=== PATIENT | male | born 1945 | race Caucasian/White ===

== ENCOUNTER 2016-05-10 08:15 | Outpatient (RCR) | payer MEDICARE ==
--- OUTSIDE RECORDS SUMMARY | 2016-03-01 08:59 | XMS REPORT | Continuity of Care Document ---
Author Author [facility] Organization [facility] Address Unknown Phone Unavailable Care Team Providers Care Account Executive Trainee Name Role Phone Felton Del Rio PCP [phone] Source Comments Some departments are not documenting in the electronic medical record. If you do not see the information that you expected, contact Release of Information in the Health Information Management department at [phone] for further assistance in locating additional records.[facility] Active Allergies and Adverse Reactions No Known Allergies Current Medications Prescription Sig. Disp. Refills Start End Date Status Date IBUPROFEN (MOTRIN PO) Take by mouth as Needed. Active amoxicillin (AMOXIL) 875 Take 875 mg by mouth Active mg tablet daily. NAPROXEN SODIUM (ALEVE Take by mouth as Needed. Active PO) Active Problems Problem Noted Date Tooth infection 07/07/2014 Social History Tobacco Use Types Packs/Day Years Used Date Never Smoker Smokeless Tobacco: Never Used Alcohol Use Drinks/Week oz/Week Comments Yes 2 Glasses of 1.2 wine Last Filed Vital Signs Vital Sign Reading Time Taken Blood Pressure 137/74 10/05/2015 10:17 AM CDT Pulse 58 10/05/2015 10:17 AM CDT Temperature 36.8 C (98.2 F) 10/05/2015 10:17 AM CDT Respiratory Rate 16 10/05/2015 10:17 AM CDT Height 1.854 m (6' 0.99") 10/05/2015 10:17 AM CDT Weight 99.338 kg (219 lb) 10/05/2015 10:17 AM CDT Body Mass Index 28.9 10/05/2015 10:17 AM CDT Oxygen Saturation 98% 10/05/2015 10:17 AM CDT Plan of Care Health Maintenance Due Date Last Done Comments Hepatitis C Screening 1945 Physical (Comprehensive) 01/29/1952 Exam Pertussis Vaccine 01/29/1956 Tetanus Vaccine 1962 Colorectal Cancer 1995 Screening Shingles Vaccine 2005 Prevnar/Pneumovax (#1) 2010 Influenza Vaccine 11/19/2015 Results from Last 3 Months Not on file
[2016-03-01 09:13] LABS: BASOPHILS # (AUTO) 0.1 10^3/uL (0.0-0.1); BASOPHILS % (AUTO) 0 % (0-10); EOSINOPHILS # (AUTO) 0.2 10^3/uL (0.0-0.3); EOSINOPHILS % (AUTO) 0 % (0-10); LYMPHOCYTES # (AUTO) 68.2 X 10^3 (1.0-4.0); LYMPHOCYTES % (AUTO) 91 % (12-44); MEAN CORPUSCULAR HEMOGLOBIN 31 PG (25-34); MEAN CORPUSCULAR HGB CONC 32 G/DL (32-36); MEAN CORPUSCULAR VOLUME 96 FL (80-99); MEAN PLATELET VOLUME 11.3 FL (7.4-10.4); MONOCYTES # (AUTO) 1.6 X 10^3 (0.0-1.0); MONOCYTES % (AUTO) 2 % (0-12); NEUTROPHILS # (AUTO) 4.7 X 10^3 (1.8-7.8); NEUTROPHILS % (AUTO) 6 % (42-75); PLATELET COUNT 170 10^3/uL (130-400); RED BLOOD COUNT 4.55 10^6/uL (4.35-5.85); RED CELL DISTRIBUTION WIDTH 15.1 % (10.0-14.5)
[2016-03-01 09:14] LABS: WHITE BLOOD COUNT 74.8 10^3/uL (4.3-11.0)
[2016-03-01 09:49] LABS: ALANINE AMINOTRANSFERASE 33 U/L (0-55); ALBUMIN 3.9 G/DL (3.2-4.5); ANION GAP 8 MMOL/L (5-14); ASPARTATE AMINO TRANSFERASE 38 U/L (5-34); BILIRUBIN,TOTAL 0.4 MG/DL (0.1-1.0); BLOOD UREA NITROGEN 15 MG/DL (7-18); BUN/CREATININE RATIO 16; CALCIUM 8.7 MG/DL (8.5-10.1); CARBON DIOXIDE 24 MMOL/L (21-32); CHLORIDE 108 MMOL/L (98-107); CREATININE SERUM 0.92 MG/DL (0.60-1.30); GFR ESTIMATED > 60; GLUCOSE 118 MG/DL (70-105); LACTATE DEHYDROGENASE 254 U/L (125-220); POTASSIUM 4.6 MMOL/L (3.6-5.0); SODIUM 140 MMOL/L (135-145); TOTAL PROTEIN 6.1 G/DL (6.4-8.2)
[2016-04-12 08:44] LABS: BASOPHILS # (AUTO) 0.2 10^3/uL (0.0-0.1); BASOPHILS % (AUTO) 0 % (0-10); EOSINOPHILS # (AUTO) 0.2 10^3/uL (0.0-0.3); EOSINOPHILS % (AUTO) 0 % (0-10); LYMPHOCYTES # (AUTO) 90.2 X 10^3 (1.0-4.0); LYMPHOCYTES % (AUTO) 89 % (12-44); MEAN CORPUSCULAR HEMOGLOBIN 32 PG (25-34); MEAN CORPUSCULAR HGB CONC 33 G/DL (32-36); MEAN CORPUSCULAR VOLUME 96 FL (80-99); MEAN PLATELET VOLUME 11.3 FL (7.4-10.4); MONOCYTES # (AUTO) 2.1 X 10^3 (0.0-1.0); MONOCYTES % (AUTO) 2 % (0-12); NEUTROPHILS # (AUTO) 8.4 X 10^3 (1.8-7.8); NEUTROPHILS % (AUTO) 8 % (42-75); PLATELET COUNT 236 10^3/uL (130-400); RED BLOOD COUNT 4.73 10^6/uL (4.35-5.85); RED CELL DISTRIBUTION WIDTH 14.8 % (10.0-14.5)
[2016-04-12 09:49] LABS: ALANINE AMINOTRANSFERASE 24 U/L (0-55); ALBUMIN 4.2 G/DL (3.2-4.5); ANION GAP 10 MMOL/L (5-14); ASPARTATE AMINO TRANSFERASE 28 U/L (5-34); BILIRUBIN,TOTAL 0.4 MG/DL (0.1-1.0); BLOOD UREA NITROGEN 22 MG/DL (7-18); BUN/CREATININE RATIO 23; CALCIUM 8.7 MG/DL (8.5-10.1); CARBON DIOXIDE 23 MMOL/L (21-32); CHLORIDE 106 MMOL/L (98-107); CREATININE SERUM 0.96 MG/DL (0.60-1.30); GFR ESTIMATED > 60; GLUCOSE 92 MG/DL (70-105); LACTATE DEHYDROGENASE 258 U/L (125-220); SODIUM 139 MMOL/L (135-145); TOTAL PROTEIN 6.2 G/DL (6.4-8.2)
[2016-04-12 12:50] LABS: WHITE BLOOD COUNT 101.1 10^3/uL (4.3-11.0)
[2016-05-10 08:52] LABS: BASOPHILS # (AUTO) 0.2 10^3/uL (0.0-0.1); BASOPHILS % (AUTO) 0 % (0-10); EOSINOPHILS # (AUTO) 0.2 10^3/uL (0.0-0.3); EOSINOPHILS % (AUTO) 0 % (0-10); LYMPHOCYTES # (AUTO) 82.9 X 10^3 (1.0-4.0); LYMPHOCYTES % (AUTO) 90 % (12-44); MEAN CORPUSCULAR HEMOGLOBIN 31 PG (25-34); MEAN CORPUSCULAR HGB CONC 33 G/DL (32-36); MEAN CORPUSCULAR VOLUME 95 FL (80-99); MEAN PLATELET VOLUME 11.2 FL (7.4-10.4); MONOCYTES # (AUTO) 2.6 X 10^3 (0.0-1.0); MONOCYTES % (AUTO) 3 % (0-12); NEUTROPHILS # (AUTO) 5.9 X 10^3 (1.8-7.8); NEUTROPHILS % (AUTO) 6 % (42-75); PLATELET COUNT 216 10^3/uL (130-400); RED BLOOD COUNT 4.79 10^6/uL (4.35-5.85); RED CELL DISTRIBUTION WIDTH 14.9 % (10.0-14.5)
[2016-05-10 09:46] LABS: WHITE BLOOD COUNT 91.7 10^3/uL (4.3-11.0)
== END 2016-05-30 | disposition home or self-care (01) ==
LOC: ONC 08:15
PROVIDERS: ATTEND Internal Medicine Hematology & Oncology
DX: C91.10 Chronic lymphocytic leukemia of B-cell type not having achieved remission (principal); Z79.899 Other long term (current) drug therapy
CPT/HCPCS: 36415; 80053; 83615; 85025; 99213

== ENCOUNTER 2016-06-28 09:37 | Outpatient (RCR) | payer MEDICARE ==
[2016-06-28 09:05] LABS: BASOPHILS # (AUTO) 0.2 10^3/uL (0.0-0.1); BASOPHILS % (AUTO) 0 % (0-10); EOSINOPHILS # (AUTO) 0.3 10^3/uL (0.0-0.3); EOSINOPHILS % (AUTO) 0 % (0-10); LYMPHOCYTES # (AUTO) 80.5 X 10^3 (1.0-4.0); LYMPHOCYTES % (AUTO) 89 % (12-44); MEAN CORPUSCULAR HEMOGLOBIN 31 PG (25-34); MEAN CORPUSCULAR HGB CONC 32 G/DL (32-36); MEAN CORPUSCULAR VOLUME 96 FL (80-99); MEAN PLATELET VOLUME 11.4 FL (7.4-10.4); MONOCYTES # (AUTO) 3.3 X 10^3 (0.0-1.0); MONOCYTES % (AUTO) 4 % (0-12); NEUTROPHILS # (AUTO) 6.5 X 10^3 (1.8-7.8); NEUTROPHILS % (AUTO) 7 % (42-75); PLATELET COUNT 200 10^3/uL (130-400); RED BLOOD COUNT 4.67 10^6/uL (4.35-5.85)
[2016-06-28 09:19] LABS: WHITE BLOOD COUNT 90.7 10^3/uL (4.3-11.0)
[2016-06-28 09:43] LABS: ALANINE AMINOTRANSFERASE 24 U/L (0-55); ANION GAP 9 MMOL/L (5-14); ASPARTATE AMINO TRANSFERASE 29 U/L (5-34); BILIRUBIN,TOTAL 0.4 MG/DL (0.1-1.0); BLOOD UREA NITROGEN 17 MG/DL (7-18); BUN/CREATININE RATIO 18; CALCIUM 8.8 MG/DL (8.5-10.1); CARBON DIOXIDE 26 MMOL/L (21-32); CHLORIDE 107 MMOL/L (98-107); CREATININE SERUM 0.93 MG/DL (0.60-1.30); GFR ESTIMATED > 60; GLUCOSE 90 MG/DL (70-105); LACTATE DEHYDROGENASE 208 U/L (125-220); POTASSIUM 5.4 MMOL/L (3.6-5.0); SODIUM 142 MMOL/L (135-145); TOTAL PROTEIN 6.2 G/DL (6.4-8.2)
== END 2016-09-26 | disposition home or self-care (01) ==
LOC: ONC 09:37
PROVIDERS: ATTEND Internal Medicine Hematology & Oncology
DX: C91.10 Chronic lymphocytic leukemia of B-cell type not having achieved remission; Z79.899 Other long term (current) drug therapy
CPT/HCPCS: 36415; 80053; 83615; 85025; 99213

== ENCOUNTER 2016-11-04 16:21 | Emergency (ER) | payer MEDICARE ==
[~2016-11-04] VITALS: Ht 182.9 cm; Wt 98.0 kg
[2016-11-04] MEDS ORDERED: PANT40TA3 (16:37)
[2016-11-04] MEDS ORDERED: SUCR1TAB (16:37)
--- NOTE | 2016-11-04 17:14 | ED Abdominal Pain ---
General Chief Complaint: Abdominal/GI Problems Stated Complaint: STOMACH PAIN Nursing Triage Note: ADM TO ROOM REPORTS ONSET OF LOW ABD PAIN NOTICED KNOT IN LOW ABD WENT TO DR IN [place] AND [facility] [employer] WAS GIVEN X2 RX,BUT DID NOT GET THEM FILLED. WAS TO HAVE CT,BUT DID NOT GET ORDERED. HAS PMH OF LUKEMIA DX 2 YEARS AGO. DID NOT DO ANY CHEMO. Sepsis Screen: No Definite Risk Source of Information: Patient, Family Exam Limitations: No Limitations History of Present Illness Time Seen By Provider: 17:14 Initial Comments 71-year-old male patient presents to the emergency department with complaints of lower abdominal pain this a.m. States he was seen by the nurse practitioner in [place] and Dr. STREETER's office and was given 2 prescriptions, but did not fill these. States he was supposed to be scheduled today for a CAT scan of the abdomen, but did not get the order from the doctor. States they were going to schedule the scan for next week, but he leaves for a business trip Monday. Does have a history of leukemia and did NOT take chemotherapy. Patient states he sees Dr. Austin and [facility] APRN every 3-4 months for blood work. WBC count normally ranges in the 70K-100K per patient. Patient states he noticed a "knot" next to the umbilicus this a.m. which was tender. I initially thought this was related to a lymph node. States he was fishing around on the area when it "instantly went away." Reports pain has improved; however, he still continues to have mild to moderate abdominal pain. Timing/Duration: Other (this a.m.) Severity/Quality: Sharp Location: Periumbilical Radiation: No Radiation Activities at Onset: None Modifying Factors: Worsens With Palpation Allergies and Home Medications Allergies Coded Allergies: No Allergy Information Available (Unverified , 01/01/15) Home Medications Pantoprazole Sodium 40 Mg Tablet., (Reported) Sucralfate 1 Gm Tablet, (Reported) Review of Systems Constitutional: No chills, No fever, No malaise Respiratory: Denies Cough, Denies Shortness of Air Cardiovascular: Denies Chest Pain, Denies Edema, Denies Lightheadedness, Denies Palpitations Gastrointestinal: See HPI, Denies Abdomen Distended, Abdominal Pain, Denies Constipated, Denies Diarrhea, Denies Nausea, Denies Poor Appetite, Denies Poor Fluid Intake, Denies Rectal Bleeding, Denies Vomiting Genitourinary: Denies Burning, Denies Frequency, Denies Hematuria, Denies Pain Musculoskeletal: no symptoms reported Skin: no symptoms reported Psychiatric/Neurological: No Symptoms Reported All Other Systems Reviewed Negative Unless Noted: Yes (Negative excepted noted.) Past Dhoslea-Rvpztm-Arwzug Hx Patient Social History Alcohol Use: Occasionally Uses Recreational Drug Use: No Smoking Status: Never a Smoker Recent Foreign Travel: No Contact w/Someone Who Travel: No Recent Infectious Disease Expo: No Surgeries HX Surgeries: Yes Surgeries: Gallbladder Respiratory Hx Respiratory Disorders: No Cardiovascular Hx Cardiac Disorders: Yes Cardiac Disorders: Heart Attack, High Cholesterol, Hypertension Neurological Hx Neurological Disorders: No Genitourinary Hx Genitourinary Disorders: No Gastrointestinal Hx Gastrointestinal Disorders: No Musculoskeletal Hx Musculoskeletal Disorders: No Cancer Hx Cancer: Yes Cancer: Leukemia Reviewed Nursing Assessment Reviewed/Agree w Nursing PMH: Yes Family Medical History Significant Family History: No Pertinent Family Hx Physical Exam Vital Signs VS - Last 72 Hours, by Label 11/04/16 11/04/16 16:27 20:15 Temp 97.8 97.8 Pulse 82 82 Resp 18 18 B/P (MAP) 119/79 Pulse Ox 96 96 O2 Delivery Room Air Capillary Refill : Less Than 3 Seconds General Appearance: WD/WN, no apparent distress, other (younger appearing than stated age.) HEENT: PERRL/EOMI, pharynx normal Neck: supple, normal inspection Respiratory: lungs clear, normal breath sounds, no respiratory distress, no accessory muscle use Cardiovascular: regular rate, rhythm, no murmur Gastrointestinal: normal bowel sounds, soft, no organomegaly, No distended, No guarding, No rebound, tenderness (periumbilical tenderness), hernia (reducible umbilical hernia with mild tenderness) Extremities: normal capillary refill Back: normal inspection Neurologic/Psychiatric: alert, normal mood/affect, oriented x 3 Skin: normal color, warm/dry Progress/Results/Core Measures Results/Orders Lab Results Laboratory Tests Test 11/04/16 17:37 11/04/16 17:40 Range/Units White Blood Count 137.2 *H 4.3-11.0 10^3/uL Red Blood Count 4.70 4.35-5.85 10^6/uL Hemoglobin 14.0 13.3-17.7 G/DL Hematocrit 45 40-54 % Mean Corpuscular Volume 95 80-99 FL Mean Corpuscular Hemoglobin 30 25-34 PG Mean Corpuscular Hemoglobin Concent 32 32-36 G/DL Red Cell Distribution Width 15.0 H 10.0-14.5 % Platelet Count 183 130-400 10^3/uL Mean Platelet Volume 11.5 H 7.4-10.4 FL Neutrophils (%) (Auto) 42-75 % Lymphocytes (%) (Auto) 12-44 % Monocytes (%) (Auto) 0-12 % Eosinophils (%) (Auto) 0-10 % Basophils (%) (Auto) 0-10 % Neutrophils # (Auto) 1.8-7.8 X 10^3 Lymphocytes # (Auto) 1.0-4.0 X 10^3 Monocytes # (Auto) 0.0-1.0 X 10^3 Eosinophils # (Auto) 0.0-0.3 10^3/uL Basophils # (Auto) 0.0-0.1 10^3/uL Sodium Level 139 135-145 MMOL/L Potassium Level 4.8 3.6-5.0 MMOL/L Chloride Level 107 98-107 MMOL/L Carbon Dioxide Level 23 21-32 MMOL/L Anion Gap 9 5-14 MMOL/L Blood Urea Nitrogen 21 H 7-18 MG/DL Creatinine 0.94 0.60-1.30 MG/DL Estimat Glomerular Filtration Rate > 60 BUN/Creatinine Ratio 22 Glucose Level 106 H 70-105 MG/DL Calcium Level 9.1 8.5-10.1 MG/DL Total Bilirubin 0.3 0.1-1.0 MG/DL Aspartate Amino Transf (AST/SGOT) 36 H 5-34 U/L Alanine Aminotransferase (ALT/SGPT) 29 0-55 U/L Alkaline Phosphatase 90 40-136 U/L Total Protein 6.7 6.4-8.2 GM/DL Albumin 4.1 3.2-4.5 GM/DL Lipase 17 8-78 U/L Urine Color YELLOW Urine Clarity CLEAR Urine pH 6 5-9 Urine Specific [place] 1.010 L 1.016-1.022 Urine Protein NEGATIVE NEGATIVE Urine Glucose (UA) NEGATIVE NEGATIVE Urine Ketones NEGATIVE NEGATIVE Urine Nitrite NEGATIVE NEGATIVE Urine Bilirubin NEGATIVE NEGATIVE Urine Urobilinogen NORMAL NORMAL MG/DL Urine Leukocyte Esterase NEGATIVE NEGATIVE Urine RBC (Auto) NEGATIVE NEGATIVE Urine RBC NONE /HPF Urine WBC NONE /HPF Urine Squamous Epithelial Cells RARE /HPF Urine Crystals NONE /LPF Urine Bacteria NONE /HPF Urine Casts NONE /LPF Urine Mucus NEGATIVE /LPF Urine Culture Indicated NO My Orders Orders - KERRY PAIZ Cbc With Automated Diff (11/04/16 17:30) Comprehensive Metabolic Panel (11/04/16 17:30) Lipase (11/04/16 17:30) Ua Culture If Indicated (11/04/16 17:30) Saline Lock/Iv-Start (11/04/16 17:30) Ct Abdomen/Pelvis W (11/04/16 17:30) Iohexol Injection (Omnipaque 350 Mg/Ml 1 (11/04/16 18:15) Ns (Ivpb) (Sodium Chloride 0.9% Ivpb Bag (11/04/16 18:15) Medications Given in ED Vital Signs/I&O Vital Sign - Last 12Hours 11/04/16 11/04/16 16:27 20:15 Temp 97.8 97.8 Pulse 82 82 Resp 18 18 B/P (MAP) 119/79 Pulse Ox 96 96 O2 Delivery Room Air Blood Pressure Mean: 92 Diagnostic Imaging Diagonstic Imaging: CT Plain Films/CT/US/NM/MRI: abdomen, pelvis Comments FINDINGS: There has been development of interstitial lung disease in the anterior left base which appears to involve the lower lobe. There is suggestion of adenopathy in the visualized portion of the mediastinum although this is incompletely evaluated. There is continued splenomegaly. No focal hepatic or splenic abnormality is identified. The gallbladder is surgically absent. No pancreatic or adrenal gland abnormality is identified. The kidneys are also stable and unremarkable. There has been an overall increase in central retroperitoneal and mesenteric adenopathy. The largest lymph nodes are present along the iliac chains with right external iliac lymph node measuring 6.5 x 3.2 cm. This previously measured 5.1 x 2.1 cm. Right common iliac lymph node measures 3.4 x 2.8 cm with previous measurement of 2.2 x 1.6 cm. No free fluid is identified. There is no evidence of bowel obstruction. At the level of the umbilicus there is a persistent nodule slightly right of midline which measures 1.5 cm in diameter. This could represent subcutaneous fluid collection or mass. Partially opacified urinary bladder is unremarkable. There are also enlarged inguinal lymph nodes, bilaterally. IMPRESSION: Overall worsening of splenomegaly and diffuse abdominal and pelvic adenopathy indicating progression of leukemia. The palpable abnormality in the anterior abdomen may represent subcutaneous fluid collection or enlarging lymph node. Clinical correlation would be useful. Aspiration could be attempted. Otherwise, there is no evidence of acute abnormality or other significant change. Dictated on workstation # [id number] Reviewed: Reviewed by Me (radiology report reviewed by me) Departure Communication Progress Notes Patient is noted to have a white count of 137K with a known h/o leukemia. I did discuss the patient's case with Dr. Christianson. Recommends discharge to home and follow-up as an outpatient with Dr. Raines this week. All laboratory findings, diagnostic study findings, and recommendations by Dr. Christianson for follow-up with Dr. Raines were discussed with the patient. Patient states he will return from his trip on Monday and will call Monday morning for appointment time with Dr. Austin. Patient also instructed to follow-up with Dr. Smith as an outpatient with a surgeon of his choice for discussion of possible need for hernia repair. Patient voices understanding and states he will contact Dr. Smith's office for appointment time. Impression Impression: Primary Impression: Abdominal pain Qualified Codes: R10.33 - Periumbilical pain Additional Impressions: Umbilical hernia without obstruction and without gangrene History of leukemia Disposition: 01 HOME, SELF-CARE Condition: Improved Departure-Patient Inst. Decision time for Depature: 19:40 Referrals: YONIS SMITH RICKY D DO (PCP/Family) Primary Care Physician Patient Instructions: Acute Abdomen (Belly Pain), Adult (DC), Umbilical Hernia , Adult Add. Discharge Instructions: All discharge instructions reviewed with patient and/or family. Voiced understanding. Continue usual home medications. Drink plenty of fluids. Avoid heavy lifting greater than 8-10 pounds. Abdominal binder as instructed. Follow-up with Dr. Smith as an outpatient for recheck and for possible need of umbilical hernia repair. Follow-up with your family practitioner and oncologist for recheck. Return to the emergency department immediately for worsened pain, abdominal swelling, fever, vomiting, or any other concerns. KERRY PAIZ Nov 04, 2016 17:14
[2016-11-04 17:49] LABS: MEAN CORPUSCULAR HEMOGLOBIN 30 PG (25-34); MEAN CORPUSCULAR HGB CONC 32 G/DL (32-36); MEAN CORPUSCULAR VOLUME 95 FL (80-99); MEAN PLATELET VOLUME 11.5 FL (7.4-10.4); PLATELET COUNT 183 10^3/uL (130-400)
[2016-11-04 17:52] LABS: BILIRUBIN,URINE NEGATIVE (NEGATIVE); KETONES,URINE NEGATIVE (NEGATIVE); LEUKOCYTE ESTERASE ,URINE NEGATIVE (NEGATIVE); NITRITE,URINE NEGATIVE (NEGATIVE); PH,URINE 6 (5-9); PROTEIN,URINE NEGATIVE (NEGATIVE); UROBILINOGEN,URINE NORMAL (NORMAL)
[2016-11-04 17:52] LABS: WHITE BLOOD COUNT 137.2 10^3/uL (4.3-11.0)
[2016-11-04 18:01] LABS: SQUAMOUS EPITHELIAL CELL,UR RARE /HPF
[2016-11-04 18:10] LABS: ALANINE AMINOTRANSFERASE 29 U/L (0-55); ALBUMIN 4.1 GM/DL (3.2-4.5); ANION GAP 9 MMOL/L (5-14); ASPARTATE AMINO TRANSFERASE 36 U/L (5-34); BILIRUBIN,TOTAL 0.3 MG/DL (0.1-1.0); BLOOD UREA NITROGEN 21 MG/DL (7-18); BUN/CREATININE RATIO 22; CALCIUM 9.1 MG/DL (8.5-10.1); CARBON DIOXIDE 23 MMOL/L (21-32); CHLORIDE 107 MMOL/L (98-107); CREATININE SERUM 0.94 MG/DL (0.60-1.30); GFR ESTIMATED > 60; GLUCOSE 106 MG/DL (70-105); LIPASE 17 U/L (8-78); POTASSIUM 4.8 MMOL/L (3.6-5.0); SODIUM 139 MMOL/L (135-145); TOTAL PROTEIN 6.7 GM/DL (6.4-8.2)
[2016-11-04] MEDS ORDERED: IOHEXOL 350 MG/ML 100 ML (OMNIPAQUE 350) VIAL IV ONE (18:15)
[2016-11-04] MEDS ORDERED: NS 100 ML (IVPB) BAG IV ONE (18:15)
--- NOTE | 2016-11-04 18:46 | Diagnostic Imaging Report ---
PROCEDURE: CT abdomen and pelvis with contrast. TECHNIQUE: Multiple contiguous axial images were obtained through the abdomen and pelvis after administration of intravenous contrast. INDICATION: Abdominal pain and palpable abnormality in the abdomen in patient with known lymphoma. COMPARISON: Study of 08/20/2015. FINDINGS: There has been development of interstitial lung disease in the anterior left base which appears to involve the lower lobe. There is suggestion of adenopathy in the visualized portion of the mediastinum although this is incompletely evaluated. There is continued splenomegaly. No focal hepatic or splenic abnormality is identified. The gallbladder is surgically absent. No pancreatic or adrenal gland abnormality is identified. The kidneys are also stable and unremarkable. There has been an overall increase in central retroperitoneal and mesenteric adenopathy. The largest lymph nodes are present along the iliac chains with right external iliac lymph node measuring 6.5 x 3.2 cm. This previously measured 5.1 x 2.1 cm. Right common iliac lymph node measures 3.4 x 2.8 cm with previous measurement of 2.2 x 1.6 cm. No free fluid is identified. There is no evidence of bowel obstruction. At the level of the umbilicus there is a persistent nodule slightly right of midline which measures 1.5 cm in diameter. This could represent subcutaneous fluid collection or mass. Partially opacified urinary bladder is unremarkable. There are also enlarged inguinal lymph nodes, bilaterally. IMPRESSION: Overall worsening of splenomegaly and diffuse abdominal and pelvic adenopathy indicating progression of leukemia. The palpable abnormality in the anterior abdomen may represent subcutaneous fluid collection or enlarging lymph node. Clinical correlation would be useful. Aspiration could be attempted. Otherwise, there is no evidence of acute abnormality or other significant change. Dictated by: Dictated on workstation # [id number]
[2016-11-04 20:15] VITALS: BP 119/79
== END 2016-11-04 20:15 | disposition home or self-care (01) ==
LOC: EDUNIT# 16:21 → ER 16:24
DX: K42.9 Umbilical hernia without obstruction or gangrene (principal); I25.2 Old myocardial infarction; E78.00 Pure hypercholesterolemia, unspecified; I10 Essential (primary) hypertension; Z85.6 Personal history of leukemia
CPT/HCPCS: 36415; 74177; 80053; 81000; 83690; 85025; 99282

== ENCOUNTER → 2016-11-15 | Outpatient (CLI) | payer MEDICARE ==
[~2016-11-15] MED LIST: PANT40TA3; SUCR1TAB
--- NOTE | 2016-11-16 13:48 | Diagnostic Imaging Report ---
PET/CT. INDICATION: Chronic lymphocytic leukemia. After intravenous administration of 12.84 mCi of F18-FDG, a series of overlapping emission and transmission PET images was obtained. In the coronal, transaxial and sagittal planes, the area imaged extended from the skull base through the upper thighs. There are no previous PET/CT examinations available for comparison. The recent CT abdomen/pelvis exam of 11/04/16 did note an increase in the size of the spleen as well as diffuse abdominal and pelvic adenopathy. FINDINGS: On this study, the spleen is enlarged but not hypermetabolic. The spleen has a maximum SUV of 2.5 which is similar to the maximum SUV of the liver. However, the extensive abdominal and pelvic adenopathy seen on the prior exam is again evident. The nodes are also only slightly hypermetabolic with maximum SUVs ranging from 2.0 to 3.5. The images through the thorax also show that there has been an increase in the adenopathy involving both axillae and both supraclavicular regions since the previous CT neck, chest, abdomen and pelvis exam of 08/20/15. These nodes show only slight hypermetabolic activity as well with a maximum SUV of approximately 3.3. There has also been a generalized increase in the adenopathy involving the neck since the prior exam. The maximum SUV of these nodes is 3.9. There is no other hypermetabolic activity identified to suggest the presence of malignancy. There is a small area of slightly increased hypermetabolic activity in the rectum. This has a maximum SUV of 3.4. I suspect that this is physiologic in nature but clinical followup is recommended. IMPRESSION: 1. The spleen is enlarged but not hypermetabolic. However, there is extensive adenopathy throughout the neck, chest, abdomen and pelvis. While these nodes are not intensely hypermetabolic, they should be considered secondary to neoplasm until proven otherwise. 2. The small focus of slightly increased hypermetabolic activity in the rectum may well be physiologic in nature. The possibility of an underlying malignancy in this area would be unlikely but should still be considered. 3. These results were discussed with NIGHAT Pinon. Dictated by: Dictated on workstation # [id number]
== END ==
LOC: RAD 11:07
PROVIDERS: ATTEND Nurse Practitioner Adult Health
DX: C83.00 Small cell B-cell lymphoma, unspecified site (principal); C91.10 Chronic lymphocytic leukemia of B-cell type not having achieved remission

== ENCOUNTER 2016-11-29 08:54 | Outpatient (RCR) | payer MEDICARE ==
[2016-11-14 09:33] LABS: BASOPHILS # (AUTO) 0.4 10^3/uL (0.0-0.1); BASOPHILS % (AUTO) 0 % (0-10); EOSINOPHILS # (AUTO) 0.3 10^3/uL (0.0-0.3); EOSINOPHILS % (AUTO) 0 % (0-10); LYMPHOCYTES # (AUTO) 114.1 X 10^3 (1.0-4.0); LYMPHOCYTES % (AUTO) 93 % (12-44); MEAN CORPUSCULAR HEMOGLOBIN 30 PG (25-34); MEAN CORPUSCULAR HGB CONC 31 G/DL (32-36); MEAN CORPUSCULAR VOLUME 95 FL (80-99); MEAN PLATELET VOLUME 11.3 FL (7.4-10.4); MONOCYTES % (AUTO) 2 % (0-12); NEUTROPHILS # (AUTO) 6.2 X 10^3 (1.8-7.8); NEUTROPHILS % (AUTO) 5 % (42-75); PLATELET COUNT 188 10^3/uL (130-400); RED BLOOD COUNT 4.63 10^6/uL (4.35-5.85); RED CELL DISTRIBUTION WIDTH 14.9 % (10.0-14.5)
[2016-11-14 09:34] LABS: WHITE BLOOD COUNT 122.9 10^3/uL (4.3-11.0)
[2016-11-14 09:56] LABS: ALANINE AMINOTRANSFERASE 44 U/L (0-55); ALBUMIN 3.8 GM/DL (3.2-4.5); ANION GAP 7 MMOL/L (5-14); ASPARTATE AMINO TRANSFERASE 46 U/L (5-34); BILIRUBIN,TOTAL 0.4 MG/DL (0.1-1.0); BLOOD UREA NITROGEN 21 MG/DL (7-18); BUN/CREATININE RATIO 20; CALCIUM 8.6 MG/DL (8.5-10.1); CARBON DIOXIDE 25 MMOL/L (21-32); CHLORIDE 108 MMOL/L (98-107); CREATININE SERUM 1.03 MG/DL (0.60-1.30); GFR ESTIMATED > 60; GLUCOSE 94 MG/DL (70-105); LACTATE DEHYDROGENASE 302 U/L (125-220); SODIUM 140 MMOL/L (135-145); TOTAL PROTEIN 6.5 GM/DL (6.4-8.2)
[2016-11-14 11:38] LABS: POTASSIUM 5.8 MMOL/L (3.6-5.0)
[2016-11-23 09:27] LABS: BASOPHILS # (AUTO) 0.4 10^3/uL (0.0-0.1); BASOPHILS % (AUTO) 0 % (0-10); EOSINOPHILS # (AUTO) 0.2 10^3/uL (0.0-0.3); EOSINOPHILS % (AUTO) 0 % (0-10); LYMPHOCYTES # (AUTO) 118.7 X 10^3 (1.0-4.0); LYMPHOCYTES % (AUTO) 90 % (12-44); MEAN CORPUSCULAR HEMOGLOBIN 30 PG (25-34); MEAN CORPUSCULAR HGB CONC 32 G/DL (32-36); MEAN CORPUSCULAR VOLUME 95 FL (80-99); MONOCYTES # (AUTO) 3.7 X 10^3 (0.0-1.0); MONOCYTES % (AUTO) 3 % (0-12); NEUTROPHILS # (AUTO) 8.5 X 10^3 (1.8-7.8); NEUTROPHILS % (AUTO) 7 % (42-75); PLATELET COUNT 190 10^3/uL (130-400); RED CELL DISTRIBUTION WIDTH 14.7 % (10.0-14.5)
[2016-11-23 09:30] LABS: WHITE BLOOD COUNT 131.6 10^3/uL (4.3-11.0)
[2016-11-23 09:52] LABS: ALANINE AMINOTRANSFERASE 25 U/L (0-55); ALBUMIN 3.7 GM/DL (3.2-4.5); ANION GAP 11 MMOL/L (5-14); ASPARTATE AMINO TRANSFERASE 30 U/L (5-34); BILIRUBIN,TOTAL 0.3 MG/DL (0.1-1.0); BLOOD UREA NITROGEN 20 MG/DL (7-18); BUN/CREATININE RATIO 23; CALCIUM 8.4 MG/DL (8.5-10.1); CARBON DIOXIDE 20 MMOL/L (21-32); CHLORIDE 111 MMOL/L (98-107); CREATININE SERUM 0.86 MG/DL (0.60-1.30); GFR ESTIMATED > 60; GLUCOSE 105 MG/DL (70-105); LACTATE DEHYDROGENASE 254 U/L (125-220); MAGNESIUM 2.1 MG/DL (1.8-2.4); POTASSIUM 5.3 MMOL/L (3.6-5.0); SODIUM 142 MMOL/L (135-145); TOTAL PROTEIN 6.1 GM/DL (6.4-8.2); URIC ACID 4.7 MG/DL (2.6-7.2)
[~2016-11-29] VITALS: Ht 182.9 cm; Wt 98.9 kg
[~2016-11-29 08:54] MED LIST changes: +ACETAMINOPHEN 325 MG TAB (TYLENOL) CANCER CTR PO PRN; +BENDAMUSTINE HCL 140 MG in NS (IVPB) CANCER CENTER 50 ML IV SCH; +IBUPROFEN TABLET 200 MG TAB PO ONE; +MEPERIDINE (DEMEROL) INJ 50 MG/ML CANCER CTR IV PRN; +MEPERIDINE (DEMEROL) INJ 50 MG/ML CANCER CTR ONE; +NS IV 1000 ML (CANCER CTR) IV SCH; +NS IV ONE; +ONDANSETRON 16 MG, DEXAMETHASONE 10 MG/NS 50 ML IVPB IV SCH; +RITUXIMAB FOR IV ONE; +RITUXIMAB IV ONE; +diphenhydrAMINE 50 MG/ML INJ (CANCER CENTER) IV PRN; +riTUXimab 1,000 MG in NS (IVPB) CANCER CENTER 233 ML IV SCH
[2016-11-29 09:23] LABS: BASOPHILS % (AUTO) 0 % (0-10); EOSINOPHILS # (AUTO) 0.2 10^3/uL (0.0-0.3); EOSINOPHILS % (AUTO) 1 % (0-10); LYMPHOCYTES # (AUTO) 8.2 X 10^3 (1.0-4.0); LYMPHOCYTES % (AUTO) 53 % (12-44); MEAN CORPUSCULAR HEMOGLOBIN 31 PG (25-34); MEAN CORPUSCULAR HGB CONC 34 G/DL (32-36); MEAN CORPUSCULAR VOLUME 92 FL (80-99); MEAN PLATELET VOLUME 11.1 FL (7.4-10.4); MONOCYTES # (AUTO) 0.7 X 10^3 (0.0-1.0); MONOCYTES % (AUTO) 5 % (0-12); NEUTROPHILS # (AUTO) 6.4 X 10^3 (1.8-7.8); NEUTROPHILS % (AUTO) 41 % (42-75); PLATELET COUNT 196 10^3/uL (130-400); RED BLOOD COUNT 4.77 10^6/uL (4.35-5.85); RED CELL DISTRIBUTION WIDTH 14.9 % (10.0-14.5); WHITE BLOOD COUNT 15.5 10^3/uL (4.3-11.0)
[2016-11-29 09:56] LABS: ALANINE AMINOTRANSFERASE 51 U/L (0-55); ANION GAP 9 MMOL/L (5-14); ASPARTATE AMINO TRANSFERASE 26 U/L (5-34); BILIRUBIN,TOTAL 0.4 MG/DL (0.1-1.0); BLOOD UREA NITROGEN 24 MG/DL (7-18); BUN/CREATININE RATIO 26; CALCIUM 9.2 MG/DL (8.5-10.1); CARBON DIOXIDE 26 MMOL/L (21-32); CHLORIDE 106 MMOL/L (98-107); CREATININE SERUM 0.94 MG/DL (0.60-1.30); GFR ESTIMATED > 60; GLUCOSE 103 MG/DL (70-105); MAGNESIUM 2.2 MG/DL (1.8-2.4); POTASSIUM 5.1 MMOL/L (3.6-5.0); SODIUM 141 MMOL/L (135-145); TOTAL PROTEIN 6.5 GM/DL (6.4-8.2); URIC ACID 5.6 MG/DL (2.6-7.2)
== END 2016-12-15 12:16 | disposition home or self-care (01) ==
LOC: ONC 08:54
PROVIDERS: ATTEND Internal Medicine Hematology & Oncology
DX: Z51.11 Encounter for antineoplastic chemotherapy (principal); C91.10 Chronic lymphocytic leukemia of B-cell type not having achieved remission; Z79.899 Other long term (current) drug therapy
CPT/HCPCS: 36415; 80053; 83615; 83735; 84550; 85025; 96375; 96409; 96411; 96413; 96415; 99213

== ENCOUNTER 2016-12-21 14:53 | Outpatient (RCR) | payer MEDICARE ==
[2016-12-20 11:00] LABS: BASOPHILS % (AUTO) 0 % (0-10); EOSINOPHILS # (AUTO) 0.2 10^3/uL (0.0-0.3); EOSINOPHILS % (AUTO) 2 % (0-10); LYMPHOCYTES # (AUTO) 0.8 X 10^3 (1.0-4.0); LYMPHOCYTES % (AUTO) 13 % (12-44); MEAN CORPUSCULAR HEMOGLOBIN 31 PG (25-34); MEAN CORPUSCULAR HGB CONC 33 G/DL (32-36); MEAN CORPUSCULAR VOLUME 92 FL (80-99); MEAN PLATELET VOLUME 11.1 FL (7.4-10.4); MONOCYTES # (AUTO) 0.7 X 10^3 (0.0-1.0); MONOCYTES % (AUTO) 11 % (0-12); NEUTROPHILS # (AUTO) 4.6 X 10^3 (1.8-7.8); NEUTROPHILS % (AUTO) 73 % (42-75); PLATELET COUNT 194 10^3/uL (130-400); RED BLOOD COUNT 4.74 10^6/uL (4.35-5.85); RED CELL DISTRIBUTION WIDTH 14.4 % (10.0-14.5); WHITE BLOOD COUNT 6.2 10^3/uL (4.3-11.0)
[2016-12-20 11:21] LABS: ALANINE AMINOTRANSFERASE 26 U/L (0-55); ALBUMIN 3.9 GM/DL (3.2-4.5); ANION GAP 7 MMOL/L (5-14); ASPARTATE AMINO TRANSFERASE 28 U/L (5-34); BILIRUBIN,TOTAL 0.4 MG/DL (0.1-1.0); BLOOD UREA NITROGEN 23 MG/DL (7-18); BUN/CREATININE RATIO 26; CARBON DIOXIDE 25 MMOL/L (21-32); CHLORIDE 108 MMOL/L (98-107); CREATININE SERUM 0.87 MG/DL (0.60-1.30); GFR ESTIMATED > 60; GLUCOSE 104 MG/DL (70-105); LACTATE DEHYDROGENASE 191 U/L (125-220); MAGNESIUM 1.9 MG/DL (1.8-2.4); POTASSIUM 4.4 MMOL/L (3.6-5.0); SODIUM 140 MMOL/L (135-145); TOTAL PROTEIN 6.7 GM/DL (6.4-8.2); URIC ACID 4.1 MG/DL (2.6-7.2)
[~2016-12-21] VITALS: Ht 182.9 cm; Wt 100.2 kg
[~2016-12-21 14:53] MED LIST changes: +ACETAMINOPHEN 325 MG TAB (TYLENOL) CANCER CTR ONE; -ACETAMINOPHEN 325 MG TAB (TYLENOL) CANCER CTR PO PRN; -IBUPROFEN TABLET 200 MG TAB PO ONE; -MEPERIDINE (DEMEROL) INJ 50 MG/ML CANCER CTR IV PRN; -MEPERIDINE (DEMEROL) INJ 50 MG/ML CANCER CTR ONE; -NS IV ONE; -RITUXIMAB FOR IV ONE; -RITUXIMAB IV ONE; +diphenhydrAMINE 25 MG TAB (BENADRYL) CANCER CENTER PO ONE; +diphenhydrAMINE 25 MG TAB (BENADRYL) CANCER CENTER PO SCH
[2017-01-16 10:00] LABS: BASOPHILS % (AUTO) 0 % (0-10); EOSINOPHILS # (AUTO) 0.1 10^3/uL (0.0-0.3); EOSINOPHILS % (AUTO) 2 % (0-10); LYMPHOCYTES # (AUTO) 0.5 X 10^3 (1.0-4.0); LYMPHOCYTES % (AUTO) 10 % (12-44); MEAN CORPUSCULAR HEMOGLOBIN 32 PG (25-34); MEAN CORPUSCULAR HGB CONC 35 G/DL (32-36); MEAN CORPUSCULAR VOLUME 92 FL (80-99); MEAN PLATELET VOLUME 11.2 FL (7.4-10.4); MONOCYTES # (AUTO) 0.6 X 10^3 (0.0-1.0); MONOCYTES % (AUTO) 11 % (0-12); NEUTROPHILS % (AUTO) 77 % (42-75); PLATELET COUNT 199 10^3/uL (130-400); RED BLOOD COUNT 4.56 10^6/uL (4.35-5.85); WHITE BLOOD COUNT 5.2 10^3/uL (4.3-11.0)
[2017-01-16] MEDS ORDERED: ACETAMINOPHEN 325 MG TAB (TYLENOL) CANCER CTR ONE (10:08)
[2017-01-16 10:23] LABS: ALANINE AMINOTRANSFERASE 28 U/L (0-55); ALBUMIN 3.8 GM/DL (3.2-4.5); ANION GAP 9 MMOL/L (5-14); ASPARTATE AMINO TRANSFERASE 25 U/L (5-34); BILIRUBIN,TOTAL 0.3 MG/DL (0.1-1.0); BLOOD UREA NITROGEN 21 MG/DL (7-18); BUN/CREATININE RATIO 25; CALCIUM 8.7 MG/DL (8.5-10.1); CARBON DIOXIDE 22 MMOL/L (21-32); CHLORIDE 110 MMOL/L (98-107); CREATININE SERUM 0.85 MG/DL (0.60-1.30); GFR ESTIMATED > 60; GLUCOSE 120 MG/DL (70-105); LACTATE DEHYDROGENASE 269 U/L (125-220); POTASSIUM 4.2 MMOL/L (3.6-5.0); SODIUM 141 MMOL/L (135-145); TOTAL PROTEIN 6.3 GM/DL (6.4-8.2); URIC ACID 5.6 MG/DL (2.6-7.2)
== END 2017-01-16 15:53 | disposition home or self-care (01) ==
LOC: ONC 14:53
PROVIDERS: ATTEND Internal Medicine Hematology & Oncology
DX: Z51.11 Encounter for antineoplastic chemotherapy (principal); C91.10 Chronic lymphocytic leukemia of B-cell type not having achieved remission; K21.9 Gastro-esophageal reflux disease without esophagitis; R10.33 Periumbilical pain; Z79.899 Other long term (current) drug therapy
CPT/HCPCS: 36415; 80053; 83615; 83735; 84550; 85025; 96375; 96409; 96411; 96413; 96415

== ENCOUNTER 2017-01-17 13:57 | Outpatient (RCR) | payer MEDICARE ==
[~2017-01-17 13:57] MED LIST changes: -ACETAMINOPHEN 325 MG TAB (TYLENOL) CANCER CTR ONE; +ACETAMINOPHEN 325 MG TAB (TYLENOL) CANCER CTR PO SCH; -diphenhydrAMINE 25 MG TAB (BENADRYL) CANCER CENTER PO ONE; -diphenhydrAMINE 50 MG/ML INJ (CANCER CENTER) IV PRN
== END 2017-02-08 14:42 | disposition home or self-care (01) ==
LOC: ONC 13:57
PROVIDERS: ATTEND Internal Medicine Hematology & Oncology
DX: Z51.11 Encounter for antineoplastic chemotherapy (principal); C91.10 Chronic lymphocytic leukemia of B-cell type not having achieved remission; K21.9 Gastro-esophageal reflux disease without esophagitis; Z79.899 Other long term (current) drug therapy
CPT/HCPCS: 36415; 96375; 96409; 96413

== ENCOUNTER → 2017-02-14 | Outpatient (CLI) | payer MEDICARE ==
[~2017-02-14] MED LIST changes: -ACETAMINOPHEN 325 MG TAB (TYLENOL) CANCER CTR PO SCH; +BARIUM SUSPENSION 2.1% (VANILLA SILQ) 450 ML PO ONE; -BENDAMUSTINE HCL 140 MG in NS (IVPB) CANCER CENTER 50 ML IV SCH; +CATHETER FLUSH 10 ML SYR IV PRN; +IOHEXOL 350 MG/ML 100 ML (OMNIPAQUE 350) VIAL IV ONE; +NS 100 ML (IVPB) BAG IV ONE; -NS IV 1000 ML (CANCER CTR) IV SCH; -ONDANSETRON 16 MG, DEXAMETHASONE 10 MG/NS 50 ML IVPB IV SCH; -diphenhydrAMINE 25 MG TAB (BENADRYL) CANCER CENTER PO SCH; -riTUXimab 1,000 MG in NS (IVPB) CANCER CENTER 233 ML IV SCH
--- NOTE | 2017-02-14 20:29 | Diagnostic Imaging Report ---
CT neck, chest, abdomen, and pelvis performed with intravenous contrast. INDICATION: Leukemia. 100 mL of Omnipaque-350 is administered intravenously. COMPARISON: 11/15/2016. FINDINGS: CT neck: There are multiple minimally enlarged lymph nodes seen in the cervical chain bilaterally up to 9 mm in short axis within the level IV station on the left side and similarly up to 9 mm in level IV on the right as well. When compared to PET/CT of 11/15/2016, there is significant improvement with numerous previously seen significant alexa enlargement demonstrating resolution at this time. Most of the remaining lymph nodes are not enlarged at this point. Vascular enhancement in the jugular veins and carotid arteries appears unremarkable. There is opacification in the anterior and mid right ethmoidal air cells which is unchanged from the previous exam. The mucosal pharyngeal space appears symmetric. The osseous structures demonstrate degenerative changes in the cervical spine. CT chest: The previously enlarged lymph nodes in the axilla on both sides demonstrate significant improvement with normal-sized axillary nodes seen at this time. There is no significantly enlarged mediastinal or hilar lymph node. The heart is normal. No pericardial or pleural effusion. The thoracic aorta is normal in caliber. The heart size is normal. The lungs demonstrate no significant consolidation or mass. Minimal dependent atelectasis in the lower lobes is noted. The osseous structures appear grossly unremarkable with healed sternotomy seen. CT abdomen and pelvis: The liver, the pancreas, and the adrenal glands appear unremarkable. Cholecystectomy clips are seen. The spleen measures 14.1 x 4.7 cm in maximum axial dimensions, decreased in size when compared to prior measurements of 18 x 6.8 cm. The kidneys have symmetric enhancement and contrast excretion. There is a minimally enlarged lower abdominal left paratracheal lymph node. This is significant improvement from previous study which demonstrated multiple significantly enlarged lymph nodes in the para-aortic stations. There are mildly enlarged nodes also in the pelvis including a 9 mm right common iliac node and a 1.1 cm right external iliac node. The left external iliac station demonstrates a 1.2 cm lymph node near the level of the inguinal ligament. No inguinal lymphadenopathy of significance is seen. This is significant improvement compared to previous large pelvic lymphadenopathy. The prostate is mildly enlarged measuring 5.5 cm in transverse dimension. There is a small fat-containing periumbilical hernia. The osseous structures demonstrate mild degenerative changes and scoliotic curvature convex to the left in the lumbar spine. Degenerative changes in the SI joints are seen. IMPRESSION: CT neck: There is significant improvement with remaining minimally enlarged lower cervical chain lymph nodes bilaterally. CT chest: Significant improvement with resolution of previously seen bilateral axillary lymphadenopathy. No significantly enlarged lymph node is seen at this time. CT abdomen and pelvis: 1. Mild splenomegaly, decreased in size compared to the previous exam. 2. Minimally enlarged lower left para-aortic lymph node and minimally enlarged right common iliac and bilateral external iliac lymph nodes, significantly improved compared to the previous exam. Dictated by: Dictated on workstation # [id number]
== END ==
LOC: RAD 12:47
PROVIDERS: ATTEND Internal Medicine Hematology & Oncology
DX: Z51.11 Encounter for antineoplastic chemotherapy (principal); C91.10 Chronic lymphocytic leukemia of B-cell type not having achieved remission; R16.1 Splenomegaly, not elsewhere classified
CPT/HCPCS: 70491; 71260; 74176

== ENCOUNTER → 2017-05-03 | Outpatient (CLI) | payer MEDICARE ==
[~2017-05-03] MED LIST changes: -CATHETER FLUSH 10 ML SYR IV PRN; -NS 100 ML (IVPB) BAG IV ONE; +NS 250 ML (IVPB) BAG IV ONE
--- NOTE | 2017-05-03 10:10 | Diagnostic Imaging Report ---
INDICATION: Chronic lymphocytic leukemia. TECHNIQUE: Axial imaging through the neck, chest, abdomen and pelvis was performed after the administration of intravenous contrast. COMPARISON: Comparison is made with prior CT from 02/14/2017. FINDINGS: CT NECK: The visualized intracranial structures are unremarkable. Opacification of right ethmoid air cells is again seen. Bilateral globes and orbits are unremarkable. Posterior nasopharynx, oropharynx and larynx are unremarkable. No definite thyroid mass is detected. Bilateral submandibular glands and bilateral parotid glands appear to be symmetric. There continues to be reduction in size of multiple lymph nodes. Tiny submandibular nodes have decreased in size. A left jugulodigastric node now measures 5 mm short axis compared with 8 mm. A lower posterior cervical node has significantly reduced in size measuring 6 mm short axis compared with 9 mm on prior. No new cervical lymphadenopathy is seen. IMPRESSION: Improved appearance to the neck with reduction in size of multiple cervical lymph nodes when compared with prior exam from 02/14/2017. CT CHEST: No axillary lymphadenopathy is seen. Small axillary lymph nodes on the left on previous study continue to decrease in size. There are changes of median sternotomy. No hilar or mediastinal lymphadenopathy is detected. The heart is enlarged. There is no pericardial or pleural fluid identified. Lungs appear clear apart from minimal linear scarring or atelectasis in the right lower lobe. No parenchymal nodules or masses are seen. CT ABDOMEN AND PELVIS: No discrete liver mass is identified. The gallbladder is surgically absent. The pancreas is unremarkable. Spleen measurement is slightly increased when compared with prior at 15.2 cm compared with 14.1 cm. No adrenal mass is identified. The kidneys are unremarkable. The aorta is non-aneurysmal. A left para-aortic lymph node previously measures 10 mm short axis compared to 11 mm. There are several other tiny left para-aortic nodes present. A right common iliac chain node measures 9 mm compared with 9 mm on prior. Right external iliac node is decreased in size at 10 mm compared with 12 mm. The left external iliac node is 10 mm compared with 12 mm. No inguinal lymphadenopathy is seen. Prostate gland appears stable. The bladder is decompressed and appears to be diffusely thickwalled which may be owing to incomplete distention. The bowel loops are normal caliber. There is no ascites. IMPRESSION: Overall decrease in size of multiple marker lymph nodes within the chest, abdomen and pelvis when compared with prior CT from 02/14/2017. The spleen is measuring slightly larger in the AP plane but is similar in size, cephalocaudal plane. No other significant abnormality is detected. Dictated by: Dictated on workstation # [id number]
== END ==
LOC: RAD 07:49
PROVIDERS: ATTEND Internal Medicine Hematology & Oncology
DX: C91.10 Chronic lymphocytic leukemia of B-cell type not having achieved remission (principal)
CPT/HCPCS: 70491; 71260; 74176

== ENCOUNTER 2017-05-09 14:29 | Outpatient (RCR) | payer MEDICARE ==
[2017-02-13 13:35] LABS: BASOPHILS % (AUTO) 0 % (0-10); EOSINOPHILS # (AUTO) 0.1 10^3/uL (0.0-0.3); EOSINOPHILS % (AUTO) 3 % (0-10); HEMATOCRIT 43 % (40-54); HEMOGLOBIN 14.9 G/DL (13.3-17.7); LYMPHOCYTES # (AUTO) 0.4 X 10^3 (1.0-4.0); LYMPHOCYTES % (AUTO) 10 % (12-44); MEAN CORPUSCULAR HEMOGLOBIN 32 PG (25-34); MEAN CORPUSCULAR HGB CONC 35 G/DL (32-36); MEAN CORPUSCULAR VOLUME 92 FL (80-99); MEAN PLATELET VOLUME 11.8 FL (7.4-10.4); MONOCYTES # (AUTO) 0.5 X 10^3 (0.0-1.0); MONOCYTES % (AUTO) 10 % (0-12); NEUTROPHILS # (AUTO) 3.5 X 10^3 (1.8-7.8); NEUTROPHILS % (AUTO) 77 % (42-75); PLATELET COUNT 199 10^3/uL (130-400); RED BLOOD COUNT 4.69 10^6/uL (4.35-5.85); RED CELL DISTRIBUTION WIDTH 13.6 % (10.0-14.5); WHITE BLOOD COUNT 4.5 10^3/uL (4.3-11.0)
[2017-02-13 13:51] LABS: ALANINE AMINOTRANSFERASE 73 U/L (0-55); ALBUMIN 3.9 GM/DL (3.2-4.5); ALKALINE PHOSPHATASE 111 U/L (40-136); BILIRUBIN,TOTAL 0.3 MG/DL (0.1-1.0); BUN/CREATININE RATIO 17; CALCIUM 9.2 MG/DL (8.5-10.1); CARBON DIOXIDE 25 MMOL/L (21-32); CHLORIDE 107 MMOL/L (98-107); CREATININE SERUM 0.84 MG/DL (0.60-1.30); GFR ESTIMATED > 60; GLUCOSE 126 MG/DL (70-105); MAGNESIUM 2.5 MG/DL (1.8-2.4); SODIUM 141 MMOL/L (135-145); TOTAL PROTEIN 7.6 GM/DL (6.4-8.2)
[2017-02-13 13:56] LABS: POTASSIUM 4.8 MMOL/L (3.6-5.0)
[2017-03-15 13:51] LABS: BASOPHILS % (AUTO) 0 % (0-10); EOSINOPHILS # (AUTO) 0.1 10^3/uL (0.0-0.3); EOSINOPHILS % (AUTO) 2 % (0-10); HEMATOCRIT 42 % (40-54); HEMOGLOBIN 14.8 G/DL (13.3-17.7); LYMPHOCYTES # (AUTO) 0.5 X 10^3 (1.0-4.0); LYMPHOCYTES % (AUTO) 10 % (12-44); MEAN CORPUSCULAR HEMOGLOBIN 32 PG (25-34); MEAN CORPUSCULAR HGB CONC 35 G/DL (32-36); MEAN CORPUSCULAR VOLUME 91 FL (80-99); MONOCYTES # (AUTO) 0.4 X 10^3 (0.0-1.0); MONOCYTES % (AUTO) 9 % (0-12); NEUTROPHILS # (AUTO) 3.6 X 10^3 (1.8-7.8); NEUTROPHILS % (AUTO) 79 % (42-75); PLATELET COUNT 197 10^3/uL (130-400); RED BLOOD COUNT 4.65 10^6/uL (4.35-5.85); WHITE BLOOD COUNT 4.6 10^3/uL (4.3-11.0)
[2017-03-15 14:09] LABS: ALANINE AMINOTRANSFERASE 35 U/L (0-55); ALBUMIN 3.8 GM/DL (3.2-4.5); ALKALINE PHOSPHATASE 96 U/L (40-136); BILIRUBIN,TOTAL 0.3 MG/DL (0.1-1.0); BUN/CREATININE RATIO 17; CALCIUM 8.9 MG/DL (8.5-10.1); CARBON DIOXIDE 25 MMOL/L (21-32); CHLORIDE 106 MMOL/L (98-107); CREATININE SERUM 0.88 MG/DL (0.60-1.30); GFR ESTIMATED > 60; GLUCOSE 139 MG/DL (70-105); MAGNESIUM 1.9 MG/DL (1.8-2.4); POTASSIUM 4.1 MMOL/L (3.6-5.0); SODIUM 141 MMOL/L (135-145); TOTAL PROTEIN 6.5 GM/DL (6.4-8.2)
[2017-04-11 14:05] LABS: BASOPHILS % (AUTO) 0 % (0-10); EOSINOPHILS # (AUTO) 0.1 10^3/uL (0.0-0.3); EOSINOPHILS % (AUTO) 2 % (0-10); HEMATOCRIT 42 % (40-54); HEMOGLOBIN 14.9 G/DL (13.3-17.7); LYMPHOCYTES # (AUTO) 0.4 X 10^3 (1.0-4.0); LYMPHOCYTES % (AUTO) 11 % (12-44); MEAN CORPUSCULAR HEMOGLOBIN 32 PG (25-34); MEAN CORPUSCULAR HGB CONC 35 G/DL (32-36); MEAN CORPUSCULAR VOLUME 91 FL (80-99); MEAN PLATELET VOLUME 10.9 FL (7.4-10.4); MONOCYTES # (AUTO) 0.3 X 10^3 (0.0-1.0); MONOCYTES % (AUTO) 10 % (0-12); NEUTROPHILS # (AUTO) 2.7 X 10^3 (1.8-7.8); NEUTROPHILS % (AUTO) 77 % (42-75); PLATELET COUNT 198 10^3/uL (130-400); RED BLOOD COUNT 4.63 10^6/uL (4.35-5.85); WHITE BLOOD COUNT 3.5 10^3/uL (4.3-11.0)
[2017-04-11 14:22] LABS: ALANINE AMINOTRANSFERASE 37 U/L (0-55); ALBUMIN 3.9 GM/DL (3.2-4.5); ALKALINE PHOSPHATASE 95 U/L (40-136); BILIRUBIN,TOTAL 0.4 MG/DL (0.1-1.0); BUN/CREATININE RATIO 15; CARBON DIOXIDE 24 MMOL/L (21-32); CHLORIDE 108 MMOL/L (98-107); CREATININE SERUM 0.89 MG/DL (0.60-1.30); GFR ESTIMATED > 60; GLUCOSE 119 MG/DL (70-105); POTASSIUM 3.8 MMOL/L (3.6-5.0); SODIUM 143 MMOL/L (135-145); TOTAL PROTEIN 6.5 GM/DL (6.4-8.2)
[~2017-05-09] VITALS: Ht 182.9 cm; Wt 102.1 kg
[~2017-05-09 14:29] MED LIST changes: +ACETAMINOPHEN 325 MG TAB (TYLENOL) CANCER CTR PO SCH; -BARIUM SUSPENSION 2.1% (VANILLA SILQ) 450 ML PO ONE; +BENDAMUSTINE HCL 140 MG in NS (IVPB) CANCER CENTER 50 ML IV SCH; -IOHEXOL 350 MG/ML 100 ML (OMNIPAQUE 350) VIAL IV ONE; -NS 250 ML (IVPB) BAG IV ONE; +NS IV 1000 ML (CANCER CTR) IV SCH; +ONDANSETRON 16 MG, DEXAMETHASONE 10 MG/NS 50 ML IVPB IV SCH; +ONDANSETRON MDV (CANCER CENTER 16 MG, DEXAMETHASONE PF INJ (CANCER C 10 MG in D5W 50 ML... IV SCH; +diphenhydrAMINE 25 MG TAB (BENADRYL) CANCER CENTER PO SCH; +riTUXimab 1,000 MG in NS (IVPB) CANCER CENTER 233 ML IV SCH
[2017-05-09 15:36] LABS: BASOPHILS % (AUTO) 0 % (0-10); EOSINOPHILS # (AUTO) 0.1 10^3/uL (0.0-0.3); EOSINOPHILS % (AUTO) 3 % (0-10); HEMATOCRIT 41 % (40-54); HEMOGLOBIN 14.8 G/DL (13.3-17.7); LYMPHOCYTES # (AUTO) 0.4 X 10^3 (1.0-4.0); LYMPHOCYTES % (AUTO) 9 % (12-44); MEAN CORPUSCULAR HEMOGLOBIN 33 PG (25-34); MEAN CORPUSCULAR HGB CONC 36 G/DL (32-36); MEAN CORPUSCULAR VOLUME 90 FL (80-99); MEAN PLATELET VOLUME 11.2 FL (7.4-10.4); MONOCYTES # (AUTO) 0.4 X 10^3 (0.0-1.0); MONOCYTES % (AUTO) 8 % (0-12); NEUTROPHILS # (AUTO) 3.6 X 10^3 (1.8-7.8); NEUTROPHILS % (AUTO) 79 % (42-75); PLATELET COUNT 194 10^3/uL (130-400); RED BLOOD COUNT 4.56 10^6/uL (4.35-5.85); RED CELL DISTRIBUTION WIDTH 13.1 % (10.0-14.5); WHITE BLOOD COUNT 4.5 10^3/uL (4.3-11.0)
== END 2017-05-14 | disposition home or self-care (01) ==
LOC: ONC 14:29
PROVIDERS: ATTEND Internal Medicine Hematology & Oncology
DX: Z51.11 Encounter for antineoplastic chemotherapy (principal); C91.10 Chronic lymphocytic leukemia of B-cell type not having achieved remission; K21.9 Gastro-esophageal reflux disease without esophagitis; R16.1 Splenomegaly, not elsewhere classified; Z79.899 Other long term (current) drug therapy
CPT/HCPCS: 36415; 70491; 71260; 74176; 80053; 83615; 83735; 84550; 85025; 96375; 96409; 96411; 96413; 99213

== ENCOUNTER → 2017-06-15 | Outpatient (CLI) | payer MEDICARE ==
[~2017-06-15] MED LIST changes: -ACETAMINOPHEN 325 MG TAB (TYLENOL) CANCER CTR PO SCH; -BENDAMUSTINE HCL 140 MG in NS (IVPB) CANCER CENTER 50 ML IV SCH; -NS IV 1000 ML (CANCER CTR) IV SCH; -ONDANSETRON 16 MG, DEXAMETHASONE 10 MG/NS 50 ML IVPB IV SCH; -ONDANSETRON MDV (CANCER CENTER 16 MG, DEXAMETHASONE PF INJ (CANCER C 10 MG in D5W 50 ML... IV SCH; -diphenhydrAMINE 25 MG TAB (BENADRYL) CANCER CENTER PO SCH; -riTUXimab 1,000 MG in NS (IVPB) CANCER CENTER 233 ML IV SCH
--- NOTE | 2017-06-15 09:04 | Diagnostic Imaging Report ---
PROCEDURE: US abdomen complete. TECHNIQUE: Multiple real-time grayscale images were obtained over the abdomen in various projections. INDICATION: Ongoing abdominal pain. FINDINGS: The liver is normal in size at 17.6 cm. No discrete liver mass is identified. The gallbladder is surgically absent. The extra hepatic bile duct is not well visualized. No definite biliary ductal dilatation is seen. Pancreas was poorly visualized. Visualized mid and distal aorta are nonaneurysmal. The proximal aorta is nonvisualized. Spleen is normal in size. The right and left kidneys are unremarkable. There is no ascites. IMPRESSION: Status post cholecystectomy. No significant abnormality is detected. Dictated by: Dictated on workstation # [id number]
== END ==
LOC: RAD 07:43
PROVIDERS: ATTEND Family Medicine
DX: R10.9 Unspecified abdominal pain (principal); Z90.49 Acquired absence of other specified parts of digestive tract
CPT/HCPCS: 76700

== ENCOUNTER 2017-07-05 15:17 | Outpatient (RCR) | payer MEDICARE | END 2017-09-27 14:38 | disposition home or self-care (01) | LOC: ONC 15:17 | PROVIDERS: ATTEND Internal Medicine Hematology & Oncology | DX: C91.10 Chronic lymphocytic leukemia of B-cell type not having achieved remission (principal) | CPT/HCPCS: 99213 ==

== ENCOUNTER 2017-09-27 14:40 | Outpatient (RCR) | payer MEDICARE | END 2017-10-17 | disposition home or self-care (01) | LOC: ONC 14:40 | PROVIDERS: ATTEND Internal Medicine Hematology & Oncology | DX: C91.10 Chronic lymphocytic leukemia of B-cell type not having achieved remission (principal) | CPT/HCPCS: 99213 ==

== ENCOUNTER 2017-12-27 15:02 | Outpatient (RCR) | payer MEDICARE | END 2018-03-27 | disposition home or self-care (01) | LOC: ONC 15:02 | PROVIDERS: ATTEND Internal Medicine Hematology & Oncology | DX: C91.10 Chronic lymphocytic leukemia of B-cell type not having achieved remission (principal); Z79.899 Other long term (current) drug therapy | CPT/HCPCS: 99213 ==

== ENCOUNTER → 2018-02-22 | Outpatient (CLI) | payer MEDICARE ==
--- NOTE | 2018-02-22 15:45 | Diagnostic Imaging Report ---
INDICATION: Foot pain. Plantar fasciitis. COMPARISON: None. FINDINGS: Three views of the left foot demonstrate no acute fracture or dislocation. There are no focal osseous lesions. There is no soft tissue swelling. Joint spaces are well maintained. No radiopaque foreign bodies are seen. IMPRESSION: No acute fractures or dislocations of the left foot. Dictated by: Dictated on workstation # [id number]
== END ==
LOC: RAD 14:49
PROVIDERS: ATTEND Family Medicine
DX: M72.2 Plantar fascial fibromatosis (principal)
CPT/HCPCS: 73630

== ENCOUNTER 2018-04-05 14:40 | Outpatient (RCR) | payer MEDICARE ==
[2018-05-08] MEDS ORDERED: ALPR1TAB2 PO (09:36)
[2018-05-08] MEDS ORDERED: ACHD5005 PO (11:37)
== END 2018-07-04 | disposition home or self-care (01) ==
LOC: ONC 14:40
PROVIDERS: ATTEND Internal Medicine Hematology & Oncology
DX: C91.10 Chronic lymphocytic leukemia of B-cell type not having achieved remission (principal); Z79.899 Other long term (current) drug therapy
CPT/HCPCS: 99213

== ENCOUNTER → 2018-05-07 | Outpatient (CLI) | payer MEDICARE | END | disposition home or self-care (01) | LOC: PREOP 15:05 | PROVIDERS: ATTEND Surgery | DX: Z01.818 Encounter for other preprocedural examination (principal) ==

== ENCOUNTER → 2018-05-07 | Outpatient (CLI) | payer MEDICARE ==
[~2018-05-07] MED LIST changes: +ACHD5005 PO; +ALPR1TAB2 PO; +IOHEXOL 350 MG/ML 100 ML (OMNIPAQUE 350) VIAL IV ONE; +NS 100 ML (IVPB) BAG IV ONE; +RECEIVED CONTRAST (Hold Metformin) IV SCH
[2018-05-07 12:57] LABS: BUN/CREATININE RATIO 20; CREATININE SERUM 0.93 MG/DL (0.60-1.30); GFR ESTIMATED > 60
--- NOTE | 2018-05-07 13:56 | Diagnostic Imaging Report ---
PROCEDURE: CT abdomen with contrast only. TECHNIQUE: Multiple contiguous axial images were obtained through the abdomen after the administration of intravenous contrast. INDICATION: Umbilical hernia and pain. COMPARISON: Correlation is made with prior CT from 05/03/2017. FINDINGS: There is some linear scarring or atelectasis in the right lower lobe. Otherwise the lung bases are clear. No discrete liver mass is identified. The gallbladder is surgically absent. No biliary duct dilatation is seen. The pancreas and spleen are unremarkable. No adrenal mass is identified. Kidneys are unremarkable. The aorta is non-aneurysmal. There is a fat-containing umbilical hernia. Abdominal wall defect is approximately 2.5 cm. There is some mild stranding within the herniated fat. Small amount of fluid is identified within the hernia sac. No small or large bowel loops are seen extending through the abdominal wall defect. No abdominal obstruction is seen. IMPRESSION: Fat-containing umbilical hernia. There is some mild inflammatory stranding within the herniated omental fat. No bowel loop herniation or evidence of intestinal obstruction is identified. Dictated by: Dictated on workstation # [id number]
[2018-05-07 14:13] LABS: HEMOGLOBIN 14.9 G/DL (13.3-17.7); WHITE BLOOD COUNT 5.6 10^3/uL (4.3-11.0)
[2018-05-07 14:30] LABS: BUN/CREATININE RATIO 19; CALCIUM 8.8 MG/DL (8.5-10.1); CARBON DIOXIDE 25 MMOL/L (21-32); CHLORIDE 106 MMOL/L (98-107); CREATININE SERUM 0.94 MG/DL (0.60-1.30); GFR ESTIMATED > 60; GLUCOSE 83 MG/DL (70-105); POTASSIUM 4.6 MMOL/L (3.6-5.0); SODIUM 138 MMOL/L (135-145)
== END ==
LOC: RAD 12:29
PROVIDERS: ATTEND Surgery
DX: K42.9 Umbilical hernia without obstruction or gangrene (principal); Z90.49 Acquired absence of other specified parts of digestive tract
CPT/HCPCS: 36415; 74160; 80048; 82565; 84520; 85027

== ENCOUNTER 2018-05-08 08:20 | Day surgery (SDC) | payer MEDICARE ==
[~2018-05-08] VITALS: Ht 182.9 cm; Wt 100.8 kg
[~2018-05-08 08:20] MED LIST changes: -ACHD5005 PO; -ALPR1TAB2 PO; -IOHEXOL 350 MG/ML 100 ML (OMNIPAQUE 350) VIAL IV ONE; -NS 100 ML (IVPB) BAG IV ONE; -RECEIVED CONTRAST (Hold Metformin) IV SCH
[2018-05-08] MEDS ORDERED: CATHETER FLUSH 10 ML SYR IV PRN (08:45)
[2018-05-08] MEDS ORDERED: ceFAZolin 2 GM IV Premixed 50 ML IV ONE (08:45)
--- NOTE | 2018-05-08 08:45 | Progress Note-Pre Operative ---
Pre-Operative Progress Note H&P Reviewed The H&P was reviewed, patient examined and no changes noted. Date Seen by Provider: May 07, 2018 Time Seen by Provider: 12:50 Date H&P Reviewed: May 08, 2018 Time H&P Reviewed: 08:42 Pre-Operative Diagnosis: Incarcerated ventral hernia ROBERT DAWSON MD May 08, 2018 08:44
[2018-05-08] MEDS: LACTATED RINGERS 1,000 ML IV PRN ×3 (08:55→11:50)
[2018-05-08] MEDS ORDERED: ONDANSETRON 4 MG/2 ML (SDV) Z0FRAN ONE (09:01)
[2018-05-08] MEDS ORDERED: proPOfol 200 MG/20 ML (DIPRIVAN) VIAL IV ONE (09:01)
[2018-05-08] MEDS ORDERED: LIDOCAINE PF 2% 5 ML (XYLOCAINE) VIAL ONE (09:01)
[2018-05-08] MEDS ORDERED: MIDAZOLAM 2 MG/2 ML (VERSED) VIAL ONE (09:01)
[2018-05-08] MEDS ORDERED: ROCURONIUM 10 MG/ML 5 ML SYRINGE IV ONE ×2 (09:01→10:21)
[2018-05-08] MEDS ORDERED: fentaNYL INJECTION 100 MCG/2 ML AMP ONE ×3 (09:01→13:35)
[2018-05-08] MEDS ORDERED: DEXAMETHASONE 10 MG/ML (DECADRON) 1 ML VIAL ONE (09:02)
[2018-05-08] MEDS ORDERED: SEVOFLURANE (ULTANE) 15 ML INHAL SOLN ONE ×10 (09:02→11:54)
[2018-05-08] MEDS ORDERED: LACTATED RINGERS 1,000 ML IV PRN (09:04)
[2018-05-08] MEDS ORDERED: BUP/EPI 0.5% 1:200,000 (SENSORCAINE) 30 ML VIAL ONE (09:07)
[2018-05-08 09:12] VITALS: BP 154/72
[2018-05-08] MEDS ORDERED: ALPR1TAB2 PO (09:36)
--- NOTE | 2018-05-08 09:36 | NUR ---
PATIENT STATES TAKES XANAX PRN FOR SLEEPING ONCE IN A WHILE AND NO OTHER MEDICATIONS.
[2018-05-08] MEDS ORDERED: GLYCOPYRROLATE 0.2 MG/ML (ROBINUL) 2 ML VIAL ONE ×2 (10:06→11:11)
[2018-05-08] MEDS ORDERED: ROPIVACAINE 5MG/ML 30ML VIAL ONE (11:02)
[2018-05-08] MEDS ORDERED: NEOSTIGMINE 1 MG/ML 5 ML SYRINGE ONE (11:11)
--- NOTE | 2018-05-08 11:36 | Operative Report ---
Operative Report Date of Procedure/Surgery May 08, 2018 Surgeon (s) ROBERT DAWSON MD Metal Model Builder (s): N/A Post-Operative Diagnosis Incarcerated ventral hernia containing epiploic fat Procedure Performed Robotic assisted repair with biologic mesh Description of Procedure Anesthesia Type: General Estimated blood loss (mL): Minimal Specimen(s) collected/removed Hernia contents Description of the Procedure Indication for the procedure: This gentleman presented with an incarcerated ventral hernia, in relation to his umbilicus. He was offered repair using minimally invasive technique with robotic assistance and reinforcement with a biologic mesh. This was relevant due to the inflamed nature of the overlying skin due to incarceration. CT scan ruled out granulated bowel contained within the hernia. Informed consent was obtained after reviewing the operative details and complications of hematoma, infection of the mesh and recurrence of the hernia. Description of the procedure: He was placed supine on the operating table and general anesthesia induced. 2 g of Ancef were administered intravenously as prophylaxis against wound infection. Sequential compression devices were placed around his legs, to minimize the risk of venous thrombosis. The right side of his body was lifted up on a roll and his pressure areas were padded and protected; abdomen was prepared and draped in the usual sterile manner. Pneumoperitoneum was established using a Veress needle introduced over the right subcostal margin, along the mid clavicular line. Intra-abdominal pressure was initially maintained at 17 mmHg, using carbon dioxide insufflation. A 12 mm trocar was placed and anatomy visualized using the high definition, 3-dimensional laparoscope, associated with da Benedicto system. Epiploic fat connected to the transverse colon was entrapped within the hernia. Under direct view, I placed another 12 mm trocar over the right side of the abdomen, along the mid axillary line, followed by an 8 mm trocar over the right lower quadrant. The robotic system was then docked in place. The entrapped epiploic fat was retrieved and the most distal portion was found to be necrotic. The associated transverse colon was examined clearly and found to be intact without any injury or disruption of the bowel wall. Hernia contents including the necrotic epiploic fat were placed in an Endo Catch bag and removed at the end of the operation The fascial defect measured 2 cm in diameter. It was then approximated using a 0, absorbable V- LOC suture with robotic assistance. During this maneuver, pneumoperitoneum was decreased to 11 mm to minimize tension on the suture line. An absorbable mesh (PHASIX), measuring 15 cm in diameter was chosen for reinforcement. A Vicryl suture was placed at the center and brought out of the abdominal wall under direct laparoscopic view using a Ori Blancas device. Once it was held up against the abdominal wall, the edges were secured using 20 , absorbable V LOC sutures with the robotic assistance. Hemostasis was satisfactory and the mesh appeared to lie without any laxity or tension. The hernia contents contained within the Endo Catch bag were removed via the right subcostal scar. The fascia over the 12 mm incisions was closed using #1 Vicryl and skin incisions were closed using 4-0 Vicryl, in a subcuticular fashion. 0.5 percent Marcaine with epinephrine was infiltrated along the incisions, both preemptively and at the conclusion of the operation. Our LYE BATH OPERATOR was planning to administer a TAP block to achieve postoperative analgesia. He tolerated the procedure well, was extubated in the operating room and taken to the recovery room in a stable condition. Findings of the Procedure See op report Allergies and Home Medications Allergies Coded Allergies: No Allergy Information Available (Unverified , 05/08/18) Home Medications Alprazolam 1 Mg Tablet, 1 MG PO TID, (Reported) Patient Home Medication List Home Medication List Reviewed: Yes ROBERT DAWSON MD May 08, 2018 11:36
[2018-05-08] MEDS ORDERED: ACHD5005 PO (11:37)
--- NOTE | 2018-05-08 11:38 | Discharge Inst-Simple/Standard ---
Discharge Inst-Standard Discharge Medications New, Converted or Re-Newed RX: RX on Chart Patient Instructions/Follow Up Plan of Care/Instructions/FU: Band-Aids off in 48 hours. Binder to stay on during the daytime for 2 weeks. Incentive spirometry. Follow-up in 3 weeks Activity as Tolerated: No Goal: No lifting over 20 pounds Discharge Diet: No Restrictions ROBERT DAWSON MD May 08, 2018 11:38
[2018-05-08] MEDS ORDERED: MEPERIDINE (DEMEROL) INJ 50 MG/ML ONE (12:09)
[2018-05-08] MEDS ORDERED: morphine INJ 10 MG/ML 1ML (SYR OR VIAL) ONE (12:11)
[2018-05-08] MEDS ORDERED: PROMETHAZINE INJ 25 MG/ML (PHENERGAN) AMP IVP ONE (12:15)
[2018-05-08] MEDS ORDERED: HYDROmorphone 2 MG/ML VIAL (DILAUDID) IV ONE (12:15)
[2018-05-08] MEDS ORDERED: morphine INJ 10 MG/ML 1ML (SYR OR VIAL) IVP ONE (12:15)
[2018-05-08] MEDS ORDERED: ONDANSETRON 4 MG/2 ML (SDV) Z0FRAN IVP PRN ×2 (12:15→14:30)
[2018-05-08] MEDS ORDERED: MEPERIDINE (DEMEROL) INJ 50 MG/ML IVP ONE (12:45)
[2018-05-08 13:00] VITALS: BP 151/79
[2018-05-08] MEDS ORDERED: HYDROcodone/APAP 5 MG/325 MG (LORTAB) TAB ONE (13:04)
[2018-05-08] MEDS ORDERED: HYDROcodone/APAP 5 MG/325 MG (LORTAB) TAB PO ONE (13:15)
[2018-05-08 13:30] VITALS: BP 154/94
--- NOTE | 2018-05-08 13:36 | NUR ---
THIS RN PHONED DR. DAWSON AND INFORMED HAVE GIVEN 2 HYDRO TABLETS AND PATIENT REPOSITIONED AND PAIN IS 10/10. GAVE ORDER TO GIVE FENTANYL 50MCG ONCE.
[2018-05-08] MEDS ORDERED: fentaNYL INJECTION 100 MCG/2 ML AMP IVP ONE (13:45)
[2018-05-08 14:00] VITALS: BP 150/84
--- NOTE | 2018-05-08 14:25 | NUR ---
PATIENT STILL HAVING PAIN OF 8/10 WHEN LAYING STILL AND WITH SLIGHT BENDING OF RIGHT LEG STATES PAIN OF 16. THIS RN PHONED DR. DAWSON AND INFORMED HYDROCODONE ON BOARD AND FENTANYL 50MCG GIVEN WITH NO PAIN RELIEF. DR. DAWSON GAVE TELEPHONE ORDER TO ADMIT TO 4TH FLOOR OBSERVATION WITH FULL LIQUID DIET, FENTANYL 50-100 MCG Q2H PRN, ZOFRAN 4MG Q6H PRN, PERCOCET 5/325 Q4H PRN, IS, STRAIGHT CATH IF NEEDED FOR DISCOMFORT AND CONTINUE HOME XANAX MEDICATION.
[2018-05-08] MEDS ORDERED: fentaNYL INJECTION 100 MCG/2 ML AMP IVP PRN (14:30)
--- NOTE | 2018-05-08 14:55 | NUR ---
PATIENT TO ROOM VIA CART. REPORT RECEIVED FROM ALEKSANDER STEPHEN.
--- NOTE | 2018-05-08 14:55 | NUR ---
PATIENT TO ROOM AND TRANSFERRED TO BED AT THIS TIME AND BEDSIDE REPORT GIVEN TO ALEKSANDER ALMARAZ.
[2018-05-08] MEDS ORDERED: ALPRAZolam 1 MG (XANAX) TAB ONE (15:58)
[2018-05-08] MEDS ORDERED: FLU QUADRIvalent (5+ YOA) 2018-2019 (AFLURIA) 0.5 ML IM ONE (16:30)
[2018-05-08] MEDS: oxyCODONE/APAP 5/325MG (PERCOCET 5) TABLET PO PRN ×2 (17:36→21:42)
[2018-05-08 19:39] VITALS: BP 152/69
[2018-05-08] MEDS ORDERED: ALPRAZolam 1 MG (XANAX) TAB PO PRN (21:00)
[2018-05-09 00:15] VITALS: BP 120/56
[2018-05-09] MEDS: oxyCODONE/APAP 5/325MG (PERCOCET 5) TABLET PO PRN ×3 (01:56→13:32)
[2018-05-09 04:00] VITALS: BP 116/63
[2018-05-09 08:00] VITALS: BP 136/61
[2018-05-09] MEDS ORDERED: KETOROLAC 15 MG/ML VIAL IVP NR (08:15)
[2018-05-09 12:00] VITALS: BP 131/60
[2018-05-09 14:05] VITALS: BP 131/60
== END 2018-05-09 14:05 | disposition home or self-care (01) ==
LOC: SDC 08:20 → 4TH 15:08 → SDC 05-09 14:05
PROVIDERS: ATTEND Surgery
DX: K43.6 Other and unspecified ventral hernia with obstruction, without gangrene (principal); C91.10 Chronic lymphocytic leukemia of B-cell type not having achieved remission; Z92.21 Personal history of antineoplastic chemotherapy; Z95.1 Presence of aortocoronary bypass graft
CPT/HCPCS: 87081; 94664

== ENCOUNTER 2018-05-10 18:18 | Emergency (ER) | payer MEDICARE ==
[~2018-05-10] VITALS: Ht 188 cm; Wt 99.8 kg
[~2018-05-10 18:18] MED LIST changes: +ACHD5005 PO; +ALPR1TAB2 PO
--- OUTSIDE RECORDS SUMMARY | 2018-05-10 18:27 | XMS REPORT | Clinical Summary ---
Author Author [facility] Organization [facility] Address Unknown Phone Unavailable Care Team Providers Care Safe And Vault Mechanic Name Role Phone Rei Ceron PA-C Unavailable Emerita Kellogg RN 2 Unavailable Felton Del Rio DO PCP Source Comments Some departments are not documenting in the electronic medical record. If you do not see the information that you expected, contact Release of Information in the Health Information Management department at [phone] for further assistance in locating additional records.[facility] Allergies No Known Allergies Medications End Date Status Medication Sig Dispensed Refills Start Date Active IBUPROFEN (MOTRIN PO) Take by 0 mouth as Needed. Active amoxicillin (AMOXIL) 875 Take 875 mg 0 mg tablet by mouth daily. Active NAPROXEN SODIUM (ALEVE Take by 0 PO) mouth as Needed. Active Problems Problem Noted Date Tooth infection 07/07/2014 Family History Medical History Relation Name Comments Cancer Father brain Cancer Maternal Grandfather Cancer Maternal Grandmother Cancer Mother stomach Cancer Paternal Grandfather Relation Name Status Comments Father Maternal Grandfather Maternal Grandmother Mother Paternal Grandfather Social History Date Tobacco Use Types Packs/Day Years Used Never Smoker Smokeless Tobacco: Never Used Alcohol Use Drinks/Week oz/Week Comments Yes 2 Glasses of 1.2 wine Sex Assigned at Date Recorded Not on file Industry Job Start Date Occupation Not on file Not on file Not on file Travel End Travel History Travel Start No recent travel history available. Last Filed Vital Signs Time Taken Vital Sign Reading 05/11/2016 3:13 PM CARE COORDINATOR Blood Pressure 151/69 05/11/2016 3:13 PM CARE COORDINATOR Pulse 86 05/11/2016 3:13 PM CARE COORDINATOR Temperature 36.7 C (98.1 F) 05/11/2016 3:13 PM CARE COORDINATOR Respiratory Rate 18 05/11/2016 3:13 PM CARE COORDINATOR Oxygen Saturation 97% - Inhaled Oxygen - Concentration 05/11/2016 3:13 PM CARE COORDINATOR Weight 101.2 kg (223 lb) 05/11/2016 3:13 PM CARE COORDINATOR Height 185.4 cm (6' 0.99") 05/11/2016 3:13 PM CARE COORDINATOR Body Mass Index 29.43 Plan of Treatment Health Maintenance Due Date Last Done Comments HEPATITIS C SCREENING 1945 PHYSICAL (COMPREHENSIVE) 01/29/1952 EXAM DTAP/TDAP VACCINES (1 - 1963 Tdap) COLORECTAL CANCER 1995 SCREENING SHINGLES RECOMBINANT 1995 VACCINE (1 of 2) PNEUMONIA (PCV13/PPSV23) 2010 VACCINES (1 of 2 - PCV13) INFLUENZA VACCINE 10/18/2017 Results Not on filefrom Last 3 Months Insurance Payer Benefit Subscriber ID Type Phone Address Plan / Group MEDICARE MEDICARE xxxxxxxxxx Medicare PART A AND B [facility] AAR xxxxxxxxxxx PPO Advance Directives Patient has advance care planning documents on file. For more information, please contact: [facility] [address] [place] [address]
--- OUTSIDE RECORDS SUMMARY | 2018-05-10 18:30 | XMS REPORT | CCD ---
Author Author Harriet Salomon Organization Harriet Salomon MD, [facility] Address [address] [place] [address] Phone Care Team Providers Care Social Group Worker Name Role Phone PP Unavailable CCM Unavailable Summary Purpose Interface Exchange Insurance Providers Payer name Policy type / Coverage type Covered democrat ID Effective Begin Date Effective End Date WPS Medicare Part B Medicare Part B [id number] Unknown AARP Medicare Part B [id number] Unknown Family history Father Diagnosis Age At Onset brain cancer Unknown Skin cancer Unknown Mother Diagnosis Age At Onset Cancer Unknown Daughter Diagnosis Age At Onset Celiac disease Unknown Social History Social History Element Codes Description Effective Dates Marital status Unknown Single 12/05/2016 Number of children Unknown 2 12/05/2016 Employment Unknown 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 Unknown Has never used illegal drugs 12/05/2016 Allergies, Adverse Reactions, Alerts Substance Reaction Codes Entered Date Inactivated Date Status * NO KNOWN DRUG ALLERGIES Unknown 12/05/2016 No Inactive Date Active Past Medical History Illness Codes Condition Status Onset Date Resolved Date Umbilical hernia with obstruction, without gangrene ICD-9: 552.1 ICD-10: K42.0 Active 05/07/2018 Unknown Umbilical hernia without obstruction or gangrene ICD-9: 553.1 ICD-10: K42.9 Active 12/05/2016 Unknown 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 Active 04/02/2018 Unknown Pain in left foot ICD- 9: 729.5 ICD-10: M79.672 Active 02/22/2018 Unknown Generalized anxiety disorder ICD-9: 300.00 ICD-10: F41.1 Active 01/02/2018 Unknown Adjustment insomnia ICD-9: 307.41 ICD-10: F51.02 Active 02/01/2018 Unknown Major depressive disorder, single episode, moderate ICD-9: 296.22 ICD-10: F32.1 Active 01/02/2018 Unknown Concussion without loss of consciousness, initial encounter ICD-9: 850.0 ICD-10: S06.0X0A Active 12/21/2017 Unknown Laceration without foreign body of other part of head, initial encounter ICD-9: 873.44 ICD-10: S01.81XA Active 12/21/2017 Unknown Chronic lymphocytic leukemia of B-cell type not having achieved remission ICD-9: 204.10 ICD-10: C91.10 Active 12/05/2016 Unknown Cramp and spasm ICD-9 : 729.82 ICD-10: R25.2 Active 11/22/2017 Unknown Pain in left knee ICD- 9: 719.46 ICD-10: M25.562 Active 05/03/2017 Unknown Pain in right knee ICD -9: 719.46 ICD-10: M25.561 Active 05/03/2017 Unknown Rash and other nonspecific skin eruption ICD-9: 782.1 ICD-10: R21 Active 07/19/2017 Unknown Slow transit constipation ICD-9: 564.01 ICD-10: K59.01 Active 12/05/2016 Unknown Epigastric pain ICD-9 : 789.06 ICD-10: R10.13 Active 06/05/2017 Unknown Decreased libido ICD-9 : 799.81 ICD-10: R68.82 Active 01/10/2017 Unknown Pain in left hip ICD-9 : 719.45 ICD-10: M25.552 Active 05/03/2017 Unknown Pain in right hip ICD- 9: 719.45 ICD-10: M25.551 Active 05/03/2017 Unknown Periumbilical pain ICD -9: 789.05 ICD-10: R10.33 Active 12/05/2016 Unknown Problems Condition Codes Effective Dates Condition Status Umbilical hernia with obstruction, without gangrene ICD-9: 552.1 ICD-10: K42.0 05/07/2018 Active Umbilical hernia without obstruction or gangrene ICD-9: 553.1 ICD-10: K42.9 12/05/2016 Active 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 04/02/2018 Active Pain in left foot ICD- 9: 729.5 ICD-10: M79.672 02/22/2018 Active Generalized anxiety disorder ICD-9: 300.00 ICD-10: F41.1 01/02/2018 Active Adjustment insomnia ICD-9: 307.41 ICD-10: F51.02 02/01/2018 Active Major depressive disorder, single episode, moderate ICD-9: 296.22 ICD-10: F32.1 01/02/2018 Active Concussion without loss of consciousness, initial encounter ICD-9: 850.0 ICD-10: S06.0X0A 12/21/2017 Active Laceration without foreign body of other part of head, initial encounter ICD-9: 873.44 ICD-10: S01.81XA 12/21/2017 Active Chronic lymphocytic leukemia of B-cell type not having achieved remission ICD-9: 204.10 ICD-10: C91.10 12/05/2016 Active Cramp and spasm ICD-9 : 729.82 ICD-10: R25.2 11/22/2017 Active Pain in left knee ICD- 9: 719.46 ICD-10: M25.562 05/03/2017 Active Pain in right knee ICD -9: 719.46 ICD-10: M25.561 05/03/2017 Active Rash and other nonspecific skin eruption ICD-9: 782.1 ICD-10: R21 07/19/2017 Active Slow transit constipation ICD-9: 564.01 ICD-10: K59.01 12/05/2016 Active Epigastric pain ICD-9 : 789.06 ICD-10: R10.13 06/05/2017 Active Decreased libido ICD-9 : 799.81 ICD-10: R68.82 01/10/2017 Active Pain in left hip ICD-9 : 719.45 ICD-10: M25.552 05/03/2017 Active Pain in right hip ICD- 9: 719.45 ICD-10: M25.551 05/03/2017 Active Periumbilical pain ICD -9: 789.05 ICD-10: R10.33 12/05/2016 Active Medications Medication Codes Instructions Start Date Stop Date Status Fill Instructions temazepam 7.5 mg capsule RxNorm: 080649 1 Capsule(s) PO QHS 02/15/2018 Inactive temazepam 7.5 mg capsule RxNorm: 809113 1 Capsule(s) PO QHS 01/16/2018 Inactive Restoril 15 mg capsule RxNorm: 124509 1 Capsule(s) PO daily 01/31/2018 Inactive Restoril 7.5 mg capsule RxNorm: 794949 1 Capsule(s) PO daily 01/07/2018 Inactive Restoril 7.5 mg capsule RxNorm: 466608 1 Capsule(s) PO daily 01/09/2018 Inactive Lexapro 10 mg tablet RxNorm: 603554 1 Tablet(s) PO QHS 201701/31/2018 Inactive Voltaren 1 % topical gel RxNorm: 835130 4 Gram(s) TOP QID as needed 11/22/2017 No Stop Date Active Viagra 100 mg tablet RxNorm: 409837 1 Tablet(s) PO PRN sexual encounter 10/02/2017 No Stop Date Active promethazine 6.25 mg-codeine 10 mg/5 mL syrup RxNorm: 073111 5-10 Milliliter(s) PO Q6 as needed 10/02/2017 12/20/2017 Inactive Keflex 500 mg capsule RxNorm: 606509 1 Capsule(s) PO TID 201707/25/2017 Inactive Pepcid 20 mg tablet RxNorm: 134503 1 Tablet(s) PO BID 201707/18/2017 Inactive Carafate 1 gram tablet RxNorm: 798667 1 Tablet(s) PO QID 201707/04/2017 Inactive Pepcid 20 mg tablet RxNorm: 753327 1 Tablet(s) PO BID 201706/04/2017 Inactive mupirocin 2 % topical cream RxNorm: 455219 1 Application TOP BID 02/27/2017 03/08/2017 Inactive meclizine 25 mg tablet RxNorm: 688800 1 Tablet(s) PO TID as needed nausea 01/27/2017 03/27/2017 Inactive meclizine 25 mg tablet RxNorm: 283416 1 Tablet(s) PO TID as needed nausea 01/27/2017 01/26/2017 Inactive scopolamine 1 mg over 3 days transdermal patch RxNorm: 519851 1 TD Q72H 01/10/2017 02/26/2017 Inactive ibuprofen 200 mg tablet RxNorm: 232429 1 Tablet(s) PO No Start Date Active vitamin E (dl, acetate) oral RxNorm: oral No Start Date Active Viagra 100 mg tablet RxNorm: 921960 1 Tablet(s) PO PRN sexual encounter No Start Date 10/01/2017 Inactive promethazine 6.25 mg-codeine 10 mg/5 mL syrup RxNorm: 489659 5-10 Milliliter(s) PO Q6 as needed No Start Date 10/01/2017 Inactive Medication Administered No Medication Administered data Immunizations No Immunization data Assessments Condition Codes Effective Dates Umbilical hernia with obstruction, without gangrene ICD-10: K42.0 ICD-9: 552.1 05/07/2018 Pain in left foot ICD-10: M79.672 ICD-9: 729.5 04/02/2018 Other specified polyneuropathies ICD-10: G62.89 ICD-9: 356.8 04/02/2018 Generalized anxiety disorder ICD-10: F41.1 ICD-9: 300.00 02/22/2018 Adjustment insomnia ICD-10: F51.02 ICD-9: 307.41 02/01/2018 Major depressive disorder, single episode, moderate ICD-10: F32.1 ICD-9: 296.22 02/01/2018 Laceration without foreign body of other part of head, initial encounter ICD-10: S01.81XA ICD-9: 873.44 12/21/2017 Concussion without loss of consciousness, initial encounter ICD-10: S06.0X0A ICD-9: 850.0 12/21/2017 Umbilical hernia without obstruction or gangrene ICD-10: K42.9 ICD-9: 553.1 11/22/2017 Chronic lymphocytic leukemia of B-cell type not having achieved remission ICD-10: C91.10 ICD-9: 204.10 11/22/2017 Cramp and spasm ICD-10: R25.2 ICD-9: 729.82 11/22/2017 Pain in left knee ICD-10: M25.562 ICD-9: 719.46 11/22/2017 Pain in right knee ICD-10: M25.561 ICD-9: 719.46 11/22/2017 Slow transit constipation ICD-10: K59.01 ICD-9: 564.01 07/19/2017 Rash and other nonspecific skin eruption ICD-10: R21 ICD-9: 782.1 07/19/2017 Epigastric pain ICD-10: R10.13 ICD-9: 789.06 06/05/2017 Decreased libido ICD-10: R68.82 ICD-9: 799.81 05/11/2017 Pain in right hip ICD-10: M25.551 ICD-9: 719.45 05/03/2017 Pain in left hip ICD-10: M25.552 ICD-9: 719.45 05/03/2017 Periumbilical pain ICD-10: R10.33 ICD-9: 789.05 02/27/2017 Reason For Visit Reason For Visit Effective Dates Notes hernia 05/07/2018 foot pain 04/02/2018 foot pain 02/22/2018 memory loss 02/01/2018 wound follow up 01/02/2018 office procedure 12/21/2017 abdominal pain 11/22/2017 abdominal pain 07/19/2017 abdominal pain 06/05/2017 arthralgia(s) 05/03/2017 nausea 02/27/2017 nausea 01/10/2017 nausea 12/05/2016 Results Observation Observation Code Item Item Code Result Date Glucose Ord14 GLUCOSE 102 mg/dL 04/06/2018 Folate Ord36 Folate 21.66 ng/mL 04/06/2018 Lipid Ord30 CHOL 238 mg/dL 04/06/2018 Lipid Ord30 HDL 59.0 mg/dl 04/06/2018 Lipid Ord30 TRIG 171 mg/dL 04/06/2018 Lipid Ord30 LDL 145 mg/dL 04/06/2018 Lipid Ord30 C/HDL 4.0 Ratio 04/06/2018 B12 Uss546 B12 1119.00 pg/ml 04/06/2018 Comp Metabolic Wby569 NA 142 mEq/L 03/26/2018 Comp Metabolic Ven868 K 4.5 mEq/L 03/26/2018 Comp Metabolic Vqh854 CL 107 mEq/L 03/26/2018 Comp Metabolic Drp841 CO2 26.0 mEq/L 03/26/2018 Comp Metabolic Jzz430 ANION GAP 14 03/26/2018 Comp Metabolic Ncj659 GLUCOSE 141 mg/dL 03/26/2018 Comp Metabolic Ewz090 Creat 0.9 mg/dL 03/26/2018 Comp Metabolic Gfz570 eGFR 86 ml/min/1.73m2 03/26/2018 Comp Metabolic Wzn118 BUN 17 mg/dL 03/26/2018 Comp Metabolic Tfx704 B/C Ratio 18.5 Ratio 03/26/2018 Comp Metabolic Upt207 CALCIUM 8.7 mg/dL 03/26/2018 Comp Metabolic Ato169 ALK PHOS 90 U/L 03/26/2018 Comp Metabolic Egu224 AST(SGOT) 35 U/L 03/26/2018 Comp Metabolic Dih957 ALT(SGPT) 48 U/L 03/26/2018 Comp Metabolic Kmo671 BILI T 0.4 mg/dL 03/26/2018 Comp Metabolic Wys089 ALBUMIN 4.0 g/dL 03/26/2018 Comp Metabolic Hby626 TPRO 5.9 g/dL 03/26/2018 Comp Metabolic Fue526 GLOB 1.9 g/dL 03/26/2018 Comp Metabolic Ahn147 A/G Ratio 2.1 Ratio 03/26/2018 Comp Metabolic Yhr477 Osmo 287 mOsmo 03/26/2018 Cbc With Differential Ord2 WBC 3.53 K/ul 03/26/2018 Cbc With Differential Ord2 RBC 4.68 M/ul 03/26/2018 Cbc With Differential Ord2 HGB 15.2 g/dl 03/26/2018 Cbc With Differential Ord2 HCT 45.3 % 03/26/2018 Cbc With Differential Ord2 Neut% 73.7 % 03/26/2018 Cbc With Differential Ord2 Lymph% 14.7 % 03/26/2018 Cbc With Differential Ord2 MCV 96.8 fl 03/26/2018 Cbc With Differential Ord2 MCH 32.5 pg 03/26/2018 Cbc With Differential Ord2 Clarion% 9.3 % 03/26/2018 Cbc With Differential Ord2 Eos% 2.0 % 03/26/2018 Cbc With Differential Ord2 MCHC 33.6 pg 03/26/2018 Cbc With Differential Ord2 PLT 161 K/ul 03/26/2018 Cbc With Differential Ord2 Baso% 0.3 % 03/26/2018 Cbc With Differential Ord2 RDW 13.6 % 03/26/2018 Cbc With Differential Ord2 Neut ABS# 2.60 K/ul 03/26/2018 Cbc With Differential Ord2 Lymph ABS# 0.52 K/ul 03/26/2018 Cbc With Differential Ord2 Clarion ABS# 0.3 K/ul 03/26/2018 Cbc With Differential Ord2 Eos ABS# 0.1 K/ul 03/26/2018 Cbc With Differential Ord2 Baso ABS# 0.0 K/ul 03/26/2018 Ldh Ord92 LDH 151 U/L 03/26/2018 Comp Metabolic Swm765 NA 139 mEq/L 12/18/2017 Comp Metabolic Qjx930 K 4.6 mEq/L 12/18/2017 Comp Metabolic Rdj990 CL 105 mEq/L 12/18/2017 Comp Metabolic Piy140 CO2 27.0 mEq/L 12/18/2017 Comp Metabolic Bhu254 ANION GAP 12 12/18/2017 Comp Metabolic Xvv564 GLUCOSE 126 mg/dL 12/18/2017 Comp Metabolic Fii657 Creat 0.9 mg/dL 12/18/2017 Comp Metabolic Zax784 eGFR 89 ml/min/1.73m2 12/18/2017 Comp Metabolic Crp303 BUN 19 mg/dL 12/18/2017 Comp Metabolic Agl110 B/C Ratio 21.3 Ratio 12/18/2017 Comp Metabolic Kgl769 CALCIUM 8.8 mg/dL 12/18/2017 Comp Metabolic Zeu714 ALK PHOS 99 U/L 12/18/2017 Comp Metabolic Bpq077 AST(SGOT) 31 U/L 12/18/2017 Comp Metabolic Sfu321 ALT(SGPT) 46 U/L 12/18/2017 Comp Metabolic Xnh871 BILI T 0.5 mg/dL 12/18/2017 Comp Metabolic Vfj211 ALBUMIN 3.9 g/dL 12/18/2017 Comp Metabolic Yzg212 TPRO 5.8 g/dL 12/18/2017 Comp Metabolic Uhh236 GLOB 2.0 g/dL 12/18/2017 Comp Metabolic Eir732 A/G Ratio 2.0 Ratio 12/18/2017 Comp Metabolic Cbu674 Osmo 281 mOsmo 12/18/2017 Magnesium Ord90 Mag 2.1 mg/dL 12/18/2017 Ldh Ord92 LDH 163 U/L 12/18/2017 Cbc With Differential Ord2 WBC 3.65 K/ul 12/18/2017 Cbc With Differential Ord2 RBC 4.64 M/ul 12/18/2017 Cbc With Differential Ord2 HGB 15.0 g/dl 12/18/2017 Cbc With Differential Ord2 HCT 44.2 % 12/18/2017 Cbc With Differential Ord2 Neut% 76.3 % 12/18/2017 Cbc With Differential Ord2 Lymph% 14.5 % 12/18/2017 Cbc With Differential Ord2 MCV 95.3 fl 12/18/2017 Cbc With Differential Ord2 MCH 32.3 pg 12/18/2017 Cbc With Differential Ord2 Clarion% 6.8 % 12/18/2017 Cbc With Differential Ord2 MCHC 33.9 pg 12/18/2017 Cbc With Differential Ord2 Eos% 1.9 % 12/18/2017 Cbc With Differential Ord2 Baso% 0.5 % 12/18/2017 Cbc With Differential Ord2 PLT 170 K/ul 12/18/2017 Cbc With Differential Ord2 Neut ABS# 2.78 K/ul 12/18/2017 Cbc With Differential Ord2 RDW 13.2 % 12/18/2017 Cbc With Differential Ord2 Lymph ABS# 0.53 K/ul 12/18/2017 Cbc With Differential Ord2 Clar[place] ABS# 0.3 K/ul 12/18/2017 Cbc With Differential Ord2 Eos ABS# 0.1 K/ul 12/18/2017 Cbc With Differential Ord2 Baso ABS# 0.0 K/ul 12/18/2017 Cbc With Differential Ord2 WBC 3.58 K/ul 09/22/2017 Cbc With Differential Ord2 RBC 4.70 M/ul 09/22/2017 Cbc With Differential Ord2 HGB 15.1 g/dl 09/22/2017 Cbc With Differential Ord2 Neut% 74.0 % 09/22/2017 Cbc With Differential Ord2 HCT 44.5 % 09/22/2017 Cbc With Differential Ord2 MCV 94.7 fl 09/22/2017 Cbc With Differential Ord2 Lymph% 12.8 % 09/22/2017 Cbc With Differential Ord2 MCH 32.1 pg 09/22/2017 Cbc With Differential Ord2 Clarion% 11.2 % 09/22/2017 Cbc With Differential Ord2 MCHC 33.9 pg 09/22/2017 Cbc With Differential Ord2 Eos% 1.4 % 09/22/2017 Cbc With Differential Ord2 Baso% 0.6 % 09/22/2017 Cbc With Differential Ord2 PLT 162 K/ul 09/22/2017 Cbc With Differential Ord2 RDW 13.8 % 09/22/2017 Cbc With Differential Ord2 Neut ABS# 2.65 K/ul 09/22/2017 Cbc With Differential Ord2 Lymph ABS# 0.46 K/ul 09/22/2017 Cbc With Differential Ord2 Clar[place] ABS# 0.4 K/ul 09/22/2017 Cbc With Differential Ord2 Eos ABS# 0.1 K/ul 09/22/2017 Cbc With Differential Ord2 Baso ABS# 0.0 K/ul 09/22/2017 Uric Acid Ord77 Uric A 5.5 mg/dL 09/22/2017 Ldh Ord92 LDH 130 U/L 09/22/2017 Comp Metabolic Tbb998 NA 141 mEq/L 09/22/2017 Comp Metabolic Vsw063 K 5.2 mEq/L 09/22/2017 Comp Metabolic Wta156 CL 106 mEq/L 09/22/2017 Comp Metabolic Xnu779 CO2 29.0 mEq/L 09/22/2017 Comp Metabolic Tun267 ANION GAP 11 09/22/2017 Comp Metabolic Mpk589 GLUCOSE 115 mg/dL 09/22/2017 Comp Metabolic Ydk259 Creat 0.9 mg/dL 09/22/2017 Comp Metabolic Pgp434 eGFR 88 ml/min/1.73m2 09/22/2017 Comp Metabolic Jsz109 BUN 18 mg/dL 09/22/2017 Comp Metabolic Kqh933 B/C Ratio 20.0 Ratio 09/22/2017 Comp Metabolic Oug008 CALCIUM 8.7 mg/dL 09/22/2017 Comp Metabolic Hyp471 ALK PHOS 103 U/L 09/22/2017 Comp Metabolic Wkh866 AST(SGOT) 32 U/L 09/22/2017 Comp Metabolic Rno554 ALT(SGPT) 51 U/L 09/22/2017 Comp Metabolic Fap831 BILI T 0.4 mg/dL 09/22/2017 Comp Metabolic Ztr938 ALBUMIN 3.8 g/dL 09/22/2017 Comp Metabolic Gve561 TPRO 5.8 g/dL 09/22/2017 Comp Metabolic Ncw539 GLOB 2.0 g/dL 09/22/2017 Comp Metabolic Bni136 A/G Ratio 1.8 Ratio 09/22/2017 Comp Metabolic Tvy277 Osmo 284 mOsmo 09/22/2017 Comp Metabolic Rgl943 NA 140 mEq/L 06/27/2017 Comp Metabolic Bnw458 K 4.6 mEq/L 06/27/2017 Comp Metabolic Zmj845 CL 105 mEq/L 06/27/2017 Comp Metabolic Peq539 CO2 30.0 mEq/L 06/27/2017 Comp Metabolic Ojx645 ANION GAP 10 06/27/2017 Comp Metabolic Bro265 GLUCOSE 95 mg/dL 06/27/2017 Comp Metabolic Hun139 Creat 0.8 mg/dL 06/27/2017 Comp Metabolic Bny483 eGFR 95 ml/min/1.73m2 06/27/2017 Comp Metabolic Lmc352 BUN 14 mg/dL 06/27/2017 Comp Metabolic Pby783 B/C Ratio 16.7 Ratio 06/27/2017 Comp Metabolic Epe570 CALCIUM 9.1 mg/dL 06/27/2017 Comp Metabolic Xwx023 ALK PHOS 129 U/L 06/27/2017 Comp Metabolic Ovo955 AST(SGOT) 29 U/L 06/27/2017 Comp Metabolic Raj958 ALT(SGPT) 33 U/L 06/27/2017 Comp Metabolic Wvi382 BILI T 0.5 mg/dL 06/27/2017 Comp Metabolic Cfo566 ALBUMIN 3.9 g/dL 06/27/2017 Comp Metabolic Tam330 TPRO 6.0 g/dL 06/27/2017 Comp Metabolic Eap610 GLOB 2.1 g/dL 06/27/2017 Comp Metabolic Lys253 A/G Ratio 1.9 Ratio 06/27/2017 Comp Metabolic Jzr651 Osmo 280 mOsmo 06/27/2017 Cbc With Differential Ord2 WBC 3.66 K/ul 06/27/2017 Cbc With Differential Ord2 RBC 4.64 M/ul 06/27/2017 Cbc With Differential Ord2 HGB 14.8 g/dl 06/27/2017 Cbc With Differential Ord2 Neut% 74.4 % 06/27/2017 Cbc With Differential Ord2 HCT 43.4 % 06/27/2017 Cbc With Differential Ord2 MCV 93.5 fl 06/27/2017 Cbc With Differential Ord2 Lymph% 13.7 % 06/27/2017 Cbc With Differential Ord2 Clarion% 9.8 % 06/27/2017 Cbc With Differential Ord2 MCH 31.9 pg 06/27/2017 Cbc With Differential Ord2 MCHC 34.1 pg 06/27/2017 Cbc With Differential Ord2 Eos% 1.6 % 06/27/2017 Cbc With Differential Ord2 Baso% 0.5 % 06/27/2017 Cbc With Differential Ord2 PLT 191 K/ul 06/27/2017 Cbc With Differential Ord2 Neut ABS# 2.72 K/ul 06/27/2017 Cbc With Differential Ord2 RDW 13.8 % 06/27/2017 Cbc With Differential Ord2 Lymph ABS# 0.50 K/ul 06/27/2017 Cbc With Differential Ord2 Clarion ABS# 0.4 K/ul 06/27/2017 Cbc With Differential Ord2 Eos ABS# 0.1 K/ul 06/27/2017 Cbc With Differential Ord2 Baso ABS# 0.0 K/ul 06/27/2017 Ldh Ord92 LDH 173 U/L 06/27/2017 Uric Acid Ord77 Uric A 5.1 mg/dL 06/27/2017 Celi[facility] Disease [facility] 03130 IMMUNOGLOBULIN A-SERUM . 06/20/2017 [facility] 47288 IMMUNOGLOBULIN A-SERUM 89 mg/dL 06/20/2017 [facility] 83948 GLIADIN ANTIBODY, IGG . 06/20/2017 [facility] 90164 GLIADIN ANTIBODY, IGG 3 EU/mL 06/20/2017 [facility] 22947 GLIADIN ANTIBODY, IGA . 06/20/2017 [facility] 91366 GLIADIN ANTIBODY, IGA <9 EU/mL 06/20/2017 [facility] 99410 TISSUE TRANSGLUTAMINASE AB, IGG . 06/20/2017 [facility] 05106 TISSUE TRANSGLUTAMINASE-G 5 EU/mL 06/20/2017 [facility] 04484 TISSUE TRANS. AB IGA W/REFLEX . 06/20/2017 [facility] 00573 TISSUE TRANSGLUTAMINASE-A 6 EU/mL 06/20/2017 Allergen Profile, Comprehensive Food 42066 IMMUNOGLOBULIN E 3 IU/mL 06/19/2017 Allergen Profile, Comprehensive Food 72973 BACON'S YEAST <0.10 kU/L 06/19/2017 Allergen Profile, Comprehensive Food 74333 BARLEY <0.10 kU/L 06/19/2017 Allergen Profile, Comprehensive Food 68165 BEEF <0.10 kU/L 04/2017 Allergen Profile, Comprehensive Food 63133 CHICKEN MEAT <0.10 kU/L 06/19/2017 Allergen Profile, Comprehensive Food 61683 CHOCOLATE <0.10 kU/L 06/19/2017 Allergen Profile, Comprehensive Food 10159 COD <0.10 kU/L 04/2017 Allergen Profile, Comprehensive Food 63175 CORN <0.10 kU/L 04/2017 Allergen Profile, Comprehensive Food 33626 EGG WHITE <0.10 kU/L 06/19/2017 Allergen Profile, Comprehensive Food 08366 LETTUCE <0.10 kU/L 06/19/2017 Allergen Profile, Comprehensive Food 08145 MALT <0.10 kU/L 04/2017 Allergen Profile, Comprehensive Food 58612 MILK <0.10 kU/L 04/2017 Allergen Profile, Comprehensive Food 74108 OAT <0.10 kU/L 04/2017 Allergen Profile, Comprehensive Food 50278 ORANGE <0.10 kU/L 06/19/2017 Allergen Profile, Comprehensive Food 55830 PEANUT <0.10 kU/L 06/19/2017 Allergen Profile, Comprehensive Food 34354 PORK <0.10 kU/L 04/2017 Allergen Profile, Comprehensive Food 07843 POTATO <0.10 kU/L 06/19/2017 Allergen Profile, Comprehensive Food 36031 RYE <0.10 kU/L 04/2017 Allergen Profile, Comprehensive Food 79897 SHRIMP <0.10 kU/L 06/19/2017 Allergen Profile, Comprehensive Food 35611 SOYBEAN <0.10 kU/L 06/19/2017 Allergen Profile, Comprehensive Food 02547 TOMATO <0.10 kU/L 06/19/2017 Allergen Profile, Comprehensive Food 06861 WALNUT <0.10 kU/L 06/19/2017 Allergen Profile, Comprehensive Food 89079 WHEAT <0.10 kU/L Allergen Profile, Comprehensive Food 90511 STRAWBERRY <0.10 kU/L 06/19/2017 Allergen Profile, Comprehensive Food 34152 ALLERGEN INTERPRETATION 06/19/2017 Testosterone Jbh241 Testo 288.8 ng/dL 05/11/2017 Uric Acid Ord77 Uric A 6.0 mg/dL 05/05/2017 C-Reactive Protein Qnt Crqnt CRP 0.3 mg/dl 05/05/2017 Comp Metabolic Dxm338 NA 140 mEq/L 05/05/2017 Comp Metabolic Ijx944 K 4.1 mEq/L 05/05/2017 Comp Metabolic Lgk197 CL 106 mEq/L 05/05/2017 Comp Metabolic Fxy250 CO2 27.0 mEq/L 05/05/2017 Comp Metabolic Shw981 ANION GAP 11 05/05/2017 Comp Metabolic Wnq884 GLUCOSE 107 mg/dL 05/05/2017 Comp Metabolic Gjg926 Creat 0.9 mg/dL 05/05/2017 Comp Metabolic Bpm868 eGFR 89 ml/min/1.73m2 05/05/2017 Comp Metabolic Tim753 BUN 10 mg/dL 05/05/2017 Comp Metabolic Bmt789 B/C Ratio 11.2 Ratio 05/05/2017 Comp Metabolic Dll609 CALCIUM 8.6 mg/dL 05/05/2017 Comp Metabolic Rgy808 ALK PHOS 96 U/L 05/05/2017 Comp Metabolic Wfx760 AST(SGOT) 36 U/L 05/05/2017 Comp Metabolic Oqo780 ALT(SGPT) 40 U/L 05/05/2017 Comp Metabolic Eku122 BILI T 0.3 mg/dL 05/05/2017 Comp Metabolic Jsr397 ALBUMIN 3.8 g/dL 05/05/2017 Comp Metabolic Xim637 TPRO 5.8 g/dL 05/05/2017 Comp Metabolic Txy423 GLOB 2.0 g/dL 05/05/2017 Comp Metabolic Dld547 A/G Ratio 1.9 Ratio 05/05/2017 Comp Metabolic Qyw948 Osmo 279 mOsmo 05/05/2017 Sed Rate Ord21 ESR 22 mm/hr 05/05/2017 Magnesium Ord90 Mag 1.9 mg/dL 05/05/2017 Cbc With Differential Ord2 WBC 2.43 K/ul 05/05/2017 Cbc With Differential Ord2 RBC 4.66 M/ul 05/05/2017 Cbc With Differential Ord2 HGB 14.7 g/dl 05/05/2017 Cbc With Differential Ord2 HCT 43.1 % 05/05/2017 Cbc With Differential Ord2 Neut% 65.4 % 05/05/2017 Cbc With Differential Ord2 MCV 92.5 fl 05/05/2017 Cbc With Differential Ord2 Lymph% 11.1 % 05/05/2017 Cbc With Differential Ord2 MCH 31.5 pg 05/05/2017 Cbc With Differential Ord2 Clarion% 20.6 % 05/05/2017 Cbc With Differential Ord2 MCHC 34.1 pg 05/05/2017 Cbc With Differential Ord2 Eos% 2.5 % 05/05/2017 Cbc With Differential Ord2 PLT 154 K/ul 05/05/2017 Cbc With Differential Ord2 Baso% 0.4 % 05/05/2017 Cbc With Differential Ord2 RDW 13.7 % 05/05/2017 Cbc With Differential Ord2 Neut ABS# 1.59 K/ul 05/05/2017 Cbc With Differential Ord2 Lymph ABS# 0.27 K/ul 05/05/2017 Cbc With Differential Ord2 Clarion ABS# 0.5 K/ul 05/05/2017 Cbc With Differential Ord2 Eos ABS# 0.1 K/ul 05/05/2017 Cbc With Differential Ord2 Baso ABS# 0.0 K/ul 05/05/2017 Magnesium Ord90 Mag 2.2 mg/dL 04/25/2017 Comp Metabolic Xec556 NA 143 mEq/L 04/25/2017 Comp Metabolic Jab491 K 4.2 mEq/L 04/25/2017 Comp Metabolic Fgr847 CL 108 mEq/L 04/25/2017 Comp Metabolic Hly328 CO2 30.0 mEq/L 04/25/2017 Comp Metabolic Mnn794 ANION GAP 9 04/25/2017 Comp Metabolic Vtj680 GLUCOSE 80 mg/dL 04/25/2017 Comp Metabolic Ter750 Creat 0.9 mg/dL 04/25/2017 Comp Metabolic Svw148 eGFR 84 ml/min/1.73m2 04/25/2017 Comp Metabolic Ulk479 BUN 16 mg/dL 04/25/2017 Comp Metabolic Irq019 B/C Ratio 17.0 Ratio 04/25/2017 Comp Metabolic Lpn792 CALCIUM 9.0 mg/dL 04/25/2017 Comp Metabolic Aue786 ALK PHOS 93 U/L 04/25/2017 Comp Metabolic Jme601 AST(SGOT) 32 U/L 04/25/2017 Comp Metabolic Jkc190 ALT(SGPT) 36 U/L 04/25/2017 Comp Metabolic Fqa543 BILI T 0.5 mg/dL 04/25/2017 Comp Metabolic Bgl901 ALBUMIN 3.9 g/dL 04/25/2017 Comp Metabolic Ssi603 TPRO 6.0 g/dL 04/25/2017 Comp Metabolic Lkz979 GLOB 2.1 g/dL 04/25/2017 Comp Metabolic Wvs955 A/G Ratio 1.8 Ratio 04/25/2017 Comp Metabolic Ukb616 Osmo 285 mOsmo 04/25/2017 Cbc With Differential Ord2 WBC 4.98 K/ul 04/25/2017 Cbc With Differential Ord2 RBC 4.62 M/ul 04/25/2017 Cbc With Differential Ord2 HGB 14.7 g/dl 04/25/2017 Cbc With Differential Ord2 HCT 43.2 % 04/25/2017 Cbc With Differential Ord2 Neut% 80.8 % 04/25/2017 Cbc With Differential Ord2 Lymph% 6.4 % 04/25/2017 Cbc With Differential Ord2 MCV 93.5 fl 04/25/2017 Cbc With Differential Ord2 MCH 31.8 pg 04/25/2017 Cbc With Differential Ord2 [place]% 10.2 % 04/25/2017 Cbc With Differential Ord2 Eos% 2.0 % 04/25/2017 Cbc With Differential Ord2 MCHC 34.0 pg 04/25/2017 Cbc With Differential Ord2 PLT 156 K/ul 04/25/2017 Cbc With Differential Ord2 Baso% 0.6 % 04/25/2017 Cbc With Differential Ord2 Neut ABS# 4.02 K/ul 04/25/2017 Cbc With Differential Ord2 RDW 13.6 % 04/25/2017 Cbc With Differential Ord2 Lymph ABS# 0.32 K/ul 04/25/2017 Cbc With Differential Ord2 [place] ABS# 0.5 K/ul 04/25/2017 Cbc With Differential Ord2 Eos ABS# 0.1 K/ul 04/25/2017 Cbc With Differential Ord2 Baso ABS# 0.0 K/ul 04/25/2017 Uric Acid Ord77 Uric A 6.0 mg/dL 04/25/2017 Comp Metabolic Hsw627 NA 142 mEq/L 04/18/2017 Comp Metabolic Reb148 K 4.3 mEq/L 04/18/2017 Comp Metabolic Sjn423 CL 105 mEq/L 04/18/2017 Comp Metabolic Wnq793 CO2 30.0 mEq/L 04/18/2017 Comp Metabolic Smv263 ANION GAP 11 04/18/2017 Comp Metabolic Ftd226 GLUCOSE 126 mg/dL 04/18/2017 Comp Metabolic Rap992 Creat 1.0 mg/dL 04/18/2017 Comp Metabolic Ayn929 eGFR 83 ml/min/1.73m2 04/18/2017 Comp Metabolic Myc315 BUN 17 mg/dL 04/18/2017 Comp Metabolic Zko252 B/C Ratio 17.9 Ratio 04/18/2017 Comp Metabolic Acg789 CALCIUM 9.0 mg/dL 04/18/2017 Comp Metabolic Izt686 ALK PHOS 100 U/L 04/18/2017 Comp Metabolic Zdp307 AST(SGOT) 27 U/L 04/18/2017 Comp Metabolic Sqw352 ALT(SGPT) 36 U/L 04/18/2017 Comp Metabolic Aaw374 BILI T 0.5 mg/dL 04/18/2017 Comp Metabolic Rpz781 ALBUMIN 3.8 g/dL 04/18/2017 Comp Metabolic Dfq261 TPRO 6.0 g/dL 04/18/2017 Comp Metabolic Yvz582 GLOB 2.2 g/dL 04/18/2017 Comp Metabolic Pzw097 A/G Ratio 1.8 Ratio 04/18/2017 Comp Metabolic Avm029 Osmo 286 mOsmo 04/18/2017 Uric Acid Ord77 Uric A 5.9 mg/dL 04/18/2017 Cbc With Differential Ord2 WBC 3.86 K/ul 04/18/2017 Cbc With Differential Ord2 RBC 4.86 M/ul 04/18/2017 Cbc With Differential Ord2 HGB 15.7 g/dl 04/18/2017 Cbc With Differential Ord2 Neut% 81.3 % 04/18/2017 Cbc With Differential Ord2 HCT 45.7 % 04/18/2017 Cbc With Differential Ord2 MCV 94.0 fl 04/18/2017 Cbc With Differential Ord2 Lymph% 6.0 % 04/18/2017 Cbc With Differential Ord2 [place]% 9.6 % 04/18/2017 Cbc With Differential Ord2 MCH 32.3 pg 04/18/2017 Cbc With Differential Ord2 MCHC 34.4 pg 04/18/2017 Cbc With Differential Ord2 Eos% 2.6 % 04/18/2017 Cbc With Differential Ord2 PLT 163 K/ul 04/18/2017 Cbc With Differential Ord2 Baso% 0.5 % 04/18/2017 Cbc With Differential Ord2 RDW 13.7 % 04/18/2017 Cbc With Differential Ord2 Neut ABS# 3.14 K/ul 04/18/2017 Cbc With Differential Ord2 Lymph ABS# 0.23 K/ul 04/18/2017 Cbc With Differential Ord2 [place] ABS# 0.4 K/ul 04/18/2017 Cbc With Differential Ord2 Eos ABS# 0.1 K/ul 04/18/2017 Cbc With Differential Ord2 Baso ABS# 0.0 K/ul 04/18/2017 Magnesium Ord90 Mag 2.1 mg/dL 04/18/2017 Magnesium Ord90 Mag 2.2 mg/dL 03/30/2017 Cbc With Differential Ord2 WBC 6.69 K/ul 03/30/2017 Cbc With Differential Ord2 RBC 4.65 M/ul 03/30/2017 Cbc With Differential Ord2 HGB 14.9 g/dl 03/30/2017 Cbc With Differential Ord2 Neut% 79.4 % 03/30/2017 Cbc With Differential Ord2 HCT 43.4 % 03/30/2017 Cbc With Differential Ord2 MCV 93.3 fl 03/30/2017 Cbc With Differential Ord2 Lymph% 6.3 % 03/30/2017 Cbc With Differential Ord2 MCH 32.0 pg 03/30/2017 Cbc With Differential Ord2 [place]% 12.1 % 03/30/2017 Cbc With Differential Ord2 Eos% 1.8 % 03/30/2017 Cbc With Differential Ord2 MCHC 34.3 pg 03/30/2017 Cbc With Differential Ord2 Baso% 0.4 % 03/30/2017 Cbc With Differential Ord2 PLT 175 K/ul 03/30/2017 Cbc With Differential Ord2 RDW 13.6 % 03/30/2017 Cbc With Differential Ord2 Neut ABS# 5.31 K/ul 03/30/2017 Cbc With Differential Ord2 Lymph ABS# 0.42 K/ul 03/30/2017 Cbc With Differential Ord2 [place] ABS# 0.8 K/ul 03/30/2017 Cbc With Differential Ord2 Eos ABS# 0.1 K/ul 03/30/2017 Cbc With Differential Ord2 Baso ABS# 0.0 K/ul 03/30/2017 Comp Metabolic Aon548 NA 141 mEq/L 03/30/2017 Comp Metabolic Htj778 K 4.7 mEq/L 03/30/2017 Comp Metabolic Zqo961 CL 106 mEq/L 03/30/2017 Comp Metabolic Amc848 CO2 28.0 mEq/L 03/30/2017 Comp Metabolic Sbg191 ANION GAP 12 03/30/2017 Comp Metabolic Llg176 GLUCOSE 81 mg/dL 03/30/2017 Comp Metabolic Xqi571 Creat 1.0 mg/dL 03/30/2017 Comp Metabolic Zxa120 eGFR 80 ml/min/1.73m2 03/30/2017 Comp Metabolic Cwe918 BUN 17 mg/dL 03/30/2017 Comp Metabolic Rvt237 B/C Ratio 17.3 Ratio 03/30/2017 Comp Metabolic Prq979 CALCIUM 8.9 mg/dL 03/30/2017 Comp Metabolic Osf400 ALK PHOS 106 U/L 03/30/2017 Comp Metabolic Hml762 AST(SGOT) 52 U/L 03/30/2017 Comp Metabolic Hgg247 ALT(SGPT) 54 U/L 03/30/2017 Comp Metabolic Nfl127 BILI T 0.4 mg/dL 03/30/2017 Comp Metabolic Ktr922 ALBUMIN 3.8 g/dL 03/30/2017 Comp Metabolic Cey242 TPRO 6.2 g/dL 03/30/2017 Comp Metabolic Qpw495 GLOB 2.4 g/dL 03/30/2017 Comp Metabolic Kjs807 A/G Ratio 1.6 Ratio 03/30/2017 Comp Metabolic Mrl941 Osmo 282 mOsmo 03/30/2017 Uric Acid Ord77 Uric A 5.0 mg/dL 03/30/2017 Cbc With Differential Ord2 WBC 5.12 K/ul 03/23/2017 Cbc With Differential Ord2 RBC 4.88 M/ul 03/23/2017 Cbc With Differential Ord2 HGB 15.6 g/dl 03/23/2017 Cbc With Differential Ord2 HCT 45.9 % 03/23/2017 Cbc With Differential Ord2 Neut% 81.0 % 03/23/2017 Cbc With Differential Ord2 MCV 94.1 fl 03/23/2017 Cbc With Differential Ord2 Lymph% 6.1 % 03/23/2017 Cbc With Differential Ord2 MCH 32.0 pg 03/23/2017 Cbc With Differential Ord2 [place]% 10.7 % 03/23/2017 Cbc With Differential Ord2 MCHC 34.0 pg 03/23/2017 Cbc With Differential Ord2 Eos% 2.0 % 03/23/2017 Cbc With Differential Ord2 PLT 177 K/ul 03/23/2017 Cbc With Differential Ord2 Baso% 0.2 % 03/23/2017 Cbc With Differential Ord2 Neut ABS# 4.15 K/ul 03/23/2017 Cbc With Differential Ord2 RDW 13.8 % 03/23/2017 Cbc With Differential Ord2 Lymph ABS# 0.31 K/ul 03/23/2017 Cbc With Differential Ord2 [place] ABS# 0.6 K/ul 03/23/2017 Cbc With Differential Ord2 Eos ABS# 0.1 K/ul 03/23/2017 Cbc With Differential Ord2 Baso ABS# 0.0 K/ul 03/23/2017 Magnesium Ord90 Mag 2.0 mg/dL 03/23/2017 Comp Metabolic Mps768 NA 140 mEq/L 03/23/2017 Comp Metabolic Ygm857 K 4.4 mEq/L 03/23/2017 Comp Metabolic Tcb971 CL 105 mEq/L 03/23/2017 Comp Metabolic Izs082 CO2 30.0 mEq/L 03/23/2017 Comp Metabolic Voi386 ANION GAP 9 03/23/2017 Comp Metabolic Jea501 GLUCOSE 75 mg/dL 03/23/2017 Comp Metabolic Mat041 Creat 0.9 mg/dL 03/23/2017 Comp Metabolic Nlv516 eGFR 87 ml/min/1.73m2 03/23/2017 Comp Metabolic Sqq852 BUN 17 mg/dL 03/23/2017 Comp Metabolic Ihy911 B/C Ratio 18.7 Ratio 03/23/2017 Comp Metabolic Wvw116 CALCIUM 9.0 mg/dL 03/23/2017 Comp Metabolic Dmu707 ALK PHOS 91 U/L 03/23/2017 Comp Metabolic Jjm995 AST(SGOT) 27 U/L 03/23/2017 Comp Metabolic Ofq089 ALT(SGPT) 30 U/L 03/23/2017 Comp Metabolic Dwz252 BILI T 0.4 mg/dL 03/23/2017 Comp Metabolic Ebp509 ALBUMIN 3.8 g/dL 03/23/2017 Comp Metabolic Ewm976 TPRO 6.1 g/dL 03/23/2017 Comp Metabolic Zmn262 GLOB 2.3 g/dL 03/23/2017 Comp Metabolic Vuy617 A/G Ratio 1.7 Ratio 03/23/2017 Comp Metabolic Mlg281 Osmo 280 mOsmo 03/23/2017 Uric Acid Ord77 Uric A 5.0 mg/dL 03/23/2017 Magnesium Ord90 Mag 2.1 mg/dL 03/06/2017 Uric Acid Ord77 Uric A 4.4 mg/dL 03/06/2017 Cbc With Differential Ord2 WBC 4.28 K/ul 03/06/2017 Cbc With Differential Ord2 RBC 4.63 M/ul 03/06/2017 Cbc With Differential Ord2 HGB 14.7 g/dl 03/06/2017 Cbc With Differential Ord2 HCT 43.5 % 03/06/2017 Cbc With Differential Ord2 Neut% 77.7 % 03/06/2017 Cbc With Differential Ord2 Lymph% 7.7 % 03/06/2017 Cbc With Differential Ord2 MCV 94.0 fl 03/06/2017 Cbc With Differential Ord2 [place]% 11.4 % 03/06/2017 Cbc With Differential Ord2 MCH 31.7 pg 03/06/2017 Cbc With Differential Ord2 Eos% 3.0 % 03/06/2017 Cbc With Differential Ord2 MCHC 33.8 pg 03/06/2017 Cbc With Differential Ord2 PLT 164 K/ul 03/06/2017 Cbc With Differential Ord2 Baso% 0.2 % 03/06/2017 Cbc With Differential Ord2 Neut ABS# 3.32 K/ul 03/06/2017 Cbc With Differential Ord2 RDW 14.0 % 03/06/2017 Cbc With Differential Ord2 Lymph ABS# 0.33 K/ul 03/06/2017 Cbc With Differential Ord2 [place] ABS# 0.5 K/ul 03/06/2017 Cbc With Differential Ord2 Eos ABS# 0.1 K/ul 03/06/2017 Cbc With Differential Ord2 Baso ABS# 0.0 K/ul 03/06/2017 Comp Metabolic Wua007 NA 143 mEq/L 03/06/2017 Comp Metabolic Ona376 K 4.1 mEq/L 03/06/2017 Comp Metabolic Sht599 CL 107 mEq/L 03/06/2017 Comp Metabolic Nhz265 CO2 29.0 mEq/L 03/06/2017 Comp Metabolic Pvm061 ANION GAP 11 03/06/2017 Comp Metabolic Qsa195 GLUCOSE 129 mg/dL 03/06/2017 Comp Metabolic Gyl846 Creat 0.9 mg/dL 03/06/2017 Comp Metabolic Pdd279 eGFR 88 ml/min/1.73m2 03/06/2017 Comp Metabolic Ybl961 BUN 15 mg/dL 03/06/2017 Comp Metabolic Fhu542 B/C Ratio 16.7 Ratio 03/06/2017 Comp Metabolic Jqg945 CALCIUM 8.7 mg/dL 03/06/2017 Comp Metabolic Fuw854 ALK PHOS 99 U/L 03/06/2017 Comp Metabolic Mmv098 AST(SGOT) 29 U/L 03/06/2017 Comp Metabolic Kyt504 ALT(SGPT) 30 U/L 03/06/2017 Comp Metabolic Yel752 BILI T 0.4 mg/dL 03/06/2017 Comp Metabolic Kjg208 ALBUMIN 3.8 g/dL 03/06/2017 Comp Metabolic Ria049 TPRO 5.9 g/dL 03/06/2017 Comp Metabolic Jtg399 GLOB 2.1 g/dL 03/06/2017 Comp Metabolic Ilh134 A/G Ratio 1.9 Ratio 03/06/2017 Comp Metabolic Jpg396 Osmo 288 mOsmo 03/06/2017 Cbc With Differential Ord2 WBC 6.05 K/ul 02/27/2017 Cbc With Differential Ord2 RBC 4.58 M/ul 02/27/2017 Cbc With Differential Ord2 HGB 14.7 g/dl 02/27/2017 Cbc With Differential Ord2 Neut% 81.9 % 02/27/2017 Cbc With Differential Ord2 HCT 43.1 % 02/27/2017 Cbc With Differential Ord2 Lymph% 5.3 % 02/27/2017 Cbc With Differential Ord2 MCV 94.1 fl 02/27/2017 Cbc With Differential Ord2 [place]% 10.1 % 02/27/2017 Cbc With Differential Ord2 MCH 32.1 pg 02/27/2017 Cbc With Differential Ord2 MCHC 34.1 pg 02/27/2017 Cbc With Differential Ord2 Eos% 2.0 % 02/27/2017 Cbc With Differential Ord2 PLT 190 K/ul 02/27/2017 Cbc With Differential Ord2 Baso% 0.7 % 02/27/2017 Cbc With Differential Ord2 Neut ABS# 4.96 K/ul 02/27/2017 Cbc With Differential Ord2 RDW 13.9 % 02/27/2017 Cbc With Differential Ord2 Lymph ABS# 0.32 K/ul 02/27/2017 Cbc With Differential Ord2 [place] ABS# 0.6 K/ul 02/27/2017 Cbc With Differential Ord2 Eos ABS# 0.1 K/ul 02/27/2017 Cbc With Differential Ord2 Baso ABS# 0.0 K/ul 02/27/2017 Uric Acid Ord77 Uric A 5.5 mg/dL 02/27/2017 Magnesium Ord90 Mag 2.2 mg/dL 02/27/2017 Comp Metabolic Bbf321 NA 141 mEq/L 02/27/2017 Comp Metabolic Oii118 K 4.5 mEq/L 02/27/2017 Comp Metabolic Pga338 CL 105 mEq/L 02/27/2017 Comp Metabolic Vap267 CO2 30.0 mEq/L 02/27/2017 Comp Metabolic Pdv723 ANION GAP 11 02/27/2017 Comp Metabolic Aqz734 GLUCOSE 73 mg/dL 02/27/2017 Comp Metabolic Lon165 Creat 0.9 mg/dL 02/27/2017 Comp Metabolic Mvj770 eGFR 87 ml/min/1.73m2 02/27/2017 Comp Metabolic Ouq177 BUN 17 mg/dL 02/27/2017 Comp Metabolic Lhs145 B/C Ratio 18.7 Ratio 02/27/2017 Comp Metabolic Bhq074 CALCIUM 8.8 mg/dL 02/27/2017 Comp Metabolic Mhw728 ALK PHOS 93 U/L 02/27/2017 Comp Metabolic Sgd773 AST(SGOT) 31 U/L 02/27/2017 Comp Metabolic Afj585 ALT(SGPT) 35 U/L 02/27/2017 Comp Metabolic Okn127 BILI T 0.4 mg/dL 02/27/2017 Comp Metabolic Ufw745 ALBUMIN 3.9 g/dL 02/27/2017 Comp Metabolic Vyo358 TPRO 5.9 g/dL 02/27/2017 Comp Metabolic Ltz183 GLOB 2.0 g/dL 02/27/2017 Comp Metabolic Duz425 A/G Ratio 2.0 Ratio 02/27/2017 Comp Metabolic Qar115 Osmo 281 mOsmo 02/27/2017 Magnesium Ord90 Mag 2.2 mg/dL 02/21/2017 Cbc With Differential Ord2 WBC 5.58 K/ul 02/21/2017 Cbc With Differential Ord2 RBC 4.78 M/ul 02/21/2017 Cbc With Differential Ord2 HGB 15.3 g/dl 02/21/2017 Cbc With Differential Ord2 Neut% 82.7 % 02/21/2017 Cbc With Differential Ord2 HCT 44.6 % 02/21/2017 Cbc With Differential Ord2 Lymph% 5.6 % 02/21/2017 Cbc With Differential Ord2 MCV 93.3 fl 02/21/2017 Cbc With Differential Ord2 MCH 32.0 pg 02/21/2017 Cbc With Differential Ord2 [place]% 9.0 % 02/21/2017 Cbc With Differential Ord2 Eos% 2.5 % 02/21/2017 Cbc With Differential Ord2 MCHC 34.3 pg 02/21/2017 Cbc With Differential Ord2 PLT 191 K/ul 02/21/2017 Cbc With Differential Ord2 Baso% 0.2 % 02/21/2017 Cbc With Differential Ord2 Neut ABS# 4.62 K/ul 02/21/2017 Cbc With Differential Ord2 RDW 14.1 % 02/21/2017 Cbc With Differential Ord2 Lymph ABS# 0.31 K/ul 02/21/2017 Cbc With Differential Ord2 [place] ABS# 0.5 K/ul 02/21/2017 Cbc With Differential Ord2 Eos ABS# 0.1 K/ul 02/21/2017 Cbc With Differential Ord2 Baso ABS# 0.0 K/ul 02/21/2017 Uric Acid Ord77 Uric A 5.0 mg/dL 02/21/2017 Comp Metabolic Iol060 NA 134 mEq/L 02/21/2017 Comp Metabolic Dcs432 K 4.3 mEq/L 02/21/2017 Comp Metabolic Tsa930 CL 100 mEq/L 02/21/2017 Comp Metabolic Ckb643 CO2 28.0 mEq/L 02/21/2017 Comp Metabolic Rey799 ANION GAP 10 02/21/2017 Comp Metabolic Sgo520 GLUCOSE 130 mg/dL 02/21/2017 Comp Metabolic Lef485 Creat 1.0 mg/dL 02/21/2017 Comp Metabolic Exs632 eGFR 77 ml/min/1.73m2 02/21/2017 Comp Metabolic Scf332 BUN 17 mg/dL 02/21/2017 Comp Metabolic Gty822 B/C Ratio 16.8 Ratio 02/21/2017 Comp Metabolic Jxi209 CALCIUM 9.1 mg/dL 02/21/2017 Comp Metabolic Dmm537 ALK PHOS 92 U/L 02/21/2017 Comp Metabolic Tng914 AST(SGOT) 23 U/L 02/21/2017 Comp Metabolic Chq887 ALT(SGPT) 29 U/L 02/21/2017 Comp Metabolic Zaa470 BILI T 0.3 mg/dL 02/21/2017 Comp Metabolic Cva657 ALBUMIN 3.9 g/dL 02/21/2017 Comp Metabolic Gnx069 TPRO 6.1 g/dL 02/21/2017 Comp Metabolic Mqz252 GLOB 2.2 g/dL 02/21/2017 Comp Metabolic Hkx879 A/G Ratio 1.8 Ratio 02/21/2017 Comp Metabolic Wiu200 Osmo 272 mOsmo 02/21/2017 Uric Acid Ord77 Uric A 4.2 mg/dL 02/07/2017 Comp Metabolic Trq033 NA 139 mEq/L 02/07/2017 Comp Metabolic Avm044 K 4.6 mEq/L 02/07/2017 Comp Metabolic Rnj100 CL 106 mEq/L 02/07/2017 Comp Metabolic Xgh492 CO2 29.0 mEq/L 02/07/2017 Comp Metabolic Hcq083 ANION GAP 9 02/07/2017 Comp Metabolic Ujq211 GLUCOSE 99 mg/dL 02/07/2017 Comp Metabolic Yah183 Creat 0.9 mg/dL 02/07/2017 Comp Metabolic Wit122 eGFR 92 ml/min/1.73m2 02/07/2017 Comp Metabolic Acf552 BUN 19 mg/dL 02/07/2017 Comp Metabolic Ovb416 B/C Ratio 21.8 Ratio 02/07/2017 Comp Metabolic Ckn640 CALCIUM 8.8 mg/dL 02/07/2017 Comp Metabolic Tjr550 ALK PHOS 81 U/L 02/07/2017 Comp Metabolic Gcl936 AST(SGOT) 22 U/L 02/07/2017 Comp Metabolic Dug949 ALT(SGPT) 24 U/L 02/07/2017 Comp Metabolic Ssk955 BILI T 0.3 mg/dL 02/07/2017 Comp Metabolic Zsb065 ALBUMIN 3.9 g/dL 02/07/2017 Comp Metabolic Jsz701 TPRO 5.8 g/dL 02/07/2017 Comp Metabolic Cpc100 GLOB 1.9 g/dL 02/07/2017 Comp Metabolic Myx942 A/G Ratio 2.0 Ratio 02/07/2017 Comp Metabolic Kts843 Osmo 280 mOsmo 02/07/2017 Cbc With Differential Ord2 WBC 4.24 K/ul 02/07/2017 Cbc With Differential Ord2 RBC 4.67 M/ul 02/07/2017 Cbc With Differential Ord2 HGB 14.9 g/dl 02/07/2017 Cbc With Differential Ord2 HCT 43.6 % 02/07/2017 Cbc With Differential Ord2 Neut% 73.8 % 02/07/2017 Cbc With Differential Ord2 MCV 93.4 fl 02/07/2017 Cbc With Differential Ord2 Lymph% 10.4 % 02/07/2017 Cbc With Differential Ord2 MCH 31.9 pg 02/07/2017 Cbc With Differential Ord2 [place]% 12.0 % 02/07/2017 Cbc With Differential Ord2 MCHC 34.2 pg 02/07/2017 Cbc With Differential Ord2 Eos% 3.1 % 02/07/2017 Cbc With Differential Ord2 Baso% 0.7 % 02/07/2017 Cbc With Differential Ord2 PLT 184 K/ul 02/07/2017 Cbc With Differential Ord2 Neut ABS# 3.13 K/ul 02/07/2017 Cbc With Differential Ord2 RDW 14.2 % 02/07/2017 Cbc With Differential Ord2 Lymph ABS# 0.44 K/ul 02/07/2017 Cbc With Differential Ord2 [place] ABS# 0.5 K/ul 02/07/2017 Cbc With Differential Ord2 Eos ABS# 0.1 K/ul 02/07/2017 Cbc With Differential Ord2 Baso ABS# 0.0 K/ul 02/07/2017 Magnesium Ord90 Mag 2.1 mg/dL 02/07/2017 Comp Metabolic Mec106 NA 142 mEq/L 01/31/2017 Comp Metabolic Cbr262 K 4.7 mEq/L 01/31/2017 Comp Metabolic Jpx017 CL 106 mEq/L 01/31/2017 Comp Metabolic Bzh694 CO2 32.0 mEq/L 01/31/2017 Comp Metabolic Bjf390 ANION GAP 9 01/31/2017 Comp Metabolic Xyo662 GLUCOSE 93 mg/dL 01/31/2017 Comp Metabolic Thf669 Creat 1.0 mg/dL 01/31/2017 Comp Metabolic Fdf489 eGFR 83 ml/min/1.73m2 01/31/2017 Comp Metabolic Fdo487 BUN 20 mg/dL 01/31/2017 Comp Metabolic Egw482 B/C Ratio 21.1 Ratio 01/31/2017 Comp Metabolic Cvy545 CALCIUM 9.1 mg/dL 01/31/2017 Comp Metabolic Tkv941 ALK PHOS 80 U/L 01/31/2017 Comp Metabolic Avv040 AST(SGOT) 22 U/L 01/31/2017 Comp Metabolic Krb258 ALT(SGPT) 24 U/L 01/31/2017 Comp Metabolic Sjm545 BILI T 0.4 mg/dL 01/31/2017 Comp Metabolic Srm477 ALBUMIN 4.0 g/dL 01/31/2017 Comp Metabolic Uce046 TPRO 6.0 g/dL 01/31/2017 Comp Metabolic Pzk885 GLOB 2.1 g/dL 01/31/2017 Comp Metabolic Aww235 A/G Ratio 1.9 Ratio 01/31/2017 Comp Metabolic Cmt462 Osmo 285 mOsmo 01/31/2017 Cbc With Differential Ord2 WBC 7.12 K/ul 01/31/2017 Cbc With Differential Ord2 RBC 4.64 M/ul 01/31/2017 Cbc With Differential Ord2 HGB 14.8 g/dl 01/31/2017 Cbc With Differential Ord2 HCT 43.8 % 01/31/2017 Cbc With Differential Ord2 Neut% 85.0 % 01/31/2017 Cbc With Differential Ord2 Lymph% 5.3 % 01/31/2017 Cbc With Differential Ord2 MCV 94.4 fl 01/31/2017 Cbc With Differential Ord2 [place]% 7.9 % 01/31/2017 Cbc With Differential Ord2 MCH 31.9 pg 01/31/2017 Cbc With Differential Ord2 Eos% 1.7 % 01/31/2017 Cbc With Differential Ord2 MCHC 33.8 pg 01/31/2017 Cbc With Differential Ord2 PLT 173 K/ul 01/31/2017 Cbc With Differential Ord2 Baso% 0.1 % 01/31/2017 Cbc With Differential Ord2 Neut ABS# 6.05 K/ul 01/31/2017 Cbc With Differential Ord2 RDW 14.5 % 01/31/2017 Cbc With Differential Ord2 Lymph ABS# 0.38 K/ul 01/31/2017 Cbc With Differential Ord2 [place] ABS# 0.6 K/ul 01/31/2017 Cbc With Differential Ord2 Eos ABS# 0.1 K/ul 01/31/2017 Cbc With Differential Ord2 Baso ABS# 0.0 K/ul 01/31/2017 Uric Acid Ord77 Uric A 4.9 mg/dL 01/31/2017 Magnesium Ord90 Mag 2.1 mg/dL 01/31/2017 Magnesium Ord90 Mag 2.0 mg/dL 01/23/2017 Cbc With Differential Ord2 WBC 5.85 K/ul 01/23/2017 Cbc With Differential Ord2 RBC 4.39 M/ul 01/23/2017 Cbc With Differential Ord2 HGB 14.1 g/dl 01/23/2017 Cbc With Differential Ord2 HCT 41.5 % 01/23/2017 Cbc With Differential Ord2 Neut% 82.2 % 01/23/2017 Cbc With Differential Ord2 MCV 94.5 fl 01/23/2017 Cbc With Differential Ord2 Lymph% 7.2 % 01/23/2017 Cbc With Differential Ord2 MCH 32.1 pg 01/23/2017 Cbc With Differential Ord2 [place]% 8.9 % 01/23/2017 Cbc With Differential Ord2 MCHC 34.0 pg 01/23/2017 Cbc With Differential Ord2 Eos% 1.5 % 01/23/2017 Cbc With Differential Ord2 Baso% 0.2 % 01/23/2017 Cbc With Differential Ord2 PLT 177 K/ul 01/23/2017 Cbc With Differential Ord2 RDW 14.5 % 01/23/2017 Cbc With Differential Ord2 Neut ABS# 4.81 K/ul 01/23/2017 Cbc With Differential Ord2 Lymph ABS# 0.42 K/ul 01/23/2017 Cbc With Differential Ord2 [place] ABS# 0.5 K/ul 01/23/2017 Cbc With Differential Ord2 Eos ABS# 0.1 K/ul 01/23/2017 Cbc With Differential Ord2 Baso ABS# 0.0 K/ul 01/23/2017 Uric Acid Ord77 Uric A 5.4 mg/dL 01/23/2017 Comp Metabolic Yng731 NA 141 mEq/L 01/23/2017 Comp Metabolic Lsv955 K 4.4 mEq/L 01/23/2017 Comp Metabolic Oxy835 CL 104 mEq/L 01/23/2017 Comp Metabolic Zip832 CO2 31.0 mEq/L 01/23/2017 Comp Metabolic Sad523 ANION GAP 10 01/23/2017 Comp Metabolic Dos405 GLUCOSE 109 mg/dL 01/23/2017 Comp Metabolic Jbu052 Creat 1.1 mg/dL 01/23/2017 Comp Metabolic Osc899 eGFR 71 ml/min/1.73m2 01/23/2017 Comp Metabolic Iab221 BUN 22 mg/dL 01/23/2017 Comp Metabolic Yuy929 B/C Ratio 20.4 Ratio 01/23/2017 Comp Metabolic Guq600 CALCIUM 9.1 mg/dL 01/23/2017 Comp Metabolic Qgu566 ALK PHOS 76 U/L 01/23/2017 Comp Metabolic Cux118 AST(SGOT) 22 U/L 01/23/2017 Comp Metabolic Ily285 ALT(SGPT) 22 U/L 01/23/2017 Comp Metabolic Oiu594 BILI T 0.4 mg/dL 01/23/2017 Comp Metabolic Qjs523 ALBUMIN 3.8 g/dL 01/23/2017 Comp Metabolic Dya952 TPRO 5.9 g/dL 01/23/2017 Comp Metabolic Yjs211 GLOB 2.1 g/dL 01/23/2017 Comp Metabolic Jqw996 A/G Ratio 1.8 Ratio 01/23/2017 Comp Metabolic Ivi494 Osmo 285 mOsmo 01/23/2017 Testosterone Nfc678 Testo 321.3 ng/dL 01/10/2017 Comp Metabolic Eeq845 NA 141 mEq/L 01/10/2017 Comp Metabolic Jby136 K 4.8 mEq/L 01/10/2017 Comp Metabolic Tvi910 CL 106 mEq/L 01/10/2017 Comp Metabolic Dpt420 CO2 29.0 mEq/L 01/10/2017 Comp Metabolic Ule529 ANION GAP 11 01/10/2017 Comp Metabolic Lbr424 GLUCOSE 73 mg/dL 01/10/2017 Comp Metabolic Izq591 Creat 0.9 mg/dL 01/10/2017 Comp Metabolic Cfm223 eGFR 93 ml/min/1.73m2 01/10/2017 Comp Metabolic Jyj939 BUN 19 mg/dL 01/10/2017 Comp Metabolic Trs392 B/C Ratio 22.1 Ratio 01/10/2017 Comp Metabolic Gih294 CALCIUM 9.0 mg/dL 01/10/2017 Comp Metabolic Rmu005 ALK PHOS 80 U/L 01/10/2017 Comp Metabolic Wzs575 AST(SGOT) 24 U/L 01/10/2017 Comp Metabolic Sct936 ALT(SGPT) 28 U/L 01/10/2017 Comp Metabolic Dji223 BILI T 0.4 mg/dL 01/10/2017 Comp Metabolic Orq192 ALBUMIN 3.8 g/dL 01/10/2017 Comp Metabolic Ckg678 TPRO 5.9 g/dL 01/10/2017 Comp Metabolic Oop300 GLOB 2.1 g/dL 01/10/2017 Comp Metabolic Ptg875 A/G Ratio 1.9 Ratio 01/10/2017 Comp Metabolic Eox043 Osmo 282 mOsmo 01/10/2017 Cbc With Differential Ord2 WBC 6.43 K/ul 01/10/2017 Cbc With Differential Ord2 RBC 4.61 M/ul 01/10/2017 Cbc With Differential Ord2 HGB 14.7 g/dl 01/10/2017 Cbc With Differential Ord2 HCT 43.6 % 01/10/2017 Cbc With Differential Ord2 Neut% 78.6 % 01/10/2017 Cbc With Differential Ord2 Lymph% 9.6 % 01/10/2017 Cbc With Differential Ord2 MCV 94.6 fl 01/10/2017 Cbc With Differential Ord2 MCH 31.9 pg 01/10/2017 Cbc With Differential Ord2 [place]% 9.6 % 01/10/2017 Cbc With Differential Ord2 Eos% 1.9 % 01/10/2017 Cbc With Differential Ord2 MCHC 33.7 pg 01/10/2017 Cbc With Differential Ord2 Baso% 0.3 % 01/10/2017 Cbc With Differential Ord2 PLT 201 K/ul 01/10/2017 Cbc With Differential Ord2 RDW 14.6 % 01/10/2017 Cbc With Differential Ord2 Neut ABS# 5.05 K/ul 01/10/2017 Cbc With Differential Ord2 Lymph ABS# 0.62 K/ul 01/10/2017 Cbc With Differential Ord2 [place] ABS# 0.6 K/ul 01/10/2017 Cbc With Differential Ord2 Eos ABS# 0.1 K/ul 01/10/2017 Cbc With Differential Ord2 Baso ABS# 0.0 K/ul 01/10/2017 Cbc With Differential Ord2 WBC 6.19 K/ul 01/03/2017 Cbc With Differential Ord2 RBC 4.47 M/ul 01/03/2017 Cbc With Differential Ord2 HGB 14.2 g/dl 01/03/2017 Cbc With Differential Ord2 HCT 41.9 % 01/03/2017 Cbc With Differential Ord2 Neut% 82.2 % 01/03/2017 Cbc With Differential Ord2 Lymph% 6.8 % 01/03/2017 Cbc With Differential Ord2 MCV 93.7 fl 01/03/2017 Cbc With Differential Ord2 MCH 31.8 pg 01/03/2017 Cbc With Differential Ord2 [place]% 8.6 % 01/03/2017 Cbc With Differential Ord2 MCHC 33.9 pg 01/03/2017 Cbc With Differential Ord2 Eos% 1.9 % 01/03/2017 Cbc With Differential Ord2 PLT 172 K/ul 01/03/2017 Cbc With Differential Ord2 Baso% 0.5 % 01/03/2017 Cbc With Differential Ord2 RDW 14.3 % 01/03/2017 Cbc With Differential Ord2 Neut ABS# 5.09 K/ul 01/03/2017 Cbc With Differential Ord2 Lymph ABS# 0.42 K/ul 01/03/2017 Cbc With Differential Ord2 [place] ABS# 0.5 K/ul 01/03/2017 Cbc With Differential Ord2 Eos ABS# 0.1 K/ul 01/03/2017 Cbc With Differential Ord2 Baso ABS# 0.0 K/ul 01/03/2017 Comp Metabolic Qet702 NA 140 mEq/L 01/03/2017 Comp Metabolic Buc957 K 4.7 mEq/L 01/03/2017 Comp Metabolic Fry823 CL 106 mEq/L 01/03/2017 Comp Metabolic Hqh575 CO2 28.0 mEq/L 01/03/2017 Comp Metabolic Hhl781 ANION GAP 11 01/03/2017 Comp Metabolic Agx190 GLUCOSE 126 mg/dL 01/03/2017 Comp Metabolic Kdr582 Creat 0.9 mg/dL 01/03/2017 Comp Metabolic Khb554 eGFR 88 ml/min/1.73m2 01/03/2017 Comp Metabolic Rzs655 BUN 23 mg/dL 01/03/2017 Comp Metabolic Qbf539 B/C Ratio 25.6 Ratio 01/03/2017 Comp Metabolic Wub796 CALCIUM 8.8 mg/dL 01/03/2017 Comp Metabolic Zuy144 ALK PHOS 73 U/L 01/03/2017 Comp Metabolic Wbx507 AST(SGOT) 25 U/L 01/03/2017 Comp Metabolic Ldg918 ALT(SGPT) 30 U/L 01/03/2017 Comp Metabolic Cnc098 BILI T 0.4 mg/dL 01/03/2017 Comp Metabolic Bux158 ALBUMIN 3.9 g/dL 01/03/2017 Comp Metabolic Ssb832 TPRO 5.9 g/dL 01/03/2017 Comp Metabolic Zdl965 GLOB 2.1 g/dL 01/03/2017 Comp Metabolic Sji364 A/G Ratio 1.9 Ratio 01/03/2017 Comp Metabolic Zxd464 Osmo 285 mOsmo 01/03/2017 Cbc With Differential Ord2 WBC 5.98 K/ul 12/12/2016 Cbc With Differential Ord2 RBC 4.48 M/ul 12/12/2016 Cbc With Differential Ord2 HGB 14.2 g/dl 12/12/2016 Cbc With Differential Ord2 HCT 42.3 % 12/12/2016 Cbc With Differential Ord2 Neut% 75.2 % 12/12/2016 Cbc With Differential Ord2 MCV 94.4 fl 12/12/2016 Cbc With Differential Ord2 Lymph% 13.4 % 12/12/2016 Cbc With Differential Ord2 MCH 31.7 pg 12/12/2016 Cbc With Differential Ord2 [place]% 8.9 % 12/12/2016 Cbc With Differential Ord2 MCHC 33.6 pg 12/12/2016 Cbc With Differential Ord2 Eos% 1.7 % 12/12/2016 Cbc With Differential Ord2 PLT 186 K/ul 12/12/2016 Cbc With Differential Ord2 Baso% 0.8 % 12/12/2016 Cbc With Differential Ord2 RDW 14.6 % 12/12/2016 Cbc With Differential Ord2 Neut ABS# 4.50 K/ul 12/12/2016 Cbc With Differential Ord2 Lymph ABS# 0.80 K/ul 12/12/2016 Cbc With Differential Ord2 [place] ABS# 0.5 K/ul 12/12/2016 Cbc With Differential Ord2 Eos ABS# 0.1 K/ul 12/12/2016 Cbc With Differential Ord2 Baso ABS# 0.1 K/ul 12/12/2016 Comp Metabolic Oog542 NA 140 mEq/L 12/12/2016 Comp Metabolic Vmf666 K 3.8 mEq/L 12/12/2016 Comp Metabolic Yez745 CL 105 mEq/L 12/12/2016 Comp Metabolic Tre250 CO2 26.0 mEq/L 12/12/2016 Comp Metabolic Lir372 ANION GAP 13 12/12/2016 Comp Metabolic Rkl818 GLUCOSE 112 mg/dL 12/12/2016 Comp Metabolic Bxw480 Creat 0.9 mg/dL 12/12/2016 Comp Metabolic Pbg127 eGFR 89 ml/min/1.73m2 12/12/2016 Comp Metabolic Ckr775 BUN 16 mg/dL 12/12/2016 Comp Metabolic Jhv804 B/C Ratio 18.0 Ratio 12/12/2016 Comp Metabolic Lvz624 CALCIUM 8.6 mg/dL 12/12/2016 Comp Metabolic Rov126 ALK PHOS 80 U/L 12/12/2016 Comp Metabolic Ifk421 AST(SGOT) 21 U/L 12/12/2016 Comp Metabolic Jab562 ALT(SGPT) 23 U/L 12/12/2016 Comp Metabolic Lyr202 BILI T 0.4 mg/dL 12/12/2016 Comp Metabolic Pzc023 ALBUMIN 3.7 g/dL 12/12/2016 Comp Metabolic Jmg532 TPRO 5.6 g/dL 12/12/2016 Comp Metabolic Eix156 GLOB 1.9 g/dL 12/12/2016 Comp Metabolic Jzj177 A/G Ratio 2.0 Ratio 12/12/2016 Comp Metabolic Ohg805 Osmo 281 mOsmo 12/12/2016 Comp Metabolic Tno684 NA 140 mEq/L 12/05/2016 Comp Metabolic Bwg446 K 4.6 mEq/L 12/05/2016 Comp Metabolic Znz001 CL 104 mEq/L 12/05/2016 Comp Metabolic Kca650 CO2 29.0 mEq/L 12/05/2016 Comp Metabolic Ret781 ANION GAP 12 12/05/2016 Comp Metabolic Ovu495 GLUCOSE 93 mg/dL 12/05/2016 Comp Metabolic Dzd701 Creat 0.8 mg/dL 12/05/2016 Comp Metabolic Fsx916 eGFR 98 ml/min/1.73m2 12/05/2016 Comp Metabolic Hts596 BUN 20 mg/dL 12/05/2016 Comp Metabolic Rpy241 B/C Ratio 24.4 Ratio 12/05/2016 Comp Metabolic Bzn874 CALCIUM 8.8 mg/dL 12/05/2016 Comp Metabolic Scy493 ALK PHOS 82 U/L 12/05/2016 Comp Metabolic Fpo260 AST(SGOT) 24 U/L 12/05/2016 Comp Metabolic Fqf808 ALT(SGPT) 28 U/L 12/05/2016 Comp Metabolic Thc203 BILI T 0.4 mg/dL 12/05/2016 Comp Metabolic Oqi993 ALBUMIN 3.9 g/dL 12/05/2016 Comp Metabolic Dxm608 TPRO 5.9 g/dL 12/05/2016 Comp Metabolic Fln856 GLOB 2.0 g/dL 12/05/2016 Comp Metabolic Ifg223 A/G Ratio 2.0 Ratio 12/05/2016 Comp Metabolic Luv641 Osmo 282 mOsmo 12/05/2016 Cbc With Differential Ord2 WBC 7.85 K/ul 12/05/2016 Cbc With Differential Ord2 RBC 4.66 M/ul 12/05/2016 Cbc With Differential Ord2 HGB 14.6 g/dl 12/05/2016 Cbc With Differential Ord2 Neut% 73.6 % 12/05/2016 Cbc With Differential Ord2 HCT 44.0 % 12/05/2016 Cbc With Differential Ord2 MCV 94.4 fl 12/05/2016 Cbc With Differential Ord2 Lymph% 14.8 % 12/05/2016 Cbc With Differential Ord2 MCH 31.3 pg 12/05/2016 Cbc With Differential Ord2 Clarion% 8.8 % 12/05/2016 Cbc With Differential Ord2 Eos% 2.3 % 12/05/2016 Cbc With Differential Ord2 MCHC 33.2 pg 12/05/2016 Cbc With Differential Ord2 Baso% 0.5 % 12/05/2016 Cbc With Differential Ord2 PLT 196 K/ul 12/05/2016 Cbc With Differential Ord2 Neut ABS# 5.78 K/ul 12/05/2016 Cbc With Differential Ord2 RDW 15.2 % 12/05/2016 Cbc With Differential Ord2 Lymph ABS# 1.16 K/ul 12/05/2016 Cbc With Differential Ord2 Clarion ABS# 0.7 K/ul 12/05/2016 Cbc With Differential Ord2 Eos ABS# 0.2 K/ul 12/05/2016 Cbc With Differential Ord2 Baso ABS# 0.0 K/ul 12/05/2016 Review of Systems System Result Effective Dates Constitutional No recent illness 2018 Constitutional No chills 05/07/2018 Constitutional No diaphoresis 05/07/2018 Constitutional No fever 05/07/2018 Eyes No eye erythema 05/07/2018 Ears/Nose/Throat/Neck No nasal discharge 05/07/2018 Cardiovascular No chest pain/pressure Cardiovascular No dyspnea 05/07/2018 Respiratory No cough 05/07/2018 Respiratory No chest congestion 2018 Gastrointestinal No constipation 2018 Gastrointestinal No diarrhea 05/07/2018 Gastrointestinal No melena 05/07/2018 Gastrointestinal No hematochezia 2018 Gastrointestinal No nausea 05/07/2018 Gastrointestinal No vomiting 05/07/2018 Genitourinary/Nephrology hernia 2018 Neurologic No alteration of consciousness 05/07/2018 Neurologic No mental status change 2018 Dermatologic erythema 05/07/2018 Constitutional No recent illness 2018 Constitutional No chills 04/02/2018 Constitutional No diaphoresis 04/02/2018 Constitutional No fever 04/02/2018 Eyes No blindness 04/02/2018 Ears/Nose/Throat/Neck headache 2018 Ears/Nose/Throat/Neck No nasal discharge 04/02/2018 Cardiovascular No chest pain/pressure Cardiovascular No dyspnea 04/02/2018 Respiratory No cough 04/02/2018 Gastrointestinal No abdominal pain 2018 Neurologic No alteration of consciousness 04/02/2018 Neurologic No mental status change 2018 Psychiatric anxiety 04/02/2018 Psychiatric depression 04/02/2018 Psychiatric No suicidality 04/02/2018 Musculoskeletal bone pain 04/02/2018 Ears/Nose/Throat/Neck headache 2017 Constitutional No recent illness 2017 Constitutional No chills 02/22/2018 Constitutional No diaphoresis 02/22/2018 Constitutional No fever 02/22/2018 Eyes No blindness 02/22/2018 Ears/Nose/Throat/Neck No nasal discharge 02/22/2018 Cardiovascular No chest pain/pressure 08/2017 Cardiovascular No dyspnea 02/22/2018 Respiratory No cough 02/22/2018 Gastrointestinal No abdominal pain 2017 Dermatologic scar 02/22/2018 Neurologic No alteration of consciousness 02/22/2018 Neurologic No mental status change 2017 Psychiatric anxiety 02/22/2018 Psychiatric depression 02/22/2018 Psychiatric No suicidality 02/22/2018 Musculoskeletal bone pain 02/22/2018 Eyes No eye pain 02/01/2018 Eyes No vision change 02/01/2018 Ears/Nose/Throat/Neck No facial pain Ears/Nose/Throat/Neck No dizziness 2017 Ears/Nose/Throat/Neck headache 2017 Ears/Nose/Throat/Neck nasal allergies Ears/Nose/Throat/Neck postnasal drip Ears/Nose/Throat/Neck sinus congestion Cardiovascular No palpitations 2017 Cardiovascular No dyspnea 02/01/2018 Cardiovascular No chest pain/pressure Respiratory chest congestion 02/01/2018 Respiratory cough 02/01/2018 Gastrointestinal No abdominal pain 2017 Genitourinary/Nephrology No dysuria 02/01 Neurologic memory loss 02/01/2018 Neurologic headache 02/01/2018 Constitutional No recent illness 2017 Constitutional No chills 01/02/2018 Constitutional No diaphoresis 01/02/2018 Constitutional No fever 01/02/2018 Eyes No eye erythema 01/02/2018 Ears/Nose/Throat/Neck No nasal discharge 01/02/2018 Cardiovascular No chest pain/pressure Cardiovascular No dyspnea 01/02/2018 Respiratory No cough 01/02/2018 Gastrointestinal No abdominal pain 2017 Dermatologic scar 01/02/2018 Neurologic No alteration of consciousness 01/02/2018 Neurologic No mental status change 2017 Psychiatric anxiety 01/02/2018 Psychiatric depression 01/02/2018 Psychiatric No suicidality 01/02/2018 Constitutional No recent illness 2017 Constitutional fatigue 12/21/2017 Neurologic headache 12/21/2017 Neurologic dizziness 12/21/2017 Dermatologic sores 12/21/2017 Cardiovascular No chest pain/pressure 06/2017 Cardiovascular fatigue 12/21/2017 Respiratory No cough 12/21/2017 Respiratory No chest tightness 2017 Gastrointestinal No abdominal pain 2017 Constitutional No recent illness 2017 Constitutional No chills 11/22/2017 Constitutional fatigue 11/22/2017 Constitutional No fever 11/22/2017 Constitutional No insomnia 11/22/2017 Constitutional No malaise 11/22/2017 Eyes No vision change 11/22/2017 Ears/Nose/Throat/Neck No dental pain 07/2017 Ears/Nose/Throat/Neck No dizziness 2017 Ears/Nose/Throat/Neck No dysphagia 2017 Ears/Nose/Throat/Neck No headache 2017 Ears/Nose/Throat/Neck No hearing loss 07/2017 Ears/Nose/Throat/Neck No nasal allergies 11/22/2017 Ears/Nose/Throat/Neck No sore throat 07/2017 Ears/Nose/Throat/Neck No postnasal drip 11/22/2017 Ears/Nose/Throat/Neck No sinus congestion 11/22/2017 Cardiovascular No chest pain/pressure 07/2017 Cardiovascular No dyspnea 11/22/2017 Cardiovascular No edema 11/22/2017 Cardiovascular No exercise intolerance Cardiovascular No fatigue 11/22/2017 Cardiovascular No near-syncope/dizziness 11/22/2017 Respiratory No chest tightness 2017 Respiratory No cough 11/22/2017 Respiratory No dyspnea 11/22/2017 Respiratory No pedal edema 11/22/2017 Gastrointestinal abdominal pain 2017 Gastrointestinal No constipation 2017 Gastrointestinal No diarrhea 11/22/2017 Gastrointestinal No gastroesophageal reflux 11/22/2017 Gastrointestinal nausea 11/22/2017 Gastrointestinal No vomiting 11/22/2017 Genitourinary/Nephrology No dysuria 11/22 Genitourinary/Nephrology No nocturia 07/2017 Genitourinary/Nephrology No urinary incontinence 11/22/2017 Musculoskeletal No stiffness 11/22/2017 Musculoskeletal No swelling 11/22/2017 Musculoskeletal No muscle weakness 2017 Musculoskeletal No myalgias 11/22/2017 Dermatologic No rash 11/22/2017 Dermatologic No sores 11/22/2017 Neurologic No dizziness 11/22/2017 Neurologic No headache 11/22/2017 Neurologic No neck pain 11/22/2017 Neurologic No syncope 11/22/2017 Psychiatric No anxiety 11/22/2017 Psychiatric No depression 11/22/2017 Musculoskeletal arthralgia(s) 11/22/2017 Constitutional recent illness 07/19/2017 Constitutional No chills 07/19/2017 Constitutional No fatigue 07/19/2017 Constitutional No fever 07/19/2017 Constitutional No insomnia 07/19/2017 Constitutional No malaise 07/19/2017 Ears/Nose/Throat/Neck No dizziness 2017 Ears/Nose/Throat/Neck No dysphagia 2017 Ears/Nose/Throat/Neck No headache 2017 Ears/Nose/Throat/Neck No hearing loss 04/2017 Ears/Nose/Throat/Neck No sore throat 04/2017 Cardiovascular No chest pain/pressure 04/2017 Cardiovascular No dyspnea 07/19/2017 Cardiovascular No edema 07/19/2017 Cardiovascular No exercise intolerance Cardiovascular No fatigue 07/19/2017 Cardiovascular No near-syncope/dizziness 07/19/2017 Respiratory No chest tightness 2017 Respiratory No cough 07/19/2017 Respiratory No dyspnea 07/19/2017 Respiratory No pedal edema 07/19/2017 Gastrointestinal abdominal pain 2017 Gastrointestinal No constipation 2017 Gastrointestinal No diarrhea 07/19/2017 Gastrointestinal No gastroesophageal reflux 07/19/2017 Gastrointestinal No vomiting 07/19/2017 Genitourinary/Nephrology No dysuria 07/19 Genitourinary/Nephrology No nocturia 04/2017 Genitourinary/Nephrology No urinary incontinence 07/19/2017 Musculoskeletal No stiffness 07/19/2017 Musculoskeletal No swelling 07/19/2017 Musculoskeletal No muscle weakness 2017 Musculoskeletal No myalgias 07/19/2017 Dermatologic No rash 07/19/2017 Dermatologic No sores 07/19/2017 Neurologic No dizziness 07/19/2017 Neurologic No headache 07/19/2017 Neurologic No neck pain 07/19/2017 Neurologic No syncope 07/19/2017 Psychiatric No anxiety 07/19/2017 Psychiatric No depression 07/19/2017 Constitutional recent illness 06/05/2017 Constitutional No chills 06/05/2017 Constitutional No fatigue 06/05/2017 Constitutional No fever 06/05/2017 Constitutional No insomnia 06/05/2017 Constitutional No malaise 06/05/2017 Ears/Nose/Throat/Neck No dental pain Ears/Nose/Throat/Neck No dizziness 2017 Ears/Nose/Throat/Neck No dysphagia 2017 Ears/Nose/Throat/Neck No headache 2017 Ears/Nose/Throat/Neck No hearing loss Ears/Nose/Throat/Neck No nasal allergies 06/05/2017 Ears/Nose/Throat/Neck No sore throat Ears/Nose/Throat/Neck No postnasal drip 06/05/2017 Ears/Nose/Throat/Neck No sinus congestion 06/05/2017 Cardiovascular No chest pain/pressure Cardiovascular No dyspnea 06/05/2017 Cardiovascular No edema 06/05/2017 Cardiovascular No exercise intolerance Cardiovascular No fatigue 06/05/2017 Cardiovascular No near-syncope/dizziness 06/05/2017 Respiratory No chest tightness 2017 Respiratory No cough 06/05/2017 Respiratory No dyspnea 06/05/2017 Respiratory No pedal edema 06/05/2017 Gastrointestinal abdominal pain 2017 Gastrointestinal No constipation 2017 Gastrointestinal No diarrhea 06/05/2017 Gastrointestinal No gastroesophageal reflux 06/05/2017 Gastrointestinal nausea 06/05/2017 Gastrointestinal No vomiting 06/05/2017 Genitourinary/Nephrology No nocturia Genitourinary/Nephrology No urinary incontinence 06/05/2017 Musculoskeletal No stiffness 06/05/2017 Musculoskeletal No swelling 06/05/2017 Musculoskeletal No muscle weakness 2017 Musculoskeletal No myalgias 06/05/2017 Dermatologic No sores 06/05/2017 Psychiatric No anxiety 06/05/2017 Psychiatric No depression 06/05/2017 Constitutional recent illness 05/03/2017 Constitutional No chills 05/03/2017 Constitutional No fatigue 05/03/2017 Constitutional No fever 05/03/2017 Constitutional No insomnia 05/03/2017 Constitutional No malaise 05/03/2017 Eyes No vision change 05/03/2017 Ears/Nose/Throat/Neck No dental pain Ears/Nose/Throat/Neck No dizziness 2017 Ears/Nose/Throat/Neck No dysphagia 2017 Ears/Nose/Throat/Neck No headache 2017 Ears/Nose/Throat/Neck No hearing loss Ears/Nose/Throat/Neck No nasal allergies 05/03/2017 Ears/Nose/Throat/Neck No sore throat Ears/Nose/Throat/Neck No postnasal drip 05/03/2017 Ears/Nose/Throat/Neck No sinus congestion 05/03/2017 Cardiovascular No chest pain/pressure Cardiovascular No dyspnea 05/03/2017 Cardiovascular No edema 05/03/2017 Cardiovascular No exercise intolerance Cardiovascular No fatigue 05/03/2017 Cardiovascular No near-syncope/dizziness 05/03/2017 Respiratory No chest tightness 2017 Respiratory No cough 05/03/2017 Respiratory No dyspnea 05/03/2017 Respiratory No pedal edema 05/03/2017 Gastrointestinal abdominal pain 2017 Gastrointestinal No constipation 2017 Gastrointestinal No diarrhea 05/03/2017 Gastrointestinal No gastroesophageal reflux 05/03/2017 Gastrointestinal nausea 05/03/2017 Gastrointestinal No vomiting 05/03/2017 Genitourinary/Nephrology No dysuria 05/03 Genitourinary/Nephrology No nocturia Genitourinary/Nephrology No urinary incontinence 05/03/2017 Musculoskeletal No stiffness 05/03/2017 Musculoskeletal No swelling 05/03/2017 Musculoskeletal No muscle weakness 2017 Musculoskeletal No myalgias 05/03/2017 Dermatologic No rash 05/03/2017 Dermatologic No sores 05/03/2017 Neurologic No dizziness 05/03/2017 Neurologic No headache 05/03/2017 Neurologic No neck pain 05/03/2017 Neurologic No syncope 05/03/2017 Psychiatric No anxiety 05/03/2017 Psychiatric No depression 05/03/2017 Constitutional recent illness 02/27/2017 Constitutional No chills 02/27/2017 Constitutional No fatigue 02/27/2017 Constitutional No fever 02/27/2017 Constitutional No insomnia 02/27/2017 Constitutional No malaise 02/27/2017 Eyes No vision change 02/27/2017 Ears/Nose/Throat/Neck No dental pain 01/2017 Ears/Nose/Throat/Neck No dizziness 2016 Ears/Nose/Throat/Neck No dysphagia 2016 Ears/Nose/Throat/Neck No headache 2016 Ears/Nose/Throat/Neck No hearing loss 01/2017 Ears/Nose/Throat/Neck No nasal allergies 02/27/2017 Ears/Nose/Throat/Neck No sore throat 01/2017 Ears/Nose/Throat/Neck No postnasal drip 02/27/2017 Ears/Nose/Throat/Neck No sinus congestion 02/27/2017 Cardiovascular No chest pain/pressure 01/2017 Cardiovascular No dyspnea 02/27/2017 Cardiovascular No edema 02/27/2017 Cardiovascular No exercise intolerance Cardiovascular No fatigue 02/27/2017 Cardiovascular No near-syncope/dizziness 02/27/2017 Respiratory No chest tightness 2016 Respiratory No cough 02/27/2017 Respiratory No dyspnea 02/27/2017 Respiratory No pedal edema 02/27/2017 Gastrointestinal abdominal pain 2016 Gastrointestinal No constipation 2016 Gastrointestinal No diarrhea 02/27/2017 Gastrointestinal No gastroesophageal reflux 02/27/2017 Gastrointestinal nausea 02/27/2017 Gastrointestinal No vomiting 02/27/2017 Genitourinary/Nephrology No dysuria 02/27 Genitourinary/Nephrology No nocturia 01/2017 Genitourinary/Nephrology No urinary incontinence 02/27/2017 Musculoskeletal No stiffness 02/27/2017 Musculoskeletal No swelling 02/27/2017 Musculoskeletal No muscle weakness 2016 Musculoskeletal No myalgias 02/27/2017 Dermatologic No rash 02/27/2017 Dermatologic No sores 02/27/2017 Neurologic No dizziness 02/27/2017 Neurologic No headache 02/27/2017 Neurologic No neck pain 02/27/2017 Neurologic No syncope 02/27/2017 Psychiatric No anxiety 02/27/2017 Psychiatric No depression 02/27/2017 Constitutional recent illness 01/10/2017 Constitutional No chills 01/10/2017 Constitutional No fatigue 01/10/2017 Constitutional No fever 01/10/2017 Constitutional No insomnia 01/10/2017 Constitutional No malaise 01/10/2017 Eyes No vision change 01/10/2017 Ears/Nose/Throat/Neck No dental pain Ears/Nose/Throat/Neck No dizziness 2016 Ears/Nose/Throat/Neck No dysphagia 2016 Ears/Nose/Throat/Neck No headache 2016 Ears/Nose/Throat/Neck No hearing loss Ears/Nose/Throat/Neck No nasal allergies 01/10/2017 Ears/Nose/Throat/Neck No sore throat Ears/Nose/Throat/Neck No postnasal drip 01/10/2017 Ears/Nose/Throat/Neck No sinus congestion 01/10/2017 Cardiovascular No chest pain/pressure Cardiovascular No dyspnea 01/10/2017 Cardiovascular No edema 01/10/2017 Cardiovascular No exercise intolerance Cardiovascular No fatigue 01/10/2017 Cardiovascular No near-syncope/dizziness 01/10/2017 Respiratory No chest tightness 2016 Respiratory No cough 01/10/2017 Respiratory No dyspnea 01/10/2017 Respiratory No pedal edema 01/10/2017 Gastrointestinal abdominal pain 2016 Gastrointestinal No constipation 2016 Gastrointestinal No diarrhea 01/10/2017 Gastrointestinal No gastroesophageal reflux 01/10/2017 Gastrointestinal nausea 01/10/2017 Gastrointestinal No vomiting 01/10/2017 Genitourinary/Nephrology No dysuria 01/10 Genitourinary/Nephrology No nocturia Genitourinary/Nephrology No urinary incontinence 01/10/2017 Musculoskeletal No stiffness 01/10/2017 Musculoskeletal No swelling 01/10/2017 Musculoskeletal No muscle weakness 2016 Musculoskeletal No myalgias 01/10/2017 Dermatologic No rash 01/10/2017 Dermatologic No sores 01/10/2017 Neurologic No dizziness 01/10/2017 Neurologic No headache 01/10/2017 Neurologic No neck pain 01/10/2017 Neurologic No syncope 01/10/2017 Psychiatric No anxiety 01/10/2017 Psychiatric No depression 01/10/2017 Constitutional recent illness 12/05/2016 Constitutional No chills 12/05/2016 Constitutional No fatigue 12/05/2016 Constitutional No fever 12/05/2016 Constitutional No insomnia 12/05/2016 Constitutional No malaise 12/05/2016 Eyes No vision change 12/05/2016 Ears/Nose/Throat/Neck No dental pain Ears/Nose/Throat/Neck No dizziness 2016 Ears/Nose/Throat/Neck No dysphagia 2016 Ears/Nose/Throat/Neck No headache 2016 Ears/Nose/Throat/Neck No hearing loss Ears/Nose/Throat/Neck No nasal allergies 12/05/2016 Ears/Nose/Throat/Neck No sore throat Ears/Nose/Throat/Neck No postnasal drip 12/05/2016 Ears/Nose/Throat/Neck No sinus congestion 12/05/2016 Cardiovascular No chest pain/pressure Cardiovascular No dyspnea 12/05/2016 Cardiovascular No edema 12/05/2016 Cardiovascular No exercise intolerance Cardiovascular No fatigue 12/05/2016 Cardiovascular No near-syncope/dizziness 12/05/2016 Respiratory No chest tightness 2016 Respiratory No cough 12/05/2016 Respiratory No dyspnea 12/05/2016 Respiratory No pedal edema 12/05/2016 Gastrointestinal abdominal pain 2016 Gastrointestinal No constipation 2016 Gastrointestinal No diarrhea 12/05/2016 Gastrointestinal No gastroesophageal reflux 12/05/2016 Gastrointestinal nausea 12/05/2016 Gastrointestinal No vomiting 12/05/2016 Genitourinary/Nephrology No dysuria 12/05 Genitourinary/Nephrology No nocturia Genitourinary/Nephrology No urinary incontinence 12/05/2016 Musculoskeletal No stiffness 12/05/2016 Musculoskeletal No swelling 12/05/2016 Musculoskeletal No muscle weakness 2016 Musculoskeletal No myalgias 12/05/2016 Dermatologic No rash 12/05/2016 Dermatologic No sores 12/05/2016 Neurologic No dizziness 12/05/2016 Neurologic No headache 12/05/2016 Neurologic No neck pain 12/05/2016 Neurologic No syncope 12/05/2016 Psychiatric No anxiety 12/05/2016 Psychiatric No depression 12/05/2016 Physical Exam Exam Name System Name Item Name Status Result Effective Dates Notes Full Exam - General 1994 Constitutional general appearance Overall: well developed 05/07/2018 None Full Exam - General 1994 Constitutional general appearance Overall: in no acute distress 05/07/2018 None Full Exam - General 1994 Constitutional general appearance Overall: well nourished 05/07/2018 None Full Exam - General 1994 Eyes conjunctiva /eyelids Overall: eyelids normal 05/07/2018 None Full Exam - General 1994 Eyes conjunctiva /eyelids Overall: cornea clear 05/07/2018 None Full Exam - General 1994 Eyes conjunctiva /eyelids Overall: conjunctiva clear 05/07/2018 None Full Exam - General 1994 Ears/Nose/Throat lips/teeth/gingiva Overall: benign lips 05/07/2018 None Full Exam - General 1994 Respiratory auscultation Overall: breath sounds clear bilaterally 05/07/2018 None Full Exam - General 1994 Respiratory respiratory effort/rhythm Overall: normal rate 05/07/2018 None Full Exam - General 1994 Respiratory respiratory effort/rhythm Overall: no retractions 05/07/2018 None Full Exam - General 1994 Cardiovascular auscultation of heart Overall: regular rate 05/07/2018 None Full Exam - General 1994 Cardiovascular auscultation of heart Overall: normal heart sounds 05/07/2018 None Full Exam - General 1994 Abdomen hernia exam Abdominal hernia present: non- reducible 05/07/2018 None Full Exam - General 1994 Abdomen hernia exam Abdominal hernia present: tender 05/07/2018 None Full Exam - General 1994 Musculoskeletal head and neck Overall: head atraumatic 05/07/2018 None Full Exam - General 1994 Neurologic cranial nerves Overall: crainial nerves 2 - 12 grossly intact 05/07/2018 None Full Exam - General 1994 Psychiatric orientation/consciousness Overall: oriented to person, place and time 05/07/2018 None Full Exam - General 1994 Psychiatric mood and affect Overall: normal mood and affect 05/07/2018 None Full Exam - General 1994 Integument inspection of skin Location: abdomen 05/07/2018 periumbilical Full Exam - General 1994 Integument inspection of skin Pigmentation: erythematous 05/07/2018 None Full Exam - General 1994 Integument inspection of skin Consistency: indurated 05/07/2018 None Full Exam - General 1994 Constitutional general appearance Overall: well developed 04/02/2018 None Full Exam - General 1995 Constitutional general appearance Overall: in no acute distress 04/02/2018 None Full Exam - General 1995 Constitutional general appearance Overall: well nourished 04/02/2018 None Full Exam - General 1994 Eyes conjunctiva /eyelids Overall: conjunctiva clear 04/02/2018 None Full Exam - General 1994 Eyes conjunctiva /eyelids Overall: cornea clear 04/02/2018 None Full Exam - General 1994 Eyes conjunctiva /eyelids Overall: eyelids normal 04/02/2018 None Full Exam - General 1994 Ears/Nose/Throat lips/teeth/gingiva Overall: benign lips 04/02/2018 None Full Exam - General 1994 Ears/Nose/Throat oral cavity/pharynx/larynx Overall: oral mucosa clear 04/02/2018 None Full Exam - General 1994 Respiratory respiratory effort/rhythm Overall: no retractions 04/02/2018 None Full Exam - General 1994 Respiratory respiratory effort/rhythm Overall: normal rate 04/02/2018 None Full Exam - General 1994 Cardiovascular auscultation of heart Overall: regular rate 04/02/2018 None Full Exam - General 1994 Cardiovascular auscultation of heart Overall: normal heart sounds 04/02/2018 None Full Exam - General 1994 Cardiovascular auscultation of heart Overall: no murmurs 04/02/2018 None Full Exam - General 1994 Musculoskeletal lower extremity Palpation - foot: tender 04/02/2018 at base of left lateral foot 5th metatarsal Full Exam - General 1994 Musculoskeletal head and neck Overall: head atraumatic 04/02/2018 None Full Exam - General 1994 Neurologic cranial nerves Overall: crainial nerves 2 - 12 grossly intact 04/02/2018 None Full Exam - General 1994 Psychiatric orientation/consciousness Overall: oriented to person, place and time 04/02/2018 None Full Exam - General 1994 Psychiatric mood and affect Mood: flat 04/02/2018 None Full Exam - General 1994 Psychiatric mood and affect Mood: depressed 04/02/2018 None Full Exam - General 1994 Psychiatric mood and affect Mood: anxious 04/02/2018 None Full Exam - General 1994 Psychiatric appearance Overall: well-groomed, good eye contact 04/02/2018 None Full Exam - General 1994 Constitutional general appearance Overall: well developed 02/22/2018 None Full Exam - General 1994 Constitutional general appearance Overall: in no acute distress 02/22/2018 None Full Exam - General 1994 Constitutional general appearance Overall: well nourished 02/22/2018 None Full Exam - General 1994 Eyes conjunctiva /eyelids Overall: conjunctiva clear 02/22/2018 None Full Exam - General 1994 Eyes conjunctiva /eyelids Overall: cornea clear 02/22/2018 None Full Exam - General 1994 Eyes conjunctiva /eyelids Overall: eyelids normal 02/22/2018 None Full Exam - General 1994 Ears/Nose/Throat lips/teeth/gingiva Overall: benign lips 02/22/2018 None Full Exam - General 1994 Ears/Nose/Throat oral cavity/pharynx/larynx Overall: oral mucosa clear 02/22/2018 None Full Exam - General 1994 Respiratory respiratory effort/rhythm Overall: no retractions 02/22/2018 None Full Exam - General 1994 Respiratory respiratory effort/rhythm Overall: normal rate 02/22/2018 None Full Exam - General 1994 Musculoskeletal head and neck Overall: head atraumatic 02/22/2018 None Full Exam - General 1994 Integument inspection of skin Location: face 02/22/2018 healed scar to left chin Full Exam - General 1994 Neurologic cranial nerves Overall: crainial nerves 2 - 12 grossly intact 02/22/2018 None Full Exam - General 1994 Psychiatric orientation/consciousness Overall: oriented to person, place and time 02/22/2018 None Full Exam - General 1994 Psychiatric mood and affect Mood: flat 02/22/2018 None Full Exam - General 1994 Psychiatric mood and affect Mood: depressed 02/22/2018 None Full Exam - General 1994 Psychiatric mood and affect Mood: anxious 02/22/2018 None Full Exam - General 1994 Psychiatric appearance Overall: well-groomed, good eye contact 02/22/2018 None Full Exam - General 1994 Cardiovascular auscultation of heart Overall: regular rate 02/22/2018 None Full Exam - General 1994 Cardiovascular auscultation of heart Overall: normal heart sounds 02/22/2018 None Full Exam - General 1994 Cardiovascular auscultation of heart Overall: no murmurs 02/22/2018 None Full Exam - General 1994 Musculoskeletal lower extremity Palpation - foot: tender 02/22/2018 at base of left lateral foot 5th metatarsal Full Exam - General 1994 Constitutional general appearance Overall: well developed 02/01/2018 None Full Exam - General 1994 Constitutional general appearance Overall: in no acute distress 02/01/2018 None Full Exam - General 1994 Constitutional general appearance Overall: well nourished 02/01/2018 None Full Exam - General 1994 Eyes conjunctiva /eyelids Overall: conjunctiva clear 02/01/2018 None Full Exam - General 1994 Eyes conjunctiva /eyelids Overall: cornea clear 02/01/2018 None Full Exam - General 1994 Eyes conjunctiva /eyelids Overall: eyelids normal 02/01/2018 None Full Exam - General 1994 Ears/Nose/Throat lips/teeth/gingiva Overall: benign lips 02/01/2018 None Full Exam - General 1994 Ears/Nose/Throat oral cavity/pharynx/larynx Overall: oral mucosa clear 02/01/2018 None Full Exam - General 1994 Respiratory respiratory effort/rhythm Overall: no retractions 02/01/2018 None Full Exam - General 1994 Respiratory respiratory effort/rhythm Overall: normal rate 02/01/2018 None Full Exam - General 1994 Musculoskeletal head and neck Overall: head atraumatic 02/01/2018 None Full Exam - General 1994 Neurologic cranial nerves Overall: crainial nerves 2 - 12 grossly intact 02/01/2018 None Full Exam - General 1994 Psychiatric orientation/consciousness Overall: oriented to person, place and time 02/01/2018 None Full Exam - General 1994 Psychiatric mood and affect Mood: depressed 02/01/2018 None Full Exam - General 1994 Psychiatric mood and affect Mood: anxious 02/01/2018 None Full Exam - General 1994 Psychiatric appearance Overall: well-groomed, good eye contact 02/01/2018 None Full Exam - General 1994 Constitutional general appearance Overall: well developed 01/02/2018 None Full Exam - General 1994 Constitutional general appearance Overall: in no acute distress 01/02/2018 None Full Exam - General 1994 Constitutional general appearance Overall: well nourished 01/02/2018 None Full Exam - General 1994 Eyes conjunctiva /eyelids Overall: conjunctiva clear 01/02/2018 None Full Exam - General 1994 Eyes conjunctiva /eyelids Overall: cornea clear 01/02/2018 None Full Exam - General 1994 Eyes conjunctiva /eyelids Overall: eyelids normal 01/02/2018 None Full Exam - General 1994 Ears/Nose/Throat lips/teeth/gingiva Overall: benign lips 01/02/2018 None Full Exam - General 1994 Ears/Nose/Throat oral cavity/pharynx/larynx Overall: oral mucosa clear 01/02/2018 None Full Exam - General 1994 Respiratory respiratory effort/rhythm Overall: normal rate 01/02/2018 None Full Exam - General 1994 Respiratory respiratory effort/rhythm Overall: no retractions 01/02/2018 None Full Exam - General 1994 Musculoskeletal head and neck Overall: head atraumatic 01/02/2018 None Full Exam - General 1994 Integument inspection of skin Location: face 01/02/2018 healing scar to left chin Full Exam - General 1994 Neurologic cranial nerves Overall: crainial nerves 2 - 12 grossly intact 01/02/2018 None Full Exam - General 1994 Psychiatric orientation/consciousness Overall: oriented to person, place and time 01/02/2018 None Full Exam - General 1994 Psychiatric mood and affect Mood: flat 01/02/2018 None Full Exam - General 1994 Psychiatric mood and affect Mood: depressed 01/02/2018 None Full Exam - General 1994 Psychiatric mood and affect Mood: anxious 01/02/2018 None Full Exam - General 1994 Psychiatric appearance Overall: well-groomed, good eye contact 01/02/2018 None Full Exam - General 1994 Constitutional general appearance Overall: well nourished 12/21/2017 None Full Exam - General 1994 Constitutional general appearance Overall: well developed 12/21/2017 None Full Exam - General 1994 Constitutional general appearance Overall: in no acute distress 12/21/2017 bruising of face Full Exam - General 1994 Psychiatric orientation/consciousness Overall: oriented to person, place and time 12/21/2017 None Full Exam - General 1994 Psychiatric mood and affect Mood: happy 12/21/2017 None Full Exam - General 1994 Psychiatric mood and affect Overall: normal mood and affect 12/21/2017 None Full Exam - General 1994 Integument inspection of skin Location: face 12/21/2017 laceration left chin - [address] - star-shaped laceration Full Exam - General 1994 Cardiovascular auscultation of heart Overall: regular rate 12/21/2017 None Full Exam - General 1994 Cardiovascular auscultation of heart Overall: normal heart sounds 12/21/2017 None Full Exam - General 1994 Cardiovascular auscultation of heart Overall: no murmurs 12/21/2017 None Full Exam - General 1994 Respiratory respiratory effort/rhythm Overall: normal rate 12/21/2017 None Full Exam - General 1994 Respiratory respiratory effort/rhythm Overall: no retractions 12/21/2017 None Full Exam - General 1994 Respiratory auscultation Overall: breath sounds clear bilaterally 12/21/2017 None Full Exam - General 1994 Constitutional general appearance Development: well developed 11/22/2017 None Full Exam - General 1994 Constitutional general appearance Development: appears stated age 0911/22/2017 None Full Exam - General 1994 Constitutional general appearance Hygiene/Attention to Grooming: good hygiene 11/22/2017 None Full Exam - General 1994 Eyes conjunctiva /eyelids Overall: conjunctiva clear 11/22/2017 None Full Exam - General 1994 Eyes conjunctiva /eyelids Overall: cornea clear 11/22/2017 None Full Exam - General 1994 Eyes conjunctiva /eyelids Overall: eyelids normal 11/22/2017 None Full Exam - General 1994 Eyes pupils and irises Overall: pupils equal, round, reactive to light and accomodation 11/22/2017 None Full Exam - General 1994 Ears/Nose/Throat otoscopic exam Overall: external auditory canals clear 11/22/2017 None Full Exam - General 1994 Ears/Nose/Throat otoscopic exam Overall: tympanic membranes clear 11/22/2017 None Full Exam - General 1994 Ears/Nose/Throat lips/teeth/gingiva Overall: benign lips 11/22/2017 None Full Exam - General 1994 Ears/Nose/Throat lips/teeth/gingiva Overall: normal dentition 11/22/2017 None Full Exam - General 1994 Ears/Nose/Throat oral cavity/pharynx/larynx Overall: oral mucosa clear 11/22/2017 None Full Exam - General 1994 Ears/Nose/Throat oral cavity/pharynx/larynx Overall: oropharyngeal mucosa clear 11/22/2017 None Full Exam - General 1994 Ears/Nose/Throat oral cavity/pharynx/larynx Overall: hypopharynx benign 11/22/2017 None Full Exam - General 1994 Ears/Nose/Throat oral cavity/pharynx/larynx Overall: no masses 11/22/2017 None Full Exam - General 1994 Respiratory auscultation Overall: breath sounds clear bilaterally 11/22/2017 None Full Exam - General 1994 Respiratory respiratory effort/rhythm Overall: no retractions 11/22/2017 None Full Exam - General 1994 Respiratory respiratory effort/rhythm Overall: normal rate 11/22/2017 None Full Exam - General 1994 Cardiovascular extremities Overall: no clubbing 11/22/2017 None Full Exam - General 1994 Cardiovascular auscultation of heart Overall: regular rate 11/22/2017 None Full Exam - General 1994 Cardiovascular auscultation of heart Overall: normal heart sounds 11/22/2017 None Full Exam - General 1994 Abdomen abdominal exam Overall: normal bowel sounds 11/22/2017 None Full Exam - General 1994 Abdomen abdominal exam Periumbilical: non-tender to palpation 11/22/2017 reducible Full Exam - General 1994 Lymphatic neck nodes Overall: anterior cervical chain benign 11/22/2017 None Full Exam - General 1994 Lymphatic neck nodes Overall: posterior cervical chain benign 11/22/2017 None Full Exam - General 1994 Musculoskeletal spine, ribs and pelvis Overall: spine benign 11/22/2017 None Full Exam - General 1994 Musculoskeletal spine, ribs and pelvis Overall: sacroiliac joint benign 11/22/2017 None Full Exam - General 1994 Musculoskeletal spine, ribs and pelvis Overall: good posture 11/22/2017 None Full Exam - General 1994 Musculoskeletal head and neck Overall: head atraumatic 11/22/2017 None Full Exam - General 1994 Musculoskeletal head and neck Overall: cervical spine benign 11/22/2017 None Full Exam - General 1994 Psychiatric orientation/consciousness Overall: oriented to person, place and time 11/22/2017 None Full Exam - General 1994 Psychiatric mood and affect Overall: normal mood and affect 11/22/2017 None Full Exam - General 1994 Constitutional general appearance Development: well developed 07/19/2017 None Full Exam - General 1994 Constitutional general appearance Development: appears stated age 0507/19/2017 None Full Exam - General 1994 Constitutional general appearance Hygiene/Attention to Grooming: good hygiene 07/19/2017 None Full Exam - General 1994 Eyes conjunctiva /eyelids Overall: conjunctiva clear 07/19/2017 None Full Exam - General 1994 Eyes conjunctiva /eyelids Overall: cornea clear 07/19/2017 None Full Exam - General 1994 Eyes conjunctiva /eyelids Overall: eyelids normal 07/19/2017 None Full Exam - General 1994 Eyes pupils and irises Overall: pupils equal, round, reactive to light and accomodation 07/19/2017 None Full Exam - General 1994 Ears/Nose/Throat otoscopic exam Overall: external auditory canals clear 07/19/2017 None Full Exam - General 1994 Ears/Nose/Throat otoscopic exam Overall: tympanic membranes clear 07/19/2017 None Full Exam - General 1994 Ears/Nose/Throat lips/teeth/gingiva Overall: benign lips 07/19/2017 None Full Exam - General 1994 Ears/Nose/Throat lips/teeth/gingiva Overall: normal dentition 07/19/2017 None Full Exam - General 1994 Ears/Nose/Throat oral cavity/pharynx/larynx Overall: oral mucosa clear 07/19/2017 None Full Exam - General 1994 Ears/Nose/Throat oral cavity/pharynx/larynx Overall: oropharyngeal mucosa clear 07/19/2017 None Full Exam - General 1994 Ears/Nose/Throat oral cavity/pharynx/larynx Overall: hypopharynx benign 07/19/2017 None Full Exam - General 1994 Ears/Nose/Throat oral cavity/pharynx/larynx Overall: no masses 07/19/2017 None Full Exam - General 1994 Respiratory auscultation Overall: breath sounds clear bilaterally 07/19/2017 None Full Exam - General 1994 Respiratory respiratory effort/rhythm Overall: no retractions 07/19/2017 None Full Exam - General 1994 Respiratory respiratory effort/rhythm Overall: normal rate 07/19/2017 None Full Exam - General 1994 Cardiovascular extremities Overall: no clubbing 07/19/2017 None Full Exam - General 1994 Cardiovascular auscultation of heart Overall: regular rate 07/19/2017 None Full Exam - General 1994 Cardiovascular auscultation of heart Overall: normal heart sounds 07/19/2017 None Full Exam - General 1994 Abdomen abdominal exam Overall: normal bowel sounds 07/19/2017 None Full Exam - General 1994 Abdomen abdominal exam Periumbilical: non-tender to palpation 07/19/2017 reducible Full Exam - General 1994 Lymphatic neck nodes Overall: anterior cervical chain benign 07/19/2017 None Full Exam - General 1994 Lymphatic neck nodes Overall: posterior cervical chain benign 07/19/2017 None Full Exam - General 1994 Musculoskeletal spine, ribs and pelvis Overall: spine benign 07/19/2017 None Full Exam - General 1994 Musculoskeletal spine, ribs and pelvis Overall: sacroiliac joint benign 07/19/2017 None Full Exam - General 1994 Musculoskeletal spine, ribs and pelvis Overall: good posture 07/19/2017 None Full Exam - General 1994 Musculoskeletal head and neck Overall: head atraumatic 07/19/2017 None Full Exam - General 1994 Musculoskeletal head and neck Overall: cervical spine benign 07/19/2017 None Full Exam - General 1994 Integument inspection of skin Overall: no rash, lesions 07/19/2017 None Full Exam - General 1994 Psychiatric orientation/consciousness Overall: oriented to person, place and time 07/19/2017 None Full Exam - General 1994 Psychiatric mood and affect Overall: normal mood and affect 07/19/2017 None Full Exam - General 1994 Constitutional general appearance Development: well developed 06/05/2017 None Full Exam - General 1994 Constitutional general appearance Development: appears stated age 0306/05/2017 None Full Exam - General 1994 Constitutional general appearance Hygiene/Attention to Grooming: good hygiene 06/05/2017 None Full Exam - General 1994 Eyes pupils and irises Overall: pupils equal, round, reactive to light and accomodation 06/05/2017 None Full Exam - General 1994 Ears/Nose/Throat oral cavity/pharynx/larynx Overall: oral mucosa clear 06/05/2017 None Full Exam - General 1994 Ears/Nose/Throat oral cavity/pharynx/larynx Overall: oropharyngeal mucosa clear 06/05/2017 None Full Exam - General 1994 Ears/Nose/Throat oral cavity/pharynx/larynx Overall: hypopharynx benign 06/05/2017 None Full Exam - General 1994 Ears/Nose/Throat oral cavity/pharynx/larynx Overall: no masses 06/05/2017 None Full Exam - General 1994 Respiratory auscultation Overall: breath sounds clear bilaterally 06/05/2017 None Full Exam - General 1994 Respiratory respiratory effort/rhythm Overall: no retractions 06/05/2017 None Full Exam - General 1994 Respiratory respiratory effort/rhythm Overall: normal rate 06/05/2017 None Full Exam - General 1994 Cardiovascular extremities Overall: no clubbing 06/05/2017 None Full Exam - General 1994 Cardiovascular auscultation of heart Overall: regular rate 06/05/2017 None Full Exam - General 1994 Cardiovascular auscultation of heart Overall: normal heart sounds 06/05/2017 None Full Exam - General 1994 Abdomen abdominal exam Overall: normal bowel sounds 06/05/2017 None Full Exam - General 1994 Abdomen abdominal exam Periumbilical: non-tender to palpation 06/05/2017 reducible Full Exam - General 1994 Musculoskeletal spine, ribs and pelvis Overall: spine benign 06/05/2017 None Full Exam - General 1994 Musculoskeletal spine, ribs and pelvis Overall: sacroiliac joint benign 06/05/2017 None Full Exam - General 1994 Musculoskeletal spine, ribs and pelvis Overall: good posture 06/05/2017 None Full Exam - General 1994 Musculoskeletal head and neck Overall: head atraumatic 06/05/2017 None Full Exam - General 1994 Musculoskeletal head and neck Overall: cervical spine benign 06/05/2017 None Full Exam - General 1994 Psychiatric orientation/consciousness Overall: oriented to person, place and time 06/05/2017 None Full Exam - General 1994 Psychiatric mood and affect Overall: normal mood and affect 06/05/2017 None Full Exam - General 1994 Constitutional general appearance Development: well developed 05/03/2017 None Full Exam - General 1994 Constitutional general appearance Development: appears stated age 0205/03/2017 None Full Exam - General 1994 Constitutional general appearance Hygiene/Attention to Grooming: good hygiene 05/03/2017 None Full Exam - General 1994 Eyes conjunctiva /eyelids Overall: conjunctiva clear 05/03/2017 None Full Exam - General 1994 Eyes conjunctiva /eyelids Overall: cornea clear 05/03/2017 None Full Exam - General 1994 Eyes conjunctiva /eyelids Overall: eyelids normal 05/03/2017 None Full Exam - General 1994 Eyes pupils and irises Overall: pupils equal, round, reactive to light and accomodation 05/03/2017 None Full Exam - General 1994 Ears/Nose/Throat otoscopic exam Overall: external auditory canals clear 05/03/2017 None Full Exam - General 1994 Ears/Nose/Throat otoscopic exam Overall: tympanic membranes clear 05/03/2017 None Full Exam - General 1994 Ears/Nose/Throat lips/teeth/gingiva Overall: benign lips 05/03/2017 None Full Exam - General 1994 Ears/Nose/Throat lips/teeth/gingiva Overall: normal dentition 05/03/2017 None Full Exam - General 1994 Ears/Nose/Throat oral cavity/pharynx/larynx Overall: oral mucosa clear 05/03/2017 None Full Exam - General 1994 Ears/Nose/Throat oral cavity/pharynx/larynx Overall: oropharyngeal mucosa clear 05/03/2017 None Full Exam - General 1994 Ears/Nose/Throat oral cavity/pharynx/larynx Overall: hypopharynx benign 05/03/2017 None Full Exam - General 1994 Ears/Nose/Throat oral cavity/pharynx/larynx Overall: no masses 05/03/2017 None Full Exam - General 1994 Respiratory auscultation Overall: breath sounds clear bilaterally 05/03/2017 None Full Exam - General 1994 Respiratory respiratory effort/rhythm Overall: no retractions 05/03/2017 None Full Exam - General 1994 Respiratory respiratory effort/rhythm Overall: normal rate 05/03/2017 None Full Exam - General 1994 Cardiovascular extremities Overall: no clubbing 05/03/2017 None Full Exam - General 1994 Cardiovascular auscultation of heart Overall: regular rate 05/03/2017 None Full Exam - General 1994 Cardiovascular auscultation of heart Overall: normal heart sounds 05/03/2017 None Full Exam - General 1994 Abdomen abdominal exam Overall: normal bowel sounds 05/03/2017 None Full Exam - General 1994 Abdomen abdominal exam Periumbilical: non-tender to palpation 05/03/2017 reducible Full Exam - General 1994 Lymphatic neck nodes Overall: anterior cervical chain benign 05/03/2017 None Full Exam - General 1994 Lymphatic neck nodes Overall: posterior cervical chain benign 05/03/2017 None Full Exam - General 1994 Musculoskeletal spine, ribs and pelvis Overall: spine benign 05/03/2017 None Full Exam - General 1994 Musculoskeletal spine, ribs and pelvis Overall: sacroiliac joint benign 05/03/2017 None Full Exam - General 1994 Musculoskeletal spine, ribs and pelvis Overall: good posture 05/03/2017 None Full Exam - General 1994 Musculoskeletal head and neck Overall: head atraumatic 05/03/2017 None Full Exam - General 1994 Musculoskeletal head and neck Overall: cervical spine benign 05/03/2017 None Full Exam - General 1994 Integument inspection of skin Overall: no rash, lesions 05/03/2017 None Full Exam - General 1994 Psychiatric orientation/consciousness Overall: oriented to person, place and time 05/03/2017 None Full Exam - General 1994 Psychiatric mood and affect Overall: normal mood and affect 05/03/2017 None Full Exam - General 1994 Constitutional general appearance Development: well developed 02/27/2017 None Full Exam - General 1994 Constitutional general appearance Development: appears stated age 1202/27/2017 None Full Exam - General 1994 Constitutional general appearance Hygiene/Attention to Grooming: good hygiene 02/27/2017 None Full Exam - General 1994 Eyes conjunctiva /eyelids Overall: conjunctiva clear 02/27/2017 None Full Exam - General 1994 Eyes conjunctiva /eyelids Overall: cornea clear 02/27/2017 None Full Exam - General 1994 Eyes conjunctiva /eyelids Overall: eyelids normal 02/27/2017 None Full Exam - General 1994 Eyes pupils and irises Overall: pupils equal, round, reactive to light and accomodation 02/27/2017 None Full Exam - General 1994 Ears/Nose/Throat otoscopic exam Overall: external auditory canals clear 02/27/2017 None Full Exam - General 1994 Ears/Nose/Throat otoscopic exam Overall: tympanic membranes clear 02/27/2017 None Full Exam - General 1994 Ears/Nose/Throat lips/teeth/gingiva Overall: benign lips 02/27/2017 None Full Exam - General 1994 Ears/Nose/Throat lips/teeth/gingiva Overall: normal dentition 02/27/2017 None Full Exam - General 1994 Ears/Nose/Throat oral cavity/pharynx/larynx Overall: oral mucosa clear 02/27/2017 None Full Exam - General 1994 Ears/Nose/Throat oral cavity/pharynx/larynx Overall: oropharyngeal mucosa clear 02/27/2017 None Full Exam - General 1994 Ears/Nose/Throat oral cavity/pharynx/larynx Overall: hypopharynx benign 02/27/2017 None Full Exam - General 1994 Ears/Nose/Throat oral cavity/pharynx/larynx Overall: no masses 02/27/2017 None Full Exam - General 1994 Respiratory auscultation Overall: breath sounds clear bilaterally 02/27/2017 None Full Exam - General 1994 Respiratory respiratory effort/rhythm Overall: no retractions 02/27/2017 None Full Exam - General 1994 Respiratory respiratory effort/rhythm Overall: normal rate 02/27/2017 None Full Exam - General 1994 Cardiovascular extremities Overall: no clubbing 02/27/2017 None Full Exam - General 1994 Cardiovascular auscultation of heart Overall: regular rate 02/27/2017 None Full Exam - General 1994 Cardiovascular auscultation of heart Overall: normal heart sounds 02/27/2017 None Full Exam - General 1994 Abdomen abdominal exam Overall: normal bowel sounds 02/27/2017 None Full Exam - General 1994 Abdomen abdominal exam Periumbilical: non-tender to palpation 02/27/2017 reducible Full Exam - General 1994 Musculoskeletal spine, ribs and pelvis Overall: spine benign 02/27/2017 None Full Exam - General 1994 Musculoskeletal spine, ribs and pelvis Overall: sacroiliac joint benign 02/27/2017 None Full Exam - General 1994 Musculoskeletal spine, ribs and pelvis Overall: good posture 02/27/2017 None Full Exam - General 1994 Musculoskeletal head and neck Overall: head atraumatic 02/27/2017 None Full Exam - General 1994 Musculoskeletal head and neck Overall: cervical spine benign 02/27/2017 None Full Exam - General 1994 Psychiatric orientation/consciousness Overall: oriented to person, place and time 02/27/2017 None Full Exam - General 1994 Psychiatric mood and affect Overall: normal mood and affect 02/27/2017 None Full Exam - General 1994 Lymphatic neck nodes Overall: anterior cervical chain benign 02/27/2017 None Full Exam - General 1994 Lymphatic neck nodes Overall: posterior cervical chain benign 02/27/2017 None Full Exam - General 1994 Integument inspection of skin Overall: no rash, lesions 02/27/2017 None Full Exam - General 1994 Constitutional general appearance Development: well developed 01/10/2017 None Full Exam - General 1994 Constitutional general appearance Development: appears stated age 1001/10/2017 None Full Exam - General 1994 Constitutional general appearance Hygiene/Attention to Grooming: good hygiene 01/10/2017 None Full Exam - General 1994 Eyes conjunctiva /eyelids Overall: conjunctiva clear 01/10/2017 None Full Exam - General 1994 Eyes conjunctiva /eyelids Overall: cornea clear 01/10/2017 None Full Exam - General 1994 Eyes conjunctiva /eyelids Overall: eyelids normal 01/10/2017 None Full Exam - General 1994 Eyes pupils and irises Overall: pupils equal, round, reactive to light and accomodation 01/10/2017 None Full Exam - General 1994 Ears/Nose/Throat otoscopic exam Overall: external auditory canals clear 01/10/2017 None Full Exam - General 1994 Ears/Nose/Throat otoscopic exam Overall: tympanic membranes clear 01/10/2017 None Full Exam - General 1994 Ears/Nose/Throat lips/teeth/gingiva Overall: benign lips 01/10/2017 None Full Exam - General 1994 Ears/Nose/Throat lips/teeth/gingiva Overall: normal dentition 01/10/2017 None Full Exam - General 1994 Ears/Nose/Throat oral cavity/pharynx/larynx Overall: oral mucosa clear 01/10/2017 None Full Exam - General 1994 Ears/Nose/Throat oral cavity/pharynx/larynx Overall: oropharyngeal mucosa clear 01/10/2017 None Full Exam - General 1994 Ears/Nose/Throat oral cavity/pharynx/larynx Overall: hypopharynx benign 01/10/2017 None Full Exam - General 1994 Ears/Nose/Throat oral cavity/pharynx/larynx Overall: no masses 01/10/2017 None Full Exam - General 1994 Respiratory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
--- OUTSIDE RECORDS SUMMARY | 2018-05-10 18:32 | XMS REPORT | CCD ---
Author Author [facility] Organization [facility] Address [address] [place] [address] Phone Care Team Providers Care Insole Filler Name Role Phone PP Unavailable CCM Unavailable Summary Purpose Interface Exchange Insurance Providers Payer name Policy type / Coverage type Covered democrat ID Effective Begin Date Effective End Date WPS Medicare Part B Medicare Part B [id number] Unknown AARP Medicare Part B [id number] Unknown Family history Father Diagnosis Age At Onset brain cancer Unknown Skin cancer Unknown Mother Diagnosis Age At Onset Cancer Unknown Daughter Diagnosis Age At Onset Celiac disease Unknown Social History Social History Element Codes Description Effective Dates Marital status Unknown Single 12/05/2016 Number of children Unknown 2 12/05/2016 Employment Unknown 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 [...] -9: 719.46 ICD-10: M25.561 Active 05/03/2017 Unknown Umbilical hernia without obstruction or gangrene ICD-9: 553.1 ICD-10: K42.9 Active 12/05/2016 Unknown Rash and other nonspecific skin eruption [...] Problems Condition Codes Effective Dates Condition Status 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 [...] ICD -9: 719.46 ICD-10: M25.561 05/03/2017 Active Umbilical hernia without obstruction or gangrene ICD-9: 553.1 ICD-10: K42.9 12/05/2016 Active Rash and other nonspecific skin eruption [...] Fill Instructions temazepam 7.5 mg capsule RxNorm: 731669 1 Capsule(s) PO QHS 02/15/2018 Inactive temazepam 7.5 mg capsule RxNorm: 536253 1 Capsule(s) PO QHS 01/16/2018 Inactive Restoril 15 mg capsule RxNorm: 981623 1 Capsule(s) PO daily 01/31/2018 Inactive Restoril 7.5 mg capsule RxNorm: 069725 1 Capsule(s) PO daily 01/07/2018 Inactive Restoril 7.5 mg capsule RxNorm: 371062 1 Capsule(s) PO daily 01/09/2018 Inactive Lexapro 10 mg tablet RxNorm: 974654 1 Tablet(s) PO QHS 201701/31/2018 Inactive Voltaren 1 % topical gel RxNorm: 748139 4 Gram(s) TOP QID as needed 11/22/2017 No Stop Date Active Viagra 100 mg tablet RxNorm: 647703 1 Tablet(s) PO PRN sexual encounter 10/02/2017 No Stop Date Active promethazine 6.25 mg-codeine 10 mg/5 mL syrup RxNorm: 914279 5-10 Milliliter(s) PO Q6 as needed 10/02/2017 12/20/2017 Inactive Keflex 500 mg capsule RxNorm: 356605 1 Capsule(s) PO TID 201707/25/2017 Inactive Pepcid 20 mg tablet RxNorm: 280376 1 Tablet(s) PO BID 201707/18/2017 Inactive Carafate 1 gram tablet RxNorm: 724371 1 Tablet(s) PO QID 201707/04/2017 Inactive Pepcid 20 mg tablet RxNorm: 997070 1 Tablet(s) PO BID 201706/04/2017 Inactive mupirocin 2 % topical cream RxNorm: 348047 1 Application TOP BID 02/27/2017 03/08/2017 Inactive meclizine 25 mg tablet RxNorm: 754902 1 Tablet(s) PO TID as needed nausea 01/27/2017 03/27/2017 Inactive meclizine 25 mg tablet RxNorm: 346339 1 Tablet(s) PO TID as needed nausea 01/27/2017 01/26/2017 Inactive scopolamine 1 mg over 3 days transdermal patch RxNorm: 330343 1 TD Q72H 01/10/2017 02/26/2017 Inactive ibuprofen 200 mg tablet RxNorm: 606706 1 Tablet(s) PO No Start Date Active vitamin E (dl, acetate) oral RxNorm: oral No Start Date Active Viagra 100 mg tablet RxNorm: 044223 1 Tablet(s) PO PRN sexual encounter No Start Date 10/01/2017 Inactive promethazine 6.25 mg-codeine 10 mg/5 mL syrup RxNorm: 367099 5-10 Milliliter(s) PO Q6 as needed No Start Date 10/01/2017 Inactive Medication Administered No Medication Administered data Immunizations No Immunization data Assessments Condition Codes Effective Dates Pain in left foot ICD-10: M79.672 ICD-9: [...] Visit Reason For Visit Effective Dates Notes foot pain 04/02/2018 foot pain 02/22/2018 memory loss 02/01/2018 wound follow up 01/02/2018 office procedure 12/21/2017 abdominal pain 11/22/2017 abdominal pain 07/19/2017 abdominal pain 06/05/2017 arthralgia(s) 05/03/2017 nausea 02/27/2017 nausea 01/10/2017 nausea 12/05/2016 Results Observation Observation Code Item Item Code Result Date Glucose Ord14 GLUCOSE 102 mg/dL 04/06/2018 Lipid Ord30 CHOL 238 mg/dL 04/06/2018 Lipid Ord30 HDL 59.0 mg/dl 04/06/2018 Lipid Ord30 TRIG 171 mg/dL 04/06/2018 Lipid Ord30 LDL 145 mg/dL 04/06/2018 Lipid Ord30 C/HDL 4.0 Ratio 04/06/2018 Comp Metabolic Rae734 NA 142 mEq/L 03/26/2018 Comp Metabolic Rgg010 K 4.5 mEq/L 03/26/2018 Comp Metabolic Gem019 CL 107 mEq/L 03/26/2018 Comp Metabolic Njs792 CO2 26.0 mEq/L 03/26/2018 Comp Metabolic Wvu071 ANION GAP 14 03/26/2018 Comp Metabolic Wtm817 GLUCOSE 141 mg/dL 03/26/2018 Comp Metabolic Bgj026 Creat 0.9 mg/dL 03/26/2018 Comp Metabolic Ult885 eGFR 86 ml/min/1.73m2 03/26/2018 Comp Metabolic Fof090 BUN 17 mg/dL 03/26/2018 Comp Metabolic Etj725 B/C Ratio 18.5 Ratio 03/26/2018 Comp Metabolic Gsh385 CALCIUM 8.7 mg/dL 03/26/2018 Comp Metabolic Kuy509 ALK PHOS 90 U/L 03/26/2018 Comp Metabolic Jzn727 AST(SGOT) 35 U/L 03/26/2018 Comp Metabolic Xme466 ALT(SGPT) 48 U/L 03/26/2018 Comp Metabolic Gtb091 BILI T 0.4 mg/dL 03/26/2018 Comp Metabolic Wie388 ALBUMIN 4.0 g/dL 03/26/2018 Comp Metabolic Owd350 TPRO 5.9 g/dL 03/26/2018 Comp Metabolic Iru030 GLOB 1.9 g/dL 03/26/2018 Comp Metabolic Bvc097 A/G Ratio 2.1 Ratio 03/26/2018 Comp Metabolic Hjz665 Osmo 287 mOsmo 03/26/2018 Cbc With Differential [...] 32.5 pg 03/26/2018 Cbc With Differential Ord2 [place]% 9.3 % 03/26/2018 Cbc With Differential Ord2 [...] 0.52 K/ul 03/26/2018 Cbc With Differential Ord2 [place] ABS# 0.3 K/ul 03/26/2018 Cbc With Differential Ord2 Eos ABS# 0.1 K/ul 03/26/2018 Cbc With Differential Ord2 Baso ABS# 0.0 K/ul 03/26/2018 Ldh Ord92 LDH 151 U/L 03/26/2018 Comp Metabolic Qrd648 NA 139 mEq/L 12/18/2017 Comp Metabolic Feo524 K 4.6 mEq/L 12/18/2017 Comp Metabolic Wpy092 CL 105 mEq/L 12/18/2017 Comp Metabolic Kgg467 CO2 27.0 mEq/L 12/18/2017 Comp Metabolic Owq185 ANION GAP 12 12/18/2017 Comp Metabolic Cpq902 GLUCOSE 126 mg/dL 12/18/2017 Comp Metabolic Rfz503 Creat 0.9 mg/dL 12/18/2017 Comp Metabolic Psh761 eGFR 89 ml/min/1.73m2 12/18/2017 Comp Metabolic Pty202 BUN 19 mg/dL 12/18/2017 Comp Metabolic Hxg028 B/C Ratio 21.3 Ratio 12/18/2017 Comp Metabolic Bws518 CALCIUM 8.8 mg/dL 12/18/2017 Comp Metabolic Bnt686 ALK PHOS 99 U/L 12/18/2017 Comp Metabolic Oeq200 AST(SGOT) 31 U/L 12/18/2017 Comp Metabolic Wnj382 ALT(SGPT) 46 U/L 12/18/2017 Comp Metabolic Nty437 BILI T 0.5 mg/dL 12/18/2017 Comp Metabolic Trz041 ALBUMIN 3.9 g/dL 12/18/2017 Comp Metabolic Oup133 TPRO 5.8 g/dL 12/18/2017 Comp Metabolic Kwv654 GLOB 2.0 g/dL 12/18/2017 Comp Metabolic Ale699 A/G Ratio 2.0 Ratio 12/18/2017 Comp Metabolic Scd274 Osmo 281 mOsmo 12/18/2017 Magnesium Ord90 Mag [...] 32.3 pg 12/18/2017 Cbc With Differential Ord2 [place]% 6.8 % 12/18/2017 Cbc With Differential Ord2 [...] 0.53 K/ul 12/18/2017 Cbc With Differential Ord2 [place] ABS# 0.3 K/ul 12/18/2017 Cbc With Differential [...] 32.1 pg 09/22/2017 Cbc With Differential Ord2 [place]% 11.2 % 09/22/2017 Cbc With Differential Ord2 [...] 0.46 K/ul 09/22/2017 Cbc With Differential Ord2 [place] ABS# 0.4 K/ul 09/22/2017 Cbc With Differential Ord2 Eos ABS# 0.1 K/ul 09/22/2017 Cbc With Differential Ord2 Baso ABS# 0.0 K/ul 09/22/2017 Uric Acid Ord77 Uric A 5.5 mg/dL 09/22/2017 Ldh Ord92 LDH 130 U/L 09/22/2017 Comp Metabolic Kum419 NA 141 mEq/L 09/22/2017 Comp Metabolic Bbh898 K 5.2 mEq/L 09/22/2017 Comp Metabolic Wjb776 CL 106 mEq/L 09/22/2017 Comp Metabolic Auu992 CO2 29.0 mEq/L 09/22/2017 Comp Metabolic Aid775 ANION GAP 11 09/22/2017 Comp Metabolic Imh251 GLUCOSE 115 mg/dL 09/22/2017 Comp Metabolic Yut474 Creat 0.9 mg/dL 09/22/2017 Comp Metabolic Yrh011 eGFR 88 ml/min/1.73m2 09/22/2017 Comp Metabolic Qgd890 BUN 18 mg/dL 09/22/2017 Comp Metabolic Qbb575 B/C Ratio 20.0 Ratio 09/22/2017 Comp Metabolic Jcd950 CALCIUM 8.7 mg/dL 09/22/2017 Comp Metabolic Hny516 ALK PHOS 103 U/L 09/22/2017 Comp Metabolic Pqo250 AST(SGOT) 32 U/L 09/22/2017 Comp Metabolic Nfj803 ALT(SGPT) 51 U/L 09/22/2017 Comp Metabolic Ebu097 BILI T 0.4 mg/dL 09/22/2017 Comp Metabolic Cmi659 ALBUMIN 3.8 g/dL 09/22/2017 Comp Metabolic Lvs347 TPRO 5.8 g/dL 09/22/2017 Comp Metabolic Wuy203 GLOB 2.0 g/dL 09/22/2017 Comp Metabolic Heu872 A/G Ratio 1.8 Ratio 09/22/2017 Comp Metabolic Tuy623 Osmo 284 mOsmo 09/22/2017 Comp Metabolic Huq228 NA 140 mEq/L 06/27/2017 Comp Metabolic Dpd909 K 4.6 mEq/L 06/27/2017 Comp Metabolic Szb587 CL 105 mEq/L 06/27/2017 Comp Metabolic Owh647 CO2 30.0 mEq/L 06/27/2017 Comp Metabolic Kgr354 ANION GAP 10 06/27/2017 Comp Metabolic Koi774 GLUCOSE 95 mg/dL 06/27/2017 Comp Metabolic Elr535 Creat 0.8 mg/dL 06/27/2017 Comp Metabolic Emn373 eGFR 95 ml/min/1.73m2 06/27/2017 Comp Metabolic Bae189 BUN 14 mg/dL 06/27/2017 Comp Metabolic Poo819 B/C Ratio 16.7 Ratio 06/27/2017 Comp Metabolic Brt885 CALCIUM 9.1 mg/dL 06/27/2017 Comp Metabolic Vix654 ALK PHOS 129 U/L 06/27/2017 Comp Metabolic Rci602 AST(SGOT) 29 U/L 06/27/2017 Comp Metabolic Ukj872 ALT(SGPT) 33 U/L 06/27/2017 Comp Metabolic Pwy876 BILI T 0.5 mg/dL 06/27/2017 Comp Metabolic Lau482 ALBUMIN 3.9 g/dL 06/27/2017 Comp Metabolic Ofi909 TPRO 6.0 g/dL 06/27/2017 Comp Metabolic Rqw310 GLOB 2.1 g/dL 06/27/2017 Comp Metabolic Ikg730 A/G Ratio 1.9 Ratio 06/27/2017 Comp Metabolic Pcb403 Osmo 280 mOsmo 06/27/2017 Cbc With Differential Ord2 WBC 3.66 K/ul 06/27/2017 Cbc With Differential Ord2 RBC 4.64 M/ul 06/27/2017 Cbc With Differential Ord2 HGB 14.8 g/dl 06/27/2017 Cbc With Differential Ord2 HCT 43.4 % 06/27/2017 Cbc With Differential Ord2 Neut% 74.4 % 06/27/2017 Cbc With Differential Ord2 MCV 93.5 fl 06/27/2017 Cbc With Differential Ord2 Lymph% 13.7 % 06/27/2017 Cbc With Differential Ord2 [place]% 9.8 % 06/27/2017 Cbc With Differential Ord2 MCH 31.9 pg 06/27/2017 Cbc With Differential Ord2 MCHC 34.1 pg 06/27/2017 Cbc With Differential Ord2 Eos% 1.6 % 06/27/2017 Cbc With Differential Ord2 Baso% 0.5 % 06/27/2017 Cbc With Differential Ord2 PLT 191 K/ul 06/27/2017 Cbc With Differential Ord2 RDW 13.8 % 06/27/2017 Cbc With Differential Ord2 Neut ABS# 2.72 K/ul 06/27/2017 Cbc With Differential Ord2 Lymph ABS# 0.50 K/ul 06/27/2017 Cbc With Differential Ord2 [place] ABS# 0.4 K/ul 06/27/2017 Cbc With Differential Ord2 Eos ABS# 0.1 K/ul 06/27/2017 Cbc With Differential Ord2 Baso ABS# 0.0 K/ul 06/27/2017 Ldh Ord92 LDH 173 U/L 06/27/2017 Uric Acid Ord77 Uric A 5.1 mg/dL 06/27/2017 [facility] 40542 IMMUNOGLOBULIN A-SERUM . 06/20/2017 [facility] 72704 IMMUNOGLOBULIN A-SERUM 89 mg/dL 06/20/2017 [facility] 95018 GLIADIN ANTIBODY, IGG . 06/20/2017 [facility] 18502 GLIADIN ANTIBODY, IGG 3 EU/mL 06/20/2017 [facility] 52816 GLIADIN ANTIBODY, IGA . 06/20/2017 [facility] 04203 GLIADIN ANTIBODY, IGA <9 EU/mL 06/20/2017 [facility] 72040 TISSUE TRANSGLUTAMINASE AB, IGG . 06/20/2017 [facility] 70088 TISSUE TRANSGLUTAMINASE-G 5 EU/mL 06/20/2017 [facility] 56131 TISSUE TRANS. AB IGA W/REFLEX . 06/20/2017 [facility] 14267 TISSUE TRANSGLUTAMINASE-A 6 EU/mL 06/20/2017 Allergen Profile, Comprehensive Food 52700 IMMUNOGLOBULIN E 3 IU/mL 06/19/2017 Allergen Profile, Comprehensive Food 36932 BACON'S YEAST <0.10 kU/L 06/19/2017 Allergen Profile, Comprehensive Food 63267 BARLEY <0.10 kU/L 06/19/2017 Allergen Profile, Comprehensive Food 05563 BEEF <0.10 kU/L 04/2017 Allergen Profile, Comprehensive Food 82546 CHICKEN MEAT <0.10 kU/L 06/19/2017 Allergen Profile, Comprehensive Food 45149 CHOCOLATE <0.10 kU/L 06/19/2017 Allergen Profile, Comprehensive Food 06167 COD <0.10 kU/L 04/2017 Allergen Profile, Comprehensive Food 13831 CORN <0.10 kU/L 04/2017 Allergen Profile, Comprehensive Food 28229 EGG WHITE <0.10 kU/L 06/19/2017 Allergen Profile, Comprehensive Food 10099 LETTUCE <0.10 kU/L 06/19/2017 Allergen Profile, Comprehensive Food 75468 MALT <0.10 kU/L 04/2017 Allergen Profile, Comprehensive Food 57025 MILK <0.10 kU/L 04/2017 Allergen Profile, Comprehensive Food 67374 OAT <0.10 kU/L 04/2017 Allergen Profile, Comprehensive Food 22365 ORANGE <0.10 kU/L 06/19/2017 Allergen Profile, Comprehensive Food 51813 PEANUT <0.10 kU/L 06/19/2017 Allergen Profile, Comprehensive Food 08497 PORK <0.10 kU/L 04/2017 Allergen Profile, Comprehensive Food 13491 POTATO <0.10 kU/L 06/19/2017 Allergen Profile, Comprehensive Food 88924 RYE <0.10 kU/L 04/2017 Allergen Profile, Comprehensive Food 04545 SHRIMP <0.10 kU/L 06/19/2017 Allergen Profile, Comprehensive Food 12329 SOYBEAN <0.10 kU/L 06/19/2017 Allergen Profile, Comprehensive Food 04663 TOMATO <0.10 kU/L 06/19/2017 Allergen Profile, Comprehensive Food 36010 WALNUT <0.10 kU/L 06/19/2017 Allergen Profile, Comprehensive Food 03346 WHEAT <0.10 kU/L Allergen Profile, Comprehensive Food 91309 STRAWBERRY <0.10 kU/L 06/19/2017 Allergen Profile, Comprehensive Food 73744 ALLERGEN INTERPRETATION 06/19/2017 Testosterone Vtd644 Testo 288.8 ng/dL 05/11/2017 Uric Acid Ord77 Uric A 6.0 mg/dL 05/05/2017 C-Reactive Protein Qnt Crqnt CRP 0.3 mg/dl 05/05/2017 Comp Metabolic Wai578 NA 140 mEq/L 05/05/2017 Comp Metabolic Fmj546 K 4.1 mEq/L 05/05/2017 Comp Metabolic Fam568 CL 106 mEq/L 05/05/2017 Comp Metabolic Urd552 CO2 27.0 mEq/L 05/05/2017 Comp Metabolic Loh201 ANION GAP 11 05/05/2017 Comp Metabolic Raq973 GLUCOSE 107 mg/dL 05/05/2017 Comp Metabolic Iqi251 Creat 0.9 mg/dL 05/05/2017 Comp Metabolic Rdx050 eGFR 89 ml/min/1.73m2 05/05/2017 Comp Metabolic Sjs924 BUN 10 mg/dL 05/05/2017 Comp Metabolic Wpz461 B/C Ratio 11.2 Ratio 05/05/2017 Comp Metabolic Jgi239 CALCIUM 8.6 mg/dL 05/05/2017 Comp Metabolic Qdj033 ALK PHOS 96 U/L 05/05/2017 Comp Metabolic Eak494 AST(SGOT) 36 U/L 05/05/2017 Comp Metabolic Snw279 ALT(SGPT) 40 U/L 05/05/2017 Comp Metabolic Bhv083 BILI T 0.3 mg/dL 05/05/2017 Comp Metabolic Vub353 ALBUMIN 3.8 g/dL 05/05/2017 Comp Metabolic Wgj858 TPRO 5.8 g/dL 05/05/2017 Comp Metabolic Qhb356 GLOB 2.0 g/dL 05/05/2017 Comp Metabolic Rcc760 A/G Ratio 1.9 Ratio 05/05/2017 Comp Metabolic Cah367 Osmo 279 mOsmo 05/05/2017 Sed Rate Ord21 [...] 31.5 pg 05/05/2017 Cbc With Differential Ord2 [place]% 20.6 % 05/05/2017 Cbc With Differential Ord2 [...] 0.27 K/ul 05/05/2017 Cbc With Differential Ord2 [place] ABS# 0.5 K/ul 05/05/2017 Cbc With Differential Ord2 Eos ABS# 0.1 K/ul 05/05/2017 Cbc With Differential Ord2 Baso ABS# 0.0 K/ul 05/05/2017 Magnesium Ord90 Mag 2.2 mg/dL 04/25/2017 Comp Metabolic Mzu520 NA 143 mEq/L 04/25/2017 Comp Metabolic Hhy631 K 4.2 mEq/L 04/25/2017 Comp Metabolic Lha391 CL 108 mEq/L 04/25/2017 Comp Metabolic Zur367 CO2 30.0 mEq/L 04/25/2017 Comp Metabolic Xnw705 ANION GAP 9 04/25/2017 Comp Metabolic Pqy756 GLUCOSE 80 mg/dL 04/25/2017 Comp Metabolic Vbu693 Creat 0.9 mg/dL 04/25/2017 Comp Metabolic Ybr482 eGFR 84 ml/min/1.73m2 04/25/2017 Comp Metabolic Dmx669 BUN 16 mg/dL 04/25/2017 Comp Metabolic Ybf139 B/C Ratio 17.0 Ratio 04/25/2017 Comp Metabolic Pvc811 CALCIUM 9.0 mg/dL 04/25/2017 Comp Metabolic Nks890 ALK PHOS 93 U/L 04/25/2017 Comp Metabolic Osv670 AST(SGOT) 32 U/L 04/25/2017 Comp Metabolic Gms891 ALT(SGPT) 36 U/L 04/25/2017 Comp Metabolic Brl397 BILI T 0.5 mg/dL 04/25/2017 Comp Metabolic Kbv506 ALBUMIN 3.9 g/dL 04/25/2017 Comp Metabolic Aba264 TPRO 6.0 g/dL 04/25/2017 Comp Metabolic Cui642 GLOB 2.1 g/dL 04/25/2017 Comp Metabolic Kdv971 A/G Ratio 1.8 Ratio 04/25/2017 Comp Metabolic Uiu504 Osmo 285 mOsmo 04/25/2017 Cbc With Differential Ord2 WBC 4.98 K/ul 04/25/2017 Cbc With Differential Ord2 RBC 4.62 M/ul 04/25/2017 Cbc With Differential Ord2 HGB 14.7 g/dl 04/25/2017 Cbc With Differential Ord2 Neut% 80.8 % 04/25/2017 Cbc With Differential Ord2 HCT 43.2 % 04/25/2017 Cbc With Differential Ord2 MCV 93.5 fl 04/25/2017 Cbc With Differential Ord2 Lymph% 6.4 % 04/25/2017 Cbc With Differential Ord2 MCH 31.8 pg 04/25/2017 Cbc With Differential Ord2 [place]% 10.2 % 04/25/2017 Cbc With Differential Ord2 MCHC 34.0 pg 04/25/2017 Cbc With Differential Ord2 Eos% 2.0 % 04/25/2017 Cbc With Differential Ord2 Baso% 0.6 % 04/25/2017 Cbc With Differential Ord2 PLT 156 K/ul 04/25/2017 Cbc With Differential Ord2 RDW 13.6 % 04/25/2017 Cbc With Differential Ord2 Neut ABS# 4.02 K/ul 04/25/2017 Cbc With Differential Ord2 Lymph ABS# 0.32 K/ul 04/25/2017 Cbc With Differential Ord2 [place] ABS# 0.5 K/ul 04/25/2017 Cbc With Differential Ord2 Eos ABS# 0.1 K/ul 04/25/2017 Cbc With Differential Ord2 Baso ABS# 0.0 K/ul 04/25/2017 Uric Acid Ord77 Uric A 6.0 mg/dL 04/25/2017 Comp Metabolic Flw488 NA 142 mEq/L 04/18/2017 Comp Metabolic Yva653 K 4.3 mEq/L 04/18/2017 Comp Metabolic Nxq415 CL 105 mEq/L 04/18/2017 Comp Metabolic Pds990 CO2 30.0 mEq/L 04/18/2017 Comp Metabolic Bpo987 ANION GAP 11 04/18/2017 Comp Metabolic Fbk803 GLUCOSE 126 mg/dL 04/18/2017 Comp Metabolic Yau890 Creat 1.0 mg/dL 04/18/2017 Comp Metabolic Zde465 eGFR 83 ml/min/1.73m2 04/18/2017 Comp Metabolic Yte193 BUN 17 mg/dL 04/18/2017 Comp Metabolic Ktp289 B/C Ratio 17.9 Ratio 04/18/2017 Comp Metabolic Jlr352 CALCIUM 9.0 mg/dL 04/18/2017 Comp Metabolic Cdb048 ALK PHOS 100 U/L 04/18/2017 Comp Metabolic Khs207 AST(SGOT) 27 U/L 04/18/2017 Comp Metabolic Tbj333 ALT(SGPT) 36 U/L 04/18/2017 Comp Metabolic Num956 BILI T 0.5 mg/dL 04/18/2017 Comp Metabolic Ocz013 ALBUMIN 3.8 g/dL 04/18/2017 Comp Metabolic Xwu073 TPRO 6.0 g/dL 04/18/2017 Comp Metabolic Wdn035 GLOB 2.2 g/dL 04/18/2017 Comp Metabolic Mmv087 A/G Ratio 1.8 Ratio 04/18/2017 Comp Metabolic Pwd513 Osmo 286 mOsmo 04/18/2017 Uric Acid Ord77 Uric A 5.9 mg/dL 04/18/2017 Cbc With Differential Ord2 WBC 3.86 K/ul 04/18/2017 Cbc With Differential Ord2 RBC 4.86 M/ul 04/18/2017 Cbc With Differential Ord2 HGB 15.7 g/dl 04/18/2017 Cbc With Differential Ord2 Neut% 81.3 % 04/18/2017 Cbc With Differential Ord2 HCT 45.7 % 04/18/2017 Cbc With Differential Ord2 Lymph% 6.0 % 04/18/2017 Cbc With Differential Ord2 MCV 94.0 fl 04/18/2017 Cbc With Differential Ord2 [place]% 9.6 % 04/18/2017 Cbc With Differential Ord2 [...] 0.23 K/ul 04/18/2017 Cbc With Differential Ord2 [place] ABS# 0.4 K/ul 04/18/2017 Cbc With Differential [...] 32.0 pg 03/30/2017 Cbc With Differential Ord2 [place]% 12.1 % 03/30/2017 Cbc With Differential Ord2 [...] 0.42 K/ul 03/30/2017 Cbc With Differential Ord2 [place] ABS# 0.8 K/ul 03/30/2017 Cbc With Differential Ord2 Eos ABS# 0.1 K/ul 03/30/2017 Cbc With Differential Ord2 Baso ABS# 0.0 K/ul 03/30/2017 Comp Metabolic Vkd681 NA 141 mEq/L 03/30/2017 Comp Metabolic Wek631 K 4.7 mEq/L 03/30/2017 Comp Metabolic Jxv018 CL 106 mEq/L 03/30/2017 Comp Metabolic Gxh544 CO2 28.0 mEq/L 03/30/2017 Comp Metabolic Spw897 ANION GAP 12 03/30/2017 Comp Metabolic Gmk315 GLUCOSE 81 mg/dL 03/30/2017 Comp Metabolic Muq633 Creat 1.0 mg/dL 03/30/2017 Comp Metabolic Spx562 eGFR 80 ml/min/1.73m2 03/30/2017 Comp Metabolic Ify275 BUN 17 mg/dL 03/30/2017 Comp Metabolic Str328 B/C Ratio 17.3 Ratio 03/30/2017 Comp Metabolic Ydh114 CALCIUM 8.9 mg/dL 03/30/2017 Comp Metabolic Nxl764 ALK PHOS 106 U/L 03/30/2017 Comp Metabolic Vmb036 AST(SGOT) 52 U/L 03/30/2017 Comp Metabolic Sxu602 ALT(SGPT) 54 U/L 03/30/2017 Comp Metabolic Vtm861 BILI T 0.4 mg/dL 03/30/2017 Comp Metabolic Uji941 ALBUMIN 3.8 g/dL 03/30/2017 Comp Metabolic Lua978 TPRO 6.2 g/dL 03/30/2017 Comp Metabolic Owo013 GLOB 2.4 g/dL 03/30/2017 Comp Metabolic Pir943 A/G Ratio 1.6 Ratio 03/30/2017 Comp Metabolic Rbs820 Osmo 282 mOsmo 03/30/2017 Uric Acid Ord77 [...] 6.1 % 03/23/2017 Cbc With Differential Ord2 [place]% 10.7 % 03/23/2017 Cbc With Differential Ord2 MCH 32.0 pg 03/23/2017 Cbc With Differential Ord2 Eos% 2.0 % 03/23/2017 Cbc With Differential Ord2 MCHC 34.0 pg 03/23/2017 Cbc With Differential Ord2 PLT 177 K/ul 03/23/2017 Cbc With Differential Ord2 Baso% 0.2 % 03/23/2017 Cbc With Differential Ord2 Neut ABS# 4.15 K/ul 03/23/2017 Cbc With Differential Ord2 RDW 13.8 % 03/23/2017 Cbc With Differential Ord2 Lymph ABS# 0.31 K/ul 03/23/2017 Cbc With Differential Ord2 [place] ABS# 0.6 K/ul 03/23/2017 Cbc With Differential Ord2 Eos ABS# 0.1 K/ul 03/23/2017 Cbc With Differential Ord2 Baso ABS# 0.0 K/ul 03/23/2017 Magnesium Ord90 Mag 2.0 mg/dL 03/23/2017 Comp Metabolic Loc957 NA 140 mEq/L 03/23/2017 Comp Metabolic Yms702 K 4.4 mEq/L 03/23/2017 Comp Metabolic Hus844 CL 105 mEq/L 03/23/2017 Comp Metabolic Ulc498 CO2 30.0 mEq/L 03/23/2017 Comp Metabolic Rkc271 ANION GAP 9 03/23/2017 Comp Metabolic Ahx864 GLUCOSE 75 mg/dL 03/23/2017 Comp Metabolic Mfv664 Creat 0.9 mg/dL 03/23/2017 Comp Metabolic Hhv850 eGFR 87 ml/min/1.73m2 03/23/2017 Comp Metabolic Dfr457 BUN 17 mg/dL 03/23/2017 Comp Metabolic Wtb901 B/C Ratio 18.7 Ratio 03/23/2017 Comp Metabolic Nug361 CALCIUM 9.0 mg/dL 03/23/2017 Comp Metabolic Fzx206 ALK PHOS 91 U/L 03/23/2017 Comp Metabolic Mgc955 AST(SGOT) 27 U/L 03/23/2017 Comp Metabolic Jma549 ALT(SGPT) 30 U/L 03/23/2017 Comp Metabolic Rfk274 BILI T 0.4 mg/dL 03/23/2017 Comp Metabolic Wdi753 ALBUMIN 3.8 g/dL 03/23/2017 Comp Metabolic Tzt110 TPRO 6.1 g/dL 03/23/2017 Comp Metabolic Oqs886 GLOB 2.3 g/dL 03/23/2017 Comp Metabolic Chj374 A/G Ratio 1.7 Ratio 03/23/2017 Comp Metabolic Idt181 Osmo 280 mOsmo 03/23/2017 Uric Acid Ord77 [...] 94.0 fl 03/06/2017 Cbc With Differential Ord2 [place]% 11.4 % 03/06/2017 Cbc With Differential Ord2 [...] 0.33 K/ul 03/06/2017 Cbc With Differential Ord2 [place] ABS# 0.5 K/ul 03/06/2017 Cbc With Differential Ord2 Eos ABS# 0.1 K/ul 03/06/2017 Cbc With Differential Ord2 Baso ABS# 0.0 K/ul 03/06/2017 Comp Metabolic Hsp909 NA 143 mEq/L 03/06/2017 Comp Metabolic Ayt998 K 4.1 mEq/L 03/06/2017 Comp Metabolic Cxg653 CL 107 mEq/L 03/06/2017 Comp Metabolic Zup398 CO2 29.0 mEq/L 03/06/2017 Comp Metabolic Jqf769 ANION GAP 11 03/06/2017 Comp Metabolic Syo706 GLUCOSE 129 mg/dL 03/06/2017 Comp Metabolic Pbc771 Creat 0.9 mg/dL 03/06/2017 Comp Metabolic Rhr306 eGFR 88 ml/min/1.73m2 03/06/2017 Comp Metabolic Sxy292 BUN 15 mg/dL 03/06/2017 Comp Metabolic Vci446 B/C Ratio 16.7 Ratio 03/06/2017 Comp Metabolic Zbw303 CALCIUM 8.7 mg/dL 03/06/2017 Comp Metabolic Utx921 ALK PHOS 99 U/L 03/06/2017 Comp Metabolic Ljs077 AST(SGOT) 29 U/L 03/06/2017 Comp Metabolic Kun121 ALT(SGPT) 30 U/L 03/06/2017 Comp Metabolic Deb264 BILI T 0.4 mg/dL 03/06/2017 Comp Metabolic Gtk229 ALBUMIN 3.8 g/dL 03/06/2017 Comp Metabolic Lba014 TPRO 5.9 g/dL 03/06/2017 Comp Metabolic Pxb026 GLOB 2.1 g/dL 03/06/2017 Comp Metabolic Pzj388 A/G Ratio 1.9 Ratio 03/06/2017 Comp Metabolic Rft819 Osmo 288 mOsmo 03/06/2017 Cbc With Differential [...] 94.1 fl 02/27/2017 Cbc With Differential Ord2 [place]% 10.1 % 02/27/2017 Cbc With Differential Ord2 [...] 0.32 K/ul 02/27/2017 Cbc With Differential Ord2 [place] ABS# 0.6 K/ul 02/27/2017 Cbc With Differential Ord2 Eos ABS# 0.1 K/ul 02/27/2017 Cbc With Differential Ord2 Baso ABS# 0.0 K/ul 02/27/2017 Uric Acid Ord77 Uric A 5.5 mg/dL 02/27/2017 Magnesium Ord90 Mag 2.2 mg/dL 02/27/2017 Comp Metabolic Xhx351 NA 141 mEq/L 02/27/2017 Comp Metabolic Ydq894 K 4.5 mEq/L 02/27/2017 Comp Metabolic Drg833 CL 105 mEq/L 02/27/2017 Comp Metabolic Ntn980 CO2 30.0 mEq/L 02/27/2017 Comp Metabolic Jsv514 ANION GAP 11 02/27/2017 Comp Metabolic Efj172 GLUCOSE 73 mg/dL 02/27/2017 Comp Metabolic Bxb475 Creat 0.9 mg/dL 02/27/2017 Comp Metabolic Dpj978 eGFR 87 ml/min/1.73m2 02/27/2017 Comp Metabolic Rgj472 BUN 17 mg/dL 02/27/2017 Comp Metabolic Gxw649 B/C Ratio 18.7 Ratio 02/27/2017 Comp Metabolic Qpz905 CALCIUM 8.8 mg/dL 02/27/2017 Comp Metabolic Bco857 ALK PHOS 93 U/L 02/27/2017 Comp Metabolic Pvq804 AST(SGOT) 31 U/L 02/27/2017 Comp Metabolic Qzr607 ALT(SGPT) 35 U/L 02/27/2017 Comp Metabolic Bht470 BILI T 0.4 mg/dL 02/27/2017 Comp Metabolic Jdu416 ALBUMIN 3.9 g/dL 02/27/2017 Comp Metabolic Pze335 TPRO 5.9 g/dL 02/27/2017 Comp Metabolic Gta376 GLOB 2.0 g/dL 02/27/2017 Comp Metabolic Xix716 A/G Ratio 2.0 Ratio 02/27/2017 Comp Metabolic Olz822 Osmo 281 mOsmo 02/27/2017 Magnesium Ord90 Mag [...] 32.0 pg 02/21/2017 Cbc With Differential Ord2 [place]% 9.0 % 02/21/2017 Cbc With Differential Ord2 [...] 0.31 K/ul 02/21/2017 Cbc With Differential Ord2 [place] ABS# 0.5 K/ul 02/21/2017 Cbc With Differential Ord2 Eos ABS# 0.1 K/ul 02/21/2017 Cbc With Differential Ord2 Baso ABS# 0.0 K/ul 02/21/2017 Uric Acid Ord77 Uric A 5.0 mg/dL 02/21/2017 Comp Metabolic Nfa586 NA 134 mEq/L 02/21/2017 Comp Metabolic Dti625 K 4.3 mEq/L 02/21/2017 Comp Metabolic Zli572 CL 100 mEq/L 02/21/2017 Comp Metabolic Mzg881 CO2 28.0 mEq/L 02/21/2017 Comp Metabolic Upd336 ANION GAP 10 02/21/2017 Comp Metabolic Ywq926 GLUCOSE 130 mg/dL 02/21/2017 Comp Metabolic Ipt968 Creat 1.0 mg/dL 02/21/2017 Comp Metabolic Cdd414 eGFR 77 ml/min/1.73m2 02/21/2017 Comp Metabolic Bpo738 BUN 17 mg/dL 02/21/2017 Comp Metabolic Yll214 B/C Ratio 16.8 Ratio 02/21/2017 Comp Metabolic Stq256 CALCIUM 9.1 mg/dL 02/21/2017 Comp Metabolic Oud010 ALK PHOS 92 U/L 02/21/2017 Comp Metabolic Tha381 AST(SGOT) 23 U/L 02/21/2017 Comp Metabolic Wep728 ALT(SGPT) 29 U/L 02/21/2017 Comp Metabolic Hiv970 BILI T 0.3 mg/dL 02/21/2017 Comp Metabolic Sgj372 ALBUMIN 3.9 g/dL 02/21/2017 Comp Metabolic Tog653 TPRO 6.1 g/dL 02/21/2017 Comp Metabolic Wsc774 GLOB 2.2 g/dL 02/21/2017 Comp Metabolic Gsj457 A/G Ratio 1.8 Ratio 02/21/2017 Comp Metabolic Kqr596 Osmo 272 mOsmo 02/21/2017 Uric Acid Ord77 Uric A 4.2 mg/dL 02/07/2017 Comp Metabolic Itq735 NA 139 mEq/L 02/07/2017 Comp Metabolic Vhw900 K 4.6 mEq/L 02/07/2017 Comp Metabolic Fdq537 CL 106 mEq/L 02/07/2017 Comp Metabolic Hxh611 CO2 29.0 mEq/L 02/07/2017 Comp Metabolic Bpg481 ANION GAP 9 02/07/2017 Comp Metabolic Wnb747 GLUCOSE 99 mg/dL 02/07/2017 Comp Metabolic Yon691 Creat 0.9 mg/dL 02/07/2017 Comp Metabolic Ljd216 eGFR 92 ml/min/1.73m2 02/07/2017 Comp Metabolic Dez747 BUN 19 mg/dL 02/07/2017 Comp Metabolic Zix198 B/C Ratio 21.8 Ratio 02/07/2017 Comp Metabolic Zsl564 CALCIUM 8.8 mg/dL 02/07/2017 Comp Metabolic Rev506 ALK PHOS 81 U/L 02/07/2017 Comp Metabolic Wlb712 AST(SGOT) 22 U/L 02/07/2017 Comp Metabolic Oly490 ALT(SGPT) 24 U/L 02/07/2017 Comp Metabolic Nrt651 BILI T 0.3 mg/dL 02/07/2017 Comp Metabolic Vmx155 ALBUMIN 3.9 g/dL 02/07/2017 Comp Metabolic Uup161 TPRO 5.8 g/dL 02/07/2017 Comp Metabolic Sow200 GLOB 1.9 g/dL 02/07/2017 Comp Metabolic Xkx151 A/G Ratio 2.0 Ratio 02/07/2017 Comp Metabolic Rtx265 Osmo 280 mOsmo 02/07/2017 Cbc With Differential [...] 10.4 % 02/07/2017 Cbc With Differential Ord2 [place]% 12.0 % 02/07/2017 Cbc With Differential Ord2 MCH 31.9 pg 02/07/2017 Cbc With Differential Ord2 MCHC 34.2 pg 02/07/2017 Cbc With Differential Ord2 Eos% 3.1 % 02/07/2017 Cbc With Differential Ord2 Baso% 0.7 % 02/07/2017 Cbc With Differential Ord2 PLT 184 K/ul 02/07/2017 Cbc With Differential Ord2 Neut ABS# 3.13 K/ul 02/07/2017 Cbc With Differential Ord2 RDW 14.2 % 02/07/2017 Cbc With Differential Ord2 Lymph ABS# 0.44 K/ul 02/07/2017 Cbc With Differential Ord2 [place] ABS# 0.5 K/ul 02/07/2017 Cbc With Differential Ord2 Eos ABS# 0.1 K/ul 02/07/2017 Cbc With Differential Ord2 Baso ABS# 0.0 K/ul 02/07/2017 Magnesium Ord90 Mag 2.1 mg/dL 02/07/2017 Comp Metabolic Hwi339 NA 142 mEq/L 01/31/2017 Comp Metabolic Beh372 K 4.7 mEq/L 01/31/2017 Comp Metabolic Ayv745 CL 106 mEq/L 01/31/2017 Comp Metabolic Yst527 CO2 32.0 mEq/L 01/31/2017 Comp Metabolic Kdx546 ANION GAP 9 01/31/2017 Comp Metabolic Wih480 GLUCOSE 93 mg/dL 01/31/2017 Comp Metabolic Pab692 Creat 1.0 mg/dL 01/31/2017 Comp Metabolic Zdd348 eGFR 83 ml/min/1.73m2 01/31/2017 Comp Metabolic Xph625 BUN 20 mg/dL 01/31/2017 Comp Metabolic Nkq646 B/C Ratio 21.1 Ratio 01/31/2017 Comp Metabolic Nni172 CALCIUM 9.1 mg/dL 01/31/2017 Comp Metabolic Hlb859 ALK PHOS 80 U/L 01/31/2017 Comp Metabolic Ipc536 AST(SGOT) 22 U/L 01/31/2017 Comp Metabolic Eiq334 ALT(SGPT) 24 U/L 01/31/2017 Comp Metabolic Ole584 BILI T 0.4 mg/dL 01/31/2017 Comp Metabolic Ihl990 ALBUMIN 4.0 g/dL 01/31/2017 Comp Metabolic But898 TPRO 6.0 g/dL 01/31/2017 Comp Metabolic Lnh508 GLOB 2.1 g/dL 01/31/2017 Comp Metabolic Lnv920 A/G Ratio 1.9 Ratio 01/31/2017 Comp Metabolic Ttg435 Osmo 285 mOsmo 01/31/2017 Cbc With Differential [...] 94.4 fl 01/31/2017 Cbc With Differential Ord2 [place]% 7.9 % 01/31/2017 Cbc With Differential Ord2 [...] 0.38 K/ul 01/31/2017 Cbc With Differential Ord2 [place] ABS# 0.6 K/ul 01/31/2017 Cbc With Differential [...] 82.2 % 01/23/2017 Cbc With Differential Ord2 Lymph% 7.2 % 01/23/2017 Cbc With Differential Ord2 MCV 94.5 fl 01/23/2017 Cbc With Differential Ord2 MCH 32.1 pg 01/23/2017 Cbc With Differential Ord2 [place]% 8.9 % 01/23/2017 Cbc With Differential Ord2 Eos% 1.5 % 01/23/2017 Cbc With Differential Ord2 MCHC 34.0 pg 01/23/2017 Cbc With Differential Ord2 PLT 177 K/ul 01/23/2017 Cbc With Differential Ord2 Baso% 0.2 % 01/23/2017 Cbc With Differential Ord2 RDW 14.5 % 01/23/2017 Cbc With Differential Ord2 Neut ABS# 4.81 K/ul 01/23/2017 Cbc With Differential Ord2 Lymph ABS# 0.42 K/ul 01/23/2017 Cbc With Differential Ord2 [place] ABS# 0.5 K/ul 01/23/2017 Cbc With Differential Ord2 Eos ABS# 0.1 K/ul 01/23/2017 Cbc With Differential Ord2 Baso ABS# 0.0 K/ul 01/23/2017 Uric Acid Ord77 Uric A 5.4 mg/dL 01/23/2017 Comp Metabolic Dom712 NA 141 mEq/L 01/23/2017 Comp Metabolic Bio067 K 4.4 mEq/L 01/23/2017 Comp Metabolic Cri500 CL 104 mEq/L 01/23/2017 Comp Metabolic Lec919 CO2 31.0 mEq/L 01/23/2017 Comp Metabolic Tkr736 ANION GAP 10 01/23/2017 Comp Metabolic Zne839 GLUCOSE 109 mg/dL 01/23/2017 Comp Metabolic Eki628 Creat 1.1 mg/dL 01/23/2017 Comp Metabolic Bid153 eGFR 71 ml/min/1.73m2 01/23/2017 Comp Metabolic Rtg581 BUN 22 mg/dL 01/23/2017 Comp Metabolic Fls395 B/C Ratio 20.4 Ratio 01/23/2017 Comp Metabolic Vqv141 CALCIUM 9.1 mg/dL 01/23/2017 Comp Metabolic Ulq695 ALK PHOS 76 U/L 01/23/2017 Comp Metabolic Crm017 AST(SGOT) 22 U/L 01/23/2017 Comp Metabolic Yiv562 ALT(SGPT) 22 U/L 01/23/2017 Comp Metabolic Sij744 BILI T 0.4 mg/dL 01/23/2017 Comp Metabolic Ion164 ALBUMIN 3.8 g/dL 01/23/2017 Comp Metabolic Dto598 TPRO 5.9 g/dL 01/23/2017 Comp Metabolic Scp661 GLOB 2.1 g/dL 01/23/2017 Comp Metabolic Nys920 A/G Ratio 1.8 Ratio 01/23/2017 Comp Metabolic Jvy478 Osmo 285 mOsmo 01/23/2017 Testosterone Qdo249 Testo 321.3 ng/dL 01/10/2017 Comp Metabolic Dpy662 NA 141 mEq/L 01/10/2017 Comp Metabolic Lwj229 K 4.8 mEq/L 01/10/2017 Comp Metabolic Sdx681 CL 106 mEq/L 01/10/2017 Comp Metabolic Qbh004 CO2 29.0 mEq/L 01/10/2017 Comp Metabolic Uoq078 ANION GAP 11 01/10/2017 Comp Metabolic Qmm875 GLUCOSE 73 mg/dL 01/10/2017 Comp Metabolic Zec617 Creat 0.9 mg/dL 01/10/2017 Comp Metabolic Ims888 eGFR 93 ml/min/1.73m2 01/10/2017 Comp Metabolic Jjo203 BUN 19 mg/dL 01/10/2017 Comp Metabolic Dcs933 B/C Ratio 22.1 Ratio 01/10/2017 Comp Metabolic Dse335 CALCIUM 9.0 mg/dL 01/10/2017 Comp Metabolic Wmw284 ALK PHOS 80 U/L 01/10/2017 Comp Metabolic Cis326 AST(SGOT) 24 U/L 01/10/2017 Comp Metabolic Byx923 ALT(SGPT) 28 U/L 01/10/2017 Comp Metabolic Gpf558 BILI T 0.4 mg/dL 01/10/2017 Comp Metabolic Fjp914 ALBUMIN 3.8 g/dL 01/10/2017 Comp Metabolic Sfn788 TPRO 5.9 g/dL 01/10/2017 Comp Metabolic Ime358 GLOB 2.1 g/dL 01/10/2017 Comp Metabolic Uqv332 A/G Ratio 1.9 Ratio 01/10/2017 Comp Metabolic Kmx934 Osmo 282 mOsmo 01/10/2017 Cbc With Differential [...] 31.9 pg 01/10/2017 Cbc With Differential Ord2 [place]% 9.6 % 01/10/2017 Cbc With Differential Ord2 [...] 0.62 K/ul 01/10/2017 Cbc With Differential Ord2 [place] ABS# 0.6 K/ul 01/10/2017 Cbc With Differential [...] 31.8 pg 01/03/2017 Cbc With Differential Ord2 [place]% 8.6 % 01/03/2017 Cbc With Differential Ord2 MCHC 33.9 pg 01/03/2017 Cbc With Differential Ord2 Eos% 1.9 % 01/03/2017 Cbc With Differential Ord2 PLT 172 K/ul 01/03/2017 Cbc With Differential Ord2 Baso% 0.5 % 01/03/2017 Cbc With Differential Ord2 Neut ABS# 5.09 K/ul 01/03/2017 Cbc With Differential Ord2 RDW 14.3 % 01/03/2017 Cbc With Differential Ord2 Lymph ABS# 0.42 K/ul 01/03/2017 Cbc With Differential Ord2 [place] ABS# 0.5 K/ul 01/03/2017 Cbc With Differential Ord2 Eos ABS# 0.1 K/ul 01/03/2017 Cbc With Differential Ord2 Baso ABS# 0.0 K/ul 01/03/2017 Comp Metabolic Nhz904 NA 140 mEq/L 01/03/2017 Comp Metabolic Nwm618 K 4.7 mEq/L 01/03/2017 Comp Metabolic Qpa359 CL 106 mEq/L 01/03/2017 Comp Metabolic Fqw840 CO2 28.0 mEq/L 01/03/2017 Comp Metabolic Niv753 ANION GAP 11 01/03/2017 Comp Metabolic Sgh660 GLUCOSE 126 mg/dL 01/03/2017 Comp Metabolic Kil918 Creat 0.9 mg/dL 01/03/2017 Comp Metabolic Zio626 eGFR 88 ml/min/1.73m2 01/03/2017 Comp Metabolic Vkj488 BUN 23 mg/dL 01/03/2017 Comp Metabolic Jlj863 B/C Ratio 25.6 Ratio 01/03/2017 Comp Metabolic Ntr080 CALCIUM 8.8 mg/dL 01/03/2017 Comp Metabolic Ldu045 ALK PHOS 73 U/L 01/03/2017 Comp Metabolic Znv774 AST(SGOT) 25 U/L 01/03/2017 Comp Metabolic Wac855 ALT(SGPT) 30 U/L 01/03/2017 Comp Metabolic Pvr362 BILI T 0.4 mg/dL 01/03/2017 Comp Metabolic Cyc372 ALBUMIN 3.9 g/dL 01/03/2017 Comp Metabolic Sxw869 TPRO 5.9 g/dL 01/03/2017 Comp Metabolic Tow716 GLOB 2.1 g/dL 01/03/2017 Comp Metabolic Wjb032 A/G Ratio 1.9 Ratio 01/03/2017 Comp Metabolic Cla224 Osmo 285 mOsmo 01/03/2017 Cbc With Differential Ord2 WBC 5.98 K/ul 12/12/2016 Cbc With Differential Ord2 RBC 4.48 M/ul 12/12/2016 Cbc With Differential Ord2 HGB 14.2 g/dl 12/12/2016 Cbc With Differential Ord2 Neut% 75.2 % 12/12/2016 Cbc With Differential Ord2 HCT 42.3 % 12/12/2016 Cbc With Differential Ord2 Lymph% 13.4 % 12/12/2016 Cbc With Differential Ord2 MCV 94.4 fl 12/12/2016 Cbc With Differential Ord2 [place]% 8.9 % 12/12/2016 Cbc With Differential Ord2 MCH 31.7 pg 12/12/2016 Cbc With Differential Ord2 Eos% 1.7 % 12/12/2016 Cbc With Differential Ord2 MCHC 33.6 pg 12/12/2016 Cbc With Differential Ord2 PLT 186 K/ul 12/12/2016 Cbc With Differential Ord2 Baso% 0.8 % 12/12/2016 Cbc With Differential Ord2 Neut ABS# 4.50 K/ul 12/12/2016 Cbc With Differential Ord2 RDW 14.6 % 12/12/2016 Cbc With Differential Ord2 Lymph ABS# 0.80 K/ul 12/12/2016 Cbc With Differential Ord2 [place] ABS# 0.5 K/ul 12/12/2016 Cbc With Differential Ord2 Eos ABS# 0.1 K/ul 12/12/2016 Cbc With Differential Ord2 Baso ABS# 0.1 K/ul 12/12/2016 Comp Metabolic Zee624 NA 140 mEq/L 12/12/2016 Comp Metabolic Bue742 K 3.8 mEq/L 12/12/2016 Comp Metabolic Nof472 CL 105 mEq/L 12/12/2016 Comp Metabolic Yck392 CO2 26.0 mEq/L 12/12/2016 Comp Metabolic Wls245 ANION GAP 13 12/12/2016 Comp Metabolic Aef291 GLUCOSE 112 mg/dL 12/12/2016 Comp Metabolic Vxc568 Creat 0.9 mg/dL 12/12/2016 Comp Metabolic Pig631 eGFR 89 ml/min/1.73m2 12/12/2016 Comp Metabolic Hgh072 BUN 16 mg/dL 12/12/2016 Comp Metabolic Pin486 B/C Ratio 18.0 Ratio 12/12/2016 Comp Metabolic Ypk696 CALCIUM 8.6 mg/dL 12/12/2016 Comp Metabolic Osr277 ALK PHOS 80 U/L 12/12/2016 Comp Metabolic Zlw098 AST(SGOT) 21 U/L 12/12/2016 Comp Metabolic Aun965 ALT(SGPT) 23 U/L 12/12/2016 Comp Metabolic Jes410 BILI T 0.4 mg/dL 12/12/2016 Comp Metabolic Gvj166 ALBUMIN 3.7 g/dL 12/12/2016 Comp Metabolic Btj768 TPRO 5.6 g/dL 12/12/2016 Comp Metabolic Xsr036 GLOB 1.9 g/dL 12/12/2016 Comp Metabolic Ncg907 A/G Ratio 2.0 Ratio 12/12/2016 Comp Metabolic Ujc228 Osmo 281 mOsmo 12/12/2016 Comp Metabolic Src699 NA 140 mEq/L 12/05/2016 Comp Metabolic Cro977 K 4.6 mEq/L 12/05/2016 Comp Metabolic Hfc801 CL 104 mEq/L 12/05/2016 Comp Metabolic Kxb675 CO2 29.0 mEq/L 12/05/2016 Comp Metabolic Mwd570 ANION GAP 12 12/05/2016 Comp Metabolic Zyn589 GLUCOSE 93 mg/dL 12/05/2016 Comp Metabolic Ezg110 Creat 0.8 mg/dL 12/05/2016 Comp Metabolic Amt542 eGFR 98 ml/min/1.73m2 12/05/2016 Comp Metabolic Qox864 BUN 20 mg/dL 12/05/2016 Comp Metabolic Myu694 B/C Ratio 24.4 Ratio 12/05/2016 Comp Metabolic Sjc890 CALCIUM 8.8 mg/dL 12/05/2016 Comp Metabolic Rbq766 ALK PHOS 82 U/L 12/05/2016 Comp Metabolic Wqy920 AST(SGOT) 24 U/L 12/05/2016 Comp Metabolic Icp627 ALT(SGPT) 28 U/L 12/05/2016 Comp Metabolic Coj550 BILI T 0.4 mg/dL 12/05/2016 Comp Metabolic Hrr065 ALBUMIN 3.9 g/dL 12/05/2016 Comp Metabolic Xpq258 TPRO 5.9 g/dL 12/05/2016 Comp Metabolic Omw854 GLOB 2.0 g/dL 12/05/2016 Comp Metabolic Xiz825 A/G Ratio 2.0 Ratio 12/05/2016 Comp Metabolic Hhd606 Osmo 282 mOsmo 12/05/2016 Cbc With Differential [...] 31.3 pg 12/05/2016 Cbc With Differential Ord2 [place]% 8.8 % 12/05/2016 Cbc With Differential Ord2 [...] 1.16 K/ul 12/05/2016 Cbc With Differential Ord2 [place] ABS# 0.7 K/ul 12/05/2016 Cbc With Differential [...] developed 04/02/2018 None Full Exam - General 1994 Constitutional general appearance Overall: in no acute distress 04/02/2018 None Full Exam - General 1994 Constitutional general appearance Overall: well nourished 04/02/2018 [...] No Procedures data Vital Signs Date Vital 04/02/2018 Blood Pressure 1: 132/70 Code : 8480-6 BMI: 30.7 Code : 56609-9 Heart Rate 1 : 59 bpm Height: 6' SpO2: 99% Weight: 226 lbs 02/22/2018 Blood Pressure 1: 140/70 Code : 8480-6 BMI: 30.0 Code : 71957-8 Heart Rate 1 : 70 bpm Height: 6' SpO2: 98% Weight: 221 lbs 02/01/2018 Blood Pressure 1: 144/76 Code : 8480-6 BMI: 30.0 Code : 87673-8 Heart Rate 1 : 66 bpm Height: 6' SpO2: 99% Weight: 221 lbs 01/02/2018 Blood Pressure 1: 130/76 Code : 8480-6 BMI: 29.4 Code : 00738-5 Heart Rate 1 : 90 bpm Height: 6' SpO2: 99% Weight: 217 lbs 12/21/2017 Blood Pressure 1: 142/80 Code : 8480-6 BMI: 29.7 Code : 90190-0 Heart Rate 1 : 74 bpm Height: 6' SpO2: 96% Weight: 219 lbs 11/22/2017 Blood Pressure 1: 130/72 Code : 8480-6 BMI: 29.8 Code : 21277-3 Heart Rate 1 : 53 bpm Height: 6' SpO2: 97% Weight: 220 lbs 07/19/2017 Blood Pressure 1: 142/80 Code : 8480-6 BMI: 30.1 Code : 25625-1 Heart Rate 1 : 60 bpm Height: 6' SpO2: 99% Weight: 222 lbs 06/05/2017 Blood Pressure 1: 136/74 Code : 8480-6 BMI: 30.2 Code : 27224-6 Heart Rate 1 : 59 bpm Height: 6' SpO2: 98% Weight: 223 lbs 05/03/2017 Blood Pressure 1: 128/80 Code : 8480-6 BMI: 30.2 Code : 86834-5 Heart Rate 1 : 79 bpm Height: 6' SpO2: 98% Weight: 223 lbs 02/27/2017 Blood Pressure 1: 126/66 Code : 8480-6 BMI: 30.2 Code : 62942-1 Heart Rate 1 : 61 bpm Height: 6' SpO2: 99% Weight: 223 lbs 01/10/2017 Blood Pressure 1: 136/70 Code : 8480-6 BMI: 30.0 Code : 60407-4 Heart Rate 1 : 62 bpm Height: 6' SpO2: 98% Weight: 221 lbs 8 oz 12/05/2016 Blood Pressure 1: 138/74 Code : 8480-6 BMI: 29.3 Code : 56315-0 Heart Rate 1 : 62 bpm Height: 6' SpO2: 98% Weight: 216 lbs Functional Status No Functional Status data History of Present Illness Symptom Name Status Result Effective Date Notes Location on the left 04/02/2018 None Pertinent [...] data Encounters Encounter Performer Location Codes Date ([id number]) [id number] EST. PATIENT, LEVEL III Diagnosis: Other specified polyneuropathies[ICD10: G62.89] Diagnosis: Pain in left foot[ICD10: M79.672] Harriet Salomon MD, [facility] CPT-4: 46733 04/02/2018 ([id number]) [id number] EST. PATIENT, LEVEL IV Diagnosis: Generalized anxiety disorder[ICD10: F41.1] Diagnosis: Pain in left foot[ICD10: M79.672] Harriet Salomon MD, [facility] CPT-4: 93614 02/22/2018 ([id number]) 93893 EST. PATIENT, LEVEL IV Diagnosis: Generalized anxiety disorder[ICD10: F41.1] Diagnosis: Major depressive disorder, single episode, moderate[ICD10: F32.1] Diagnosis: Adjustment insomnia[ICD10: F51.02] [facility] CPT-4: 58266 02/01/2018 [id number] EST. PATIENT, LEVEL III Diagnosis: Generalized anxiety disorder[ICD10: F41.1] Diagnosis: Major depressive disorder, single episode, moderate[ICD10: F32.1] Leonor Salomon MD, [facility] CPT-4: 10634 01/02/2018 ([id number] EST. PATIENT, LEVEL III Diagnosis: Concussion without loss of consciousness, initial encounter[ICD10: S06.0X0A] Diagnosis: Laceration without foreign body of other part of head, initial encounter[ICD10: S01.81XA] Harriet Salomon MD, [facility] CPT-4: 82309 12/21/2017 [id number]) [id number] EST. 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 PATIENT, LEVEL III Diagnosis: Rash and other nonspecific skin eruption[ICD10: R21] Diagnosis: Slow transit constipation[ICD10: K59.01] [facility] CPT-4: 78514 07/19/2017 [id number]) 11334 EST. PATIENT, LEVEL III Diagnosis: Epigastric pain[ICD10: R10.13] Harriet Salomon MD, [facility] CPT- 4: 69174 06/05/2017 [id number]) 93801 EST. PATIENT, LEVEL IV Diagnosis: Umbilical hernia without obstruction or gangrene[ICD10: K42.9] Diagnosis: Chronic lymphocytic leukemia of B-cell type not having achieved remission[ICD10: C91.10] Diagnosis: Pain in left hip[ICD10: M25.552] Diagnosis: Pain in right hip[ICD10: M25.551] Diagnosis: Pain in left knee[ICD10: M25.562] Diagnosis: Pain in right knee[ICD10: M25.561] [facility] CPT-4: 31091 05/03/2017 [id number]) 72856 EST. PATIENT, LEVEL IV Diagnosis: Chronic lymphocytic leukemia of B-cell type not having achieved remission[ICD10: C91.10] Diagnosis: Periumbilical pain[ICD10: R10.33] [facility] CPT-4: 15518 02/27/2017 ([id number]) 53633 EST. 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] Diagnosis: Umbilical hernia without obstruction or gangrene[ICD10: K42.9] [facility] CPT-4: 42319 01/10/2017 ([id number]) OFFICE VISIT, NEW - LEVEL 4 Diagnosis: Umbilical hernia without obstruction or gangrene[ICD10: K42.9] Diagnosis: Periumbilical pain[ICD10: R10.33] Diagnosis: Chronic lymphocytic leukemia of B-cell type not having achieved remission[ICD10: C91.10] Diagnosis: Slow transit constipation[ICD10: K59.01] Harriet Salomon MD, [facility] CPT-4: 13233 12/05/2016 Plan of Care Planned Activity Notes Codes Status Date Visit Plan: Neuropathy - left foot pain - discussed with pt - we could consider starting him on gabapentin if his pain worsens - he is not interested in starting on medications at this time - however if the pain worsens or neuropathy worsens - he is to call the office. 04/02/2018 Appointment: Harriet Salomon WPtel: [facility] [place] (15 min) Moderate 04/02/2018 Patient Education: Patient [...] the attack. 02/22/2018 Appointment: Harriet Salomon WPtel: [facility] [place] (15 min) Moderate 02/22/2018 Patient Education: Patient Medication Summary Completed 02/22/2018 Appointment: Harriet Salomon WPtel: [phone] [facility] (15 min) Moderate 02/21/2018 Visit Plan: Depression [...] insomnia. 02/01/2018 Appointment: Nalini Lucas WPtel: [phone] [phone] (15 min) Moderate 02/01/2018 Patient Education: Patient [...] patient. 01/02/2018 Appointment: Leonor Niño WPtel: [phone] [facility] (15 min) Moderate 01/02/2018 Patient Education: Patient [...] at times. 12/21/2017 Appointment: Harriet Salomon WPtel: [address] [place], [place] [address] (15 min) Moderate 12/21/2017 Patient Education: Patient [...] this time. 11/22/2017 Appointment: Harriet Salomon WPtel: [facility] (15 min) Moderate 11/22/2017 Patient Education: Patient Medication Summary Completed 11/22/2017 Visit Plan: CLL - pt has finished chemotherapy - continue with follow up with Dr. Austin. Umbilical hernia -pt is not interested in surgery right now. Constipation - continue with current regimen - add prune juice - keep appt for colonoscopy and EGD. 07/19/2017 Appointment: Harriet Salomon WPtel: [facility] [facility] [place] (15 min) Moderate 07/19/2017 Patient Education: Patient Medication Summary Completed 07/19/2017 Visit Plan: Epigastric abdominal pain - pt advised to avoid dairy products - pt to start on start on the carafate and restart pepcid 06/05/2017 Appointment: Harriet Salomon WPtel: [facility] [facility] [place] (15 min) Moderate 06/05/2017 Patient Education: [...] to surgery. 05/03/2017 Appointment: Harriet Salomon WPtel: [facility] [place] [address] [place] (15 min) Moderate 05/03/2017 Patient Education: Patient Medication Summary Completed 05/03/2017 Visit Plan: CLL - continue with chemotherapy. Umbilical hernia - agree with plans for pt to have re-evaluation with surgeon after his chemotherapy is complete. 02/27/2017 Appointment: Harriet Salomon WPtel: [facility] (15 min) Moderate 02/27/2017 Patient Education: Patient [...] is completed. 01/10/2017 Appointment: Harriet Salomon WPtel: [facility] [facility] (15 min) Moderate 01/10/2017 Patient Education: Patient Medication Summary Completed 01/10/2017 Patient Education: Obesity Completed 01/10/2017 Care Plan: ASSAY OF TOTAL TESTOSTERONE LOINC : 73500-1 Pending 01/10/2017 Appointment: Harriet Salomon WPtel: [facility] [facility] (15 min) Moderate 01/02/2017 Visit Plan: Umbilical [...] this regimen. 12/05/2016 Appointment: Harriet Salomon WPtel: [phone] [facility] New Patient 12/05/2016 Patient Education: Patient Medication Summary Completed 12/05/2016 Instructions Comment . Decreased Libido - check testosterone level. [...] - keep appt for colonoscopy and EGD. start on the carafate and restart pepcid . Epigastric abdominal pain - pt advised to avoid dairy products - pt to start on start on the carafate and restart pepcid extended release melatonin . Esa had a [...] which could be quite painful at times. tonic water 4 ounces at bedtime - [...] not interested in surgery at this time. START LEXAPRO 1/2 PILL DAILY TO SEE [...] Daytime napping worsens night time insomnia. . Neuropathy - left foot pain - discussed with pt - we could consider starting him on gabapentin if his pain worsens - he is not interested in starting on medications at this time - however if the pain worsens or neuropathy worsens - he is to call the office. . CLL - continue with chemotherapy. Umbilical hernia - agree with plans for pt to have re-evaluation with surgeon after his chemotherapy is complete. aleve twice daily - 220mg each can also take up to 6 500mg tylenol in one day. CLL - pt has finished chemotherapy - continue with follow up with Dr. Austin. Umbilical hernia -pt cannot get his surgery until another month from this date as he has to wait for the chemotherapy to be out of his system prior to surgery. please have the director life insurance look at the rough area below your [...] if symptoms not improved on this regimen. . Anxiety - the patient has uncontrolled [...] has been appropriately prescribed for this patient. . Pain in left foot - Rx for xray given to patient today. Anxiety - and Insomnia - continue with temazepam. Hx of Concussion and Attack by individual at work - he is feeling better, but still has some intermittent dizziness and still has some mood swings that he did not have prior to the attack.
--- OUTSIDE RECORDS SUMMARY | 2018-05-10 18:34 | XMS REPORT | CCD ---
Author Author [facility] Organization [facility] Address [address] [place] [address] Phone Care Team Providers Care Cable Tower Operator Name Role Phone PP Unavailable CCM Unavailable Summary Purpose Interface Exchange Insurance Providers Payer name Policy type / Coverage type Covered alliance party ID Effective Begin Date Effective End Date WPS Medicare Part B Medicare Part B [id number] Unknown AARP Medicare Part B [id number] Unknown Family history Father Diagnosis Age At Onset brain cancer Unknown Skin cancer Unknown Mother Diagnosis Age At Onset Cancer Unknown Daughter Diagnosis Age At Onset Celiac disease Unknown Social History Social History Element Codes Description Effective Dates Marital status Unknown Single 12/05/2016 Number of children Unknown 2 12/05/2016 Employment Unknown 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 Unknown Has never used illegal drugs 12/05/2016 Allergies, Adverse Reactions, Alerts Substance Reaction Codes Entered Date Inactivated Date Status * NO KNOWN DRUG ALLERGIES Unknown 12/05/2016 No Inactive Date Active Past Medical History Illness Codes Condition Status Onset Date Resolved Date Generalized anxiety disorder ICD-9: 300.00 ICD-10: F41.1 Active 01/02/2018 Unknown Pain in left foot ICD- 9: 729.5 ICD-10: M79.672 Active 02/22/2018 Unknown Adjustment insomnia ICD-9: 307.41 ICD-10: F51.02 [...] Problems Condition Codes Effective Dates Condition Status Generalized anxiety disorder ICD-9: 300.00 ICD-10: F41.1 01/02/2018 Active Pain in left foot ICD- 9: 729.5 ICD-10: M79.672 02/22/2018 Active Adjustment insomnia ICD-9: 307.41 ICD-10: F51.02 [...] Fill Instructions temazepam 7.5 mg capsule RxNorm: 095722 1 Capsule(s) PO QHS 02/15/2018 Inactive temazepam 7.5 mg capsule RxNorm: 545416 1 Capsule(s) PO QHS 01/16/2018 Inactive Restoril 15 mg capsule RxNorm: 339249 1 Capsule(s) PO daily 01/31/2018 Inactive Restoril 7.5 mg capsule RxNorm: 377689 1 Capsule(s) PO daily 01/07/2018 Inactive Restoril 7.5 mg capsule RxNorm: 503065 1 Capsule(s) PO daily 01/09/2018 Inactive Lexapro 10 mg tablet RxNorm: 412607 1 Tablet(s) PO QHS 201701/31/2018 Inactive Voltaren 1 % topical gel RxNorm: 307723 4 Gram(s) TOP QID as needed 11/22/2017 No Stop Date Active Viagra 100 mg tablet RxNorm: 938414 1 Tablet(s) PO PRN sexual encounter 10/02/2017 No Stop Date Active promethazine 6.25 mg-codeine 10 mg/5 mL syrup RxNorm: 330300 5-10 Milliliter(s) PO Q6 as needed 10/02/2017 12/20/2017 Inactive Keflex 500 mg capsule RxNorm: 023071 1 Capsule(s) PO TID 201707/25/2017 Inactive Pepcid 20 mg tablet RxNorm: 003923 1 Tablet(s) PO BID 201707/18/2017 Inactive Carafate 1 gram tablet RxNorm: 921222 1 Tablet(s) PO QID 201707/04/2017 Inactive Pepcid 20 mg tablet RxNorm: 803842 1 Tablet(s) PO BID 201706/04/2017 Inactive mupirocin 2 % topical cream RxNorm: 057629 1 Application TOP BID 02/27/2017 03/08/2017 Inactive meclizine 25 mg tablet RxNorm: 425719 1 Tablet(s) PO TID as needed nausea 01/27/2017 03/27/2017 Inactive meclizine 25 mg tablet RxNorm: 394967 1 Tablet(s) PO TID as needed nausea 01/27/2017 01/26/2017 Inactive scopolamine 1 mg over 3 days transdermal patch RxNorm: 134145 1 TD Q72H 01/10/2017 02/26/2017 Inactive ibuprofen 200 mg tablet RxNorm: 637997 1 Tablet(s) PO No Start Date Active vitamin E (dl, acetate) oral RxNorm: oral No Start Date Active Viagra 100 mg tablet RxNorm: 535375 1 Tablet(s) PO PRN sexual encounter No Start Date 10/01/2017 Inactive promethazine 6.25 mg-codeine 10 mg/5 mL syrup RxNorm: 211636 5-10 Milliliter(s) PO Q6 as needed No Start Date 10/01/2017 Inactive Medication Administered No Medication Administered data Immunizations No Immunization data Assessments Condition Codes Effective Dates Pain in left foot ICD-10: M79.672 ICD-9: 729.5 02/22/2018 Generalized anxiety disorder ICD-10: F41.1 ICD-9: 300.00 [...] For Visit Effective Dates Notes foot pain 02/22/2018 memory loss 02/01/2018 wound follow up 01/02/2018 office procedure 12/21/2017 abdominal pain 11/22/2017 abdominal pain 07/19/2017 abdominal pain 06/05/2017 arthralgia(s) 05/03/2017 nausea 02/27/2017 nausea 01/10/2017 nausea 12/05/2016 Results Observation Observation Code Item Item Code Result Date Cbc With Differential Ord2 WBC 3.53 K/ul [...] 32.5 pg 03/26/2018 Cbc With Differential Ord2 Mckenzie% 9.3 % 03/26/2018 Cbc With Differential Ord2 [...] 0.52 K/ul 03/26/2018 Cbc With Differential Ord2 Mckenzie ABS# 0.3 K/ul 03/26/2018 Cbc With Differential Ord2 Eos ABS# 0.1 K/ul 03/26/2018 Cbc With Differential Ord2 Baso ABS# 0.0 K/ul 03/26/2018 Comp Metabolic Yqy139 NA 139 mEq/L 12/18/2017 Comp Metabolic Kcr508 K 4.6 mEq/L 12/18/2017 Comp Metabolic Ojs891 CL 105 mEq/L 12/18/2017 Comp Metabolic Ooi223 CO2 27.0 mEq/L 12/18/2017 Comp Metabolic Thc468 ANION GAP 12 12/18/2017 Comp Metabolic Bxt273 GLUCOSE 126 mg/dL 12/18/2017 Comp Metabolic Qip802 Creat 0.9 mg/dL 12/18/2017 Comp Metabolic Ykx146 eGFR 89 ml/min/1.73m2 12/18/2017 Comp Metabolic Tbk427 BUN 19 mg/dL 12/18/2017 Comp Metabolic Rxx212 B/C Ratio 21.3 Ratio 12/18/2017 Comp Metabolic Gaz086 CALCIUM 8.8 mg/dL 12/18/2017 Comp Metabolic Ncv598 ALK PHOS 99 U/L 12/18/2017 Comp Metabolic Tkr922 AST(SGOT) 31 U/L 12/18/2017 Comp Metabolic Bkf779 ALT(SGPT) 46 U/L 12/18/2017 Comp Metabolic Pky434 BILI T 0.5 mg/dL 12/18/2017 Comp Metabolic Fms795 ALBUMIN 3.9 g/dL 12/18/2017 Comp Metabolic Oue543 TPRO 5.8 g/dL 12/18/2017 Comp Metabolic Aao406 GLOB 2.0 g/dL 12/18/2017 Comp Metabolic Hjm580 A/G Ratio 2.0 Ratio 12/18/2017 Comp Metabolic Qeg116 Osmo 281 mOsmo 12/18/2017 Magnesium Ord90 Mag [...] 32.3 pg 12/18/2017 Cbc With Differential Ord2 Mckenzie% 6.8 % 12/18/2017 Cbc With Differential Ord2 [...] 0.53 K/ul 12/18/2017 Cbc With Differential Ord2 Mckenzie ABS# 0.3 K/ul 12/18/2017 Cbc With Differential [...] 32.1 pg 09/22/2017 Cbc With Differential Ord2 Mckenzie% 11.2 % 09/22/2017 Cbc With Differential Ord2 [...] 0.46 K/ul 09/22/2017 Cbc With Differential Ord2 Mckenzie ABS# 0.4 K/ul 09/22/2017 Cbc With Differential Ord2 Eos ABS# 0.1 K/ul 09/22/2017 Cbc With Differential Ord2 Baso ABS# 0.0 K/ul 09/22/2017 Uric Acid Ord77 Uric A 5.5 mg/dL 09/22/2017 Ldh Ord92 LDH 130 U/L 09/22/2017 Comp Metabolic Kky388 NA 141 mEq/L 09/22/2017 Comp Metabolic Rwm004 K 5.2 mEq/L 09/22/2017 Comp Metabolic Xle156 CL 106 mEq/L 09/22/2017 Comp Metabolic Veo719 CO2 29.0 mEq/L 09/22/2017 Comp Metabolic Lxc360 ANION GAP 11 09/22/2017 Comp Metabolic Sfk171 GLUCOSE 115 mg/dL 09/22/2017 Comp Metabolic Qtw170 Creat 0.9 mg/dL 09/22/2017 Comp Metabolic Gqz706 eGFR 88 ml/min/1.73m2 09/22/2017 Comp Metabolic Zmz350 BUN 18 mg/dL 09/22/2017 Comp Metabolic Mic448 B/C Ratio 20.0 Ratio 09/22/2017 Comp Metabolic Vpq429 CALCIUM 8.7 mg/dL 09/22/2017 Comp Metabolic Jme631 ALK PHOS 103 U/L 09/22/2017 Comp Metabolic Qxi745 AST(SGOT) 32 U/L 09/22/2017 Comp Metabolic Qbm459 ALT(SGPT) 51 U/L 09/22/2017 Comp Metabolic Sky694 BILI T 0.4 mg/dL 09/22/2017 Comp Metabolic Hzd867 ALBUMIN 3.8 g/dL 09/22/2017 Comp Metabolic Gkc188 TPRO 5.8 g/dL 09/22/2017 Comp Metabolic Zgx699 GLOB 2.0 g/dL 09/22/2017 Comp Metabolic Eft763 A/G Ratio 1.8 Ratio 09/22/2017 Comp Metabolic Qfy972 Osmo 284 mOsmo 09/22/2017 Comp Metabolic Gys343 NA 140 mEq/L 06/27/2017 Comp Metabolic Smm352 K 4.6 mEq/L 06/27/2017 Comp Metabolic Ugj319 CL 105 mEq/L 06/27/2017 Comp Metabolic Qoj071 CO2 30.0 mEq/L 06/27/2017 Comp Metabolic Lav578 ANION GAP 10 06/27/2017 Comp Metabolic Eya068 GLUCOSE 95 mg/dL 06/27/2017 Comp Metabolic Tui626 Creat 0.8 mg/dL 06/27/2017 Comp Metabolic Mwv165 eGFR 95 ml/min/1.73m2 06/27/2017 Comp Metabolic Qrz694 BUN 14 mg/dL 06/27/2017 Comp Metabolic Xcz077 B/C Ratio 16.7 Ratio 06/27/2017 Comp Metabolic Gtp519 CALCIUM 9.1 mg/dL 06/27/2017 Comp Metabolic Fer449 ALK PHOS 129 U/L 06/27/2017 Comp Metabolic Jgb238 AST(SGOT) 29 U/L 06/27/2017 Comp Metabolic Ndc610 ALT(SGPT) 33 U/L 06/27/2017 Comp Metabolic Axw472 BILI T 0.5 mg/dL 06/27/2017 Comp Metabolic Jyg145 ALBUMIN 3.9 g/dL 06/27/2017 Comp Metabolic Ffa005 TPRO 6.0 g/dL 06/27/2017 Comp Metabolic Yzv683 GLOB 2.1 g/dL 06/27/2017 Comp Metabolic Bak354 A/G Ratio 1.9 Ratio 06/27/2017 Comp Metabolic Khd801 Osmo 280 mOsmo 06/27/2017 Cbc With Differential [...] 13.7 % 06/27/2017 Cbc With Differential Ord2 Mckenzie% 9.8 % 06/27/2017 Cbc With Differential Ord2 [...] 0.50 K/ul 06/27/2017 Cbc With Differential Ord2 Mckenzie ABS# 0.4 K/ul 06/27/2017 Cbc With Differential Ord2 Eos ABS# 0.1 K/ul 06/27/2017 Cbc With Differential Ord2 Baso ABS# 0.0 K/ul 06/27/2017 Ldh Ord92 LDH 173 U/L 06/27/2017 Uric Acid Ord77 Uric A 5.1 mg/dL 06/27/2017 Celiac Disease Comprehensive 02703 IMMUNOGLOBULIN A-SERUM . 06/20/2017 Celi[facility] Disease [facility] 84646 IMMUNOGLOBULIN A-SERUM 89 mg/dL 06/20/2017 Celi[facility] 00840 GLIADIN ANTIBODY, IGG . 06/20/2017 Celi[facility] Disease [facility] 64246 GLIADIN ANTIBODY, IGG 3 EU/mL 06/20/2017 Celi[facility] Disease [facility] 53359 GLIADIN ANTIBODY, IGA . 06/20/2017 Celiac Disease Comprehensive 60435 GLIADIN ANTIBODY, IGA <9 EU/mL 06/20/2017 Celi[facility] Disease [facility] 83862 TISSUE TRANSGLUTAMINASE AB, IGG . 06/20/2017 Celi[facility] Disease Comprehensive 88358 TISSUE TRANSGLUTAMINASE-G 5 EU/mL 06/20/2017 Celiac Disease Comprehensive 82746 TISSUE TRANS. AB IGA W/REFLEX . 06/20/2017 Celiac Disease Comprehensive 31142 TISSUE TRANSGLUTAMINASE-A 6 EU/mL 06/20/2017 Allergen Profile, Comprehensive Food 21462 IMMUNOGLOBULIN E 3 IU/mL 06/19/2017 Allergen Profile, Comprehensive Food 18682 BACON'S YEAST <0.10 kU/L 06/19/2017 Allergen Profile, Comprehensive Food 58384 BARLEY <0.10 kU/L 06/19/2017 Allergen Profile, Comprehensive Food 78376 BEEF <0.10 kU/L 04/2017 Allergen Profile, Comprehensive Food 80323 CHICKEN MEAT <0.10 kU/L 06/19/2017 Allergen Profile, Comprehensive Food 76891 CHOCOLATE <0.10 kU/L 06/19/2017 Allergen Profile, Comprehensive Food 18413 COD <0.10 kU/L 04/2017 Allergen Profile, Comprehensive Food 63012 CORN <0.10 kU/L 04/2017 Allergen Profile, Comprehensive Food 08355 EGG WHITE <0.10 kU/L 06/19/2017 Allergen Profile, Comprehensive Food 65426 LETTUCE <0.10 kU/L 06/19/2017 Allergen Profile, Comprehensive Food 70620 MALT <0.10 kU/L 04/2017 Allergen Profile, Comprehensive Food 85982 MILK <0.10 kU/L 04/2017 Allergen Profile, Comprehensive Food 80705 OAT <0.10 kU/L 04/2017 Allergen Profile, Comprehensive Food 41837 ORANGE <0.10 kU/L 06/19/2017 Allergen Profile, Comprehensive Food 18187 PEANUT <0.10 kU/L 06/19/2017 Allergen Profile, Comprehensive Food 65202 PORK <0.10 kU/L 04/2017 Allergen Profile, Comprehensive Food 27374 POTATO <0.10 kU/L 06/19/2017 Allergen Profile, Comprehensive Food 75206 RYE <0.10 kU/L 04/2017 Allergen Profile, Comprehensive Food 41092 SHRIMP <0.10 kU/L 06/19/2017 Allergen Profile, Comprehensive Food 91810 SOYBEAN <0.10 kU/L 06/19/2017 Allergen Profile, Comprehensive Food 85862 TOMATO <0.10 kU/L 06/19/2017 Allergen Profile, Comprehensive Food 65969 WALNUT <0.10 kU/L 06/19/2017 Allergen Profile, Comprehensive Food 24445 WHEAT <0.10 kU/L Allergen Profile, Comprehensive Food 31238 STRAWBERRY <0.10 kU/L 06/19/2017 Allergen Profile, Comprehensive Food 35379 ALLERGEN INTERPRETATION 06/19/2017 Testosterone Pkv299 Testo 288.8 ng/dL 05/11/2017 Uric Acid Ord77 Uric A 6.0 mg/dL 05/05/2017 C-Reactive Protein Qnt Crqnt CRP 0.3 mg/dl 05/05/2017 Comp Metabolic Vdv019 NA 140 mEq/L 05/05/2017 Comp Metabolic Vcj695 K 4.1 mEq/L 05/05/2017 Comp Metabolic Oxl146 CL 106 mEq/L 05/05/2017 Comp Metabolic Fmw765 CO2 27.0 mEq/L 05/05/2017 Comp Metabolic Neq072 ANION GAP 11 05/05/2017 Comp Metabolic Vqu448 GLUCOSE 107 mg/dL 05/05/2017 Comp Metabolic Rfd441 Creat 0.9 mg/dL 05/05/2017 Comp Metabolic Kyo263 eGFR 89 ml/min/1.73m2 05/05/2017 Comp Metabolic Yvx892 BUN 10 mg/dL 05/05/2017 Comp Metabolic Nph223 B/C Ratio 11.2 Ratio 05/05/2017 Comp Metabolic Dyk437 CALCIUM 8.6 mg/dL 05/05/2017 Comp Metabolic Yvj634 ALK PHOS 96 U/L 05/05/2017 Comp Metabolic Zle615 AST(SGOT) 36 U/L 05/05/2017 Comp Metabolic Qwl205 ALT(SGPT) 40 U/L 05/05/2017 Comp Metabolic Rjx904 BILI T 0.3 mg/dL 05/05/2017 Comp Metabolic Hwd932 ALBUMIN 3.8 g/dL 05/05/2017 Comp Metabolic Rye665 TPRO 5.8 g/dL 05/05/2017 Comp Metabolic Xmo716 GLOB 2.0 g/dL 05/05/2017 Comp Metabolic Cij250 A/G Ratio 1.9 Ratio 05/05/2017 Comp Metabolic Oel102 Osmo 279 mOsmo 05/05/2017 Sed Rate Ord21 [...] 31.5 pg 05/05/2017 Cbc With Differential Ord2 Mckenzie% 20.6 % 05/05/2017 Cbc With Differential Ord2 [...] 0.27 K/ul 05/05/2017 Cbc With Differential Ord2 Mckenzie ABS# 0.5 K/ul 05/05/2017 Cbc With Differential Ord2 Eos ABS# 0.1 K/ul 05/05/2017 Cbc With Differential Ord2 Baso ABS# 0.0 K/ul 05/05/2017 Magnesium Ord90 Mag 2.2 mg/dL 04/25/2017 Comp Metabolic Eea235 NA 143 mEq/L 04/25/2017 Comp Metabolic Fmh512 K 4.2 mEq/L 04/25/2017 Comp Metabolic Tqk438 CL 108 mEq/L 04/25/2017 Comp Metabolic Cfq176 CO2 30.0 mEq/L 04/25/2017 Comp Metabolic Yla732 ANION GAP 9 04/25/2017 Comp Metabolic Kmh781 GLUCOSE 80 mg/dL 04/25/2017 Comp Metabolic Iyz630 Creat 0.9 mg/dL 04/25/2017 Comp Metabolic Uhn928 eGFR 84 ml/min/1.73m2 04/25/2017 Comp Metabolic Mvh560 BUN 16 mg/dL 04/25/2017 Comp Metabolic Glw610 B/C Ratio 17.0 Ratio 04/25/2017 Comp Metabolic Nqg511 CALCIUM 9.0 mg/dL 04/25/2017 Comp Metabolic Sxa778 ALK PHOS 93 U/L 04/25/2017 Comp Metabolic Aec213 AST(SGOT) 32 U/L 04/25/2017 Comp Metabolic Gax404 ALT(SGPT) 36 U/L 04/25/2017 Comp Metabolic Epo248 BILI T 0.5 mg/dL 04/25/2017 Comp Metabolic Zxa296 ALBUMIN 3.9 g/dL 04/25/2017 Comp Metabolic Vbz329 TPRO 6.0 g/dL 04/25/2017 Comp Metabolic Cyc893 GLOB 2.1 g/dL 04/25/2017 Comp Metabolic Iar399 A/G Ratio 1.8 Ratio 04/25/2017 Comp Metabolic Sgt783 Osmo 285 mOsmo 04/25/2017 Cbc With Differential [...] 31.8 pg 04/25/2017 Cbc With Differential Ord2 Mckenzie% 10.2 % 04/25/2017 Cbc With Differential Ord2 [...] 0.32 K/ul 04/25/2017 Cbc With Differential Ord2 Mckenzie ABS# 0.5 K/ul 04/25/2017 Cbc With Differential Ord2 Eos ABS# 0.1 K/ul 04/25/2017 Cbc With Differential Ord2 Baso ABS# 0.0 K/ul 04/25/2017 Uric Acid Ord77 Uric A 6.0 mg/dL 04/25/2017 Comp Metabolic Dkj671 NA 142 mEq/L 04/18/2017 Comp Metabolic Gvz378 K 4.3 mEq/L 04/18/2017 Comp Metabolic Pzf721 CL 105 mEq/L 04/18/2017 Comp Metabolic Kah767 CO2 30.0 mEq/L 04/18/2017 Comp Metabolic Mfz574 ANION GAP 11 04/18/2017 Comp Metabolic Rxh123 GLUCOSE 126 mg/dL 04/18/2017 Comp Metabolic Kbc342 Creat 1.0 mg/dL 04/18/2017 Comp Metabolic Vhw740 eGFR 83 ml/min/1.73m2 04/18/2017 Comp Metabolic Rxs189 BUN 17 mg/dL 04/18/2017 Comp Metabolic Xrf729 B/C Ratio 17.9 Ratio 04/18/2017 Comp Metabolic Lhw872 CALCIUM 9.0 mg/dL 04/18/2017 Comp Metabolic Lpe519 ALK PHOS 100 U/L 04/18/2017 Comp Metabolic Eaj513 AST(SGOT) 27 U/L 04/18/2017 Comp Metabolic Hzs539 ALT(SGPT) 36 U/L 04/18/2017 Comp Metabolic Ydv338 BILI T 0.5 mg/dL 04/18/2017 Comp Metabolic Ohg738 ALBUMIN 3.8 g/dL 04/18/2017 Comp Metabolic Feh369 TPRO 6.0 g/dL 04/18/2017 Comp Metabolic Uji332 GLOB 2.2 g/dL 04/18/2017 Comp Metabolic Zpf145 A/G Ratio 1.8 Ratio 04/18/2017 Comp Metabolic Gvq878 Osmo 286 mOsmo 04/18/2017 Uric Acid Ord77 [...] 6.0 % 04/18/2017 Cbc With Differential Ord2 Mckenzie% 9.6 % 04/18/2017 Cbc With Differential Ord2 [...] 0.23 K/ul 04/18/2017 Cbc With Differential Ord2 Mckenzie ABS# 0.4 K/ul 04/18/2017 Cbc With Differential [...] 32.0 pg 03/30/2017 Cbc With Differential Ord2 Mckenzie% 12.1 % 03/30/2017 Cbc With Differential Ord2 [...] 0.42 K/ul 03/30/2017 Cbc With Differential Ord2 Mckenzie ABS# 0.8 K/ul 03/30/2017 Cbc With Differential Ord2 Eos ABS# 0.1 K/ul 03/30/2017 Cbc With Differential Ord2 Baso ABS# 0.0 K/ul 03/30/2017 Comp Metabolic Edg332 NA 141 mEq/L 03/30/2017 Comp Metabolic Ttn591 K 4.7 mEq/L 03/30/2017 Comp Metabolic Llp568 CL 106 mEq/L 03/30/2017 Comp Metabolic Zfv599 CO2 28.0 mEq/L 03/30/2017 Comp Metabolic Lrj394 ANION GAP 12 03/30/2017 Comp Metabolic Uvu863 GLUCOSE 81 mg/dL 03/30/2017 Comp Metabolic Sgd729 Creat 1.0 mg/dL 03/30/2017 Comp Metabolic Erl658 eGFR 80 ml/min/1.73m2 03/30/2017 Comp Metabolic Rgn230 BUN 17 mg/dL 03/30/2017 Comp Metabolic Wdr610 B/C Ratio 17.3 Ratio 03/30/2017 Comp Metabolic Dtb404 CALCIUM 8.9 mg/dL 03/30/2017 Comp Metabolic Xvv805 ALK PHOS 106 U/L 03/30/2017 Comp Metabolic Gib799 AST(SGOT) 52 U/L 03/30/2017 Comp Metabolic Xfv558 ALT(SGPT) 54 U/L 03/30/2017 Comp Metabolic Pgw470 BILI T 0.4 mg/dL 03/30/2017 Comp Metabolic Cnh605 ALBUMIN 3.8 g/dL 03/30/2017 Comp Metabolic Jbx910 TPRO 6.2 g/dL 03/30/2017 Comp Metabolic Njy095 GLOB 2.4 g/dL 03/30/2017 Comp Metabolic Opc910 A/G Ratio 1.6 Ratio 03/30/2017 Comp Metabolic Lhp044 Osmo 282 mOsmo 03/30/2017 Uric Acid Ord77 [...] 32.0 pg 03/23/2017 Cbc With Differential Ord2 Mckenzie% 10.7 % 03/23/2017 Cbc With Differential Ord2 [...] 0.31 K/ul 03/23/2017 Cbc With Differential Ord2 Mckenzie ABS# 0.6 K/ul 03/23/2017 Cbc With Differential Ord2 Eos ABS# 0.1 K/ul 03/23/2017 Cbc With Differential Ord2 Baso ABS# 0.0 K/ul 03/23/2017 Magnesium Ord90 Mag 2.0 mg/dL 03/23/2017 Comp Metabolic Ytv615 NA 140 mEq/L 03/23/2017 Comp Metabolic Oeg482 K 4.4 mEq/L 03/23/2017 Comp Metabolic Hgg150 CL 105 mEq/L 03/23/2017 Comp Metabolic Ovs065 CO2 30.0 mEq/L 03/23/2017 Comp Metabolic Dpe058 ANION GAP 9 03/23/2017 Comp Metabolic Zuh793 GLUCOSE 75 mg/dL 03/23/2017 Comp Metabolic Ugu721 Creat 0.9 mg/dL 03/23/2017 Comp Metabolic Yth808 eGFR 87 ml/min/1.73m2 03/23/2017 Comp Metabolic Kkz255 BUN 17 mg/dL 03/23/2017 Comp Metabolic Gwd622 B/C Ratio 18.7 Ratio 03/23/2017 Comp Metabolic Ovq413 CALCIUM 9.0 mg/dL 03/23/2017 Comp Metabolic Dzd838 ALK PHOS 91 U/L 03/23/2017 Comp Metabolic Fes620 AST(SGOT) 27 U/L 03/23/2017 Comp Metabolic Otv842 ALT(SGPT) 30 U/L 03/23/2017 Comp Metabolic Hqs941 BILI T 0.4 mg/dL 03/23/2017 Comp Metabolic Wvz668 ALBUMIN 3.8 g/dL 03/23/2017 Comp Metabolic Nam936 TPRO 6.1 g/dL 03/23/2017 Comp Metabolic Lsk961 GLOB 2.3 g/dL 03/23/2017 Comp Metabolic Inu816 A/G Ratio 1.7 Ratio 03/23/2017 Comp Metabolic Xve894 Osmo 280 mOsmo 03/23/2017 Uric Acid Ord77 [...] 94.0 fl 03/06/2017 Cbc With Differential Ord2 Mckenzie% 11.4 % 03/06/2017 Cbc With Differential Ord2 [...] 0.33 K/ul 03/06/2017 Cbc With Differential Ord2 Mckenzie ABS# 0.5 K/ul 03/06/2017 Cbc With Differential Ord2 Eos ABS# 0.1 K/ul 03/06/2017 Cbc With Differential Ord2 Baso ABS# 0.0 K/ul 03/06/2017 Comp Metabolic Jin728 NA 143 mEq/L 03/06/2017 Comp Metabolic Csf878 K 4.1 mEq/L 03/06/2017 Comp Metabolic Pqp949 CL 107 mEq/L 03/06/2017 Comp Metabolic Fde373 CO2 29.0 mEq/L 03/06/2017 Comp Metabolic Edf329 ANION GAP 11 03/06/2017 Comp Metabolic Ukt423 GLUCOSE 129 mg/dL 03/06/2017 Comp Metabolic Zbt795 Creat 0.9 mg/dL 03/06/2017 Comp Metabolic Wyt391 eGFR 88 ml/min/1.73m2 03/06/2017 Comp Metabolic Cey773 BUN 15 mg/dL 03/06/2017 Comp Metabolic Bgn772 B/C Ratio 16.7 Ratio 03/06/2017 Comp Metabolic Xyj666 CALCIUM 8.7 mg/dL 03/06/2017 Comp Metabolic Wdb051 ALK PHOS 99 U/L 03/06/2017 Comp Metabolic Dne118 AST(SGOT) 29 U/L 03/06/2017 Comp Metabolic Kqa476 ALT(SGPT) 30 U/L 03/06/2017 Comp Metabolic Jul328 BILI T 0.4 mg/dL 03/06/2017 Comp Metabolic Nkx567 ALBUMIN 3.8 g/dL 03/06/2017 Comp Metabolic Emy771 TPRO 5.9 g/dL 03/06/2017 Comp Metabolic Obx685 GLOB 2.1 g/dL 03/06/2017 Comp Metabolic Vph851 A/G Ratio 1.9 Ratio 03/06/2017 Comp Metabolic Cah115 Osmo 288 mOsmo 03/06/2017 Cbc With Differential [...] 94.1 fl 02/27/2017 Cbc With Differential Ord2 Mckenzie% 10.1 % 02/27/2017 Cbc With Differential Ord2 [...] 0.32 K/ul 02/27/2017 Cbc With Differential Ord2 Mckenzie ABS# 0.6 K/ul 02/27/2017 Cbc With Differential Ord2 Eos ABS# 0.1 K/ul 02/27/2017 Cbc With Differential Ord2 Baso ABS# 0.0 K/ul 02/27/2017 Uric Acid Ord77 Uric A 5.5 mg/dL 02/27/2017 Magnesium Ord90 Mag 2.2 mg/dL 02/27/2017 Comp Metabolic Por515 NA 141 mEq/L 02/27/2017 Comp Metabolic Put813 K 4.5 mEq/L 02/27/2017 Comp Metabolic Vae667 CL 105 mEq/L 02/27/2017 Comp Metabolic Nwk883 CO2 30.0 mEq/L 02/27/2017 Comp Metabolic Vtk973 ANION GAP 11 02/27/2017 Comp Metabolic Acl613 GLUCOSE 73 mg/dL 02/27/2017 Comp Metabolic Hov398 Creat 0.9 mg/dL 02/27/2017 Comp Metabolic Aue275 eGFR 87 ml/min/1.73m2 02/27/2017 Comp Metabolic Pcs818 BUN 17 mg/dL 02/27/2017 Comp Metabolic Jmd759 B/C Ratio 18.7 Ratio 02/27/2017 Comp Metabolic Fdx540 CALCIUM 8.8 mg/dL 02/27/2017 Comp Metabolic Iim948 ALK PHOS 93 U/L 02/27/2017 Comp Metabolic Cvk324 AST(SGOT) 31 U/L 02/27/2017 Comp Metabolic Ugg887 ALT(SGPT) 35 U/L 02/27/2017 Comp Metabolic Adz320 BILI T 0.4 mg/dL 02/27/2017 Comp Metabolic Uoo450 ALBUMIN 3.9 g/dL 02/27/2017 Comp Metabolic Jxi880 TPRO 5.9 g/dL 02/27/2017 Comp Metabolic Tjd105 GLOB 2.0 g/dL 02/27/2017 Comp Metabolic Mbv404 A/G Ratio 2.0 Ratio 02/27/2017 Comp Metabolic Tid476 Osmo 281 mOsmo 02/27/2017 Magnesium Ord90 Mag [...] 32.0 pg 02/21/2017 Cbc With Differential Ord2 Mckenzie% 9.0 % 02/21/2017 Cbc With Differential Ord2 [...] 0.31 K/ul 02/21/2017 Cbc With Differential Ord2 Mckenzie ABS# 0.5 K/ul 02/21/2017 Cbc With Differential Ord2 Eos ABS# 0.1 K/ul 02/21/2017 Cbc With Differential Ord2 Baso ABS# 0.0 K/ul 02/21/2017 Uric Acid Ord77 Uric A 5.0 mg/dL 02/21/2017 Comp Metabolic Tsv507 NA 134 mEq/L 02/21/2017 Comp Metabolic Eag118 K 4.3 mEq/L 02/21/2017 Comp Metabolic Cru497 CL 100 mEq/L 02/21/2017 Comp Metabolic Zju621 CO2 28.0 mEq/L 02/21/2017 Comp Metabolic Vkh498 ANION GAP 10 02/21/2017 Comp Metabolic Mfk530 GLUCOSE 130 mg/dL 02/21/2017 Comp Metabolic Xcx725 Creat 1.0 mg/dL 02/21/2017 Comp Metabolic Keh313 eGFR 77 ml/min/1.73m2 02/21/2017 Comp Metabolic Dzw154 BUN 17 mg/dL 02/21/2017 Comp Metabolic Nyr993 B/C Ratio 16.8 Ratio 02/21/2017 Comp Metabolic Pew470 CALCIUM 9.1 mg/dL 02/21/2017 Comp Metabolic Rce789 ALK PHOS 92 U/L 02/21/2017 Comp Metabolic Zqk488 AST(SGOT) 23 U/L 02/21/2017 Comp Metabolic Aut090 ALT(SGPT) 29 U/L 02/21/2017 Comp Metabolic Nnw816 BILI T 0.3 mg/dL 02/21/2017 Comp Metabolic Lub396 ALBUMIN 3.9 g/dL 02/21/2017 Comp Metabolic Vxb306 TPRO 6.1 g/dL 02/21/2017 Comp Metabolic Uox287 GLOB 2.2 g/dL 02/21/2017 Comp Metabolic Cda934 A/G Ratio 1.8 Ratio 02/21/2017 Comp Metabolic Fxt685 Osmo 272 mOsmo 02/21/2017 Uric Acid Ord77 Uric A 4.2 mg/dL 02/07/2017 Comp Metabolic Bbf543 NA 139 mEq/L 02/07/2017 Comp Metabolic Ggl476 K 4.6 mEq/L 02/07/2017 Comp Metabolic Jsg622 CL 106 mEq/L 02/07/2017 Comp Metabolic Qdu814 CO2 29.0 mEq/L 02/07/2017 Comp Metabolic Agn018 ANION GAP 9 02/07/2017 Comp Metabolic Njz435 GLUCOSE 99 mg/dL 02/07/2017 Comp Metabolic Jvb171 Creat 0.9 mg/dL 02/07/2017 Comp Metabolic Ddq400 eGFR 92 ml/min/1.73m2 02/07/2017 Comp Metabolic Qwu320 BUN 19 mg/dL 02/07/2017 Comp Metabolic Hgf283 B/C Ratio 21.8 Ratio 02/07/2017 Comp Metabolic Zjz264 CALCIUM 8.8 mg/dL 02/07/2017 Comp Metabolic Sby052 ALK PHOS 81 U/L 02/07/2017 Comp Metabolic Ncj037 AST(SGOT) 22 U/L 02/07/2017 Comp Metabolic Tmh621 ALT(SGPT) 24 U/L 02/07/2017 Comp Metabolic Fwt147 BILI T 0.3 mg/dL 02/07/2017 Comp Metabolic Scf438 ALBUMIN 3.9 g/dL 02/07/2017 Comp Metabolic Yuk023 TPRO 5.8 g/dL 02/07/2017 Comp Metabolic Vhl755 GLOB 1.9 g/dL 02/07/2017 Comp Metabolic Sse154 A/G Ratio 2.0 Ratio 02/07/2017 Comp Metabolic Zxh392 Osmo 280 mOsmo 02/07/2017 Cbc With Differential [...] 31.9 pg 02/07/2017 Cbc With Differential Ord2 Mckenzie% 12.0 % 02/07/2017 Cbc With Differential Ord2 [...] 0.44 K/ul 02/07/2017 Cbc With Differential Ord2 Mckenzie ABS# 0.5 K/ul 02/07/2017 Cbc With Differential Ord2 Eos ABS# 0.1 K/ul 02/07/2017 Cbc With Differential Ord2 Baso ABS# 0.0 K/ul 02/07/2017 Magnesium Ord90 Mag 2.1 mg/dL 02/07/2017 Comp Metabolic Ahh757 NA 142 mEq/L 01/31/2017 Comp Metabolic Hua559 K 4.7 mEq/L 01/31/2017 Comp Metabolic Alt657 CL 106 mEq/L 01/31/2017 Comp Metabolic Gpq133 CO2 32.0 mEq/L 01/31/2017 Comp Metabolic Bwo535 ANION GAP 9 01/31/2017 Comp Metabolic Lrd389 GLUCOSE 93 mg/dL 01/31/2017 Comp Metabolic Xqe065 Creat 1.0 mg/dL 01/31/2017 Comp Metabolic Qyn616 eGFR 83 ml/min/1.73m2 01/31/2017 Comp Metabolic Ctt487 BUN 20 mg/dL 01/31/2017 Comp Metabolic Uew342 B/C Ratio 21.1 Ratio 01/31/2017 Comp Metabolic Fej602 CALCIUM 9.1 mg/dL 01/31/2017 Comp Metabolic Ewu695 ALK PHOS 80 U/L 01/31/2017 Comp Metabolic Dvw462 AST(SGOT) 22 U/L 01/31/2017 Comp Metabolic Jsd406 ALT(SGPT) 24 U/L 01/31/2017 Comp Metabolic Jev024 BILI T 0.4 mg/dL 01/31/2017 Comp Metabolic Iqb668 ALBUMIN 4.0 g/dL 01/31/2017 Comp Metabolic Ekh058 TPRO 6.0 g/dL 01/31/2017 Comp Metabolic Czw708 GLOB 2.1 g/dL 01/31/2017 Comp Metabolic Asd656 A/G Ratio 1.9 Ratio 01/31/2017 Comp Metabolic Yzh767 Osmo 285 mOsmo 01/31/2017 Cbc With Differential [...] 94.4 fl 01/31/2017 Cbc With Differential Ord2 Mckenzie% 7.9 % 01/31/2017 Cbc With Differential Ord2 [...] 0.38 K/ul 01/31/2017 Cbc With Differential Ord2 Mckenzie ABS# 0.6 K/ul 01/31/2017 Cbc With Differential [...] 32.1 pg 01/23/2017 Cbc With Differential Ord2 Mckenzie% 8.9 % 01/23/2017 Cbc With Differential Ord2 [...] 0.42 K/ul 01/23/2017 Cbc With Differential Ord2 Mckenzie ABS# 0.5 K/ul 01/23/2017 Cbc With Differential Ord2 Eos ABS# 0.1 K/ul 01/23/2017 Cbc With Differential Ord2 Baso ABS# 0.0 K/ul 01/23/2017 Uric Acid Ord77 Uric A 5.4 mg/dL 01/23/2017 Comp Metabolic Xzr047 NA 141 mEq/L 01/23/2017 Comp Metabolic Bxx596 K 4.4 mEq/L 01/23/2017 Comp Metabolic Scn696 CL 104 mEq/L 01/23/2017 Comp Metabolic Zld292 CO2 31.0 mEq/L 01/23/2017 Comp Metabolic Bdn370 ANION GAP 10 01/23/2017 Comp Metabolic Iqz153 GLUCOSE 109 mg/dL 01/23/2017 Comp Metabolic Pqh169 Creat 1.1 mg/dL 01/23/2017 Comp Metabolic Abv069 eGFR 71 ml/min/1.73m2 01/23/2017 Comp Metabolic Ayk969 BUN 22 mg/dL 01/23/2017 Comp Metabolic Cgd188 B/C Ratio 20.4 Ratio 01/23/2017 Comp Metabolic Mxg734 CALCIUM 9.1 mg/dL 01/23/2017 Comp Metabolic Vtl486 ALK PHOS 76 U/L 01/23/2017 Comp Metabolic Gmq852 AST(SGOT) 22 U/L 01/23/2017 Comp Metabolic Ecx458 ALT(SGPT) 22 U/L 01/23/2017 Comp Metabolic Jbf055 BILI T 0.4 mg/dL 01/23/2017 Comp Metabolic Nxk949 ALBUMIN 3.8 g/dL 01/23/2017 Comp Metabolic Mrv897 TPRO 5.9 g/dL 01/23/2017 Comp Metabolic Wdw024 GLOB 2.1 g/dL 01/23/2017 Comp Metabolic Zgw609 A/G Ratio 1.8 Ratio 01/23/2017 Comp Metabolic Tzc197 Osmo 285 mOsmo 01/23/2017 Testosterone Ufv416 Testo 321.3 ng/dL 01/10/2017 Comp Metabolic Sqf813 NA 141 mEq/L 01/10/2017 Comp Metabolic Umt675 K 4.8 mEq/L 01/10/2017 Comp Metabolic Izo765 CL 106 mEq/L 01/10/2017 Comp Metabolic Dss684 CO2 29.0 mEq/L 01/10/2017 Comp Metabolic Hex158 ANION GAP 11 01/10/2017 Comp Metabolic Zmm175 GLUCOSE 73 mg/dL 01/10/2017 Comp Metabolic Dmh730 Creat 0.9 mg/dL 01/10/2017 Comp Metabolic Ygl985 eGFR 93 ml/min/1.73m2 01/10/2017 Comp Metabolic Adp022 BUN 19 mg/dL 01/10/2017 Comp Metabolic Fbe534 B/C Ratio 22.1 Ratio 01/10/2017 Comp Metabolic Uts822 CALCIUM 9.0 mg/dL 01/10/2017 Comp Metabolic Gkw434 ALK PHOS 80 U/L 01/10/2017 Comp Metabolic Kxy666 AST(SGOT) 24 U/L 01/10/2017 Comp Metabolic Yvs821 ALT(SGPT) 28 U/L 01/10/2017 Comp Metabolic Tyz415 BILI T 0.4 mg/dL 01/10/2017 Comp Metabolic Xeq914 ALBUMIN 3.8 g/dL 01/10/2017 Comp Metabolic Cko083 TPRO 5.9 g/dL 01/10/2017 Comp Metabolic Bet116 GLOB 2.1 g/dL 01/10/2017 Comp Metabolic Trf936 A/G Ratio 1.9 Ratio 01/10/2017 Comp Metabolic Nqm919 Osmo 282 mOsmo 01/10/2017 Cbc With Differential [...] 31.9 pg 01/10/2017 Cbc With Differential Ord2 Mckenzie% 9.6 % 01/10/2017 Cbc With Differential Ord2 [...] 0.62 K/ul 01/10/2017 Cbc With Differential Ord2 Mckenzie ABS# 0.6 K/ul 01/10/2017 Cbc With Differential [...] 31.8 pg 01/03/2017 Cbc With Differential Ord2 Mckenzie% 8.6 % 01/03/2017 Cbc With Differential Ord2 [...] 0.42 K/ul 01/03/2017 Cbc With Differential Ord2 Mckenzie ABS# 0.5 K/ul 01/03/2017 Cbc With Differential Ord2 Eos ABS# 0.1 K/ul 01/03/2017 Cbc With Differential Ord2 Baso ABS# 0.0 K/ul 01/03/2017 Comp Metabolic Cwk961 NA 140 mEq/L 01/03/2017 Comp Metabolic Ggq101 K 4.7 mEq/L 01/03/2017 Comp Metabolic Ako105 CL 106 mEq/L 01/03/2017 Comp Metabolic Oou409 CO2 28.0 mEq/L 01/03/2017 Comp Metabolic Okb370 ANION GAP 11 01/03/2017 Comp Metabolic Gsl868 GLUCOSE 126 mg/dL 01/03/2017 Comp Metabolic Hmm821 Creat 0.9 mg/dL 01/03/2017 Comp Metabolic Aae151 eGFR 88 ml/min/1.73m2 01/03/2017 Comp Metabolic Rlp403 BUN 23 mg/dL 01/03/2017 Comp Metabolic Ftu675 B/C Ratio 25.6 Ratio 01/03/2017 Comp Metabolic Jez193 CALCIUM 8.8 mg/dL 01/03/2017 Comp Metabolic Ppu163 ALK PHOS 73 U/L 01/03/2017 Comp Metabolic Dos881 AST(SGOT) 25 U/L 01/03/2017 Comp Metabolic Blp043 ALT(SGPT) 30 U/L 01/03/2017 Comp Metabolic Qsj470 BILI T 0.4 mg/dL 01/03/2017 Comp Metabolic Ucj361 ALBUMIN 3.9 g/dL 01/03/2017 Comp Metabolic Dto814 TPRO 5.9 g/dL 01/03/2017 Comp Metabolic Qki609 GLOB 2.1 g/dL 01/03/2017 Comp Metabolic Esj276 A/G Ratio 1.9 Ratio 01/03/2017 Comp Metabolic Sgf078 Osmo 285 mOsmo 01/03/2017 Cbc With Differential [...] 31.7 pg 12/12/2016 Cbc With Differential Ord2 Mckenzie% 8.9 % 12/12/2016 Cbc With Differential Ord2 [...] 0.80 K/ul 12/12/2016 Cbc With Differential Ord2 Mckenzie ABS# 0.5 K/ul 12/12/2016 Cbc With Differential Ord2 Eos ABS# 0.1 K/ul 12/12/2016 Cbc With Differential Ord2 Baso ABS# 0.1 K/ul 12/12/2016 Comp Metabolic Sgy140 NA 140 mEq/L 12/12/2016 Comp Metabolic Bnm910 K 3.8 mEq/L 12/12/2016 Comp Metabolic Yik318 CL 105 mEq/L 12/12/2016 Comp Metabolic Cif516 CO2 26.0 mEq/L 12/12/2016 Comp Metabolic Kbm766 ANION GAP 13 12/12/2016 Comp Metabolic Vcl538 GLUCOSE 112 mg/dL 12/12/2016 Comp Metabolic Ovn290 Creat 0.9 mg/dL 12/12/2016 Comp Metabolic Iji648 eGFR 89 ml/min/1.73m2 12/12/2016 Comp Metabolic Jpr048 BUN 16 mg/dL 12/12/2016 Comp Metabolic Kxf870 B/C Ratio 18.0 Ratio 12/12/2016 Comp Metabolic Ajp694 CALCIUM 8.6 mg/dL 12/12/2016 Comp Metabolic Ivr593 ALK PHOS 80 U/L 12/12/2016 Comp Metabolic Bns772 AST(SGOT) 21 U/L 12/12/2016 Comp Metabolic Wok125 ALT(SGPT) 23 U/L 12/12/2016 Comp Metabolic Apo210 BILI T 0.4 mg/dL 12/12/2016 Comp Metabolic Ygf706 ALBUMIN 3.7 g/dL 12/12/2016 Comp Metabolic Dsl550 TPRO 5.6 g/dL 12/12/2016 Comp Metabolic Bfi407 GLOB 1.9 g/dL 12/12/2016 Comp Metabolic Mct517 A/G Ratio 2.0 Ratio 12/12/2016 Comp Metabolic Bju978 Osmo 281 mOsmo 12/12/2016 Comp Metabolic Zqp868 NA 140 mEq/L 12/05/2016 Comp Metabolic Dvm092 K 4.6 mEq/L 12/05/2016 Comp Metabolic Brd394 CL 104 mEq/L 12/05/2016 Comp Metabolic Rzj283 CO2 29.0 mEq/L 12/05/2016 Comp Metabolic Jol533 ANION GAP 12 12/05/2016 Comp Metabolic Hee689 GLUCOSE 93 mg/dL 12/05/2016 Comp Metabolic Hbz186 Creat 0.8 mg/dL 12/05/2016 Comp Metabolic Yvv531 eGFR 98 ml/min/1.73m2 12/05/2016 Comp Metabolic Ium859 BUN 20 mg/dL 12/05/2016 Comp Metabolic Nzz532 B/C Ratio 24.4 Ratio 12/05/2016 Comp Metabolic Kkh397 CALCIUM 8.8 mg/dL 12/05/2016 Comp Metabolic Yii691 ALK PHOS 82 U/L 12/05/2016 Comp Metabolic Wvc263 AST(SGOT) 24 U/L 12/05/2016 Comp Metabolic Qdo317 ALT(SGPT) 28 U/L 12/05/2016 Comp Metabolic Saz979 BILI T 0.4 mg/dL 12/05/2016 Comp Metabolic Gae160 ALBUMIN 3.9 g/dL 12/05/2016 Comp Metabolic Dyl095 TPRO 5.9 g/dL 12/05/2016 Comp Metabolic Fqx368 GLOB 2.0 g/dL 12/05/2016 Comp Metabolic Zmw293 A/G Ratio 2.0 Ratio 12/05/2016 Comp Metabolic Xxg947 Osmo 282 mOsmo 12/05/2016 Cbc With Differential [...] 31.3 pg 12/05/2016 Cbc With Differential Ord2 Mckenzie% 8.8 % 12/05/2016 Cbc With Differential Ord2 [...] 1.16 K/ul 12/05/2016 Cbc With Differential Ord2 Mckenzie ABS# 0.7 K/ul 12/05/2016 Cbc With Differential Ord2 Eos ABS# 0.2 K/ul 12/05/2016 Cbc With Differential Ord2 Baso ABS# 0.0 K/ul 12/05/2016 Review of Systems System Result Effective Dates Ears/Nose/Throat/Neck headache 2017 Constitutional No recent illness [...] clear 01/02/2018 None Full Exam - General 1995 Eyes conjunctiva /eyelids Overall: cornea clear 01/02/2018 None Full Exam - General 1994 Eyes conjunctiva /eyelids Overall: eyelids normal 01/02/2018 None Full Exam - General 1995 Ears/Nose/Throat lips/teeth/gingiva Overall: benign lips 01/02/2018 None [...] dentition 11/22/2017 None Full Exam - General 1995 Ears/Nose/Throat oral cavity/pharynx/larynx Overall: oral mucosa clear 11/22/2017 None Full Exam - General 1995 Ears/Nose/Throat oral cavity/pharynx/larynx Overall: oropharyngeal mucosa clear 11/22/2017 None Full Exam - General 1995 Ears/Nose/Throat oral cavity/pharynx/larynx Overall: hypopharynx benign 11/22/2017 [...] No Procedures data Vital Signs Date Vital 02/22/2018 Blood Pressure 1: 140/70 Code : 8480-6 BMI: 30.0 Code : 79645-5 Heart Rate 1 : 70 bpm Height: 6' SpO2: 98% Weight: 221 lbs 02/01/2018 Blood Pressure 1: 144/76 Code : 8480-6 BMI: 30.0 Code : 82749-5 Heart Rate 1 : 66 bpm Height: 6' SpO2: 99% Weight: 221 lbs 01/02/2018 Blood Pressure 1: 130/76 Code : 8480-6 BMI: 29.4 Code : 47664-6 Heart Rate 1 : 90 bpm Height: 6' SpO2: 99% Weight: 217 lbs 12/21/2017 Blood Pressure 1: 142/80 Code : 8480-6 BMI: 29.7 Code : 38642-9 Heart Rate 1 : 74 bpm Height: 6' SpO2: 96% Weight: 219 lbs 11/22/2017 Blood Pressure 1: 130/72 Code : 8480-6 BMI: 29.8 Code : 70198-8 Heart Rate 1 : 53 bpm Height: 6' SpO2: 97% Weight: 220 lbs 07/19/2017 Blood Pressure 1: 142/80 Code : 8480-6 BMI: 30.1 Code : 32243-9 Heart Rate 1 : 60 bpm Height: 6' SpO2: 99% Weight: 222 lbs 06/05/2017 Blood Pressure 1: 136/74 Code : 8480-6 BMI: 30.2 Code : 27323-6 Heart Rate 1 : 59 bpm Height: 6' SpO2: 98% Weight: 223 lbs 05/03/2017 Blood Pressure 1: 128/80 Code : 8480-6 BMI: 30.2 Code : 84620-1 Heart Rate 1 : 79 bpm Height: 6' SpO2: 98% Weight: 223 lbs 02/27/2017 Blood Pressure 1: 126/66 Code : 8480-6 BMI: 30.2 Code : 49570-6 Heart Rate 1 : 61 bpm Height: 6' SpO2: 99% Weight: 223 lbs 01/10/2017 Blood Pressure 1: 136/70 Code : 8480-6 BMI: 30.0 Code : 12914-6 Heart Rate 1 : 62 bpm Height: 6' SpO2: 98% Weight: 221 lbs 8 oz 12/05/2016 Blood Pressure 1: 138/74 Code : 8480-6 BMI: 29.3 Code : 16520-0 Heart Rate 1 : 62 bpm Height: 6' SpO2: 98% Weight: 216 lbs Functional Status No Functional Status data History of Present Illness Symptom Name Status Result Effective Date Notes Location on the left 02/22/2018 None Quality [...] data Encounters Encounter Performer Location Codes Date ([id number]) 22010 EST. PATIENT, LEVEL IV Diagnosis: Generalized anxiety disorder[ICD10: F41.1] Diagnosis: Pain in left foot[ICD10: M79.672] [facility] CPT-4: 79806 02/22/2018 ([id number]) 12151 EST. PATIENT, LEVEL IV Diagnosis: Generalized anxiety disorder[ICD10: F41.1] Diagnosis: Major depressive disorder, single episode, moderate[ICD10: F32.1] Diagnosis: Adjustment insomnia[ICD10: F51.02] Nalini Salomon MD, [facility] CPT-4: 71384 02/01/2018 17923 EST. PATIENT, LEVEL III Diagnosis: Generalized anxiety disorder[ICD10: F41.1] Diagnosis: Major depressive disorder, single episode, moderate[ICD10: F32.1] Leonor Salomon MD, [facility] CPT-4: 65306 01/02/2018 ([id number]) 77181 EST. PATIENT, LEVEL III Diagnosis: Concussion without loss of consciousness, initial encounter[ICD10: S06.0X0A] Diagnosis: Laceration without foreign body of other part of head, initial encounter[ICD10: S01.81XA] Harriet Salomon MD, [facility] CPT-4: 88137 12/21/2017 ([id number]) 07731 EST. 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 PATIENT, LEVEL III Diagnosis: Rash and other nonspecific skin eruption[ICD10: R21] Diagnosis: Slow transit constipation[ICD10: K59.01] Harriet Salomon MD, [facility] CPT-4: 41169 07/19/2017 ([id number]) 29904 EST. PATIENT, LEVEL III Diagnosis: Epigastric pain[ICD10: R10.13] Harriet Salomon MD, [facility] CPT- 4: 26721 06/05/2017 ([id number]) 08129 EST. 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 PATIENT, LEVEL IV Diagnosis: Chronic lymphocytic leukemia of B-cell type not having achieved remission[ICD10: C91.10] Diagnosis: Periumbilical pain[ICD10: R10.33] Harriet Salomon MD, [facility] CPT-4: 52920 02/27/2017 ([id number]) 15553 EST. 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] Diagnosis: Umbilical hernia without obstruction or gangrene[ICD10: K42.9] Harriet Salomon MD, [facility] CPT-4: 28661 01/10/2017 ([id number]) OFFICE VISIT, NEW - LEVEL 4 Diagnosis: Umbilical hernia without obstruction or gangrene[ICD10: K42.9] Diagnosis: Periumbilical pain[ICD10: R10.33] Diagnosis: Chronic lymphocytic leukemia of B-cell type not having achieved remission[ICD10: C91.10] Diagnosis: Slow transit constipation[ICD10: K59.01] Harriet Salomon MD, [facility] CPT-4: 53209 12/05/2016 Plan of Care Planned Activity Notes Codes Status Date Visit Plan: Pain in left foot - Rx for xray given to patient today. Anxiety - and Insomnia - continue with temazepam. Hx of Concussion and Attack by individual at work - he is feeling better, but still has some intermittent dizziness and still has some mood swings that he did not have prior to the attack. 02/22/2018 Appointment: Harriet Salomon WPtel: [phone] [facility] (15 min) Moderate 02/22/2018 Patient Education: Patient Medication Summary Completed 02/22/2018 Appointment: Harriet Salomon WPtel: [phone] [facility] (15 min) Moderate 02/21/2018 Visit Plan: Depression [...] time insomnia. 02/01/2018 Appointment: Nalini Lucas WPtel: [phone] [place] (15 min) Moderate 02/01/2018 Patient Education: Patient [...] this patient. 01/02/2018 Appointment: Leonor Niño WPtel: [facility] (15 min) Moderate 01/02/2018 Patient Education: Patient [...] at times. 12/21/2017 Appointment: Harriet Salomon WPtel: [address] [place], [place] [phone] (15 min) Moderate 12/21/2017 Patient Education: Patient [...] this time. 11/22/2017 Appointment: Harriet Salomon WPtel: [facility] [place] (15 min) Moderate 11/22/2017 Patient Education: Patient Medication Summary Completed 11/22/2017 Visit Plan: CLL - pt has finished chemotherapy - continue with follow up with Dr. Austin. Umbilical hernia -pt is not interested in surgery right now. Constipation - continue with current regimen - add prune juice - keep appt for colonoscopy and EGD. 07/19/2017 Appointment: Harriet Salomon WPtel: [facility] [place] (15 min) Moderate 07/19/2017 Patient Education: Patient Medication Summary Completed 07/19/2017 Visit Plan: Epigastric abdominal pain - pt advised to avoid dairy products - pt to start on start on the carafate and restart pepcid 06/05/2017 Appointment: Harriet Salomon WPtel: [facility] [place] (15 min) Moderate 06/05/2017 Patient Education: [...] to surgery. 05/03/2017 Appointment: [facility] [place] ([facility] min) Moderate 05/03/2017 Patient Education: Patient Medication Summary Completed 05/03/2017 Visit Plan: CLL - continue with chemotherapy. Umbilical hernia - agree with plans for pt to have re-evaluation with surgeon after his chemotherapy is complete. 02/27/2017 [phone] ([facility] min) Moderate 02/27/2017 Patient Education: Patient [...] is completed. 01/10/2017 Appointment: Harriet Salomon WPtel: [facility] (15 min) Moderate 01/10/2017 Patient Education: Patient Medication Summary Completed 01/10/2017 Patient Education: Obesity Completed 01/10/2017 Care Plan: ASSAY OF TOTAL TESTOSTERONE LOINC : 54334-3 Pending 01/10/2017 App[facility]ment: [phone] ([facility] min) Moderate 01/02/2017 Visit Plan: Umbilical [...] this regimen. 12/05/2016 App[facility]ment: [phone] [place] New Patient 12/05/2016 Patient Education: Patient Medication Summary Completed 12/05/2016 Instructions Comment . CLL - continue with chemotherapy. Umbilical [...] - keep appt for colonoscopy and EGD. please have the roller maker look at the rough area below your [...] has been appropriately prescribed for this patient. tonic water 4 ounces at bedtime - [...] not interested in surgery at this time. . Pain in left foot - Rx for xray given to patient today. Anxiety - and Insomnia - continue with temazepam. Hx of Concussion and Attack by individual at work - he is feeling better, but still has some intermittent dizziness and still has some mood swings that he did not have prior to the attack. START LEXAPRO 1/2 PILL DAILY TO SEE [...] 5pm. Daytime napping worsens night time insomnia. aleve twice daily - 220mg each can also take up to 6 500mg tylenol in one day. CLL - pt has finished chemotherapy - continue with follow up with Dr. Austin. Umbilical hernia -pt cannot get his surgery until another month from this date as he has to wait for the chemotherapy to be out of his system prior to surgery. . Decreased Libido - check testosterone level. CLL - chronic on chemotherapy - continue with course through March. Umbilical Hernia - recommend for patient to call if his symptoms are acutely worsening. I have recommended patient to plan for surgery in March after his chemotherapy is completed. start on the carafate and restart pepcid [...]
--- OUTSIDE RECORDS SUMMARY | 2018-05-10 18:37 | XMS REPORT | CCD ---
Author Author [facility] Organization [facility] Address [address] [place] [address] Phone Care Team Providers Care Advertising Account Manager Name Role Phone PP Unavailable CCM Unavailable Summary Purpose Interface Exchange Insurance Providers Payer name Policy type / Coverage type Covered green party ID Effective Begin Date Effective End Date WPS Medicare Part B Medicare Part B [id number] 2017 Unknown AARP Medicare Part B [id number] Unknown Family history Father Diagnosis Age At Onset brain cancer Unknown Skin cancer Unknown Mother Diagnosis Age At Onset Cancer Unknown Daughter Diagnosis Age At Onset Celiac disease Unknown Social History Social History Element Codes Description Effective Dates Marital status Unknown Single 12/05/2016 Number of children Unknown 2 12/05/2016 Employment Unknown 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[employer] 12/05/[address]: 227172508 Never smoker 12/05/[address]: 656118 Currently drinks alcohol 12/05/2016 Frequency of drinks SNOMED CT: 811717221 1-4 drinks per week 12/05/2016 Has the [...] Fill Instructions temazepam 7.5 mg capsule RxNorm: 889364 1 Capsule(s) PO QHS 02/15/2018 Inactive temazepam 7.5 mg capsule RxNorm: 044344 1 Capsule(s) PO QHS 01/16/2018 Inactive Restoril 15 mg capsule RxNorm: 006303 1 Capsule(s) PO daily 01/31/2018 Inactive Restoril 7.5 mg capsule RxNorm: 988444 1 Capsule(s) PO daily 01/07/2018 Inactive Restoril 7.5 mg capsule RxNorm: 417138 1 Capsule(s) PO daily 01/09/2018 Inactive Lexapro 10 mg tablet RxNorm: 275284 1 Tablet(s) PO QHS 201701/31/2018 Inactive Voltaren 1 % topical gel RxNorm: 864662 4 Gram(s) TOP QID as needed 11/22/2017 No Stop Date Active Viagra 100 mg tablet RxNorm: 081905 1 Tablet(s) PO PRN sexual encounter 10/02/2017 No Stop Date Active promethazine 6.25 mg-codeine 10 mg/5 mL syrup RxNorm: 139470 5-10 Milliliter(s) PO Q6 as needed 10/02/2017 12/20/2017 Inactive Keflex 500 mg capsule RxNorm: 588832 1 Capsule(s) PO TID 201707/25/2017 Inactive Pepcid 20 mg tablet RxNorm: 566058 1 Tablet(s) PO BID 201707/18/2017 Inactive Carafate 1 gram tablet RxNorm: 997856 1 Tablet(s) PO QID 201707/04/2017 Inactive Pepcid 20 mg tablet RxNorm: 956967 1 Tablet(s) PO BID 201706/04/2017 Inactive mupirocin 2 % topical cream RxNorm: 408949 1 Application TOP BID 02/27/2017 03/08/2017 Inactive meclizine 25 mg tablet RxNorm: 833695 1 Tablet(s) PO TID as needed nausea 01/27/2017 03/27/2017 Inactive meclizine 25 mg tablet RxNorm: 476530 1 Tablet(s) PO TID as needed nausea 01/27/2017 01/26/2017 Inactive scopolamine 1 mg over 3 days transdermal patch RxNorm: 244494 1 TD Q72H 01/10/2017 02/26/2017 Inactive ibuprofen 200 mg tablet RxNorm: 395149 1 Tablet(s) PO No Start Date Active vitamin E (dl, acetate) oral RxNorm: oral No Start Date Active Viagra 100 mg tablet RxNorm: 331107 1 Tablet(s) PO PRN sexual encounter No Start Date 10/01/2017 Inactive promethazine 6.25 mg-codeine 10 mg/5 mL syrup RxNorm: 077240 5-10 Milliliter(s) PO Q6 as needed No [...] Observation Code Item Item Code Result Date Ldh Ord92 LDH 163 U/L 12/18/2017 Cbc [...] 32.3 pg 12/18/2017 Cbc With Differential Ord2 Hart% 6.8 % 12/18/2017 Cbc With Differential Ord2 [...] 0.53 K/ul 12/18/2017 Cbc With Differential Ord2 Hart ABS# 0.3 K/ul 12/18/2017 Cbc With Differential Ord2 Eos ABS# 0.1 K/ul 12/18/2017 Cbc With Differential Ord2 Baso ABS# 0.0 K/ul 12/18/2017 Comp Metabolic Tuq671 NA 139 mEq/L 12/18/2017 Comp Metabolic Ohm412 K 4.6 mEq/L 12/18/2017 Comp Metabolic Pjp724 CL 105 mEq/L 12/18/2017 Comp Metabolic Rrj237 CO2 27.0 mEq/L 12/18/2017 Comp Metabolic Ypr865 ANION GAP 12 12/18/2017 Comp Metabolic Wuq885 GLUCOSE 126 mg/dL 12/18/2017 Comp Metabolic Msq103 Creat 0.9 mg/dL 12/18/2017 Comp Metabolic Nbd488 eGFR 89 ml/min/1.73m2 12/18/2017 Comp Metabolic Fhm935 BUN 19 mg/dL 12/18/2017 Comp Metabolic Cce108 B/C Ratio 21.3 Ratio 12/18/2017 Comp Metabolic Whm086 CALCIUM 8.8 mg/dL 12/18/2017 Comp Metabolic Emu275 ALK PHOS 99 U/L 12/18/2017 Comp Metabolic Sac658 AST(SGOT) 31 U/L 12/18/2017 Comp Metabolic Ykn230 ALT(SGPT) 46 U/L 12/18/2017 Comp Metabolic Wor628 BILI T 0.5 mg/dL 12/18/2017 Comp Metabolic Slu874 ALBUMIN 3.9 g/dL 12/18/2017 Comp Metabolic Ugh578 TPRO 5.8 g/dL 12/18/2017 Comp Metabolic Yug175 GLOB 2.0 g/dL 12/18/2017 Comp Metabolic Wsk243 A/G Ratio 2.0 Ratio 12/18/2017 Comp Metabolic Mxt096 Osmo 281 mOsmo 12/18/2017 Magnesium Ord90 Mag 2.1 mg/dL 12/18/2017 Cbc With Differential Ord2 WBC 3.58 [...] 32.1 pg 09/22/2017 Cbc With Differential Ord2 Hart% 11.2 % 09/22/2017 Cbc With Differential Ord2 [...] 0.46 K/ul 09/22/2017 Cbc With Differential Ord2 Hart ABS# 0.4 K/ul 09/22/2017 Cbc With Differential Ord2 Eos ABS# 0.1 K/ul 09/22/2017 Cbc With Differential Ord2 Baso ABS# 0.0 K/ul 09/22/2017 Ldh Ord92 LDH 130 U/L 09/22/2017 Uric Acid Ord77 Uric A 5.5 mg/dL 09/22/2017 Comp Metabolic Dge783 NA 141 mEq/L 09/22/2017 Comp Metabolic Irl128 K 5.2 mEq/L 09/22/2017 Comp Metabolic Imn367 CL 106 mEq/L 09/22/2017 Comp Metabolic Dxr305 CO2 29.0 mEq/L 09/22/2017 Comp Metabolic Rbu398 ANION GAP 11 09/22/2017 Comp Metabolic Baq970 GLUCOSE 115 mg/dL 09/22/2017 Comp Metabolic Wch463 Creat 0.9 mg/dL 09/22/2017 Comp Metabolic Zcz885 eGFR 88 ml/min/1.73m2 09/22/2017 Comp Metabolic Sqf427 BUN 18 mg/dL 09/22/2017 Comp Metabolic Dsy957 B/C Ratio 20.0 Ratio 09/22/2017 Comp Metabolic Sni771 CALCIUM 8.7 mg/dL 09/22/2017 Comp Metabolic Rbu750 ALK PHOS 103 U/L 09/22/2017 Comp Metabolic Gzd001 AST(SGOT) 32 U/L 09/22/2017 Comp Metabolic Evv707 ALT(SGPT) 51 U/L 09/22/2017 Comp Metabolic Awk396 BILI T 0.4 mg/dL 09/22/2017 Comp Metabolic Sxs380 ALBUMIN 3.8 g/dL 09/22/2017 Comp Metabolic Cbm826 TPRO 5.8 g/dL 09/22/2017 Comp Metabolic Ijf107 GLOB 2.0 g/dL 09/22/2017 Comp Metabolic Tsi879 A/G Ratio 1.8 Ratio 09/22/2017 Comp Metabolic Hfs840 Osmo 284 mOsmo 09/22/2017 Comp Metabolic Vat438 NA 140 mEq/L 06/27/2017 Comp Metabolic Jli308 K 4.6 mEq/L 06/27/2017 Comp Metabolic Zxd346 CL 105 mEq/L 06/27/2017 Comp Metabolic Ama246 CO2 30.0 mEq/L 06/27/2017 Comp Metabolic Xgh269 ANION GAP 10 06/27/2017 Comp Metabolic Afp343 GLUCOSE 95 mg/dL 06/27/2017 Comp Metabolic Dwn069 Creat 0.8 mg/dL 06/27/2017 Comp Metabolic Qiv796 eGFR 95 ml/min/1.73m2 06/27/2017 Comp Metabolic Hcx921 BUN 14 mg/dL 06/27/2017 Comp Metabolic Yxc935 B/C Ratio 16.7 Ratio 06/27/2017 Comp Metabolic Xno297 CALCIUM 9.1 mg/dL 06/27/2017 Comp Metabolic Oua790 ALK PHOS 129 U/L 06/27/2017 Comp Metabolic Pia103 AST(SGOT) 29 U/L 06/27/2017 Comp Metabolic Bsb546 ALT(SGPT) 33 U/L 06/27/2017 Comp Metabolic Zuy292 BILI T 0.5 mg/dL 06/27/2017 Comp Metabolic Yqy171 ALBUMIN 3.9 g/dL 06/27/2017 Comp Metabolic Eky392 TPRO 6.0 g/dL 06/27/2017 Comp Metabolic Qjv688 GLOB 2.1 g/dL 06/27/2017 Comp Metabolic Zuf197 A/G Ratio 1.9 Ratio 06/27/2017 Comp Metabolic Mmy269 Osmo 280 mOsmo 06/27/2017 Cbc With Differential [...] 13.7 % 06/27/2017 Cbc With Differential Ord2 Hart% 9.8 % 06/27/2017 Cbc With Differential Ord2 [...] 0.50 K/ul 06/27/2017 Cbc With Differential Ord2 Hart ABS# 0.4 K/ul 06/27/2017 Cbc With Differential Ord2 Eos ABS# 0.1 K/ul 06/27/2017 Cbc With Differential Ord2 Baso ABS# 0.0 K/ul 06/27/2017 Ldh Ord92 LDH 173 U/L 06/27/2017 Uric Acid Ord77 Uric A 5.1 mg/dL 06/27/2017 Celiac Disease Comprehensive 72034 IMMUNOGLOBULIN A-SERUM . 06/20/2017 Celiac Disease Comprehensive 97521 IMMUNOGLOBULIN A-SERUM 89 mg/dL 06/20/2017 Celi[facility] Disease [facility] 45882 GLIADIN ANTIBODY, IGG . 06/20/2017 Celiac Disease Comprehensive 36333 GLIADIN ANTIBODY, IGG 3 EU/mL 06/20/2017 Celiac Disease Comprehensive 07645 GLIADIN ANTIBODY, IGA . 06/20/2017 Celiac Disease Comprehensive 56675 GLIADIN ANTIBODY, IGA <9 EU/mL 06/20/2017 Celiac Disease Comprehensive 69818 TISSUE TRANSGLUTAMINASE AB, IGG . 06/20/2017 Celiac Disease Comprehensive 00259 TISSUE TRANSGLUTAMINASE-G 5 EU/mL 06/20/2017 Celiac Disease Comprehensive 38792 TISSUE TRANS. AB IGA W/REFLEX . 06/20/2017 Celiac Disease Comprehensive 15655 TISSUE TRANSGLUTAMINASE-A 6 EU/mL 06/20/2017 Allergen Profile, Comprehensive Food 20469 IMMUNOGLOBULIN E 3 IU/mL 06/19/2017 Allergen Profile, Comprehensive Food 28738 BACON'S YEAST <0.10 kU/L 06/19/2017 Allergen Profile, Comprehensive Food 07503 BARLEY <0.10 kU/L 06/19/2017 Allergen Profile, Comprehensive Food 17626 BEEF <0.10 kU/L 04/2017 Allergen Profile, Comprehensive Food 30251 CHICKEN MEAT <0.10 kU/L 06/19/2017 Allergen Profile, Comprehensive Food 84422 CHOCOLATE <0.10 kU/L 06/19/2017 Allergen Profile, Comprehensive Food 47338 COD <0.10 kU/L 04/2017 Allergen Profile, Comprehensive Food 53312 CORN <0.10 kU/L 04/2017 Allergen Profile, Comprehensive Food 90357 EGG WHITE <0.10 kU/L 06/19/2017 Allergen Profile, Comprehensive Food 99702 LETTUCE <0.10 kU/L 06/19/2017 Allergen Profile, Comprehensive Food 66635 MALT <0.10 kU/L 04/2017 Allergen Profile, Comprehensive Food 37420 MILK <0.10 kU/L 04/2017 Allergen Profile, Comprehensive Food 63934 OAT <0.10 kU/L 04/2017 Allergen Profile, Comprehensive Food 11527 ORANGE <0.10 kU/L 06/19/2017 Allergen Profile, Comprehensive Food 16084 PEANUT <0.10 kU/L 06/19/2017 Allergen Profile, Comprehensive Food 76745 PORK <0.10 kU/L 04/2017 Allergen Profile, Comprehensive Food 33424 POTATO <0.10 kU/L 06/19/2017 Allergen Profile, Comprehensive Food 98187 RYE <0.10 kU/L 04/2017 Allergen Profile, Comprehensive Food 01981 SHRIMP <0.10 kU/L 06/19/2017 Allergen Profile, Comprehensive Food 02890 SOYBEAN <0.10 kU/L 06/19/2017 Allergen Profile, Comprehensive Food 73744 TOMATO <0.10 kU/L 06/19/2017 Allergen Profile, Comprehensive Food 79219 WALNUT <0.10 kU/L 06/19/2017 Allergen Profile, Comprehensive Food 08723 WHEAT <0.10 kU/L Allergen Profile, Comprehensive Food 35390 STRAWBERRY <0.10 kU/L 06/19/2017 Allergen Profile, Comprehensive Food 35811 ALLERGEN INTERPRETATION 06/19/2017 Testosterone Krw192 Testo 288.8 ng/dL 05/11/2017 Uric Acid Ord77 Uric A 6.0 mg/dL 05/05/2017 Cbc With Differential Ord2 WBC [...] 31.5 pg 05/05/2017 Cbc With Differential Ord2 Hart% 20.6 % 05/05/2017 Cbc With Differential Ord2 [...] 0.27 K/ul 05/05/2017 Cbc With Differential Ord2 Hart ABS# 0.5 K/ul 05/05/2017 Cbc With Differential Ord2 Eos ABS# 0.1 K/ul 05/05/2017 Cbc With Differential Ord2 Baso ABS# 0.0 K/ul 05/05/2017 Sed Rate Ord21 ESR 22 mm/hr 05/05/2017 Magnesium Ord90 Mag 1.9 mg/dL 05/05/2017 C-Reactive Protein Qnt Crqnt CRP 0.3 mg/dl 05/05/2017 Comp Metabolic Siw459 NA 140 mEq/L 05/05/2017 Comp Metabolic Not331 K 4.1 mEq/L 05/05/2017 Comp Metabolic Lrm304 CL 106 mEq/L 05/05/2017 Comp Metabolic Qvi360 CO2 27.0 mEq/L 05/05/2017 Comp Metabolic Iiq419 ANION GAP 11 05/05/2017 Comp Metabolic Bjb291 GLUCOSE 107 mg/dL 05/05/2017 Comp Metabolic Mrb214 Creat 0.9 mg/dL 05/05/2017 Comp Metabolic Qsb451 eGFR 89 ml/min/1.73m2 05/05/2017 Comp Metabolic Dgd935 BUN 10 mg/dL 05/05/2017 Comp Metabolic Vxu608 B/C Ratio 11.2 Ratio 05/05/2017 Comp Metabolic Gpl230 CALCIUM 8.6 mg/dL 05/05/2017 Comp Metabolic Jni261 ALK PHOS 96 U/L 05/05/2017 Comp Metabolic Sjk270 AST(SGOT) 36 U/L 05/05/2017 Comp Metabolic Zlc110 ALT(SGPT) 40 U/L 05/05/2017 Comp Metabolic Qfz062 BILI T 0.3 mg/dL 05/05/2017 Comp Metabolic Vel537 ALBUMIN 3.8 g/dL 05/05/2017 Comp Metabolic Toj767 TPRO 5.8 g/dL 05/05/2017 Comp Metabolic Elv469 GLOB 2.0 g/dL 05/05/2017 Comp Metabolic Tkk322 A/G Ratio 1.9 Ratio 05/05/2017 Comp Metabolic Wyz211 Osmo 279 mOsmo 05/05/2017 Magnesium Ord90 Mag 2.2 mg/dL 04/25/2017 Comp Metabolic Jcs166 NA 143 mEq/L 04/25/2017 Comp Metabolic Kmd311 K 4.2 mEq/L 04/25/2017 Comp Metabolic Dgb185 CL 108 mEq/L 04/25/2017 Comp Metabolic Ltn587 CO2 30.0 mEq/L 04/25/2017 Comp Metabolic Sjf450 ANION GAP 9 04/25/2017 Comp Metabolic Uvb118 GLUCOSE 80 mg/dL 04/25/2017 Comp Metabolic Auo764 Creat 0.9 mg/dL 04/25/2017 Comp Metabolic Rxr422 eGFR 84 ml/min/1.73m2 04/25/2017 Comp Metabolic Lje577 BUN 16 mg/dL 04/25/2017 Comp Metabolic Fct050 B/C Ratio 17.0 Ratio 04/25/2017 Comp Metabolic Nib848 CALCIUM 9.0 mg/dL 04/25/2017 Comp Metabolic Zky997 ALK PHOS 93 U/L 04/25/2017 Comp Metabolic Qwv267 AST(SGOT) 32 U/L 04/25/2017 Comp Metabolic Msg537 ALT(SGPT) 36 U/L 04/25/2017 Comp Metabolic Vwu501 BILI T 0.5 mg/dL 04/25/2017 Comp Metabolic Czh665 ALBUMIN 3.9 g/dL 04/25/2017 Comp Metabolic Lij219 TPRO 6.0 g/dL 04/25/2017 Comp Metabolic Bwu745 GLOB 2.1 g/dL 04/25/2017 Comp Metabolic Ate844 A/G Ratio 1.8 Ratio 04/25/2017 Comp Metabolic Mbf713 Osmo 285 mOsmo 04/25/2017 Cbc With Differential Ord2 WBC 4.98 K/ul 04/25/2017 Cbc With Differential Ord2 RBC 4.62 M/ul 04/25/2017 Cbc With Differential Ord2 HGB 14.7 g/dl 04/25/2017 Cbc With Differential Ord2 HCT 43.2 % 04/25/2017 Cbc With Differential Ord2 Neut% 80.8 % 04/25/2017 Cbc With Differential Ord2 MCV 93.5 fl 04/25/2017 Cbc With Differential Ord2 Lymph% 6.4 % 04/25/2017 Cbc With Differential Ord2 MCH 31.8 pg 04/25/2017 Cbc With Differential Ord2 Hart% 10.2 % 04/25/2017 Cbc With Differential Ord2 MCHC 34.0 pg 04/25/2017 Cbc With Differential Ord2 Eos% 2.0 % 04/25/2017 Cbc With Differential Ord2 PLT 156 K/ul 04/25/2017 Cbc With Differential Ord2 Baso% 0.6 % 04/25/2017 Cbc With Differential Ord2 RDW 13.6 % 04/25/2017 Cbc With Differential Ord2 Neut ABS# 4.02 K/ul 04/25/2017 Cbc With Differential Ord2 Lymph ABS# 0.32 K/ul 04/25/2017 Cbc With Differential Ord2 Hart ABS# 0.5 K/ul 04/25/2017 Cbc With Differential Ord2 Eos ABS# 0.1 K/ul 04/25/2017 Cbc With Differential Ord2 Baso ABS# 0.0 K/ul 04/25/2017 Uric Acid Ord77 Uric A 6.0 mg/dL 04/25/2017 Uric Acid Ord77 Uric A 5.9 mg/dL 04/18/2017 Comp Metabolic Wpa647 NA 142 mEq/L 04/18/2017 Comp Metabolic Sey057 K 4.3 mEq/L 04/18/2017 Comp Metabolic Wey664 CL 105 mEq/L 04/18/2017 Comp Metabolic Yzp404 CO2 30.0 mEq/L 04/18/2017 Comp Metabolic Ted996 ANION GAP 11 04/18/2017 Comp Metabolic Ktj254 GLUCOSE 126 mg/dL 04/18/2017 Comp Metabolic Ain126 Creat 1.0 mg/dL 04/18/2017 Comp Metabolic Qkh540 eGFR 83 ml/min/1.73m2 04/18/2017 Comp Metabolic Uyh978 BUN 17 mg/dL 04/18/2017 Comp Metabolic Zhd033 B/C Ratio 17.9 Ratio 04/18/2017 Comp Metabolic Cyw642 CALCIUM 9.0 mg/dL 04/18/2017 Comp Metabolic Lhs120 ALK PHOS 100 U/L 04/18/2017 Comp Metabolic Xfw032 AST(SGOT) 27 U/L 04/18/2017 Comp Metabolic Lit225 ALT(SGPT) 36 U/L 04/18/2017 Comp Metabolic Orv470 BILI T 0.5 mg/dL 04/18/2017 Comp Metabolic Zop287 ALBUMIN 3.8 g/dL 04/18/2017 Comp Metabolic Och111 TPRO 6.0 g/dL 04/18/2017 Comp Metabolic Wxl529 GLOB 2.2 g/dL 04/18/2017 Comp Metabolic Rha830 A/G Ratio 1.8 Ratio 04/18/2017 Comp Metabolic Iyu700 Osmo 286 mOsmo 04/18/2017 Cbc With Differential Ord2 WBC 3.86 K/ul 04/18/2017 Cbc With Differential Ord2 RBC 4.86 M/ul 04/18/2017 Cbc With Differential Ord2 HGB 15.7 g/dl 04/18/2017 Cbc With Differential Ord2 Neut% 81.3 % 04/18/2017 Cbc With Differential Ord2 HCT 45.7 % 04/18/2017 Cbc With Differential Ord2 MCV 94.0 fl 04/18/2017 Cbc With Differential Ord2 Lymph% 6.0 % 04/18/2017 Cbc With Differential Ord2 Hart% 9.6 % 04/18/2017 Cbc With Differential Ord2 [...] 0.23 K/ul 04/18/2017 Cbc With Differential Ord2 Hart ABS# 0.4 K/ul 04/18/2017 Cbc With Differential Ord2 Eos ABS# 0.1 K/ul 04/18/2017 Cbc With Differential Ord2 Baso ABS# 0.0 K/ul 04/18/2017 Magnesium Ord90 Mag 2.1 mg/dL 04/18/2017 Cbc With Differential Ord2 WBC 6.69 K/ul [...] 32.0 pg 03/30/2017 Cbc With Differential Ord2 Hart% 12.1 % 03/30/2017 Cbc With Differential Ord2 [...] 0.42 K/ul 03/30/2017 Cbc With Differential Ord2 Hart ABS# 0.8 K/ul 03/30/2017 Cbc With Differential Ord2 Eos ABS# 0.1 K/ul 03/30/2017 Cbc With Differential Ord2 Baso ABS# 0.0 K/ul 03/30/2017 Comp Metabolic Tgq274 NA 141 mEq/L 03/30/2017 Comp Metabolic Kll232 K 4.7 mEq/L 03/30/2017 Comp Metabolic Smn890 CL 106 mEq/L 03/30/2017 Comp Metabolic Uqv983 CO2 28.0 mEq/L 03/30/2017 Comp Metabolic Jqu227 ANION GAP 12 03/30/2017 Comp Metabolic Vfi605 GLUCOSE 81 mg/dL 03/30/2017 Comp Metabolic Xfj841 Creat 1.0 mg/dL 03/30/2017 Comp Metabolic Zdm374 eGFR 80 ml/min/1.73m2 03/30/2017 Comp Metabolic Yxp281 BUN 17 mg/dL 03/30/2017 Comp Metabolic Ghk847 B/C Ratio 17.3 Ratio 03/30/2017 Comp Metabolic Fmm206 CALCIUM 8.9 mg/dL 03/30/2017 Comp Metabolic Rdn418 ALK PHOS 106 U/L 03/30/2017 Comp Metabolic Fua871 AST(SGOT) 52 U/L 03/30/2017 Comp Metabolic Qku071 ALT(SGPT) 54 U/L 03/30/2017 Comp Metabolic Med223 BILI T 0.4 mg/dL 03/30/2017 Comp Metabolic Yif225 ALBUMIN 3.8 g/dL 03/30/2017 Comp Metabolic Pov837 TPRO 6.2 g/dL 03/30/2017 Comp Metabolic Xtp911 GLOB 2.4 g/dL 03/30/2017 Comp Metabolic Ssp627 A/G Ratio 1.6 Ratio 03/30/2017 Comp Metabolic Rwb171 Osmo 282 mOsmo 03/30/2017 Magnesium Ord90 Mag 2.2 mg/dL 03/30/2017 Uric Acid Ord77 Uric A 5.0 [...] 32.0 pg 03/23/2017 Cbc With Differential Ord2 Hart% 10.7 % 03/23/2017 Cbc With Differential Ord2 MCHC 34.0 pg 03/23/2017 Cbc With Differential Ord2 Eos% 2.0 % 03/23/2017 Cbc With Differential Ord2 PLT 177 K/ul 03/23/2017 Cbc With Differential Ord2 Baso% 0.2 % 03/23/2017 Cbc With Differential Ord2 RDW 13.8 % 03/23/2017 Cbc With Differential Ord2 Neut ABS# 4.15 K/ul 03/23/2017 Cbc With Differential Ord2 Lymph ABS# 0.31 K/ul 03/23/2017 Cbc With Differential Ord2 Hart ABS# 0.6 K/ul 03/23/2017 Cbc With Differential Ord2 Eos ABS# 0.1 K/ul 03/23/2017 Cbc With Differential Ord2 Baso ABS# 0.0 K/ul 03/23/2017 Magnesium Ord90 Mag 2.0 mg/dL 03/23/2017 Uric Acid Ord77 Uric A 5.0 mg/dL 03/23/2017 Comp Metabolic Kbz749 NA 140 mEq/L 03/23/2017 Comp Metabolic Pkj139 K 4.4 mEq/L 03/23/2017 Comp Metabolic Hub475 CL 105 mEq/L 03/23/2017 Comp Metabolic Ihf690 CO2 30.0 mEq/L 03/23/2017 Comp Metabolic Nxj910 ANION GAP 9 03/23/2017 Comp Metabolic Iln078 GLUCOSE 75 mg/dL 03/23/2017 Comp Metabolic Ygv528 Creat 0.9 mg/dL 03/23/2017 Comp Metabolic Knm402 eGFR 87 ml/min/1.73m2 03/23/2017 Comp Metabolic Ihu489 BUN 17 mg/dL 03/23/2017 Comp Metabolic Fbq094 B/C Ratio 18.7 Ratio 03/23/2017 Comp Metabolic Uyg147 CALCIUM 9.0 mg/dL 03/23/2017 Comp Metabolic Okx068 ALK PHOS 91 U/L 03/23/2017 Comp Metabolic Wts389 AST(SGOT) 27 U/L 03/23/2017 Comp Metabolic Blp187 ALT(SGPT) 30 U/L 03/23/2017 Comp Metabolic Ycv509 BILI T 0.4 mg/dL 03/23/2017 Comp Metabolic Uaq375 ALBUMIN 3.8 g/dL 03/23/2017 Comp Metabolic Vmb455 TPRO 6.1 g/dL 03/23/2017 Comp Metabolic Jjk485 GLOB 2.3 g/dL 03/23/2017 Comp Metabolic Eke949 A/G Ratio 1.7 Ratio 03/23/2017 Comp Metabolic Uzo111 Osmo 280 mOsmo 03/23/2017 Cbc With Differential Ord2 WBC 4.28 K/ul 03/06/2017 Cbc With Differential Ord2 RBC 4.63 M/ul 03/06/2017 Cbc With Differential Ord2 HGB 14.7 g/dl 03/06/2017 Cbc With Differential Ord2 HCT 43.5 % 03/06/2017 Cbc With Differential Ord2 Neut% 77.7 % 03/06/2017 Cbc With Differential Ord2 Lymph% 7.7 % 03/06/2017 Cbc With Differential Ord2 MCV 94.0 fl 03/06/2017 Cbc With Differential Ord2 Hart% 11.4 % 03/06/2017 Cbc With Differential Ord2 [...] 0.33 K/ul 03/06/2017 Cbc With Differential Ord2 Hart ABS# 0.5 K/ul 03/06/2017 Cbc With Differential Ord2 Eos ABS# 0.1 K/ul 03/06/2017 Cbc With Differential Ord2 Baso ABS# 0.0 K/ul 03/06/2017 Comp Metabolic Xyz941 NA 143 mEq/L 03/06/2017 Comp Metabolic Anm084 K 4.1 mEq/L 03/06/2017 Comp Metabolic Prp828 CL 107 mEq/L 03/06/2017 Comp Metabolic Ohz324 CO2 29.0 mEq/L 03/06/2017 Comp Metabolic Tnx136 ANION GAP 11 03/06/2017 Comp Metabolic Odf763 GLUCOSE 129 mg/dL 03/06/2017 Comp Metabolic Ouh466 Creat 0.9 mg/dL 03/06/2017 Comp Metabolic Ntm054 eGFR 88 ml/min/1.73m2 03/06/2017 Comp Metabolic Qms905 BUN 15 mg/dL 03/06/2017 Comp Metabolic Ydl103 B/C Ratio 16.7 Ratio 03/06/2017 Comp Metabolic Uiv384 CALCIUM 8.7 mg/dL 03/06/2017 Comp Metabolic Udt926 ALK PHOS 99 U/L 03/06/2017 Comp Metabolic Lmo623 AST(SGOT) 29 U/L 03/06/2017 Comp Metabolic Cjt033 ALT(SGPT) 30 U/L 03/06/2017 Comp Metabolic Giz623 BILI T 0.4 mg/dL 03/06/2017 Comp Metabolic Rxl632 ALBUMIN 3.8 g/dL 03/06/2017 Comp Metabolic Oph119 TPRO 5.9 g/dL 03/06/2017 Comp Metabolic Zss462 GLOB 2.1 g/dL 03/06/2017 Comp Metabolic Ddz827 A/G Ratio 1.9 Ratio 03/06/2017 Comp Metabolic Iel904 Osmo 288 mOsmo 03/06/2017 Uric Acid Ord77 Uric A 4.4 mg/dL 03/06/2017 Magnesium Ord90 Mag 2.1 mg/dL 03/06/2017 Cbc With Differential Ord2 WBC 6.05 K/ul 02/27/2017 Cbc With Differential Ord2 RBC 4.58 M/ul 02/27/2017 Cbc With Differential Ord2 HGB 14.7 g/dl 02/27/2017 Cbc With Differential Ord2 Neut% 81.9 % 02/27/2017 Cbc With Differential Ord2 HCT 43.1 % 02/27/2017 Cbc With Differential Ord2 Lymph% 5.3 % 02/27/2017 Cbc With Differential Ord2 MCV 94.1 fl 02/27/2017 Cbc With Differential Ord2 Hart% 10.1 % 02/27/2017 Cbc With Differential Ord2 [...] 0.32 K/ul 02/27/2017 Cbc With Differential Ord2 Hart ABS# 0.6 K/ul 02/27/2017 Cbc With Differential Ord2 Eos ABS# 0.1 K/ul 02/27/2017 Cbc With Differential Ord2 Baso ABS# 0.0 K/ul 02/27/2017 Uric Acid Ord77 Uric A 5.5 mg/dL 02/27/2017 Magnesium Ord90 Mag 2.2 mg/dL 02/27/2017 Comp Metabolic Upb192 NA 141 mEq/L 02/27/2017 Comp Metabolic Sdv090 K 4.5 mEq/L 02/27/2017 Comp Metabolic Wcr164 CL 105 mEq/L 02/27/2017 Comp Metabolic Tdt478 CO2 30.0 mEq/L 02/27/2017 Comp Metabolic Stp650 ANION GAP 11 02/27/2017 Comp Metabolic Xyq454 GLUCOSE 73 mg/dL 02/27/2017 Comp Metabolic Ypx359 Creat 0.9 mg/dL 02/27/2017 Comp Metabolic Zct100 eGFR 87 ml/min/1.73m2 02/27/2017 Comp Metabolic Jjd838 BUN 17 mg/dL 02/27/2017 Comp Metabolic Pcx094 B/C Ratio 18.7 Ratio 02/27/2017 Comp Metabolic Hgf827 CALCIUM 8.8 mg/dL 02/27/2017 Comp Metabolic Oxg896 ALK PHOS 93 U/L 02/27/2017 Comp Metabolic Mvi591 AST(SGOT) 31 U/L 02/27/2017 Comp Metabolic Jad772 ALT(SGPT) 35 U/L 02/27/2017 Comp Metabolic Axv714 BILI T 0.4 mg/dL 02/27/2017 Comp Metabolic Caw501 ALBUMIN 3.9 g/dL 02/27/2017 Comp Metabolic Cum331 TPRO 5.9 g/dL 02/27/2017 Comp Metabolic Mdf453 GLOB 2.0 g/dL 02/27/2017 Comp Metabolic Xfl804 A/G Ratio 2.0 Ratio 02/27/2017 Comp Metabolic Cyo043 Osmo 281 mOsmo 02/27/2017 Comp Metabolic Vir212 NA 134 mEq/L 02/21/2017 Comp Metabolic Rcw985 K 4.3 mEq/L 02/21/2017 Comp Metabolic Scz074 CL 100 mEq/L 02/21/2017 Comp Metabolic Ard412 CO2 28.0 mEq/L 02/21/2017 Comp Metabolic Mbr858 ANION GAP 10 02/21/2017 Comp Metabolic Qex590 GLUCOSE 130 mg/dL 02/21/2017 Comp Metabolic Qej781 Creat 1.0 mg/dL 02/21/2017 Comp Metabolic Vyv083 eGFR 77 ml/min/1.73m2 02/21/2017 Comp Metabolic Csm241 BUN 17 mg/dL 02/21/2017 Comp Metabolic Gmy574 B/C Ratio 16.8 Ratio 02/21/2017 Comp Metabolic Gma899 CALCIUM 9.1 mg/dL 02/21/2017 Comp Metabolic Ono907 ALK PHOS 92 U/L 02/21/2017 Comp Metabolic Pac415 AST(SGOT) 23 U/L 02/21/2017 Comp Metabolic Jmg548 ALT(SGPT) 29 U/L 02/21/2017 Comp Metabolic Jfn359 BILI T 0.3 mg/dL 02/21/2017 Comp Metabolic Ptn494 ALBUMIN 3.9 g/dL 02/21/2017 Comp Metabolic Bxm545 TPRO 6.1 g/dL 02/21/2017 Comp Metabolic Hkl360 GLOB 2.2 g/dL 02/21/2017 Comp Metabolic Jgz339 A/G Ratio 1.8 Ratio 02/21/2017 Comp Metabolic Gkn026 Osmo 272 mOsmo 02/21/2017 Magnesium Ord90 Mag 2.2 mg/dL 02/21/2017 Cbc [...] 32.0 pg 02/21/2017 Cbc With Differential Ord2 Hart% 9.0 % 02/21/2017 Cbc With Differential Ord2 [...] 0.31 K/ul 02/21/2017 Cbc With Differential Ord2 Hart ABS# 0.5 K/ul 02/21/2017 Cbc With Differential Ord2 Eos ABS# 0.1 K/ul 02/21/2017 Cbc With Differential Ord2 Baso ABS# 0.0 K/ul 02/21/2017 Uric Acid Ord77 Uric A 5.0 mg/dL 02/21/2017 Magnesium Ord90 Mag 2.1 mg/dL 02/07/2017 Cbc With Differential Ord2 WBC 4.24 [...] 31.9 pg 02/07/2017 Cbc With Differential Ord2 Hart% 12.0 % 02/07/2017 Cbc With Differential Ord2 MCHC 34.2 pg 02/07/2017 Cbc With Differential Ord2 Eos% 3.1 % 02/07/2017 Cbc With Differential Ord2 PLT 184 K/ul 02/07/2017 Cbc With Differential Ord2 Baso% 0.7 % 02/07/2017 Cbc With Differential Ord2 RDW 14.2 % 02/07/2017 Cbc With Differential Ord2 Neut ABS# 3.13 K/ul 02/07/2017 Cbc With Differential Ord2 Lymph ABS# 0.44 K/ul 02/07/2017 Cbc With Differential Ord2 Hart ABS# 0.5 K/ul 02/07/2017 Cbc With Differential Ord2 Eos ABS# 0.1 K/ul 02/07/2017 Cbc With Differential Ord2 Baso ABS# 0.0 K/ul 02/07/2017 Comp Metabolic Xyq482 NA 139 mEq/L 02/07/2017 Comp Metabolic Mgl263 K 4.6 mEq/L 02/07/2017 Comp Metabolic Xka451 CL 106 mEq/L 02/07/2017 Comp Metabolic Azm906 CO2 29.0 mEq/L 02/07/2017 Comp Metabolic Trs033 ANION GAP 9 02/07/2017 Comp Metabolic Gzo891 GLUCOSE 99 mg/dL 02/07/2017 Comp Metabolic Rfx194 Creat 0.9 mg/dL 02/07/2017 Comp Metabolic Mzj115 eGFR 92 ml/min/1.73m2 02/07/2017 Comp Metabolic Hsl805 BUN 19 mg/dL 02/07/2017 Comp Metabolic Kny587 B/C Ratio 21.8 Ratio 02/07/2017 Comp Metabolic Mhc372 CALCIUM 8.8 mg/dL 02/07/2017 Comp Metabolic Ytr602 ALK PHOS 81 U/L 02/07/2017 Comp Metabolic Bfh634 AST(SGOT) 22 U/L 02/07/2017 Comp Metabolic Wvr359 ALT(SGPT) 24 U/L 02/07/2017 Comp Metabolic Efg488 BILI T 0.3 mg/dL 02/07/2017 Comp Metabolic Wpt635 ALBUMIN 3.9 g/dL 02/07/2017 Comp Metabolic Dtu932 TPRO 5.8 g/dL 02/07/2017 Comp Metabolic Fry836 GLOB 1.9 g/dL 02/07/2017 Comp Metabolic Lyg727 A/G Ratio 2.0 Ratio 02/07/2017 Comp Metabolic Ses501 Osmo 280 mOsmo 02/07/2017 Uric Acid Ord77 Uric A 4.2 mg/dL 02/07/2017 Uric Acid Ord77 Uric A 4.9 mg/dL 01/31/2017 Comp Metabolic Pxy650 NA 142 mEq/L 01/31/2017 Comp Metabolic Daa872 K 4.7 mEq/L 01/31/2017 Comp Metabolic Cmj970 CL 106 mEq/L 01/31/2017 Comp Metabolic Wsa442 CO2 32.0 mEq/L 01/31/2017 Comp Metabolic Xwh679 ANION GAP 9 01/31/2017 Comp Metabolic Rzu848 GLUCOSE 93 mg/dL 01/31/2017 Comp Metabolic Pzq147 Creat 1.0 mg/dL 01/31/2017 Comp Metabolic Ami672 eGFR 83 ml/min/1.73m2 01/31/2017 Comp Metabolic Xnn252 BUN 20 mg/dL 01/31/2017 Comp Metabolic Xld275 B/C Ratio 21.1 Ratio 01/31/2017 Comp Metabolic Nxa389 CALCIUM 9.1 mg/dL 01/31/2017 Comp Metabolic Pay466 ALK PHOS 80 U/L 01/31/2017 Comp Metabolic Eis144 AST(SGOT) 22 U/L 01/31/2017 Comp Metabolic Hsn599 ALT(SGPT) 24 U/L 01/31/2017 Comp Metabolic Ibv537 BILI T 0.4 mg/dL 01/31/2017 Comp Metabolic Jqe751 ALBUMIN 4.0 g/dL 01/31/2017 Comp Metabolic Hlw967 TPRO 6.0 g/dL 01/31/2017 Comp Metabolic Zpo645 GLOB 2.1 g/dL 01/31/2017 Comp Metabolic Fzc502 A/G Ratio 1.9 Ratio 01/31/2017 Comp Metabolic Olb106 Osmo 285 mOsmo 01/31/2017 Cbc With Differential [...] 94.4 fl 01/31/2017 Cbc With Differential Ord2 Hart% 7.9 % 01/31/2017 Cbc With Differential Ord2 [...] 0.38 K/ul 01/31/2017 Cbc With Differential Ord2 Hart ABS# 0.6 K/ul 01/31/2017 Cbc With Differential Ord2 Eos ABS# 0.1 K/ul 01/31/2017 Cbc With Differential Ord2 Baso ABS# 0.0 K/ul 01/31/2017 Magnesium Ord90 Mag 2.1 mg/dL 01/31/2017 Comp Metabolic Ncy461 NA 141 mEq/L 01/23/2017 Comp Metabolic Rws137 K 4.4 mEq/L 01/23/2017 Comp Metabolic Wju550 CL 104 mEq/L 01/23/2017 Comp Metabolic Kkw841 CO2 31.0 mEq/L 01/23/2017 Comp Metabolic Zmr719 ANION GAP 10 01/23/2017 Comp Metabolic Sjm292 GLUCOSE 109 mg/dL 01/23/2017 Comp Metabolic Amu519 Creat 1.1 mg/dL 01/23/2017 Comp Metabolic Xtg137 eGFR 71 ml/min/1.73m2 01/23/2017 Comp Metabolic Hfr953 BUN 22 mg/dL 01/23/2017 Comp Metabolic Rct121 B/C Ratio 20.4 Ratio 01/23/2017 Comp Metabolic Cxz048 CALCIUM 9.1 mg/dL 01/23/2017 Comp Metabolic Zuy510 ALK PHOS 76 U/L 01/23/2017 Comp Metabolic Pnt482 AST(SGOT) 22 U/L 01/23/2017 Comp Metabolic Soe547 ALT(SGPT) 22 U/L 01/23/2017 Comp Metabolic Amk280 BILI T 0.4 mg/dL 01/23/2017 Comp Metabolic Uwf226 ALBUMIN 3.8 g/dL 01/23/2017 Comp Metabolic Gbr324 TPRO 5.9 g/dL 01/23/2017 Comp Metabolic Ssn155 GLOB 2.1 g/dL 01/23/2017 Comp Metabolic Jsa922 A/G Ratio 1.8 Ratio 01/23/2017 Comp Metabolic Wfe624 Osmo 285 mOsmo 01/23/2017 Uric Acid Ord77 Uric A 5.4 mg/dL 01/23/2017 Cbc With Differential Ord2 WBC [...] 32.1 pg 01/23/2017 Cbc With Differential Ord2 Hart% 8.9 % 01/23/2017 Cbc With Differential Ord2 MCHC 34.0 pg 01/23/2017 Cbc With Differential Ord2 Eos% 1.5 % 01/23/2017 Cbc With Differential Ord2 PLT 177 K/ul 01/23/2017 Cbc With Differential Ord2 Baso% 0.2 % 01/23/2017 Cbc With Differential Ord2 RDW 14.5 % 01/23/2017 Cbc With Differential Ord2 Neut ABS# 4.81 K/ul 01/23/2017 Cbc With Differential Ord2 Lymph ABS# 0.42 K/ul 01/23/2017 Cbc With Differential Ord2 Hart ABS# 0.5 K/ul 01/23/2017 Cbc With Differential Ord2 Eos ABS# 0.1 K/ul 01/23/2017 Cbc With Differential Ord2 Baso ABS# 0.0 K/ul 01/23/2017 Magnesium Ord90 Mag 2.0 mg/dL 01/23/2017 Cbc With Differential Ord2 WBC 6.43 K/ul 01/10/2017 Cbc With Differential Ord2 RBC 4.61 M/ul 01/10/2017 Cbc With Differential Ord2 HGB 14.7 g/dl 01/10/2017 Cbc With Differential Ord2 HCT 43.6 % 01/10/2017 Cbc With Differential Ord2 Neut% 78.6 % 01/10/2017 Cbc With Differential Ord2 MCV 94.6 fl 01/10/2017 Cbc With Differential Ord2 Lymph% 9.6 % 01/10/2017 Cbc With Differential Ord2 MCH 31.9 pg 01/10/2017 Cbc With Differential Ord2 Hart% 9.6 % 01/10/2017 Cbc With Differential Ord2 MCHC 33.7 pg 01/10/2017 Cbc With Differential Ord2 Eos% 1.9 % 01/10/2017 Cbc With Differential Ord2 PLT 201 K/ul 01/10/2017 Cbc With Differential Ord2 Baso% 0.3 % 01/10/2017 Cbc With Differential Ord2 RDW 14.6 % 01/10/2017 Cbc With Differential Ord2 Neut ABS# 5.05 K/ul 01/10/2017 Cbc With Differential Ord2 Lymph ABS# 0.62 K/ul 01/10/2017 Cbc With Differential Ord2 Hart ABS# 0.6 K/ul 01/10/2017 Cbc With Differential Ord2 Eos ABS# 0.1 K/ul 01/10/2017 Cbc With Differential Ord2 Baso ABS# 0.0 K/ul 01/10/2017 Comp Metabolic Lcv806 NA 141 mEq/L 01/10/2017 Comp Metabolic Nbu768 K 4.8 mEq/L 01/10/2017 Comp Metabolic Uwt893 CL 106 mEq/L 01/10/2017 Comp Metabolic Apt293 CO2 29.0 mEq/L 01/10/2017 Comp Metabolic Hvs530 ANION GAP 11 01/10/2017 Comp Metabolic Lzm666 GLUCOSE 73 mg/dL 01/10/2017 Comp Metabolic Tet568 Creat 0.9 mg/dL 01/10/2017 Comp Metabolic Kfk165 eGFR 93 ml/min/1.73m2 01/10/2017 Comp Metabolic Aek215 BUN 19 mg/dL 01/10/2017 Comp Metabolic Tlq991 B/C Ratio 22.1 Ratio 01/10/2017 Comp Metabolic Kux651 CALCIUM 9.0 mg/dL 01/10/2017 Comp Metabolic Lho849 ALK PHOS 80 U/L 01/10/2017 Comp Metabolic Bsw093 AST(SGOT) 24 U/L 01/10/2017 Comp Metabolic Eqa908 ALT(SGPT) 28 U/L 01/10/2017 Comp Metabolic Hxp840 BILI T 0.4 mg/dL 01/10/2017 Comp Metabolic Lai521 ALBUMIN 3.8 g/dL 01/10/2017 Comp Metabolic Scn628 TPRO 5.9 g/dL 01/10/2017 Comp Metabolic Upc318 GLOB 2.1 g/dL 01/10/2017 Comp Metabolic Omh418 A/G Ratio 1.9 Ratio 01/10/2017 Comp Metabolic Uem444 Osmo 282 mOsmo 01/10/2017 Testosterone Xha971 Testo 321.3 ng/dL 01/10/2017 Cbc With Differential Ord2 WBC 6.19 [...] 31.8 pg 01/03/2017 Cbc With Differential Ord2 Hart% 8.6 % 01/03/2017 Cbc With Differential Ord2 [...] 0.42 K/ul 01/03/2017 Cbc With Differential Ord2 Hart ABS# 0.5 K/ul 01/03/2017 Cbc With Differential Ord2 Eos ABS# 0.1 K/ul 01/03/2017 Cbc With Differential Ord2 Baso ABS# 0.0 K/ul 01/03/2017 Comp Metabolic Ryv716 NA 140 mEq/L 01/03/2017 Comp Metabolic Ghw554 K 4.7 mEq/L 01/03/2017 Comp Metabolic Zyg507 CL 106 mEq/L 01/03/2017 Comp Metabolic Css548 CO2 28.0 mEq/L 01/03/2017 Comp Metabolic Jmn217 ANION GAP 11 01/03/2017 Comp Metabolic Ort588 GLUCOSE 126 mg/dL 01/03/2017 Comp Metabolic Hkf752 Creat 0.9 mg/dL 01/03/2017 Comp Metabolic Ihm107 eGFR 88 ml/min/1.73m2 01/03/2017 Comp Metabolic Kbz979 BUN 23 mg/dL 01/03/2017 Comp Metabolic Nsj638 B/C Ratio 25.6 Ratio 01/03/2017 Comp Metabolic Hhv880 CALCIUM 8.8 mg/dL 01/03/2017 Comp Metabolic Ojm796 ALK PHOS 73 U/L 01/03/2017 Comp Metabolic Obw605 AST(SGOT) 25 U/L 01/03/2017 Comp Metabolic Xhn013 ALT(SGPT) 30 U/L 01/03/2017 Comp Metabolic Wec068 BILI T 0.4 mg/dL 01/03/2017 Comp Metabolic Poe852 ALBUMIN 3.9 g/dL 01/03/2017 Comp Metabolic Bnp322 TPRO 5.9 g/dL 01/03/2017 Comp Metabolic Xsz755 GLOB 2.1 g/dL 01/03/2017 Comp Metabolic Hoi753 A/G Ratio 1.9 Ratio 01/03/2017 Comp Metabolic Npr573 Osmo 285 mOsmo 01/03/2017 Cbc With Differential [...] 31.7 pg 12/12/2016 Cbc With Differential Ord2 Hart% 8.9 % 12/12/2016 Cbc With Differential Ord2 [...] 0.80 K/ul 12/12/2016 Cbc With Differential Ord2 Hart ABS# 0.5 K/ul 12/12/2016 Cbc With Differential Ord2 Eos ABS# 0.1 K/ul 12/12/2016 Cbc With Differential Ord2 Baso ABS# 0.1 K/ul 12/12/2016 Comp Metabolic Pyw339 NA 140 mEq/L 12/12/2016 Comp Metabolic Lvm779 K 3.8 mEq/L 12/12/2016 Comp Metabolic Uin028 CL 105 mEq/L 12/12/2016 Comp Metabolic Kuu671 CO2 26.0 mEq/L 12/12/2016 Comp Metabolic Nvf848 ANION GAP 13 12/12/2016 Comp Metabolic Avg413 GLUCOSE 112 mg/dL 12/12/2016 Comp Metabolic Hfg882 Creat 0.9 mg/dL 12/12/2016 Comp Metabolic Evz767 eGFR 89 ml/min/1.73m2 12/12/2016 Comp Metabolic Vcs783 BUN 16 mg/dL 12/12/2016 Comp Metabolic Its622 B/C Ratio 18.0 Ratio 12/12/2016 Comp Metabolic Hvm211 CALCIUM 8.6 mg/dL 12/12/2016 Comp Metabolic Dzo833 ALK PHOS 80 U/L 12/12/2016 Comp Metabolic Izn504 AST(SGOT) 21 U/L 12/12/2016 Comp Metabolic Xwf325 ALT(SGPT) 23 U/L 12/12/2016 Comp Metabolic Gwe710 BILI T 0.4 mg/dL 12/12/2016 Comp Metabolic Dhl665 ALBUMIN 3.7 g/dL 12/12/2016 Comp Metabolic Umb368 TPRO 5.6 g/dL 12/12/2016 Comp Metabolic Gmt448 GLOB 1.9 g/dL 12/12/2016 Comp Metabolic Bbq115 A/G Ratio 2.0 Ratio 12/12/2016 Comp Metabolic Fcd726 Osmo 281 mOsmo 12/12/2016 Comp Metabolic Ihk174 NA 140 mEq/L 12/05/2016 Comp Metabolic Zat105 K 4.6 mEq/L 12/05/2016 Comp Metabolic Hrr987 CL 104 mEq/L 12/05/2016 Comp Metabolic Qbg117 CO2 29.0 mEq/L 12/05/2016 Comp Metabolic Bby059 ANION GAP 12 12/05/2016 Comp Metabolic Aid101 GLUCOSE 93 mg/dL 12/05/2016 Comp Metabolic Qvu117 Creat 0.8 mg/dL 12/05/2016 Comp Metabolic Gon488 eGFR 98 ml/min/1.73m2 12/05/2016 Comp Metabolic Hak933 BUN 20 mg/dL 12/05/2016 Comp Metabolic Itl455 B/C Ratio 24.4 Ratio 12/05/2016 Comp Metabolic Uyb475 CALCIUM 8.8 mg/dL 12/05/2016 Comp Metabolic Qwy338 ALK PHOS 82 U/L 12/05/2016 Comp Metabolic Ash213 AST(SGOT) 24 U/L 12/05/2016 Comp Metabolic Zpp259 ALT(SGPT) 28 U/L 12/05/2016 Comp Metabolic Svt480 BILI T 0.4 mg/dL 12/05/2016 Comp Metabolic Yrd961 ALBUMIN 3.9 g/dL 12/05/2016 Comp Metabolic Mtt536 TPRO 5.9 g/dL 12/05/2016 Comp Metabolic Rzq556 GLOB 2.0 g/dL 12/05/2016 Comp Metabolic Ori851 A/G Ratio 2.0 Ratio 12/05/2016 Comp Metabolic Gtf944 Osmo 282 mOsmo 12/05/2016 Cbc With Differential Ord2 WBC 7.85 K/ul 12/05/2016 Cbc With Differential Ord2 RBC 4.66 M/ul 12/05/2016 Cbc With Differential Ord2 HGB 14.6 g/dl 12/05/2016 Cbc With Differential Ord2 HCT 44.0 % 12/05/2016 Cbc With Differential Ord2 Neut% 73.6 % 12/05/2016 Cbc With Differential Ord2 MCV 94.4 fl 12/05/2016 Cbc With Differential Ord2 Lymph% 14.8 % 12/05/2016 Cbc With Differential Ord2 MCH 31.3 pg 12/05/2016 Cbc With Differential Ord2 Hart% 8.8 % 12/05/2016 Cbc With Differential Ord2 MCHC 33.2 pg 12/05/2016 Cbc With Differential Ord2 Eos% 2.3 % 12/05/2016 Cbc With Differential Ord2 Baso% 0.5 % 12/05/2016 Cbc With Differential Ord2 PLT 196 K/ul 12/05/2016 Cbc With Differential Ord2 RDW 15.2 % 12/05/2016 Cbc With Differential Ord2 Neut ABS# 5.78 K/ul 12/05/2016 Cbc With Differential Ord2 Lymph ABS# 1.16 K/ul 12/05/2016 Cbc With Differential Ord2 Hart ABS# 0.7 K/ul 12/05/2016 Cbc With Differential [...] Code : 8480-6 BMI: 30.0 Code : 64959-1 Heart Rate 1 : 70 bpm Height: 6' SpO2: 98% Weight: 221 lbs 02/01/2018 Blood Pressure 1: 144/76 Code : 8480-6 BMI: 30.0 Code : 24934-0 Heart Rate 1 : 66 bpm Height: 6' SpO2: 99% Weight: 221 lbs 01/02/2018 Blood Pressure 1: 130/76 Code : 8480-6 BMI: 29.4 Code : 97486-1 Heart Rate 1 : 90 bpm Height: 6' SpO2: 99% Weight: 217 lbs 12/21/2017 Blood Pressure 1: 142/80 Code : 8480-6 BMI: 29.7 Code : 53658-2 Heart Rate 1 : 74 bpm Height: 6' SpO2: 96% Weight: 219 lbs 11/22/2017 Blood Pressure 1: 130/72 Code : 8480-6 BMI: 29.8 Code : 32707-1 Heart Rate 1 : 53 bpm Height: 6' SpO2: 97% Weight: 220 lbs 07/19/2017 Blood Pressure 1: 142/80 Code : 8480-6 BMI: 30.1 Code : 33580-1 Heart Rate 1 : 60 bpm Height: 6' SpO2: 99% Weight: 222 lbs 06/05/2017 Blood Pressure 1: 136/74 Code : 8480-6 BMI: 30.2 Code : 83092-8 Heart Rate 1 : 59 bpm Height: 6' SpO2: 98% Weight: 223 lbs 05/03/2017 Blood Pressure 1: 128/80 Code : 8480-6 BMI: 30.2 Code : 47884-0 Heart Rate 1 : 79 bpm Height: 6' SpO2: 98% Weight: 223 lbs 02/27/2017 Blood Pressure 1: 126/66 Code : 8480-6 BMI: 30.2 Code : 49510-5 Heart Rate 1 : 61 bpm Height: 6' SpO2: 99% Weight: 223 lbs 01/10/2017 Blood Pressure 1: 136/70 Code : 8480-6 BMI: 30.0 Code : 42550-4 Heart Rate 1 : 62 bpm Height: 6' SpO2: 98% Weight: 221 lbs 8 oz 12/05/2016 Blood Pressure 1: 138/74 Code : 8480-6 BMI: 29.3 Code : 80882-7 Heart Rate 1 : 62 bpm Height: [...] data Encounters Encounter Performer Location Codes Date ([id number]) [id number] EST. PATIENT, LEVEL IV Diagnosis: Generalized anxiety disorder[ICD10: F41.1] Diagnosis: Pain in left foot[ICD10: M79.672] Harriet Salomon MD, [facility] CPT-4: 36212 02/22/2018 ([id number]) 53427 EST. PATIENT, LEVEL IV Diagnosis: Generalized anxiety disorder[ICD10: F41.1] Diagnosis: Major depressive disorder, single episode, moderate[ICD10: F32.1] Diagnosis: Adjustment insomnia[ICD10: F51.02] Nalini Salomon MD, [facility] CPT-4: 51227 02/01/2018 43982 EST. PATIENT, LEVEL III Diagnosis: Generalized anxiety disorder[ICD10: F41.1] Diagnosis: Major depressive disorder, single episode, moderate[ICD10: F32.1] Leonor Salomon MD, [facility] CPT-4: 89519 01/02/2018 [id number]) [id number] EST. PATIENT, LEVEL III Diagnosis: Concussion without loss of consciousness, initial encounter[ICD10: S06.0X0A] Diagnosis: Laceration without foreign body of other part of head, initial encounter[ICD10: S01.81XA] Harriet Salomon MD, [facility] CPT-4: 22407 12/21/2017 ([id number]) 50676 EST. 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 PATIENT, LEVEL III Diagnosis: Rash and other nonspecific skin eruption[ICD10: R21] Diagnosis: Slow transit constipation[ICD10: K59.01] Harriet Salomon MD [facility] CPT-4: 55298 07/19/2017 ([id number]) 82484 EST. PATIENT, LEVEL III Diagnosis: Epigastric pain[ICD10: R10.13] Harriet Salomon MD [facility] CPT- 4: 68756 06/05/2017 ([id number]) 50591 EST. 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 PATIENT, LEVEL IV Diagnosis: Chronic lymphocytic leukemia of B-cell type not having achieved remission[ICD10: C91.10] Diagnosis: Periumbilical pain[ICD10: R10.33] Harriet Salomon MD, [facility] CPT-4: 57650 02/27/2017 ([id number]) 86812 EST. 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 02/22/2018 Patient Education: Patient Medication Summary Completed 02/22/2018 App[facility]ment[phone] (15 min) Moderate 02/21/2018 Visit Plan: Depression [...] time insomnia. 02/01/2018 [phone] [phone] (15 min) Moderate 02/01/2018 Patient Education: Patient [...] this patient. 01/02/2018 Appointment: Leonor Niño [facility]el: [facility] (15 min) Moderate 01/02/2018 Patient Education: Patient [...] at times. 12/21/2017 Appointment: Harriet Salomon WPtel: [facility] [place] (15 min) Moderate 12/21/2017 Patient Education: Patient [...] this time. 11/22/2017 Appointment: Harriet Salomon WPtel: [facility] [place] (15 min) Moderate 11/22/2017 Patient Education: Patient Medication Summary Completed 11/22/2017 Visit Plan: CLL - pt has finished chemotherapy - continue with follow up with Dr. Austin. Umbilical hernia -pt is not interested in surgery right now. Constipation - continue with current regimen - add prune juice - keep appt for colonoscopy and EGD. 07/19/2017 Appointment: Harriet Salomon WPtel: [facility] [place] (15 min) Moderate 07/19/2017 Patient Education: Patient Medication Summary Completed 07/19/2017 Visit Plan: Epigastric abdominal pain - pt advised to avoid dairy products - pt to start on start on the carafate and restart pepcid 06/05/2017 Appointment: Harriet Salomon WPtel: [facility] [place] (15 min) Moderate 06/05/2017 Patient Education: [...] surgery. 05/03/2017 Appointment: Harriet Salomon [facility]el: [phone] [facility] [place] (15 min) Moderate 05/03/2017 Patient Education: Patient Medication Summary Completed 05/03/2017 Visit Plan: CLL - continue with chemotherapy. Umbilical hernia - agree with plans for pt to have re-evaluation with surgeon after his chemotherapy is complete. 02/27/2017 Appointment: Harriet Salomon [facility]el: [phone] [facility] [place] (15 min) Moderate 02/27/2017 Patient Education: Patient [...] is completed. 01/10/2017 Appointment: Harriet Salomon [facility]Ptel: [phone] [facility] [place] (15 min) Moderate 01/10/2017 Patient Education: Patient Medication Summary Completed 01/10/2017 Patient Education: Obesity Completed 01/10/2017 Care Plan: ASSAY OF TOTAL TESTOSTERONE LOINC : 98226-5 Pending 01/10/2017 Appointment: Harriet Salomon [facility]Ptel: [phone] [facility] [place] (15 min) Moderate 01/02/2017 Visit Plan: Umbilical [...] this regimen. 12/05/2016 Appointment: Harriet Salomon WPtel: [facility] New Patient 12/05/2016 Patient Education: Patient Medication Summary Completed 12/05/2016 Instructions Comment START LEXAPRO 1/2 PILL DAILY TO SEE [...] start on the carafate and restart pepcid please have the generalist look at the rough area below your [...]
--- OUTSIDE RECORDS SUMMARY | 2018-05-10 18:40 | XMS REPORT | CCD ---
Author Author [facility] Organization [facility] Address [address] [place] [address] Phone Care Team Providers Care Materials Specialist Name Role Phone PP Unavailable CCM Unavailable Summary Purpose Interface Exchange Insurance Providers Payer name Policy type / Coverage type Covered libertarian ID Effective Begin Date Effective End Date WPS Medicare Part B Medicare Part B [id number] 2017 Unknown AARP Medicare Part B [id number] Unknown Family history Father Diagnosis Age At Onset brain cancer Unknown Skin cancer Unknown Mother Diagnosis Age At Onset Cancer Unknown Daughter Diagnosis Age At Onset Celiac disease Unknown Social History Social History Element Codes Description Effective Dates Marital status Unknown Single 12/05/2016 Number of children Unknown 2 12/05/2016 Employment Unknown 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 Unknown Has never used illegal drugs 12/05/2016 Allergies, Adverse Reactions, Alerts Substance Reaction Codes Entered Date Inactivated Date Status * NO KNOWN DRUG ALLERGIES Unknown 12/05/2016 No Inactive Date Active Past Medical History Illness Codes Condition Status Onset Date Resolved Date Adjustment insomnia ICD-9: 307.41 ICD-10: F51.02 Active 02/01/2018 Unknown Generalized anxiety disorder ICD-9: 300.00 ICD-10: F41.1 Active 01/02/2018 Unknown Major depressive disorder, single episode, moderate [...] Problems Condition Codes Effective Dates Condition Status Adjustment insomnia ICD-9: 307.41 ICD-10: F51.02 02/01/2018 Active Generalized anxiety disorder ICD-9: 300.00 ICD-10: F41.1 01/02/2018 Active Major depressive disorder, single episode, moderate [...] Fill Instructions temazepam 7.5 mg capsule RxNorm: 342525 1 Capsule(s) PO QHS 02/15/2018 Active temazepam 7.5 mg capsule RxNorm: 071085 1 Capsule(s) PO QHS 01/16/2018 Inactive Restoril 15 mg capsule RxNorm: 291412 1 Capsule(s) PO daily 01/31/2018 Inactive Restoril 7.5 mg capsule RxNorm: 833535 1 Capsule(s) PO daily 01/07/2018 Inactive Restoril 7.5 mg capsule RxNorm: 551560 1 Capsule(s) PO daily 01/09/2018 Inactive Lexapro 10 mg tablet RxNorm: 781189 1 Tablet(s) PO QHS 201701/31/2018 Inactive Voltaren 1 % topical gel RxNorm: 823493 4 Gram(s) TOP QID as needed 11/22/2017 No Stop Date Active Viagra 100 mg tablet RxNorm: 766719 1 Tablet(s) PO PRN sexual encounter 10/02/2017 No Stop Date Active promethazine 6.25 mg-codeine 10 mg/5 mL syrup RxNorm: 068835 5-10 Milliliter(s) PO Q6 as needed 10/02/2017 12/20/2017 Inactive Keflex 500 mg capsule RxNorm: 934012 1 Capsule(s) PO TID 201707/25/2017 Inactive Pepcid 20 mg tablet RxNorm: 584898 1 Tablet(s) PO BID 201707/18/2017 Inactive Carafate 1 gram tablet RxNorm: 042622 1 Tablet(s) PO QID 201707/04/2017 Inactive Pepcid 20 mg tablet RxNorm: 767510 1 Tablet(s) PO BID 201706/04/2017 Inactive mupirocin 2 % topical cream RxNorm: 707069 1 Application TOP BID 02/27/2017 03/08/2017 Inactive meclizine 25 mg tablet RxNorm: 357505 1 Tablet(s) PO TID as needed nausea 01/27/2017 03/27/2017 Inactive meclizine 25 mg tablet RxNorm: 705398 1 Tablet(s) PO TID as needed nausea 01/27/2017 01/26/2017 Inactive scopolamine 1 mg over 3 days transdermal patch RxNorm: 383459 1 TD Q72H 01/10/2017 02/26/2017 Inactive ibuprofen 200 mg tablet RxNorm: 115049 1 Tablet(s) PO No Start Date Active vitamin E (dl, acetate) oral RxNorm: oral No Start Date Active Viagra 100 mg tablet RxNorm: 539019 1 Tablet(s) PO PRN sexual encounter No Start Date 10/01/2017 Inactive promethazine 6.25 mg-codeine 10 mg/5 mL syrup RxNorm: 172207 5-10 Milliliter(s) PO Q6 as needed No Start Date 10/01/2017 Inactive Medication Administered No Medication Administered data Immunizations No Immunization data Assessments Condition Codes Effective Dates Generalized anxiety disorder ICD-10: F41.1 ICD-9: 300.00 02/01/2018 Adjustment insomnia ICD-10: F51.02 ICD-9: 307.41 02/01/2018 [...] Visit Reason For Visit Effective Dates Notes memory loss 02/01/2018 wound follow up 01/02/2018 office procedure 12/21/2017 abdominal pain 11/22/2017 abdominal pain 07/19/2017 abdominal pain 06/05/2017 arthralgia(s) 05/03/2017 nausea 02/27/2017 nausea 01/10/2017 nausea 12/05/2016 Results Observation Observation Code Item Item Code Result Date Comp Metabolic Gdm384 NA 139 mEq/L 12/18/2017 Comp Metabolic Fap328 K 4.6 mEq/L 12/18/2017 Comp Metabolic Zad810 CL 105 mEq/L 12/18/2017 Comp Metabolic Jxi985 CO2 27.0 mEq/L 12/18/2017 Comp Metabolic Zcx318 ANION GAP 12 12/18/2017 Comp Metabolic Gir039 GLUCOSE 126 mg/dL 12/18/2017 Comp Metabolic Qeo058 Creat 0.9 mg/dL 12/18/2017 Comp Metabolic Knc813 eGFR 89 ml/min/1.73m2 12/18/2017 Comp Metabolic Tcz479 BUN 19 mg/dL 12/18/2017 Comp Metabolic Ake592 B/C Ratio 21.3 Ratio 12/18/2017 Comp Metabolic Rqr325 CALCIUM 8.8 mg/dL 12/18/2017 Comp Metabolic Xsk192 ALK PHOS 99 U/L 12/18/2017 Comp Metabolic Dgb348 AST(SGOT) 31 U/L 12/18/2017 Comp Metabolic Keu261 ALT(SGPT) 46 U/L 12/18/2017 Comp Metabolic Moi691 BILI T 0.5 mg/dL 12/18/2017 Comp Metabolic Dzk492 ALBUMIN 3.9 g/dL 12/18/2017 Comp Metabolic Wip734 TPRO 5.8 g/dL 12/18/2017 Comp Metabolic Fkv017 GLOB 2.0 g/dL 12/18/2017 Comp Metabolic Iol368 A/G Ratio 2.0 Ratio 12/18/2017 Comp Metabolic Bhk767 Osmo 281 mOsmo 12/18/2017 Magnesium Ord90 Mag 2.1 mg/dL 12/18/2017 Ldh Ord92 LDH 163 U/L 12/18/2017 Cbc With Differential Ord2 WBC 3.65 K/ul 12/18/2017 Cbc With Differential Ord2 RBC 4.64 M/ul 12/18/2017 Cbc With Differential Ord2 HGB 15.0 g/dl 12/18/2017 Cbc With Differential Ord2 Neut% 76.3 % 12/18/2017 Cbc With Differential Ord2 HCT 44.2 % 12/18/2017 Cbc With Differential Ord2 Lymph% 14.5 % 12/18/2017 Cbc With Differential Ord2 MCV 95.3 fl 12/18/2017 Cbc With Differential Ord2 MCH 32.3 pg 12/18/2017 Cbc With Differential Ord2 Conway% 6.8 % 12/18/2017 Cbc With Differential Ord2 [...] 0.53 K/ul 12/18/2017 Cbc With Differential Ord2 [place] ABS# 0.3 K/ul 12/18/2017 Cbc With Differential [...] 44.5 % 09/22/2017 Cbc With Differential Ord2 Lymph% 12.8 % 09/22/2017 Cbc With Differential Ord2 MCV 94.7 fl 09/22/2017 Cbc With Differential Ord2 MCH 32.1 pg 09/22/2017 Cbc With Differential Ord2 Conway% 11.2 % 09/22/2017 Cbc With Differential Ord2 Eos% 1.4 % 09/22/2017 Cbc With Differential Ord2 MCHC 33.9 pg 09/22/2017 Cbc With Differential Ord2 PLT 162 K/ul 09/22/2017 Cbc With Differential Ord2 Baso% 0.6 % 09/22/2017 Cbc With Differential Ord2 RDW 13.8 % 09/22/2017 Cbc With Differential Ord2 Neut ABS# 2.65 K/ul 09/22/2017 Cbc With Differential Ord2 Lymph ABS# 0.46 K/ul 09/22/2017 Cbc With Differential Ord2 [place] ABS# 0.4 K/ul 09/22/2017 Cbc With Differential Ord2 Eos ABS# 0.1 K/ul 09/22/2017 Cbc With Differential Ord2 Baso ABS# 0.0 K/ul 09/22/2017 Uric Acid Ord77 Uric A 5.5 mg/dL 09/22/2017 Ldh Ord92 LDH 130 U/L 09/22/2017 Comp Metabolic Szr332 NA 141 mEq/L 09/22/2017 Comp Metabolic Tgc116 K 5.2 mEq/L 09/22/2017 Comp Metabolic Bqd855 CL 106 mEq/L 09/22/2017 Comp Metabolic Cmv354 CO2 29.0 mEq/L 09/22/2017 Comp Metabolic Fxw494 ANION GAP 11 09/22/2017 Comp Metabolic Koj569 GLUCOSE 115 mg/dL 09/22/2017 Comp Metabolic Dxv092 Creat 0.9 mg/dL 09/22/2017 Comp Metabolic Xum291 eGFR 88 ml/min/1.73m2 09/22/2017 Comp Metabolic Pxs909 BUN 18 mg/dL 09/22/2017 Comp Metabolic Kgo186 B/C Ratio 20.0 Ratio 09/22/2017 Comp Metabolic Kis763 CALCIUM 8.7 mg/dL 09/22/2017 Comp Metabolic Urw575 ALK PHOS 103 U/L 09/22/2017 Comp Metabolic Xmf694 AST(SGOT) 32 U/L 09/22/2017 Comp Metabolic Wel371 ALT(SGPT) 51 U/L 09/22/2017 Comp Metabolic Qas076 BILI T 0.4 mg/dL 09/22/2017 Comp Metabolic Rpq589 ALBUMIN 3.8 g/dL 09/22/2017 Comp Metabolic Ncm684 TPRO 5.8 g/dL 09/22/2017 Comp Metabolic Knb606 GLOB 2.0 g/dL 09/22/2017 Comp Metabolic Cob765 A/G Ratio 1.8 Ratio 09/22/2017 Comp Metabolic Qlg210 Osmo 284 mOsmo 09/22/2017 Comp Metabolic Vhi792 NA 140 mEq/L 06/27/2017 Comp Metabolic Cte075 K 4.6 mEq/L 06/27/2017 Comp Metabolic Dmt745 CL 105 mEq/L 06/27/2017 Comp Metabolic Qlp585 CO2 30.0 mEq/L 06/27/2017 Comp Metabolic Rqz151 ANION GAP 10 06/27/2017 Comp Metabolic Jna401 GLUCOSE 95 mg/dL 06/27/2017 Comp Metabolic Ury106 Creat 0.8 mg/dL 06/27/2017 Comp Metabolic Vlb613 eGFR 95 ml/min/1.73m2 06/27/2017 Comp Metabolic Ofy117 BUN 14 mg/dL 06/27/2017 Comp Metabolic Tko361 B/C Ratio 16.7 Ratio 06/27/2017 Comp Metabolic Yds250 CALCIUM 9.1 mg/dL 06/27/2017 Comp Metabolic Hok347 ALK PHOS 129 U/L 06/27/2017 Comp Metabolic Wvk366 AST(SGOT) 29 U/L 06/27/2017 Comp Metabolic Zjt872 ALT(SGPT) 33 U/L 06/27/2017 Comp Metabolic Sdl166 BILI T 0.5 mg/dL 06/27/2017 Comp Metabolic Iqr914 ALBUMIN 3.9 g/dL 06/27/2017 Comp Metabolic Cxu027 TPRO 6.0 g/dL 06/27/2017 Comp Metabolic Pdr132 GLOB 2.1 g/dL 06/27/2017 Comp Metabolic Uqj831 A/G Ratio 1.9 Ratio 06/27/2017 Comp Metabolic Iwq877 Osmo 280 mOsmo 06/27/2017 Ldh Ord92 LDH 173 U/L 06/27/2017 Uric Acid Ord77 Uric A 5.1 mg/dL 06/27/2017 Cbc With Differential Ord2 WBC 3.66 K/ul 06/27/2017 Cbc With Differential Ord2 RBC 4.64 M/ul 06/27/2017 Cbc With Differential Ord2 HGB 14.8 g/dl 06/27/2017 Cbc With Differential Ord2 HCT 43.4 % 06/27/2017 Cbc With Differential Ord2 Neut% 74.4 % 06/27/2017 Cbc With Differential Ord2 MCV 93.5 fl 06/27/2017 Cbc With Differential Ord2 Lymph% 13.7 % 06/27/2017 Cbc With Differential Ord2 MCH 31.9 pg 06/27/2017 Cbc With Differential Ord2 Conway% 9.8 % 06/27/2017 Cbc With Differential Ord2 MCHC 34.1 pg 06/27/2017 Cbc With Differential Ord2 Eos% 1.6 % 06/27/2017 Cbc With Differential Ord2 Baso% 0.5 % 06/27/2017 Cbc With Differential Ord2 PLT 191 K/ul 06/27/2017 Cbc With Differential Ord2 Neut ABS# 2.72 K/ul 06/27/2017 Cbc With Differential Ord2 RDW 13.8 % 06/27/2017 Cbc With Differential Ord2 Lymph ABS# 0.50 K/ul 06/27/2017 Cbc With Differential Ord2 [place] ABS# 0.4 K/ul 06/27/2017 Cbc With Differential Ord2 Eos ABS# 0.1 K/ul 06/27/2017 Cbc With Differential Ord2 Baso ABS# 0.0 K/ul 06/27/2017 [facility]eli[facility] 49124 IMMUNOGLOBULIN A-SERUM . 06/20/2017 [facility] 20652 IMMUNOGLOBULIN A-SERUM 89 mg/dL 06/20/2017 [facility] 58135 GLIADIN ANTIBODY, IGG . 06/20/2017 [facility] 19970 GLIADIN ANTIBODY, IGG 3 EU/mL 06/20/2017 [facility] 62368 GLIADIN ANTIBODY, IGA . 06/20/2017 [facility] 03305 GLIADIN ANTIBODY, IGA <9 EU/mL 06/20/2017 [facility] 25546 TISSUE TRANSGLUTAMINASE AB, IGG . 06/20/2017 [facility] 74155 TISSUE TRANSGLUTAMINASE-G 5 EU/mL 06/20/2017 [facility] 80231 TISSUE TRANS. AB IGA W/REFLEX . 06/20/2017 [facility] 55987 TISSUE TRANSGLUTAMINASE-A 6 EU/mL 06/20/2017 Allergen Profile, Comprehensive Food 22696 IMMUNOGLOBULIN E 3 IU/mL 06/19/2017 Allergen Profile, Comprehensive Food 38314 BACON'S YEAST <0.10 kU/L 06/19/2017 Allergen Profile, Comprehensive Food 68765 BARLEY <0.10 kU/L 06/19/2017 Allergen Profile, Comprehensive Food 97129 BEEF <0.10 kU/L 04/2017 Allergen Profile, Comprehensive Food 36177 CHICKEN MEAT <0.10 kU/L 06/19/2017 Allergen Profile, Comprehensive Food 84902 CHOCOLATE <0.10 kU/L 06/19/2017 Allergen Profile, Comprehensive Food 97153 COD <0.10 kU/L 04/2017 Allergen Profile, Comprehensive Food 76942 CORN <0.10 kU/L 04/2017 Allergen Profile, Comprehensive Food 32671 EGG WHITE <0.10 kU/L 06/19/2017 Allergen Profile, Comprehensive Food 65518 LETTUCE <0.10 kU/L 06/19/2017 Allergen Profile, Comprehensive Food 54552 MALT <0.10 kU/L 04/2017 Allergen Profile, Comprehensive Food 54574 MILK <0.10 kU/L 04/2017 Allergen Profile, Comprehensive Food 30988 OAT <0.10 kU/L 04/2017 Allergen Profile, Comprehensive Food 09096 ORANGE <0.10 kU/L 06/19/2017 Allergen Profile, Comprehensive Food 57815 PEANUT <0.10 kU/L 06/19/2017 Allergen Profile, Comprehensive Food 00066 PORK <0.10 kU/L 04/2017 Allergen Profile, Comprehensive Food 43424 POTATO <0.10 kU/L 06/19/2017 Allergen Profile, Comprehensive Food 35964 RYE <0.10 kU/L 04/2017 Allergen Profile, Comprehensive Food 65419 SHRIMP <0.10 kU/L 06/19/2017 Allergen Profile, Comprehensive Food 01312 SOYBEAN <0.10 kU/L 06/19/2017 Allergen Profile, Comprehensive Food 90337 TOMATO <0.10 kU/L 06/19/2017 Allergen Profile, Comprehensive Food 41602 WALNUT <0.10 kU/L 06/19/2017 Allergen Profile, Comprehensive Food 91483 WHEAT <0.10 kU/L Allergen Profile, Comprehensive Food 12599 STRAWBERRY <0.10 kU/L 06/19/2017 Allergen Profile, Comprehensive Food 36489 ALLERGEN INTERPRETATION 06/19/2017 Testosterone Kmy529 Testo 288.8 ng/dL 05/11/2017 Uric Acid Ord77 Uric A 6.0 mg/dL 05/05/2017 C-Reactive Protein Qnt Crqnt CRP 0.3 mg/dl 05/05/2017 Comp Metabolic Hwb206 NA 140 mEq/L 05/05/2017 Comp Metabolic Ith386 K 4.1 mEq/L 05/05/2017 Comp Metabolic Daw991 CL 106 mEq/L 05/05/2017 Comp Metabolic Tlw504 CO2 27.0 mEq/L 05/05/2017 Comp Metabolic Bvo867 ANION GAP 11 05/05/2017 Comp Metabolic Hxq667 GLUCOSE 107 mg/dL 05/05/2017 Comp Metabolic Zzk548 Creat 0.9 mg/dL 05/05/2017 Comp Metabolic Feo340 eGFR 89 ml/min/1.73m2 05/05/2017 Comp Metabolic Ntw072 BUN 10 mg/dL 05/05/2017 Comp Metabolic Qca163 B/C Ratio 11.2 Ratio 05/05/2017 Comp Metabolic Mps108 CALCIUM 8.6 mg/dL 05/05/2017 Comp Metabolic Ysg204 ALK PHOS 96 U/L 05/05/2017 Comp Metabolic Kqq895 AST(SGOT) 36 U/L 05/05/2017 Comp Metabolic Mvc481 ALT(SGPT) 40 U/L 05/05/2017 Comp Metabolic Jfo531 BILI T 0.3 mg/dL 05/05/2017 Comp Metabolic Peq274 ALBUMIN 3.8 g/dL 05/05/2017 Comp Metabolic Vcq177 TPRO 5.8 g/dL 05/05/2017 Comp Metabolic Xlf187 GLOB 2.0 g/dL 05/05/2017 Comp Metabolic Bls686 A/G Ratio 1.9 Ratio 05/05/2017 Comp Metabolic Tsf597 Osmo 279 mOsmo 05/05/2017 Magnesium Ord90 Mag 1.9 mg/dL 05/05/2017 Cbc With Differential Ord2 WBC 2.43 K/ul 05/05/2017 Cbc With Differential Ord2 RBC 4.66 M/ul 05/05/2017 Cbc With Differential Ord2 HGB 14.7 g/dl 05/05/2017 Cbc With Differential Ord2 Neut% 65.4 % 05/05/2017 Cbc With Differential Ord2 HCT 43.1 % 05/05/2017 Cbc With Differential Ord2 Lymph% 11.1 % 05/05/2017 Cbc With Differential Ord2 MCV 92.5 fl 05/05/2017 Cbc With Differential Ord2 MCH 31.5 pg 05/05/2017 Cbc With Differential Ord2 Conway% 20.6 % 05/05/2017 Cbc With Differential Ord2 [...] 0.27 K/ul 05/05/2017 Cbc With Differential Ord2 [place] ABS# 0.5 K/ul 05/05/2017 Cbc With Differential Ord2 Eos ABS# 0.1 K/ul 05/05/2017 Cbc With Differential Ord2 Baso ABS# 0.0 K/ul 05/05/2017 Sed Rate Ord21 ESR 22 mm/hr 05/05/2017 Magnesium Ord90 Mag 2.2 mg/dL 04/25/2017 Comp Metabolic Woy605 NA 143 mEq/L 04/25/2017 Comp Metabolic Pmx499 K 4.2 mEq/L 04/25/2017 Comp Metabolic Xxi282 CL 108 mEq/L 04/25/2017 Comp Metabolic Wri501 CO2 30.0 mEq/L 04/25/2017 Comp Metabolic Fdi635 ANION GAP 9 04/25/2017 Comp Metabolic Xvc616 GLUCOSE 80 mg/dL 04/25/2017 Comp Metabolic Cdi824 Creat 0.9 mg/dL 04/25/2017 Comp Metabolic Yvj979 eGFR 84 ml/min/1.73m2 04/25/2017 Comp Metabolic Our434 BUN 16 mg/dL 04/25/2017 Comp Metabolic Iqr139 B/C Ratio 17.0 Ratio 04/25/2017 Comp Metabolic Zlh347 CALCIUM 9.0 mg/dL 04/25/2017 Comp Metabolic Wly626 ALK PHOS 93 U/L 04/25/2017 Comp Metabolic Zpr294 AST(SGOT) 32 U/L 04/25/2017 Comp Metabolic Zds891 ALT(SGPT) 36 U/L 04/25/2017 Comp Metabolic Sdf607 BILI T 0.5 mg/dL 04/25/2017 Comp Metabolic Ymo822 ALBUMIN 3.9 g/dL 04/25/2017 Comp Metabolic Rnr235 TPRO 6.0 g/dL 04/25/2017 Comp Metabolic Tvo116 GLOB 2.1 g/dL 04/25/2017 Comp Metabolic Liy157 A/G Ratio 1.8 Ratio 04/25/2017 Comp Metabolic Ozl389 Osmo 285 mOsmo 04/25/2017 Cbc With Differential [...] 6.4 % 04/25/2017 Cbc With Differential Ord2 Conway% 10.2 % 04/25/2017 Cbc With Differential Ord2 MCH 31.8 pg 04/25/2017 Cbc With Differential Ord2 MCHC 34.0 pg 04/25/2017 Cbc With Differential Ord2 Eos% 2.0 % 04/25/2017 Cbc With Differential Ord2 Baso% 0.6 % 04/25/2017 Cbc With Differential Ord2 PLT 156 K/ul 04/25/2017 Cbc With Differential Ord2 Neut ABS# 4.02 K/ul 04/25/2017 Cbc With Differential Ord2 RDW 13.6 % 04/25/2017 Cbc With Differential Ord2 Lymph ABS# 0.32 K/ul 04/25/2017 Cbc With Differential Ord2 [place] ABS# 0.5 K/ul 04/25/2017 Cbc With Differential Ord2 Eos ABS# 0.1 K/ul 04/25/2017 Cbc With Differential Ord2 Baso ABS# 0.0 K/ul 04/25/2017 Uric Acid Ord77 Uric A 6.0 mg/dL 04/25/2017 Comp Metabolic Fob248 NA 142 mEq/L 04/18/2017 Comp Metabolic Sfz551 K 4.3 mEq/L 04/18/2017 Comp Metabolic Nuk619 CL 105 mEq/L 04/18/2017 Comp Metabolic Lgb345 CO2 30.0 mEq/L 04/18/2017 Comp Metabolic Sin747 ANION GAP 11 04/18/2017 Comp Metabolic Rif593 GLUCOSE 126 mg/dL 04/18/2017 Comp Metabolic Lta646 Creat 1.0 mg/dL 04/18/2017 Comp Metabolic Vje386 eGFR 83 ml/min/1.73m2 04/18/2017 Comp Metabolic Uaz644 BUN 17 mg/dL 04/18/2017 Comp Metabolic Auy796 B/C Ratio 17.9 Ratio 04/18/2017 Comp Metabolic Zbt260 CALCIUM 9.0 mg/dL 04/18/2017 Comp Metabolic Ppr087 ALK PHOS 100 U/L 04/18/2017 Comp Metabolic Leq755 AST(SGOT) 27 U/L 04/18/2017 Comp Metabolic Bgs912 ALT(SGPT) 36 U/L 04/18/2017 Comp Metabolic Xrc410 BILI T 0.5 mg/dL 04/18/2017 Comp Metabolic Tey752 ALBUMIN 3.8 g/dL 04/18/2017 Comp Metabolic Tvk660 TPRO 6.0 g/dL 04/18/2017 Comp Metabolic Thn945 GLOB 2.2 g/dL 04/18/2017 Comp Metabolic Nnq262 A/G Ratio 1.8 Ratio 04/18/2017 Comp Metabolic Pil442 Osmo 286 mOsmo 04/18/2017 Uric Acid Ord77 Uric A 5.9 mg/dL 04/18/2017 Magnesium Ord90 Mag 2.1 mg/dL 04/18/2017 Cbc With Differential Ord2 WBC 3.86 K/ul 04/18/2017 Cbc With Differential Ord2 RBC 4.86 M/ul 04/18/2017 Cbc With Differential Ord2 HGB 15.7 g/dl 04/18/2017 Cbc With Differential Ord2 HCT 45.7 % 04/18/2017 Cbc With Differential Ord2 Neut% 81.3 % 04/18/2017 Cbc With Differential Ord2 MCV 94.0 fl 04/18/2017 Cbc With Differential Ord2 Lymph% 6.0 % 04/18/2017 Cbc With Differential Ord2 Conway% 9.6 % 04/18/2017 Cbc With Differential Ord2 MCH 32.3 pg 04/18/2017 Cbc With Differential Ord2 Eos% 2.6 % 04/18/2017 Cbc With Differential Ord2 MCHC 34.4 pg 04/18/2017 Cbc With Differential Ord2 PLT 163 K/ul 04/18/2017 Cbc With Differential Ord2 Baso% 0.5 % 04/18/2017 Cbc With Differential Ord2 Neut ABS# 3.14 K/ul 04/18/2017 Cbc With Differential Ord2 RDW 13.7 % 04/18/2017 Cbc With Differential Ord2 Lymph ABS# 0.23 K/ul 04/18/2017 Cbc With Differential Ord2 [place] ABS# 0.4 K/ul 04/18/2017 Cbc With Differential Ord2 Eos ABS# 0.1 K/ul 04/18/2017 Cbc With Differential Ord2 Baso ABS# 0.0 K/ul 04/18/2017 Magnesium Ord90 Mag 2.2 mg/dL 03/30/2017 [...] 6.3 % 03/30/2017 Cbc With Differential Ord2 Conway% 12.1 % 03/30/2017 Cbc With Differential Ord2 MCH 32.0 pg 03/30/2017 Cbc With Differential Ord2 Eos% 1.8 % 03/30/2017 Cbc With Differential Ord2 MCHC 34.3 pg 03/30/2017 Cbc With Differential Ord2 Baso% 0.4 % 03/30/2017 Cbc With Differential Ord2 PLT 175 K/ul 03/30/2017 Cbc With Differential Ord2 Neut ABS# 5.31 K/ul 03/30/2017 Cbc With Differential Ord2 RDW 13.6 % 03/30/2017 Cbc With Differential Ord2 Lymph ABS# 0.42 K/ul 03/30/2017 Cbc With Differential Ord2 [place] ABS# 0.8 K/ul 03/30/2017 Cbc With Differential Ord2 Eos ABS# 0.1 K/ul 03/30/2017 Cbc With Differential Ord2 Baso ABS# 0.0 K/ul 03/30/2017 Comp Metabolic Imm171 NA 141 mEq/L 03/30/2017 Comp Metabolic Ecg663 K 4.7 mEq/L 03/30/2017 Comp Metabolic Tnx379 CL 106 mEq/L 03/30/2017 Comp Metabolic Rcg518 CO2 28.0 mEq/L 03/30/2017 Comp Metabolic Tkr045 ANION GAP 12 03/30/2017 Comp Metabolic Prz579 GLUCOSE 81 mg/dL 03/30/2017 Comp Metabolic Xsa105 Creat 1.0 mg/dL 03/30/2017 Comp Metabolic Xsv291 eGFR 80 ml/min/1.73m2 03/30/2017 Comp Metabolic Pri109 BUN 17 mg/dL 03/30/2017 Comp Metabolic Ymz537 B/C Ratio 17.3 Ratio 03/30/2017 Comp Metabolic Vtc297 CALCIUM 8.9 mg/dL 03/30/2017 Comp Metabolic Csk087 ALK PHOS 106 U/L 03/30/2017 Comp Metabolic Bgb219 AST(SGOT) 52 U/L 03/30/2017 Comp Metabolic Fav270 ALT(SGPT) 54 U/L 03/30/2017 Comp Metabolic Lsb776 BILI T 0.4 mg/dL 03/30/2017 Comp Metabolic Haw273 ALBUMIN 3.8 g/dL 03/30/2017 Comp Metabolic Loh446 TPRO 6.2 g/dL 03/30/2017 Comp Metabolic Vks114 GLOB 2.4 g/dL 03/30/2017 Comp Metabolic Vkz570 A/G Ratio 1.6 Ratio 03/30/2017 Comp Metabolic Hte092 Osmo 282 mOsmo 03/30/2017 Uric Acid Ord77 [...] 6.1 % 03/23/2017 Cbc With Differential Ord2 Conway% 10.7 % 03/23/2017 Cbc With Differential Ord2 MCH 32.0 pg 03/23/2017 Cbc With Differential Ord2 MCHC 34.0 pg 03/23/2017 Cbc With Differential Ord2 Eos% 2.0 % 03/23/2017 Cbc With Differential Ord2 Baso% 0.2 % 03/23/2017 Cbc With Differential Ord2 PLT 177 K/ul 03/23/2017 Cbc With Differential Ord2 Neut ABS# 4.15 K/ul 03/23/2017 Cbc With Differential Ord2 RDW 13.8 % 03/23/2017 Cbc With Differential Ord2 Lymph ABS# 0.31 K/ul 03/23/2017 Cbc With Differential Ord2 [place] ABS# 0.6 K/ul 03/23/2017 Cbc With Differential Ord2 Eos ABS# 0.1 K/ul 03/23/2017 Cbc With Differential Ord2 Baso ABS# 0.0 K/ul 03/23/2017 Magnesium Ord90 Mag 2.0 mg/dL 03/23/2017 Comp Metabolic Tqi940 NA 140 mEq/L 03/23/2017 Comp Metabolic Ija888 K 4.4 mEq/L 03/23/2017 Comp Metabolic Lio541 CL 105 mEq/L 03/23/2017 Comp Metabolic Mlb055 CO2 30.0 mEq/L 03/23/2017 Comp Metabolic Key867 ANION GAP 9 03/23/2017 Comp Metabolic Gyt718 GLUCOSE 75 mg/dL 03/23/2017 Comp Metabolic Nfx563 Creat 0.9 mg/dL 03/23/2017 Comp Metabolic Sms880 eGFR 87 ml/min/1.73m2 03/23/2017 Comp Metabolic Uuv720 BUN 17 mg/dL 03/23/2017 Comp Metabolic Pka991 B/C Ratio 18.7 Ratio 03/23/2017 Comp Metabolic Kqg272 CALCIUM 9.0 mg/dL 03/23/2017 Comp Metabolic Mci415 ALK PHOS 91 U/L 03/23/2017 Comp Metabolic Vhq290 AST(SGOT) 27 U/L 03/23/2017 Comp Metabolic Ylo333 ALT(SGPT) 30 U/L 03/23/2017 Comp Metabolic Jwo900 BILI T 0.4 mg/dL 03/23/2017 Comp Metabolic Vsr546 ALBUMIN 3.8 g/dL 03/23/2017 Comp Metabolic Lzj089 TPRO 6.1 g/dL 03/23/2017 Comp Metabolic Bnt130 GLOB 2.3 g/dL 03/23/2017 Comp Metabolic Qmt500 A/G Ratio 1.7 Ratio 03/23/2017 Comp Metabolic Xgo930 Osmo 280 mOsmo 03/23/2017 Uric Acid Ord77 Uric A 5.0 mg/dL 03/23/2017 Magnesium Ord90 Mag 2.1 mg/dL 03/06/2017 Uric Acid Ord77 Uric A 4.4 mg/dL 03/06/2017 Cbc With Differential Ord2 WBC 4.28 K/ul 03/06/2017 Cbc With Differential Ord2 RBC 4.63 M/ul 03/06/2017 Cbc With Differential Ord2 HGB 14.7 g/dl 03/06/2017 Cbc With Differential Ord2 Neut% 77.7 % 03/06/2017 Cbc With Differential Ord2 HCT 43.5 % 03/06/2017 Cbc With Differential Ord2 Lymph% 7.7 % 03/06/2017 Cbc With Differential Ord2 MCV 94.0 fl 03/06/2017 Cbc With Differential Ord2 [place]% 11.4 % 03/06/2017 Cbc With Differential Ord2 MCH 31.7 pg 03/06/2017 Cbc With Differential Ord2 MCHC 33.8 pg 03/06/2017 Cbc With Differential Ord2 Eos% 3.0 % 03/06/2017 Cbc With Differential Ord2 Baso% 0.2 % 03/06/2017 Cbc With Differential Ord2 PLT 164 K/ul 03/06/2017 Cbc With Differential Ord2 RDW 14.0 % 03/06/2017 Cbc With Differential Ord2 Neut ABS# 3.32 K/ul 03/06/2017 Cbc With Differential Ord2 Lymph ABS# 0.33 K/ul 03/06/2017 Cbc With Differential Ord2 [place] ABS# 0.5 K/ul 03/06/2017 Cbc With Differential Ord2 Eos ABS# 0.1 K/ul 03/06/2017 Cbc With Differential Ord2 Baso ABS# 0.0 K/ul 03/06/2017 Comp Metabolic Ghr162 NA 143 mEq/L 03/06/2017 Comp Metabolic Gam009 K 4.1 mEq/L 03/06/2017 Comp Metabolic Jcn735 CL 107 mEq/L 03/06/2017 Comp Metabolic Ice548 CO2 29.0 mEq/L 03/06/2017 Comp Metabolic Kel279 ANION GAP 11 03/06/2017 Comp Metabolic Ycq653 GLUCOSE 129 mg/dL 03/06/2017 Comp Metabolic Uhe241 Creat 0.9 mg/dL 03/06/2017 Comp Metabolic Uub455 eGFR 88 ml/min/1.73m2 03/06/2017 Comp Metabolic Flp497 BUN 15 mg/dL 03/06/2017 Comp Metabolic Lmz355 B/C Ratio 16.7 Ratio 03/06/2017 Comp Metabolic Dkc058 CALCIUM 8.7 mg/dL 03/06/2017 Comp Metabolic Vte897 ALK PHOS 99 U/L 03/06/2017 Comp Metabolic Ivq077 AST(SGOT) 29 U/L 03/06/2017 Comp Metabolic Vmm815 ALT(SGPT) 30 U/L 03/06/2017 Comp Metabolic Wqq556 BILI T 0.4 mg/dL 03/06/2017 Comp Metabolic Bly101 ALBUMIN 3.8 g/dL 03/06/2017 Comp Metabolic Znt876 TPRO 5.9 g/dL 03/06/2017 Comp Metabolic Gxm390 GLOB 2.1 g/dL 03/06/2017 Comp Metabolic Mhv418 A/G Ratio 1.9 Ratio 03/06/2017 Comp Metabolic Qxw025 Osmo 288 mOsmo 03/06/2017 Magnesium Ord90 Mag 2.2 mg/dL 02/27/2017 Comp Metabolic Epv008 NA 141 mEq/L 02/27/2017 Comp Metabolic Wtp825 K 4.5 mEq/L 02/27/2017 Comp Metabolic Lci128 CL 105 mEq/L 02/27/2017 Comp Metabolic Qji955 CO2 30.0 mEq/L 02/27/2017 Comp Metabolic Ppz559 ANION GAP 11 02/27/2017 Comp Metabolic Pln284 GLUCOSE 73 mg/dL 02/27/2017 Comp Metabolic Kgg568 Creat 0.9 mg/dL 02/27/2017 Comp Metabolic Auc278 eGFR 87 ml/min/1.73m2 02/27/2017 Comp Metabolic Mfy747 BUN 17 mg/dL 02/27/2017 Comp Metabolic Dmw148 B/C Ratio 18.7 Ratio 02/27/2017 Comp Metabolic Ark542 CALCIUM 8.8 mg/dL 02/27/2017 Comp Metabolic Shm212 ALK PHOS 93 U/L 02/27/2017 Comp Metabolic Fmc894 AST(SGOT) 31 U/L 02/27/2017 Comp Metabolic Yaw181 ALT(SGPT) 35 U/L 02/27/2017 Comp Metabolic Vis658 BILI T 0.4 mg/dL 02/27/2017 Comp Metabolic Yuv915 ALBUMIN 3.9 g/dL 02/27/2017 Comp Metabolic Psg500 TPRO 5.9 g/dL 02/27/2017 Comp Metabolic Mdq579 GLOB 2.0 g/dL 02/27/2017 Comp Metabolic Mjz809 A/G Ratio 2.0 Ratio 02/27/2017 Comp Metabolic Lwi352 Osmo 281 mOsmo 02/27/2017 Uric Acid Ord77 Uric A 5.5 mg/dL 02/27/2017 Cbc With Differential Ord2 WBC 6.05 K/ul 02/27/2017 Cbc With Differential Ord2 RBC 4.58 M/ul 02/27/2017 Cbc With Differential Ord2 HGB 14.7 g/dl 02/27/2017 Cbc With Differential Ord2 HCT 43.1 % 02/27/2017 Cbc With Differential Ord2 Neut% 81.9 % 02/27/2017 Cbc With Differential Ord2 Lymph% 5.3 % 02/27/2017 Cbc With Differential Ord2 MCV 94.1 fl 02/27/2017 Cbc With Differential Ord2 Conway% 10.1 % 02/27/2017 Cbc With Differential Ord2 MCH 32.1 pg 02/27/2017 Cbc With Differential Ord2 MCHC 34.1 pg 02/27/2017 Cbc With Differential Ord2 Eos% 2.0 % 02/27/2017 Cbc With Differential Ord2 PLT 190 K/ul 02/27/2017 Cbc With Differential Ord2 Baso% 0.7 % 02/27/2017 Cbc With Differential Ord2 RDW 13.9 % 02/27/2017 Cbc With Differential Ord2 Neut ABS# 4.96 K/ul 02/27/2017 Cbc With Differential Ord2 Lymph ABS# 0.32 K/ul 02/27/2017 Cbc With Differential Ord2 [place] ABS# 0.6 K/ul 02/27/2017 Cbc With Differential Ord2 Eos ABS# 0.1 K/ul 02/27/2017 Cbc With Differential Ord2 Baso ABS# 0.0 K/ul 02/27/2017 Magnesium Ord90 Mag 2.2 mg/dL 02/21/2017 Cbc With Differential Ord2 WBC 5.58 K/ul 02/21/2017 Cbc With Differential Ord2 RBC 4.78 M/ul 02/21/2017 Cbc With Differential Ord2 HGB 15.3 g/dl 02/21/2017 Cbc With Differential Ord2 Neut% 82.7 % 02/21/2017 Cbc With Differential Ord2 HCT 44.6 % 02/21/2017 Cbc With Differential Ord2 MCV 93.3 fl 02/21/2017 Cbc With Differential Ord2 Lymph% 5.6 % 02/21/2017 Cbc With Differential Ord2 Conway% 9.0 % 02/21/2017 Cbc With Differential Ord2 MCH 32.0 pg 02/21/2017 Cbc With Differential Ord2 MCHC 34.3 pg 02/21/2017 Cbc With Differential Ord2 Eos% 2.5 % 02/21/2017 Cbc With Differential Ord2 PLT 191 K/ul 02/21/2017 Cbc With Differential Ord2 Baso% 0.2 % 02/21/2017 Cbc With Differential Ord2 RDW 14.1 % 02/21/2017 Cbc With Differential Ord2 Neut ABS# 4.62 K/ul 02/21/2017 Cbc With Differential Ord2 Lymph ABS# 0.31 K/ul 02/21/2017 Cbc With Differential Ord2 [place] ABS# 0.5 K/ul 02/21/2017 Cbc With Differential Ord2 Eos ABS# 0.1 K/ul 02/21/2017 Cbc With Differential Ord2 Baso ABS# 0.0 K/ul 02/21/2017 Uric Acid Ord77 Uric A 5.0 mg/dL 02/21/2017 Comp Metabolic Pjg426 NA 134 mEq/L 02/21/2017 Comp Metabolic Iec830 K 4.3 mEq/L 02/21/2017 Comp Metabolic Wlb362 CL 100 mEq/L 02/21/2017 Comp Metabolic Bqh749 CO2 28.0 mEq/L 02/21/2017 Comp Metabolic Ldy491 ANION GAP 10 02/21/2017 Comp Metabolic Ygz208 GLUCOSE 130 mg/dL 02/21/2017 Comp Metabolic Gxh859 Creat 1.0 mg/dL 02/21/2017 Comp Metabolic Hbg977 eGFR 77 ml/min/1.73m2 02/21/2017 Comp Metabolic Mge940 BUN 17 mg/dL 02/21/2017 Comp Metabolic Uyk905 B/C Ratio 16.8 Ratio 02/21/2017 Comp Metabolic Itf145 CALCIUM 9.1 mg/dL 02/21/2017 Comp Metabolic Mnq732 ALK PHOS 92 U/L 02/21/2017 Comp Metabolic Hmh208 AST(SGOT) 23 U/L 02/21/2017 Comp Metabolic Uxf672 ALT(SGPT) 29 U/L 02/21/2017 Comp Metabolic Qqh259 BILI T 0.3 mg/dL 02/21/2017 Comp Metabolic Yqm042 ALBUMIN 3.9 g/dL 02/21/2017 Comp Metabolic Hro439 TPRO 6.1 g/dL 02/21/2017 Comp Metabolic Vjw243 GLOB 2.2 g/dL 02/21/2017 Comp Metabolic Gmz870 A/G Ratio 1.8 Ratio 02/21/2017 Comp Metabolic Vmr248 Osmo 272 mOsmo 02/21/2017 Uric Acid Ord77 Uric A 4.2 mg/dL 02/07/2017 Comp Metabolic Eof484 NA 139 mEq/L 02/07/2017 Comp Metabolic Dfm902 K 4.6 mEq/L 02/07/2017 Comp Metabolic Ljc392 CL 106 mEq/L 02/07/2017 Comp Metabolic Vtw636 CO2 29.0 mEq/L 02/07/2017 Comp Metabolic Zxw286 ANION GAP 9 02/07/2017 Comp Metabolic Rvd957 GLUCOSE 99 mg/dL 02/07/2017 Comp Metabolic Dap867 Creat 0.9 mg/dL 02/07/2017 Comp Metabolic Mmi868 eGFR 92 ml/min/1.73m2 02/07/2017 Comp Metabolic Nnt840 BUN 19 mg/dL 02/07/2017 Comp Metabolic Jkp286 B/C Ratio 21.8 Ratio 02/07/2017 Comp Metabolic Uar037 CALCIUM 8.8 mg/dL 02/07/2017 Comp Metabolic Lkj142 ALK PHOS 81 U/L 02/07/2017 Comp Metabolic Bqy204 AST(SGOT) 22 U/L 02/07/2017 Comp Metabolic Ytc032 ALT(SGPT) 24 U/L 02/07/2017 Comp Metabolic Zko635 BILI T 0.3 mg/dL 02/07/2017 Comp Metabolic Fgo663 ALBUMIN 3.9 g/dL 02/07/2017 Comp Metabolic Ehz480 TPRO 5.8 g/dL 02/07/2017 Comp Metabolic Ivi217 GLOB 1.9 g/dL 02/07/2017 Comp Metabolic Tvc367 A/G Ratio 2.0 Ratio 02/07/2017 Comp Metabolic Zew957 Osmo 280 mOsmo 02/07/2017 Cbc With Differential Ord2 WBC 4.24 K/ul 02/07/2017 Cbc With Differential Ord2 RBC 4.67 M/ul 02/07/2017 Cbc With Differential Ord2 HGB 14.9 g/dl 02/07/2017 Cbc With Differential Ord2 Neut% 73.8 % 02/07/2017 Cbc With Differential Ord2 HCT 43.6 % 02/07/2017 Cbc With Differential Ord2 MCV 93.4 fl 02/07/2017 Cbc With Differential Ord2 Lymph% 10.4 % 02/07/2017 Cbc With Differential Ord2 Conway% 12.0 % 02/07/2017 Cbc With Differential Ord2 MCH 31.9 pg 02/07/2017 Cbc With Differential Ord2 MCHC 34.2 pg 02/07/2017 Cbc With Differential Ord2 Eos% 3.1 % 02/07/2017 Cbc With Differential Ord2 PLT 184 K/ul 02/07/2017 Cbc With Differential Ord2 Baso% 0.7 % 02/07/2017 Cbc With Differential Ord2 Neut ABS# 3.13 K/ul 02/07/2017 Cbc With Differential Ord2 RDW 14.2 % 02/07/2017 Cbc With Differential Ord2 Lymph ABS# 0.44 K/ul 02/07/2017 Cbc With Differential Ord2 [place] ABS# 0.5 K/ul 02/07/2017 Cbc With Differential Ord2 Eos ABS# 0.1 K/ul 02/07/2017 Cbc With Differential Ord2 Baso ABS# 0.0 K/ul 02/07/2017 Magnesium Ord90 Mag 2.1 mg/dL 02/07/2017 Comp Metabolic Bey739 NA 142 mEq/L 01/31/2017 Comp Metabolic Pup848 K 4.7 mEq/L 01/31/2017 Comp Metabolic Rzq496 CL 106 mEq/L 01/31/2017 Comp Metabolic Gnc522 CO2 32.0 mEq/L 01/31/2017 Comp Metabolic Cyq040 ANION GAP 9 01/31/2017 Comp Metabolic Xmh241 GLUCOSE 93 mg/dL 01/31/2017 Comp Metabolic Pkl931 Creat 1.0 mg/dL 01/31/2017 Comp Metabolic Xhv728 eGFR 83 ml/min/1.73m2 01/31/2017 Comp Metabolic Qvh193 BUN 20 mg/dL 01/31/2017 Comp Metabolic Tez879 B/C Ratio 21.1 Ratio 01/31/2017 Comp Metabolic Gzh481 CALCIUM 9.1 mg/dL 01/31/2017 Comp Metabolic Ybh877 ALK PHOS 80 U/L 01/31/2017 Comp Metabolic Exn811 AST(SGOT) 22 U/L 01/31/2017 Comp Metabolic Olf405 ALT(SGPT) 24 U/L 01/31/2017 Comp Metabolic Oop414 BILI T 0.4 mg/dL 01/31/2017 Comp Metabolic Ugv735 ALBUMIN 4.0 g/dL 01/31/2017 Comp Metabolic Shl247 TPRO 6.0 g/dL 01/31/2017 Comp Metabolic Odw222 GLOB 2.1 g/dL 01/31/2017 Comp Metabolic Xxp821 A/G Ratio 1.9 Ratio 01/31/2017 Comp Metabolic Uwh514 Osmo 285 mOsmo 01/31/2017 Uric Acid Ord77 Uric A 4.9 mg/dL 01/31/2017 Cbc With Differential Ord2 WBC 7.12 K/ul 01/31/2017 Cbc With Differential Ord2 RBC 4.64 M/ul 01/31/2017 Cbc With Differential Ord2 HGB 14.8 g/dl 01/31/2017 Cbc With Differential Ord2 HCT 43.8 % 01/31/2017 Cbc With Differential Ord2 Neut% 85.0 % 01/31/2017 Cbc With Differential Ord2 MCV 94.4 fl 01/31/2017 Cbc With Differential Ord2 Lymph% 5.3 % 01/31/2017 Cbc With Differential Ord2 Conway% 7.9 % 01/31/2017 Cbc With Differential Ord2 MCH 31.9 pg 01/31/2017 Cbc With Differential Ord2 Eos% 1.7 % 01/31/2017 Cbc With Differential Ord2 MCHC 33.8 pg 01/31/2017 Cbc With Differential Ord2 PLT 173 K/ul 01/31/2017 Cbc With Differential Ord2 Baso% 0.1 % 01/31/2017 Cbc With Differential Ord2 RDW 14.5 % 01/31/2017 Cbc With Differential Ord2 Neut ABS# 6.05 K/ul 01/31/2017 Cbc With Differential Ord2 Lymph ABS# 0.38 K/ul 01/31/2017 Cbc With Differential Ord2 Conway ABS# 0.6 K/ul 01/31/2017 Cbc With Differential Ord2 Eos ABS# 0.1 K/ul 01/31/2017 Cbc With Differential Ord2 Baso ABS# 0.0 K/ul 01/31/2017 Magnesium Ord90 Mag 2.1 mg/dL 01/31/2017 Magnesium Ord90 Mag 2.0 mg/dL 01/23/2017 Cbc With Differential Ord2 WBC 5.85 K/ul 01/23/2017 Cbc With Differential Ord2 RBC 4.39 M/ul 01/23/2017 Cbc With Differential Ord2 HGB 14.1 g/dl 01/23/2017 Cbc With Differential Ord2 Neut% 82.2 % 01/23/2017 Cbc With Differential Ord2 HCT 41.5 % 01/23/2017 Cbc With Differential Ord2 MCV 94.5 fl 01/23/2017 Cbc With Differential Ord2 Lymph% 7.2 % 01/23/2017 Cbc With Differential Ord2 MCH 32.1 pg 01/23/2017 Cbc With Differential Ord2 Conway% 8.9 % 01/23/2017 Cbc With Differential Ord2 [...] 0.42 K/ul 01/23/2017 Cbc With Differential Ord2 [place] ABS# 0.5 K/ul 01/23/2017 Cbc With Differential Ord2 Eos ABS# 0.1 K/ul 01/23/2017 Cbc With Differential Ord2 Baso ABS# 0.0 K/ul 01/23/2017 Uric Acid Ord77 Uric A 5.4 mg/dL 01/23/2017 Comp Metabolic Ujg039 NA 141 mEq/L 01/23/2017 Comp Metabolic Qcu047 K 4.4 mEq/L 01/23/2017 Comp Metabolic Jwq626 CL 104 mEq/L 01/23/2017 Comp Metabolic Krq242 CO2 31.0 mEq/L 01/23/2017 Comp Metabolic Uam636 ANION GAP 10 01/23/2017 Comp Metabolic Ycm810 GLUCOSE 109 mg/dL 01/23/2017 Comp Metabolic Bjy848 Creat 1.1 mg/dL 01/23/2017 Comp Metabolic Uln467 eGFR 71 ml/min/1.73m2 01/23/2017 Comp Metabolic Dys760 BUN 22 mg/dL 01/23/2017 Comp Metabolic Vdw275 B/C Ratio 20.4 Ratio 01/23/2017 Comp Metabolic Tip477 CALCIUM 9.1 mg/dL 01/23/2017 Comp Metabolic Led618 ALK PHOS 76 U/L 01/23/2017 Comp Metabolic Esf461 AST(SGOT) 22 U/L 01/23/2017 Comp Metabolic Eum661 ALT(SGPT) 22 U/L 01/23/2017 Comp Metabolic Yxt851 BILI T 0.4 mg/dL 01/23/2017 Comp Metabolic Igi764 ALBUMIN 3.8 g/dL 01/23/2017 Comp Metabolic Sku230 TPRO 5.9 g/dL 01/23/2017 Comp Metabolic Nak909 GLOB 2.1 g/dL 01/23/2017 Comp Metabolic Bua922 A/G Ratio 1.8 Ratio 01/23/2017 Comp Metabolic Gyg154 Osmo 285 mOsmo 01/23/2017 Testosterone Gcw794 Testo 321.3 ng/dL 01/10/2017 Comp Metabolic Vga181 NA 141 mEq/L 01/10/2017 Comp Metabolic Lfq233 K 4.8 mEq/L 01/10/2017 Comp Metabolic Sot201 CL 106 mEq/L 01/10/2017 Comp Metabolic Uzo359 CO2 29.0 mEq/L 01/10/2017 Comp Metabolic Yjh916 ANION GAP 11 01/10/2017 Comp Metabolic Ffm435 GLUCOSE 73 mg/dL 01/10/2017 Comp Metabolic Obf700 Creat 0.9 mg/dL 01/10/2017 Comp Metabolic Uck595 eGFR 93 ml/min/1.73m2 01/10/2017 Comp Metabolic Gkn430 BUN 19 mg/dL 01/10/2017 Comp Metabolic Djv225 B/C Ratio 22.1 Ratio 01/10/2017 Comp Metabolic Puy839 CALCIUM 9.0 mg/dL 01/10/2017 Comp Metabolic Jwk532 ALK PHOS 80 U/L 01/10/2017 Comp Metabolic Dzd703 AST(SGOT) 24 U/L 01/10/2017 Comp Metabolic Bpl812 ALT(SGPT) 28 U/L 01/10/2017 Comp Metabolic Usq108 BILI T 0.4 mg/dL 01/10/2017 Comp Metabolic Jor387 ALBUMIN 3.8 g/dL 01/10/2017 Comp Metabolic Hsb928 TPRO 5.9 g/dL 01/10/2017 Comp Metabolic Iqn129 GLOB 2.1 g/dL 01/10/2017 Comp Metabolic Sqa533 A/G Ratio 1.9 Ratio 01/10/2017 Comp Metabolic Idg688 Osmo 282 mOsmo 01/10/2017 Cbc With Differential [...] 31.9 pg 01/10/2017 Cbc With Differential Ord2 Conway% 9.6 % 01/10/2017 Cbc With Differential Ord2 MCHC 33.7 pg 01/10/2017 Cbc With Differential Ord2 Eos% 1.9 % 01/10/2017 Cbc With Differential Ord2 Baso% 0.3 % 01/10/2017 Cbc With Differential Ord2 PLT 201 K/ul 01/10/2017 Cbc With Differential Ord2 RDW 14.6 % 01/10/2017 Cbc With Differential Ord2 Neut ABS# 5.05 K/ul 01/10/2017 Cbc With Differential Ord2 Lymph ABS# 0.62 K/ul 01/10/2017 Cbc With Differential Ord2 Conway ABS# 0.6 K/ul 01/10/2017 Cbc With Differential Ord2 Eos ABS# 0.1 K/ul 01/10/2017 Cbc With Differential Ord2 Baso ABS# 0.0 K/ul 01/10/2017 Cbc With Differential Ord2 WBC 6.19 K/ul 01/03/2017 Cbc With Differential Ord2 RBC 4.47 M/ul 01/03/2017 Cbc With Differential Ord2 HGB 14.2 g/dl 01/03/2017 Cbc With Differential Ord2 Neut% 82.2 % 01/03/2017 Cbc With Differential Ord2 HCT 41.9 % 01/03/2017 Cbc With Differential Ord2 MCV 93.7 fl 01/03/2017 Cbc With Differential Ord2 Lymph% 6.8 % 01/03/2017 Cbc With Differential Ord2 MCH 31.8 pg 01/03/2017 Cbc With Differential Ord2 Conway% 8.6 % 01/03/2017 Cbc With Differential Ord2 MCHC 33.9 pg 01/03/2017 Cbc With Differential Ord2 Eos% 1.9 % 01/03/2017 Cbc With Differential Ord2 Baso% 0.5 % 01/03/2017 Cbc With Differential Ord2 PLT 172 K/ul 01/03/2017 Cbc With Differential Ord2 RDW 14.3 % 01/03/2017 Cbc With Differential Ord2 Neut ABS# 5.09 K/ul 01/03/2017 Cbc With Differential Ord2 Lymph ABS# 0.42 K/ul 01/03/2017 Cbc With Differential Ord2 [place] ABS# 0.5 K/ul 01/03/2017 Cbc With Differential Ord2 Eos ABS# 0.1 K/ul 01/03/2017 Cbc With Differential Ord2 Baso ABS# 0.0 K/ul 01/03/2017 Comp Metabolic Gww045 NA 140 mEq/L 01/03/2017 Comp Metabolic Ufr575 K 4.7 mEq/L 01/03/2017 Comp Metabolic Leb972 CL 106 mEq/L 01/03/2017 Comp Metabolic Aiq847 CO2 28.0 mEq/L 01/03/2017 Comp Metabolic Pxs894 ANION GAP 11 01/03/2017 Comp Metabolic Dkt934 GLUCOSE 126 mg/dL 01/03/2017 Comp Metabolic Gzh015 Creat 0.9 mg/dL 01/03/2017 Comp Metabolic Iyr207 eGFR 88 ml/min/1.73m2 01/03/2017 Comp Metabolic Yud363 BUN 23 mg/dL 01/03/2017 Comp Metabolic Nlm098 B/C Ratio 25.6 Ratio 01/03/2017 Comp Metabolic Agv449 CALCIUM 8.8 mg/dL 01/03/2017 Comp Metabolic Zsx397 ALK PHOS 73 U/L 01/03/2017 Comp Metabolic Bdo292 AST(SGOT) 25 U/L 01/03/2017 Comp Metabolic Wbc007 ALT(SGPT) 30 U/L 01/03/2017 Comp Metabolic Pdl059 BILI T 0.4 mg/dL 01/03/2017 Comp Metabolic Gcf537 ALBUMIN 3.9 g/dL 01/03/2017 Comp Metabolic Vzq565 TPRO 5.9 g/dL 01/03/2017 Comp Metabolic Dbn283 GLOB 2.1 g/dL 01/03/2017 Comp Metabolic Ery768 A/G Ratio 1.9 Ratio 01/03/2017 Comp Metabolic Sel058 Osmo 285 mOsmo 01/03/2017 Cbc With Differential [...] 94.4 fl 12/12/2016 Cbc With Differential Ord2 Conway% 8.9 % 12/12/2016 Cbc With Differential Ord2 MCH 31.7 pg 12/12/2016 Cbc With Differential Ord2 MCHC 33.6 pg 12/12/2016 Cbc With Differential Ord2 Eos% 1.7 % 12/12/2016 Cbc With Differential Ord2 PLT 186 K/ul 12/12/2016 Cbc With Differential Ord2 Baso% 0.8 % 12/12/2016 Cbc With Differential Ord2 RDW 14.6 % 12/12/2016 Cbc With Differential Ord2 Neut ABS# 4.50 K/ul 12/12/2016 Cbc With Differential Ord2 Lymph ABS# 0.80 K/ul 12/12/2016 Cbc With Differential Ord2 [place] ABS# 0.5 K/ul 12/12/2016 Cbc With Differential Ord2 Eos ABS# 0.1 K/ul 12/12/2016 Cbc With Differential Ord2 Baso ABS# 0.1 K/ul 12/12/2016 Comp Metabolic Ddj077 NA 140 mEq/L 12/12/2016 Comp Metabolic Vtg391 K 3.8 mEq/L 12/12/2016 Comp Metabolic Tbd067 CL 105 mEq/L 12/12/2016 Comp Metabolic Vnw757 CO2 26.0 mEq/L 12/12/2016 Comp Metabolic Rfu852 ANION GAP 13 12/12/2016 Comp Metabolic Jnk533 GLUCOSE 112 mg/dL 12/12/2016 Comp Metabolic Uht835 Creat 0.9 mg/dL 12/12/2016 Comp Metabolic Kph054 eGFR 89 ml/min/1.73m2 12/12/2016 Comp Metabolic Gmb486 BUN 16 mg/dL 12/12/2016 Comp Metabolic Evj237 B/C Ratio 18.0 Ratio 12/12/2016 Comp Metabolic Nqd180 CALCIUM 8.6 mg/dL 12/12/2016 Comp Metabolic Uli069 ALK PHOS 80 U/L 12/12/2016 Comp Metabolic Jzj319 AST(SGOT) 21 U/L 12/12/2016 Comp Metabolic Ied869 ALT(SGPT) 23 U/L 12/12/2016 Comp Metabolic Ndw595 BILI T 0.4 mg/dL 12/12/2016 Comp Metabolic Pos193 ALBUMIN 3.7 g/dL 12/12/2016 Comp Metabolic Who750 TPRO 5.6 g/dL 12/12/2016 Comp Metabolic Oic327 GLOB 1.9 g/dL 12/12/2016 Comp Metabolic Fyt291 A/G Ratio 2.0 Ratio 12/12/2016 Comp Metabolic Tht688 Osmo 281 mOsmo 12/12/2016 Comp Metabolic Tps901 NA 140 mEq/L 12/05/2016 Comp Metabolic Ppc726 K 4.6 mEq/L 12/05/2016 Comp Metabolic Izc486 CL 104 mEq/L 12/05/2016 Comp Metabolic Wfh142 CO2 29.0 mEq/L 12/05/2016 Comp Metabolic Qkn746 ANION GAP 12 12/05/2016 Comp Metabolic Usx371 GLUCOSE 93 mg/dL 12/05/2016 Comp Metabolic Cfk105 Creat 0.8 mg/dL 12/05/2016 Comp Metabolic Uyd558 eGFR 98 ml/min/1.73m2 12/05/2016 Comp Metabolic Rpr098 BUN 20 mg/dL 12/05/2016 Comp Metabolic Hgk210 B/C Ratio 24.4 Ratio 12/05/2016 Comp Metabolic Txp688 CALCIUM 8.8 mg/dL 12/05/2016 Comp Metabolic Yox590 ALK PHOS 82 U/L 12/05/2016 Comp Metabolic Fso819 AST(SGOT) 24 U/L 12/05/2016 Comp Metabolic Dpi239 ALT(SGPT) 28 U/L 12/05/2016 Comp Metabolic Cet598 BILI T 0.4 mg/dL 12/05/2016 Comp Metabolic Myu518 ALBUMIN 3.9 g/dL 12/05/2016 Comp Metabolic Wsi251 TPRO 5.9 g/dL 12/05/2016 Comp Metabolic Xxc934 GLOB 2.0 g/dL 12/05/2016 Comp Metabolic Oqg175 A/G Ratio 2.0 Ratio 12/05/2016 Comp Metabolic Nrm627 Osmo 282 mOsmo 12/05/2016 Cbc With Differential Ord2 WBC 7.85 K/ul 12/05/2016 Cbc With Differential Ord2 RBC 4.66 M/ul 12/05/2016 Cbc With Differential Ord2 HGB 14.6 g/dl 12/05/2016 Cbc With Differential Ord2 HCT 44.0 % 12/05/2016 Cbc With Differential Ord2 Neut% 73.6 % 12/05/2016 Cbc With Differential Ord2 Lymph% 14.8 % 12/05/2016 Cbc With Differential Ord2 MCV 94.4 fl 12/05/2016 Cbc With Differential Ord2 MCH 31.3 pg 12/05/2016 Cbc With Differential Ord2 Conway% 8.8 % 12/05/2016 Cbc With Differential Ord2 [...] 1.16 K/ul 12/05/2016 Cbc With Differential Ord2 [place] ABS# 0.7 K/ul 12/05/2016 Cbc With Differential Ord2 Eos ABS# 0.2 K/ul 12/05/2016 Cbc With Differential Ord2 Baso ABS# 0.0 K/ul 12/05/2016 Review of Systems System Result Effective Dates Eyes No eye pain 02/01/2018 Eyes No [...] No Procedures data Vital Signs Date Vital 02/01/2018 Blood Pressure 1: 144/76 Code : 8480-6 BMI: 30.0 Code : 61793-5 Heart Rate 1 : 66 bpm Height: 6' SpO2: 99% Weight: 221 lbs 01/02/2018 Blood Pressure 1: 130/76 Code : 8480-6 BMI: 29.4 Code : 28338-8 Heart Rate 1 : 90 bpm Height: 6' SpO2: 99% Weight: 217 lbs 12/21/2017 Blood Pressure 1: 142/80 Code : 8480-6 BMI: 29.7 Code : 22305-1 Heart Rate 1 : 74 bpm Height: 6' SpO2: 96% Weight: 219 lbs 11/22/2017 Blood Pressure 1: 130/72 Code : 8480-6 BMI: 29.8 Code : 27567-0 Heart Rate 1 : 53 bpm Height: 6' SpO2: 97% Weight: 220 lbs 07/19/2017 Blood Pressure 1: 142/80 Code : 8480-6 BMI: 30.1 Code : 91736-6 Heart Rate 1 : 60 bpm Height: 6' SpO2: 99% Weight: 222 lbs 06/05/2017 Blood Pressure 1: 136/74 Code : 8480-6 BMI: 30.2 Code : 01860-2 Heart Rate 1 : 59 bpm Height: 6' SpO2: 98% Weight: 223 lbs 05/03/2017 Blood Pressure 1: 128/80 Code : 8480-6 BMI: 30.2 Code : 05789-7 Heart Rate 1 : 79 bpm Height: 6' SpO2: 98% Weight: 223 lbs 02/27/2017 Blood Pressure 1: 126/66 Code : 8480-6 BMI: 30.2 Code : 38477-6 Heart Rate 1 : 61 bpm Height: 6' SpO2: 99% Weight: 223 lbs 01/10/2017 Blood Pressure 1: 136/70 Code : 8480-6 BMI: 30.0 Code : 68950-9 Heart Rate 1 : 62 bpm Height: 6' SpO2: 98% Weight: 221 lbs 8 oz 12/05/2016 Blood Pressure 1: 138/74 Code : 8480-6 BMI: 29.3 Code : 22143-9 Heart Rate 1 : 62 bpm Height: 6' SpO2: 98% Weight: 216 lbs Functional Status No Functional Status data History of Present Illness Symptom Name Status Result Effective Date Notes memory loss Quality acute 02/01/2018 None memory [...] data Encounters Encounter Performer Location Codes Date ([id number]) [id number] EST. PATIENT, LEVEL IV Diagnosis: Generalized anxiety disorder[ICD10: F41.1] Diagnosis: Major depressive disorder, single episode, moderate[ICD10: F32.1] Diagnosis: Adjustment insomnia[ICD10: F51.02] Nalini Salomon MD, [facility] CPT-4: 52108 02/01/2018 [id number] EST. PATIENT, LEVEL III Diagnosis: Generalized anxiety disorder[ICD10: F41.1] Diagnosis: Major depressive disorder, single episode, moderate[ICD10: F32.1] Leonor Salomon MD, [facility] CPT-4: 27155 01/02/2018 [id number]) [id number] EST. PATIENT, LEVEL III Diagnosis: Concussion without loss of consciousness, initial encounter[ICD10: S06.0X0A] Diagnosis: Laceration without foreign body of other part of head, initial encounter[ICD10: S01.81XA] Harriet Salomon MD, [facility] CPT-4: 53443 12/21/2017 [id number]) 23487 EST. 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 PATIENT, LEVEL III Diagnosis: Rash and other nonspecific skin eruption[ICD10: R21] Diagnosis: Slow transit constipation[ICD10: K59.01] Harriet Salomon MD [facility] CPT-4: 10400 07/19/2017 ([id number]) 11273 EST. PATIENT, LEVEL III Diagnosis: Epigastric pain[ICD10: R10.13] Harriet Salomon MD [facility] CPT- 4: 16261 06/05/2017 ([id number]) 19664 EST. 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 PATIENT, LEVEL IV Diagnosis: Chronic lymphocytic leukemia of B-cell type not having achieved remission[ICD10: C91.10] Diagnosis: Periumbilical pain[ICD10: R10.33] Harriet Salomon MD, [facility] CPT-4: 50573 02/27/2017 ([id number]) 36823 EST. 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] Diagnosis: Umbilical hernia without obstruction or gangrene[ICD10: K42.9] [facility] CPT-4: 12361 01/10/2017 ([id number]) OFFICE VISIT, NEW - LEVEL 4 Diagnosis: Umbilical hernia without obstruction or gangrene[ICD10: K42.9] Diagnosis: Periumbilical pain[ICD10: R10.33] Diagnosis: Chronic lymphocytic leukemia of B-cell type not having achieved remission[ICD10: C91.10] Diagnosis: Slow transit constipation[ICD10: K59.01] [facility] CPT-4: 12822 12/05/2016 Plan of Care Planned Activity Notes Codes Status Date Visit Plan: Depression -anxiety- uncontrolled - Pt [...] time insomnia. 02/01/2018 Appointment: Nalini Lucas WPtel: [phone] [phone] (15 min) Moderate 02/01/2018 Patient Education: Patient [...] patient. 01/02/2018 [facility]ment[facility] [phone] [facility] [place] (15 min) Moderate 01/02/2018 Patient Education: Patient [...] at times. 12/21/2017 Appointment: Harriet Salomon [phone] (15 min) Moderate 12/21/2017 Patient Education: Patient [...] this time. 11/22/2017 Appointment: Harriet Salomon WPtel: [phone] (15 min) Moderate 11/22/2017 Patient Education: Patient Medication Summary Completed 11/22/2017 Visit Plan: CLL - pt has finished chemotherapy - continue with follow up with Dr. Austin. Umbilical hernia -pt is not interested in surgery right now. Constipation - continue with current regimen - add prune juice - keep appt for colonoscopy and EGD. 07/19/2017 Appointment: Harriet Salomon WPtel: [address] [place], [place] [id number] [place] (15 min) Moderate 07/19/2017 Patient Education: Patient Medication Summary Completed 07/19/2017 Visit Plan: Epigastric abdominal pain - pt advised to avoid dairy products - pt to start on start on the carafate and restart pepcid 06/05/2017 Appointment: Harriet Salomon WPtel: [address] [place], [place] [id number] [place] (15 min) Moderate 06/05/2017 Patient Education: [...] to surgery. 05/03/2017 Appointment: Har[facility] Salomon [facility]Ptel: [phone] [id number] (15 min) Moderate 05/03/2017 Patient Education: Patient Medication Summary Completed 05/03/2017 Visit Plan: CLL - continue with chemotherapy. Umbilical hernia - agree with plans for pt to have re-evaluation with surgeon after his chemotherapy is complete. 02/27/2017 Appointment: Harriet Salomon WPtel: [phone] [id number] (15 min) Moderate 02/27/2017 Patient Education: Patient [...] is completed. 01/10/2017 Appointment: Harriet Salomon WPtel: [phone] [id number] (15 min) Moderate 01/10/2017 Patient Education: Patient Medication Summary Completed 01/10/2017 Patient Education: Obesity Completed 01/10/2017 Care Plan: ASSAY OF TOTAL TESTOSTERONE LOINC : [id number] Pending 01/10/2017 Appointment: Harriet Salomon WPtel: [phone] [id number] (15 min) Moderate 01/02/2017 Visit Plan: Umbilical [...] this regimen. 12/05/2016 Appointment: Harriet Salomon WPtel: [id number] [facility] 12/05/2016 Patient Education: Patient Medication [...] 5pm. Daytime napping worsens night time insomnia. tonic water 4 ounces at bedtime - [...] carafate and restart pepcid please have the sleep tech look at the rough area below your [...]
--- OUTSIDE RECORDS SUMMARY | 2018-05-10 18:42 | XMS REPORT | CCD ---
Author Author [facility] Organization [facility] Address [address] [place] [address] Phone Care Team Providers Care Patient Manager Name Role Phone PP Unavailable CCM Unavailable Summary Purpose Interface Exchange Insurance Providers Payer name Policy type / Coverage type Covered democrat ID Effective Begin Date Effective End Date WPS Medicare Part B Medicare Part B [id number] 2017 Unknown AARP Medicare Part B [id number] Unknown Family history Father Diagnosis Age At Onset brain cancer Unknown Skin cancer Unknown Mother Diagnosis Age At Onset Cancer Unknown Daughter Diagnosis Age At Onset Celiac disease Unknown Social History Social History Element Codes Description Effective Dates Marital status Unknown Single 12/05/2016 Number of children Unknown 2 12/05/2016 Employment Unknown 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5 mg capsule RxNorm: 592679 1 Capsule(s) PO daily 01/09/2018 Inactive Lexapro 10 mg tablet RxNorm: 906923 1 Tablet(s) PO QHS 201701/31/2018 Inactive Voltaren 1 % topical gel RxNorm: 567305 4 Gram(s) TOP QID as needed 11/22/2017 No Stop Date Active Viagra 100 mg tablet RxNorm: 418583 1 Tablet(s) PO PRN sexual encounter 10/02/2017 No Stop Date Active promethazine 6.25 mg-codeine 10 mg/5 mL syrup RxNorm: 008560 5-10 Milliliter(s) PO Q6 as needed 10/02/2017 12/20/2017 Inactive Keflex 500 mg capsule RxNorm: 174211 1 Capsule(s) PO TID 201707/25/2017 Inactive Pepcid 20 mg tablet RxNorm: 844142 1 Tablet(s) PO BID 201707/18/2017 Inactive Carafate 1 gram tablet RxNorm: 036711 1 Tablet(s) PO QID 201707/04/2017 Inactive Pepcid 20 mg tablet RxNorm: 573393 1 Tablet(s) PO BID 201706/04/2017 Inactive mupirocin 2 % topical cream RxNorm: 947229 1 Application TOP BID 02/27/2017 03/08/2017 Inactive meclizine 25 mg tablet RxNorm: 232744 1 Tablet(s) PO TID as needed nausea 01/27/2017 03/27/2017 Inactive meclizine 25 mg tablet RxNorm: 221643 1 Tablet(s) PO TID as needed nausea 01/27/2017 01/26/2017 Inactive scopolamine 1 mg over 3 days transdermal patch RxNorm: 630887 1 TD Q72H 01/10/2017 02/26/2017 Inactive ibuprofen 200 mg tablet RxNorm: 730127 1 Tablet(s) PO No Start Date Active vitamin E (dl, acetate) oral RxNorm: oral No Start Date Active Viagra 100 mg tablet RxNorm: 716988 1 Tablet(s) PO PRN sexual encounter No Start Date 10/01/2017 Inactive promethazine 6.25 mg-codeine 10 mg/5 mL syrup RxNorm: 101084 5-10 Milliliter(s) PO Q6 as needed No [...] Item Item Code Result Date Comp Metabolic Nuz282 NA 139 mEq/L 12/18/2017 Comp Metabolic Byc671 K 4.6 mEq/L 12/18/2017 Comp Metabolic Uwu350 CL 105 mEq/L 12/18/2017 Comp Metabolic Fqf785 CO2 27.0 mEq/L 12/18/2017 Comp Metabolic Aam972 ANION GAP 12 12/18/2017 Comp Metabolic Jor853 GLUCOSE 126 mg/dL 12/18/2017 Comp Metabolic Cps093 Creat 0.9 mg/dL 12/18/2017 Comp Metabolic Uum939 eGFR 89 ml/min/1.73m2 12/18/2017 Comp Metabolic Gva821 BUN 19 mg/dL 12/18/2017 Comp Metabolic Ljs731 B/C Ratio 21.3 Ratio 12/18/2017 Comp Metabolic Rhf621 CALCIUM 8.8 mg/dL 12/18/2017 Comp Metabolic Qey592 ALK PHOS 99 U/L 12/18/2017 Comp Metabolic Ouw097 AST(SGOT) 31 U/L 12/18/2017 Comp Metabolic Upj242 ALT(SGPT) 46 U/L 12/18/2017 Comp Metabolic Txp721 BILI T 0.5 mg/dL 12/18/2017 Comp Metabolic Aua595 ALBUMIN 3.9 g/dL 12/18/2017 Comp Metabolic Nzd365 TPRO 5.8 g/dL 12/18/2017 Comp Metabolic Zef893 GLOB 2.0 g/dL 12/18/2017 Comp Metabolic Mdg183 A/G Ratio 2.0 Ratio 12/18/2017 Comp Metabolic Khm915 Osmo 281 mOsmo 12/18/2017 Magnesium Ord90 Mag [...] 32.3 pg 12/18/2017 Cbc With Differential Ord2 King% 6.8 % 12/18/2017 Cbc With Differential Ord2 [...] 0.53 K/ul 12/18/2017 Cbc With Differential Ord2 King ABS# 0.3 K/ul 12/18/2017 Cbc With Differential [...] 32.1 pg 09/22/2017 Cbc With Differential Ord2 King% 11.2 % 09/22/2017 Cbc With Differential Ord2 [...] 0.46 K/ul 09/22/2017 Cbc With Differential Ord2 King ABS# 0.4 K/ul 09/22/2017 Cbc With Differential Ord2 Eos ABS# 0.1 K/ul 09/22/2017 Cbc With Differential Ord2 Baso ABS# 0.0 K/ul 09/22/2017 Uric Acid Ord77 Uric A 5.5 mg/dL 09/22/2017 Ldh Ord92 LDH 130 U/L 09/22/2017 Comp Metabolic Wmp832 NA 141 mEq/L 09/22/2017 Comp Metabolic Oqn087 K 5.2 mEq/L 09/22/2017 Comp Metabolic Mlm131 CL 106 mEq/L 09/22/2017 Comp Metabolic Oqg853 CO2 29.0 mEq/L 09/22/2017 Comp Metabolic Vpo556 ANION GAP 11 09/22/2017 Comp Metabolic Aow659 GLUCOSE 115 mg/dL 09/22/2017 Comp Metabolic Qko962 Creat 0.9 mg/dL 09/22/2017 Comp Metabolic Yeu574 eGFR 88 ml/min/1.73m2 09/22/2017 Comp Metabolic Jlv532 BUN 18 mg/dL 09/22/2017 Comp Metabolic Vyw551 B/C Ratio 20.0 Ratio 09/22/2017 Comp Metabolic Ucd988 CALCIUM 8.7 mg/dL 09/22/2017 Comp Metabolic Icb970 ALK PHOS 103 U/L 09/22/2017 Comp Metabolic Qyk407 AST(SGOT) 32 U/L 09/22/2017 Comp Metabolic Ngw314 ALT(SGPT) 51 U/L 09/22/2017 Comp Metabolic Pty022 BILI T 0.4 mg/dL 09/22/2017 Comp Metabolic Egm474 ALBUMIN 3.8 g/dL 09/22/2017 Comp Metabolic Mcn192 TPRO 5.8 g/dL 09/22/2017 Comp Metabolic Wmo426 GLOB 2.0 g/dL 09/22/2017 Comp Metabolic Asp600 A/G Ratio 1.8 Ratio 09/22/2017 Comp Metabolic Mnr833 Osmo 284 mOsmo 09/22/2017 Comp Metabolic Lsw649 NA 140 mEq/L 06/27/2017 Comp Metabolic Uoa343 K 4.6 mEq/L 06/27/2017 Comp Metabolic Ihf845 CL 105 mEq/L 06/27/2017 Comp Metabolic Eef661 CO2 30.0 mEq/L 06/27/2017 Comp Metabolic Hcj089 ANION GAP 10 06/27/2017 Comp Metabolic Sto525 GLUCOSE 95 mg/dL 06/27/2017 Comp Metabolic Ltu229 Creat 0.8 mg/dL 06/27/2017 Comp Metabolic Sar237 eGFR 95 ml/min/1.73m2 06/27/2017 Comp Metabolic Urs937 BUN 14 mg/dL 06/27/2017 Comp Metabolic Iwa448 B/C Ratio 16.7 Ratio 06/27/2017 Comp Metabolic Gye467 CALCIUM 9.1 mg/dL 06/27/2017 Comp Metabolic Por259 ALK PHOS 129 U/L 06/27/2017 Comp Metabolic Vbx089 AST(SGOT) 29 U/L 06/27/2017 Comp Metabolic Jqn140 ALT(SGPT) 33 U/L 06/27/2017 Comp Metabolic Gjb745 BILI T 0.5 mg/dL 06/27/2017 Comp Metabolic Nsq066 ALBUMIN 3.9 g/dL 06/27/2017 Comp Metabolic Gkv120 TPRO 6.0 g/dL 06/27/2017 Comp Metabolic Wdr420 GLOB 2.1 g/dL 06/27/2017 Comp Metabolic Nld453 A/G Ratio 1.9 Ratio 06/27/2017 Comp Metabolic Mvy837 Osmo 280 mOsmo 06/27/2017 Cbc With Differential [...] 13.7 % 06/27/2017 Cbc With Differential Ord2 King% 9.8 % 06/27/2017 Cbc With Differential Ord2 [...] 0.50 K/ul 06/27/2017 Cbc With Differential Ord2 King ABS# 0.4 K/ul 06/27/2017 Cbc With Differential Ord2 Eos ABS# 0.1 K/ul 06/27/2017 Cbc With Differential Ord2 Baso ABS# 0.0 K/ul 06/27/2017 Ldh Ord92 LDH 173 U/L 06/27/2017 Uric Acid Ord77 Uric A 5.1 mg/dL 06/27/2017 Celiac Disease Comprehensive 82046 IMMUNOGLOBULIN A-SERUM . 06/20/2017 Celi[facility] 93313 IMMUNOGLOBULIN A-SERUM 89 mg/dL 06/20/2017 [facility] 55479 GLIADIN ANTIBODY, IGG . 06/20/2017 Celi[facility] 55051 GLIADIN ANTIBODY, IGG 3 EU/mL 06/20/2017 Celi[facility] 91777 GLIADIN ANTIBODY, IGA . 06/20/2017 Celiac Disease [facility] 02061 GLIADIN ANTIBODY, IGA <9 EU/mL 06/20/2017 [facility] 38409 TISSUE TRANSGLUTAMINASE AB, IGG . 06/20/2017 Celi[facility] Disease [facility] 13364 TISSUE TRANSGLUTAMINASE-G 5 EU/mL 06/20/2017 Celi[facility] Disease Comprehensive 56989 TISSUE TRANS. AB IGA W/REFLEX . 06/20/2017 Celiac Disease Comprehensive 79938 TISSUE TRANSGLUTAMINASE-A 6 EU/mL 06/20/2017 Allergen Profile, Comprehensive Food 36649 IMMUNOGLOBULIN E 3 IU/mL 06/19/2017 Allergen Profile, Comprehensive Food 00143 BACON'S YEAST <0.10 kU/L 06/19/2017 Allergen Profile, Comprehensive Food 91704 BARLEY <0.10 kU/L 06/19/2017 Allergen Profile, Comprehensive Food 72386 BEEF <0.10 kU/L 04/2017 Allergen Profile, Comprehensive Food 25313 CHICKEN MEAT <0.10 kU/L 06/19/2017 Allergen Profile, Comprehensive Food 53819 CHOCOLATE <0.10 kU/L 06/19/2017 Allergen Profile, Comprehensive Food 85664 COD <0.10 kU/L 04/2017 Allergen Profile, Comprehensive Food 94027 CORN <0.10 kU/L 04/2017 Allergen Profile, Comprehensive Food 03168 EGG WHITE <0.10 kU/L 06/19/2017 Allergen Profile, Comprehensive Food 62710 LETTUCE <0.10 kU/L 06/19/2017 Allergen Profile, Comprehensive Food 70763 MALT <0.10 kU/L 04/2017 Allergen Profile, Comprehensive Food 10997 MILK <0.10 kU/L 04/2017 Allergen Profile, Comprehensive Food 13114 OAT <0.10 kU/L 04/2017 Allergen Profile, Comprehensive Food 81578 ORANGE <0.10 kU/L 06/19/2017 Allergen Profile, Comprehensive Food 09329 PEANUT <0.10 kU/L 06/19/2017 Allergen Profile, Comprehensive Food 18222 PORK <0.10 kU/L 04/2017 Allergen Profile, Comprehensive Food 99908 POTATO <0.10 kU/L 06/19/2017 Allergen Profile, Comprehensive Food 74915 RYE <0.10 kU/L 04/2017 Allergen Profile, Comprehensive Food 63538 SHRIMP <0.10 kU/L 06/19/2017 Allergen Profile, Comprehensive Food 49863 SOYBEAN <0.10 kU/L 06/19/2017 Allergen Profile, Comprehensive Food 83551 TOMATO <0.10 kU/L 06/19/2017 Allergen Profile, Comprehensive Food 96653 WALNUT <0.10 kU/L 06/19/2017 Allergen Profile, Comprehensive Food 56501 WHEAT <0.10 kU/L Allergen Profile, Comprehensive Food 58700 STRAWBERRY <0.10 kU/L 06/19/2017 Allergen Profile, Comprehensive Food 53082 ALLERGEN INTERPRETATION 06/19/2017 Testosterone Cmu860 Testo 288.8 ng/dL 05/11/2017 Uric Acid Ord77 Uric A 6.0 mg/dL 05/05/2017 C-Reactive Protein Qnt Crqnt CRP 0.3 mg/dl 05/05/2017 Comp Metabolic Xtw993 NA 140 mEq/L 05/05/2017 Comp Metabolic Gmr837 K 4.1 mEq/L 05/05/2017 Comp Metabolic Zur039 CL 106 mEq/L 05/05/2017 Comp Metabolic Jni838 CO2 27.0 mEq/L 05/05/2017 Comp Metabolic Mcb669 ANION GAP 11 05/05/2017 Comp Metabolic Wni508 GLUCOSE 107 mg/dL 05/05/2017 Comp Metabolic Kna743 Creat 0.9 mg/dL 05/05/2017 Comp Metabolic Fxt593 eGFR 89 ml/min/1.73m2 05/05/2017 Comp Metabolic Wvi909 BUN 10 mg/dL 05/05/2017 Comp Metabolic Bjp010 B/C Ratio 11.2 Ratio 05/05/2017 Comp Metabolic Hbu036 CALCIUM 8.6 mg/dL 05/05/2017 Comp Metabolic Pjf986 ALK PHOS 96 U/L 05/05/2017 Comp Metabolic Jrs714 AST(SGOT) 36 U/L 05/05/2017 Comp Metabolic Cnv450 ALT(SGPT) 40 U/L 05/05/2017 Comp Metabolic Jtw487 BILI T 0.3 mg/dL 05/05/2017 Comp Metabolic Bws040 ALBUMIN 3.8 g/dL 05/05/2017 Comp Metabolic Jbm595 TPRO 5.8 g/dL 05/05/2017 Comp Metabolic Txa379 GLOB 2.0 g/dL 05/05/2017 Comp Metabolic Gxd334 A/G Ratio 1.9 Ratio 05/05/2017 Comp Metabolic Dof620 Osmo 279 mOsmo 05/05/2017 Sed Rate Ord21 ESR 22 mm/hr 05/05/2017 Magnesium Ord90 Mag 1.9 mg/dL 05/05/2017 Cbc With Differential Ord2 WBC 2.43 K/ul 05/05/2017 Cbc With Differential Ord2 RBC 4.66 M/ul 05/05/2017 Cbc With Differential Ord2 HGB 14.7 g/dl 05/05/2017 Cbc With Differential Ord2 HCT 43.1 % 05/05/2017 Cbc With Differential Ord2 Neut% 65.4 % 05/05/2017 Cbc With Differential Ord2 Lymph% 11.1 % 05/05/2017 Cbc With Differential Ord2 MCV 92.5 fl 05/05/2017 Cbc With Differential Ord2 MCH 31.5 pg 05/05/2017 Cbc With Differential Ord2 King% 20.6 % 05/05/2017 Cbc With Differential Ord2 Eos% 2.5 % 05/05/2017 Cbc With Differential Ord2 MCHC 34.1 pg 05/05/2017 Cbc With Differential Ord2 PLT 154 K/ul 05/05/2017 Cbc With Differential Ord2 Baso% 0.4 % 05/05/2017 Cbc With Differential Ord2 RDW 13.7 % 05/05/2017 Cbc With Differential Ord2 Neut ABS# 1.59 K/ul 05/05/2017 Cbc With Differential Ord2 Lymph ABS# 0.27 K/ul 05/05/2017 Cbc With Differential Ord2 King ABS# 0.5 K/ul 05/05/2017 Cbc With Differential Ord2 Eos ABS# 0.1 K/ul 05/05/2017 Cbc With Differential Ord2 Baso ABS# 0.0 K/ul 05/05/2017 Magnesium Ord90 Mag 2.2 mg/dL 04/25/2017 Comp Metabolic Pmv229 NA 143 mEq/L 04/25/2017 Comp Metabolic Skc801 K 4.2 mEq/L 04/25/2017 Comp Metabolic Dff535 CL 108 mEq/L 04/25/2017 Comp Metabolic Ecs390 CO2 30.0 mEq/L 04/25/2017 Comp Metabolic Oez018 ANION GAP 9 04/25/2017 Comp Metabolic Ltm601 GLUCOSE 80 mg/dL 04/25/2017 Comp Metabolic Yiq776 Creat 0.9 mg/dL 04/25/2017 Comp Metabolic Uah585 eGFR 84 ml/min/1.73m2 04/25/2017 Comp Metabolic Dip010 BUN 16 mg/dL 04/25/2017 Comp Metabolic Mcu509 B/C Ratio 17.0 Ratio 04/25/2017 Comp Metabolic Tyx229 CALCIUM 9.0 mg/dL 04/25/2017 Comp Metabolic Oji092 ALK PHOS 93 U/L 04/25/2017 Comp Metabolic Veq489 AST(SGOT) 32 U/L 04/25/2017 Comp Metabolic Dms465 ALT(SGPT) 36 U/L 04/25/2017 Comp Metabolic Jay862 BILI T 0.5 mg/dL 04/25/2017 Comp Metabolic Ola272 ALBUMIN 3.9 g/dL 04/25/2017 Comp Metabolic Som852 TPRO 6.0 g/dL 04/25/2017 Comp Metabolic Qmh797 GLOB 2.1 g/dL 04/25/2017 Comp Metabolic Qkz987 A/G Ratio 1.8 Ratio 04/25/2017 Comp Metabolic Dbh805 Osmo 285 mOsmo 04/25/2017 Cbc With Differential [...] 31.8 pg 04/25/2017 Cbc With Differential Ord2 King% 10.2 % 04/25/2017 Cbc With Differential Ord2 Eos% 2.0 % 04/25/2017 Cbc With Differential Ord2 MCHC 34.0 pg 04/25/2017 Cbc With Differential Ord2 Baso% 0.6 % 04/25/2017 Cbc With Differential Ord2 PLT 156 K/ul 04/25/2017 Cbc With Differential Ord2 RDW 13.6 % 04/25/2017 Cbc With Differential Ord2 Neut ABS# 4.02 K/ul 04/25/2017 Cbc With Differential Ord2 Lymph ABS# 0.32 K/ul 04/25/2017 Cbc With Differential Ord2 King ABS# 0.5 K/ul 04/25/2017 Cbc With Differential Ord2 Eos ABS# 0.1 K/ul 04/25/2017 Cbc With Differential Ord2 Baso ABS# 0.0 K/ul 04/25/2017 Uric Acid Ord77 Uric A 6.0 mg/dL 04/25/2017 Comp Metabolic Gtm702 NA 142 mEq/L 04/18/2017 Comp Metabolic Jlf619 K 4.3 mEq/L 04/18/2017 Comp Metabolic Rrc512 CL 105 mEq/L 04/18/2017 Comp Metabolic Jaz266 CO2 30.0 mEq/L 04/18/2017 Comp Metabolic Pyt271 ANION GAP 11 04/18/2017 Comp Metabolic Bhu980 GLUCOSE 126 mg/dL 04/18/2017 Comp Metabolic Shg126 Creat 1.0 mg/dL 04/18/2017 Comp Metabolic Kjj300 eGFR 83 ml/min/1.73m2 04/18/2017 Comp Metabolic Aso227 BUN 17 mg/dL 04/18/2017 Comp Metabolic Pcb671 B/C Ratio 17.9 Ratio 04/18/2017 Comp Metabolic Khl408 CALCIUM 9.0 mg/dL 04/18/2017 Comp Metabolic Yef635 ALK PHOS 100 U/L 04/18/2017 Comp Metabolic Gpa600 AST(SGOT) 27 U/L 04/18/2017 Comp Metabolic Fpq622 ALT(SGPT) 36 U/L 04/18/2017 Comp Metabolic Hhb138 BILI T 0.5 mg/dL 04/18/2017 Comp Metabolic Oww161 ALBUMIN 3.8 g/dL 04/18/2017 Comp Metabolic Mmz006 TPRO 6.0 g/dL 04/18/2017 Comp Metabolic Xnz978 GLOB 2.2 g/dL 04/18/2017 Comp Metabolic Xho179 A/G Ratio 1.8 Ratio 04/18/2017 Comp Metabolic Owm814 Osmo 286 mOsmo 04/18/2017 Uric Acid Ord77 [...] 6.0 % 04/18/2017 Cbc With Differential Ord2 MCH 32.3 pg 04/18/2017 Cbc With Differential Ord2 King% 9.6 % 04/18/2017 Cbc With Differential Ord2 Eos% 2.6 % 04/18/2017 Cbc With Differential Ord2 MCHC 34.4 pg 04/18/2017 Cbc With Differential Ord2 PLT 163 K/ul 04/18/2017 Cbc With Differential Ord2 Baso% 0.5 % 04/18/2017 Cbc With Differential Ord2 Neut ABS# 3.14 K/ul 04/18/2017 Cbc With Differential Ord2 RDW 13.7 % 04/18/2017 Cbc With Differential Ord2 Lymph ABS# 0.23 K/ul 04/18/2017 Cbc With Differential Ord2 King ABS# 0.4 K/ul 04/18/2017 Cbc With Differential Ord2 Eos ABS# 0.1 K/ul 04/18/2017 Cbc With Differential Ord2 Baso ABS# 0.0 K/ul 04/18/2017 Magnesium Ord90 Mag 2.1 mg/dL 04/18/2017 Magnesium Ord90 Mag 2.2 mg/dL 03/30/2017 Cbc With Differential Ord2 WBC 6.69 K/ul 03/30/2017 Cbc With Differential Ord2 RBC 4.65 M/ul 03/30/2017 Cbc With Differential Ord2 HGB 14.9 g/dl 03/30/2017 Cbc With Differential Ord2 HCT 43.4 % 03/30/2017 Cbc With Differential Ord2 Neut% 79.4 % 03/30/2017 Cbc With Differential Ord2 MCV 93.3 fl 03/30/2017 Cbc With Differential Ord2 Lymph% 6.3 % 03/30/2017 Cbc With Differential Ord2 MCH 32.0 pg 03/30/2017 Cbc With Differential Ord2 King% 12.1 % 03/30/2017 Cbc With Differential Ord2 MCHC 34.3 pg 03/30/2017 Cbc With Differential Ord2 Eos% 1.8 % 03/30/2017 Cbc With Differential Ord2 PLT 175 K/ul 03/30/2017 Cbc With Differential Ord2 Baso% 0.4 % 03/30/2017 Cbc With Differential Ord2 RDW 13.6 % 03/30/2017 Cbc With Differential Ord2 Neut ABS# 5.31 K/ul 03/30/2017 Cbc With Differential Ord2 Lymph ABS# 0.42 K/ul 03/30/2017 Cbc With Differential Ord2 King ABS# 0.8 K/ul 03/30/2017 Cbc With Differential Ord2 Eos ABS# 0.1 K/ul 03/30/2017 Cbc With Differential Ord2 Baso ABS# 0.0 K/ul 03/30/2017 Comp Metabolic Zed995 NA 141 mEq/L 03/30/2017 Comp Metabolic Knx485 K 4.7 mEq/L 03/30/2017 Comp Metabolic Qfy020 CL 106 mEq/L 03/30/2017 Comp Metabolic Vnf714 CO2 28.0 mEq/L 03/30/2017 Comp Metabolic Spf519 ANION GAP 12 03/30/2017 Comp Metabolic Brm737 GLUCOSE 81 mg/dL 03/30/2017 Comp Metabolic Xaq871 Creat 1.0 mg/dL 03/30/2017 Comp Metabolic Tov522 eGFR 80 ml/min/1.73m2 03/30/2017 Comp Metabolic Dmt628 BUN 17 mg/dL 03/30/2017 Comp Metabolic Uyb633 B/C Ratio 17.3 Ratio 03/30/2017 Comp Metabolic Jjy286 CALCIUM 8.9 mg/dL 03/30/2017 Comp Metabolic Skj518 ALK PHOS 106 U/L 03/30/2017 Comp Metabolic Ver812 AST(SGOT) 52 U/L 03/30/2017 Comp Metabolic Oyc783 ALT(SGPT) 54 U/L 03/30/2017 Comp Metabolic Evr209 BILI T 0.4 mg/dL 03/30/2017 Comp Metabolic Gtl642 ALBUMIN 3.8 g/dL 03/30/2017 Comp Metabolic Max989 TPRO 6.2 g/dL 03/30/2017 Comp Metabolic Bge008 GLOB 2.4 g/dL 03/30/2017 Comp Metabolic Lkq781 A/G Ratio 1.6 Ratio 03/30/2017 Comp Metabolic Vog427 Osmo 282 mOsmo 03/30/2017 Uric Acid Ord77 [...] 6.1 % 03/23/2017 Cbc With Differential Ord2 King% 10.7 % 03/23/2017 Cbc With Differential Ord2 [...] 0.31 K/ul 03/23/2017 Cbc With Differential Ord2 King ABS# 0.6 K/ul 03/23/2017 Cbc With Differential Ord2 Eos ABS# 0.1 K/ul 03/23/2017 Cbc With Differential Ord2 Baso ABS# 0.0 K/ul 03/23/2017 Magnesium Ord90 Mag 2.0 mg/dL 03/23/2017 Comp Metabolic Jqw858 NA 140 mEq/L 03/23/2017 Comp Metabolic Vzw643 K 4.4 mEq/L 03/23/2017 Comp Metabolic Scx028 CL 105 mEq/L 03/23/2017 Comp Metabolic Ryh487 CO2 30.0 mEq/L 03/23/2017 Comp Metabolic Xow864 ANION GAP 9 03/23/2017 Comp Metabolic Jwa852 GLUCOSE 75 mg/dL 03/23/2017 Comp Metabolic Jag699 Creat 0.9 mg/dL 03/23/2017 Comp Metabolic Rnq208 eGFR 87 ml/min/1.73m2 03/23/2017 Comp Metabolic Mom441 BUN 17 mg/dL 03/23/2017 Comp Metabolic Uac074 B/C Ratio 18.7 Ratio 03/23/2017 Comp Metabolic Nej245 CALCIUM 9.0 mg/dL 03/23/2017 Comp Metabolic Iyi909 ALK PHOS 91 U/L 03/23/2017 Comp Metabolic Tus968 AST(SGOT) 27 U/L 03/23/2017 Comp Metabolic Jnk855 ALT(SGPT) 30 U/L 03/23/2017 Comp Metabolic Fed981 BILI T 0.4 mg/dL 03/23/2017 Comp Metabolic Cym987 ALBUMIN 3.8 g/dL 03/23/2017 Comp Metabolic Irg141 TPRO 6.1 g/dL 03/23/2017 Comp Metabolic Qxa830 GLOB 2.3 g/dL 03/23/2017 Comp Metabolic Zss534 A/G Ratio 1.7 Ratio 03/23/2017 Comp Metabolic Nnq714 Osmo 280 mOsmo 03/23/2017 Uric Acid Ord77 [...] 94.0 fl 03/06/2017 Cbc With Differential Ord2 MCH 31.7 pg 03/06/2017 Cbc With Differential Ord2 King% 11.4 % 03/06/2017 Cbc With Differential Ord2 Eos% 3.0 % 03/06/2017 Cbc With Differential Ord2 MCHC 33.8 pg 03/06/2017 Cbc With Differential Ord2 Baso% 0.2 % 03/06/2017 Cbc With Differential Ord2 PLT 164 K/ul 03/06/2017 Cbc With Differential Ord2 Neut ABS# 3.32 K/ul 03/06/2017 Cbc With Differential Ord2 RDW 14.0 % 03/06/2017 Cbc With Differential Ord2 Lymph ABS# 0.33 K/ul 03/06/2017 Cbc With Differential Ord2 King ABS# 0.5 K/ul 03/06/2017 Cbc With Differential Ord2 Eos ABS# 0.1 K/ul 03/06/2017 Cbc With Differential Ord2 Baso ABS# 0.0 K/ul 03/06/2017 Comp Metabolic Ksr684 NA 143 mEq/L 03/06/2017 Comp Metabolic Wmj549 K 4.1 mEq/L 03/06/2017 Comp Metabolic Ppn044 CL 107 mEq/L 03/06/2017 Comp Metabolic Xxd560 CO2 29.0 mEq/L 03/06/2017 Comp Metabolic Aah598 ANION GAP 11 03/06/2017 Comp Metabolic Auo746 GLUCOSE 129 mg/dL 03/06/2017 Comp Metabolic Vcs054 Creat 0.9 mg/dL 03/06/2017 Comp Metabolic Uza936 eGFR 88 ml/min/1.73m2 03/06/2017 Comp Metabolic Sts597 BUN 15 mg/dL 03/06/2017 Comp Metabolic Arn174 B/C Ratio 16.7 Ratio 03/06/2017 Comp Metabolic Cda510 CALCIUM 8.7 mg/dL 03/06/2017 Comp Metabolic Nij588 ALK PHOS 99 U/L 03/06/2017 Comp Metabolic Imn840 AST(SGOT) 29 U/L 03/06/2017 Comp Metabolic Esw908 ALT(SGPT) 30 U/L 03/06/2017 Comp Metabolic Wzj105 BILI T 0.4 mg/dL 03/06/2017 Comp Metabolic Rxb983 ALBUMIN 3.8 g/dL 03/06/2017 Comp Metabolic Elk745 TPRO 5.9 g/dL 03/06/2017 Comp Metabolic Gyq732 GLOB 2.1 g/dL 03/06/2017 Comp Metabolic Rtd928 A/G Ratio 1.9 Ratio 03/06/2017 Comp Metabolic Vnm076 Osmo 288 mOsmo 03/06/2017 Uric Acid Ord77 Uric A 5.5 mg/dL 02/27/2017 Magnesium Ord90 Mag 2.2 mg/dL 02/27/2017 Comp Metabolic Hib522 NA 141 mEq/L 02/27/2017 Comp Metabolic Ymr249 K 4.5 mEq/L 02/27/2017 Comp Metabolic Pea911 CL 105 mEq/L 02/27/2017 Comp Metabolic Hci236 CO2 30.0 mEq/L 02/27/2017 Comp Metabolic Urz710 ANION GAP 11 02/27/2017 Comp Metabolic Yuq132 GLUCOSE 73 mg/dL 02/27/2017 Comp Metabolic Crr508 Creat 0.9 mg/dL 02/27/2017 Comp Metabolic Twp919 eGFR 87 ml/min/1.73m2 02/27/2017 Comp Metabolic Nne196 BUN 17 mg/dL 02/27/2017 Comp Metabolic Fsa456 B/C Ratio 18.7 Ratio 02/27/2017 Comp Metabolic Uod375 CALCIUM 8.8 mg/dL 02/27/2017 Comp Metabolic Wzb764 ALK PHOS 93 U/L 02/27/2017 Comp Metabolic Nku559 AST(SGOT) 31 U/L 02/27/2017 Comp Metabolic Iiw878 ALT(SGPT) 35 U/L 02/27/2017 Comp Metabolic Zob302 BILI T 0.4 mg/dL 02/27/2017 Comp Metabolic Jja623 ALBUMIN 3.9 g/dL 02/27/2017 Comp Metabolic Mqq723 TPRO 5.9 g/dL 02/27/2017 Comp Metabolic Vfa831 GLOB 2.0 g/dL 02/27/2017 Comp Metabolic Lzl030 A/G Ratio 2.0 Ratio 02/27/2017 Comp Metabolic Dpk810 Osmo 281 mOsmo 02/27/2017 Cbc With Differential Ord2 WBC 6.05 K/ul 02/27/2017 Cbc With Differential Ord2 RBC 4.58 M/ul 02/27/2017 Cbc With Differential Ord2 HGB 14.7 g/dl 02/27/2017 Cbc With Differential Ord2 Neut% 81.9 % 02/27/2017 Cbc With Differential Ord2 HCT 43.1 % 02/27/2017 Cbc With Differential Ord2 Lymph% 5.3 % 02/27/2017 Cbc With Differential Ord2 MCV 94.1 fl 02/27/2017 Cbc With Differential Ord2 King% 10.1 % 02/27/2017 Cbc With Differential Ord2 [...] 0.32 K/ul 02/27/2017 Cbc With Differential Ord2 King ABS# 0.6 K/ul 02/27/2017 Cbc With Differential Ord2 Eos ABS# 0.1 K/ul 02/27/2017 Cbc With Differential Ord2 Baso ABS# 0.0 K/ul 02/27/2017 Magnesium Ord90 Mag 2.2 mg/dL 02/21/2017 Cbc With Differential Ord2 WBC 5.58 K/ul 02/21/2017 Cbc With Differential Ord2 RBC 4.78 M/ul 02/21/2017 Cbc With Differential Ord2 HGB 15.3 g/dl 02/21/2017 Cbc With Differential Ord2 HCT 44.6 % 02/21/2017 Cbc With Differential Ord2 Neut% 82.7 % 02/21/2017 Cbc With Differential Ord2 Lymph% 5.6 % 02/21/2017 Cbc With Differential Ord2 MCV 93.3 fl 02/21/2017 Cbc With Differential Ord2 MCH 32.0 pg 02/21/2017 Cbc With Differential Ord2 King% 9.0 % 02/21/2017 Cbc With Differential Ord2 [...] 0.31 K/ul 02/21/2017 Cbc With Differential Ord2 King ABS# 0.5 K/ul 02/21/2017 Cbc With Differential Ord2 Eos ABS# 0.1 K/ul 02/21/2017 Cbc With Differential Ord2 Baso ABS# 0.0 K/ul 02/21/2017 Uric Acid Ord77 Uric A 5.0 mg/dL 02/21/2017 Comp Metabolic Hjg993 NA 134 mEq/L 02/21/2017 Comp Metabolic Fiu586 K 4.3 mEq/L 02/21/2017 Comp Metabolic Wgo714 CL 100 mEq/L 02/21/2017 Comp Metabolic Dts504 CO2 28.0 mEq/L 02/21/2017 Comp Metabolic Jkm952 ANION GAP 10 02/21/2017 Comp Metabolic Aen169 GLUCOSE 130 mg/dL 02/21/2017 Comp Metabolic Fbd938 Creat 1.0 mg/dL 02/21/2017 Comp Metabolic Uuv845 eGFR 77 ml/min/1.73m2 02/21/2017 Comp Metabolic Dem304 BUN 17 mg/dL 02/21/2017 Comp Metabolic Dmz766 B/C Ratio 16.8 Ratio 02/21/2017 Comp Metabolic Dgy120 CALCIUM 9.1 mg/dL 02/21/2017 Comp Metabolic Cto126 ALK PHOS 92 U/L 02/21/2017 Comp Metabolic Bhs018 AST(SGOT) 23 U/L 02/21/2017 Comp Metabolic Vjd365 ALT(SGPT) 29 U/L 02/21/2017 Comp Metabolic Wul345 BILI T 0.3 mg/dL 02/21/2017 Comp Metabolic Fmi799 ALBUMIN 3.9 g/dL 02/21/2017 Comp Metabolic Rtd164 TPRO 6.1 g/dL 02/21/2017 Comp Metabolic Xed911 GLOB 2.2 g/dL 02/21/2017 Comp Metabolic Qky619 A/G Ratio 1.8 Ratio 02/21/2017 Comp Metabolic Kun356 Osmo 272 mOsmo 02/21/2017 Uric Acid Ord77 Uric A 4.2 mg/dL 02/07/2017 Comp Metabolic Src976 NA 139 mEq/L 02/07/2017 Comp Metabolic Eju150 K 4.6 mEq/L 02/07/2017 Comp Metabolic Lhf194 CL 106 mEq/L 02/07/2017 Comp Metabolic Xsk082 CO2 29.0 mEq/L 02/07/2017 Comp Metabolic Pqt945 ANION GAP 9 02/07/2017 Comp Metabolic Gat406 GLUCOSE 99 mg/dL 02/07/2017 Comp Metabolic Wvc503 Creat 0.9 mg/dL 02/07/2017 Comp Metabolic Ivg686 eGFR 92 ml/min/1.73m2 02/07/2017 Comp Metabolic Aqz974 BUN 19 mg/dL 02/07/2017 Comp Metabolic Gep353 B/C Ratio 21.8 Ratio 02/07/2017 Comp Metabolic Cru378 CALCIUM 8.8 mg/dL 02/07/2017 Comp Metabolic Hqb674 ALK PHOS 81 U/L 02/07/2017 Comp Metabolic Iiq543 AST(SGOT) 22 U/L 02/07/2017 Comp Metabolic Bki686 ALT(SGPT) 24 U/L 02/07/2017 Comp Metabolic Yna869 BILI T 0.3 mg/dL 02/07/2017 Comp Metabolic Ljn208 ALBUMIN 3.9 g/dL 02/07/2017 Comp Metabolic But109 TPRO 5.8 g/dL 02/07/2017 Comp Metabolic Tme878 GLOB 1.9 g/dL 02/07/2017 Comp Metabolic Qvn208 A/G Ratio 2.0 Ratio 02/07/2017 Comp Metabolic Jmb371 Osmo 280 mOsmo 02/07/2017 Cbc With Differential [...] 31.9 pg 02/07/2017 Cbc With Differential Ord2 King% 12.0 % 02/07/2017 Cbc With Differential Ord2 Eos% 3.1 % 02/07/2017 Cbc With Differential Ord2 MCHC 34.2 pg 02/07/2017 Cbc With Differential Ord2 PLT 184 K/ul 02/07/2017 Cbc With Differential Ord2 Baso% 0.7 % 02/07/2017 Cbc With Differential Ord2 Neut ABS# 3.13 K/ul 02/07/2017 Cbc With Differential Ord2 RDW 14.2 % 02/07/2017 Cbc With Differential Ord2 Lymph ABS# 0.44 K/ul 02/07/2017 Cbc With Differential Ord2 King ABS# 0.5 K/ul 02/07/2017 Cbc With Differential Ord2 Eos ABS# 0.1 K/ul 02/07/2017 Cbc With Differential Ord2 Baso ABS# 0.0 K/ul 02/07/2017 Magnesium Ord90 Mag 2.1 mg/dL 02/07/2017 Comp Metabolic Cov222 NA 142 mEq/L 01/31/2017 Comp Metabolic Mys990 K 4.7 mEq/L 01/31/2017 Comp Metabolic Dhx272 CL 106 mEq/L 01/31/2017 Comp Metabolic Jbq360 CO2 32.0 mEq/L 01/31/2017 Comp Metabolic Qfn093 ANION GAP 9 01/31/2017 Comp Metabolic Nws246 GLUCOSE 93 mg/dL 01/31/2017 Comp Metabolic Ewo783 Creat 1.0 mg/dL 01/31/2017 Comp Metabolic Jna365 eGFR 83 ml/min/1.73m2 01/31/2017 Comp Metabolic Emy765 BUN 20 mg/dL 01/31/2017 Comp Metabolic Akd085 B/C Ratio 21.1 Ratio 01/31/2017 Comp Metabolic Ewb045 CALCIUM 9.1 mg/dL 01/31/2017 Comp Metabolic Moy091 ALK PHOS 80 U/L 01/31/2017 Comp Metabolic Wwi136 AST(SGOT) 22 U/L 01/31/2017 Comp Metabolic Ngn190 ALT(SGPT) 24 U/L 01/31/2017 Comp Metabolic Wpf293 BILI T 0.4 mg/dL 01/31/2017 Comp Metabolic Rqy302 ALBUMIN 4.0 g/dL 01/31/2017 Comp Metabolic Cum168 TPRO 6.0 g/dL 01/31/2017 Comp Metabolic Akz896 GLOB 2.1 g/dL 01/31/2017 Comp Metabolic Bei855 A/G Ratio 1.9 Ratio 01/31/2017 Comp Metabolic Gjd226 Osmo 285 mOsmo 01/31/2017 Cbc With Differential [...] 5.3 % 01/31/2017 Cbc With Differential Ord2 King% 7.9 % 01/31/2017 Cbc With Differential Ord2 MCH 31.9 pg 01/31/2017 Cbc With Differential Ord2 Eos% 1.7 % 01/31/2017 Cbc With Differential Ord2 MCHC 33.8 pg 01/31/2017 Cbc With Differential Ord2 Baso% 0.1 % 01/31/2017 Cbc With Differential Ord2 PLT 173 K/ul 01/31/2017 Cbc With Differential Ord2 Neut ABS# 6.05 K/ul 01/31/2017 Cbc With Differential Ord2 RDW 14.5 % 01/31/2017 Cbc With Differential Ord2 Lymph ABS# 0.38 K/ul 01/31/2017 Cbc With Differential Ord2 King ABS# 0.6 K/ul 01/31/2017 Cbc With Differential [...] 32.1 pg 01/23/2017 Cbc With Differential Ord2 King% 8.9 % 01/23/2017 Cbc With Differential Ord2 MCHC 34.0 pg 01/23/2017 Cbc With Differential Ord2 Eos% 1.5 % 01/23/2017 Cbc With Differential Ord2 Baso% 0.2 % 01/23/2017 Cbc With Differential Ord2 PLT 177 K/ul 01/23/2017 Cbc With Differential Ord2 Neut ABS# 4.81 K/ul 01/23/2017 Cbc With Differential Ord2 RDW 14.5 % 01/23/2017 Cbc With Differential Ord2 Lymph ABS# 0.42 K/ul 01/23/2017 Cbc With Differential Ord2 King ABS# 0.5 K/ul 01/23/2017 Cbc With Differential Ord2 Eos ABS# 0.1 K/ul 01/23/2017 Cbc With Differential Ord2 Baso ABS# 0.0 K/ul 01/23/2017 Uric Acid Ord77 Uric A 5.4 mg/dL 01/23/2017 Comp Metabolic Rmr178 NA 141 mEq/L 01/23/2017 Comp Metabolic Evx641 K 4.4 mEq/L 01/23/2017 Comp Metabolic Xxu488 CL 104 mEq/L 01/23/2017 Comp Metabolic Mdu799 CO2 31.0 mEq/L 01/23/2017 Comp Metabolic Hey533 ANION GAP 10 01/23/2017 Comp Metabolic Qxj780 GLUCOSE 109 mg/dL 01/23/2017 Comp Metabolic Biq137 Creat 1.1 mg/dL 01/23/2017 Comp Metabolic Rkg250 eGFR 71 ml/min/1.73m2 01/23/2017 Comp Metabolic Oeu279 BUN 22 mg/dL 01/23/2017 Comp Metabolic Wlk182 B/C Ratio 20.4 Ratio 01/23/2017 Comp Metabolic Pho955 CALCIUM 9.1 mg/dL 01/23/2017 Comp Metabolic Xub032 ALK PHOS 76 U/L 01/23/2017 Comp Metabolic Cmf869 AST(SGOT) 22 U/L 01/23/2017 Comp Metabolic Ilo461 ALT(SGPT) 22 U/L 01/23/2017 Comp Metabolic Ygh475 BILI T 0.4 mg/dL 01/23/2017 Comp Metabolic Vff624 ALBUMIN 3.8 g/dL 01/23/2017 Comp Metabolic Ene481 TPRO 5.9 g/dL 01/23/2017 Comp Metabolic Eyi939 GLOB 2.1 g/dL 01/23/2017 Comp Metabolic Bse226 A/G Ratio 1.8 Ratio 01/23/2017 Comp Metabolic Ypo386 Osmo 285 mOsmo 01/23/2017 Testosterone Qno223 Testo 321.3 ng/dL 01/10/2017 Comp Metabolic Wic423 NA 141 mEq/L 01/10/2017 Comp Metabolic Xol720 K 4.8 mEq/L 01/10/2017 Comp Metabolic Pvk179 CL 106 mEq/L 01/10/2017 Comp Metabolic Bbi165 CO2 29.0 mEq/L 01/10/2017 Comp Metabolic Hhf368 ANION GAP 11 01/10/2017 Comp Metabolic Ddm900 GLUCOSE 73 mg/dL 01/10/2017 Comp Metabolic Khb779 Creat 0.9 mg/dL 01/10/2017 Comp Metabolic Vgw396 eGFR 93 ml/min/1.73m2 01/10/2017 Comp Metabolic Pfu414 BUN 19 mg/dL 01/10/2017 Comp Metabolic Mvy242 B/C Ratio 22.1 Ratio 01/10/2017 Comp Metabolic Bbl863 CALCIUM 9.0 mg/dL 01/10/2017 Comp Metabolic Iag458 ALK PHOS 80 U/L 01/10/2017 Comp Metabolic Xad605 AST(SGOT) 24 U/L 01/10/2017 Comp Metabolic Nwc181 ALT(SGPT) 28 U/L 01/10/2017 Comp Metabolic Jjk801 BILI T 0.4 mg/dL 01/10/2017 Comp Metabolic Tqx881 ALBUMIN 3.8 g/dL 01/10/2017 Comp Metabolic Ypc681 TPRO 5.9 g/dL 01/10/2017 Comp Metabolic Kcn343 GLOB 2.1 g/dL 01/10/2017 Comp Metabolic Vrp303 A/G Ratio 1.9 Ratio 01/10/2017 Comp Metabolic Ide595 Osmo 282 mOsmo 01/10/2017 Cbc With Differential [...] 31.9 pg 01/10/2017 Cbc With Differential Ord2 King% 9.6 % 01/10/2017 Cbc With Differential Ord2 Eos% 1.9 % 01/10/2017 Cbc With Differential Ord2 MCHC 33.7 pg 01/10/2017 Cbc With Differential Ord2 PLT 201 K/ul 01/10/2017 Cbc With Differential Ord2 Baso% 0.3 % 01/10/2017 Cbc With Differential Ord2 RDW 14.6 % 01/10/2017 Cbc With Differential Ord2 Neut ABS# 5.05 K/ul 01/10/2017 Cbc With Differential Ord2 Lymph ABS# 0.62 K/ul 01/10/2017 Cbc With Differential Ord2 King ABS# 0.6 K/ul 01/10/2017 Cbc With Differential [...] 31.8 pg 01/03/2017 Cbc With Differential Ord2 King% 8.6 % 01/03/2017 Cbc With Differential Ord2 [...] 0.42 K/ul 01/03/2017 Cbc With Differential Ord2 King ABS# 0.5 K/ul 01/03/2017 Cbc With Differential Ord2 Eos ABS# 0.1 K/ul 01/03/2017 Cbc With Differential Ord2 Baso ABS# 0.0 K/ul 01/03/2017 Comp Metabolic Lzp605 NA 140 mEq/L 01/03/2017 Comp Metabolic Tov338 K 4.7 mEq/L 01/03/2017 Comp Metabolic Hkk314 CL 106 mEq/L 01/03/2017 Comp Metabolic Wdv532 CO2 28.0 mEq/L 01/03/2017 Comp Metabolic Hvc583 ANION GAP 11 01/03/2017 Comp Metabolic Dyk684 GLUCOSE 126 mg/dL 01/03/2017 Comp Metabolic Gxt702 Creat 0.9 mg/dL 01/03/2017 Comp Metabolic Lnk604 eGFR 88 ml/min/1.73m2 01/03/2017 Comp Metabolic Qyr797 BUN 23 mg/dL 01/03/2017 Comp Metabolic Pzv884 B/C Ratio 25.6 Ratio 01/03/2017 Comp Metabolic Ymk551 CALCIUM 8.8 mg/dL 01/03/2017 Comp Metabolic Ouk180 ALK PHOS 73 U/L 01/03/2017 Comp Metabolic Mym287 AST(SGOT) 25 U/L 01/03/2017 Comp Metabolic Alz394 ALT(SGPT) 30 U/L 01/03/2017 Comp Metabolic Afe291 BILI T 0.4 mg/dL 01/03/2017 Comp Metabolic Yrd746 ALBUMIN 3.9 g/dL 01/03/2017 Comp Metabolic Yed374 TPRO 5.9 g/dL 01/03/2017 Comp Metabolic Suo841 GLOB 2.1 g/dL 01/03/2017 Comp Metabolic Ngf333 A/G Ratio 1.9 Ratio 01/03/2017 Comp Metabolic Wzs391 Osmo 285 mOsmo 01/03/2017 Cbc With Differential Ord2 WBC 5.98 K/ul 12/12/2016 Cbc With Differential Ord2 RBC 4.48 M/ul 12/12/2016 Cbc With Differential Ord2 HGB 14.2 g/dl 12/12/2016 Cbc With Differential Ord2 Neut% 75.2 % 12/12/2016 Cbc With Differential Ord2 HCT 42.3 % 12/12/2016 Cbc With Differential Ord2 MCV 94.4 fl 12/12/2016 Cbc With Differential Ord2 Lymph% 13.4 % 12/12/2016 Cbc With Differential Ord2 MCH 31.7 pg 12/12/2016 Cbc With Differential Ord2 King% 8.9 % 12/12/2016 Cbc With Differential Ord2 [...] 0.80 K/ul 12/12/2016 Cbc With Differential Ord2 King ABS# 0.5 K/ul 12/12/2016 Cbc With Differential Ord2 Eos ABS# 0.1 K/ul 12/12/2016 Cbc With Differential Ord2 Baso ABS# 0.1 K/ul 12/12/2016 Comp Metabolic Gvh802 NA 140 mEq/L 12/12/2016 Comp Metabolic Oej276 K 3.8 mEq/L 12/12/2016 Comp Metabolic Gxv381 CL 105 mEq/L 12/12/2016 Comp Metabolic Wln361 CO2 26.0 mEq/L 12/12/2016 Comp Metabolic Drf291 ANION GAP 13 12/12/2016 Comp Metabolic Slk372 GLUCOSE 112 mg/dL 12/12/2016 Comp Metabolic Slw895 Creat 0.9 mg/dL 12/12/2016 Comp Metabolic Cba362 eGFR 89 ml/min/1.73m2 12/12/2016 Comp Metabolic Cir348 BUN 16 mg/dL 12/12/2016 Comp Metabolic Pin881 B/C Ratio 18.0 Ratio 12/12/2016 Comp Metabolic Xgy273 CALCIUM 8.6 mg/dL 12/12/2016 Comp Metabolic Oqk122 ALK PHOS 80 U/L 12/12/2016 Comp Metabolic Aoa465 AST(SGOT) 21 U/L 12/12/2016 Comp Metabolic Ioi791 ALT(SGPT) 23 U/L 12/12/2016 Comp Metabolic Dyt910 BILI T 0.4 mg/dL 12/12/2016 Comp Metabolic Ngz913 ALBUMIN 3.7 g/dL 12/12/2016 Comp Metabolic Lwd232 TPRO 5.6 g/dL 12/12/2016 Comp Metabolic Qqq541 GLOB 1.9 g/dL 12/12/2016 Comp Metabolic Ztc850 A/G Ratio 2.0 Ratio 12/12/2016 Comp Metabolic Exa698 Osmo 281 mOsmo 12/12/2016 Comp Metabolic Ftd869 NA 140 mEq/L 12/05/2016 Comp Metabolic Wmv120 K 4.6 mEq/L 12/05/2016 Comp Metabolic Xut662 CL 104 mEq/L 12/05/2016 Comp Metabolic Aau468 CO2 29.0 mEq/L 12/05/2016 Comp Metabolic Bai324 ANION GAP 12 12/05/2016 Comp Metabolic Xwr835 GLUCOSE 93 mg/dL 12/05/2016 Comp Metabolic Wyx279 Creat 0.8 mg/dL 12/05/2016 Comp Metabolic Cfp972 eGFR 98 ml/min/1.73m2 12/05/2016 Comp Metabolic Srk120 BUN 20 mg/dL 12/05/2016 Comp Metabolic Fmq437 B/C Ratio 24.4 Ratio 12/05/2016 Comp Metabolic Aqp842 CALCIUM 8.8 mg/dL 12/05/2016 Comp Metabolic Plw629 ALK PHOS 82 U/L 12/05/2016 Comp Metabolic Vcf507 AST(SGOT) 24 U/L 12/05/2016 Comp Metabolic Zgd054 ALT(SGPT) 28 U/L 12/05/2016 Comp Metabolic Xqf239 BILI T 0.4 mg/dL 12/05/2016 Comp Metabolic Azz938 ALBUMIN 3.9 g/dL 12/05/2016 Comp Metabolic Qrz459 TPRO 5.9 g/dL 12/05/2016 Comp Metabolic Snv841 GLOB 2.0 g/dL 12/05/2016 Comp Metabolic Axx023 A/G Ratio 2.0 Ratio 12/05/2016 Comp Metabolic Wew837 Osmo 282 mOsmo 12/05/2016 Cbc With Differential [...] 94.4 fl 12/05/2016 Cbc With Differential Ord2 King% 8.8 % 12/05/2016 Cbc With Differential Ord2 MCH 31.3 pg 12/05/2016 Cbc With Differential Ord2 MCHC 33.2 pg 12/05/2016 Cbc With Differential Ord2 Eos% 2.3 % 12/05/2016 Cbc With Differential Ord2 PLT 196 K/ul 12/05/2016 Cbc With Differential Ord2 Baso% 0.5 % 12/05/2016 Cbc With Differential Ord2 Neut ABS# 5.78 K/ul 12/05/2016 Cbc With Differential Ord2 RDW 15.2 % 12/05/2016 Cbc With Differential Ord2 Lymph ABS# 1.16 K/ul 12/05/2016 Cbc With Differential Ord2 King ABS# 0.7 K/ul 12/05/2016 Cbc With Differential [...] Code : 8480-6 BMI: 30.0 Code : 66331-2 Heart Rate 1 : 66 bpm Height: 6' SpO2: 99% Weight: 221 lbs 01/02/2018 Blood Pressure 1: 130/76 Code : 8480-6 BMI: 29.4 Code : 10431-7 Heart Rate 1 : 90 bpm Height: 6' SpO2: 99% Weight: 217 lbs 12/21/2017 Blood Pressure 1: 142/80 Code : 8480-6 BMI: 29.7 Code : 45686-7 Heart Rate 1 : 74 bpm Height: 6' SpO2: 96% Weight: 219 lbs 11/22/2017 Blood Pressure 1: 130/72 Code : 8480-6 BMI: 29.8 Code : 57540-7 Heart Rate 1 : 53 bpm Height: 6' SpO2: 97% Weight: 220 lbs 07/19/2017 Blood Pressure 1: 142/80 Code : 8480-6 BMI: 30.1 Code : 89352-9 Heart Rate 1 : 60 bpm Height: 6' SpO2: 99% Weight: 222 lbs 06/05/2017 Blood Pressure 1: 136/74 Code : 8480-6 BMI: 30.2 Code : 93993-0 Heart Rate 1 : 59 bpm Height: 6' SpO2: 98% Weight: 223 lbs 05/03/2017 Blood Pressure 1: 128/80 Code : 8480-6 BMI: 30.2 Code : 70991-8 Heart Rate 1 : 79 bpm Height: 6' SpO2: 98% Weight: 223 lbs 02/27/2017 Blood Pressure 1: 126/66 Code : 8480-6 BMI: 30.2 Code : 60521-0 Heart Rate 1 : 61 bpm Height: 6' SpO2: 99% Weight: 223 lbs 01/10/2017 Blood Pressure 1: 136/70 Code : 8480-6 BMI: 30.0 Code : 56706-6 Heart Rate 1 : 62 bpm Height: 6' SpO2: 98% Weight: 221 lbs 8 oz 12/05/2016 Blood Pressure 1: 138/74 Code : 8480-6 BMI: 29.3 Code : 76312-8 Heart Rate 1 : 62 bpm Height: [...] data Encounters Encounter Performer Location Codes Date ([id number]) [id number] EST. PATIENT, LEVEL IV Diagnosis: Generalized anxiety disorder[ICD10: F41.1] Diagnosis: Major depressive disorder, single episode, moderate[ICD10: F32.1] Diagnosis: Adjustment insomnia[ICD10: F51.02] Nalini Salomon MD, [facility] CPT-4: 19835 02/01/2018 [id number] EST. PATIENT, LEVEL III Diagnosis: Generalized anxiety disorder[ICD10: F41.1] Diagnosis: Major depressive disorder, single episode, moderate[ICD10: F32.1] Leonor Salomon MD, [facility] CPT-4: 61706 01/02/2018 [id number]) [id number] EST. PATIENT, LEVEL III Diagnosis: Concussion without loss of consciousness, initial encounter[ICD10: S06.0X0A] Diagnosis: Laceration without foreign body of other part of head, initial encounter[ICD10: S01.81XA] Harriet Salomon MD, [facility] CPT-4: 24291 12/21/2017 [id number]) 13887 EST. 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 PATIENT, LEVEL III Diagnosis: Rash and other nonspecific skin eruption[ICD10: R21] Diagnosis: Slow transit constipation[ICD10: K59.01] Harriet Salomon MD [facility] CPT-4: 62763 07/19/2017 ([id number]) 56772 EST. PATIENT, LEVEL III Diagnosis: Epigastric pain[ICD10: R10.13] Harriet Salomon MD [facility] CPT- 4: 75250 06/05/2017 ([id number]) 47252 EST. PATIENT, LEVEL IV Diagnosis: Umbilical hernia without obstruction or gangrene[ICD10: K42.9] Diagnosis: Chronic lymphocytic leukemia of B-cell type not having achieved remission[ICD10: C91.10] Diagnosis: Pain in left hip[ICD10: M25.552] Diagnosis: Pain in right hip[ICD10: M25.551] Diagnosis: Pain in left knee[ICD10: M25.562] Diagnosis: Pain in right knee[ICD10: M25.561] Harriet Salomon MD, [facility] CPT-4: 99668 05/03/2017 ([id number]) 47627 EST. PATIENT, LEVEL IV Diagnosis: Chronic lymphocytic leukemia of B-cell type not having achieved remission[ICD10: C91.10] Diagnosis: Periumbilical pain[ICD10: R10.33] Harriet Salomon MD, [facility] CPT-4: 21708 02/27/2017 ([id number]) 73062 EST. 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] Diagnosis: Umbilical hernia without obstruction or gangrene[ICD10: K42.9] [facility] CPT-4: 31077 01/10/2017 ([id number]) OFFICE VISIT, NEW - LEVEL 4 Diagnosis: Umbilical hernia without obstruction or gangrene[ICD10: K42.9] Diagnosis: Periumbilical pain[ICD10: R10.33] Diagnosis: Chronic lymphocytic leukemia of B-cell type not having achieved remission[ICD10: C91.10] Diagnosis: Slow transit constipation[ICD10: K59.01] [facility] CPT-4: 97415 12/05/2016 Plan of Care Planned Activity Notes [...] Daytime napping worsens night time insomnia. 02/01/2018 Patient Education: Patient Medication Summary Completed [...] this patient. 01/02/2018 Appointment: Leonor Niño WPtel: [address] [place], [place] [id number] (15 min) Moderate 01/02/2018 Patient Education: Patient [...] at times. 12/21/2017 Appointment: Harriet Salomon WPtel: [address] [place], [place] [id number] (15 min) Moderate 12/21/2017 Patient Education: Patient [...] this time. 11/22/2017 Appointment: Harriet Salomon [facility]Ptel[facility] [place] (15 min) Moderate 11/22/2017 Patient Education: Patient Medication Summary Completed 11/22/2017 Visit Plan: CLL - pt has finished chemotherapy - continue with follow up with Dr. Austin. Umbilical hernia -pt is not interested in surgery right now. Constipation - continue with current regimen - add prune juice - keep appt for colonoscopy and EGD. 07/19/2017 Appointment: Harriet Salomon WPtel: [facility] [place] (15 min) Moderate 07/19/2017 Patient Education: Patient Medication Summary Completed 07/19/2017 Visit Plan: Epigastric abdominal pain - pt advised to avoid dairy products - pt to start on start on the carafate and restart pepcid 06/05/2017 Appointment: Harriet Salomon WPtel: [facility] [place] (15 min) Moderate 06/05/2017 Patient Education: [...] surgery. 05/03/2017 Appointment: [phone] [facility] [place] (15 min) Moderate 05/03/2017 Patient Education: Patient Medication Summary Completed 05/03/2017 Visit Plan: CLL - continue with chemotherapy. Umbilical hernia - agree with plans for pt to have re-evaluation with surgeon after his chemotherapy is complete. 02/27/2017 Appointment: Harriet Salomon WPtel: [phone] [facility] (15 min) Moderate 02/27/2017 Patient Education: [...] is completed. 01/10/2017 Appointment: Harriet Salomon WPtel: [phone] [facility] (15 min) Moderate 01/10/2017 Patient Education: Patient Medication Summary Completed 01/10/2017 Patient Education: Obesity Completed 01/10/2017 Care Plan: ASSAY OF TOTAL TESTOSTERONE LOINC : 32040-5 Pending 01/10/2017 Appointment: Harriet Salomon WPtel: [phone] [facility] (15 min) Moderate 01/02/2017 Visit Plan: [...] this regimen. 12/05/2016 Appointment: Harriet Salomon WPtel: [phone] [facility] New Patient 12/05/2016 Patient Education: Patient [...] carafate and restart pepcid please have the mountain bike guide look at the rough area below your [...]
--- NOTE | 2018-05-10 18:43 | ED Abdominal Pain ---
General Chief Complaint: constipation Stated Complaint: constipation Source of Information: Patient History of Present Illness Date Seen by Provider: May 10, 2018 Time Seen by Provider: 18:35 Timing/Duration: 4-6 Hours Severity/Quality: Moderate Location: Generalized Abdomen Radiation: No Radiation Activities at Onset: None Modifying Factors: Improves With Analgesics The pt is a pleasant 73 y/o male who presents for evaluation of generalized abdominal pain and constipation. The pt had a ventral wall hernia repair with Dr. Srini Dawson in [place] 2 days ago. He was kept overnight for pain control and discharged yesterday. Since that time he reports taking his pain medication as directed as well as the magnesium citrate he was prescribed. He stopped taking the pain medication this morning because he had not yet had a bowel movement. He called his surgeon's office today and was told to go to the ER and that he may need an enema to facilitate a bowel movement. He reports some mild nausea but no vomiting. His pain is non-radiating, somewhat crampy, and comes and goes. Allergies and Home Medications Allergies Coded Allergies: meperidine (Unverified Allergy, Mild, PINK RASH, 05/08/18) PINK RASH NOTED BY IV SITE 4 MINUTES AFTER DEMEROL ADMINISTRATION. Home Medications Alprazolam 1 Mg Tablet, 1 MG PO TID, (Reported) Hydrocodone Bit/Acetaminophen 1 Tab Tab, 1-2 TAB PO Q6H PRN for PAIN-MODERATE Prescribed by: SRINI DAWSON on 05/08/18 1137 Patient Home Medication List Home Medication List Reviewed: Yes Review of Systems Review of Systems Constitutional: no symptoms reported EENTM: No Symptoms Reported Respiratory: No Symptoms Reported Gastrointestinal: Abdominal Pain, Constipated Genitourinary: No Symptoms Reported Musculoskeletal: no symptoms reported Skin: no symptoms reported Psychiatric/Neurological: No Symptoms Reported All Other Systems Reviewed Negative Unless Noted: Yes Past [id number] Hx Past Med/Social Hx: Reviewed Nursing Past Med/Soc Hx Patient Social History Recent Foreign Travel: No Contact w/Someone Who Travel: No Past Medical History Surgeries: Yes (BY PASS) Gallbladder Respiratory: No Cardiac: Yes Heart Attack, High Cholesterol, Hypertension Neurological: No Gastrointestinal: No Musculoskeletal: No Endocrine: No Cancer: Yes Leukemia Psychosocial: No Anxiety Family Medical History Reviewed Nursing Family Hx No Pertinent Family Hx Physical Exam Vital Signs Vital Signs - First Documented 05/10/18 18:27 Temp 98.1 Pulse 92 Resp 20 B/P (MAP) 190/77 (114) Pulse Ox 94 O2 Delivery Room Air Capillary Refill : Height/Weight/BMI Height: 6'0.00" Weight: 222lbs. 4.0oz. 100.159492hp; 30.1 BMI Method:Stated General Appearance: WD/WN, no apparent distress HEENT: PERRL/EOMI, normal ENT inspection, TMs normal, pharynx normal Neck: non-tender, full range of motion Respiratory: chest non-tender, lungs clear, normal breath sounds, no respiratory distress, no accessory muscle use Cardiovascular: regular rate, rhythm, no edema, no JVD, no murmur Gastrointestinal: soft, no organomegaly, no pulsatile mass, abnormal bowel sounds (decreased), tenderness (mild, generalized), hernia (small periumbilical hernia (pt reports baseline size, non-tender)) Extremities: normal range of motion, non-tender, normal inspection, no pedal edema 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, no motor/sensory deficits, alert, normal mood/affect, oriented x 3 Skin: normal color, warm/dry Lymphatic: no adenopathy Progress/Results/Core Measures Results/Orders Lab Results Laboratory Tests Test 05/10/18 18:45 Range/Units White Blood Count 7.8 4.3-11.0 10^3/uL Red Blood Count 4.85 4.35-5.85 10^6/uL Hemoglobin 15.6 13.3-17.7 G/DL Hematocrit 46 40-54 % Mean Corpuscular Volume 94 80-99 FL Mean Corpuscular Hemoglobin 32 25-34 PG Mean Corpuscular Hemoglobin Concent 34 32-36 G/DL Red Cell Distribution Width 12.4 10.0-14.5 % Platelet Count 175 130-400 10^3/uL Mean Platelet Volume 11.9 H 7.4-10.4 FL Neutrophils (%) (Auto) 86 H 42-75 % Lymphocytes (%) (Auto) 5 L 12-44 % Monocytes (%) (Auto) 8 0-12 % Eosinophils (%) (Auto) 1 0-10 % Basophils (%) (Auto) 0 0-10 % Neutrophils # (Auto) 6.7 1.8-7.8 X 10^3 Lymphocytes # (Auto) 0.4 L 1.0-4.0 X 10^3 Monocytes # (Auto) 0.6 0.0-1.0 X 10^3 Eosinophils # (Auto) 0.1 0.0-0.3 10^3/uL Basophils # (Auto) 0.0 0.0-0.1 10^3/uL Neutrophils % (Manual) 88 % Lymphocytes % (Manual) 3 % Monocytes % (Manual) 7 % Eosinophils % (Manual) 0 % Basophils % (Manual) 0 % Band Neutrophils 2 % Sodium Level 140 135-145 MMOL/L Potassium Level 4.3 3.6-5.0 MMOL/L Chloride Level 101 98-107 MMOL/L Carbon Dioxide Level 24 21-32 MMOL/L Anion Gap 15 H 5-14 MMOL/L Blood Urea Nitrogen 10 7-18 MG/DL Creatinine 0.78 0.60-1.30 MG/DL Estimat Glomerular Filtration Rate > 60 BUN/Creatinine Ratio 13 Glucose Level 114 H 70-105 MG/DL Calcium Level 8.7 8.5-10.1 MG/DL Corrected Calcium 8.7 8.5-10.1 MG/DL Total Bilirubin 0.5 0.1-1.0 MG/DL Aspartate Amino Transf (AST/SGOT) 203 H 5-34 U/L Alanine Aminotransferase (ALT/SGPT) 191 H 0-55 U/L Alkaline Phosphatase 215 H 40-136 U/L Total Protein 7.0 6.4-8.2 GM/DL Albumin 4.0 3.2-4.5 GM/DL My Orders Orders - JEMAL WALSH DO Comprehensive Metabolic Panel (05/10/18 18:36) Lipase (05/10/18 18:36) Saline Lock/Iv-Start (05/10/18 18:36) Acute Abd Series (05/10/18 18:36) Cbc With Automated Diff (05/10/18 18:36) Ns Iv 1000 Ml (Sodium Chloride 0.9%) (05/10/18 18:45) Morphine Injection (Morphine Injection (05/10/18 18:45) Manual Differential (05/10/18 18:45) Na Phos/Na Biphos Enema (Fleet Enema Miles (05/10/18 19:45) Docusate Sodium Capsule (Colace Capsule) (05/10/18 20:00) Magnesium Citrate Oral Soln (Citrate Of (05/10/18 20:00) Ns Iv 1000 Ml (Sodium Chloride 0.9%) (05/10/18 20:00) Bisacodyl Tablet (Dulcolax Tablet) (05/10/18 20:00) Medications Given in ED Current Medications Medications Dose Ordered Sig/Donita Route Start Time Stop Time Status Last Admin Dose Admin Morphine Sulfate 5 mg ONCE ONCE IVP 05/10/18 18:45 05/10/18 18:46 DC 05/10/18 18:49 5 MG Sodium Biphosphate/ Sodium Phosphate 1 ea ONCE ONCE ND 05/10/18 19:45 05/10/18 19:47 DC 05/10/18 20:06 1 EA Vital Signs/I&O 05/10/18 05/10/18 18:27 21:14 Temp 98.1 Pulse 92 90 Resp 20 18 B/P (MAP) 190/77 (114) 187/85 (119) Pulse Ox 94 95 O2 Delivery Room Air Progress Progress Note : Time: 19:54 Progress Note @1953 - Patient was updated on lab and imaging results. The abdominal x-rays show some air-fluid levels in the suggestion of constipation and possible early small bowel obstruction. I explained the patient that I recommend we give him some medications and an enema as this was also recommended by his general surgeon and we sealed things go. If the patient's discomfort is not significantly decreased after having a bowel movement he may need to be transferred to a facility with a CT scan (CT scanner her is down currently) and may need to be admitted for additional medications, monitoring, and IV fluids overnight. The patient agrees and states that he would like to proceed with the enema until things go. @2044 - The patient was able to have a small bowel movement and states he is feeling slightly better. @2114 - The patient is still having some pain but states that he must be discharged home now. I splinted the patient that he may require a CT scan of his abdomen which we cannot do at this time but that I would be happy to transfer him to another hospital. He states that he declines the transfer, declines any admission, and wants to go home to have a bowel movement. He is stable for discharge at this time. The patient and his both understand that we will be happy to see him again if he changes his mind or if symptoms worsen. I explained the patient that admission could allow him to get additional IV fluids, medications, enemas, and evaluation by a surgeon. He does understand this. Departure Impression Primary Impression: Ileus Additional Impressions: Constipation Abdominal pain Refusal of care by patient Disposition: 01 HOME, SELF-CARE Condition: Stable Departure-Patient Inst. Referrals: VENKATESH TIWARI MD (PCP/Family) Primary Care Physician Patient Instructions: Constipation, Adult (DC) Add. Discharge Instructions: Drink plenty of fluids at home. He is okay to take a mild stool softener like Colace or Dulcolax. He could also take Dulcolax or glycerin suppositories. He may also do home enemas. Call your general surgeon tomorrow. If you change your mind and would like to be admitted and/or to have a CT scan of her abdomen for further evaluation please return to the emergency department immediately. JEMAL WALSH DO May 10, 2018 18:43
[2018-05-10] MEDS ORDERED: NS IV 1000 ML 1,000 ML IV SCH ×2 (18:45→20:00)
[2018-05-10] MEDS ORDERED: morphine INJ 10 MG/ML 1ML (SYR OR VIAL) IVP ONE (18:45)
--- OUTSIDE RECORDS SUMMARY | 2018-05-10 18:45 | XMS REPORT | CCD ---
Author Author [facility] Organization [facility] Address [address] [place] [address] Phone Care Team Providers Care [place]ra [place]ta Roofer Helper Name Role Phone PP Unavailable CCM Unavailable Summary Purpose Interface Exchange Insurance Providers Payer name Policy type / Coverage type Covered democrat ID Effective Begin Date Effective End Date WPS Medicare Part B Medicare Part B [id number] 2017 Unknown AARP Medicare Part B [id number] Unknown Family history Father Diagnosis Age At [facility]: 569573422 Never smoker 12/05/[address]: 341495 Currently drinks alcohol 12/05/2016 Frequency of drinks SNOMED CT: 202606695 1-4 drinks per week 12/05/2016 Has the [...] Fill Instructions temazepam 7.5 mg capsule RxNorm: 483501 1 Capsule(s) PO QHS 02/15/2018 Active temazepam 7.5 mg capsule RxNorm: 216159 1 Capsule(s) PO QHS 01/16/2018 Inactive Restoril 15 mg capsule RxNorm: 080298 1 Capsule(s) PO daily 02/08/2018 Active Restoril 7.5 mg capsule RxNorm: 482231 1 Capsule(s) PO daily 01/07/2018 Inactive Restoril 7.5 mg capsule RxNorm: 976583 1 Capsule(s) PO daily 01/09/2018 Inactive Lexapro 10 mg tablet RxNorm: 480267 1 Tablet(s) PO QHS 201701/31/2018 Active Voltaren 1 % topical gel RxNorm: 909913 4 Gram(s) TOP QID as needed 11/22/2017 No Stop Date Active Viagra 100 mg tablet RxNorm: 967627 1 Tablet(s) PO PRN sexual encounter 10/02/2017 No Stop Date Active promethazine 6.25 mg-codeine 10 mg/5 mL syrup RxNorm: 161123 5-10 Milliliter(s) PO Q6 as needed 10/02/2017 12/20/2017 Inactive Keflex 500 mg capsule RxNorm: 648096 1 Capsule(s) PO TID 201707/25/2017 Inactive Pepcid 20 mg tablet RxNorm: 349286 1 Tablet(s) PO BID 201707/18/2017 Inactive Carafate 1 gram tablet RxNorm: 755179 1 Tablet(s) PO QID 201707/04/2017 Inactive Pepcid 20 mg tablet RxNorm: 831120 1 Tablet(s) PO BID 201706/04/2017 Inactive mupirocin 2 % topical cream RxNorm: 602360 1 Application TOP BID 02/27/2017 03/08/2017 Inactive meclizine 25 mg tablet RxNorm: 762424 1 Tablet(s) PO TID as needed nausea 01/27/2017 03/27/2017 Inactive meclizine 25 mg tablet RxNorm: 949594 1 Tablet(s) PO TID as needed nausea 01/27/2017 01/26/2017 Inactive scopolamine 1 mg over 3 days transdermal patch RxNorm: 534089 1 TD Q72H 01/10/2017 02/26/2017 Inactive ibuprofen 200 mg tablet RxNorm: 841888 1 Tablet(s) PO No Start Date Active vitamin E (dl, acetate) oral RxNorm: oral No Start Date Active Viagra 100 mg tablet RxNorm: 834953 1 Tablet(s) PO PRN sexual encounter No Start Date 10/01/2017 Inactive promethazine 6.25 mg-codeine 10 mg/5 mL syrup RxNorm: 135857 5-10 Milliliter(s) PO Q6 as needed No Start Date 10/01/2017 Inactive Medication Administered No Medication Administered data Immunizations No Immunization data Assessments Condition Codes Effective Dates Generalized anxiety disorder ICD-10: F41.1 ICD-9: 300.00 01/02/2018 Major depressive disorder, single episode, moderate ICD-10: F32.1 ICD-9: 296.22 01/02/2018 Concussion without loss of consciousness, initial encounter ICD-10: S06.0X0A ICD-9: 850.0 12/21/2017 Laceration without foreign body of other part of head, initial encounter ICD-10: S01.81XA ICD-9: 873.44 12/21/2017 Umbilical hernia without obstruction or gangrene [...] Visit Reason For Visit Effective Dates Notes wound follow up 01/02/2018 office procedure 12/21/2017 abdominal pain 11/22/2017 abdominal pain 07/19/2017 abdominal pain 06/05/2017 arthralgia(s) 05/03/2017 nausea 02/27/2017 nausea 01/10/2017 nausea 12/05/2016 Results Observation Observation Code Item Item Code Result Date Comp Metabolic Yyc788 NA 139 mEq/L 12/18/2017 Comp Metabolic Xok216 K 4.6 mEq/L 12/18/2017 Comp Metabolic Ttj180 CL 105 mEq/L 12/18/2017 Comp Metabolic Fas248 CO2 27.0 mEq/L 12/18/2017 Comp Metabolic Wyk325 ANION GAP 12 12/18/2017 Comp Metabolic Vkx898 GLUCOSE 126 mg/dL 12/18/2017 Comp Metabolic Oid125 Creat 0.9 mg/dL 12/18/2017 Comp Metabolic Kgc195 eGFR 89 ml/min/1.73m2 12/18/2017 Comp Metabolic Dvn647 BUN 19 mg/dL 12/18/2017 Comp Metabolic Wdf817 B/C Ratio 21.3 Ratio 12/18/2017 Comp Metabolic Icb783 CALCIUM 8.8 mg/dL 12/18/2017 Comp Metabolic Wes469 ALK PHOS 99 U/L 12/18/2017 Comp Metabolic Jdl853 AST(SGOT) 31 U/L 12/18/2017 Comp Metabolic Ybi861 ALT(SGPT) 46 U/L 12/18/2017 Comp Metabolic Wti277 BILI T 0.5 mg/dL 12/18/2017 Comp Metabolic Brx026 ALBUMIN 3.9 g/dL 12/18/2017 Comp Metabolic Dex510 TPRO 5.8 g/dL 12/18/2017 Comp Metabolic Tpc177 GLOB 2.0 g/dL 12/18/2017 Comp Metabolic Dcp718 A/G Ratio 2.0 Ratio 12/18/2017 Comp Metabolic Igs130 Osmo 281 mOsmo 12/18/2017 Magnesium Ord90 Mag 2.1 mg/dL 12/18/2017 Ldh Ord92 LDH 163 U/L 12/18/2017 Cbc With Differential Ord2 WBC 3.65 K/ul 12/18/2017 Cbc With Differential Ord2 RBC 4.64 M/ul 12/18/2017 Cbc With Differential Ord2 HGB 15.0 g/dl 12/18/2017 Cbc With Differential Ord2 HCT 44.2 % 12/18/2017 Cbc With Differential Ord2 Neut% 76.3 % 12/18/2017 Cbc With Differential Ord2 MCV 95.3 fl 12/18/2017 Cbc With Differential Ord2 Lymph% 14.5 % 12/18/2017 Cbc With Differential Ord2 Stevens% 6.8 % 12/18/2017 Cbc With Differential Ord2 MCH 32.3 pg 12/18/2017 Cbc With Differential Ord2 MCHC 33.9 pg 12/18/2017 Cbc With Differential Ord2 Eos% 1.9 % 12/18/2017 Cbc With Differential Ord2 PLT 170 K/ul 12/18/2017 Cbc With Differential Ord2 Baso% 0.5 % 12/18/2017 Cbc With Differential Ord2 RDW 13.2 % 12/18/2017 Cbc With Differential Ord2 Neut ABS# 2.78 K/ul 12/18/2017 Cbc With Differential Ord2 Lymph ABS# 0.53 K/ul 12/18/2017 Cbc With Differential Ord2 Stevens ABS# 0.3 K/ul 12/18/2017 Cbc With Differential Ord2 Eos ABS# 0.1 K/ul 12/18/2017 Cbc With Differential Ord2 Baso ABS# 0.0 K/ul 12/18/2017 Cbc With Differential Ord2 WBC 3.58 K/ul 09/22/2017 Cbc With Differential Ord2 RBC 4.70 M/ul 09/22/2017 Cbc With Differential Ord2 HGB 15.1 g/dl 09/22/2017 Cbc With Differential Ord2 HCT 44.5 % 09/22/2017 Cbc With Differential Ord2 Neut% 74.0 % 09/22/2017 Cbc With Differential Ord2 MCV 94.7 fl 09/22/2017 Cbc With Differential Ord2 Lymph% 12.8 % 09/22/2017 Cbc With Differential Ord2 MCH 32.1 pg 09/22/2017 Cbc With Differential Ord2 Stevens% 11.2 % 09/22/2017 Cbc With Differential Ord2 Eos% 1.4 % 09/22/2017 Cbc With Differential Ord2 MCHC 33.9 pg 09/22/2017 Cbc With Differential Ord2 Baso% 0.6 % 09/22/2017 Cbc With Differential Ord2 PLT 162 K/ul 09/22/2017 Cbc With Differential Ord2 Neut ABS# 2.65 K/ul 09/22/2017 Cbc With Differential Ord2 RDW 13.8 % 09/22/2017 Cbc With Differential Ord2 Lymph ABS# 0.46 K/ul 09/22/2017 Cbc With Differential Ord2 Stevens ABS# 0.4 K/ul 09/22/2017 Cbc With Differential Ord2 Eos ABS# 0.1 K/ul 09/22/2017 Cbc With Differential Ord2 Baso ABS# 0.0 K/ul 09/22/2017 Comp Metabolic Bgc336 NA 141 mEq/L 09/22/2017 Comp Metabolic Oyf350 K 5.2 mEq/L 09/22/2017 Comp Metabolic Qdf161 CL 106 mEq/L 09/22/2017 Comp Metabolic Dyn093 CO2 29.0 mEq/L 09/22/2017 Comp Metabolic Eoe028 ANION GAP 11 09/22/2017 Comp Metabolic Ncs171 GLUCOSE 115 mg/dL 09/22/2017 Comp Metabolic Lmi845 Creat 0.9 mg/dL 09/22/2017 Comp Metabolic Zfl380 eGFR 88 ml/min/1.73m2 09/22/2017 Comp Metabolic Dgn332 BUN 18 mg/dL 09/22/2017 Comp Metabolic Uxa428 B/C Ratio 20.0 Ratio 09/22/2017 Comp Metabolic Seb468 CALCIUM 8.7 mg/dL 09/22/2017 Comp Metabolic Ftp517 ALK PHOS 103 U/L 09/22/2017 Comp Metabolic Lxb998 AST(SGOT) 32 U/L 09/22/2017 Comp Metabolic Ofn481 ALT(SGPT) 51 U/L 09/22/2017 Comp Metabolic Wwt658 BILI T 0.4 mg/dL 09/22/2017 Comp Metabolic Qac679 ALBUMIN 3.8 g/dL 09/22/2017 Comp Metabolic Udf333 TPRO 5.8 g/dL 09/22/2017 Comp Metabolic Caz955 GLOB 2.0 g/dL 09/22/2017 Comp Metabolic Zqf857 A/G Ratio 1.8 Ratio 09/22/2017 Comp Metabolic Flq248 Osmo 284 mOsmo 09/22/2017 Ldh Ord92 LDH 130 U/L 09/22/2017 Uric Acid Ord77 Uric A 5.5 mg/dL 09/22/2017 Cbc With Differential Ord2 WBC 3.66 K/ul 06/27/2017 Cbc With Differential Ord2 RBC 4.64 M/ul 06/27/2017 Cbc With Differential Ord2 HGB 14.8 g/dl 06/27/2017 Cbc With Differential Ord2 HCT 43.4 % 06/27/2017 Cbc With Differential Ord2 Neut% 74.4 % 06/27/2017 Cbc With Differential Ord2 MCV 93.5 fl 06/27/2017 Cbc With Differential Ord2 Lymph% 13.7 % 06/27/2017 Cbc With Differential Ord2 Stevens% 9.8 % 06/27/2017 Cbc With Differential Ord2 MCH 31.9 pg 06/27/2017 Cbc With Differential Ord2 Eos% 1.6 % 06/27/2017 Cbc With Differential Ord2 MCHC 34.1 pg 06/27/2017 Cbc With Differential Ord2 Baso% 0.5 % 06/27/2017 Cbc With Differential Ord2 PLT 191 K/ul 06/27/2017 Cbc With Differential Ord2 RDW 13.8 % 06/27/2017 Cbc With Differential Ord2 Neut ABS# 2.72 K/ul 06/27/2017 Cbc With Differential Ord2 Lymph ABS# 0.50 K/ul 06/27/2017 Cbc With Differential Ord2 Stevens ABS# 0.4 K/ul 06/27/2017 Cbc With Differential Ord2 Eos ABS# 0.1 K/ul 06/27/2017 Cbc With Differential Ord2 Baso ABS# 0.0 K/ul 06/27/2017 Comp Metabolic Ggf940 NA 140 mEq/L 06/27/2017 Comp Metabolic Gbr284 K 4.6 mEq/L 06/27/2017 Comp Metabolic Xqv412 CL 105 mEq/L 06/27/2017 Comp Metabolic Djn933 CO2 30.0 mEq/L 06/27/2017 Comp Metabolic Clh650 ANION GAP 10 06/27/2017 Comp Metabolic Afo157 GLUCOSE 95 mg/dL 06/27/2017 Comp Metabolic Lnw148 Creat 0.8 mg/dL 06/27/2017 Comp Metabolic Vid689 eGFR 95 ml/min/1.73m2 06/27/2017 Comp Metabolic Xwv842 BUN 14 mg/dL 06/27/2017 Comp Metabolic Gep830 B/C Ratio 16.7 Ratio 06/27/2017 Comp Metabolic Enf370 CALCIUM 9.1 mg/dL 06/27/2017 Comp Metabolic Qxg157 ALK PHOS 129 U/L 06/27/2017 Comp Metabolic Ukz229 AST(SGOT) 29 U/L 06/27/2017 Comp Metabolic Hls715 ALT(SGPT) 33 U/L 06/27/2017 Comp Metabolic Idz482 BILI T 0.5 mg/dL 06/27/2017 Comp Metabolic Wif027 ALBUMIN 3.9 g/dL 06/27/2017 Comp Metabolic Wzz231 TPRO 6.0 g/dL 06/27/2017 Comp Metabolic Evc778 GLOB 2.1 g/dL 06/27/2017 Comp Metabolic Lre725 A/G Ratio 1.9 Ratio 06/27/2017 Comp Metabolic Ovw493 Osmo 280 mOsmo 06/27/2017 Uric Acid Ord77 Uric A 5.1 mg/dL 06/27/2017 Ldh Ord92 LDH 173 U/L 06/27/2017 Celiac Disease Comprehensive 46097 IMMUNOGLOBULIN A-SERUM . 06/20/2017 Celi[facility] Disease [facility] 71843 IMMUNOGLOBULIN A-SERUM 89 mg/dL 06/20/2017 Celi[facility] Disease [facility] 42503 GLIADIN ANTIBODY, IGG . 06/20/2017 Celi[facility] Disease [facility] 16364 GLIADIN ANTIBODY, IGG 3 EU/mL 06/20/2017 Celi[facility] Disease [facility] 66100 GLIADIN ANTIBODY, IGA . 06/20/2017 Celi[facility] Disease [facility] 02764 GLIADIN ANTIBODY, IGA <9 EU/mL 06/20/2017 [facility] 83969 TISSUE TRANSGLUTAMINASE AB, IGG . 06/20/2017 Celi[facility] Disease Comprehensive 71449 TISSUE TRANSGLUTAMINASE-G 5 EU/mL 06/20/2017 Celi[facility] Disease Comprehensive 36018 TISSUE TRANS. AB IGA W/REFLEX . 06/20/2017 Celiac Disease Comprehensive 78562 TISSUE TRANSGLUTAMINASE-A 6 EU/mL 06/20/2017 Allergen Profile, Comprehensive Food 22183 IMMUNOGLOBULIN E 3 IU/mL 06/19/2017 Allergen Profile, Comprehensive Food 99362 BACON'S YEAST <0.10 kU/L 06/19/2017 Allergen Profile, Comprehensive Food 61917 BARLEY <0.10 kU/L 06/19/2017 Allergen Profile, Comprehensive Food 44693 BEEF <0.10 kU/L 04/2017 Allergen Profile, Comprehensive Food 23694 CHICKEN MEAT <0.10 kU/L 06/19/2017 Allergen Profile, Comprehensive Food 31133 CHOCOLATE <0.10 kU/L 06/19/2017 Allergen Profile, Comprehensive Food 05671 COD <0.10 kU/L 04/2017 Allergen Profile, Comprehensive Food 54736 CORN <0.10 kU/L 04/2017 Allergen Profile, Comprehensive Food 52384 EGG WHITE <0.10 kU/L 06/19/2017 Allergen Profile, Comprehensive Food 03187 LETTUCE <0.10 kU/L 06/19/2017 Allergen Profile, Comprehensive Food 86322 MALT <0.10 kU/L 04/2017 Allergen Profile, Comprehensive Food 08354 MILK <0.10 kU/L 04/2017 Allergen Profile, Comprehensive Food 55034 OAT <0.10 kU/L 04/2017 Allergen Profile, Comprehensive Food 18711 ORANGE <0.10 kU/L 06/19/2017 Allergen Profile, Comprehensive Food 42765 PEANUT <0.10 kU/L 06/19/2017 Allergen Profile, Comprehensive Food 95461 PORK <0.10 kU/L 04/2017 Allergen Profile, Comprehensive Food 33625 POTATO <0.10 kU/L 06/19/2017 Allergen Profile, Comprehensive Food 27560 RYE <0.10 kU/L 04/2017 Allergen Profile, Comprehensive Food 51263 SHRIMP <0.10 kU/L 06/19/2017 Allergen Profile, Comprehensive Food 50446 SOYBEAN <0.10 kU/L 06/19/2017 Allergen Profile, Comprehensive Food 88221 TOMATO <0.10 kU/L 06/19/2017 Allergen Profile, Comprehensive Food 76697 WALNUT <0.10 kU/L 06/19/2017 Allergen Profile, Comprehensive Food 86909 WHEAT <0.10 kU/L Allergen Profile, Comprehensive Food 29511 STRAWBERRY <0.10 kU/L 06/19/2017 Allergen Profile, Comprehensive Food 53398 ALLERGEN INTERPRETATION 06/19/2017 Testosterone Skn744 Testo 288.8 ng/dL 05/11/2017 C-Reactive Protein Qnt Crqnt CRP 0.3 mg/dl 05/05/2017 Magnesium Ord90 Mag 1.9 mg/dL 05/05/2017 Uric Acid Ord77 Uric A 6.0 mg/dL 05/05/2017 Comp Metabolic Xev719 NA 140 mEq/L 05/05/2017 Comp Metabolic Sjn375 K 4.1 mEq/L 05/05/2017 Comp Metabolic Uts259 CL 106 mEq/L 05/05/2017 Comp Metabolic Svs834 CO2 27.0 mEq/L 05/05/2017 Comp Metabolic Jeq241 ANION GAP 11 05/05/2017 Comp Metabolic Zvl526 GLUCOSE 107 mg/dL 05/05/2017 Comp Metabolic Fwk451 Creat 0.9 mg/dL 05/05/2017 Comp Metabolic Hwc713 eGFR 89 ml/min/1.73m2 05/05/2017 Comp Metabolic Lnv350 BUN 10 mg/dL 05/05/2017 Comp Metabolic Nzs318 B/C Ratio 11.2 Ratio 05/05/2017 Comp Metabolic Wlv786 CALCIUM 8.6 mg/dL 05/05/2017 Comp Metabolic Zsq876 ALK PHOS 96 U/L 05/05/2017 Comp Metabolic Dux669 AST(SGOT) 36 U/L 05/05/2017 Comp Metabolic Knk872 ALT(SGPT) 40 U/L 05/05/2017 Comp Metabolic Zjb726 BILI T 0.3 mg/dL 05/05/2017 Comp Metabolic Jze832 ALBUMIN 3.8 g/dL 05/05/2017 Comp Metabolic Ckd093 TPRO 5.8 g/dL 05/05/2017 Comp Metabolic Jkp341 GLOB 2.0 g/dL 05/05/2017 Comp Metabolic Vyv556 A/G Ratio 1.9 Ratio 05/05/2017 Comp Metabolic Iye352 Osmo 279 mOsmo 05/05/2017 Sed Rate Ord21 ESR 22 mm/hr 05/05/2017 Cbc With Differential Ord2 WBC 2.43 K/ul 05/05/2017 Cbc With Differential Ord2 RBC 4.66 M/ul 05/05/2017 Cbc With Differential Ord2 HGB 14.7 g/dl 05/05/2017 Cbc With Differential Ord2 HCT 43.1 % 05/05/2017 Cbc With Differential Ord2 Neut% 65.4 % 05/05/2017 Cbc With Differential Ord2 MCV 92.5 fl 05/05/2017 Cbc With Differential Ord2 Lymph% 11.1 % 05/05/2017 Cbc With Differential Ord2 Stevens% 20.6 % 05/05/2017 Cbc With Differential Ord2 MCH 31.5 pg 05/05/2017 Cbc With Differential Ord2 MCHC 34.1 pg 05/05/2017 Cbc With Differential Ord2 Eos% 2.5 % 05/05/2017 Cbc With Differential Ord2 Baso% 0.4 % 05/05/2017 Cbc With Differential Ord2 PLT 154 K/ul 05/05/2017 Cbc With Differential Ord2 RDW 13.7 % 05/05/2017 Cbc With Differential Ord2 Neut ABS# 1.59 K/ul 05/05/2017 Cbc With Differential Ord2 Lymph ABS# 0.27 K/ul 05/05/2017 Cbc With Differential Ord2 Stevens ABS# 0.5 K/ul 05/05/2017 Cbc With Differential Ord2 Eos ABS# 0.1 K/ul 05/05/2017 Cbc With Differential Ord2 Baso ABS# 0.0 K/ul 05/05/2017 Uric Acid Ord77 Uric A 6.0 mg/dL 04/25/2017 Magnesium Ord90 Mag 2.2 mg/dL 04/25/2017 Cbc With Differential Ord2 WBC 4.98 [...] 31.8 pg 04/25/2017 Cbc With Differential Ord2 Stevens% 10.2 % 04/25/2017 Cbc With Differential Ord2 [...] 0.32 K/ul 04/25/2017 Cbc With Differential Ord2 Stevens ABS# 0.5 K/ul 04/25/2017 Cbc With Differential Ord2 Eos ABS# 0.1 K/ul 04/25/2017 Cbc With Differential Ord2 Baso ABS# 0.0 K/ul 04/25/2017 Comp Metabolic Ieb885 NA 143 mEq/L 04/25/2017 Comp Metabolic Bap944 K 4.2 mEq/L 04/25/2017 Comp Metabolic Vhm863 CL 108 mEq/L 04/25/2017 Comp Metabolic Zfq713 CO2 30.0 mEq/L 04/25/2017 Comp Metabolic Wzw616 ANION GAP 9 04/25/2017 Comp Metabolic Zhj125 GLUCOSE 80 mg/dL 04/25/2017 Comp Metabolic Jqb794 Creat 0.9 mg/dL 04/25/2017 Comp Metabolic Jfa243 eGFR 84 ml/min/1.73m2 04/25/2017 Comp Metabolic Psr165 BUN 16 mg/dL 04/25/2017 Comp Metabolic Hfk880 B/C Ratio 17.0 Ratio 04/25/2017 Comp Metabolic Blg858 CALCIUM 9.0 mg/dL 04/25/2017 Comp Metabolic Fea501 ALK PHOS 93 U/L 04/25/2017 Comp Metabolic Pug781 AST(SGOT) 32 U/L 04/25/2017 Comp Metabolic Ken157 ALT(SGPT) 36 U/L 04/25/2017 Comp Metabolic Gsl291 BILI T 0.5 mg/dL 04/25/2017 Comp Metabolic Nyx436 ALBUMIN 3.9 g/dL 04/25/2017 Comp Metabolic Fqa503 TPRO 6.0 g/dL 04/25/2017 Comp Metabolic Fiy621 GLOB 2.1 g/dL 04/25/2017 Comp Metabolic Rtx071 A/G Ratio 1.8 Ratio 04/25/2017 Comp Metabolic Kaq279 Osmo 285 mOsmo 04/25/2017 Magnesium Ord90 Mag 2.1 mg/dL 04/18/2017 Cbc [...] 32.3 pg 04/18/2017 Cbc With Differential Ord2 Stevens% 9.6 % 04/18/2017 Cbc With Differential Ord2 MCHC 34.4 pg 04/18/2017 Cbc With Differential Ord2 Eos% 2.6 % 04/18/2017 Cbc With Differential Ord2 Baso% 0.5 % 04/18/2017 Cbc With Differential Ord2 PLT 163 K/ul 04/18/2017 Cbc With Differential Ord2 RDW 13.7 % 04/18/2017 Cbc With Differential Ord2 Neut ABS# 3.14 K/ul 04/18/2017 Cbc With Differential Ord2 Lymph ABS# 0.23 K/ul 04/18/2017 Cbc With Differential Ord2 Stevens ABS# 0.4 K/ul 04/18/2017 Cbc With Differential Ord2 Eos ABS# 0.1 K/ul 04/18/2017 Cbc With Differential Ord2 Baso ABS# 0.0 K/ul 04/18/2017 Uric Acid Ord77 Uric A 5.9 mg/dL 04/18/2017 Comp Metabolic Pgt352 NA 142 mEq/L 04/18/2017 Comp Metabolic Lpx414 K 4.3 mEq/L 04/18/2017 Comp Metabolic Ehk647 CL 105 mEq/L 04/18/2017 Comp Metabolic Xee826 CO2 30.0 mEq/L 04/18/2017 Comp Metabolic Qgt531 ANION GAP 11 04/18/2017 Comp Metabolic She798 GLUCOSE 126 mg/dL 04/18/2017 Comp Metabolic Otu447 Creat 1.0 mg/dL 04/18/2017 Comp Metabolic Hnq661 eGFR 83 ml/min/1.73m2 04/18/2017 Comp Metabolic Est672 BUN 17 mg/dL 04/18/2017 Comp Metabolic Xsi652 B/C Ratio 17.9 Ratio 04/18/2017 Comp Metabolic Wln415 CALCIUM 9.0 mg/dL 04/18/2017 Comp Metabolic Wpj749 ALK PHOS 100 U/L 04/18/2017 Comp Metabolic Yew970 AST(SGOT) 27 U/L 04/18/2017 Comp Metabolic Jqe006 ALT(SGPT) 36 U/L 04/18/2017 Comp Metabolic Aoa390 BILI T 0.5 mg/dL 04/18/2017 Comp Metabolic Ifz863 ALBUMIN 3.8 g/dL 04/18/2017 Comp Metabolic Cdu294 TPRO 6.0 g/dL 04/18/2017 Comp Metabolic Grr502 GLOB 2.2 g/dL 04/18/2017 Comp Metabolic Alm492 A/G Ratio 1.8 Ratio 04/18/2017 Comp Metabolic Rox396 Osmo 286 mOsmo 04/18/2017 Comp Metabolic Tsn220 NA 141 mEq/L 03/30/2017 Comp Metabolic Int075 K 4.7 mEq/L 03/30/2017 Comp Metabolic Pmz926 CL 106 mEq/L 03/30/2017 Comp Metabolic Jrk863 CO2 28.0 mEq/L 03/30/2017 Comp Metabolic Ilv483 ANION GAP 12 03/30/2017 Comp Metabolic Nyx487 GLUCOSE 81 mg/dL 03/30/2017 Comp Metabolic Qke797 Creat 1.0 mg/dL 03/30/2017 Comp Metabolic Heo383 eGFR 80 ml/min/1.73m2 03/30/2017 Comp Metabolic Mxw796 BUN 17 mg/dL 03/30/2017 Comp Metabolic Khm709 B/C Ratio 17.3 Ratio 03/30/2017 Comp Metabolic Ksk120 CALCIUM 8.9 mg/dL 03/30/2017 Comp Metabolic Dox858 ALK PHOS 106 U/L 03/30/2017 Comp Metabolic Wxy108 AST(SGOT) 52 U/L 03/30/2017 Comp Metabolic Ccy256 ALT(SGPT) 54 U/L 03/30/2017 Comp Metabolic Msc745 BILI T 0.4 mg/dL 03/30/2017 Comp Metabolic Tkv845 ALBUMIN 3.8 g/dL 03/30/2017 Comp Metabolic Bmu852 TPRO 6.2 g/dL 03/30/2017 Comp Metabolic Wah772 GLOB 2.4 g/dL 03/30/2017 Comp Metabolic Omu346 A/G Ratio 1.6 Ratio 03/30/2017 Comp Metabolic Rrz721 Osmo 282 mOsmo 03/30/2017 Uric Acid Ord77 Uric A 5.0 mg/dL 03/30/2017 Cbc With Differential Ord2 WBC 6.69 K/ul 03/30/2017 Cbc With Differential Ord2 RBC 4.65 M/ul 03/30/2017 Cbc With Differential Ord2 HGB 14.9 g/dl 03/30/2017 Cbc With Differential Ord2 Neut% 79.4 % 03/30/2017 Cbc With Differential Ord2 HCT 43.4 % 03/30/2017 Cbc With Differential Ord2 Lymph% 6.3 % 03/30/2017 Cbc With Differential Ord2 MCV 93.3 fl 03/30/2017 Cbc With Differential Ord2 Stevens% 12.1 % 03/30/2017 Cbc With Differential Ord2 MCH 32.0 pg 03/30/2017 Cbc With Differential Ord2 Eos% 1.8 % 03/30/2017 Cbc With Differential Ord2 MCHC 34.3 pg 03/30/2017 Cbc With Differential Ord2 PLT 175 K/ul 03/30/2017 Cbc With Differential Ord2 Baso% 0.4 % 03/30/2017 Cbc With Differential Ord2 RDW 13.6 % 03/30/2017 Cbc With Differential Ord2 Neut ABS# 5.31 K/ul 03/30/2017 Cbc With Differential Ord2 Lymph ABS# 0.42 K/ul 03/30/2017 Cbc With Differential Ord2 Stevens ABS# 0.8 K/ul 03/30/2017 Cbc With Differential Ord2 Eos ABS# 0.1 K/ul 03/30/2017 Cbc With Differential Ord2 Baso ABS# 0.0 K/ul 03/30/2017 Magnesium Ord90 Mag 2.2 mg/dL 03/30/2017 Cbc With Differential Ord2 WBC 5.12 K/ul 03/23/2017 Cbc With Differential Ord2 RBC 4.88 M/ul 03/23/2017 Cbc With Differential Ord2 HGB 15.6 g/dl 03/23/2017 Cbc With Differential Ord2 HCT 45.9 % 03/23/2017 Cbc With Differential Ord2 Neut% 81.0 % 03/23/2017 Cbc With Differential Ord2 Lymph% 6.1 % 03/23/2017 Cbc With Differential Ord2 MCV 94.1 fl 03/23/2017 Cbc With Differential Ord2 Stevens% 10.7 % 03/23/2017 Cbc With Differential Ord2 [...] 0.31 K/ul 03/23/2017 Cbc With Differential Ord2 Stevens ABS# 0.6 K/ul 03/23/2017 Cbc With Differential Ord2 Eos ABS# 0.1 K/ul 03/23/2017 Cbc With Differential Ord2 Baso ABS# 0.0 K/ul 03/23/2017 Comp Metabolic Phq978 NA 140 mEq/L 03/23/2017 Comp Metabolic Jfu652 K 4.4 mEq/L 03/23/2017 Comp Metabolic Yfq754 CL 105 mEq/L 03/23/2017 Comp Metabolic Xxv781 CO2 30.0 mEq/L 03/23/2017 Comp Metabolic Mpz671 ANION GAP 9 03/23/2017 Comp Metabolic Dus847 GLUCOSE 75 mg/dL 03/23/2017 Comp Metabolic Cmt472 Creat 0.9 mg/dL 03/23/2017 Comp Metabolic Zqo795 eGFR 87 ml/min/1.73m2 03/23/2017 Comp Metabolic Bwk349 BUN 17 mg/dL 03/23/2017 Comp Metabolic Suz028 B/C Ratio 18.7 Ratio 03/23/2017 Comp Metabolic Qxq234 CALCIUM 9.0 mg/dL 03/23/2017 Comp Metabolic Mpg675 ALK PHOS 91 U/L 03/23/2017 Comp Metabolic Xjy580 AST(SGOT) 27 U/L 03/23/2017 Comp Metabolic Twz548 ALT(SGPT) 30 U/L 03/23/2017 Comp Metabolic Nyo408 BILI T 0.4 mg/dL 03/23/2017 Comp Metabolic Wnm626 ALBUMIN 3.8 g/dL 03/23/2017 Comp Metabolic Gjf699 TPRO 6.1 g/dL 03/23/2017 Comp Metabolic Ang167 GLOB 2.3 g/dL 03/23/2017 Comp Metabolic Xvc146 A/G Ratio 1.7 Ratio 03/23/2017 Comp Metabolic Hlu434 Osmo 280 mOsmo 03/23/2017 Uric Acid Ord77 Uric A 5.0 mg/dL 03/23/2017 Magnesium Ord90 Mag 2.0 mg/dL 03/23/2017 Uric Acid Ord77 Uric A 4.4 mg/dL 03/06/2017 Comp Metabolic Mgo434 NA 143 mEq/L 03/06/2017 Comp Metabolic Zoc705 K 4.1 mEq/L 03/06/2017 Comp Metabolic Gur729 CL 107 mEq/L 03/06/2017 Comp Metabolic Yvq425 CO2 29.0 mEq/L 03/06/2017 Comp Metabolic Tzy979 ANION GAP 11 03/06/2017 Comp Metabolic Kuw391 GLUCOSE 129 mg/dL 03/06/2017 Comp Metabolic Hcd266 Creat 0.9 mg/dL 03/06/2017 Comp Metabolic Trl951 eGFR 88 ml/min/1.73m2 03/06/2017 Comp Metabolic Ekh896 BUN 15 mg/dL 03/06/2017 Comp Metabolic Zfu396 B/C Ratio 16.7 Ratio 03/06/2017 Comp Metabolic Wgw905 CALCIUM 8.7 mg/dL 03/06/2017 Comp Metabolic Uao546 ALK PHOS 99 U/L 03/06/2017 Comp Metabolic Iop323 AST(SGOT) 29 U/L 03/06/2017 Comp Metabolic Ooq796 ALT(SGPT) 30 U/L 03/06/2017 Comp Metabolic Vad309 BILI T 0.4 mg/dL 03/06/2017 Comp Metabolic Afy673 ALBUMIN 3.8 g/dL 03/06/2017 Comp Metabolic Ure285 TPRO 5.9 g/dL 03/06/2017 Comp Metabolic Jul543 GLOB 2.1 g/dL 03/06/2017 Comp Metabolic Pgn052 A/G Ratio 1.9 Ratio 03/06/2017 Comp Metabolic Dbj336 Osmo 288 mOsmo 03/06/2017 Magnesium Ord90 Mag 2.1 mg/dL 03/06/2017 Cbc With Differential Ord2 WBC 4.28 K/ul 03/06/2017 Cbc With Differential Ord2 RBC 4.63 M/ul 03/06/2017 Cbc With Differential Ord2 HGB 14.7 g/dl 03/06/2017 Cbc With Differential Ord2 HCT 43.5 % 03/06/2017 Cbc With Differential Ord2 Neut% 77.7 % 03/06/2017 Cbc With Differential Ord2 MCV 94.0 fl 03/06/2017 Cbc With Differential Ord2 Lymph% 7.7 % 03/06/2017 Cbc With Differential Ord2 MCH 31.7 pg 03/06/2017 Cbc With Differential Ord2 Stevens% 11.4 % 03/06/2017 Cbc With Differential Ord2 MCHC [...] 0.33 K/ul 03/06/2017 Cbc With Differential Ord2 Stevens ABS# 0.5 K/ul 03/06/2017 Cbc With Differential Ord2 Eos ABS# 0.1 K/ul 03/06/2017 Cbc With Differential Ord2 Baso ABS# 0.0 K/ul 03/06/2017 Cbc With Differential Ord2 WBC 6.05 K/ul 02/27/2017 Cbc With Differential Ord2 RBC 4.58 M/ul 02/27/2017 Cbc With Differential Ord2 HGB 14.7 g/dl 02/27/2017 Cbc With Differential Ord2 HCT 43.1 % 02/27/2017 Cbc With Differential Ord2 Neut% 81.9 % 02/27/2017 Cbc With Differential Ord2 MCV 94.1 fl 02/27/2017 Cbc With Differential Ord2 Lymph% 5.3 % 02/27/2017 Cbc With Differential Ord2 MCH 32.1 pg 02/27/2017 Cbc With Differential Ord2 Stevens% 10.1 % 02/27/2017 Cbc With Differential Ord2 MCHC 34.1 pg 02/27/2017 Cbc With Differential Ord2 Eos% 2.0 % 02/27/2017 Cbc With Differential Ord2 PLT 190 K/ul 02/27/2017 Cbc With Differential Ord2 Baso% 0.7 % 02/27/2017 Cbc With Differential Ord2 RDW 13.9 % 02/27/2017 Cbc With Differential Ord2 Neut ABS# 4.96 K/ul 02/27/2017 Cbc With Differential Ord2 Lymph ABS# 0.32 K/ul 02/27/2017 Cbc With Differential Ord2 Stevens ABS# 0.6 K/ul 02/27/2017 Cbc With Differential Ord2 Eos ABS# 0.1 K/ul 02/27/2017 Cbc With Differential Ord2 Baso ABS# 0.0 K/ul 02/27/2017 Comp Metabolic Doc344 NA 141 mEq/L 02/27/2017 Comp Metabolic Dgg117 K 4.5 mEq/L 02/27/2017 Comp Metabolic Jpf211 CL 105 mEq/L 02/27/2017 Comp Metabolic Bdf557 CO2 30.0 mEq/L 02/27/2017 Comp Metabolic Jxp169 ANION GAP 11 02/27/2017 Comp Metabolic Liz579 GLUCOSE 73 mg/dL 02/27/2017 Comp Metabolic Lqk307 Creat 0.9 mg/dL 02/27/2017 Comp Metabolic Emv304 eGFR 87 ml/min/1.73m2 02/27/2017 Comp Metabolic Cck887 BUN 17 mg/dL 02/27/2017 Comp Metabolic Pqa203 B/C Ratio 18.7 Ratio 02/27/2017 Comp Metabolic Tvn516 CALCIUM 8.8 mg/dL 02/27/2017 Comp Metabolic Lgs878 ALK PHOS 93 U/L 02/27/2017 Comp Metabolic Wqv658 AST(SGOT) 31 U/L 02/27/2017 Comp Metabolic Yna603 ALT(SGPT) 35 U/L 02/27/2017 Comp Metabolic Eto061 BILI T 0.4 mg/dL 02/27/2017 Comp Metabolic Scb532 ALBUMIN 3.9 g/dL 02/27/2017 Comp Metabolic Iaz457 TPRO 5.9 g/dL 02/27/2017 Comp Metabolic Kgv308 GLOB 2.0 g/dL 02/27/2017 Comp Metabolic Ece828 A/G Ratio 2.0 Ratio 02/27/2017 Comp Metabolic Zuj653 Osmo 281 mOsmo 02/27/2017 Magnesium Ord90 Mag 2.2 mg/dL 02/27/2017 Uric Acid Ord77 Uric A 5.5 mg/dL 02/27/2017 Cbc With Differential Ord2 WBC 5.58 K/ul 02/21/2017 Cbc With Differential Ord2 RBC 4.78 M/ul 02/21/2017 Cbc With Differential Ord2 HGB 15.3 g/dl 02/21/2017 Cbc With Differential Ord2 HCT 44.6 % 02/21/2017 Cbc With Differential Ord2 Neut% 82.7 % 02/21/2017 Cbc With Differential Ord2 MCV 93.3 fl 02/21/2017 Cbc With Differential Ord2 Lymph% 5.6 % 02/21/2017 Cbc With Differential Ord2 Stevens% 9.0 % 02/21/2017 Cbc With Differential Ord2 MCH 32.0 pg 02/21/2017 Cbc With Differential Ord2 MCHC 34.3 pg 02/21/2017 Cbc With Differential Ord2 Eos% 2.5 % 02/21/2017 Cbc With Differential Ord2 Baso% 0.2 % 02/21/2017 Cbc With Differential Ord2 PLT 191 K/ul 02/21/2017 Cbc With Differential Ord2 Neut ABS# 4.62 K/ul 02/21/2017 Cbc With Differential Ord2 RDW 14.1 % 02/21/2017 Cbc With Differential Ord2 Lymph ABS# 0.31 K/ul 02/21/2017 Cbc With Differential Ord2 Stevens ABS# 0.5 K/ul 02/21/2017 Cbc With Differential Ord2 Eos ABS# 0.1 K/ul 02/21/2017 Cbc With Differential Ord2 Baso ABS# 0.0 K/ul 02/21/2017 Uric Acid Ord77 Uric A 5.0 mg/dL 02/21/2017 Comp Metabolic Ykh443 NA 134 mEq/L 02/21/2017 Comp Metabolic Xtj502 K 4.3 mEq/L 02/21/2017 Comp Metabolic Bee538 CL 100 mEq/L 02/21/2017 Comp Metabolic Tnh278 CO2 28.0 mEq/L 02/21/2017 Comp Metabolic Ylz883 ANION GAP 10 02/21/2017 Comp Metabolic Mha561 GLUCOSE 130 mg/dL 02/21/2017 Comp Metabolic Vji266 Creat 1.0 mg/dL 02/21/2017 Comp Metabolic Fvo144 eGFR 77 ml/min/1.73m2 02/21/2017 Comp Metabolic Tex746 BUN 17 mg/dL 02/21/2017 Comp Metabolic Vrs270 B/C Ratio 16.8 Ratio 02/21/2017 Comp Metabolic Bbj759 CALCIUM 9.1 mg/dL 02/21/2017 Comp Metabolic Pss873 ALK PHOS 92 U/L 02/21/2017 Comp Metabolic Yci040 AST(SGOT) 23 U/L 02/21/2017 Comp Metabolic Ids315 ALT(SGPT) 29 U/L 02/21/2017 Comp Metabolic Mmp052 BILI T 0.3 mg/dL 02/21/2017 Comp Metabolic Pxz457 ALBUMIN 3.9 g/dL 02/21/2017 Comp Metabolic Goa912 TPRO 6.1 g/dL 02/21/2017 Comp Metabolic Bue349 GLOB 2.2 g/dL 02/21/2017 Comp Metabolic Wiy017 A/G Ratio 1.8 Ratio 02/21/2017 Comp Metabolic Kch852 Osmo 272 mOsmo 02/21/2017 Magnesium Ord90 Mag 2.2 mg/dL 02/21/2017 Magnesium Ord90 Mag 2.1 mg/dL 02/07/2017 Cbc With Differential Ord2 WBC 4.24 K/ul 02/07/2017 Cbc With Differential Ord2 RBC 4.67 M/ul 02/07/2017 Cbc With Differential Ord2 HGB 14.9 g/dl 02/07/2017 Cbc With Differential Ord2 HCT 43.6 % 02/07/2017 Cbc With Differential Ord2 Neut% 73.8 % 02/07/2017 Cbc With Differential Ord2 Lymph% 10.4 % 02/07/2017 Cbc With Differential Ord2 MCV 93.4 fl 02/07/2017 Cbc With Differential Ord2 Stevens% 12.0 % 02/07/2017 Cbc With Differential Ord2 [...] 0.44 K/ul 02/07/2017 Cbc With Differential Ord2 Stevens ABS# 0.5 K/ul 02/07/2017 Cbc With Differential Ord2 Eos ABS# 0.1 K/ul 02/07/2017 Cbc With Differential Ord2 Baso ABS# 0.0 K/ul 02/07/2017 Comp Metabolic Anv732 NA 139 mEq/L 02/07/2017 Comp Metabolic Nus027 K 4.6 mEq/L 02/07/2017 Comp Metabolic Tgf123 CL 106 mEq/L 02/07/2017 Comp Metabolic Jfs840 CO2 29.0 mEq/L 02/07/2017 Comp Metabolic Tgr794 ANION GAP 9 02/07/2017 Comp Metabolic Lqj507 GLUCOSE 99 mg/dL 02/07/2017 Comp Metabolic Twh704 Creat 0.9 mg/dL 02/07/2017 Comp Metabolic Yri315 eGFR 92 ml/min/1.73m2 02/07/2017 Comp Metabolic Hvv327 BUN 19 mg/dL 02/07/2017 Comp Metabolic Dao649 B/C Ratio 21.8 Ratio 02/07/2017 Comp Metabolic Hdp922 CALCIUM 8.8 mg/dL 02/07/2017 Comp Metabolic Jau458 ALK PHOS 81 U/L 02/07/2017 Comp Metabolic Tvf505 AST(SGOT) 22 U/L 02/07/2017 Comp Metabolic Pzx677 ALT(SGPT) 24 U/L 02/07/2017 Comp Metabolic Psl688 BILI T 0.3 mg/dL 02/07/2017 Comp Metabolic Wit402 ALBUMIN 3.9 g/dL 02/07/2017 Comp Metabolic Vre425 TPRO 5.8 g/dL 02/07/2017 Comp Metabolic Zoe172 GLOB 1.9 g/dL 02/07/2017 Comp Metabolic Ype239 A/G Ratio 2.0 Ratio 02/07/2017 Comp Metabolic Fzv998 Osmo 280 mOsmo 02/07/2017 Uric Acid Ord77 Uric A 4.2 mg/dL 02/07/2017 Cbc With Differential Ord2 WBC 7.12 K/ul 01/31/2017 Cbc With Differential Ord2 RBC 4.64 M/ul 01/31/2017 Cbc With Differential Ord2 HGB 14.8 g/dl 01/31/2017 Cbc With Differential Ord2 Neut% 85.0 % 01/31/2017 Cbc With Differential Ord2 HCT 43.8 % 01/31/2017 Cbc With Differential Ord2 MCV 94.4 fl 01/31/2017 Cbc With Differential Ord2 Lymph% 5.3 % 01/31/2017 Cbc With Differential Ord2 MCH 31.9 pg 01/31/2017 Cbc With Differential Ord2 Stevens% 7.9 % 01/31/2017 Cbc With Differential Ord2 Eos% 1.7 % 01/31/2017 Cbc With Differential Ord2 MCHC 33.8 pg 01/31/2017 Cbc With Differential Ord2 PLT 173 K/ul 01/31/2017 Cbc With Differential Ord2 Baso% 0.1 % 01/31/2017 Cbc With Differential Ord2 Neut ABS# 6.05 K/ul 01/31/2017 Cbc With Differential Ord2 RDW 14.5 % 01/31/2017 Cbc With Differential Ord2 Lymph ABS# 0.38 K/ul 01/31/2017 Cbc With Differential Ord2 Stevens ABS# 0.6 K/ul 01/31/2017 Cbc With Differential Ord2 Eos ABS# 0.1 K/ul 01/31/2017 Cbc With Differential Ord2 Baso ABS# 0.0 K/ul 01/31/2017 Magnesium Ord90 Mag 2.1 mg/dL 01/31/2017 Uric Acid Ord77 Uric A 4.9 mg/dL 01/31/2017 Comp Metabolic Tbl898 NA 142 mEq/L 01/31/2017 Comp Metabolic Eeh169 K 4.7 mEq/L 01/31/2017 Comp Metabolic Yco222 CL 106 mEq/L 01/31/2017 Comp Metabolic Liq683 CO2 32.0 mEq/L 01/31/2017 Comp Metabolic Rxh097 ANION GAP 9 01/31/2017 Comp Metabolic Jrm261 GLUCOSE 93 mg/dL 01/31/2017 Comp Metabolic Iml580 Creat 1.0 mg/dL 01/31/2017 Comp Metabolic Vgg130 eGFR 83 ml/min/1.73m2 01/31/2017 Comp Metabolic Fot116 BUN 20 mg/dL 01/31/2017 Comp Metabolic Ugx037 B/C Ratio 21.1 Ratio 01/31/2017 Comp Metabolic Cqi723 CALCIUM 9.1 mg/dL 01/31/2017 Comp Metabolic Fig291 ALK PHOS 80 U/L 01/31/2017 Comp Metabolic Prn127 AST(SGOT) 22 U/L 01/31/2017 Comp Metabolic Qdz197 ALT(SGPT) 24 U/L 01/31/2017 Comp Metabolic Msk326 BILI T 0.4 mg/dL 01/31/2017 Comp Metabolic Hag582 ALBUMIN 4.0 g/dL 01/31/2017 Comp Metabolic Mdb512 TPRO 6.0 g/dL 01/31/2017 Comp Metabolic Khl755 GLOB 2.1 g/dL 01/31/2017 Comp Metabolic Nxb375 A/G Ratio 1.9 Ratio 01/31/2017 Comp Metabolic Nep954 Osmo 285 mOsmo 01/31/2017 Comp Metabolic Ukc099 NA 141 mEq/L 01/23/2017 Comp Metabolic Zrs975 K 4.4 mEq/L 01/23/2017 Comp Metabolic Bbz499 CL 104 mEq/L 01/23/2017 Comp Metabolic Eak830 CO2 31.0 mEq/L 01/23/2017 Comp Metabolic Hoa883 ANION GAP 10 01/23/2017 Comp Metabolic Lga279 GLUCOSE 109 mg/dL 01/23/2017 Comp Metabolic Rnw911 Creat 1.1 mg/dL 01/23/2017 Comp Metabolic Vxr001 eGFR 71 ml/min/1.73m2 01/23/2017 Comp Metabolic Tnq954 BUN 22 mg/dL 01/23/2017 Comp Metabolic Qoy024 B/C Ratio 20.4 Ratio 01/23/2017 Comp Metabolic Rpz589 CALCIUM 9.1 mg/dL 01/23/2017 Comp Metabolic Qrt258 ALK PHOS 76 U/L 01/23/2017 Comp Metabolic Sft791 AST(SGOT) 22 U/L 01/23/2017 Comp Metabolic Uss732 ALT(SGPT) 22 U/L 01/23/2017 Comp Metabolic Eab745 BILI T 0.4 mg/dL 01/23/2017 Comp Metabolic Zzm594 ALBUMIN 3.8 g/dL 01/23/2017 Comp Metabolic Jyy018 TPRO 5.9 g/dL 01/23/2017 Comp Metabolic Tix682 GLOB 2.1 g/dL 01/23/2017 Comp Metabolic Dtm271 A/G Ratio 1.8 Ratio 01/23/2017 Comp Metabolic Idy273 Osmo 285 mOsmo 01/23/2017 Cbc With Differential Ord2 WBC 5.85 K/ul 01/23/2017 Cbc With Differential Ord2 RBC 4.39 M/ul 01/23/2017 Cbc With Differential Ord2 HGB 14.1 g/dl 01/23/2017 Cbc With Differential Ord2 HCT 41.5 % 01/23/2017 Cbc With Differential Ord2 Neut% 82.2 % 01/23/2017 Cbc With Differential Ord2 Lymph% 7.2 % 01/23/2017 Cbc With Differential Ord2 MCV 94.5 fl 01/23/2017 Cbc With Differential Ord2 Stevens% 8.9 % 01/23/2017 Cbc With Differential Ord2 MCH 32.1 pg 01/23/2017 Cbc With Differential Ord2 MCHC 34.0 pg 01/23/2017 Cbc With Differential Ord2 Eos% 1.5 % 01/23/2017 Cbc With Differential Ord2 PLT 177 K/ul 01/23/2017 Cbc With Differential Ord2 Baso% 0.2 % 01/23/2017 Cbc With Differential Ord2 Neut ABS# 4.81 K/ul 01/23/2017 Cbc With Differential Ord2 RDW 14.5 % 01/23/2017 Cbc With Differential Ord2 Lymph ABS# 0.42 K/ul 01/23/2017 Cbc With Differential Ord2 Stevens ABS# 0.5 K/ul 01/23/2017 Cbc With Differential Ord2 Eos ABS# 0.1 K/ul 01/23/2017 Cbc With Differential Ord2 Baso ABS# 0.0 K/ul 01/23/2017 Magnesium Ord90 Mag 2.0 mg/dL 01/23/2017 Uric Acid Ord77 Uric A 5.4 mg/dL 01/23/2017 Testosterone Soj634 Testo 321.3 ng/dL 01/10/2017 Comp Metabolic Jmh038 NA 141 mEq/L 01/10/2017 Comp Metabolic Saz935 K 4.8 mEq/L 01/10/2017 Comp Metabolic Jtl642 CL 106 mEq/L 01/10/2017 Comp Metabolic Ccy785 CO2 29.0 mEq/L 01/10/2017 Comp Metabolic Mpf298 ANION GAP 11 01/10/2017 Comp Metabolic Qcj207 GLUCOSE 73 mg/dL 01/10/2017 Comp Metabolic Hme095 Creat 0.9 mg/dL 01/10/2017 Comp Metabolic Zef830 eGFR 93 ml/min/1.73m2 01/10/2017 Comp Metabolic Kxc201 BUN 19 mg/dL 01/10/2017 Comp Metabolic Lhn131 B/C Ratio 22.1 Ratio 01/10/2017 Comp Metabolic Xbt116 CALCIUM 9.0 mg/dL 01/10/2017 Comp Metabolic Pwn612 ALK PHOS 80 U/L 01/10/2017 Comp Metabolic Rue129 AST(SGOT) 24 U/L 01/10/2017 Comp Metabolic Unm701 ALT(SGPT) 28 U/L 01/10/2017 Comp Metabolic Ltz161 BILI T 0.4 mg/dL 01/10/2017 Comp Metabolic Nia666 ALBUMIN 3.8 g/dL 01/10/2017 Comp Metabolic Paz485 TPRO 5.9 g/dL 01/10/2017 Comp Metabolic Gyx119 GLOB 2.1 g/dL 01/10/2017 Comp Metabolic Ugp664 A/G Ratio 1.9 Ratio 01/10/2017 Comp Metabolic Rxt299 Osmo 282 mOsmo 01/10/2017 Cbc With Differential [...] 31.9 pg 01/10/2017 Cbc With Differential Ord2 Stevens% 9.6 % 01/10/2017 Cbc With Differential Ord2 MCHC 33.7 pg 01/10/2017 Cbc With Differential Ord2 Eos% 1.9 % 01/10/2017 Cbc With Differential Ord2 PLT 201 K/ul 01/10/2017 Cbc With Differential Ord2 Baso% 0.3 % 01/10/2017 Cbc With Differential Ord2 Neut ABS# 5.05 K/ul 01/10/2017 Cbc With Differential Ord2 RDW 14.6 % 01/10/2017 Cbc With Differential Ord2 Lymph ABS# 0.62 K/ul 01/10/2017 Cbc With Differential Ord2 Stevens ABS# 0.6 K/ul 01/10/2017 Cbc With Differential [...] 31.8 pg 01/03/2017 Cbc With Differential Ord2 Stevens% 8.6 % 01/03/2017 Cbc With Differential Ord2 Eos% 1.9 % 01/03/2017 Cbc With Differential Ord2 MCHC 33.9 pg 01/03/2017 Cbc With Differential Ord2 PLT 172 K/ul 01/03/2017 Cbc With Differential Ord2 Baso% 0.5 % 01/03/2017 Cbc With Differential Ord2 RDW 14.3 % 01/03/2017 Cbc With Differential Ord2 Neut ABS# 5.09 K/ul 01/03/2017 Cbc With Differential Ord2 Lymph ABS# 0.42 K/ul 01/03/2017 Cbc With Differential Ord2 Stevens ABS# 0.5 K/ul 01/03/2017 Cbc With Differential Ord2 Eos ABS# 0.1 K/ul 01/03/2017 Cbc With Differential Ord2 Baso ABS# 0.0 K/ul 01/03/2017 Comp Metabolic Row336 NA 140 mEq/L 01/03/2017 Comp Metabolic Iar042 K 4.7 mEq/L 01/03/2017 Comp Metabolic Bvz580 CL 106 mEq/L 01/03/2017 Comp Metabolic Ngk887 CO2 28.0 mEq/L 01/03/2017 Comp Metabolic Ijh081 ANION GAP 11 01/03/2017 Comp Metabolic Cer032 GLUCOSE 126 mg/dL 01/03/2017 Comp Metabolic Qsp500 Creat 0.9 mg/dL 01/03/2017 Comp Metabolic Kpc473 eGFR 88 ml/min/1.73m2 01/03/2017 Comp Metabolic Jdl085 BUN 23 mg/dL 01/03/2017 Comp Metabolic Nyk499 B/C Ratio 25.6 Ratio 01/03/2017 Comp Metabolic Auc978 CALCIUM 8.8 mg/dL 01/03/2017 Comp Metabolic Pbg877 ALK PHOS 73 U/L 01/03/2017 Comp Metabolic Vtu074 AST(SGOT) 25 U/L 01/03/2017 Comp Metabolic Inp793 ALT(SGPT) 30 U/L 01/03/2017 Comp Metabolic Kvf774 BILI T 0.4 mg/dL 01/03/2017 Comp Metabolic Tti248 ALBUMIN 3.9 g/dL 01/03/2017 Comp Metabolic Myd180 TPRO 5.9 g/dL 01/03/2017 Comp Metabolic Usf165 GLOB 2.1 g/dL 01/03/2017 Comp Metabolic Mye536 A/G Ratio 1.9 Ratio 01/03/2017 Comp Metabolic Zfq489 Osmo 285 mOsmo 01/03/2017 Cbc With Differential [...] 31.7 pg 12/12/2016 Cbc With Differential Ord2 Stevens% 8.9 % 12/12/2016 Cbc With Differential Ord2 Eos% 1.7 % 12/12/2016 Cbc With Differential Ord2 MCHC 33.6 pg 12/12/2016 Cbc With Differential Ord2 Baso% 0.8 % 12/12/2016 Cbc With Differential Ord2 PLT 186 K/ul 12/12/2016 Cbc With Differential Ord2 RDW 14.6 % 12/12/2016 Cbc With Differential Ord2 Neut ABS# 4.50 K/ul 12/12/2016 Cbc With Differential Ord2 Lymph ABS# 0.80 K/ul 12/12/2016 Cbc With Differential Ord2 Stevens ABS# 0.5 K/ul 12/12/2016 Cbc With Differential Ord2 Eos ABS# 0.1 K/ul 12/12/2016 Cbc With Differential Ord2 Baso ABS# 0.1 K/ul 12/12/2016 Comp Metabolic Mfo089 NA 140 mEq/L 12/12/2016 Comp Metabolic Kkt902 K 3.8 mEq/L 12/12/2016 Comp Metabolic Zsk883 CL 105 mEq/L 12/12/2016 Comp Metabolic Jlb742 CO2 26.0 mEq/L 12/12/2016 Comp Metabolic Run356 ANION GAP 13 12/12/2016 Comp Metabolic Jng958 GLUCOSE 112 mg/dL 12/12/2016 Comp Metabolic Qaz153 Creat 0.9 mg/dL 12/12/2016 Comp Metabolic Hom815 eGFR 89 ml/min/1.73m2 12/12/2016 Comp Metabolic Xjw114 BUN 16 mg/dL 12/12/2016 Comp Metabolic Faf514 B/C Ratio 18.0 Ratio 12/12/2016 Comp Metabolic Etl394 CALCIUM 8.6 mg/dL 12/12/2016 Comp Metabolic Xkp921 ALK PHOS 80 U/L 12/12/2016 Comp Metabolic Aml055 AST(SGOT) 21 U/L 12/12/2016 Comp Metabolic Yte404 ALT(SGPT) 23 U/L 12/12/2016 Comp Metabolic Rzs155 BILI T 0.4 mg/dL 12/12/2016 Comp Metabolic Vca042 ALBUMIN 3.7 g/dL 12/12/2016 Comp Metabolic Vfk833 TPRO 5.6 g/dL 12/12/2016 Comp Metabolic Owo533 GLOB 1.9 g/dL 12/12/2016 Comp Metabolic Idj191 A/G Ratio 2.0 Ratio 12/12/2016 Comp Metabolic Yys010 Osmo 281 mOsmo 12/12/2016 Cbc With Differential Ord2 WBC 7.85 K/ul 12/05/2016 Cbc With Differential Ord2 RBC 4.66 M/ul 12/05/2016 Cbc With Differential Ord2 HGB 14.6 g/dl 12/05/2016 Cbc With Differential Ord2 Neut% 73.6 % 12/05/2016 Cbc With Differential Ord2 HCT 44.0 % 12/05/2016 Cbc With Differential Ord2 Lymph% 14.8 % 12/05/2016 Cbc With Differential Ord2 MCV 94.4 fl 12/05/2016 Cbc With Differential Ord2 MCH 31.3 pg 12/05/2016 Cbc With Differential Ord2 Stevens% 8.8 % 12/05/2016 Cbc With Differential Ord2 Eos% 2.3 % 12/05/2016 Cbc With Differential Ord2 MCHC 33.2 pg 12/05/2016 Cbc With Differential Ord2 PLT 196 K/ul 12/05/2016 Cbc With Differential Ord2 Baso% 0.5 % 12/05/2016 Cbc With Differential Ord2 Neut ABS# 5.78 K/ul 12/05/2016 Cbc With Differential Ord2 RDW 15.2 % 12/05/2016 Cbc With Differential Ord2 Lymph ABS# 1.16 K/ul 12/05/2016 Cbc With Differential Ord2 Stevens ABS# 0.7 K/ul 12/05/2016 Cbc With Differential Ord2 Eos ABS# 0.2 K/ul 12/05/2016 Cbc With Differential Ord2 Baso ABS# 0.0 K/ul 12/05/2016 Comp Metabolic Udw749 NA 140 mEq/L 12/05/2016 Comp Metabolic Rfs459 K 4.6 mEq/L 12/05/2016 Comp Metabolic Wdq502 CL 104 mEq/L 12/05/2016 Comp Metabolic Iyg385 CO2 29.0 mEq/L 12/05/2016 Comp Metabolic Wdl676 ANION GAP 12 12/05/2016 Comp Metabolic Kpt799 GLUCOSE 93 mg/dL 12/05/2016 Comp Metabolic Syb768 Creat 0.8 mg/dL 12/05/2016 Comp Metabolic Olt304 eGFR 98 ml/min/1.73m2 12/05/2016 Comp Metabolic Gkh128 BUN 20 mg/dL 12/05/2016 Comp Metabolic Iwr572 B/C Ratio 24.4 Ratio 12/05/2016 Comp Metabolic Sbr040 CALCIUM 8.8 mg/dL 12/05/2016 Comp Metabolic Efm322 ALK PHOS 82 U/L 12/05/2016 Comp Metabolic Wjd215 AST(SGOT) 24 U/L 12/05/2016 Comp Metabolic Hxo693 ALT(SGPT) 28 U/L 12/05/2016 Comp Metabolic Xxh190 BILI T 0.4 mg/dL 12/05/2016 Comp Metabolic Wxt497 ALBUMIN 3.9 g/dL 12/05/2016 Comp Metabolic Qlg281 TPRO 5.9 g/dL 12/05/2016 Comp Metabolic Lti865 GLOB 2.0 g/dL 12/05/2016 Comp Metabolic Faw719 A/G Ratio 2.0 Ratio 12/05/2016 Comp Metabolic Tig668 Osmo 282 mOsmo 12/05/2016 Review of Systems System Result Effective Dates Constitutional No recent illness 2017 Constitutional No [...] dentition 07/19/2017 None Full Exam - General 1995 Ears/Nose/Throat [...] No Procedures data Vital Signs Date Vital 01/02/2018 Blood Pressure 1: 130/76 Code : 8480-6 BMI: 29.4 Code : 20562-0 Heart Rate 1 : 90 bpm Height: 6' SpO2: 99% Weight: 217 lbs 12/21/2017 Blood Pressure 1: 142/80 Code : 8480-6 BMI: 29.7 Code : 11618-4 Heart Rate 1 : 74 bpm Height: 6' SpO2: 96% Weight: 219 lbs 11/22/2017 Blood Pressure 1: 130/72 Code : 8480-6 BMI: 29.8 Code : 61120-3 Heart Rate 1 : 53 bpm Height: 6' SpO2: 97% Weight: 220 lbs 07/19/2017 Blood Pressure 1: 142/80 Code : 8480-6 BMI: 30.1 Code : 16266-4 Heart Rate 1 : 60 bpm Height: 6' SpO2: 99% Weight: 222 lbs 06/05/2017 Blood Pressure 1: 136/74 Code : 8480-6 BMI: 30.2 Code : 59188-7 Heart Rate 1 : 59 bpm Height: 6' SpO2: 98% Weight: 223 lbs 05/03/2017 Blood Pressure 1: 128/80 Code : 8480-6 BMI: 30.2 Code : 83974-7 Heart Rate 1 : 79 bpm Height: 6' SpO2: 98% Weight: 223 lbs 02/27/2017 Blood Pressure 1: 126/66 Code : 8480-6 BMI: 30.2 Code : 89712-1 Heart Rate 1 : 61 bpm Height: 6' SpO2: 99% Weight: 223 lbs 01/10/2017 Blood Pressure 1: 136/70 Code : 8480-6 BMI: 30.0 Code : 53354-9 Heart Rate 1 : 62 bpm Height: 6' SpO2: 98% Weight: 221 lbs 8 oz 12/05/2016 Blood Pressure 1: 138/74 Code : 8480-6 BMI: 29.3 Code : 20069-4 Heart Rate 1 : 62 bpm Height: 6' SpO2: 98% Weight: 216 lbs Functional Status No Functional Status data History of Present Illness Symptom Name Status Result Effective Date Notes wound follow up Date of procedure 201701/02/2018 [...] data Encounters Encounter Performer Location Codes Date 33404 EST. PATIENT, LEVEL III Diagnosis: Generalized anxiety disorder[ICD10: F41.1] Diagnosis: Major depressive disorder, single episode, moderate[ICD10: F32.1] [facility] CPT-4: 46082 01/02/2018 ([id number] EST. PATIENT, LEVEL III Diagnosis: Concussion without loss of consciousness, initial encounter[ICD10: S06.0X0A] Diagnosis: Laceration without foreign body of other part of head, initial encounter[ICD10: S01.81XA] Harriet Salomon MD, [facility] CPT-4: 77498 12/21/2017 [id number]) 54629 EST. 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 PATIENT, LEVEL III Diagnosis: Rash and other nonspecific skin eruption[ICD10: R21] Diagnosis: Slow transit constipation[ICD10: K59.01] [facility] CPT-4: 55067 07/19/2017 [id number]) 40245 EST. PATIENT, LEVEL III Diagnosis: Epigastric pain[ICD10: R10.13] Harriet Salomon MD, [facility] CPT- 4: 64593 06/05/2017 [id number]) 64153 EST. PATIENT, LEVEL IV Diagnosis: Umbilical hernia without obstruction or gangrene[ICD10: K42.9] Diagnosis: Chronic lymphocytic leukemia of B-cell type not having achieved remission[ICD10: C91.10] Diagnosis: Pain in left hip[ICD10: M25.552] Diagnosis: Pain in right hip[ICD10: M25.551] Diagnosis: Pain in left knee[ICD10: M25.562] Diagnosis: Pain in right knee[ICD10: M25.561] [facility] CPT-4: 16559 05/03/2017 [id number]) 48447 EST. PATIENT, LEVEL IV Diagnosis: Chronic lymphocytic leukemia of B-cell type not having achieved remission[ICD10: C91.10] Diagnosis: Periumbilical pain[ICD10: R10.33] [facility] CPT-4: 75689 02/27/2017 ([id number]) 19015 EST. 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] Diagnosis: Umbilical hernia without obstruction or gangrene[ICD10: K42.9] [facility] CPT-4: 35823 01/10/2017 ([id number]) OFFICE VISIT, NEW - LEVEL 4 Diagnosis: Umbilical hernia without obstruction or gangrene[ICD10: K42.9] Diagnosis: Periumbilical pain[ICD10: R10.33] Diagnosis: Chronic lymphocytic leukemia of B-cell type not having achieved remission[ICD10: C91.10] Diagnosis: Slow transit constipation[ICD10: K59.01] [facility] CPT-4: 41390 12/05/2016 Plan of Care Planned Activity Notes Codes Status Date Appointment: [phone] [id number] [place] ([facility] min) Moderate 01/02/2018 Patient Education: Patient Medication Summary Completed 01/02/2018 Patient Education: Depression Completed 01/02/2018 [phone] [id number] [place] ([facility] min) Moderate 12/21/2017 Patient Education: Patient Medication Summary Completed 12/21/2017 [facility] [phone] [id number] [place] (15 min) Moderate 11/22/2017 Patient Education: Patient Medication Summary Completed 11/22/2017 [facility] [phone] [id number] [place] ([place] min) Moderate 07/19/2017 Patient Education: Patient Medication Summary Completed 07/19/2017 [facility]: [facility] [phone] [id number] [place] (15 min) Moderate 06/05/2017 Patient Education: Patient Medication Summary Completed 06/05/2017 Patient Education: Patient Medication Summary Completed 05/11/2017 Care Plan: Testosterone add to blood from 05/05 Pending 05/11/2017 [facility]ment: [facility] [phone] [id number] [place] (15 min) Moderate 05/03/2017 Patient Education: Patient Medication Summary Completed 05/03/2017 [facility]ment: [facility] [phone] [id number] (15 min) Moderate 02/27/2017 Patient Education: Patient Medication Summary Completed 02/27/2017 Patient Education: Obesity Completed 02/27/2017 [facility] [phone] [id number] (15 min) Moderate 01/10/2017 Patient Education: Patient Medication Summary Completed 01/10/2017 Patient Education: Obesity Completed 01/10/2017 Care Plan: ASSAY OF TOTAL TESTOSTERONE LOINC : 57912-7 Pending 01/10/2017 [facility]ment: [facility] [phone] [id number] [place] ([facility] min) Moderate 01/02/2017 [facility]ment: [facility] [phone] [id number] [place] New Patient 12/05/2016 Patient Education: Patient Medication Summary Completed 12/05/2016 Instructions No Instructions
--- OUTSIDE RECORDS SUMMARY | 2018-05-10 18:48 | XMS REPORT | CCD ---
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 Name Role Phone PP Unavailable CCM Unavailable Summary Purpose Interface Exchange Insurance Providers Payer name Policy type / Coverage type Covered republican ID Effective Begin Date Effective End Date WPS Medicare Part B Medicare Part B [id number] 2017 Unknown AARP Medicare Part B [id number] Unknown Family history Father Diagnosis Age At Onset brain cancer Unknown Skin cancer Unknown Mother Diagnosis Age At Onset Cancer Unknown Daughter Diagnosis Age At Onset Celiac disease Unknown Social History Social History Element Codes Description Effective Dates Marital status Unknown Single 12/05/2016 Number of children Unknown 2 12/05/2016 Employment Unknown 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/[address]: 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 Never smoker 12/05/[address]: 704816 Currently drinks alcohol 12/05/2016 Frequency of drinks SNOMED CT: 216053205 1-4 drinks per week 12/05/2016 Has the [...] Start Date Stop Date Status Fill Instructions Restoril 7.5 mg capsule RxNorm: 168285 1 Capsule(s) PO daily 02/06/2018 Active Restoril 7.5 mg capsule RxNorm: 613144 1 Capsule(s) PO daily 01/07/2018 Inactive Lexapro 10 mg tablet RxNorm: 166906 1 Tablet(s) PO QHS 201701/31/2018 Active Voltaren 1 % topical gel RxNorm: 807110 4 Gram(s) TOP QID as needed 11/22/2017 No Stop Date Active Viagra 100 mg tablet RxNorm: 527695 1 Tablet(s) PO PRN sexual encounter 10/02/2017 No Stop Date Active promethazine 6.25 mg-codeine 10 mg/5 mL syrup RxNorm: 764384 5-10 Milliliter(s) PO Q6 as needed 10/02/2017 12/20/2017 Inactive Keflex 500 mg capsule RxNorm: 744844 1 Capsule(s) PO TID 201707/25/2017 Inactive Pepcid 20 mg tablet RxNorm: 604034 1 Tablet(s) PO BID 201707/18/2017 Inactive Carafate 1 gram tablet RxNorm: 755161 1 Tablet(s) PO QID 201707/04/2017 Inactive Pepcid 20 mg tablet RxNorm: 337394 1 Tablet(s) PO BID 201706/04/2017 Inactive mupirocin 2 % topical cream RxNorm: 480820 1 Application TOP BID 02/27/2017 03/08/2017 Inactive meclizine 25 mg tablet RxNorm: 240845 1 Tablet(s) PO TID as needed nausea 01/27/2017 03/27/2017 Inactive meclizine 25 mg tablet RxNorm: 146680 1 Tablet(s) PO TID as needed nausea 01/27/2017 01/26/2017 Inactive scopolamine 1 mg over 3 days transdermal patch RxNorm: 862814 1 TD Q72H 01/10/2017 02/26/2017 Inactive ibuprofen 200 mg tablet RxNorm: 763232 1 Tablet(s) PO No Start Date Active vitamin E (dl, acetate) oral RxNorm: oral No Start Date Active Viagra 100 mg tablet RxNorm: 610359 1 Tablet(s) PO PRN sexual encounter No Start Date 10/01/2017 Inactive promethazine 6.25 mg-codeine 10 mg/5 mL syrup RxNorm: 731350 5-10 Milliliter(s) PO Q6 as needed No Start Date 10/01/2017 Inactive Medication Administered No Medication Administered data Immunizations No Immunization data Assessments Condition Codes Effective Dates Generalized anxiety disorder ICD-10: F41.1 ICD-9: 300.00 01/02/2018 Major depressive disorder, single episode, moderate ICD-10: F32.1 ICD-9: 296.22 01/02/2018 Laceration without foreign body of other part [...] Item Item Code Result Date Comp Metabolic Xbl270 NA 139 mEq/L 12/18/2017 Comp Metabolic Jiu836 K 4.6 mEq/L 12/18/2017 Comp Metabolic Yfz677 CL 105 mEq/L 12/18/2017 Comp Metabolic Mcs601 CO2 27.0 mEq/L 12/18/2017 Comp Metabolic Dfp420 ANION GAP 12 12/18/2017 Comp Metabolic Fxr244 GLUCOSE 126 mg/dL 12/18/2017 Comp Metabolic Dqo199 Creat 0.9 mg/dL 12/18/2017 Comp Metabolic Msh991 eGFR 89 ml/min/1.73m2 12/18/2017 Comp Metabolic Hlr008 BUN 19 mg/dL 12/18/2017 Comp Metabolic Rih557 B/C Ratio 21.3 Ratio 12/18/2017 Comp Metabolic Acd880 CALCIUM 8.8 mg/dL 12/18/2017 Comp Metabolic Njg803 ALK PHOS 99 U/L 12/18/2017 Comp Metabolic Ecw367 AST(SGOT) 31 U/L 12/18/2017 Comp Metabolic Pnz325 ALT(SGPT) 46 U/L 12/18/2017 Comp Metabolic Dar983 BILI T 0.5 mg/dL 12/18/2017 Comp Metabolic Wwv065 ALBUMIN 3.9 g/dL 12/18/2017 Comp Metabolic Dem657 TPRO 5.8 g/dL 12/18/2017 Comp Metabolic Vxq172 GLOB 2.0 g/dL 12/18/2017 Comp Metabolic Lor917 A/G Ratio 2.0 Ratio 12/18/2017 Comp Metabolic Nsk098 Osmo 281 mOsmo 12/18/2017 Magnesium Ord90 Mag [...] 32.3 pg 12/18/2017 Cbc With Differential Ord2 [place]% 6.8 % 12/18/2017 Cbc With Differential Ord2 [...] 0.53 K/ul 12/18/2017 Cbc With Differential Ord2 [place] ABS# 0.3 K/ul 12/18/2017 Cbc With Differential [...] 32.1 pg 09/22/2017 Cbc With Differential Ord2 [place]% 11.2 % 09/22/2017 Cbc With Differential Ord2 [...] 0.46 K/ul 09/22/2017 Cbc With Differential Ord2 [place] ABS# 0.4 K/ul 09/22/2017 Cbc With Differential Ord2 Eos ABS# 0.1 K/ul 09/22/2017 Cbc With Differential Ord2 Baso ABS# 0.0 K/ul 09/22/2017 Uric Acid Ord77 Uric A 5.5 mg/dL 09/22/2017 Ldh Ord92 LDH 130 U/L 09/22/2017 Comp Metabolic Vee279 NA 141 mEq/L 09/22/2017 Comp Metabolic Uay413 K 5.2 mEq/L 09/22/2017 Comp Metabolic Epi309 CL 106 mEq/L 09/22/2017 Comp Metabolic Hza522 CO2 29.0 mEq/L 09/22/2017 Comp Metabolic Uyk163 ANION GAP 11 09/22/2017 Comp Metabolic Yga989 GLUCOSE 115 mg/dL 09/22/2017 Comp Metabolic Fdz622 Creat 0.9 mg/dL 09/22/2017 Comp Metabolic Yao935 eGFR 88 ml/min/1.73m2 09/22/2017 Comp Metabolic Geg737 BUN 18 mg/dL 09/22/2017 Comp Metabolic Ffm221 B/C Ratio 20.0 Ratio 09/22/2017 Comp Metabolic Rgb421 CALCIUM 8.7 mg/dL 09/22/2017 Comp Metabolic Ovh308 ALK PHOS 103 U/L 09/22/2017 Comp Metabolic Vts394 AST(SGOT) 32 U/L 09/22/2017 Comp Metabolic Has976 ALT(SGPT) 51 U/L 09/22/2017 Comp Metabolic Yuq278 BILI T 0.4 mg/dL 09/22/2017 Comp Metabolic Nzz343 ALBUMIN 3.8 g/dL 09/22/2017 Comp Metabolic Mzq481 TPRO 5.8 g/dL 09/22/2017 Comp Metabolic Qfh935 GLOB 2.0 g/dL 09/22/2017 Comp Metabolic Msn191 A/G Ratio 1.8 Ratio 09/22/2017 Comp Metabolic Zct821 Osmo 284 mOsmo 09/22/2017 Comp Metabolic Djy514 NA 140 mEq/L 06/27/2017 Comp Metabolic Ubc653 K 4.6 mEq/L 06/27/2017 Comp Metabolic Ckn532 CL 105 mEq/L 06/27/2017 Comp Metabolic Yng289 CO2 30.0 mEq/L 06/27/2017 Comp Metabolic Uyr022 ANION GAP 10 06/27/2017 Comp Metabolic Nox124 GLUCOSE 95 mg/dL 06/27/2017 Comp Metabolic Acl063 Creat 0.8 mg/dL 06/27/2017 Comp Metabolic Gyt336 eGFR 95 ml/min/1.73m2 06/27/2017 Comp Metabolic Ubl023 BUN 14 mg/dL 06/27/2017 Comp Metabolic Vnk299 B/C Ratio 16.7 Ratio 06/27/2017 Comp Metabolic Vvb511 CALCIUM 9.1 mg/dL 06/27/2017 Comp Metabolic Gak359 ALK PHOS 129 U/L 06/27/2017 Comp Metabolic Lwq943 AST(SGOT) 29 U/L 06/27/2017 Comp Metabolic Maz174 ALT(SGPT) 33 U/L 06/27/2017 Comp Metabolic Ngq803 BILI T 0.5 mg/dL 06/27/2017 Comp Metabolic Jyl794 ALBUMIN 3.9 g/dL 06/27/2017 Comp Metabolic Sbm868 TPRO 6.0 g/dL 06/27/2017 Comp Metabolic Vew195 GLOB 2.1 g/dL 06/27/2017 Comp Metabolic Iii844 A/G Ratio 1.9 Ratio 06/27/2017 Comp Metabolic Zvq488 Osmo 280 mOsmo 06/27/2017 Cbc With Differential [...] 13.7 % 06/27/2017 Cbc With Differential Ord2 [place]% 9.8 % 06/27/2017 Cbc With Differential Ord2 [...] 0.50 K/ul 06/27/2017 Cbc With Differential Ord2 [place] ABS# 0.4 K/ul 06/27/2017 Cbc With Differential Ord2 Eos ABS# 0.1 K/ul 06/27/2017 Cbc With Differential Ord2 Baso ABS# 0.0 K/ul 06/27/2017 Ldh Ord92 LDH 173 U/L 06/27/2017 Uric Acid Ord77 Uric A 5.1 mg/dL 06/27/2017 Celiac Disease Comprehensive 67740 IMMUNOGLOBULIN A-SERUM . 06/20/2017 Celiac Disease Comprehensive 71592 IMMUNOGLOBULIN A-SERUM 89 mg/dL 06/20/2017 Celiac Disease Comprehensive 60105 GLIADIN ANTIBODY, IGG . 06/20/2017 Celiac Disease Comprehensive 62469 GLIADIN ANTIBODY, IGG 3 EU/mL 06/20/2017 Celiac Disease Comprehensive 58542 GLIADIN ANTIBODY, IGA . 06/20/2017 Celiac Disease Comprehensive 63785 GLIADIN ANTIBODY, IGA <9 EU/mL 06/20/2017 Celiac Disease Comprehensive 11297 TISSUE TRANSGLUTAMINASE AB, IGG . 06/20/2017 Celiac Disease Comprehensive 31671 TISSUE TRANSGLUTAMINASE-G 5 EU/mL 06/20/2017 Celiac Disease Comprehensive 59250 TISSUE TRANS. AB IGA W/REFLEX . 06/20/2017 Celiac Disease Comprehensive 77156 TISSUE TRANSGLUTAMINASE-A 6 EU/mL 06/20/2017 Allergen Profile, Comprehensive Food 05046 IMMUNOGLOBULIN E 3 IU/mL 06/19/2017 Allergen Profile, Comprehensive Food 17514 BACON'S YEAST <0.10 kU/L 06/19/2017 Allergen Profile, Comprehensive Food 49449 BARLEY <0.10 kU/L 06/19/2017 Allergen Profile, Comprehensive Food 58096 BEEF <0.10 kU/L 04/2017 Allergen Profile, Comprehensive Food 81707 CHICKEN MEAT <0.10 kU/L 06/19/2017 Allergen Profile, Comprehensive Food 06907 CHOCOLATE <0.10 kU/L 06/19/2017 Allergen Profile, Comprehensive Food 54802 COD <0.10 kU/L 04/2017 Allergen Profile, Comprehensive Food 98614 CORN <0.10 kU/L 04/2017 Allergen Profile, Comprehensive Food 85475 EGG WHITE <0.10 kU/L 06/19/2017 Allergen Profile, Comprehensive Food 66207 LETTUCE <0.10 kU/L 06/19/2017 Allergen Profile, Comprehensive Food 93092 MALT <0.10 kU/L 04/2017 Allergen Profile, Comprehensive Food 52147 MILK <0.10 kU/L 04/2017 Allergen Profile, Comprehensive Food 55270 OAT <0.10 kU/L 04/2017 Allergen Profile, Comprehensive Food 86718 ORANGE <0.10 kU/L 06/19/2017 Allergen Profile, Comprehensive Food 17976 PEANUT <0.10 kU/L 06/19/2017 Allergen Profile, Comprehensive Food 55909 PORK <0.10 kU/L 04/2017 Allergen Profile, Comprehensive Food 95665 POTATO <0.10 kU/L 06/19/2017 Allergen Profile, Comprehensive Food 80652 RYE <0.10 kU/L 04/2017 Allergen Profile, Comprehensive Food 56749 SHRIMP <0.10 kU/L 06/19/2017 Allergen Profile, Comprehensive Food 34082 SOYBEAN <0.10 kU/L 06/19/2017 Allergen Profile, Comprehensive Food 15639 TOMATO <0.10 kU/L 06/19/2017 Allergen Profile, Comprehensive Food 23732 WALNUT <0.10 kU/L 06/19/2017 Allergen Profile, Comprehensive Food 22742 WHEAT <0.10 kU/L Allergen Profile, Comprehensive Food 77687 STRAWBERRY <0.10 kU/L 06/19/2017 Allergen Profile, Comprehensive Food 60591 ALLERGEN INTERPRETATION 06/19/2017 Testosterone Vpf603 Testo 288.8 ng/dL 05/11/2017 Uric Acid Ord77 Uric A 6.0 mg/dL 05/05/2017 C-Reactive Protein Qnt Crqnt CRP 0.3 mg/dl 05/05/2017 Comp Metabolic Cex962 NA 140 mEq/L 05/05/2017 Comp Metabolic Bbd629 K 4.1 mEq/L 05/05/2017 Comp Metabolic Krl803 CL 106 mEq/L 05/05/2017 Comp Metabolic Ejw105 CO2 27.0 mEq/L 05/05/2017 Comp Metabolic Ukh038 ANION GAP 11 05/05/2017 Comp Metabolic Boa220 GLUCOSE 107 mg/dL 05/05/2017 Comp Metabolic Eet958 Creat 0.9 mg/dL 05/05/2017 Comp Metabolic Qux759 eGFR 89 ml/min/1.73m2 05/05/2017 Comp Metabolic Jiw223 BUN 10 mg/dL 05/05/2017 Comp Metabolic Mkh319 B/C Ratio 11.2 Ratio 05/05/2017 Comp Metabolic Qgk222 CALCIUM 8.6 mg/dL 05/05/2017 Comp Metabolic Vwb645 ALK PHOS 96 U/L 05/05/2017 Comp Metabolic Bsb255 AST(SGOT) 36 U/L 05/05/2017 Comp Metabolic Jcy395 ALT(SGPT) 40 U/L 05/05/2017 Comp Metabolic Gkk363 BILI T 0.3 mg/dL 05/05/2017 Comp Metabolic Fcl248 ALBUMIN 3.8 g/dL 05/05/2017 Comp Metabolic Cib039 TPRO 5.8 g/dL 05/05/2017 Comp Metabolic Kug410 GLOB 2.0 g/dL 05/05/2017 Comp Metabolic Gbf821 A/G Ratio 1.9 Ratio 05/05/2017 Comp Metabolic Uca259 Osmo 279 mOsmo 05/05/2017 Sed Rate Ord21 [...] 31.5 pg 05/05/2017 Cbc With Differential Ord2 [place]% 20.6 % 05/05/2017 Cbc With Differential Ord2 [...] 0.27 K/ul 05/05/2017 Cbc With Differential Ord2 [place] ABS# 0.5 K/ul 05/05/2017 Cbc With Differential Ord2 Eos ABS# 0.1 K/ul 05/05/2017 Cbc With Differential Ord2 Baso ABS# 0.0 K/ul 05/05/2017 Magnesium Ord90 Mag 2.2 mg/dL 04/25/2017 Comp Metabolic Bqp865 NA 143 mEq/L 04/25/2017 Comp Metabolic Wxu494 K 4.2 mEq/L 04/25/2017 Comp Metabolic Xpr936 CL 108 mEq/L 04/25/2017 Comp Metabolic Tdt239 CO2 30.0 mEq/L 04/25/2017 Comp Metabolic Oob075 ANION GAP 9 04/25/2017 Comp Metabolic Nps598 GLUCOSE 80 mg/dL 04/25/2017 Comp Metabolic Cpm925 Creat 0.9 mg/dL 04/25/2017 Comp Metabolic Bzw206 eGFR 84 ml/min/1.73m2 04/25/2017 Comp Metabolic Mut479 BUN 16 mg/dL 04/25/2017 Comp Metabolic Pcv515 B/C Ratio 17.0 Ratio 04/25/2017 Comp Metabolic Xlr858 CALCIUM 9.0 mg/dL 04/25/2017 Comp Metabolic Qiz927 ALK PHOS 93 U/L 04/25/2017 Comp Metabolic Vxp986 AST(SGOT) 32 U/L 04/25/2017 Comp Metabolic Xmv891 ALT(SGPT) 36 U/L 04/25/2017 Comp Metabolic Ako952 BILI T 0.5 mg/dL 04/25/2017 Comp Metabolic Fpx539 ALBUMIN 3.9 g/dL 04/25/2017 Comp Metabolic Rpi876 TPRO 6.0 g/dL 04/25/2017 Comp Metabolic Wcq055 GLOB 2.1 g/dL 04/25/2017 Comp Metabolic Dtp388 A/G Ratio 1.8 Ratio 04/25/2017 Comp Metabolic Wfh892 Osmo 285 mOsmo 04/25/2017 Cbc With Differential [...] 31.8 pg 04/25/2017 Cbc With Differential Ord2 [place]% 10.2 % 04/25/2017 Cbc With Differential Ord2 [...] 0.32 K/ul 04/25/2017 Cbc With Differential Ord2 [place] ABS# 0.5 K/ul 04/25/2017 Cbc With Differential Ord2 Eos ABS# 0.1 K/ul 04/25/2017 Cbc With Differential Ord2 Baso ABS# 0.0 K/ul 04/25/2017 Uric Acid Ord77 Uric A 6.0 mg/dL 04/25/2017 Comp Metabolic Vln623 NA 142 mEq/L 04/18/2017 Comp Metabolic Yal314 K 4.3 mEq/L 04/18/2017 Comp Metabolic Unl662 CL 105 mEq/L 04/18/2017 Comp Metabolic Poe544 CO2 30.0 mEq/L 04/18/2017 Comp Metabolic Wbq436 ANION GAP 11 04/18/2017 Comp Metabolic Qkx975 GLUCOSE 126 mg/dL 04/18/2017 Comp Metabolic Llh139 Creat 1.0 mg/dL 04/18/2017 Comp Metabolic Btw314 eGFR 83 ml/min/1.73m2 04/18/2017 Comp Metabolic Bks121 BUN 17 mg/dL 04/18/2017 Comp Metabolic Zgy576 B/C Ratio 17.9 Ratio 04/18/2017 Comp Metabolic Vcf956 CALCIUM 9.0 mg/dL 04/18/2017 Comp Metabolic Weo407 ALK PHOS 100 U/L 04/18/2017 Comp Metabolic Pzl498 AST(SGOT) 27 U/L 04/18/2017 Comp Metabolic Ayq843 ALT(SGPT) 36 U/L 04/18/2017 Comp Metabolic Klt893 BILI T 0.5 mg/dL 04/18/2017 Comp Metabolic Qne547 ALBUMIN 3.8 g/dL 04/18/2017 Comp Metabolic Rna851 TPRO 6.0 g/dL 04/18/2017 Comp Metabolic Daq946 GLOB 2.2 g/dL 04/18/2017 Comp Metabolic Sup231 A/G Ratio 1.8 Ratio 04/18/2017 Comp Metabolic Akm088 Osmo 286 mOsmo 04/18/2017 Uric Acid Ord77 [...] 32.3 pg 04/18/2017 Cbc With Differential Ord2 [place]% 9.6 % 04/18/2017 Cbc With Differential Ord2 [...] 0.23 K/ul 04/18/2017 Cbc With Differential Ord2 [place] ABS# 0.4 K/ul 04/18/2017 Cbc With Differential [...] 32.0 pg 03/30/2017 Cbc With Differential Ord2 [place]% 12.1 % 03/30/2017 Cbc With Differential Ord2 [...] 0.42 K/ul 03/30/2017 Cbc With Differential Ord2 [place] ABS# 0.8 K/ul 03/30/2017 Cbc With Differential Ord2 Eos ABS# 0.1 K/ul 03/30/2017 Cbc With Differential Ord2 Baso ABS# 0.0 K/ul 03/30/2017 Comp Metabolic Duc496 NA 141 mEq/L 03/30/2017 Comp Metabolic Fkk373 K 4.7 mEq/L 03/30/2017 Comp Metabolic Pev268 CL 106 mEq/L 03/30/2017 Comp Metabolic Oem205 CO2 28.0 mEq/L 03/30/2017 Comp Metabolic Eub077 ANION GAP 12 03/30/2017 Comp Metabolic Izz728 GLUCOSE 81 mg/dL 03/30/2017 Comp Metabolic Bcl105 Creat 1.0 mg/dL 03/30/2017 Comp Metabolic Zuw303 eGFR 80 ml/min/1.73m2 03/30/2017 Comp Metabolic Cbs858 BUN 17 mg/dL 03/30/2017 Comp Metabolic Hnw989 B/C Ratio 17.3 Ratio 03/30/2017 Comp Metabolic Hcd820 CALCIUM 8.9 mg/dL 03/30/2017 Comp Metabolic Kca357 ALK PHOS 106 U/L 03/30/2017 Comp Metabolic Ggu926 AST(SGOT) 52 U/L 03/30/2017 Comp Metabolic Zds163 ALT(SGPT) 54 U/L 03/30/2017 Comp Metabolic Gfk988 BILI T 0.4 mg/dL 03/30/2017 Comp Metabolic Djw620 ALBUMIN 3.8 g/dL 03/30/2017 Comp Metabolic Tvz499 TPRO 6.2 g/dL 03/30/2017 Comp Metabolic Kpv955 GLOB 2.4 g/dL 03/30/2017 Comp Metabolic Vim638 A/G Ratio 1.6 Ratio 03/30/2017 Comp Metabolic Igi870 Osmo 282 mOsmo 03/30/2017 Uric Acid Ord77 [...] 6.1 % 03/23/2017 Cbc With Differential Ord2 [place]% 10.7 % 03/23/2017 Cbc With Differential Ord2 [...] 0.31 K/ul 03/23/2017 Cbc With Differential Ord2 [place] ABS# 0.6 K/ul 03/23/2017 Cbc With Differential Ord2 Eos ABS# 0.1 K/ul 03/23/2017 Cbc With Differential Ord2 Baso ABS# 0.0 K/ul 03/23/2017 Magnesium Ord90 Mag 2.0 mg/dL 03/23/2017 Comp Metabolic Fje338 NA 140 mEq/L 03/23/2017 Comp Metabolic Fxc667 K 4.4 mEq/L 03/23/2017 Comp Metabolic Pfs505 CL 105 mEq/L 03/23/2017 Comp Metabolic Zqq064 CO2 30.0 mEq/L 03/23/2017 Comp Metabolic Vpz328 ANION GAP 9 03/23/2017 Comp Metabolic Rgo274 GLUCOSE 75 mg/dL 03/23/2017 Comp Metabolic Gbf265 Creat 0.9 mg/dL 03/23/2017 Comp Metabolic Kcd055 eGFR 87 ml/min/1.73m2 03/23/2017 Comp Metabolic Lqt114 BUN 17 mg/dL 03/23/2017 Comp Metabolic Dcb726 B/C Ratio 18.7 Ratio 03/23/2017 Comp Metabolic Qwk249 CALCIUM 9.0 mg/dL 03/23/2017 Comp Metabolic Vdl275 ALK PHOS 91 U/L 03/23/2017 Comp Metabolic Asy434 AST(SGOT) 27 U/L 03/23/2017 Comp Metabolic Vpx374 ALT(SGPT) 30 U/L 03/23/2017 Comp Metabolic Mfn032 BILI T 0.4 mg/dL 03/23/2017 Comp Metabolic Vqz137 ALBUMIN 3.8 g/dL 03/23/2017 Comp Metabolic Rnh189 TPRO 6.1 g/dL 03/23/2017 Comp Metabolic Fhj830 GLOB 2.3 g/dL 03/23/2017 Comp Metabolic Ygk337 A/G Ratio 1.7 Ratio 03/23/2017 Comp Metabolic Mek629 Osmo 280 mOsmo 03/23/2017 Uric Acid Ord77 [...] 31.7 pg 03/06/2017 Cbc With Differential Ord2 [place]% 11.4 % 03/06/2017 Cbc With Differential Ord2 [...] 0.33 K/ul 03/06/2017 Cbc With Differential Ord2 [place] ABS# 0.5 K/ul 03/06/2017 Cbc With Differential Ord2 Eos ABS# 0.1 K/ul 03/06/2017 Cbc With Differential Ord2 Baso ABS# 0.0 K/ul 03/06/2017 Comp Metabolic Phc610 NA 143 mEq/L 03/06/2017 Comp Metabolic Fsd067 K 4.1 mEq/L 03/06/2017 Comp Metabolic Zle419 CL 107 mEq/L 03/06/2017 Comp Metabolic Szl832 CO2 29.0 mEq/L 03/06/2017 Comp Metabolic Xea454 ANION GAP 11 03/06/2017 Comp Metabolic Cwp073 GLUCOSE 129 mg/dL 03/06/2017 Comp Metabolic Jfh395 Creat 0.9 mg/dL 03/06/2017 Comp Metabolic Kgb202 eGFR 88 ml/min/1.73m2 03/06/2017 Comp Metabolic Uuo898 BUN 15 mg/dL 03/06/2017 Comp Metabolic Mby679 B/C Ratio 16.7 Ratio 03/06/2017 Comp Metabolic Shh854 CALCIUM 8.7 mg/dL 03/06/2017 Comp Metabolic Ujt550 ALK PHOS 99 U/L 03/06/2017 Comp Metabolic Kic258 AST(SGOT) 29 U/L 03/06/2017 Comp Metabolic Snt097 ALT(SGPT) 30 U/L 03/06/2017 Comp Metabolic Axx911 BILI T 0.4 mg/dL 03/06/2017 Comp Metabolic Pqt299 ALBUMIN 3.8 g/dL 03/06/2017 Comp Metabolic Awq303 TPRO 5.9 g/dL 03/06/2017 Comp Metabolic Lyy109 GLOB 2.1 g/dL 03/06/2017 Comp Metabolic Fxk232 A/G Ratio 1.9 Ratio 03/06/2017 Comp Metabolic Ick775 Osmo 288 mOsmo 03/06/2017 Cbc With Differential [...] 94.1 fl 02/27/2017 Cbc With Differential Ord2 [place]% 10.1 % 02/27/2017 Cbc With Differential Ord2 [...] 0.32 K/ul 02/27/2017 Cbc With Differential Ord2 [place] ABS# 0.6 K/ul 02/27/2017 Cbc With Differential Ord2 Eos ABS# 0.1 K/ul 02/27/2017 Cbc With Differential Ord2 Baso ABS# 0.0 K/ul 02/27/2017 Uric Acid Ord77 Uric A 5.5 mg/dL 02/27/2017 Magnesium Ord90 Mag 2.2 mg/dL 02/27/2017 Comp Metabolic Mgl896 NA 141 mEq/L 02/27/2017 Comp Metabolic Euq692 K 4.5 mEq/L 02/27/2017 Comp Metabolic Keb139 CL 105 mEq/L 02/27/2017 Comp Metabolic Npw820 CO2 30.0 mEq/L 02/27/2017 Comp Metabolic Cwl544 ANION GAP 11 02/27/2017 Comp Metabolic Cwn166 GLUCOSE 73 mg/dL 02/27/2017 Comp Metabolic Oua729 Creat 0.9 mg/dL 02/27/2017 Comp Metabolic Htu497 eGFR 87 ml/min/1.73m2 02/27/2017 Comp Metabolic Whm239 BUN 17 mg/dL 02/27/2017 Comp Metabolic Fkz539 B/C Ratio 18.7 Ratio 02/27/2017 Comp Metabolic Eey733 CALCIUM 8.8 mg/dL 02/27/2017 Comp Metabolic Pfd982 ALK PHOS 93 U/L 02/27/2017 Comp Metabolic Ekq015 AST(SGOT) 31 U/L 02/27/2017 Comp Metabolic Qzu302 ALT(SGPT) 35 U/L 02/27/2017 Comp Metabolic Tjv068 BILI T 0.4 mg/dL 02/27/2017 Comp Metabolic Ctb194 ALBUMIN 3.9 g/dL 02/27/2017 Comp Metabolic Xlr112 TPRO 5.9 g/dL 02/27/2017 Comp Metabolic Mle261 GLOB 2.0 g/dL 02/27/2017 Comp Metabolic Nxx953 A/G Ratio 2.0 Ratio 02/27/2017 Comp Metabolic Iaq587 Osmo 281 mOsmo 02/27/2017 Magnesium Ord90 Mag [...] 32.0 pg 02/21/2017 Cbc With Differential Ord2 [place]% 9.0 % 02/21/2017 Cbc With Differential Ord2 [...] 0.31 K/ul 02/21/2017 Cbc With Differential Ord2 [place] ABS# 0.5 K/ul 02/21/2017 Cbc With Differential Ord2 Eos ABS# 0.1 K/ul 02/21/2017 Cbc With Differential Ord2 Baso ABS# 0.0 K/ul 02/21/2017 Uric Acid Ord77 Uric A 5.0 mg/dL 02/21/2017 Comp Metabolic Ggd885 NA 134 mEq/L 02/21/2017 Comp Metabolic Ddu196 K 4.3 mEq/L 02/21/2017 Comp Metabolic Ihx297 CL 100 mEq/L 02/21/2017 Comp Metabolic Poz177 CO2 28.0 mEq/L 02/21/2017 Comp Metabolic Gck414 ANION GAP 10 02/21/2017 Comp Metabolic Poh197 GLUCOSE 130 mg/dL 02/21/2017 Comp Metabolic Bqx454 Creat 1.0 mg/dL 02/21/2017 Comp Metabolic Wwu182 eGFR 77 ml/min/1.73m2 02/21/2017 Comp Metabolic Vet053 BUN 17 mg/dL 02/21/2017 Comp Metabolic Dxm042 B/C Ratio 16.8 Ratio 02/21/2017 Comp Metabolic Oie553 CALCIUM 9.1 mg/dL 02/21/2017 Comp Metabolic Wbx421 ALK PHOS 92 U/L 02/21/2017 Comp Metabolic Sus029 AST(SGOT) 23 U/L 02/21/2017 Comp Metabolic Kou831 ALT(SGPT) 29 U/L 02/21/2017 Comp Metabolic Rzs137 BILI T 0.3 mg/dL 02/21/2017 Comp Metabolic Yed648 ALBUMIN 3.9 g/dL 02/21/2017 Comp Metabolic Rua455 TPRO 6.1 g/dL 02/21/2017 Comp Metabolic Mcw063 GLOB 2.2 g/dL 02/21/2017 Comp Metabolic Dvs197 A/G Ratio 1.8 Ratio 02/21/2017 Comp Metabolic Kxp727 Osmo 272 mOsmo 02/21/2017 Uric Acid Ord77 Uric A 4.2 mg/dL 02/07/2017 Comp Metabolic Wxd657 NA 139 mEq/L 02/07/2017 Comp Metabolic Bph111 K 4.6 mEq/L 02/07/2017 Comp Metabolic Tiv098 CL 106 mEq/L 02/07/2017 Comp Metabolic Zol686 CO2 29.0 mEq/L 02/07/2017 Comp Metabolic Idb580 ANION GAP 9 02/07/2017 Comp Metabolic Qqg580 GLUCOSE 99 mg/dL 02/07/2017 Comp Metabolic Jxl103 Creat 0.9 mg/dL 02/07/2017 Comp Metabolic Zmh411 eGFR 92 ml/min/1.73m2 02/07/2017 Comp Metabolic Lhp627 BUN 19 mg/dL 02/07/2017 Comp Metabolic Uiy172 B/C Ratio 21.8 Ratio 02/07/2017 Comp Metabolic Ncu044 CALCIUM 8.8 mg/dL 02/07/2017 Comp Metabolic Ysf811 ALK PHOS 81 U/L 02/07/2017 Comp Metabolic Lse073 AST(SGOT) 22 U/L 02/07/2017 Comp Metabolic Ets291 ALT(SGPT) 24 U/L 02/07/2017 Comp Metabolic Gdc342 BILI T 0.3 mg/dL 02/07/2017 Comp Metabolic Hnf738 ALBUMIN 3.9 g/dL 02/07/2017 Comp Metabolic Njr153 TPRO 5.8 g/dL 02/07/2017 Comp Metabolic Nue132 GLOB 1.9 g/dL 02/07/2017 Comp Metabolic Teg728 A/G Ratio 2.0 Ratio 02/07/2017 Comp Metabolic Woh745 Osmo 280 mOsmo 02/07/2017 Cbc With Differential [...] 31.9 pg 02/07/2017 Cbc With Differential Ord2 [place]% 12.0 % 02/07/2017 Cbc With Differential Ord2 [...] 0.44 K/ul 02/07/2017 Cbc With Differential Ord2 [place] ABS# 0.5 K/ul 02/07/2017 Cbc With Differential Ord2 Eos ABS# 0.1 K/ul 02/07/2017 Cbc With Differential Ord2 Baso ABS# 0.0 K/ul 02/07/2017 Magnesium Ord90 Mag 2.1 mg/dL 02/07/2017 Comp Metabolic Frw907 NA 142 mEq/L 01/31/2017 Comp Metabolic Wys738 K 4.7 mEq/L 01/31/2017 Comp Metabolic Eik295 CL 106 mEq/L 01/31/2017 Comp Metabolic Dxo186 CO2 32.0 mEq/L 01/31/2017 Comp Metabolic Zlr448 ANION GAP 9 01/31/2017 Comp Metabolic Mzs328 GLUCOSE 93 mg/dL 01/31/2017 Comp Metabolic Twe590 Creat 1.0 mg/dL 01/31/2017 Comp Metabolic Cjw912 eGFR 83 ml/min/1.73m2 01/31/2017 Comp Metabolic Dkl017 BUN 20 mg/dL 01/31/2017 Comp Metabolic Vnt227 B/C Ratio 21.1 Ratio 01/31/2017 Comp Metabolic Btt656 CALCIUM 9.1 mg/dL 01/31/2017 Comp Metabolic Zry674 ALK PHOS 80 U/L 01/31/2017 Comp Metabolic Bac274 AST(SGOT) 22 U/L 01/31/2017 Comp Metabolic Shw059 ALT(SGPT) 24 U/L 01/31/2017 Comp Metabolic Hce242 BILI T 0.4 mg/dL 01/31/2017 Comp Metabolic Eni855 ALBUMIN 4.0 g/dL 01/31/2017 Comp Metabolic Ikv260 TPRO 6.0 g/dL 01/31/2017 Comp Metabolic Hub628 GLOB 2.1 g/dL 01/31/2017 Comp Metabolic Kbc662 A/G Ratio 1.9 Ratio 01/31/2017 Comp Metabolic Dyb736 Osmo 285 mOsmo 01/31/2017 Cbc With Differential [...] 5.3 % 01/31/2017 Cbc With Differential Ord2 [place]% 7.9 % 01/31/2017 Cbc With Differential Ord2 [...] 0.38 K/ul 01/31/2017 Cbc With Differential Ord2 [place] ABS# 0.6 K/ul 01/31/2017 Cbc With Differential [...] 32.1 pg 01/23/2017 Cbc With Differential Ord2 [place]% 8.9 % 01/23/2017 Cbc With Differential Ord2 [...] 0.42 K/ul 01/23/2017 Cbc With Differential Ord2 [place] ABS# 0.5 K/ul 01/23/2017 Cbc With Differential Ord2 Eos ABS# 0.1 K/ul 01/23/2017 Cbc With Differential Ord2 Baso ABS# 0.0 K/ul 01/23/2017 Uric Acid Ord77 Uric A 5.4 mg/dL 01/23/2017 Comp Metabolic Zfb503 NA 141 mEq/L 01/23/2017 Comp Metabolic Uuk588 K 4.4 mEq/L 01/23/2017 Comp Metabolic Tzg290 CL 104 mEq/L 01/23/2017 Comp Metabolic Haz017 CO2 31.0 mEq/L 01/23/2017 Comp Metabolic Ebx293 ANION GAP 10 01/23/2017 Comp Metabolic Exj133 GLUCOSE 109 mg/dL 01/23/2017 Comp Metabolic Rpz069 Creat 1.1 mg/dL 01/23/2017 Comp Metabolic Bfc654 eGFR 71 ml/min/1.73m2 01/23/2017 Comp Metabolic Hkh254 BUN 22 mg/dL 01/23/2017 Comp Metabolic Dpi137 B/C Ratio 20.4 Ratio 01/23/2017 Comp Metabolic Ovv776 CALCIUM 9.1 mg/dL 01/23/2017 Comp Metabolic Mfw213 ALK PHOS 76 U/L 01/23/2017 Comp Metabolic Jfg995 AST(SGOT) 22 U/L 01/23/2017 Comp Metabolic Geg318 ALT(SGPT) 22 U/L 01/23/2017 Comp Metabolic Uij606 BILI T 0.4 mg/dL 01/23/2017 Comp Metabolic Ljm039 ALBUMIN 3.8 g/dL 01/23/2017 Comp Metabolic Qfe142 TPRO 5.9 g/dL 01/23/2017 Comp Metabolic Mxu391 GLOB 2.1 g/dL 01/23/2017 Comp Metabolic Lav095 A/G Ratio 1.8 Ratio 01/23/2017 Comp Metabolic Xuk675 Osmo 285 mOsmo 01/23/2017 Testosterone Fyt134 Testo 321.3 ng/dL 01/10/2017 Comp Metabolic Yez434 NA 141 mEq/L 01/10/2017 Comp Metabolic Qhj929 K 4.8 mEq/L 01/10/2017 Comp Metabolic Osl026 CL 106 mEq/L 01/10/2017 Comp Metabolic Jfr723 CO2 29.0 mEq/L 01/10/2017 Comp Metabolic Unn213 ANION GAP 11 01/10/2017 Comp Metabolic Gdz935 GLUCOSE 73 mg/dL 01/10/2017 Comp Metabolic Azf511 Creat 0.9 mg/dL 01/10/2017 Comp Metabolic Bxg027 eGFR 93 ml/min/1.73m2 01/10/2017 Comp Metabolic Vce696 BUN 19 mg/dL 01/10/2017 Comp Metabolic Uxc375 B/C Ratio 22.1 Ratio 01/10/2017 Comp Metabolic Ctb309 CALCIUM 9.0 mg/dL 01/10/2017 Comp Metabolic Kpx487 ALK PHOS 80 U/L 01/10/2017 Comp Metabolic Rvv399 AST(SGOT) 24 U/L 01/10/2017 Comp Metabolic Lyu513 ALT(SGPT) 28 U/L 01/10/2017 Comp Metabolic Rpj170 BILI T 0.4 mg/dL 01/10/2017 Comp Metabolic Xll165 ALBUMIN 3.8 g/dL 01/10/2017 Comp Metabolic Reb440 TPRO 5.9 g/dL 01/10/2017 Comp Metabolic Ayo441 GLOB 2.1 g/dL 01/10/2017 Comp Metabolic Uxs508 A/G Ratio 1.9 Ratio 01/10/2017 Comp Metabolic Bwy706 Osmo 282 mOsmo 01/10/2017 Cbc With Differential [...] 31.9 pg 01/10/2017 Cbc With Differential Ord2 [place]% 9.6 % 01/10/2017 Cbc With Differential Ord2 Eos% 1.9 % 01/10/2017 Cbc With Differential Ord2 MCHC 33.7 pg 01/10/2017 Cbc With Differential Ord2 Baso% 0.3 % 01/10/2017 Cbc With Differential Ord2 PLT 201 K/ul 01/10/2017 Cbc With Differential Ord2 Neut ABS# 5.05 K/ul 01/10/2017 Cbc With Differential Ord2 RDW 14.6 % 01/10/2017 Cbc With Differential Ord2 Lymph ABS# 0.62 K/ul 01/10/2017 Cbc With Differential Ord2 [place] ABS# 0.6 K/ul 01/10/2017 Cbc With Differential [...] 31.8 pg 01/03/2017 Cbc With Differential Ord2 [place]% 8.6 % 01/03/2017 Cbc With Differential Ord2 [...] 0.42 K/ul 01/03/2017 Cbc With Differential Ord2 [place] ABS# 0.5 K/ul 01/03/2017 Cbc With Differential Ord2 Eos ABS# 0.1 K/ul 01/03/2017 Cbc With Differential Ord2 Baso ABS# 0.0 K/ul 01/03/2017 Comp Metabolic Cqb769 NA 140 mEq/L 01/03/2017 Comp Metabolic Dhu757 K 4.7 mEq/L 01/03/2017 Comp Metabolic Ovx933 CL 106 mEq/L 01/03/2017 Comp Metabolic Brj392 CO2 28.0 mEq/L 01/03/2017 Comp Metabolic Vrr292 ANION GAP 11 01/03/2017 Comp Metabolic Zxe733 GLUCOSE 126 mg/dL 01/03/2017 Comp Metabolic Ipa230 Creat 0.9 mg/dL 01/03/2017 Comp Metabolic Kbx881 eGFR 88 ml/min/1.73m2 01/03/2017 Comp Metabolic Asn295 BUN 23 mg/dL 01/03/2017 Comp Metabolic Wan927 B/C Ratio 25.6 Ratio 01/03/2017 Comp Metabolic Ejq654 CALCIUM 8.8 mg/dL 01/03/2017 Comp Metabolic Hxt071 ALK PHOS 73 U/L 01/03/2017 Comp Metabolic Mis797 AST(SGOT) 25 U/L 01/03/2017 Comp Metabolic Lfa849 ALT(SGPT) 30 U/L 01/03/2017 Comp Metabolic Zkn891 BILI T 0.4 mg/dL 01/03/2017 Comp Metabolic Bhl787 ALBUMIN 3.9 g/dL 01/03/2017 Comp Metabolic Zsg015 TPRO 5.9 g/dL 01/03/2017 Comp Metabolic Yxe638 GLOB 2.1 g/dL 01/03/2017 Comp Metabolic Huq051 A/G Ratio 1.9 Ratio 01/03/2017 Comp Metabolic Zdq166 Osmo 285 mOsmo 01/03/2017 Cbc With Differential [...] 31.7 pg 12/12/2016 Cbc With Differential Ord2 [place]% 8.9 % 12/12/2016 Cbc With Differential Ord2 [...] 0.80 K/ul 12/12/2016 Cbc With Differential Ord2 [place] ABS# 0.5 K/ul 12/12/2016 Cbc With Differential Ord2 Eos ABS# 0.1 K/ul 12/12/2016 Cbc With Differential Ord2 Baso ABS# 0.1 K/ul 12/12/2016 Comp Metabolic Nws225 NA 140 mEq/L 12/12/2016 Comp Metabolic Sxv472 K 3.8 mEq/L 12/12/2016 Comp Metabolic Oou393 CL 105 mEq/L 12/12/2016 Comp Metabolic Ufi916 CO2 26.0 mEq/L 12/12/2016 Comp Metabolic Vsu718 ANION GAP 13 12/12/2016 Comp Metabolic Vpn113 GLUCOSE 112 mg/dL 12/12/2016 Comp Metabolic Qsm892 Creat 0.9 mg/dL 12/12/2016 Comp Metabolic Hod805 eGFR 89 ml/min/1.73m2 12/12/2016 Comp Metabolic Nze991 BUN 16 mg/dL 12/12/2016 Comp Metabolic Xui919 B/C Ratio 18.0 Ratio 12/12/2016 Comp Metabolic Qpa285 CALCIUM 8.6 mg/dL 12/12/2016 Comp Metabolic Wok571 ALK PHOS 80 U/L 12/12/2016 Comp Metabolic Cly141 AST(SGOT) 21 U/L 12/12/2016 Comp Metabolic Ysr410 ALT(SGPT) 23 U/L 12/12/2016 Comp Metabolic Wov714 BILI T 0.4 mg/dL 12/12/2016 Comp Metabolic Osq798 ALBUMIN 3.7 g/dL 12/12/2016 Comp Metabolic Wgr364 TPRO 5.6 g/dL 12/12/2016 Comp Metabolic Hzt726 GLOB 1.9 g/dL 12/12/2016 Comp Metabolic Vvb949 A/G Ratio 2.0 Ratio 12/12/2016 Comp Metabolic Zby403 Osmo 281 mOsmo 12/12/2016 Comp Metabolic Yog209 NA 140 mEq/L 12/05/2016 Comp Metabolic Ltx175 K 4.6 mEq/L 12/05/2016 Comp Metabolic Mdt130 CL 104 mEq/L 12/05/2016 Comp Metabolic Mmn772 CO2 29.0 mEq/L 12/05/2016 Comp Metabolic Dme063 ANION GAP 12 12/05/2016 Comp Metabolic Qid823 GLUCOSE 93 mg/dL 12/05/2016 Comp Metabolic Usn226 Creat 0.8 mg/dL 12/05/2016 Comp Metabolic Jek597 eGFR 98 ml/min/1.73m2 12/05/2016 Comp Metabolic Djj288 BUN 20 mg/dL 12/05/2016 Comp Metabolic Dhr053 B/C Ratio 24.4 Ratio 12/05/2016 Comp Metabolic Vmp546 CALCIUM 8.8 mg/dL 12/05/2016 Comp Metabolic Zlt146 ALK PHOS 82 U/L 12/05/2016 Comp Metabolic Bnv976 AST(SGOT) 24 U/L 12/05/2016 Comp Metabolic Qnx903 ALT(SGPT) 28 U/L 12/05/2016 Comp Metabolic Mjp740 BILI T 0.4 mg/dL 12/05/2016 Comp Metabolic Zbi299 ALBUMIN 3.9 g/dL 12/05/2016 Comp Metabolic Apv373 TPRO 5.9 g/dL 12/05/2016 Comp Metabolic Ktx113 GLOB 2.0 g/dL 12/05/2016 Comp Metabolic Dzo629 A/G Ratio 2.0 Ratio 12/05/2016 Comp Metabolic Zzy072 Osmo 282 mOsmo 12/05/2016 Cbc With Differential [...] 94.4 fl 12/05/2016 Cbc With Differential Ord2 [place]% 8.8 % 12/05/2016 Cbc With Differential Ord2 [...] 1.16 K/ul 12/05/2016 Cbc With Differential Ord2 [place] ABS# 0.7 K/ul 12/05/2016 Cbc With Differential [...] accomodation 11/22/2017 None Full Exam - General 1995 Ears/Nose/Throat otoscopic exam Overall: external auditory canals clear 11/22/2017 None Full Exam - General 1995 Ears/Nose/Throat otoscopic exam Overall: tympanic membranes clear 11/22/2017 None Full Exam - General 1994 Ears/Nose/Throat lips/teeth/gingiva Overall: benign lips 11/22/2017 None Full Exam - General 1995 Ears/Nose/Throat lips/teeth/gingiva Overall: normal dentition 11/22/2017 None [...] clear 12/05/2016 None Full Exam - General 1995 Ears/Nose/Throat oral cavity/pharynx/larynx Overall: hypopharynx benign 12/05/2016 [...] Code : 8480-6 BMI: 29.4 Code : 05857-7 Heart Rate 1 : 90 bpm Height: 6' SpO2: 99% Weight: 217 lbs 12/21/2017 Blood Pressure 1: 142/80 Code : 8480-6 BMI: 29.7 Code : 37291-0 Heart Rate 1 : 74 bpm Height: 6' SpO2: 96% Weight: 219 lbs 11/22/2017 Blood Pressure 1: 130/72 Code : 8480-6 BMI: 29.8 Code : 96479-2 Heart Rate 1 : 53 bpm Height: 6' SpO2: 97% Weight: 220 lbs 07/19/2017 Blood Pressure 1: 142/80 Code : 8480-6 BMI: 30.1 Code : 92849-6 Heart Rate 1 : 60 bpm Height: 6' SpO2: 99% Weight: 222 lbs 06/05/2017 Blood Pressure 1: 136/74 Code : 8480-6 BMI: 30.2 Code : 05040-3 Heart Rate 1 : 59 bpm Height: 6' SpO2: 98% Weight: 223 lbs 05/03/2017 Blood Pressure 1: 128/80 Code : 8480-6 BMI: 30.2 Code : 66743-8 Heart Rate 1 : 79 bpm Height: 6' SpO2: 98% Weight: 223 lbs 02/27/2017 Blood Pressure 1: 126/66 Code : 8480-6 BMI: 30.2 Code : 11427-8 Heart Rate 1 : 61 bpm Height: 6' SpO2: 99% Weight: 223 lbs 01/10/2017 Blood Pressure 1: 136/70 Code : 8480-6 BMI: 30.0 Code : 48454-9 Heart Rate 1 : 62 bpm Height: 6' SpO2: 98% Weight: 221 lbs 8 oz 12/05/2016 Blood Pressure 1: 138/74 Code : 8480-6 BMI: 29.3 Code : 05927-0 Heart Rate 1 : 62 bpm Height: [...] Performer Location Codes Date EST. PATIENT, LEVEL III Diagnosis: Generalized anxiety disorder[ICD10: F41.1] Diagnosis: Major depressive disorder, single episode, moderate[ICD10: F32.1] Leonor Salomon MD, [facility] CPT-4: 93470 01/02/2018 ([id number]) 11111 EST. PATIENT, LEVEL III Diagnosis: Concussion without loss of consciousness, initial encounter[ICD10: S06.0X0A] Diagnosis: Laceration without foreign body of other part of head, initial encounter[ICD10: S01.81XA] Harriet Salomon MD, [facility] CPT-4: 92566 12/21/2017 ([id number]) 29191 EST. 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 PATIENT, LEVEL III Diagnosis: Rash and other nonspecific skin eruption[ICD10: R21] Diagnosis: Slow transit constipation[ICD10: K59.01] Harriet Salomon MD, [facility] CPT-4: 99321 07/19/2017 ([id number]) 17132 EST. PATIENT, LEVEL III Diagnosis: Epigastric pain[ICD10: R10.13] Harriet Salomon MD [facility] CPT- 4: 22603 06/05/2017 ([id number]) 25455 EST. PATIENT, LEVEL IV Diagnosis: Umbilical hernia without obstruction or gangrene[ICD10: K42.9] Diagnosis: Chronic lymphocytic leukemia of B-cell type not having achieved remission[ICD10: C91.10] Diagnosis: Pain in left hip[ICD10: M25.552] Diagnosis: Pain in right hip[ICD10: M25.551] Diagnosis: Pain in left knee[ICD10: M25.562] Diagnosis: Pain in right knee[ICD10: M25.561] Harriet Salomon MD, [facility] CPT-4: 95541 05/03/2017 [id number]) 08828 EST. PATIENT, LEVEL IV Diagnosis: Chronic lymphocytic leukemia of B-cell type not having achieved remission[ICD10: C91.10] Diagnosis: Periumbilical pain[ICD10: R10.33] Harriet Salomon MD, [facility] CPT-4: 00010 02/27/2017 ([id number]) 77859 EST. 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] Diagnosis: Umbilical hernia without obstruction or gangrene[ICD10: K42.9] [facility] CPT-4: 61958 01/10/2017 ([id number]) OFFICE VISIT, NEW - LEVEL 4 Diagnosis: Umbilical hernia without obstruction or gangrene[ICD10: K42.9] Diagnosis: Periumbilical pain[ICD10: R10.33] Diagnosis: Chronic lymphocytic leukemia of B-cell type not having achieved remission[ICD10: C91.10] Diagnosis: Slow transit constipation[ICD10: K59.01] [facility] CPT-4: 93497 12/05/2016 Plan of Care Planned Activity Notes Codes Status Date Visit Plan: Anxiety - the patient has [...] this patient. 01/02/2018 Appointment: Leonor Niño WPtel: [address] [place], [place] [phone] (15 min) Moderate 01/02/2018 Patient Education: Patient [...] at times. 12/21/2017 Appointment: Harriet Salomon WPtel: [address] [place], [place] [id number] (15 min) Moderate 12/21/2017 Patient Education: Patient [...] this time. 11/22/2017 Appointment: [phone] [place] [place] (15 min) Moderate 11/22/2017 Patient Education: Patient Medication Summary Completed 11/22/2017 Visit Plan: CLL - pt has finished chemotherapy - continue with follow up with Dr. Austin. Umbilical hernia -pt is not interested in surgery right now. Constipation - continue with current regimen - add prune juice - keep appt for colonoscopy and EGD. 07/19/2017 Appointment: Harriet Salomon WPtel: [address] [facility] [place] (15 min) Moderate 07/19/2017 Patient Education: Patient Medication Summary Completed 07/19/2017 Visit Plan: Epigastric abdominal pain - pt advised to avoid dairy products - pt to start on start on the carafate and restart pepcid 06/05/2017 Appointment: Harriet Salomon WPtel: [facility] [place] (15 min) Moderate 06/05/2017 Patient Education: [...] to surgery. 05/03/2017 Appointment: Harriet Salomon WPtel: [facility] [place] [place] (15 min) Moderate 05/03/2017 Patient Education: Patient Medication Summary Completed 05/03/2017 Visit Plan: CLL - continue with chemotherapy. Umbilical hernia - agree with plans for pt to have re-evaluation with surgeon after his chemotherapy is complete. 02/27/2017 Appointment: [facility] Salomon [phone] [facility] [place] [place] (15 min) Moderate 02/27/2017 Patient Education: [...] his chemotherapy is completed. 01/10/2017 Appointment: Harriet Salmoon WPtel: [facility] (15 min) Moderate 01/10/2017 Patient Education: Patient Medication Summary Completed 01/10/2017 Patient Education: Obesity Completed 01/10/2017 Care Plan: ASSAY OF TOTAL TESTOSTERONE LOINC : 11443-7 Pending 01/10/2017 Appointment: Harriet Salomon WPtel: [facility]6 [facility] (15 min) Moderate 01/02/2017 Visit Plan: Umbilical [...] this regimen. 12/05/2016 Appointment: Harriet Salomon WPtel: [facility] New Patient 12/05/2016 Patient Education: Patient Medication Summary Completed 12/05/2016 Instructions Comment . CLL - continue with chemotherapy. Umbilical hernia - agree with plans for pt to have re-evaluation with surgeon after his chemotherapy is complete. start on the carafate and restart pepcid . Epigastric abdominal pain - pt advised to avoid dairy products - pt to start on start on the carafate and restart pepcid . Anxiety - the patient has uncontrolled [...] has been appropriately prescribed for this patient. extended release melatonin . Esa had a [...] which could be quite painful at times. aleve twice daily - 220mg each can [...] for colonoscopy and EGD. please have the clam shovel operator look at the rough area below your [...] if symptoms not improved on this regimen. extended release melatonin . Esa had a [...]
--- OUTSIDE RECORDS SUMMARY | 2018-05-10 18:50 | XMS REPORT | CCD ---
Author Author [facility] Organization [facility] Address [address] [place] [address] Phone Care Team Providers Care Chemistry Teacher Name Role Phone PP Unavailable CCM Unavailable Summary Purpose Interface Exchange Insurance Providers Payer name Policy type / Coverage type Covered libertarian ID Effective Begin Date Effective End Date WPS Medicare Part B Medicare Part B [id number] Unknown Unknown AARP Medicare Part B [id number] Unknown Unknown Family history Father Diagnosis Age At Onset brain cancer Unknown Skin cancer Unknown Mother Diagnosis Age At Onset Cancer Unknown Daughter Diagnosis Age At Onset Celiac disease Unknown Social History Social History Element Codes Description Effective Dates Marital status Unknown Single 12/05/2016 Number of children Unknown 2 12/05/2016 Employment Unknown 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 Unknown Has never used illegal drugs 12/05/2016 Allergies, Adverse Reactions, Alerts Allergies, Adverse Reactions, Alerts data not found Past Medical History Illness Codes Condition Status Onset Date Resolved Date Chronic lymphocytic leukemia of B-cell type not having achieved remission ICD-9: 204.10 ICD-10: C91.10 Active 12/05/2016 Unknown Periumbilical pain ICD -9: 789.05 ICD-10: R10.33 Active 12/05/2016 Unknown Decreased libido ICD-9 : 799.81 ICD-10: R68.82 Active 01/10/2017 Unknown Umbilical hernia without obstruction or gangrene ICD-9: 553.1 ICD-10: K42.9 Active 12/05/2016 Unknown Slow transit constipation ICD-9: 564.01 ICD-10: K59.01 Active 12/05/2016 Unknown Problems Condition Codes Effective Dates Condition Status Chronic lymphocytic leukemia of B-cell type not having achieved remission ICD-9: 204.10 ICD-10: C91.10 12/05/2016 Active Periumbilical pain ICD -9: 789.05 ICD-10: R10.33 12/05/2016 Active Decreased libido ICD-9 : 799.81 ICD-10: R68.82 01/10/2017 Active Umbilical hernia without obstruction or gangrene ICD-9: 553.1 ICD-10: K42.9 12/05/2016 Active Slow transit constipation ICD-9: 564.01 ICD-10: K59.01 12/05/2016 Active Medications Medication Codes Instructions Start Date Stop Date Status Fill Instructions mupirocin 2 % topical cream RxNorm: 648647 1 Application TOP BID 02/27/2017 03/08/2017 Inactive meclizine 25 mg tablet RxNorm: 250174 1 Tablet(s) PO TID as needed nausea 01/27/2017 03/27/2017 Inactive meclizine 25 mg tablet RxNorm: 341544 1 Tablet(s) PO TID as needed nausea 01/27/2017 01/26/2017 Inactive scopolamine 1 mg over 3 days transdermal patch RxNorm: 124261 1 TD Q72H 01/10/2017 02/26/2017 Inactive vitamin E (dl, acetate) oral RxNorm: oral No Start Date Active Medication Administered No Medication Administered data Immunizations No Immunization data Assessments Condition Codes Effective Dates Periumbilical pain ICD-10: R10.33 ICD-9: 789.05 02/27/2017 Chronic lymphocytic leukemia of B-cell type not having achieved remission ICD-10: C91.10 ICD-9: 204.10 02/27/2017 Umbilical hernia without obstruction or gangrene ICD-10: K42.9 ICD-9: 553.1 01/10/2017 Decreased libido ICD-10: R68.82 ICD-9: 799.81 01/10/2017 Slow transit constipation ICD-10: K59.01 ICD-9: 564.01 12/05/2016 Reason For Visit Reason For Visit Effective Dates Notes nausea 02/27/2017 nausea 01/10/2017 nausea 12/05/2016 Results Observation Observation Code Item Item Code Result Date Cbc With Differential Ord2 WBC 3.86 K/ul [...] 32.3 pg 04/18/2017 Cbc With Differential Ord2 Roberts% 9.6 % 04/18/2017 Cbc With Differential Ord2 [...] 0.23 K/ul 04/18/2017 Cbc With Differential Ord2 Roberts ABS# 0.4 K/ul 04/18/2017 Cbc With Differential Ord2 Eos ABS# 0.1 K/ul 04/18/2017 Cbc With Differential Ord2 Baso ABS# 0.0 K/ul 04/18/2017 Magnesium Ord90 Mag 2.2 mg/dL 03/30/2017 Uric Acid Ord77 Uric A 5.0 mg/dL 03/30/2017 Comp Metabolic Gaf612 NA 141 mEq/L 03/30/2017 Comp Metabolic Cjj322 K 4.7 mEq/L 03/30/2017 Comp Metabolic Jzb447 CL 106 mEq/L 03/30/2017 Comp Metabolic Wfs334 CO2 28.0 mEq/L 03/30/2017 Comp Metabolic Qam229 ANION GAP 12 03/30/2017 Comp Metabolic Quq056 GLUCOSE 81 mg/dL 03/30/2017 Comp Metabolic Zog223 Creat 1.0 mg/dL 03/30/2017 Comp Metabolic Yrg102 eGFR 80 ml/min/1.73m2 03/30/2017 Comp Metabolic Zoy576 BUN 17 mg/dL 03/30/2017 Comp Metabolic Ism878 B/C Ratio 17.3 Ratio 03/30/2017 Comp Metabolic Jxp565 CALCIUM 8.9 mg/dL 03/30/2017 Comp Metabolic Eby756 ALK PHOS 106 U/L 03/30/2017 Comp Metabolic Qkr238 AST(SGOT) 52 U/L 03/30/2017 Comp Metabolic Zzk421 ALT(SGPT) 54 U/L 03/30/2017 Comp Metabolic Jdf049 BILI T 0.4 mg/dL 03/30/2017 Comp Metabolic Fjf688 ALBUMIN 3.8 g/dL 03/30/2017 Comp Metabolic Not556 TPRO 6.2 g/dL 03/30/2017 Comp Metabolic Ytv975 GLOB 2.4 g/dL 03/30/2017 Comp Metabolic Gqq066 A/G Ratio 1.6 Ratio 03/30/2017 Comp Metabolic Lhu701 Osmo 282 mOsmo 03/30/2017 Cbc With Differential Ord2 WBC 6.69 [...] 32.0 pg 03/30/2017 Cbc With Differential Ord2 Roberts% 12.1 % 03/30/2017 Cbc With Differential Ord2 [...] 0.42 K/ul 03/30/2017 Cbc With Differential Ord2 Roberts ABS# 0.8 K/ul 03/30/2017 Cbc With Differential Ord2 Eos ABS# 0.1 K/ul 03/30/2017 Cbc With Differential Ord2 Baso ABS# 0.0 K/ul 03/30/2017 Magnesium Ord90 Mag 2.0 mg/dL 03/23/2017 Uric Acid Ord77 Uric A 5.0 mg/dL 03/23/2017 Cbc With Differential Ord2 WBC 5.12 K/ul 03/23/2017 Cbc With Differential Ord2 RBC 4.88 M/ul 03/23/2017 Cbc With Differential Ord2 HGB 15.6 g/dl 03/23/2017 Cbc With Differential Ord2 Neut% 81.0 % 03/23/2017 Cbc With Differential Ord2 HCT 45.9 % 03/23/2017 Cbc With Differential Ord2 MCV 94.1 fl 03/23/2017 Cbc With Differential Ord2 Lymph% 6.1 % 03/23/2017 Cbc With Differential Ord2 Roberts% 10.7 % 03/23/2017 Cbc With Differential Ord2 [...] 0.31 K/ul 03/23/2017 Cbc With Differential Ord2 Roberts ABS# 0.6 K/ul 03/23/2017 Cbc With Differential Ord2 Eos ABS# 0.1 K/ul 03/23/2017 Cbc With Differential Ord2 Baso ABS# 0.0 K/ul 03/23/2017 Comp Metabolic Obo411 NA 140 mEq/L 03/23/2017 Comp Metabolic Zay744 K 4.4 mEq/L 03/23/2017 Comp Metabolic Iiz578 CL 105 mEq/L 03/23/2017 Comp Metabolic Ohf674 CO2 30.0 mEq/L 03/23/2017 Comp Metabolic Ajj575 ANION GAP 9 03/23/2017 Comp Metabolic Yhe940 GLUCOSE 75 mg/dL 03/23/2017 Comp Metabolic Bdn220 Creat 0.9 mg/dL 03/23/2017 Comp Metabolic Aih036 eGFR 87 ml/min/1.73m2 03/23/2017 Comp Metabolic Crh836 BUN 17 mg/dL 03/23/2017 Comp Metabolic Jlp050 B/C Ratio 18.7 Ratio 03/23/2017 Comp Metabolic Yji940 CALCIUM 9.0 mg/dL 03/23/2017 Comp Metabolic Ffx002 ALK PHOS 91 U/L 03/23/2017 Comp Metabolic Sgy409 AST(SGOT) 27 U/L 03/23/2017 Comp Metabolic Rlj540 ALT(SGPT) 30 U/L 03/23/2017 Comp Metabolic Qox396 BILI T 0.4 mg/dL 03/23/2017 Comp Metabolic Rxz392 ALBUMIN 3.8 g/dL 03/23/2017 Comp Metabolic Vct102 TPRO 6.1 g/dL 03/23/2017 Comp Metabolic Ild857 GLOB 2.3 g/dL 03/23/2017 Comp Metabolic Vwg288 A/G Ratio 1.7 Ratio 03/23/2017 Comp Metabolic Hop952 Osmo 280 mOsmo 03/23/2017 Magnesium Ord90 Mag 2.1 mg/dL 03/06/2017 Comp Metabolic Qxc825 NA 143 mEq/L 03/06/2017 Comp Metabolic Pnz802 K 4.1 mEq/L 03/06/2017 Comp Metabolic Emr134 CL 107 mEq/L 03/06/2017 Comp Metabolic Esh187 CO2 29.0 mEq/L 03/06/2017 Comp Metabolic Hjo474 ANION GAP 11 03/06/2017 Comp Metabolic Nqs839 GLUCOSE 129 mg/dL 03/06/2017 Comp Metabolic Waz583 Creat 0.9 mg/dL 03/06/2017 Comp Metabolic Tva474 eGFR 88 ml/min/1.73m2 03/06/2017 Comp Metabolic Cdz288 BUN 15 mg/dL 03/06/2017 Comp Metabolic Byi304 B/C Ratio 16.7 Ratio 03/06/2017 Comp Metabolic Fen774 CALCIUM 8.7 mg/dL 03/06/2017 Comp Metabolic Adr575 ALK PHOS 99 U/L 03/06/2017 Comp Metabolic Viq115 AST(SGOT) 29 U/L 03/06/2017 Comp Metabolic Zrk347 ALT(SGPT) 30 U/L 03/06/2017 Comp Metabolic Xwq933 BILI T 0.4 mg/dL 03/06/2017 Comp Metabolic Wzm488 ALBUMIN 3.8 g/dL 03/06/2017 Comp Metabolic Ror854 TPRO 5.9 g/dL 03/06/2017 Comp Metabolic Xip637 GLOB 2.1 g/dL 03/06/2017 Comp Metabolic Djw690 A/G Ratio 1.9 Ratio 03/06/2017 Comp Metabolic Sdn843 Osmo 288 mOsmo 03/06/2017 Uric Acid Ord77 Uric A 4.4 mg/dL 03/06/2017 Cbc With Differential Ord2 WBC 4.28 K/ul 03/06/2017 Cbc With Differential Ord2 RBC 4.63 M/ul 03/06/2017 Cbc With Differential Ord2 HGB 14.7 g/dl 03/06/2017 Cbc With Differential Ord2 Neut% 77.7 % 03/06/2017 Cbc With Differential Ord2 HCT 43.5 % 03/06/2017 Cbc With Differential Ord2 MCV 94.0 fl 03/06/2017 Cbc With Differential Ord2 Lymph% 7.7 % 03/06/2017 Cbc With Differential Ord2 MCH 31.7 pg 03/06/2017 Cbc With Differential Ord2 Roberts% 11.4 % 03/06/2017 Cbc With Differential Ord2 [...] 0.33 K/ul 03/06/2017 Cbc With Differential Ord2 Roberts ABS# 0.5 K/ul 03/06/2017 Cbc With Differential [...] 5.3 % 02/27/2017 Cbc With Differential Ord2 Roberts% 10.1 % 02/27/2017 Cbc With Differential Ord2 [...] 0.32 K/ul 02/27/2017 Cbc With Differential Ord2 Roberts ABS# 0.6 K/ul 02/27/2017 Cbc With Differential Ord2 Eos ABS# 0.1 K/ul 02/27/2017 Cbc With Differential Ord2 Baso ABS# 0.0 K/ul 02/27/2017 Magnesium Ord90 Mag 2.2 mg/dL 02/27/2017 Uric Acid Ord77 Uric A 5.5 mg/dL 02/27/2017 Comp Metabolic Xvv885 NA 141 mEq/L 02/27/2017 Comp Metabolic Tni995 K 4.5 mEq/L 02/27/2017 Comp Metabolic Sxd210 CL 105 mEq/L 02/27/2017 Comp Metabolic Fxf955 CO2 30.0 mEq/L 02/27/2017 Comp Metabolic Rzg402 ANION GAP 11 02/27/2017 Comp Metabolic Ijm732 GLUCOSE 73 mg/dL 02/27/2017 Comp Metabolic Elu030 Creat 0.9 mg/dL 02/27/2017 Comp Metabolic Stx799 eGFR 87 ml/min/1.73m2 02/27/2017 Comp Metabolic Jag168 BUN 17 mg/dL 02/27/2017 Comp Metabolic Qut935 B/C Ratio 18.7 Ratio 02/27/2017 Comp Metabolic Hzm941 CALCIUM 8.8 mg/dL 02/27/2017 Comp Metabolic Xdb022 ALK PHOS 93 U/L 02/27/2017 Comp Metabolic Dwz017 AST(SGOT) 31 U/L 02/27/2017 Comp Metabolic Rgm779 ALT(SGPT) 35 U/L 02/27/2017 Comp Metabolic Kla735 BILI T 0.4 mg/dL 02/27/2017 Comp Metabolic Rxc836 ALBUMIN 3.9 g/dL 02/27/2017 Comp Metabolic Whj168 TPRO 5.9 g/dL 02/27/2017 Comp Metabolic Xme992 GLOB 2.0 g/dL 02/27/2017 Comp Metabolic Ezd664 A/G Ratio 2.0 Ratio 02/27/2017 Comp Metabolic Fgy906 Osmo 281 mOsmo 02/27/2017 Cbc With Differential Ord2 WBC 5.58 K/ul 02/21/2017 Cbc With Differential Ord2 RBC 4.78 M/ul 02/21/2017 Cbc With Differential Ord2 HGB 15.3 g/dl 02/21/2017 Cbc With Differential Ord2 HCT 44.6 % 02/21/2017 Cbc With Differential Ord2 Neut% 82.7 % 02/21/2017 Cbc With Differential Ord2 MCV 93.3 fl 02/21/2017 Cbc With Differential Ord2 Lymph% 5.6 % 02/21/2017 Cbc With Differential Ord2 MCH 32.0 pg 02/21/2017 Cbc With Differential Ord2 Roberts% 9.0 % 02/21/2017 Cbc With Differential Ord2 MCHC 34.3 pg 02/21/2017 Cbc With Differential Ord2 Eos% 2.5 % 02/21/2017 Cbc With Differential Ord2 Baso% 0.2 % 02/21/2017 Cbc With Differential Ord2 PLT 191 K/ul 02/21/2017 Cbc With Differential Ord2 RDW 14.1 % 02/21/2017 Cbc With Differential Ord2 Neut ABS# 4.62 K/ul 02/21/2017 Cbc With Differential Ord2 Lymph ABS# 0.31 K/ul 02/21/2017 Cbc With Differential Ord2 Roberts ABS# 0.5 K/ul 02/21/2017 Cbc With Differential Ord2 Eos ABS# 0.1 K/ul 02/21/2017 Cbc With Differential Ord2 Baso ABS# 0.0 K/ul 02/21/2017 Magnesium Ord90 Mag 2.2 mg/dL 02/21/2017 Uric Acid Ord77 Uric A 5.0 mg/dL 02/21/2017 Comp Metabolic Krv997 NA 134 mEq/L 02/21/2017 Comp Metabolic Wsf304 K 4.3 mEq/L 02/21/2017 Comp Metabolic Jwa819 CL 100 mEq/L 02/21/2017 Comp Metabolic Ksa381 CO2 28.0 mEq/L 02/21/2017 Comp Metabolic Dao918 ANION GAP 10 02/21/2017 Comp Metabolic Apu104 GLUCOSE 130 mg/dL 02/21/2017 Comp Metabolic Ofx041 Creat 1.0 mg/dL 02/21/2017 Comp Metabolic Szh491 eGFR 77 ml/min/1.73m2 02/21/2017 Comp Metabolic Hqq984 BUN 17 mg/dL 02/21/2017 Comp Metabolic Zgo088 B/C Ratio 16.8 Ratio 02/21/2017 Comp Metabolic Zpe830 CALCIUM 9.1 mg/dL 02/21/2017 Comp Metabolic Dqn780 ALK PHOS 92 U/L 02/21/2017 Comp Metabolic Yet903 AST(SGOT) 23 U/L 02/21/2017 Comp Metabolic Bzu457 ALT(SGPT) 29 U/L 02/21/2017 Comp Metabolic Rke389 BILI T 0.3 mg/dL 02/21/2017 Comp Metabolic Ysv924 ALBUMIN 3.9 g/dL 02/21/2017 Comp Metabolic Qim361 TPRO 6.1 g/dL 02/21/2017 Comp Metabolic Xov412 GLOB 2.2 g/dL 02/21/2017 Comp Metabolic Yls714 A/G Ratio 1.8 Ratio 02/21/2017 Comp Metabolic Mdd986 Osmo 272 mOsmo 02/21/2017 Cbc With Differential Ord2 WBC 4.24 K/ul 02/07/2017 Cbc With Differential Ord2 RBC 4.67 M/ul 02/07/2017 Cbc With Differential Ord2 HGB 14.9 g/dl 02/07/2017 Cbc With Differential Ord2 Neut% 73.8 % 02/07/2017 Cbc With Differential Ord2 HCT 43.6 % 02/07/2017 Cbc With Differential Ord2 Lymph% 10.4 % 02/07/2017 Cbc With Differential Ord2 MCV 93.4 fl 02/07/2017 Cbc With Differential Ord2 Roberts% 12.0 % 02/07/2017 Cbc With Differential Ord2 MCH 31.9 pg 02/07/2017 Cbc With Differential Ord2 Eos% [...] 0.44 K/ul 02/07/2017 Cbc With Differential Ord2 Roberts ABS# 0.5 K/ul 02/07/2017 Cbc With Differential Ord2 Eos ABS# 0.1 K/ul 02/07/2017 Cbc With Differential Ord2 Baso ABS# 0.0 K/ul 02/07/2017 Magnesium Ord90 Mag 2.1 mg/dL 02/07/2017 Comp Metabolic Ygh688 NA 139 mEq/L 02/07/2017 Comp Metabolic Eaz878 K 4.6 mEq/L 02/07/2017 Comp Metabolic Omj608 CL 106 mEq/L 02/07/2017 Comp Metabolic Zzu722 CO2 29.0 mEq/L 02/07/2017 Comp Metabolic Djr733 ANION GAP 9 02/07/2017 Comp Metabolic Xzk913 GLUCOSE 99 mg/dL 02/07/2017 Comp Metabolic Ddv986 Creat 0.9 mg/dL 02/07/2017 Comp Metabolic Aca259 eGFR 92 ml/min/1.73m2 02/07/2017 Comp Metabolic Dto649 BUN 19 mg/dL 02/07/2017 Comp Metabolic Zak080 B/C Ratio 21.8 Ratio 02/07/2017 Comp Metabolic Ctl891 CALCIUM 8.8 mg/dL 02/07/2017 Comp Metabolic Kxi996 ALK PHOS 81 U/L 02/07/2017 Comp Metabolic Nsb307 AST(SGOT) 22 U/L 02/07/2017 Comp Metabolic Vso299 ALT(SGPT) 24 U/L 02/07/2017 Comp Metabolic Gnj047 BILI T 0.3 mg/dL 02/07/2017 Comp Metabolic Git346 ALBUMIN 3.9 g/dL 02/07/2017 Comp Metabolic Lbj985 TPRO 5.8 g/dL 02/07/2017 Comp Metabolic Rti487 GLOB 1.9 g/dL 02/07/2017 Comp Metabolic Fvo020 A/G Ratio 2.0 Ratio 02/07/2017 Comp Metabolic Gmf493 Osmo 280 mOsmo 02/07/2017 Uric Acid Ord77 Uric A 4.2 mg/dL 02/07/2017 Magnesium Ord90 Mag 2.1 mg/dL 01/31/2017 Comp Metabolic Vrc281 NA 142 mEq/L 01/31/2017 Comp Metabolic Nxo797 K 4.7 mEq/L 01/31/2017 Comp Metabolic Gbk346 CL 106 mEq/L 01/31/2017 Comp Metabolic Lgg304 CO2 32.0 mEq/L 01/31/2017 Comp Metabolic Drk815 ANION GAP 9 01/31/2017 Comp Metabolic Gyz923 GLUCOSE 93 mg/dL 01/31/2017 Comp Metabolic Icf669 Creat 1.0 mg/dL 01/31/2017 Comp Metabolic Hei498 eGFR 83 ml/min/1.73m2 01/31/2017 Comp Metabolic Hxz942 BUN 20 mg/dL 01/31/2017 Comp Metabolic Wky672 B/C Ratio 21.1 Ratio 01/31/2017 Comp Metabolic Pof792 CALCIUM 9.1 mg/dL 01/31/2017 Comp Metabolic Uxy980 ALK PHOS 80 U/L 01/31/2017 Comp Metabolic Hrk873 AST(SGOT) 22 U/L 01/31/2017 Comp Metabolic Faf867 ALT(SGPT) 24 U/L 01/31/2017 Comp Metabolic Hvu162 BILI T 0.4 mg/dL 01/31/2017 Comp Metabolic Ahh467 ALBUMIN 4.0 g/dL 01/31/2017 Comp Metabolic Ack848 TPRO 6.0 g/dL 01/31/2017 Comp Metabolic Kgd068 GLOB 2.1 g/dL 01/31/2017 Comp Metabolic Xyd083 A/G Ratio 1.9 Ratio 01/31/2017 Comp Metabolic Rtk650 Osmo 285 mOsmo 01/31/2017 Cbc With Differential [...] 5.3 % 01/31/2017 Cbc With Differential Ord2 Roberts% 7.9 % 01/31/2017 Cbc With Differential Ord2 [...] 0.38 K/ul 01/31/2017 Cbc With Differential Ord2 Roberts ABS# 0.6 K/ul 01/31/2017 Cbc With Differential Ord2 Eos ABS# 0.1 K/ul 01/31/2017 Cbc With Differential Ord2 Baso ABS# 0.0 K/ul 01/31/2017 Uric Acid Ord77 Uric A 4.9 mg/dL 01/31/2017 Comp Metabolic Vta612 NA 141 mEq/L 01/23/2017 Comp Metabolic Kpg599 K 4.4 mEq/L 01/23/2017 Comp Metabolic Ecw512 CL 104 mEq/L 01/23/2017 Comp Metabolic Nqs408 CO2 31.0 mEq/L 01/23/2017 Comp Metabolic Gus072 ANION GAP 10 01/23/2017 Comp Metabolic Mwh641 GLUCOSE 109 mg/dL 01/23/2017 Comp Metabolic Pkn985 Creat 1.1 mg/dL 01/23/2017 Comp Metabolic Ykx159 eGFR 71 ml/min/1.73m2 01/23/2017 Comp Metabolic Sjb972 BUN 22 mg/dL 01/23/2017 Comp Metabolic Wgs166 B/C Ratio 20.4 Ratio 01/23/2017 Comp Metabolic Maz420 CALCIUM 9.1 mg/dL 01/23/2017 Comp Metabolic Ldz656 ALK PHOS 76 U/L 01/23/2017 Comp Metabolic Agk240 AST(SGOT) 22 U/L 01/23/2017 Comp Metabolic Gow547 ALT(SGPT) 22 U/L 01/23/2017 Comp Metabolic Yeu965 BILI T 0.4 mg/dL 01/23/2017 Comp Metabolic Odo052 ALBUMIN 3.8 g/dL 01/23/2017 Comp Metabolic Icn030 TPRO 5.9 g/dL 01/23/2017 Comp Metabolic Oop662 GLOB 2.1 g/dL 01/23/2017 Comp Metabolic Qzg827 A/G Ratio 1.8 Ratio 01/23/2017 Comp Metabolic Wli571 Osmo 285 mOsmo 01/23/2017 Uric Acid Ord77 [...] 94.5 fl 01/23/2017 Cbc With Differential Ord2 Roberts% 8.9 % 01/23/2017 Cbc With Differential Ord2 [...] 0.42 K/ul 01/23/2017 Cbc With Differential Ord2 Roberts ABS# 0.5 K/ul 01/23/2017 Cbc With Differential [...] 9.6 % 01/10/2017 Cbc With Differential Ord2 Roberts% 9.6 % 01/10/2017 Cbc With Differential Ord2 MCH 31.9 pg 01/10/2017 Cbc With Differential Ord2 MCHC 33.7 pg 01/10/2017 Cbc With Differential Ord2 Eos% 1.9 % 01/10/2017 Cbc With Differential Ord2 Baso% 0.3 % 01/10/2017 Cbc With Differential Ord2 PLT 201 K/ul 01/10/2017 Cbc With Differential Ord2 RDW 14.6 % 01/10/2017 Cbc With Differential Ord2 Neut ABS# 5.05 K/ul 01/10/2017 Cbc With Differential Ord2 Lymph ABS# 0.62 K/ul 01/10/2017 Cbc With Differential Ord2 Roberts ABS# 0.6 K/ul 01/10/2017 Cbc With Differential Ord2 Eos ABS# 0.1 K/ul 01/10/2017 Cbc With Differential Ord2 Baso ABS# 0.0 K/ul 01/10/2017 Comp Metabolic Tqh668 NA 141 mEq/L 01/10/2017 Comp Metabolic Tgo638 K 4.8 mEq/L 01/10/2017 Comp Metabolic Lam760 CL 106 mEq/L 01/10/2017 Comp Metabolic Zof959 CO2 29.0 mEq/L 01/10/2017 Comp Metabolic Adb079 ANION GAP 11 01/10/2017 Comp Metabolic Ohb689 GLUCOSE 73 mg/dL 01/10/2017 Comp Metabolic Pib554 Creat 0.9 mg/dL 01/10/2017 Comp Metabolic Flo278 eGFR 93 ml/min/1.73m2 01/10/2017 Comp Metabolic Mgz544 BUN 19 mg/dL 01/10/2017 Comp Metabolic Kth379 B/C Ratio 22.1 Ratio 01/10/2017 Comp Metabolic Zwo162 CALCIUM 9.0 mg/dL 01/10/2017 Comp Metabolic Pbm304 ALK PHOS 80 U/L 01/10/2017 Comp Metabolic Eyh542 AST(SGOT) 24 U/L 01/10/2017 Comp Metabolic Okt086 ALT(SGPT) 28 U/L 01/10/2017 Comp Metabolic Vui471 BILI T 0.4 mg/dL 01/10/2017 Comp Metabolic Tiz285 ALBUMIN 3.8 g/dL 01/10/2017 Comp Metabolic Pvv171 TPRO 5.9 g/dL 01/10/2017 Comp Metabolic Lql257 GLOB 2.1 g/dL 01/10/2017 Comp Metabolic Zdm916 A/G Ratio 1.9 Ratio 01/10/2017 Comp Metabolic Kua482 Osmo 282 mOsmo 01/10/2017 Testosterone Xyn353 Testo 321.3 ng/dL 01/10/2017 Cbc With Differential [...] 31.8 pg 01/03/2017 Cbc With Differential Ord2 Roberts% 8.6 % 01/03/2017 Cbc With Differential Ord2 [...] 0.42 K/ul 01/03/2017 Cbc With Differential Ord2 Roberts ABS# 0.5 K/ul 01/03/2017 Cbc With Differential Ord2 Eos ABS# 0.1 K/ul 01/03/2017 Cbc With Differential Ord2 Baso ABS# 0.0 K/ul 01/03/2017 Comp Metabolic Ozy202 NA 140 mEq/L 01/03/2017 Comp Metabolic Dyt313 K 4.7 mEq/L 01/03/2017 Comp Metabolic Lww376 CL 106 mEq/L 01/03/2017 Comp Metabolic Fub063 CO2 28.0 mEq/L 01/03/2017 Comp Metabolic Ugb261 ANION GAP 11 01/03/2017 Comp Metabolic Abm745 GLUCOSE 126 mg/dL 01/03/2017 Comp Metabolic Nbz787 Creat 0.9 mg/dL 01/03/2017 Comp Metabolic Fqv546 eGFR 88 ml/min/1.73m2 01/03/2017 Comp Metabolic Zla081 BUN 23 mg/dL 01/03/2017 Comp Metabolic Rcj857 B/C Ratio 25.6 Ratio 01/03/2017 Comp Metabolic Bdj093 CALCIUM 8.8 mg/dL 01/03/2017 Comp Metabolic Gyj036 ALK PHOS 73 U/L 01/03/2017 Comp Metabolic Zuu795 AST(SGOT) 25 U/L 01/03/2017 Comp Metabolic Gjx342 ALT(SGPT) 30 U/L 01/03/2017 Comp Metabolic Kdf886 BILI T 0.4 mg/dL 01/03/2017 Comp Metabolic Crx815 ALBUMIN 3.9 g/dL 01/03/2017 Comp Metabolic Erk330 TPRO 5.9 g/dL 01/03/2017 Comp Metabolic Xjb284 GLOB 2.1 g/dL 01/03/2017 Comp Metabolic Shc056 A/G Ratio 1.9 Ratio 01/03/2017 Comp Metabolic Kdb642 Osmo 285 mOsmo 01/03/2017 Comp Metabolic Slt043 NA 140 mEq/L 12/12/2016 Comp Metabolic Ddj703 K 3.8 mEq/L 12/12/2016 Comp Metabolic Wlv828 CL 105 mEq/L 12/12/2016 Comp Metabolic Qmn797 CO2 26.0 mEq/L 12/12/2016 Comp Metabolic Sqt454 ANION GAP 13 12/12/2016 Comp Metabolic Nzw493 GLUCOSE 112 mg/dL 12/12/2016 Comp Metabolic Umj868 Creat 0.9 mg/dL 12/12/2016 Comp Metabolic Fsq705 eGFR 89 ml/min/1.73m2 12/12/2016 Comp Metabolic Qjr229 BUN 16 mg/dL 12/12/2016 Comp Metabolic Oxa778 B/C Ratio 18.0 Ratio 12/12/2016 Comp Metabolic Zxq735 CALCIUM 8.6 mg/dL 12/12/2016 Comp Metabolic Vqx062 ALK PHOS 80 U/L 12/12/2016 Comp Metabolic Opo472 AST(SGOT) 21 U/L 12/12/2016 Comp Metabolic Ceg062 ALT(SGPT) 23 U/L 12/12/2016 Comp Metabolic Ceh570 BILI T 0.4 mg/dL 12/12/2016 Comp Metabolic Afy296 ALBUMIN 3.7 g/dL 12/12/2016 Comp Metabolic Awo552 TPRO 5.6 g/dL 12/12/2016 Comp Metabolic Nby134 GLOB 1.9 g/dL 12/12/2016 Comp Metabolic Acf593 A/G Ratio 2.0 Ratio 12/12/2016 Comp Metabolic Deh657 Osmo 281 mOsmo 12/12/2016 Cbc With Differential Ord2 WBC 5.98 K/ul [...] 31.7 pg 12/12/2016 Cbc With Differential Ord2 Roberts% 8.9 % 12/12/2016 Cbc With Differential Ord2 MCHC 33.6 pg 12/12/2016 Cbc With Differential Ord2 Eos% 1.7 % 12/12/2016 Cbc With Differential Ord2 Baso% 0.8 % 12/12/2016 Cbc With Differential Ord2 PLT 186 K/ul 12/12/2016 Cbc With Differential Ord2 Neut ABS# 4.50 K/ul 12/12/2016 Cbc With Differential Ord2 RDW 14.6 % 12/12/2016 Cbc With Differential Ord2 Lymph ABS# 0.80 K/ul 12/12/2016 Cbc With Differential Ord2 Roberts ABS# 0.5 K/ul 12/12/2016 Cbc With Differential Ord2 Eos ABS# 0.1 K/ul 12/12/2016 Cbc With Differential Ord2 Baso ABS# 0.1 K/ul 12/12/2016 Cbc With Differential Ord2 WBC 7.85 K/ul 12/05/2016 Cbc With Differential Ord2 RBC 4.66 M/ul 12/05/2016 Cbc With Differential Ord2 HGB 14.6 g/dl 12/05/2016 Cbc With Differential Ord2 HCT 44.0 % 12/05/2016 Cbc With Differential Ord2 Neut% 73.6 % 12/05/2016 Cbc With Differential Ord2 MCV 94.4 fl 12/05/2016 Cbc With Differential Ord2 Lymph% 14.8 % 12/05/2016 Cbc With Differential Ord2 Roberts% 8.8 % 12/05/2016 Cbc With Differential Ord2 MCH 31.3 pg 12/05/2016 Cbc With Differential Ord2 Eos% [...] 1.16 K/ul 12/05/2016 Cbc With Differential Ord2 Roberts ABS# 0.7 K/ul 12/05/2016 Cbc With Differential Ord2 Eos ABS# 0.2 K/ul 12/05/2016 Cbc With Differential Ord2 Baso ABS# 0.0 K/ul 12/05/2016 Comp Metabolic Dif348 NA 140 mEq/L 12/05/2016 Comp Metabolic Kdj699 K 4.6 mEq/L 12/05/2016 Comp Metabolic Rur021 CL 104 mEq/L 12/05/2016 Comp Metabolic Pao974 CO2 29.0 mEq/L 12/05/2016 Comp Metabolic Hkn072 ANION GAP 12 12/05/2016 Comp Metabolic Hrh182 GLUCOSE 93 mg/dL 12/05/2016 Comp Metabolic Gii048 Creat 0.8 mg/dL 12/05/2016 Comp Metabolic Tsw927 eGFR 98 ml/min/1.73m2 12/05/2016 Comp Metabolic Yad040 BUN 20 mg/dL 12/05/2016 Comp Metabolic Mza234 B/C Ratio 24.4 Ratio 12/05/2016 Comp Metabolic Yeg660 CALCIUM 8.8 mg/dL 12/05/2016 Comp Metabolic Eml044 ALK PHOS 82 U/L 12/05/2016 Comp Metabolic Eqm729 AST(SGOT) 24 U/L 12/05/2016 Comp Metabolic Eom289 ALT(SGPT) 28 U/L 12/05/2016 Comp Metabolic Dvf458 BILI T 0.4 mg/dL 12/05/2016 Comp Metabolic Jdc437 ALBUMIN 3.9 g/dL 12/05/2016 Comp Metabolic Cld586 TPRO 5.9 g/dL 12/05/2016 Comp Metabolic Bfw259 GLOB 2.0 g/dL 12/05/2016 Comp Metabolic Jed001 A/G Ratio 2.0 Ratio 12/05/2016 Comp Metabolic Qsk042 Osmo 282 mOsmo 12/05/2016 Review of Systems System Result Effective Dates Constitutional recent illness 02/27/2017 Constitutional No chills [...] umbilical hernia- reducible Full Exam - General 1995 Lymphatic neck nodes Overall: shotty lymphadenopathy 12/05/2016 None Procedures No Procedures data Vital Signs Date Vital 02/27/2017 Blood Pressure 1: 126/66 Code : 8480-6 BMI: 30.2 Code : 94375-7 Heart Rate 1 : 61 bpm Height: 6' SpO2: 99% Weight: 223 lbs 01/10/2017 Blood Pressure 1: 136/70 Code : 8480-6 BMI: 30.0 Code : 87091-7 Heart Rate 1 : 62 bpm Height: 6' SpO2: 98% Weight: 221 lbs 8 oz 12/05/2016 Blood Pressure 1: 138/74 Code : 8480-6 BMI: 29.3 Code : 04900-5 Heart Rate 1 : 62 bpm Height: 6' SpO2: 98% Weight: 216 lbs Functional Status No Functional Status data History of Present Illness Symptom Name Status Result Effective Date Notes nausea Onset and Resolution ongoing 02/27/2017 None [...] data Encounters Encounter Performer Location Codes Date [id number]) [id number] EST. PATIENT, LEVEL IV Diagnosis: Chronic lymphocytic leukemia of B-cell type not having achieved remission[ICD10: C91.10] Diagnosis: Periumbilical pain[ICD10: R10.33] [facility] CPT-4: [address] 02/27/2017 ([id number]) [id number] EST. 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] Diagnosis: Umbilical hernia without obstruction or gangrene[ICD10: K42.9] [facility] CPT-4: 70280 01/10/2017 ([id number]) OFFICE VISIT, NEW - LEVEL 4 Diagnosis: Umbilical hernia without obstruction or gangrene[ICD10: K42.9] Diagnosis: Periumbilical pain[ICD10: R10.33] Diagnosis: Chronic lymphocytic leukemia of B-cell type not having achieved remission[ICD10: C91.10] Diagnosis: Slow transit constipation[ICD10: K59.01] [facility] CPT-4: 40375 12/05/2016 Plan of Care Planned Activity Notes Codes Status Date Appointment: [facility]riet Salomon WPtel: [address] [place], [place] [phone] (15 min) Moderate 02/27/2017 Patient Education: Patient Medication Summary Completed 02/27/2017 Patient Education: Obesity Completed 02/27/2017 Appointment: Harriet Salomon WPtel: [address] [place], [place] [phone] [place] (15 min) Moderate 01/10/2017 Patient Education: Patient Medication Summary Completed 01/10/2017 Patient Education: Obesity Completed 01/10/2017 Care Plan: ASSAY OF TOTAL TESTOSTERONE LOINC : 17729-1 Pending 01/10/2017 Appointment: Harriet Salomon WPtel: [address] [place], [place] [phone] [place] (15 min) Moderate 01/02/2017 Appointment: Harriet Salomon WPtel: [address] [place], [place] [phone] New Patient 12/05/2016 Patient Education: Patient Medication Summary Completed 12/05/2016 Instructions No Instructions
--- OUTSIDE RECORDS SUMMARY | 2018-05-10 18:51 | XMS REPORT | CCD ---
Author Author [facility] Organization [facility] Address [address] [place] [address] Phone Care Team Providers Care Generation Engineering Technologist Name Role Phone PP Unavailable CCM Unavailable Summary Purpose Interface Exchange Insurance Providers Payer name Policy type / Coverage type Covered democrat ID Effective Begin Date Effective End Date WPS Medicare Part B Medicare Part B [id number] Unknown Unknown AARP Medicare Part B [id number] Unknown Unknown Family history Father Diagnosis Age At Onset brain cancer Unknown Skin cancer Unknown Mother Diagnosis Age At Onset Cancer Unknown Daughter Diagnosis Age At Onset Celiac disease Unknown Social History Social History Element Codes Description Effective Dates Marital status Unknown Single 12/05/2016 Number of children Unknown 2 12/05/2016 Employment Unknown 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[facility] [employer] 12/05/[address]: 915895777 Never smoker 12/05/[address]: 759418 Currently drinks alcohol 12/05/2016 Frequency of drinks SNOMED CT: 413474811 1-4 drinks per week 12/05/2016 Has the [...] Instructions mupirocin 2 % topical cream RxNorm: 962657 1 Application TOP BID 02/27/2017 03/08/2017 Inactive meclizine 25 mg tablet RxNorm: 341595 1 Tablet(s) PO TID as needed nausea 01/27/2017 03/27/2017 Inactive meclizine 25 mg tablet RxNorm: 818515 1 Tablet(s) PO TID as needed nausea 01/27/2017 01/26/2017 Inactive scopolamine 1 mg over 3 days transdermal patch RxNorm: 355565 1 TD Q72H 01/10/2017 02/26/2017 Inactive vitamin [...] Result Date Cbc With Differential Ord2 WBC 4.98 K/ul [...] 31.8 pg 04/25/2017 Cbc With Differential Ord2 [place]% 10.2 % 04/25/2017 Cbc With Differential Ord2 [...] 0.32 K/ul 04/25/2017 Cbc With Differential Ord2 [place] ABS# 0.5 K/ul 04/25/2017 Cbc With Differential Ord2 Eos ABS# 0.1 K/ul 04/25/2017 Cbc With Differential Ord2 Baso ABS# 0.0 K/ul 04/25/2017 Comp Metabolic Wet903 NA 142 mEq/L 04/18/2017 Comp Metabolic Vzd951 K 4.3 mEq/L 04/18/2017 Comp Metabolic Jue647 CL 105 mEq/L 04/18/2017 Comp Metabolic Hsg493 CO2 30.0 mEq/L 04/18/2017 Comp Metabolic Etj791 ANION GAP 11 04/18/2017 Comp Metabolic Qvb639 GLUCOSE 126 mg/dL 04/18/2017 Comp Metabolic Cpj327 Creat 1.0 mg/dL 04/18/2017 Comp Metabolic Odm493 eGFR 83 ml/min/1.73m2 04/18/2017 Comp Metabolic Pnx891 BUN 17 mg/dL 04/18/2017 Comp Metabolic Njh875 B/C Ratio 17.9 Ratio 04/18/2017 Comp Metabolic Opc908 CALCIUM 9.0 mg/dL 04/18/2017 Comp Metabolic Lbs763 ALK PHOS 100 U/L 04/18/2017 Comp Metabolic Jyn149 AST(SGOT) 27 U/L 04/18/2017 Comp Metabolic Vfo275 ALT(SGPT) 36 U/L 04/18/2017 Comp Metabolic Ntk569 BILI T 0.5 mg/dL 04/18/2017 Comp Metabolic Kdh762 ALBUMIN 3.8 g/dL 04/18/2017 Comp Metabolic Wix464 TPRO 6.0 g/dL 04/18/2017 Comp Metabolic Isl376 GLOB 2.2 g/dL 04/18/2017 Comp Metabolic Rqj995 A/G Ratio 1.8 Ratio 04/18/2017 Comp Metabolic Rkj521 Osmo 286 mOsmo 04/18/2017 Uric Acid Ord77 Uric A 5.9 mg/dL 04/18/2017 Cbc With Differential Ord2 WBC 3.86 K/ul 04/18/2017 Cbc With Differential Ord2 RBC 4.86 M/ul 04/18/2017 Cbc With Differential Ord2 HGB 15.7 g/dl 04/18/2017 Cbc With Differential Ord2 HCT 45.7 % 04/18/2017 Cbc With Differential Ord2 Neut% 81.3 % 04/18/2017 Cbc With Differential Ord2 Lymph% 6.0 % 04/18/2017 Cbc With Differential Ord2 MCV 94.0 fl 04/18/2017 Cbc With Differential Ord2 MCH 32.3 pg 04/18/2017 Cbc With Differential Ord2 [place]% 9.6 % 04/18/2017 Cbc With Differential Ord2 [...] 0.23 K/ul 04/18/2017 Cbc With Differential Ord2 [place] ABS# 0.4 K/ul 04/18/2017 Cbc With Differential [...] 32.0 pg 03/30/2017 Cbc With Differential Ord2 [place]% 12.1 % 03/30/2017 Cbc With Differential Ord2 [...] 0.42 K/ul 03/30/2017 Cbc With Differential Ord2 [place] ABS# 0.8 K/ul 03/30/2017 Cbc With Differential Ord2 Eos ABS# 0.1 K/ul 03/30/2017 Cbc With Differential Ord2 Baso ABS# 0.0 K/ul 03/30/2017 Comp Metabolic Rvd072 NA 141 mEq/L 03/30/2017 Comp Metabolic Qsi056 K 4.7 mEq/L 03/30/2017 Comp Metabolic Kwr016 CL 106 mEq/L 03/30/2017 Comp Metabolic Rhi377 CO2 28.0 mEq/L 03/30/2017 Comp Metabolic Zsb558 ANION GAP 12 03/30/2017 Comp Metabolic Our393 GLUCOSE 81 mg/dL 03/30/2017 Comp Metabolic Giy268 Creat 1.0 mg/dL 03/30/2017 Comp Metabolic Gav069 eGFR 80 ml/min/1.73m2 03/30/2017 Comp Metabolic Fys008 BUN 17 mg/dL 03/30/2017 Comp Metabolic Hxi375 B/C Ratio 17.3 Ratio 03/30/2017 Comp Metabolic Inu928 CALCIUM 8.9 mg/dL 03/30/2017 Comp Metabolic Ptb412 ALK PHOS 106 U/L 03/30/2017 Comp Metabolic Uzc435 AST(SGOT) 52 U/L 03/30/2017 Comp Metabolic Bly344 ALT(SGPT) 54 U/L 03/30/2017 Comp Metabolic Xrw230 BILI T 0.4 mg/dL 03/30/2017 Comp Metabolic Pbw252 ALBUMIN 3.8 g/dL 03/30/2017 Comp Metabolic Zht073 TPRO 6.2 g/dL 03/30/2017 Comp Metabolic Xum965 GLOB 2.4 g/dL 03/30/2017 Comp Metabolic Wqc320 A/G Ratio 1.6 Ratio 03/30/2017 Comp Metabolic Dno628 Osmo 282 mOsmo 03/30/2017 Uric Acid Ord77 [...] 32.0 pg 03/23/2017 Cbc With Differential Ord2 [place]% 10.7 % 03/23/2017 Cbc With Differential Ord2 [...] 0.31 K/ul 03/23/2017 Cbc With Differential Ord2 [place] ABS# 0.6 K/ul 03/23/2017 Cbc With Differential Ord2 Eos ABS# 0.1 K/ul 03/23/2017 Cbc With Differential Ord2 Baso ABS# 0.0 K/ul 03/23/2017 Magnesium Ord90 Mag 2.0 mg/dL 03/23/2017 Comp Metabolic Utf074 NA 140 mEq/L 03/23/2017 Comp Metabolic Bmn943 K 4.4 mEq/L 03/23/2017 Comp Metabolic Vxr290 CL 105 mEq/L 03/23/2017 Comp Metabolic Xzx990 CO2 30.0 mEq/L 03/23/2017 Comp Metabolic Zxs448 ANION GAP 9 03/23/2017 Comp Metabolic Tlm250 GLUCOSE 75 mg/dL 03/23/2017 Comp Metabolic Ewp452 Creat 0.9 mg/dL 03/23/2017 Comp Metabolic Qhp842 eGFR 87 ml/min/1.73m2 03/23/2017 Comp Metabolic Luw690 BUN 17 mg/dL 03/23/2017 Comp Metabolic Klb248 B/C Ratio 18.7 Ratio 03/23/2017 Comp Metabolic Ick747 CALCIUM 9.0 mg/dL 03/23/2017 Comp Metabolic Emx688 ALK PHOS 91 U/L 03/23/2017 Comp Metabolic Akp726 AST(SGOT) 27 U/L 03/23/2017 Comp Metabolic Lfl671 ALT(SGPT) 30 U/L 03/23/2017 Comp Metabolic Mph682 BILI T 0.4 mg/dL 03/23/2017 Comp Metabolic Dmp450 ALBUMIN 3.8 g/dL 03/23/2017 Comp Metabolic Yxw153 TPRO 6.1 g/dL 03/23/2017 Comp Metabolic Yse896 GLOB 2.3 g/dL 03/23/2017 Comp Metabolic Djb477 A/G Ratio 1.7 Ratio 03/23/2017 Comp Metabolic Ygw273 Osmo 280 mOsmo 03/23/2017 Uric Acid Ord77 [...] 31.7 pg 03/06/2017 Cbc With Differential Ord2 [place]% 11.4 % 03/06/2017 Cbc With Differential Ord2 MCHC 33.8 pg 03/06/2017 Cbc With Differential Ord2 Eos% 3.0 % 03/06/2017 Cbc With Differential Ord2 PLT 164 K/ul 03/06/2017 Cbc With Differential Ord2 Baso% 0.2 % 03/06/2017 Cbc With Differential Ord2 RDW 14.0 % 03/06/2017 Cbc With Differential Ord2 Neut ABS# 3.32 K/ul 03/06/2017 Cbc With Differential Ord2 Lymph ABS# 0.33 K/ul 03/06/2017 Cbc With Differential Ord2 [place] ABS# 0.5 K/ul 03/06/2017 Cbc With Differential Ord2 Eos ABS# 0.1 K/ul 03/06/2017 Cbc With Differential Ord2 Baso ABS# 0.0 K/ul 03/06/2017 Comp Metabolic Qbe311 NA 143 mEq/L 03/06/2017 Comp Metabolic Bsi972 K 4.1 mEq/L 03/06/2017 Comp Metabolic Slk519 CL 107 mEq/L 03/06/2017 Comp Metabolic Exe702 CO2 29.0 mEq/L 03/06/2017 Comp Metabolic Fbi537 ANION GAP 11 03/06/2017 Comp Metabolic Mwn886 GLUCOSE 129 mg/dL 03/06/2017 Comp Metabolic Zjf451 Creat 0.9 mg/dL 03/06/2017 Comp Metabolic Umn108 eGFR 88 ml/min/1.73m2 03/06/2017 Comp Metabolic Kdd125 BUN 15 mg/dL 03/06/2017 Comp Metabolic Itn989 B/C Ratio 16.7 Ratio 03/06/2017 Comp Metabolic Ung230 CALCIUM 8.7 mg/dL 03/06/2017 Comp Metabolic Bvv503 ALK PHOS 99 U/L 03/06/2017 Comp Metabolic Fcs788 AST(SGOT) 29 U/L 03/06/2017 Comp Metabolic Axm504 ALT(SGPT) 30 U/L 03/06/2017 Comp Metabolic Aar594 BILI T 0.4 mg/dL 03/06/2017 Comp Metabolic Jhu952 ALBUMIN 3.8 g/dL 03/06/2017 Comp Metabolic Dwg750 TPRO 5.9 g/dL 03/06/2017 Comp Metabolic Qcv348 GLOB 2.1 g/dL 03/06/2017 Comp Metabolic Gtc073 A/G Ratio 1.9 Ratio 03/06/2017 Comp Metabolic Lle797 Osmo 288 mOsmo 03/06/2017 Cbc With Differential Ord2 WBC 6.05 K/ul 02/27/2017 Cbc With Differential Ord2 RBC 4.58 M/ul 02/27/2017 Cbc With Differential Ord2 HGB 14.7 g/dl 02/27/2017 Cbc With Differential Ord2 Neut% 81.9 % 02/27/2017 Cbc With Differential Ord2 HCT 43.1 % 02/27/2017 Cbc With Differential Ord2 MCV 94.1 fl 02/27/2017 Cbc With Differential Ord2 Lymph% 5.3 % 02/27/2017 Cbc With Differential Ord2 MCH 32.1 pg 02/27/2017 Cbc With Differential Ord2 [place]% 10.1 % 02/27/2017 Cbc With Differential Ord2 [...] 0.32 K/ul 02/27/2017 Cbc With Differential Ord2 [place] ABS# 0.6 K/ul 02/27/2017 Cbc With Differential Ord2 Eos ABS# 0.1 K/ul 02/27/2017 Cbc With Differential Ord2 Baso ABS# 0.0 K/ul 02/27/2017 Uric Acid Ord77 Uric A 5.5 mg/dL 02/27/2017 Magnesium Ord90 Mag 2.2 mg/dL 02/27/2017 Comp Metabolic Bdh344 NA 141 mEq/L 02/27/2017 Comp Metabolic Vzz333 K 4.5 mEq/L 02/27/2017 Comp Metabolic Rxn359 CL 105 mEq/L 02/27/2017 Comp Metabolic Wqa043 CO2 30.0 mEq/L 02/27/2017 Comp Metabolic Adg984 ANION GAP 11 02/27/2017 Comp Metabolic Guf678 GLUCOSE 73 mg/dL 02/27/2017 Comp Metabolic Hnq675 Creat 0.9 mg/dL 02/27/2017 Comp Metabolic Yak010 eGFR 87 ml/min/1.73m2 02/27/2017 Comp Metabolic Ndc703 BUN 17 mg/dL 02/27/2017 Comp Metabolic Tia075 B/C Ratio 18.7 Ratio 02/27/2017 Comp Metabolic Cvl643 CALCIUM 8.8 mg/dL 02/27/2017 Comp Metabolic Ung581 ALK PHOS 93 U/L 02/27/2017 Comp Metabolic Uip661 AST(SGOT) 31 U/L 02/27/2017 Comp Metabolic Aky629 ALT(SGPT) 35 U/L 02/27/2017 Comp Metabolic Cqj956 BILI T 0.4 mg/dL 02/27/2017 Comp Metabolic Fam247 ALBUMIN 3.9 g/dL 02/27/2017 Comp Metabolic Tew620 TPRO 5.9 g/dL 02/27/2017 Comp Metabolic Aad567 GLOB 2.0 g/dL 02/27/2017 Comp Metabolic Mza235 A/G Ratio 2.0 Ratio 02/27/2017 Comp Metabolic Yhe313 Osmo 281 mOsmo 02/27/2017 Magnesium Ord90 Mag [...] 32.0 pg 02/21/2017 Cbc With Differential Ord2 [place]% 9.0 % 02/21/2017 Cbc With Differential Ord2 [...] 0.31 K/ul 02/21/2017 Cbc With Differential Ord2 [place] ABS# 0.5 K/ul 02/21/2017 Cbc With Differential Ord2 Eos ABS# 0.1 K/ul 02/21/2017 Cbc With Differential Ord2 Baso ABS# 0.0 K/ul 02/21/2017 Uric Acid Ord77 Uric A 5.0 mg/dL 02/21/2017 Comp Metabolic Svx751 NA 134 mEq/L 02/21/2017 Comp Metabolic Jrl063 K 4.3 mEq/L 02/21/2017 Comp Metabolic Fem727 CL 100 mEq/L 02/21/2017 Comp Metabolic Ijz311 CO2 28.0 mEq/L 02/21/2017 Comp Metabolic Gcm859 ANION GAP 10 02/21/2017 Comp Metabolic Ocp620 GLUCOSE 130 mg/dL 02/21/2017 Comp Metabolic Dnw423 Creat 1.0 mg/dL 02/21/2017 Comp Metabolic Qpa791 eGFR 77 ml/min/1.73m2 02/21/2017 Comp Metabolic Mhj505 BUN 17 mg/dL 02/21/2017 Comp Metabolic Vhi223 B/C Ratio 16.8 Ratio 02/21/2017 Comp Metabolic Fpe184 CALCIUM 9.1 mg/dL 02/21/2017 Comp Metabolic Auc028 ALK PHOS 92 U/L 02/21/2017 Comp Metabolic Xje088 AST(SGOT) 23 U/L 02/21/2017 Comp Metabolic Kiq490 ALT(SGPT) 29 U/L 02/21/2017 Comp Metabolic Pzj692 BILI T 0.3 mg/dL 02/21/2017 Comp Metabolic Vvh262 ALBUMIN 3.9 g/dL 02/21/2017 Comp Metabolic Gct482 TPRO 6.1 g/dL 02/21/2017 Comp Metabolic Scg058 GLOB 2.2 g/dL 02/21/2017 Comp Metabolic Yqr414 A/G Ratio 1.8 Ratio 02/21/2017 Comp Metabolic Ycv139 Osmo 272 mOsmo 02/21/2017 Uric Acid Ord77 Uric A 4.2 mg/dL 02/07/2017 Comp Metabolic Yoy940 NA 139 mEq/L 02/07/2017 Comp Metabolic Omb623 K 4.6 mEq/L 02/07/2017 Comp Metabolic Vut171 CL 106 mEq/L 02/07/2017 Comp Metabolic Jft100 CO2 29.0 mEq/L 02/07/2017 Comp Metabolic Ihe201 ANION GAP 9 02/07/2017 Comp Metabolic Ufh774 GLUCOSE 99 mg/dL 02/07/2017 Comp Metabolic Num729 Creat 0.9 mg/dL 02/07/2017 Comp Metabolic Nxy018 eGFR 92 ml/min/1.73m2 02/07/2017 Comp Metabolic Kvl621 BUN 19 mg/dL 02/07/2017 Comp Metabolic Jml397 B/C Ratio 21.8 Ratio 02/07/2017 Comp Metabolic Wza887 CALCIUM 8.8 mg/dL 02/07/2017 Comp Metabolic Xir698 ALK PHOS 81 U/L 02/07/2017 Comp Metabolic Lao920 AST(SGOT) 22 U/L 02/07/2017 Comp Metabolic Ode517 ALT(SGPT) 24 U/L 02/07/2017 Comp Metabolic Gnw123 BILI T 0.3 mg/dL 02/07/2017 Comp Metabolic Gtb346 ALBUMIN 3.9 g/dL 02/07/2017 Comp Metabolic Ixw549 TPRO 5.8 g/dL 02/07/2017 Comp Metabolic Cdu718 GLOB 1.9 g/dL 02/07/2017 Comp Metabolic Iao009 A/G Ratio 2.0 Ratio 02/07/2017 Comp Metabolic Cec385 Osmo 280 mOsmo 02/07/2017 Cbc With Differential [...] 31.9 pg 02/07/2017 Cbc With Differential Ord2 [place]% 12.0 % 02/07/2017 Cbc With Differential Ord2 [...] 0.44 K/ul 02/07/2017 Cbc With Differential Ord2 [place] ABS# 0.5 K/ul 02/07/2017 Cbc With Differential Ord2 Eos ABS# 0.1 K/ul 02/07/2017 Cbc With Differential Ord2 Baso ABS# 0.0 K/ul 02/07/2017 Magnesium Ord90 Mag 2.1 mg/dL 02/07/2017 Comp Metabolic Kyn421 NA 142 mEq/L 01/31/2017 Comp Metabolic Clq968 K 4.7 mEq/L 01/31/2017 Comp Metabolic Iqk038 CL 106 mEq/L 01/31/2017 Comp Metabolic Vhs415 CO2 32.0 mEq/L 01/31/2017 Comp Metabolic Sog849 ANION GAP 9 01/31/2017 Comp Metabolic Qmh107 GLUCOSE 93 mg/dL 01/31/2017 Comp Metabolic Wvp257 Creat 1.0 mg/dL 01/31/2017 Comp Metabolic Nyb147 eGFR 83 ml/min/1.73m2 01/31/2017 Comp Metabolic Bro724 BUN 20 mg/dL 01/31/2017 Comp Metabolic Qee964 B/C Ratio 21.1 Ratio 01/31/2017 Comp Metabolic Shi804 CALCIUM 9.1 mg/dL 01/31/2017 Comp Metabolic Npy352 ALK PHOS 80 U/L 01/31/2017 Comp Metabolic Zvd099 AST(SGOT) 22 U/L 01/31/2017 Comp Metabolic Rjb697 ALT(SGPT) 24 U/L 01/31/2017 Comp Metabolic Ikm717 BILI T 0.4 mg/dL 01/31/2017 Comp Metabolic Gxg110 ALBUMIN 4.0 g/dL 01/31/2017 Comp Metabolic Fnw423 TPRO 6.0 g/dL 01/31/2017 Comp Metabolic Itq129 GLOB 2.1 g/dL 01/31/2017 Comp Metabolic Bov809 A/G Ratio 1.9 Ratio 01/31/2017 Comp Metabolic Pff017 Osmo 285 mOsmo 01/31/2017 Cbc With Differential [...] 31.9 pg 01/31/2017 Cbc With Differential Ord2 [place]% 7.9 % 01/31/2017 Cbc With Differential Ord2 MCHC 33.8 pg 01/31/2017 Cbc With Differential Ord2 Eos% 1.7 % 01/31/2017 Cbc With Differential Ord2 PLT 173 K/ul 01/31/2017 Cbc With Differential Ord2 Baso% 0.1 % 01/31/2017 Cbc With Differential Ord2 RDW 14.5 % 01/31/2017 Cbc With Differential Ord2 Neut ABS# 6.05 K/ul 01/31/2017 Cbc With Differential Ord2 Lymph ABS# 0.38 K/ul 01/31/2017 Cbc With Differential Ord2 [place] ABS# 0.6 K/ul 01/31/2017 Cbc With Differential [...] 32.1 pg 01/23/2017 Cbc With Differential Ord2 [place]% 8.9 % 01/23/2017 Cbc With Differential Ord2 [...] 0.42 K/ul 01/23/2017 Cbc With Differential Ord2 [place] ABS# 0.5 K/ul 01/23/2017 Cbc With Differential Ord2 Eos ABS# 0.1 K/ul 01/23/2017 Cbc With Differential Ord2 Baso ABS# 0.0 K/ul 01/23/2017 Uric Acid Ord77 Uric A 5.4 mg/dL 01/23/2017 Comp Metabolic Vxz860 NA 141 mEq/L 01/23/2017 Comp Metabolic Ykj873 K 4.4 mEq/L 01/23/2017 Comp Metabolic Ewu468 CL 104 mEq/L 01/23/2017 Comp Metabolic Ecx865 CO2 31.0 mEq/L 01/23/2017 Comp Metabolic Hpr445 ANION GAP 10 01/23/2017 Comp Metabolic Rgf651 GLUCOSE 109 mg/dL 01/23/2017 Comp Metabolic Icl555 Creat 1.1 mg/dL 01/23/2017 Comp Metabolic Ifh765 eGFR 71 ml/min/1.73m2 01/23/2017 Comp Metabolic Rlt225 BUN 22 mg/dL 01/23/2017 Comp Metabolic Vkp004 B/C Ratio 20.4 Ratio 01/23/2017 Comp Metabolic Jps008 CALCIUM 9.1 mg/dL 01/23/2017 Comp Metabolic Shc105 ALK PHOS 76 U/L 01/23/2017 Comp Metabolic Els922 AST(SGOT) 22 U/L 01/23/2017 Comp Metabolic Khl422 ALT(SGPT) 22 U/L 01/23/2017 Comp Metabolic Tog326 BILI T 0.4 mg/dL 01/23/2017 Comp Metabolic Cxc263 ALBUMIN 3.8 g/dL 01/23/2017 Comp Metabolic Xua465 TPRO 5.9 g/dL 01/23/2017 Comp Metabolic Tvy365 GLOB 2.1 g/dL 01/23/2017 Comp Metabolic Brw055 A/G Ratio 1.8 Ratio 01/23/2017 Comp Metabolic Ccn565 Osmo 285 mOsmo 01/23/2017 Testosterone Ghn484 Testo 321.3 ng/dL 01/10/2017 Comp Metabolic Ift509 NA 141 mEq/L 01/10/2017 Comp Metabolic Fzz683 K 4.8 mEq/L 01/10/2017 Comp Metabolic Uqf944 CL 106 mEq/L 01/10/2017 Comp Metabolic Dek238 CO2 29.0 mEq/L 01/10/2017 Comp Metabolic Ton697 ANION GAP 11 01/10/2017 Comp Metabolic Dyb303 GLUCOSE 73 mg/dL 01/10/2017 Comp Metabolic Xmb093 Creat 0.9 mg/dL 01/10/2017 Comp Metabolic Gea857 eGFR 93 ml/min/1.73m2 01/10/2017 Comp Metabolic Ycg871 BUN 19 mg/dL 01/10/2017 Comp Metabolic Gvn312 B/C Ratio 22.1 Ratio 01/10/2017 Comp Metabolic Kxv726 CALCIUM 9.0 mg/dL 01/10/2017 Comp Metabolic Ezd135 ALK PHOS 80 U/L 01/10/2017 Comp Metabolic Ezz036 AST(SGOT) 24 U/L 01/10/2017 Comp Metabolic Kvk825 ALT(SGPT) 28 U/L 01/10/2017 Comp Metabolic Dbt977 BILI T 0.4 mg/dL 01/10/2017 Comp Metabolic Esj297 ALBUMIN 3.8 g/dL 01/10/2017 Comp Metabolic Epj027 TPRO 5.9 g/dL 01/10/2017 Comp Metabolic Vfx203 GLOB 2.1 g/dL 01/10/2017 Comp Metabolic Unm664 A/G Ratio 1.9 Ratio 01/10/2017 Comp Metabolic Vyi745 Osmo 282 mOsmo 01/10/2017 Cbc With Differential Ord2 WBC 6.43 K/ul 01/10/2017 Cbc With Differential Ord2 RBC 4.61 M/ul 01/10/2017 Cbc With Differential Ord2 HGB 14.7 g/dl 01/10/2017 Cbc With Differential Ord2 Neut% 78.6 % 01/10/2017 Cbc With Differential Ord2 HCT 43.6 % 01/10/2017 Cbc With Differential Ord2 MCV 94.6 fl 01/10/2017 Cbc With Differential Ord2 Lymph% 9.6 % 01/10/2017 Cbc With Differential Ord2 MCH 31.9 pg 01/10/2017 Cbc With Differential Ord2 [place]% 9.6 % 01/10/2017 Cbc With Differential Ord2 [...] 0.62 K/ul 01/10/2017 Cbc With Differential Ord2 [place] ABS# 0.6 K/ul 01/10/2017 Cbc With Differential [...] 31.8 pg 01/03/2017 Cbc With Differential Ord2 [place]% 8.6 % 01/03/2017 Cbc With Differential Ord2 [...] 0.42 K/ul 01/03/2017 Cbc With Differential Ord2 [place] ABS# 0.5 K/ul 01/03/2017 Cbc With Differential Ord2 Eos ABS# 0.1 K/ul 01/03/2017 Cbc With Differential Ord2 Baso ABS# 0.0 K/ul 01/03/2017 Comp Metabolic Oih844 NA 140 mEq/L 01/03/2017 Comp Metabolic Fhx982 K 4.7 mEq/L 01/03/2017 Comp Metabolic Wuu829 CL 106 mEq/L 01/03/2017 Comp Metabolic Wcg234 CO2 28.0 mEq/L 01/03/2017 Comp Metabolic Vto671 ANION GAP 11 01/03/2017 Comp Metabolic Rus803 GLUCOSE 126 mg/dL 01/03/2017 Comp Metabolic Ftx143 Creat 0.9 mg/dL 01/03/2017 Comp Metabolic Rcw267 eGFR 88 ml/min/1.73m2 01/03/2017 Comp Metabolic Nsk561 BUN 23 mg/dL 01/03/2017 Comp Metabolic Ali984 B/C Ratio 25.6 Ratio 01/03/2017 Comp Metabolic Hkr989 CALCIUM 8.8 mg/dL 01/03/2017 Comp Metabolic Fcg541 ALK PHOS 73 U/L 01/03/2017 Comp Metabolic Zzf891 AST(SGOT) 25 U/L 01/03/2017 Comp Metabolic Agu068 ALT(SGPT) 30 U/L 01/03/2017 Comp Metabolic Zpw782 BILI T 0.4 mg/dL 01/03/2017 Comp Metabolic Plk671 ALBUMIN 3.9 g/dL 01/03/2017 Comp Metabolic Yhi351 TPRO 5.9 g/dL 01/03/2017 Comp Metabolic Kmb084 GLOB 2.1 g/dL 01/03/2017 Comp Metabolic Dqu394 A/G Ratio 1.9 Ratio 01/03/2017 Comp Metabolic Mqy136 Osmo 285 mOsmo 01/03/2017 Cbc With Differential [...] 31.7 pg 12/12/2016 Cbc With Differential Ord2 [place]% 8.9 % 12/12/2016 Cbc With Differential Ord2 [...] 0.80 K/ul 12/12/2016 Cbc With Differential Ord2 [place] ABS# 0.5 K/ul 12/12/2016 Cbc With Differential Ord2 Eos ABS# 0.1 K/ul 12/12/2016 Cbc With Differential Ord2 Baso ABS# 0.1 K/ul 12/12/2016 Comp Metabolic Usu863 NA 140 mEq/L 12/12/2016 Comp Metabolic Lys847 K 3.8 mEq/L 12/12/2016 Comp Metabolic Lty427 CL 105 mEq/L 12/12/2016 Comp Metabolic Obw839 CO2 26.0 mEq/L 12/12/2016 Comp Metabolic Owc087 ANION GAP 13 12/12/2016 Comp Metabolic Ads844 GLUCOSE 112 mg/dL 12/12/2016 Comp Metabolic Xbk273 Creat 0.9 mg/dL 12/12/2016 Comp Metabolic Roz939 eGFR 89 ml/min/1.73m2 12/12/2016 Comp Metabolic Ysx342 BUN 16 mg/dL 12/12/2016 Comp Metabolic Ruj459 B/C Ratio 18.0 Ratio 12/12/2016 Comp Metabolic Fas775 CALCIUM 8.6 mg/dL 12/12/2016 Comp Metabolic Kor217 ALK PHOS 80 U/L 12/12/2016 Comp Metabolic Mjt404 AST(SGOT) 21 U/L 12/12/2016 Comp Metabolic Ieq795 ALT(SGPT) 23 U/L 12/12/2016 Comp Metabolic Mdx871 BILI T 0.4 mg/dL 12/12/2016 Comp Metabolic Jna861 ALBUMIN 3.7 g/dL 12/12/2016 Comp Metabolic Uct481 TPRO 5.6 g/dL 12/12/2016 Comp Metabolic Uqa149 GLOB 1.9 g/dL 12/12/2016 Comp Metabolic Mre591 A/G Ratio 2.0 Ratio 12/12/2016 Comp Metabolic Oxg653 Osmo 281 mOsmo 12/12/2016 Comp Metabolic Zzf088 NA 140 mEq/L 12/05/2016 Comp Metabolic Ivv735 K 4.6 mEq/L 12/05/2016 Comp Metabolic Wnh446 CL 104 mEq/L 12/05/2016 Comp Metabolic Ecc470 CO2 29.0 mEq/L 12/05/2016 Comp Metabolic Jnv303 ANION GAP 12 12/05/2016 Comp Metabolic Bvf855 GLUCOSE 93 mg/dL 12/05/2016 Comp Metabolic Wzz079 Creat 0.8 mg/dL 12/05/2016 Comp Metabolic Kps780 eGFR 98 ml/min/1.73m2 12/05/2016 Comp Metabolic Yej612 BUN 20 mg/dL 12/05/2016 Comp Metabolic Dhg644 B/C Ratio 24.4 Ratio 12/05/2016 Comp Metabolic Efr591 CALCIUM 8.8 mg/dL 12/05/2016 Comp Metabolic Gbk723 ALK PHOS 82 U/L 12/05/2016 Comp Metabolic Izl255 AST(SGOT) 24 U/L 12/05/2016 Comp Metabolic Nvo091 ALT(SGPT) 28 U/L 12/05/2016 Comp Metabolic Zlx303 BILI T 0.4 mg/dL 12/05/2016 Comp Metabolic Ieg865 ALBUMIN 3.9 g/dL 12/05/2016 Comp Metabolic Pmr916 TPRO 5.9 g/dL 12/05/2016 Comp Metabolic Kzi544 GLOB 2.0 g/dL 12/05/2016 Comp Metabolic Emh621 A/G Ratio 2.0 Ratio 12/05/2016 Comp Metabolic Ypk971 Osmo 282 mOsmo 12/05/2016 Cbc With Differential [...] 31.3 pg 12/05/2016 Cbc With Differential Ord2 [place]% 8.8 % 12/05/2016 Cbc With Differential Ord2 MCHC 33.2 pg 12/05/2016 Cbc With Differential Ord2 Eos% 2.3 % 12/05/2016 Cbc With Differential Ord2 PLT 196 K/ul 12/05/2016 Cbc With Differential Ord2 Baso% 0.5 % 12/05/2016 Cbc With Differential Ord2 RDW 15.2 % 12/05/2016 Cbc With Differential Ord2 Neut ABS# 5.78 K/ul 12/05/2016 Cbc With Differential Ord2 Lymph ABS# 1.16 K/ul 12/05/2016 Cbc With Differential Ord2 [place] ABS# 0.7 K/ul 12/05/2016 Cbc With Differential [...] Code : 8480-6 BMI: 30.2 Code : 22068-4 Heart Rate 1 : 61 bpm Height: 6' SpO2: 99% Weight: 223 lbs 01/10/2017 Blood Pressure 1: 136/70 Code : 8480-6 BMI: 30.0 Code : 88762-0 Heart Rate 1 : 62 bpm Height: 6' SpO2: 98% Weight: 221 lbs 8 oz 12/05/2016 Blood Pressure 1: 138/74 Code : 8480-6 BMI: 29.3 Code : 87534-2 Heart Rate 1 : 62 bpm Height: [...] data Encounters Encounter Performer Location Codes Date ([id number]) [id number] EST. 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 Umbilical hernia - agree with plans for pt to have re-evaluation with surgeon after his chemotherapy is complete. 02/27/2017 [id number] ([facility] min) Moderate 02/27/2017 Patient Education: [...] is completed. 01/10/2017 [id number] ([facility] min) Moderate 01/10/2017 Patient Education: Patient Medication Summary Completed 01/10/2017 Patient Education: Obesity Completed 01/10/2017 Care Plan: ASSAY OF TOTAL TESTOSTERONE LOINC : 93800-6 Pending 01/10/2017 Appointment: Harriet Salomon WPtel: [phone] [id number] (15 min) Moderate 01/02/2017 Visit Plan: Umbilical [...] this regimen. 12/05/2016 Appointment: [facility] [id number] [facility] 12/05/2016 Patient Education: Patient Medication Summary Completed 12/05/2016 Instructions Comment please have the milk wagon driver look at the rough area below your [...] symptoms not improved on this regimen. . Decreased Libido - check testosterone level. CLL - chronic on chemotherapy - continue with course through March. Umbilical Hernia - recommend for patient to call if his symptoms are acutely worsening. I have recommended patient to plan for surgery in March after his chemotherapy is completed. . CLL - continue with chemotherapy. Umbilical hernia - agree with plans for pt to have re-evaluation with surgeon after his chemotherapy is complete.
--- OUTSIDE RECORDS SUMMARY | 2018-05-10 18:53 | XMS REPORT | CCD ---
Author Author [facility] Organization [facility] Address [address] [place] [address] Phone Care Team Providers Care Block Captain Name Role Phone PP Unavailable CCM Unavailable Summary Purpose Interface Exchange Insurance Providers Payer name Policy type / Coverage type Covered democrat ID Effective Begin Date Effective End Date WPS Medicare Part B Medicare Part B [id number] Unknown Unknown AARP Medicare Part B [id number] Unknown Unknown Family history Father Diagnosis Age At Onset brain cancer Unknown Skin cancer Unknown Mother Diagnosis Age At Onset Cancer Unknown Daughter Diagnosis Age At Onset Celiac disease Unknown Social History Social History Element Codes Description Effective Dates Marital status Unknown Single 12/05/2016 Number of children Unknown 2 12/05/2016 Employment Unknown 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 Unknown Has never used illegal drugs 12/05/2016 Allergies, Adverse Reactions, Alerts Allergies, Adverse Reactions, Alerts data not found Past Medical History Illness Codes Condition Status Onset Date Resolved Date Chronic lymphocytic leukemia of B-cell type not having achieved remission ICD-9: 204.10 ICD-10: C91.10 Active 12/05/2016 Unknown Pain in left hip ICD-9 : 719.45 ICD-10: M25.552 Active 05/03/2017 Unknown Pain in left knee ICD- 9: 719.46 ICD-10: M25.562 Active 05/03/2017 Unknown Pain in right hip ICD- 9: 719.45 ICD-10: M25.551 Active 05/03/2017 Unknown Pain in right knee ICD -9: 719.46 ICD-10: M25.561 Active 05/03/2017 Unknown Umbilical hernia without obstruction or gangrene ICD-9: 553.1 ICD-10: K42.9 Active 12/05/2016 Unknown Periumbilical pain ICD -9: 789.05 ICD-10: R10.33 Active 12/05/2016 Unknown Decreased libido ICD-9 : 799.81 ICD-10: R68.82 Active 01/10/2017 Unknown Slow transit constipation ICD-9: 564.01 ICD-10: K59.01 Active 12/05/2016 Unknown Problems Condition Codes Effective Dates Condition Status Chronic lymphocytic leukemia of B-cell type not having achieved remission ICD-9: 204.10 ICD-10: C91.10 12/05/2016 Active Pain in left hip ICD-9 : 719.45 ICD-10: M25.552 05/03/2017 Active Pain in left knee ICD- 9: 719.46 ICD-10: M25.562 05/03/2017 Active Pain in right hip ICD- 9: 719.45 ICD-10: M25.551 05/03/2017 Active Pain in right knee ICD -9: 719.46 ICD-10: M25.561 05/03/2017 Active Umbilical hernia without obstruction or gangrene ICD-9: 553.1 ICD-10: K42.9 12/05/2016 Active Periumbilical pain ICD -9: 789.05 ICD-10: R10.33 12/05/2016 Active Decreased libido ICD-9 : 799.81 ICD-10: R68.82 01/10/2017 Active Slow transit constipation ICD-9: 564.01 ICD-10: K59.01 12/05/2016 Active Medications Medication Codes Instructions Start Date Stop Date Status Fill Instructions mupirocin 2 % topical cream RxNorm: 885784 1 Application TOP BID 02/27/2017 03/08/2017 Inactive meclizine 25 mg tablet RxNorm: 189536 1 Tablet(s) PO TID as needed nausea 01/27/2017 03/27/2017 Inactive meclizine 25 mg tablet RxNorm: 110536 1 Tablet(s) PO TID as needed nausea 01/27/2017 01/26/2017 Inactive scopolamine 1 mg over 3 days transdermal patch RxNorm: 141372 1 TD Q72H 01/10/2017 02/26/2017 Inactive vitamin E (dl, acetate) oral RxNorm: oral No Start Date Active Medication Administered No Medication Administered data Immunizations No Immunization data Assessments Condition Codes Effective Dates Pain in left knee ICD-10: M25.562 ICD-9: 719.46 05/03/2017 Pain in right hip ICD-10: M25.551 ICD-9: 719.45 05/03/2017 Pain in right knee ICD-10: M25.561 ICD-9: 719.46 05/03/2017 Pain in left hip ICD-10: M25.552 ICD-9: 719.45 05/03/2017 Umbilical hernia without obstruction or gangrene ICD-10: K42.9 ICD-9: 553.1 05/03/2017 Chronic lymphocytic leukemia of B-cell type not having achieved remission ICD-10: C91.10 ICD-9: 204.10 05/03/2017 Periumbilical pain ICD-10: R10.33 ICD-9: 789.05 02/27/2017 Decreased libido ICD-10: R68.82 ICD-9: 799.81 01/10/2017 Slow transit constipation ICD-10: K59.01 ICD-9: 564.01 12/05/2016 Reason For Visit Reason For Visit Effective Dates Notes arthralgia(s) 05/03/2017 nausea 02/27/2017 nausea 01/10/2017 nausea 12/05/2016 Results Observation Observation Code Item Item Code Result Date Magnesium Ord90 Mag 2.2 mg/dL 04/25/2017 Comp Metabolic Wpf811 NA 143 mEq/L 04/25/2017 Comp Metabolic Uiz894 K 4.2 mEq/L 04/25/2017 Comp Metabolic Uwm374 CL 108 mEq/L 04/25/2017 Comp Metabolic Qar854 CO2 30.0 mEq/L 04/25/2017 Comp Metabolic Jrw534 ANION GAP 9 04/25/2017 Comp Metabolic Ebi052 GLUCOSE 80 mg/dL 04/25/2017 Comp Metabolic Zwc502 Creat 0.9 mg/dL 04/25/2017 Comp Metabolic Ahf566 eGFR 84 ml/min/1.73m2 04/25/2017 Comp Metabolic Eqm026 BUN 16 mg/dL 04/25/2017 Comp Metabolic Iyb210 B/C Ratio 17.0 Ratio 04/25/2017 Comp Metabolic Geu947 CALCIUM 9.0 mg/dL 04/25/2017 Comp Metabolic Fhh424 ALK PHOS 93 U/L 04/25/2017 Comp Metabolic Xmg111 AST(SGOT) 32 U/L 04/25/2017 Comp Metabolic Cle225 ALT(SGPT) 36 U/L 04/25/2017 Comp Metabolic Mbd203 BILI T 0.5 mg/dL 04/25/2017 Comp Metabolic Rfq062 ALBUMIN 3.9 g/dL 04/25/2017 Comp Metabolic Ctx119 TPRO 6.0 g/dL 04/25/2017 Comp Metabolic Kdg696 GLOB 2.1 g/dL 04/25/2017 Comp Metabolic Skp816 A/G Ratio 1.8 Ratio 04/25/2017 Comp Metabolic Mwa171 Osmo 285 mOsmo 04/25/2017 Cbc With Differential [...] 31.8 pg 04/25/2017 Cbc With Differential Ord2 [place]% 10.2 % 04/25/2017 Cbc With Differential Ord2 [...] 0.32 K/ul 04/25/2017 Cbc With Differential Ord2 [place] ABS# 0.5 K/ul 04/25/2017 Cbc With Differential Ord2 Eos ABS# 0.1 K/ul 04/25/2017 Cbc With Differential Ord2 Baso ABS# 0.0 K/ul 04/25/2017 Uric Acid Ord77 Uric A 6.0 mg/dL 04/25/2017 Comp Metabolic Lit285 NA 142 mEq/L 04/18/2017 Comp Metabolic Dss477 K 4.3 mEq/L 04/18/2017 Comp Metabolic Evl664 CL 105 mEq/L 04/18/2017 Comp Metabolic Wov095 CO2 30.0 mEq/L 04/18/2017 Comp Metabolic Was352 ANION GAP 11 04/18/2017 Comp Metabolic Cxa959 GLUCOSE 126 mg/dL 04/18/2017 Comp Metabolic Cyu304 Creat 1.0 mg/dL 04/18/2017 Comp Metabolic Anx102 eGFR 83 ml/min/1.73m2 04/18/2017 Comp Metabolic Whd735 BUN 17 mg/dL 04/18/2017 Comp Metabolic Qnv335 B/C Ratio 17.9 Ratio 04/18/2017 Comp Metabolic Rem658 CALCIUM 9.0 mg/dL 04/18/2017 Comp Metabolic Jfi327 ALK PHOS 100 U/L 04/18/2017 Comp Metabolic Vcn279 AST(SGOT) 27 U/L 04/18/2017 Comp Metabolic Hde608 ALT(SGPT) 36 U/L 04/18/2017 Comp Metabolic Cbe593 BILI T 0.5 mg/dL 04/18/2017 Comp Metabolic Fxm364 ALBUMIN 3.8 g/dL 04/18/2017 Comp Metabolic Osi404 TPRO 6.0 g/dL 04/18/2017 Comp Metabolic Ife811 GLOB 2.2 g/dL 04/18/2017 Comp Metabolic Tvw211 A/G Ratio 1.8 Ratio 04/18/2017 Comp Metabolic Pmr467 Osmo 286 mOsmo 04/18/2017 Uric Acid Ord77 [...] 32.3 pg 04/18/2017 Cbc With Differential Ord2 [place]% 9.6 % 04/18/2017 Cbc With Differential Ord2 [...] 0.23 K/ul 04/18/2017 Cbc With Differential Ord2 [place] ABS# 0.4 K/ul 04/18/2017 Cbc With Differential [...] 32.0 pg 03/30/2017 Cbc With Differential Ord2 [place]% 12.1 % 03/30/2017 Cbc With Differential Ord2 [...] 0.42 K/ul 03/30/2017 Cbc With Differential Ord2 [place] ABS# 0.8 K/ul 03/30/2017 Cbc With Differential Ord2 Eos ABS# 0.1 K/ul 03/30/2017 Cbc With Differential Ord2 Baso ABS# 0.0 K/ul 03/30/2017 Comp Metabolic Mro170 NA 141 mEq/L 03/30/2017 Comp Metabolic Tdb839 K 4.7 mEq/L 03/30/2017 Comp Metabolic Cbu897 CL 106 mEq/L 03/30/2017 Comp Metabolic Qvd595 CO2 28.0 mEq/L 03/30/2017 Comp Metabolic Yig426 ANION GAP 12 03/30/2017 Comp Metabolic Drr662 GLUCOSE 81 mg/dL 03/30/2017 Comp Metabolic Frf203 Creat 1.0 mg/dL 03/30/2017 Comp Metabolic Czg388 eGFR 80 ml/min/1.73m2 03/30/2017 Comp Metabolic Kyu886 BUN 17 mg/dL 03/30/2017 Comp Metabolic Xjb071 B/C Ratio 17.3 Ratio 03/30/2017 Comp Metabolic Gqc814 CALCIUM 8.9 mg/dL 03/30/2017 Comp Metabolic Uih084 ALK PHOS 106 U/L 03/30/2017 Comp Metabolic Yue980 AST(SGOT) 52 U/L 03/30/2017 Comp Metabolic Jpb684 ALT(SGPT) 54 U/L 03/30/2017 Comp Metabolic Iau161 BILI T 0.4 mg/dL 03/30/2017 Comp Metabolic Sny152 ALBUMIN 3.8 g/dL 03/30/2017 Comp Metabolic Vpj924 TPRO 6.2 g/dL 03/30/2017 Comp Metabolic Pxp686 GLOB 2.4 g/dL 03/30/2017 Comp Metabolic Uod577 A/G Ratio 1.6 Ratio 03/30/2017 Comp Metabolic Bos819 Osmo 282 mOsmo 03/30/2017 Uric Acid Ord77 [...] 6.1 % 03/23/2017 Cbc With Differential Ord2 [place]% 10.7 % 03/23/2017 Cbc With Differential Ord2 [...] 0.31 K/ul 03/23/2017 Cbc With Differential Ord2 [place] ABS# 0.6 K/ul 03/23/2017 Cbc With Differential Ord2 Eos ABS# 0.1 K/ul 03/23/2017 Cbc With Differential Ord2 Baso ABS# 0.0 K/ul 03/23/2017 Magnesium Ord90 Mag 2.0 mg/dL 03/23/2017 Comp Metabolic Zhk279 NA 140 mEq/L 03/23/2017 Comp Metabolic Cjs234 K 4.4 mEq/L 03/23/2017 Comp Metabolic Dxt403 CL 105 mEq/L 03/23/2017 Comp Metabolic Ipd659 CO2 30.0 mEq/L 03/23/2017 Comp Metabolic Hin644 ANION GAP 9 03/23/2017 Comp Metabolic Geu339 GLUCOSE 75 mg/dL 03/23/2017 Comp Metabolic Tdj348 Creat 0.9 mg/dL 03/23/2017 Comp Metabolic Mab869 eGFR 87 ml/min/1.73m2 03/23/2017 Comp Metabolic Dnf656 BUN 17 mg/dL 03/23/2017 Comp Metabolic Gra897 B/C Ratio 18.7 Ratio 03/23/2017 Comp Metabolic Qey948 CALCIUM 9.0 mg/dL 03/23/2017 Comp Metabolic Von321 ALK PHOS 91 U/L 03/23/2017 Comp Metabolic Qqm273 AST(SGOT) 27 U/L 03/23/2017 Comp Metabolic Oxp990 ALT(SGPT) 30 U/L 03/23/2017 Comp Metabolic Ves256 BILI T 0.4 mg/dL 03/23/2017 Comp Metabolic Bmy904 ALBUMIN 3.8 g/dL 03/23/2017 Comp Metabolic Sea083 TPRO 6.1 g/dL 03/23/2017 Comp Metabolic Iih309 GLOB 2.3 g/dL 03/23/2017 Comp Metabolic Uor653 A/G Ratio 1.7 Ratio 03/23/2017 Comp Metabolic Yce590 Osmo 280 mOsmo 03/23/2017 Uric Acid Ord77 [...] 31.7 pg 03/06/2017 Cbc With Differential Ord2 [place]% 11.4 % 03/06/2017 Cbc With Differential Ord2 [...] 0.33 K/ul 03/06/2017 Cbc With Differential Ord2 [place] ABS# 0.5 K/ul 03/06/2017 Cbc With Differential Ord2 Eos ABS# 0.1 K/ul 03/06/2017 Cbc With Differential Ord2 Baso ABS# 0.0 K/ul 03/06/2017 Comp Metabolic Gdt407 NA 143 mEq/L 03/06/2017 Comp Metabolic Cge497 K 4.1 mEq/L 03/06/2017 Comp Metabolic Ock425 CL 107 mEq/L 03/06/2017 Comp Metabolic Maa231 CO2 29.0 mEq/L 03/06/2017 Comp Metabolic Tsn778 ANION GAP 11 03/06/2017 Comp Metabolic Xcl594 GLUCOSE 129 mg/dL 03/06/2017 Comp Metabolic Hwb987 Creat 0.9 mg/dL 03/06/2017 Comp Metabolic Gah759 eGFR 88 ml/min/1.73m2 03/06/2017 Comp Metabolic Cbt239 BUN 15 mg/dL 03/06/2017 Comp Metabolic Zbl388 B/C Ratio 16.7 Ratio 03/06/2017 Comp Metabolic Zkr327 CALCIUM 8.7 mg/dL 03/06/2017 Comp Metabolic Mww198 ALK PHOS 99 U/L 03/06/2017 Comp Metabolic Tth389 AST(SGOT) 29 U/L 03/06/2017 Comp Metabolic Ftz640 ALT(SGPT) 30 U/L 03/06/2017 Comp Metabolic Mow919 BILI T 0.4 mg/dL 03/06/2017 Comp Metabolic Juu907 ALBUMIN 3.8 g/dL 03/06/2017 Comp Metabolic Wpu382 TPRO 5.9 g/dL 03/06/2017 Comp Metabolic Doz989 GLOB 2.1 g/dL 03/06/2017 Comp Metabolic Ukj501 A/G Ratio 1.9 Ratio 03/06/2017 Comp Metabolic Odp238 Osmo 288 mOsmo 03/06/2017 Cbc With Differential [...] 94.1 fl 02/27/2017 Cbc With Differential Ord2 [place]% 10.1 % 02/27/2017 Cbc With Differential Ord2 [...] 0.32 K/ul 02/27/2017 Cbc With Differential Ord2 [place] ABS# 0.6 K/ul 02/27/2017 Cbc With Differential Ord2 Eos ABS# 0.1 K/ul 02/27/2017 Cbc With Differential Ord2 Baso ABS# 0.0 K/ul 02/27/2017 Uric Acid Ord77 Uric A 5.5 mg/dL 02/27/2017 Magnesium Ord90 Mag 2.2 mg/dL 02/27/2017 Comp Metabolic Xtk025 NA 141 mEq/L 02/27/2017 Comp Metabolic Bgf509 K 4.5 mEq/L 02/27/2017 Comp Metabolic Mht782 CL 105 mEq/L 02/27/2017 Comp Metabolic Bcc565 CO2 30.0 mEq/L 02/27/2017 Comp Metabolic Wpr072 ANION GAP 11 02/27/2017 Comp Metabolic Dac605 GLUCOSE 73 mg/dL 02/27/2017 Comp Metabolic Wmn968 Creat 0.9 mg/dL 02/27/2017 Comp Metabolic Sga315 eGFR 87 ml/min/1.73m2 02/27/2017 Comp Metabolic Pwv834 BUN 17 mg/dL 02/27/2017 Comp Metabolic Pid690 B/C Ratio 18.7 Ratio 02/27/2017 Comp Metabolic Txf862 CALCIUM 8.8 mg/dL 02/27/2017 Comp Metabolic Dam034 ALK PHOS 93 U/L 02/27/2017 Comp Metabolic Vxe205 AST(SGOT) 31 U/L 02/27/2017 Comp Metabolic Kbw654 ALT(SGPT) 35 U/L 02/27/2017 Comp Metabolic Ups880 BILI T 0.4 mg/dL 02/27/2017 Comp Metabolic Lsy399 ALBUMIN 3.9 g/dL 02/27/2017 Comp Metabolic Foy885 TPRO 5.9 g/dL 02/27/2017 Comp Metabolic Bey774 GLOB 2.0 g/dL 02/27/2017 Comp Metabolic Jgw719 A/G Ratio 2.0 Ratio 02/27/2017 Comp Metabolic Vzs177 Osmo 281 mOsmo 02/27/2017 Magnesium Ord90 Mag [...] 32.0 pg 02/21/2017 Cbc With Differential Ord2 [place]% 9.0 % 02/21/2017 Cbc With Differential Ord2 [...] 0.31 K/ul 02/21/2017 Cbc With Differential Ord2 [place] ABS# 0.5 K/ul 02/21/2017 Cbc With Differential Ord2 Eos ABS# 0.1 K/ul 02/21/2017 Cbc With Differential Ord2 Baso ABS# 0.0 K/ul 02/21/2017 Uric Acid Ord77 Uric A 5.0 mg/dL 02/21/2017 Comp Metabolic Xgj735 NA 134 mEq/L 02/21/2017 Comp Metabolic Cfu232 K 4.3 mEq/L 02/21/2017 Comp Metabolic Afd600 CL 100 mEq/L 02/21/2017 Comp Metabolic Qdh712 CO2 28.0 mEq/L 02/21/2017 Comp Metabolic Nhk712 ANION GAP 10 02/21/2017 Comp Metabolic Qic851 GLUCOSE 130 mg/dL 02/21/2017 Comp Metabolic Kfs227 Creat 1.0 mg/dL 02/21/2017 Comp Metabolic Ryu023 eGFR 77 ml/min/1.73m2 02/21/2017 Comp Metabolic Gqk804 BUN 17 mg/dL 02/21/2017 Comp Metabolic Goh618 B/C Ratio 16.8 Ratio 02/21/2017 Comp Metabolic Xms346 CALCIUM 9.1 mg/dL 02/21/2017 Comp Metabolic Rtm892 ALK PHOS 92 U/L 02/21/2017 Comp Metabolic Rmp499 AST(SGOT) 23 U/L 02/21/2017 Comp Metabolic Seo981 ALT(SGPT) 29 U/L 02/21/2017 Comp Metabolic Gvl575 BILI T 0.3 mg/dL 02/21/2017 Comp Metabolic Juc942 ALBUMIN 3.9 g/dL 02/21/2017 Comp Metabolic Fme651 TPRO 6.1 g/dL 02/21/2017 Comp Metabolic Obo772 GLOB 2.2 g/dL 02/21/2017 Comp Metabolic Njr062 A/G Ratio 1.8 Ratio 02/21/2017 Comp Metabolic Npg045 Osmo 272 mOsmo 02/21/2017 Uric Acid Ord77 Uric A 4.2 mg/dL 02/07/2017 Comp Metabolic Bbt145 NA 139 mEq/L 02/07/2017 Comp Metabolic Cmp000 K 4.6 mEq/L 02/07/2017 Comp Metabolic Eel161 CL 106 mEq/L 02/07/2017 Comp Metabolic Ans123 CO2 29.0 mEq/L 02/07/2017 Comp Metabolic Yky391 ANION GAP 9 02/07/2017 Comp Metabolic Kkp352 GLUCOSE 99 mg/dL 02/07/2017 Comp Metabolic Qmq588 Creat 0.9 mg/dL 02/07/2017 Comp Metabolic Dgh612 eGFR 92 ml/min/1.73m2 02/07/2017 Comp Metabolic Dtr579 BUN 19 mg/dL 02/07/2017 Comp Metabolic Jjh032 B/C Ratio 21.8 Ratio 02/07/2017 Comp Metabolic Rrx946 CALCIUM 8.8 mg/dL 02/07/2017 Comp Metabolic Rud973 ALK PHOS 81 U/L 02/07/2017 Comp Metabolic Qqn571 AST(SGOT) 22 U/L 02/07/2017 Comp Metabolic Eoj896 ALT(SGPT) 24 U/L 02/07/2017 Comp Metabolic Fmo371 BILI T 0.3 mg/dL 02/07/2017 Comp Metabolic Vqt373 ALBUMIN 3.9 g/dL 02/07/2017 Comp Metabolic Nvg541 TPRO 5.8 g/dL 02/07/2017 Comp Metabolic Qpc344 GLOB 1.9 g/dL 02/07/2017 Comp Metabolic Dwg493 A/G Ratio 2.0 Ratio 02/07/2017 Comp Metabolic Pbl793 Osmo 280 mOsmo 02/07/2017 Cbc With Differential [...] 31.9 pg 02/07/2017 Cbc With Differential Ord2 [place]% 12.0 % 02/07/2017 Cbc With Differential Ord2 [...] 0.44 K/ul 02/07/2017 Cbc With Differential Ord2 [place] ABS# 0.5 K/ul 02/07/2017 Cbc With Differential Ord2 Eos ABS# 0.1 K/ul 02/07/2017 Cbc With Differential Ord2 Baso ABS# 0.0 K/ul 02/07/2017 Magnesium Ord90 Mag 2.1 mg/dL 02/07/2017 Comp Metabolic Rob308 NA 142 mEq/L 01/31/2017 Comp Metabolic Zon496 K 4.7 mEq/L 01/31/2017 Comp Metabolic Put588 CL 106 mEq/L 01/31/2017 Comp Metabolic Zdi000 CO2 32.0 mEq/L 01/31/2017 Comp Metabolic Eor553 ANION GAP 9 01/31/2017 Comp Metabolic Phb306 GLUCOSE 93 mg/dL 01/31/2017 Comp Metabolic Tdz240 Creat 1.0 mg/dL 01/31/2017 Comp Metabolic Cta986 eGFR 83 ml/min/1.73m2 01/31/2017 Comp Metabolic Jnk420 BUN 20 mg/dL 01/31/2017 Comp Metabolic Fco918 B/C Ratio 21.1 Ratio 01/31/2017 Comp Metabolic Cmb415 CALCIUM 9.1 mg/dL 01/31/2017 Comp Metabolic Vcm037 ALK PHOS 80 U/L 01/31/2017 Comp Metabolic Qqi458 AST(SGOT) 22 U/L 01/31/2017 Comp Metabolic Ejd822 ALT(SGPT) 24 U/L 01/31/2017 Comp Metabolic Agr538 BILI T 0.4 mg/dL 01/31/2017 Comp Metabolic Pdp280 ALBUMIN 4.0 g/dL 01/31/2017 Comp Metabolic Tzg002 TPRO 6.0 g/dL 01/31/2017 Comp Metabolic Rbb371 GLOB 2.1 g/dL 01/31/2017 Comp Metabolic Pbp169 A/G Ratio 1.9 Ratio 01/31/2017 Comp Metabolic Dsi906 Osmo 285 mOsmo 01/31/2017 Cbc With Differential [...] 5.3 % 01/31/2017 Cbc With Differential Ord2 [place]% 7.9 % 01/31/2017 Cbc With Differential Ord2 [...] 0.38 K/ul 01/31/2017 Cbc With Differential Ord2 [place] ABS# 0.6 K/ul 01/31/2017 Cbc With Differential [...] 32.1 pg 01/23/2017 Cbc With Differential Ord2 [place]% 8.9 % 01/23/2017 Cbc With Differential Ord2 [...] 0.42 K/ul 01/23/2017 Cbc With Differential Ord2 [place] ABS# 0.5 K/ul 01/23/2017 Cbc With Differential Ord2 Eos ABS# 0.1 K/ul 01/23/2017 Cbc With Differential Ord2 Baso ABS# 0.0 K/ul 01/23/2017 Uric Acid Ord77 Uric A 5.4 mg/dL 01/23/2017 Comp Metabolic Vdb927 NA 141 mEq/L 01/23/2017 Comp Metabolic Brl694 K 4.4 mEq/L 01/23/2017 Comp Metabolic Uhq325 CL 104 mEq/L 01/23/2017 Comp Metabolic Orv683 CO2 31.0 mEq/L 01/23/2017 Comp Metabolic Zws266 ANION GAP 10 01/23/2017 Comp Metabolic Car715 GLUCOSE 109 mg/dL 01/23/2017 Comp Metabolic Obg549 Creat 1.1 mg/dL 01/23/2017 Comp Metabolic Zvw900 eGFR 71 ml/min/1.73m2 01/23/2017 Comp Metabolic Mrb994 BUN 22 mg/dL 01/23/2017 Comp Metabolic Yfi457 B/C Ratio 20.4 Ratio 01/23/2017 Comp Metabolic Nfs486 CALCIUM 9.1 mg/dL 01/23/2017 Comp Metabolic Uut489 ALK PHOS 76 U/L 01/23/2017 Comp Metabolic Woe173 AST(SGOT) 22 U/L 01/23/2017 Comp Metabolic Nbv642 ALT(SGPT) 22 U/L 01/23/2017 Comp Metabolic Rpb071 BILI T 0.4 mg/dL 01/23/2017 Comp Metabolic Bzv809 ALBUMIN 3.8 g/dL 01/23/2017 Comp Metabolic Vzk460 TPRO 5.9 g/dL 01/23/2017 Comp Metabolic Zyt762 GLOB 2.1 g/dL 01/23/2017 Comp Metabolic Yko792 A/G Ratio 1.8 Ratio 01/23/2017 Comp Metabolic Qhw150 Osmo 285 mOsmo 01/23/2017 Testosterone Xvr345 Testo 321.3 ng/dL 01/10/2017 Comp Metabolic Bil505 NA 141 mEq/L 01/10/2017 Comp Metabolic Wtr959 K 4.8 mEq/L 01/10/2017 Comp Metabolic Ndj419 CL 106 mEq/L 01/10/2017 Comp Metabolic Mgh662 CO2 29.0 mEq/L 01/10/2017 Comp Metabolic Suo733 ANION GAP 11 01/10/2017 Comp Metabolic Oey518 GLUCOSE 73 mg/dL 01/10/2017 Comp Metabolic Hro165 Creat 0.9 mg/dL 01/10/2017 Comp Metabolic Jtw280 eGFR 93 ml/min/1.73m2 01/10/2017 Comp Metabolic Kks585 BUN 19 mg/dL 01/10/2017 Comp Metabolic Odx868 B/C Ratio 22.1 Ratio 01/10/2017 Comp Metabolic Ivi768 CALCIUM 9.0 mg/dL 01/10/2017 Comp Metabolic Gdn169 ALK PHOS 80 U/L 01/10/2017 Comp Metabolic Epr613 AST(SGOT) 24 U/L 01/10/2017 Comp Metabolic Kuf758 ALT(SGPT) 28 U/L 01/10/2017 Comp Metabolic Tim706 BILI T 0.4 mg/dL 01/10/2017 Comp Metabolic Txj117 ALBUMIN 3.8 g/dL 01/10/2017 Comp Metabolic Bvk052 TPRO 5.9 g/dL 01/10/2017 Comp Metabolic Sof752 GLOB 2.1 g/dL 01/10/2017 Comp Metabolic Ngn703 A/G Ratio 1.9 Ratio 01/10/2017 Comp Metabolic Ero707 Osmo 282 mOsmo 01/10/2017 Cbc With Differential [...] 31.9 pg 01/10/2017 Cbc With Differential Ord2 [place]% 9.6 % 01/10/2017 Cbc With Differential Ord2 [...] 0.62 K/ul 01/10/2017 Cbc With Differential Ord2 [place] ABS# 0.6 K/ul 01/10/2017 Cbc With Differential [...] 31.8 pg 01/03/2017 Cbc With Differential Ord2 [place]% 8.6 % 01/03/2017 Cbc With Differential Ord2 [...] 0.42 K/ul 01/03/2017 Cbc With Differential Ord2 [place] ABS# 0.5 K/ul 01/03/2017 Cbc With Differential Ord2 Eos ABS# 0.1 K/ul 01/03/2017 Cbc With Differential Ord2 Baso ABS# 0.0 K/ul 01/03/2017 Comp Metabolic Akm486 NA 140 mEq/L 01/03/2017 Comp Metabolic Klj653 K 4.7 mEq/L 01/03/2017 Comp Metabolic Kel609 CL 106 mEq/L 01/03/2017 Comp Metabolic Frb838 CO2 28.0 mEq/L 01/03/2017 Comp Metabolic Psj507 ANION GAP 11 01/03/2017 Comp Metabolic Atw686 GLUCOSE 126 mg/dL 01/03/2017 Comp Metabolic Jeh410 Creat 0.9 mg/dL 01/03/2017 Comp Metabolic Xnj450 eGFR 88 ml/min/1.73m2 01/03/2017 Comp Metabolic Fql759 BUN 23 mg/dL 01/03/2017 Comp Metabolic Mop806 B/C Ratio 25.6 Ratio 01/03/2017 Comp Metabolic End981 CALCIUM 8.8 mg/dL 01/03/2017 Comp Metabolic Dkw716 ALK PHOS 73 U/L 01/03/2017 Comp Metabolic Eur458 AST(SGOT) 25 U/L 01/03/2017 Comp Metabolic Awu784 ALT(SGPT) 30 U/L 01/03/2017 Comp Metabolic Wco864 BILI T 0.4 mg/dL 01/03/2017 Comp Metabolic Djw281 ALBUMIN 3.9 g/dL 01/03/2017 Comp Metabolic Jsp234 TPRO 5.9 g/dL 01/03/2017 Comp Metabolic Hkr089 GLOB 2.1 g/dL 01/03/2017 Comp Metabolic Bae265 A/G Ratio 1.9 Ratio 01/03/2017 Comp Metabolic Bat250 Osmo 285 mOsmo 01/03/2017 Cbc With Differential [...] 31.7 pg 12/12/2016 Cbc With Differential Ord2 [place]% 8.9 % 12/12/2016 Cbc With Differential Ord2 [...] 0.80 K/ul 12/12/2016 Cbc With Differential Ord2 [place] ABS# 0.5 K/ul 12/12/2016 Cbc With Differential Ord2 Eos ABS# 0.1 K/ul 12/12/2016 Cbc With Differential Ord2 Baso ABS# 0.1 K/ul 12/12/2016 Comp Metabolic Hcd498 NA 140 mEq/L 12/12/2016 Comp Metabolic Mxf196 K 3.8 mEq/L 12/12/2016 Comp Metabolic Oge041 CL 105 mEq/L 12/12/2016 Comp Metabolic Esx095 CO2 26.0 mEq/L 12/12/2016 Comp Metabolic Cgy432 ANION GAP 13 12/12/2016 Comp Metabolic Frf534 GLUCOSE 112 mg/dL 12/12/2016 Comp Metabolic Tde061 Creat 0.9 mg/dL 12/12/2016 Comp Metabolic Xom652 eGFR 89 ml/min/1.73m2 12/12/2016 Comp Metabolic Xjn495 BUN 16 mg/dL 12/12/2016 Comp Metabolic Ecm530 B/C Ratio 18.0 Ratio 12/12/2016 Comp Metabolic Ace574 CALCIUM 8.6 mg/dL 12/12/2016 Comp Metabolic Dlg837 ALK PHOS 80 U/L 12/12/2016 Comp Metabolic Euu176 AST(SGOT) 21 U/L 12/12/2016 Comp Metabolic Hbe596 ALT(SGPT) 23 U/L 12/12/2016 Comp Metabolic Jwm601 BILI T 0.4 mg/dL 12/12/2016 Comp Metabolic Eeh320 ALBUMIN 3.7 g/dL 12/12/2016 Comp Metabolic Aer201 TPRO 5.6 g/dL 12/12/2016 Comp Metabolic Ywm034 GLOB 1.9 g/dL 12/12/2016 Comp Metabolic Plq686 A/G Ratio 2.0 Ratio 12/12/2016 Comp Metabolic Eeg857 Osmo 281 mOsmo 12/12/2016 Comp Metabolic Wlx757 NA 140 mEq/L 12/05/2016 Comp Metabolic Nty721 K 4.6 mEq/L 12/05/2016 Comp Metabolic Ghx326 CL 104 mEq/L 12/05/2016 Comp Metabolic Owi928 CO2 29.0 mEq/L 12/05/2016 Comp Metabolic Cgo378 ANION GAP 12 12/05/2016 Comp Metabolic Qzj855 GLUCOSE 93 mg/dL 12/05/2016 Comp Metabolic Unx258 Creat 0.8 mg/dL 12/05/2016 Comp Metabolic Mqo809 eGFR 98 ml/min/1.73m2 12/05/2016 Comp Metabolic Ljt736 BUN 20 mg/dL 12/05/2016 Comp Metabolic Iis850 B/C Ratio 24.4 Ratio 12/05/2016 Comp Metabolic Pcp371 CALCIUM 8.8 mg/dL 12/05/2016 Comp Metabolic Uzg817 ALK PHOS 82 U/L 12/05/2016 Comp Metabolic Spe235 AST(SGOT) 24 U/L 12/05/2016 Comp Metabolic Ikv997 ALT(SGPT) 28 U/L 12/05/2016 Comp Metabolic Gky451 BILI T 0.4 mg/dL 12/05/2016 Comp Metabolic Lpb724 ALBUMIN 3.9 g/dL 12/05/2016 Comp Metabolic Pni187 TPRO 5.9 g/dL 12/05/2016 Comp Metabolic Ebo143 GLOB 2.0 g/dL 12/05/2016 Comp Metabolic Zuz578 A/G Ratio 2.0 Ratio 12/05/2016 Comp Metabolic Khp700 Osmo 282 mOsmo 12/05/2016 Cbc With Differential [...] 94.4 fl 12/05/2016 Cbc With Differential Ord2 [place]% 8.8 % 12/05/2016 Cbc With Differential Ord2 [...] 1.16 K/ul 12/05/2016 Cbc With Differential Ord2 [place] ABS# 0.7 K/ul 12/05/2016 Cbc With Differential Ord2 Eos ABS# 0.2 K/ul 12/05/2016 Cbc With Differential Ord2 Baso ABS# 0.0 K/ul 12/05/2016 Review of Systems System Result Effective Dates Constitutional recent illness 05/03/2017 Constitutional No chills [...] No Procedures data Vital Signs Date Vital 05/03/2017 Blood Pressure 1: 128/80 Code : 8480-6 BMI: 30.2 Code : 42388-0 Heart Rate 1 : 79 bpm Height: 6' SpO2: 98% Weight: 223 lbs 02/27/2017 Blood Pressure 1: 126/66 Code : 8480-6 BMI: 30.2 Code : 61917-7 Heart Rate 1 : 61 bpm Height: 6' SpO2: 99% Weight: 223 lbs 01/10/2017 Blood Pressure 1: 136/70 Code : 8480-6 BMI: 30.0 Code : 87821-7 Heart Rate 1 : 62 bpm Height: 6' SpO2: 98% Weight: 221 lbs 8 oz 12/05/2016 Blood Pressure 1: 138/74 Code : 8480-6 BMI: 29.3 Code : 30627-7 Heart Rate 1 : 62 bpm Height: 6' SpO2: 98% Weight: 216 lbs Functional Status No Functional Status data History of Present Illness Symptom Name Status Result Effective Date Notes arthralgia(s) Location diffusely 05/03/2017 None arthralgia(s) Quality [...] data Encounters Encounter Performer Location Codes Date [phone]) [phone] EST. PATIENT, LEVEL IV Diagnosis: Umbilical hernia without obstruction or gangrene[ICD10: K42.9] Diagnosis: Chronic lymphocytic leukemia of B-cell type not having achieved remission[ICD10: C91.10] Diagnosis: Pain in left hip[ICD10: M25.552] Diagnosis: Pain in right hip[ICD10: M25.551] Diagnosis: Pain in left knee[ICD10: M25.562] Diagnosis: Pain in right knee[ICD10: M25.561] [facility] CPT-4: 59648 05/03/2017 ([id number]) [id number] EST. 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 Austin. Umbilical hernia -pt cannot get his surgery until another month from this date as he has to wait for the chemotherapy to be out of his system prior to surgery. 05/03/2017 Patient Education: Patient Medication Summary Completed 05/03/2017 Visit Plan: CLL - continue with chemotherapy. Umbilical hernia - agree with plans for pt to have re-evaluation with surgeon after his chemotherapy is complete. 02/27/2017 Appointment: Harriet Salomon WPtel: [id number] (15 min) Moderate 02/27/2017 Patient Education: Patient [...] Salomon WPtel: [id number] (15 min) Moderate 01/10/2017 Patient Education: Patient Medication Summary Completed 01/10/2017 Patient Education: Obesity Completed 01/10/2017 Care Plan: ASSAY OF TOTAL TESTOSTERONE LOINC : 42016-1 Pending 01/10/2017 Appointment: [facility]omon [facility] ([facility] min) Moderate 01/02/2017 Visit Plan: Umbilical [...] this regimen. 12/05/2016 Appointment: [facility] Salomon [facility] [facility] 12/05/2016 Patient Education: Patient Medication Summary Completed 12/05/2016 Instructions Comment please have the administration internship look at the rough area below your [...]
--- OUTSIDE RECORDS SUMMARY | 2018-05-10 18:53 | XMS REPORT ---
Author Author WERO LINDER [facility] Address [address] [place] [address] Care Team Providers Care Artificial Stone Applicator Name Role Phone WERO LINDER Unavailable PROBLEMS Unknown Problems ALLERGIES Unknown Allergies SOCIAL HISTORY No smoking Hx information available PLAN OF CARE VITAL SIGNS MEDICATIONS Unknown Medications RESULTS No Results PROCEDURES No Known procedures IMMUNIZATIONS No Known Immunizations
--- OUTSIDE RECORDS SUMMARY | 2018-05-10 18:54 | XMS REPORT | Continuity of Care Document ---
Author Author [facility] Organization [facility] Address Unknown Phone Unavailable Allergies Active Description Code Type Severity Reaction Onset Reported/Identified Relationship to Patient Clinical Status Yes meperidine [id number] Drug Allergy Mild PINK RASH 05/08/2018 Yes No Allergy Information Available [id number] Drug Allergy Unknown N/A 2018 Medications There is no data. Problems Date Dx Coded Attending Type Code Diagnosis Diagnosed By 02/16/1215 ZACHARY POLANCO Ot C91.10 CHRONIC LYMPHOCYTIC LEUK OF B-CELL TYPE 02/16/1215 ZACHARY POLANCO Ot Z51.11 ENCOUNTER FOR ANTINEOPLASTIC CHEMOTHERAP 02/16/1215 ZACHARY POLANCO Ot Z79.899 OTHER ADAPTED PHYSICAL EDUCATION SPECIALIST (CURRENT) DRUG THERAPY 02/16/1437 JENNA RENDON MD Ot C91.10 CHRONIC LYMPHOCYTIC LEUK OF B-CELL TYPE 01/01/2015 ZACHARY POLANCO Ot D72.820 01/21/2015 ZACHARY POLANCO Ot D72.820 03/05/2015 ZACHARY POLANCO Ot D72.820 03/18/2015 ZACHARY POLANCO Ot 288.61 LYMPHOCYTOSIS (SYMPTOMATIC) 03/18/2015 ZACHARY POLANCO Ot C91.10 CHRONIC LYMPHOCYTIC LEUK OF B-CELL TYPE 03/18/2015 ZACHARY POLANCO Ot D72.820 05/20/2015 CRISTHIAN BENSON Ot C91.10 05/20/2015 CRISTHIAN BENSON Ot Z79.899 07/17/2015 ZACHARY POLANCO Ot D72.820 LYMPHOCYTOSIS (SYMPTOMATIC) 07/28/2015 ZACHARY POLANCO Ot D72.820 LYMPHOCYTOSIS (SYMPTOMATIC) 08/21/2015 CRISTHIAN BENSON CROZE MACHINE OPERATOR Ot C91.10 CHRONIC LYMPHOCYTIC LEUK OF B-CELL TYPE 08/21/2015 CRISTHIAN BENSONP Ot Z79.899 OTHER [facility] (CURRENT) DRUG THERAPY 08/21/2015 BENSONCRISTHIAN Be CROZE MACHINE OPERATOR Ot C91.10 CHRONIC LYMPHOCYTIC LEUK OF B-CELL TYPE 08/21/2015 BENSONLINDAGALDINO S CROZE MACHINE OPERATOR Ot Z79.899 OTHER [facility] (CURRENT) DRUG THERAPY 08/26/2015 MARCELINO LINDAGALDION Haile CROZE MACHINE OPERATOR Ot C91.10 CHRONIC LYMPHOCYTIC LEUK OF B-CELL TYPE 08/26/2015 BENSONCRISTHIAN CROZE MACHINE OPERATOR Ot Z79.899 OTHER ADAPTED PHYSICAL EDUCATION SPECIALIST (CURRENT) DRUG THERAPY 09/23/2015 BENSON, LINDAGALDINO S CROZE MACHINE OPERATOR Ot C91.10 CHRONIC LYMPHOCYTIC LEUK OF B-CELL TYPE 09/23/2015 BENSONLINDAGALDINO Be CROZE MACHINE OPERATOR Ot Z79.899 OTHER ADAPTED PHYSICAL EDUCATION SPECIALIST (CURRENT) DRUG THERAPY 09/23/2015 BENSONLINDAGALDINO Haile CROZE MACHINE OPERATOR Ot C91.10 CHRONIC LYMPHOCYTIC LEUK OF B-CELL TYPE 09/23/2015 COLLINZACHARY N Ot C91.10 CHRONIC LYMPHOCYTIC LEUK OF B-CELL TYPE 09/23/2015 COLLINZACHARY N Ot Z79.899 OTHER ADAPTED PHYSICAL EDUCATION SPECIALIST (CURRENT) DRUG THERAPY 10/25/2015 COLLINZACHARY N Ot C91.10 CHRONIC LYMPHOCYTIC LEUK OF B-CELL TYPE 10/25/2015 COLLINZACHARY N Ot Z79.899 OTHER ADAPTED PHYSICAL EDUCATION SPECIALIST (CURRENT) DRUG THERAPY 10/27/2015 COLLINZACHARY N Ot C91.10 CHRONIC LYMPHOCYTIC LEUK OF B-CELL TYPE 10/27/2015 COLLINZACHARY N Ot Z79.899 OTHER [facility] (CURRENT) DRUG THERAPY 10/31/2015 COLLINZACHARY LIMON N Ot C91.10 CHRONIC LYMPHOCYTIC LEUK OF B-CELL TYPE 10/31/2015 COLLIN BOBAN N Ot Z79.899 OTHER ADAPTED PHYSICAL EDUCATION SPECIALIST (CURRENT) DRUG THERAPY 11/13/2015 CRISTHIAN BENSON S CROZE MACHINE OPERATOR Ot C91.10 CHRONIC LYMPHOCYTIC LEUK OF B-CELL TYPE 11/13/2015 BENSONCRISTHIAN S CROZE MACHINE OPERATOR Ot Z79.899 OTHER [facility] (CURRENT) DRUG THERAPY 02/29/2016 COLLINZACHARY LIMON N Ot C91.10 CHRONIC LYMPHOCYTIC LEUK OF B-CELL TYPE 02/29/2016 COLLINZACHARY N Ot Z79.899 OTHER ADAPTED PHYSICAL EDUCATION SPECIALIST (CURRENT) DRUG THERAPY 03/02/2016 COLLINZACHARY LIMON N Ot C91.10 CHRONIC LYMPHOCYTIC LEUK OF B-CELL TYPE 03/02/2016 ZACHARY POLANCO N Ot Z79.899 OTHER ADAPTED PHYSICAL EDUCATION SPECIALIST (CURRENT) DRUG THERAPY 04/12/2016 COLLIN ZACHARY Zheng Ot C91.10 CHRONIC LYMPHOCYTIC LEUK OF B-CELL TYPE 04/12/2016 COLLIN MIRTHASIENNA N Ot Z79.899 OTHER ADAPTED PHYSICAL EDUCATION SPECIALIST (CURRENT) DRUG THERAPY 05/30/2016 COLLIN ZACHARY Zheng Ot C91.10 CHRONIC LYMPHOCYTIC LEUK OF B-CELL TYPE 05/30/2016 COLLIN MIRTHASIENNA N Ot Z79.899 OTHER ADAPTED PHYSICAL EDUCATION SPECIALIST (CURRENT) DRUG THERAPY 05/31/2016 COLLIN ZACHARY Zheng Ot C91.10 CHRONIC LYMPHOCYTIC LEUK OF B-CELL TYPE 05/31/2016 COLLIN ZACHARY N Ot Z79.899 OTHER ADAPTED PHYSICAL EDUCATION SPECIALIST (CURRENT) DRUG THERAPY 06/29/2016 COLLIN ZACHARY Zheng Ot C91.10 CHRONIC LYMPHOCYTIC LEUK OF B-CELL TYPE 06/29/2016 COLLIN ZACHARY N Ot Z79.899 OTHER [facility] (CURRENT) DRUG THERAPY 08/10/2016 COLLIN ZACHARY Zheng Ot C91.10 CHRONIC LYMPHOCYTIC LEUK OF B-CELL TYPE 08/10/2016 COLLIN ZACHARY N Ot Z79.899 OTHER ADAPTED PHYSICAL EDUCATION SPECIALIST (CURRENT) DRUG THERAPY 09/26/2016 COLLINZACHARY Ot C91.10 CHRONIC LYMPHOCYTIC LEUK OF B-CELL TYPE 09/26/2016 COLLINZACHARY N Ot Z79.899 OTHER [facility] (CURRENT) DRUG THERAPY 11/04/2016 KERRY CASTRO Ot E78.00 PURE HYPERCHOLESTEROLEMIA, UNSPECIFIED 11/04/2016 KERRY CASTRO Ot I10 ESSENTIAL (PRIMARY) HYPERTENSION 11/04/2016 KERRY CASTRO Ot I25.2 OLD MYOCARDIAL INFARCTION 11/04/2016 KERRY CASTRO Ot K42.9 UMBILICAL HERNIA WITHOUT OBSTRUCTION OR 11/04/2016 KERRY CASTRO Ot R10.33 PERIUMBILICAL PAIN 11/04/2016 KERRY CASTRO Ot Z85.6 PERSONAL HISTORY OF LEUKEMIA 11/04/2016 ZACHARY POLANCO Ot D72.820 LYMPHOCYTOSIS (SYMPTOMATIC) 11/04/2016 BENSON, HILAH S CROZE MACHINE OPERATOR Ot C91.10 CHRONIC LYMPHOCYTIC LEUK OF B-CELL TYPE 11/04/2016 CRISTHIAN BENSON CROZE MACHINE OPERATOR Ot Z79.899 OTHER ADAPTED PHYSICAL EDUCATION SPECIALIST (CURRENT) DRUG THERAPY 11/04/2016 CRISTHIAN BENSON CROZE MACHINE OPERATOR Ot C91.10 CHRONIC LYMPHOCYTIC LEUK OF B-CELL TYPE 11/04/2016 CRISTHIAN BENSON CROZE MACHINE OPERATOR Ot Z79.899 OTHER ADAPTED PHYSICAL EDUCATION SPECIALIST (CURRENT) DRUG THERAPY 11/04/2016 CRISTHIAN BENSON CROZE MACHINE OPERATOR Ot C91.10 CHRONIC LYMPHOCYTIC LEUK OF B-CELL TYPE 11/04/2016 CRISTHIAN BENSON CROZE MACHINE OPERATOR Ot C91.10 CHRONIC LYMPHOCYTIC LEUK OF B-CELL TYPE 11/04/2016 CRISTHIAN BENSON CROZE MACHINE OPERATOR Ot Z79.899 OTHER [facility] (CURRENT) DRUG THERAPY 11/04/2016 ZACHARY POLANCO Ot C91.10 CHRONIC LYMPHOCYTIC LEUK OF B-CELL TYPE 11/04/2016 ZACHARY POLANCO Ot Z79.899 OTHER ADAPTED PHYSICAL EDUCATION SPECIALIST (CURRENT) DRUG THERAPY 11/07/2016 ZACHARY POLANCO Ot D72.820 LYMPHOCYTOSIS (SYMPTOMATIC) 11/07/2016 CRISTHIAN BENSON CROZE MACHINE OPERATOR Ot C91.10 CHRONIC LYMPHOCYTIC LEUK OF B-CELL TYPE 11/07/2016 CRISTHIAN BENSON CROZE MACHINE OPERATOR Ot Z79.899 OTHER [facility] (CURRENT) DRUG THERAPY 11/07/2016 CRISTHIAN BENSON CROZE MACHINE OPERATOR Ot C91.10 CHRONIC LYMPHOCYTIC LEUK OF B-CELL TYPE 11/07/2016 CRISTHIAN BENSON CROZE MACHINE OPERATOR Ot Z79.899 OTHER [facility] (CURRENT) DRUG THERAPY 11/07/2016 CRISTHIAN BENSON CROZE MACHINE OPERATOR Ot C91.10 CHRONIC LYMPHOCYTIC LEUK OF B-CELL TYPE 11/07/2016 CRISTHIAN BENSON CROZE MACHINE OPERATOR Ot C91.10 CHRONIC LYMPHOCYTIC LEUK OF B-CELL TYPE 11/07/2016 CRISTHIAN BENSON CROZE MACHINE OPERATOR Ot Z79.899 OTHER [facility] (CURRENT) DRUG THERAPY 11/07/2016 ZACHARY POLANCO Ot C91.10 CHRONIC LYMPHOCYTIC LEUK OF B-CELL TYPE 11/07/2016 ZACHARY POLANCO Ot Z79.899 OTHER [facility] (CURRENT) DRUG THERAPY 11/14/2016 ZACHARY POLANCO Ot D72.820 LYMPHOCYTOSIS (SYMPTOMATIC) 11/14/2016 CRISTHIAN BENSON CROZE MACHINE OPERATOR Ot C91.10 CHRONIC LYMPHOCYTIC LEUK OF B-CELL TYPE 11/14/2016 CRISTHIAN BENSON CROZE MACHINE OPERATOR Ot Z79.899 OTHER [facility] (CURRENT) DRUG THERAPY 11/14/2016 CRISTHIAN BENSON CROZE MACHINE OPERATOR Ot C91.10 CHRONIC LYMPHOCYTIC LEUK OF B-CELL TYPE 11/14/2016 CRISHTIAN BENSON CROZE MACHINE OPERATOR Ot Z79.899 OTHER [facility] (CURRENT) DRUG THERAPY 11/14/2016 CRISTHIAN BENSONP Ot C91.10 CHRONIC LYMPHOCYTIC LEUK OF B-CELL TYPE 11/14/2016 CRISTHIAN BENSON CROZE MACHINE OPERATOR Ot C91.10 CHRONIC LYMPHOCYTIC LEUK OF B-CELL TYPE 11/14/2016 CRISTHIAN BENSON CROZE MACHINE OPERATOR Ot Z79.899 OTHER [facility] (CURRENT) DRUG THERAPY 11/14/2016 ZACHARY POLANCO Ot C91.10 CHRONIC LYMPHOCYTIC LEUK OF B-CELL TYPE 11/14/2016 ZACHARY POLANCO Ot Z79.899 OTHER ADAPTED PHYSICAL EDUCATION SPECIALIST (CURRENT) DRUG THERAPY 11/15/2016 ZACHARY POLANCO Ot C91.10 CHRONIC LYMPHOCYTIC LEUK OF B-CELL TYPE 11/15/2016 ZACHARY POLANCO Ot Z79.899 OTHER ADAPTED PHYSICAL EDUCATION SPECIALIST (CURRENT) DRUG THERAPY 11/22/2016 ZACHARY POLANCO Ot C91.10 CHRONIC LYMPHOCYTIC LEUK OF B-CELL TYPE 11/22/2016 ZACHARY POLANCO Ot Z79.899 OTHER [facility] (CURRENT) DRUG THERAPY 12/09/2016 CRISTHIAN BENSON Ot 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, UNSPECIFIED 12/09/2016 CRISTHIAN BENSON CROZE MACHINE OPERATOR Ot C91.10 CHRONIC LYMPHOCYTIC LEUK OF B-CELL TYPE 12/15/2016 ZACHARY POLANCO Ot C91.10 CHRONIC LYMPHOCYTIC LEUK OF B-CELL TYPE 12/15/2016 ZACHARY POLANCO Ot Z51.11 ENCOUNTER FOR ANTINEOPLASTIC CHEMOTHERAP 12/15/2016 ZACHARY POLANCO Ot Z79.899 OTHER [facility] (CURRENT) DRUG THERAPY 12/30/2016 CRISTHIAN BENSON CROZE MACHINE OPERATOR Ot 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, UNSPECIFIED 12/30/2016 CRISTHIAN BENSON CROZE MACHINE OPERATOR Ot C91.10 CHRONIC LYMPHOCYTIC LEUK OF B-CELL TYPE 01/16/2017 ZACHARY POLANCO Ot C83.03 SMALL CELL B-CELL LYMPHOMA, INTRA-ABDOMI 01/16/2017 ZACHARY POLANCO Norm Ot C91.10 CHRONIC LYMPHOCYTIC LEUK OF B-CELL TYPE 01/16/2017 ZACHARY POLANCO Norm Ot K21.9 GASTRO-ESOPHAGEAL REFLUX DISEASE WITHOUT 01/16/2017 ZACHARY POLANCO Ot R10.33 PERIUMBILICAL PAIN 01/16/2017 ZACHARY POLANCO Norm Ot Z51.11 ENCOUNTER FOR ANTINEOPLASTIC CHEMOTHERAP 01/16/2017 ZACHARY POLANCO Norm Ot Z79.899 OTHER ADAPTED PHYSICAL EDUCATION SPECIALIST (CURRENT) DRUG THERAPY 01/16/2017 ZACHARY POLANCO Norm Ot C91.10 CHRONIC LYMPHOCYTIC LEUK OF B-CELL TYPE 01/16/2017 ZACHARY POLANCO Norm Ot K21.9 GASTRO-ESOPHAGEAL REFLUX DISEASE WITHOUT 01/16/2017 ZACHARY POLANCO Ot R10.33 PERIUMBILICAL PAIN 01/16/2017 ZACHARY POLANCO Norm Ot Z51.11 ENCOUNTER FOR ANTINEOPLASTIC CHEMOTHERAP 01/16/2017 MIRTHA POLANCOSIENNA Zheng Ot Z79.899 OTHER [facility] (CURRENT) DRUG THERAPY 01/17/2017 MARLENE BRANTLEY MD, Ot C91.10 CHRONIC LYMPHOCYTIC LEUK OF B-CELL TYPE 01/17/2017 MARLENE BRANTLEY MD Ot K21.9 GASTRO-ESOPHAGEAL REFLUX DISEASE WITHOUT 01/17/2017 MARLENE BRANTLEY MD Ot Z51.11 ENCOUNTER FOR ANTINEOPLASTIC CHEMOTHERAP 01/17/2017 MARLENE BRANTLEY MD Ot Z79.899 OTHER ADAPTED PHYSICAL EDUCATION SPECIALIST (CURRENT) DRUG THERAPY 01/23/2017 MARLENE BRANTLEY MD Ot C91.10 CHRONIC LYMPHOCYTIC LEUK OF B-CELL TYPE 01/23/2017 MARLENE BRANTLEY MD Ot K21.9 GASTRO-ESOPHAGEAL REFLUX DISEASE WITHOUT 01/23/2017 MARLENE BRANTLEY MD Ot Z51.11 ENCOUNTER FOR ANTINEOPLASTIC CHEMOTHERAP 01/23/2017 MARLENE BRANTLEY MD Ot Z79.899 OTHER [facility] (CURRENT) DRUG THERAPY 01/31/2017 MARLENE BRANTLEY MD, Ot C91.10 CHRONIC LYMPHOCYTIC LEUK OF B-CELL TYPE 01/31/2017 MARLENE BRANTLEY MD Ot K21.9 GASTRO-ESOPHAGEAL REFLUX DISEASE WITHOUT 01/31/2017 MARLENE BRANTLEY MD Ot Z51.11 ENCOUNTER FOR ANTINEOPLASTIC CHEMOTHERAP 01/31/2017 MARLENE BRANTLEY MD Ot Z79.899 OTHER [facility] (CURRENT) DRUG THERAPY 01/31/2017 CRISTHIAN BENSONP Ot C91.10 CHRONIC LYMPHOCYTIC LEUK OF B-CELL TYPE 01/31/2017 CRISTHIAN BENSON S CROZE MACHINE OPERATOR Ot Z79.899 OTHER ADAPTED PHYSICAL EDUCATION SPECIALIST (CURRENT) DRUG THERAPY 01/31/2017 ZACHARY POLANCO Ot D72.820 LYMPHOCYTOSIS (SYMPTOMATIC) 01/31/2017 CRISTHIAN BENSON S CROZE MACHINE OPERATOR Ot C91.10 CHRONIC LYMPHOCYTIC LEUK OF B-CELL TYPE 01/31/2017 CRISTHIAN BENSON CROZE MACHINE OPERATOR Ot Z79.899 OTHER [facility] (CURRENT) DRUG THERAPY 01/31/2017 CRISTHIAN BENSON CROZE MACHINE OPERATOR Ot C91.10 CHRONIC LYMPHOCYTIC LEUK OF B-CELL TYPE 01/31/2017 CRISTHIAN BENSON CROZE MACHINE OPERATOR Ot C91.10 CHRONIC LYMPHOCYTIC LEUK OF B-CELL TYPE 01/31/2017 CRISTHIAN BENSON S CROZE MACHINE OPERATOR Ot Z79.899 OTHER ADAPTED PHYSICAL EDUCATION SPECIALIST (CURRENT) DRUG THERAPY 02/01/2017 MARLENE BRANTLEY MD Ot C91.10 CHRONIC LYMPHOCYTIC LEUK OF B-CELL TYPE 02/01/2017 MARLENE BRANTLEY MD Ot K21.9 GASTRO-ESOPHAGEAL REFLUX DISEASE WITHOUT 02/01/2017 MARLENE BRANTLEY MD Ot Z51.11 ENCOUNTER FOR ANTINEOPLASTIC CHEMOTHERAP 02/01/2017 MARLENE BRANTLEY MD Ot Z79.899 OTHER ADAPTED PHYSICAL EDUCATION SPECIALIST (CURRENT) DRUG THERAPY 02/08/2017 MARLENE BRANTLEY MD Ot C91.10 CHRONIC LYMPHOCYTIC LEUK OF B-CELL TYPE 02/08/2017 MARLENE BRANTLEY MD Ot K21.9 GASTRO-ESOPHAGEAL REFLUX DISEASE WITHOUT 02/08/2017 MARLENE BRANTLEY MD Ot Z51.11 ENCOUNTER FOR ANTINEOPLASTIC CHEMOTHERAP 02/08/2017 MARLENE BRANTLEY MD Ot Z79.899 OTHER [facility] (CURRENT) DRUG THERAPY 02/08/2017 ZACHARY POLANCO Ot C91.10 CHRONIC LYMPHOCYTIC LEUK OF B-CELL TYPE 02/08/2017 ZACHARY POLANCO Ot K21.9 GASTRO-ESOPHAGEAL REFLUX DISEASE WITHOUT 02/08/2017 COLLINZACHARY N Ot Z51.11 ENCOUNTER FOR ANTINEOPLASTIC CHEMOTHERAP 02/08/2017 COLLINZACHARY N Ot Z79.899 OTHER ADAPTED PHYSICAL EDUCATION SPECIALIST (CURRENT) DRUG THERAPY 02/13/2017 COLLINZACHARY N Ot C91.10 CHRONIC LYMPHOCYTIC LEUK OF B-CELL TYPE 02/13/2017 COLLINZACHARY N Ot K21.9 GASTRO-ESOPHAGEAL REFLUX DISEASE WITHOUT 02/13/2017 COLLINZACHARY N Ot Z51.11 ENCOUNTER FOR ANTINEOPLASTIC CHEMOTHERAP 02/13/2017 COLLINZACHARY N Ot Z79.899 OTHER ADAPTED PHYSICAL EDUCATION SPECIALIST (CURRENT) DRUG THERAPY 02/22/2017 COLLINZACHARY LIMON N Ot C91.10 CHRONIC LYMPHOCYTIC LEUK OF B-CELL TYPE 02/22/2017 COLLINZACHARY N Ot K21.9 GASTRO-ESOPHAGEAL REFLUX DISEASE WITHOUT 02/22/2017 COLLINZACHARY N Ot Z51.11 ENCOUNTER FOR ANTINEOPLASTIC CHEMOTHERAP 02/22/2017 ZACHARY POLANCO N Ot Z79.899 OTHER [facility] (CURRENT) DRUG THERAPY 03/07/2017 ZACHARY POLANCO N Ot C91.10 CHRONIC LYMPHOCYTIC LEUK OF B-CELL TYPE 03/07/2017 COLLINZACHARY N Ot R16.1 SPLENOMEGALY, NOT ELSEWHERE CLASSIFIED 03/07/2017 COLLINZACHARY N Ot Z51.11 ENCOUNTER FOR ANTINEOPLASTIC CHEMOTHERAP 03/23/2017 ZACHARY POLANCO N Ot C91.10 CHRONIC LYMPHOCYTIC LEUK OF B-CELL TYPE 03/23/2017 COLLINZACHARY LIMON N Ot R16.1 SPLENOMEGALY, NOT ELSEWHERE CLASSIFIED 03/23/2017 COLLINZACHARY N Ot Z51.11 ENCOUNTER FOR ANTINEOPLASTIC CHEMOTHERAP 04/18/2017 COLLINZACHARY LIMON N Ot C91.10 CHRONIC LYMPHOCYTIC LEUK OF B-CELL TYPE 04/18/2017 COLLINZACHARY N Ot K21.9 GASTRO-ESOPHAGEAL REFLUX DISEASE WITHOUT 04/18/2017 COLLINZACHARY N Ot Z51.11 ENCOUNTER FOR ANTINEOPLASTIC CHEMOTHERAP 04/18/2017 COLLINZACHARY LIMON N Ot Z79.899 OTHER [facility] (CURRENT) DRUG THERAPY 04/18/2017 ZACHARY POLANCO N Ot C91.10 CHRONIC LYMPHOCYTIC LEUK OF B-CELL TYPE 04/18/2017 ZACHARY POLANCO Ot K21.9 GASTRO-ESOPHAGEAL REFLUX DISEASE WITHOUT 04/18/2017 ZACHARY POLANCO N Ot Z51.11 ENCOUNTER FOR ANTINEOPLASTIC CHEMOTHERAP 04/18/2017 ZACHARY POLANCO N Ot Z79.899 OTHER ADAPTED PHYSICAL EDUCATION SPECIALIST (CURRENT) DRUG THERAPY 05/04/2017 ZACHARY POLANCO N Ot C91.10 CHRONIC LYMPHOCYTIC LEUK OF B-CELL TYPE 05/09/2017 ZACHARY POLANCO N Ot C91.10 CHRONIC LYMPHOCYTIC LEUK OF B-CELL TYPE 05/14/2017 ZACHARY POLANCO N Ot C91.10 CHRONIC LYMPHOCYTIC LEUK OF B-CELL TYPE 05/14/2017 ZACHARY POLANCO N Ot K21.9 GASTRO-ESOPHAGEAL REFLUX DISEASE WITHOUT 05/14/2017 ZACHARY POLANCO N Ot R16.1 SPLENOMEGALY, NOT ELSEWHERE CLASSIFIED 05/14/2017 ZACHARY POLANCO N Ot Z51.11 ENCOUNTER FOR ANTINEOPLASTIC CHEMOTHERAP 05/14/2017 ZACHARY POLANCO N Ot Z79.899 OTHER ADAPTED PHYSICAL EDUCATION SPECIALIST (CURRENT) DRUG THERAPY 05/15/2017 ZACHARY POLANCO N Ot C91.10 CHRONIC LYMPHOCYTIC LEUK OF B-CELL TYPE 05/15/2017 ZACHARY POLANCO N Ot K21.9 GASTRO-ESOPHAGEAL REFLUX DISEASE WITHOUT 05/15/2017 ZACHARY POLANCO N Ot R16.1 SPLENOMEGALY, NOT ELSEWHERE CLASSIFIED 05/15/2017 ZACHARY POLANCO N Ot Z51.11 ENCOUNTER FOR ANTINEOPLASTIC CHEMOTHERAP 05/15/2017 ZACHARY POLANCO N Ot Z79.899 OTHER [facility] (CURRENT) DRUG THERAPY 05/23/2017 ZACHARY POLANCO N Ot C91.10 CHRONIC LYMPHOCYTIC LEUK OF B-CELL TYPE 06/16/2017 VENKATESH TIWARI MD Ot R10.9 UNSPECIFIED ABDOMINAL PAIN 06/16/2017 VENKATESH TIWARI MD Ot Z90.49 ACQUIRED ABSENCE OF OTHER SPECIFIED PART 07/10/2017 VENKATESH TIWARI MD Ot R10.9 UNSPECIFIED ABDOMINAL PAIN 07/10/2017 VENKATESH TIWARI MD Ot Z90.49 ACQUIRED ABSENCE OF OTHER SPECIFIED PART 08/08/2017 JENNA RENDON MD Ot C91.10 CHRONIC LYMPHOCYTIC LEUK OF B-CELL TYPE 08/25/2017 JENNA RENDON MD Ot C91.10 CHRONIC LYMPHOCYTIC LEUK OF B-CELL TYPE 09/27/2017 JENNA RENDON MD Ot C91.10 CHRONIC LYMPHOCYTIC LEUK OF B-CELL TYPE 09/27/2017 ZACHARY POLANCO Ot D72.820 LYMPHOCYTOSIS (SYMPTOMATIC) 09/27/2017 BENSONCRISTHIAN Be S CROZE MACHINE OPERATOR Ot C91.10 CHRONIC LYMPHOCYTIC LEUK OF B-CELL TYPE 09/27/2017 BENSON HILGALDINO S CROZE MACHINE OPERATOR Ot Z79.899 OTHER ADAPTED PHYSICAL EDUCATION SPECIALIST (CURRENT) DRUG THERAPY 09/27/2017 BENSON HILGALDINO S CROZE MACHINE OPERATOR Ot C91.10 CHRONIC LYMPHOCYTIC LEUK OF B-CELL TYPE 09/27/2017 BENSON HILAH S CROZE MACHINE OPERATOR Ot Z79.899 OTHER [facility] (CURRENT) DRUG THERAPY 09/27/2017 BENSON HILAH S CROZE MACHINE OPERATOR Ot C91.10 CHRONIC LYMPHOCYTIC LEUK OF B-CELL TYPE 09/27/2017 BENSON HILAH S CROZE MACHINE OPERATOR Ot C91.10 CHRONIC LYMPHOCYTIC LEUK OF B-CELL TYPE 09/27/2017 BENSONCRISTHIAN S CROZE MACHINE OPERATOR Ot Z79.899 OTHER [facility] (CURRENT) DRUG THERAPY 09/27/2017 BENSONCRISTHIAN Be S CROZE MACHINE OPERATOR Ot 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, UNSPECIFIED 09/27/2017 BENSONCRISTHIAN S CROZE MACHINE OPERATOR Ot C91.10 CHRONIC LYMPHOCYTIC LEUK OF B-CELL TYPE 09/27/2017 ZACHARY POLANCO Ot C91.10 CHRONIC LYMPHOCYTIC LEUK OF B-CELL TYPE 09/27/2017 ZACHARY POLANCO Ot R16.1 SPLENOMEGALY, NOT ELSEWHERE CLASSIFIED 09/27/2017 ZACHARY POLANCO Ot C91.10 CHRONIC LYMPHOCYTIC LEUK OF B-CELL TYPE 09/27/2017 VENKATESH TIWARI MD Ot R10.9 UNSPECIFIED ABDOMINAL PAIN 09/27/2017 VENKATESH TIWARI MD Ot Z90.49 ACQUIRED ABSENCE OF OTHER SPECIFIED PART 09/27/2017 ZACHARY POLANCO Ot C91.10 CHRONIC LYMPHOCYTIC LEUK OF B-CELL TYPE 09/28/2017 ZACHARY POLANCO Ot C91.10 CHRONIC LYMPHOCYTIC LEUK OF B-CELL TYPE 10/04/2017 ZACHARY POLANCO Ot C91.10 CHRONIC LYMPHOCYTIC LEUK OF B-CELL TYPE 10/05/2017 ZACHARY POLANCO Ot C91.10 CHRONIC LYMPHOCYTIC LEUK OF B-CELL TYPE 10/17/2017 COLLIN, BOBAN N Ot C91.10 CHRONIC LYMPHOCYTIC LEUK OF B-CELL TYPE 11/07/2017 COLLINZACHARY N Ot C91.10 CHRONIC LYMPHOCYTIC LEUK OF B-CELL TYPE 11/23/2017 COLLINZACHARY N Ot C91.10 CHRONIC LYMPHOCYTIC LEUK OF B-CELL TYPE 02/12/2018 COLLINZACHARY N Ot C91.10 CHRONIC LYMPHOCYTIC LEUK OF B-CELL TYPE 02/12/2018 COLLINZACHARY LIMON N Ot Z79.899 OTHER ADAPTED PHYSICAL EDUCATION SPECIALIST (CURRENT) DRUG THERAPY 02/23/2018 KARIE MTZ, VENKATESH Torres Ot M72.2 PLANTAR FASCIAL FIBROMATOSIS 02/26/2018 COLLIN MIRTHASIENNA N Ot C91.10 CHRONIC LYMPHOCYTIC LEUK OF B-CELL TYPE 02/26/2018 COLLIN BOBAN N Ot Z79.899 OTHER ADAPTED PHYSICAL EDUCATION SPECIALIST (CURRENT) DRUG THERAPY 03/17/2018 VENKATESH TIWARI MD Ot M72.2 PLANTAR FASCIAL FIBROMATOSIS 03/27/2018 COLLIN, MIRTHASIENNA N Ot C91.10 CHRONIC LYMPHOCYTIC LEUK OF B-CELL TYPE 03/27/2018 COLLINZACHARY N Ot Z79.899 OTHER [facility] (CURRENT) DRUG THERAPY 03/29/2018 COLLINZACHARY N Ot C91.10 CHRONIC LYMPHOCYTIC LEUK OF B-CELL TYPE 03/29/2018 COLLIN BOBAN N Ot Z79.899 OTHER [facility] (CURRENT) DRUG THERAPY 03/30/2018 KARIE MTZ, VENKATESH Torres Ot M72.2 PLANTAR FASCIAL FIBROMATOSIS 04/06/2018 COLLIN MIRTHASIENNA N Ot C91.10 CHRONIC LYMPHOCYTIC LEUK OF B-CELL TYPE 04/06/2018 COLLIN MIRTHASIENNA N Ot Z79.899 OTHER ADAPTED PHYSICAL EDUCATION SPECIALIST (CURRENT) DRUG THERAPY 05/07/2018 SAMIR MTZ, ROBERT Lebron Ot K42.9 UMBILICAL HERNIA WITHOUT OBSTRUCTION OR 05/07/2018 ROBERT DAWSON MD Ot Z90.49 ACQUIRED ABSENCE OF OTHER SPECIFIED PART 05/08/2018 ROBERT DAWSON MD Ot K42.9 UMBILICAL HERNIA WITHOUT OBSTRUCTION OR 05/08/2018 ROBERT DAWSON MD Ot Z90.49 ACQUIRED ABSENCE OF OTHER SPECIFIED PART 05/08/2018 ROBERT DAWSON MD Ot K42.9 UMBILICAL HERNIA WITHOUT OBSTRUCTION OR 05/08/2018 ROBERT DAWSON MD Ot Z90.49 ACQUIRED ABSENCE OF OTHER SPECIFIED PART 05/09/2018 ROBERT DAWSON MD Ot Z01.818 ENCOUNTER FOR OTHER PREPROCEDURAL EXAMIN Procedures There is no data. Results Test Result Range Complete blood count (CBC) with automated white blood cell (WBC) differential - 11/04/16 17:37 Blood leukocytes automated count (number/volume) 137.2 10*3/uL 4.3-11.0 Blood erythrocytes automated count (number/volume) 4.70 10*6/uL 4.35-5.85 Venous blood hemoglobin measurement (mass/volume) 14.0 g/dL 13.3-17.7 Blood hematocrit (volume fraction) 45 % 40-54 Automated erythrocyte mean corpuscular volume 95 [foz_us] 80-99 Automated erythrocyte mean corpuscular hemoglobin (mass per erythrocyte) 30 pg 25-34 Automated erythrocyte mean corpuscular hemoglobin concentration measurement ( mass/volume) 32 g/dL 32-36 Automated erythrocyte distribution width ratio 15.0 % 10.0-14.5 Automated blood platelet count (count/volume) 183 10*3/uL 130-400 Automated blood platelet mean volume measurement 11.5 [foz_us] 7.4-10.4 Comprehensive metabolic panel - 11/04/16 17:37 Serum or plasma sodium measurement (moles/volume) 139 mmol/L 135-145 Serum or plasma potassium measurement (moles/volume) 4.8 mmol/L 3.6-5.0 Serum or plasma chloride measurement (moles/volume) 107 mmol/L 98-107 Carbon dioxide 23 mmol/L 21-32 Serum or plasma anion gap determination (moles/volume) 9 mmol/L 5-14 Serum or plasma urea nitrogen measurement (mass/volume) 21 mg/dL 7-18 Serum or plasma creatinine measurement (mass/volume) 0.94 mg/dL 0.60-1.30 Serum or plasma urea nitrogen/creatinine mass ratio 22 NRG Serum or plasma creatinine measurement with calculation of estimated glomerular filtration rate > NRG Serum or plasma glucose measurement (mass/volume) 106 mg/dL 70-105 Serum or plasma calcium measurement (mass/volume) 9.1 mg/dL 8.5-10.1 Serum or plasma total bilirubin measurement (mass/volume) 0.3 mg/dL 0.1-1.0 Serum or plasma alkaline phosphatase measurement (enzymatic activity/volume) 90 U/L 40-136 Serum or plasma aspartate aminotransferase measurement (enzymatic activity/ volume) 36 U/L 5-34 Serum or plasma alanine aminotransferase measurement (enzymatic activity/volume ) 29 U/L 0-55 Serum or plasma protein measurement (mass/volume) 6.7 g/dL 6.4-8.2 Serum or plasma albumin measurement (mass/volume) 4.1 g/dL 3.2-4.5 Lipase - 11/04/16 17:37 Lipase 17 U/L 8-78 Complete urinalysis with reflex to culture - 11/04/16 17:40 Urine color determination YELLOW NRG Urine clarity determination CLEAR NRG Urine pH measurement by test strip 6 5-9 Specific gravity of urine by test strip 1.010 1.016- 1.022 Urine protein assay by test strip, semi-quantitative NEGATIVE NEGATIVE Urine glucose detection by automated test strip NEGATIVE NEGATIVE Erythrocytes detection in urine sediment by light microscopy NEGATIVE NEGATIVE Urine ketones detection by automated test strip NEGATIVE NEGATIVE Urine nitrite detection by test strip NEGATIVE NEGATIVE Urine total bilirubin detection by test strip NEGATIVE NEGATIVE Urine urobilinogen measurement by automated test strip (mass/volume) NORMAL NORMAL Urine leukocyte esterase detection by dipstick NEGATIVE NEGATIVE Automated urine sediment erythrocyte count by microscopy (number/high power field) NONE NRG Automated urine sediment leukocyte count by microscopy (number/high power field ) NONE NRG Bacteria detection in urine sediment by light microscopy NONE NRG Squamous epithelial cells detection in urine sediment by light microscopy RARE NRG Crystals detection in urine sediment by light microscopy NONE NRG Casts detection in urine sediment by light microscopy NONE NRG Mucus detection in urine sediment by light microscopy NEGATIVE NRG Complete urinalysis with reflex to culture NO NRG Complete blood count (CBC) with automated white blood cell (WBC) differential - 03/15/17 13:40 Blood leukocytes automated count (number/volume) 4.6 10*3/uL 4.3-11.0 Blood erythrocytes automated count (number/volume) 4.65 10*6/uL 4.35-5.85 Venous blood hemoglobin measurement (mass/volume) 14.8 g/dL 13.3-17.7 Blood hematocrit (volume fraction) 42 % 40-54 Automated erythrocyte mean corpuscular volume 91 [foz_us] 80-99 Automated erythrocyte mean corpuscular hemoglobin (mass per erythrocyte) 32 pg 25-34 Automated erythrocyte mean corpuscular hemoglobin concentration measurement ( mass/volume) 35 g/dL 32-36 Automated erythrocyte distribution width ratio 13.0 % 10.0-14.5 Automated blood platelet count (count/volume) 197 10*3/uL 130-400 Automated blood platelet mean volume measurement 11.0 [foz_us] 7.4-10.4 Automated blood neutrophils/100 leukocytes 79 % 42-75 Automated blood lymphocytes/100 leukocytes 10 % 12-44 Blood monocytes/100 leukocytes 9 % 0-12 Automated blood eosinophils/100 leukocytes 2 % 0-10 Automated blood basophils/100 leukocytes 0 % 0-10 Blood neutrophils automated count (number/volume) 3.6 10*3 1.8-7.8 Blood lymphocytes automated count (number/volume) 0.5 10*3 1.0-4.0 Blood monocytes automated count (number/volume) 0.4 10*3 0.0-1.0 Automated eosinophil count 0.1 10*3/uL 0.0-0.3 Automated blood basophil count (count/volume) 0.0 10*3/uL 0.0-0.1 Comprehensive metabolic panel - 03/15/17 13:40 Serum or plasma sodium measurement (moles/volume) 141 mmol/L 135-145 Serum or plasma potassium measurement (moles/volume) 4.1 mmol/L 3.6-5.0 Serum or plasma chloride measurement (moles/volume) 106 mmol/L 98-107 Carbon dioxide 25 mmol/L 21-32 Serum or plasma anion gap determination (moles/volume) 10 mmol/L 5-14 Serum or plasma urea nitrogen measurement (mass/volume) 15 mg/dL 7-18 Serum or plasma creatinine measurement (mass/volume) 0.88 mg/dL 0.60-1.30 Serum or plasma urea nitrogen/creatinine mass ratio 17 NRG Serum or plasma creatinine measurement with calculation of estimated glomerular filtration rate > NRG Serum or plasma glucose measurement (mass/volume) 139 mg/dL 70-105 Serum or plasma calcium measurement (mass/volume) 8.9 mg/dL 8.5-10.1 Serum or plasma total bilirubin measurement (mass/volume) 0.3 mg/dL 0.1-1.0 Serum or plasma alkaline phosphatase measurement (enzymatic activity/volume) 96 U/L 40-136 Serum or plasma aspartate aminotransferase measurement (enzymatic activity/ volume) 28 U/L 5-34 Serum or plasma alanine aminotransferase measurement (enzymatic activity/volume ) 35 U/L 0-55 Serum or plasma protein measurement (mass/volume) 6.5 g/dL 6.4-8.2 Serum or plasma albumin measurement (mass/volume) 3.8 g/dL 3.2-4.5 Magnesium - 03/15/17 13:40 Magnesium 1.9 mg/dL 1.8-2.4 Lactate dehydrogenase 1 [enzymatic activity/volume] in serum or plasma - 13:40 Lactate dehydrogenase 1 [enzymatic activity/volume] in serum or plasma 161 U/L 125-220 [id number] - 05/07/18 12:33 Serum or plasma urea nitrogen measurement (mass/volume) 19 mg/dL 7-18 Serum or plasma creatinine measurement (mass/volume) 0.93 mg/dL 0.60-1.30 Serum or plasma urea nitrogen/creatinine mass ratio 20 NRG Serum or plasma creatinine measurement with calculation of estimated glomerular filtration rate > NRG Automated blood complete blood count (hemogram) panel - 05/07/18 14:10 Blood leukocytes automated count (number/volume) 5.6 10*3/uL 4.3-11.0 Blood erythrocytes automated count (number/volume) 4.72 10*6/uL 4.35-5.85 Venous blood hemoglobin measurement (mass/volume) 14.9 g/dL 13.3-17.7 Blood hematocrit (volume fraction) 45 % 40-54 Automated erythrocyte mean corpuscular volume 95 [foz_us] 80-99 Automated erythrocyte mean corpuscular hemoglobin (mass per erythrocyte) 32 pg 25-34 Automated erythrocyte mean corpuscular hemoglobin concentration measurement ( mass/volume) 33 g/dL 32-36 Automated erythrocyte distribution width ratio 13.0 % 10.0-14.5 Automated blood platelet count (count/volume) 176 10*3/uL 130-400 Automated blood platelet mean volume measurement 12.0 [foz_us] 7.4-10.4 Whole blood basic metabolic panel - 05/07/18 14:10 Serum or plasma sodium measurement (moles/volume) 138 mmol/L 135-145 Serum or plasma potassium measurement (moles/volume) 4.6 mmol/L 3.6-5.0 Serum or plasma chloride measurement (moles/volume) 106 mmol/L 98-107 Carbon dioxide 25 mmol/L 21-32 Serum or plasma anion gap determination (moles/volume) 7 mmol/L 5-14 Serum or plasma urea nitrogen measurement (mass/volume) 18 mg/dL 7-18 Serum or plasma creatinine measurement (mass/volume) 0.94 mg/dL 0.60-1.30 Serum or plasma urea nitrogen/creatinine mass ratio 19 NRG Serum or plasma creatinine measurement with calculation of estimated glomerular filtration rate > NRG Serum or plasma glucose measurement (mass/volume) 83 mg/dL 70-105 Serum or plasma calcium measurement (mass/volume) 8.8 mg/dL 8.5-10.1 Methicillin resistant Staphylococcus aureus (MRSA) screening culture - 08:40 Methicillin resistant Staphylococcus aureus (MRSA) screening culture NEG NRG Encounters ACCT No. Visit Date/Time Discharge Status Pt. Type Provider Facility Loc./Unit Complaint [id number] 05/07/2018 15:05:00 05/07/2018 23:59:59 CLS Outpatient ROBERT DAWSON MD [facility] PREOP ROBOTIC VENTRAL HERNIA [id number] 05/07/2018 12:29:00 05/07/2018 23:59:59 CLS Outpatient ROBERT DAWSON MD [facility] RAD LIMB PAIN/STRANGULAD HERNIA [id number] 04/05/2018 14:40:00 04/05/2018 23:59:59 CLS Outpatient ZACHARY POLANCO [facility] ONC [id number] 12/27/2017 15:02:00 03/27/2018 00:01:00 DIS Outpatient ZACHARY POLANCO [facility] ONC [id number] 02/22/2018 14:49:00 02/22/2018 23:59:59 CLS Outpatient VENKATESH TIWARI MD [facility] RAD LEFT FOOT PAIN [id number] 09/27/2017 14:40:00 10/17/2017 00:01:00 DIS Outpatient ZACHARY POLANCO [facility] ONC [id number] 07/05/2017 15:17:00 09/27/2017 14:38:00 DIS Outpatient JENNA RENDON MD [facility] ONC [id number] 06/15/2017 07:43:00 06/15/2017 23:59:59 CLS Outpatient VENKATESH TIWARI MD [facility] RAD ONGOING ABD PAIN [id number] 05/09/2017 14:29:00 05/14/2017 00:01:00 DIS Outpatient ZACHARY POLANCO N [facility] ONC [id number] 05/03/2017 07:49:00 05/03/2017 23:59:59 CLS Outpatient COLLIN ZACHARY N [facility] RAD C91.10 [id number] 02/14/2017 12:47:00 02/14/2017 23:59:59 CLS Outpatient COLLINZACHARY LIMON N [facility] RAD C91.10 LYMPHOCIYTIC LEUKEMIA OF B CELL [id number] 01/17/2017 13:57:00 02/08/2017 14:42:00 DIS Outpatient MARLENE BRANTLEY MD [facility] ONC [id number] 12/21/2016 14:53:00 01/16/2017 15:53:00 DIS Outpatient ZACHARY POLANCO N [facility] ONC [id number] 11/29/2016 08:54:00 12/15/2016 12:16:00 DIS Outpatient COLLINZACHARY LIMON N [facility] ONC [id number] 11/15/2016 11:07:00 11/15/2016 23:59:59 CLS Outpatient CRISTHIAN BENSON [facility] RAD C83.00,C91.10 [id number] 11/04/2016 16:24:00 11/04/2016 20:15:00 DIS Emergency KERRY CASTRO [facility] ER STOMACH PAIN [id number] 06/28/2016 09:37:00 09/26/2016 00:01:00 DIS Outpatient ZACHARY POLANCO N [facility] ONC [id number] 05/10/2016 08:15:00 05/30/2016 00:01:00 DIS Outpatient COLLIN, BOBAN N [facility] ONC [id number] 07/27/2015 10:34:00 10/25/2015 00:01:00 DIS Outpatient ZACHARY POLANCO Norm [facility] ONC [id number] 10/22/2015 08:55:00 10/22/2015 23:59:59 CLS Outpatient CRISTHIAN BENSON [employer] [facility] ONC [id number] 08/20/2015 11:07:00 08/20/2015 23:59:59 CLS Outpatient CRISTHIAN BENSON [employer] [facility] RAD CHRONIC LYMPHOCYTIC LEUKEMIA OF B-CELL TYPE [id number] 08/20/2015 08:53:00 08/20/2015 23:59:59 CLS Outpatient CRISTHIAN BENSON [employer] [facility] ONC [id number] 04/28/2015 08:40:00 04/28/2015 23:59:59 CLS Outpatient CRISTHIAN BENSON [employer] [facility] ONC [id number] 02/05/2015 08:50:00 03/18/2015 00:01:00 DIS Outpatient ZACHARY POLANCO Norm [facility] ONC [id number] 01/01/2015 11:25:00 01/01/2015 23:59:59 CLS Outpatient MIRTHA POLANCOSIENNA Norm [facility] RAD LYMPHOCYTOSIS [id number] 05/08/2018 08:20:00 ACT Outpatient SAMIR MTZ, ROBERT Lebron [facility] 4TH VENTRAL HERNIA [id number] 12/21/2016 14:29:48 12/21/2016 23:59:59 CLS Outpatient
--- NOTE | 2018-05-10 19:20 | NUR ---
Report to Jaimie ARMIJO.
[2018-05-10 19:25] LABS: HEMATOCRIT 46 % (40-54); HEMOGLOBIN 15.6 G/DL (13.3-17.7); MEAN CORPUSCULAR HEMOGLOBIN 32 PG (25-34); WHITE BLOOD COUNT 7.8 10^3/uL (4.3-11.0)
[2018-05-10 19:26] LABS: LYMPHOCYTES % (AUTO) 5 % (12-44); MEAN CORPUSCULAR HGB CONC 34 G/DL (32-36); MEAN CORPUSCULAR VOLUME 94 FL (80-99); MEAN PLATELET VOLUME 11.9 FL (7.4-10.4); MONOCYTES % (AUTO) 8 % (0-12); NEUTROPHILS % (AUTO) 86 % (42-75); PLATELET COUNT 175 10^3/uL (130-400); RED CELL DISTRIBUTION WIDTH 12.4 % (10.0-14.5)
[2018-05-10 19:33] LABS: BASOPHILS % (AUTO) 0 % (0-10); EOSINOPHILS % (AUTO) 1 % (0-10); LYMPHOCYTES # (AUTO) 0.4 X 10^3 (1.0-4.0); MONOCYTES # (AUTO) 0.6 X 10^3 (0.0-1.0); NEUTROPHILS # (AUTO) 6.7 X 10^3 (1.8-7.8)
[2018-05-10 19:34] LABS: EOSINOPHILS # (AUTO) 0.1 10^3/uL (0.0-0.3)
[2018-05-10 19:36] LABS: BILIRUBIN,TOTAL 0.5 MG/DL (0.1-1.0); BUN/CREATININE RATIO 13; CALCIUM 8.7 MG/DL (8.5-10.1); CARBON DIOXIDE 24 MMOL/L (21-32); CHLORIDE 101 MMOL/L (98-107); CREATININE SERUM 0.78 MG/DL (0.60-1.30); GFR ESTIMATED > 60; GLUCOSE 114 MG/DL (70-105); POTASSIUM 4.3 MMOL/L (3.6-5.0); SODIUM 140 MMOL/L (135-145)
[2018-05-10 19:37] LABS: ALANINE AMINOTRANSFERASE 191 U/L (0-55); ALKALINE PHOSPHATASE 215 U/L (40-136)
--- NOTE | 2018-05-10 19:39 | Diagnostic Imaging Report ---
INDICATION: Abdominal pain. FINDINGS: The heart size is normal. There has been a previous median sternotomy. There is some patchy bibasilar atelectasis and/or pneumonitis. There is a moderate amount of retained fecal material which may reflect some degree of constipation. There are scattered air-fluid levels. There is no free air. There are surgical clips in the right upper quadrant. There is no abnormal abdominal calcifications. IMPRESSION: Scattered air-fluid levels in the small bowel suspect for ileus or possibly early small bowel obstruction. Additionally, there is a moderate amount of retained fecal material which may reflect some degree of constipation. Recommend clinical correlation. Bibasilar atelectasis and/or pneumonitis Dictated by: Dictated on workstation # [id number]
[2018-05-10] MEDS ORDERED: FLEET ENEMA ADULT 1 EA BTL PR ONE (19:45)
[2018-05-10] MEDS ORDERED: DOCUSATE SODIUM 100 MG (COLACE) CAP PO ONE (20:00)
[2018-05-10] MEDS ORDERED: BISACODYL 5 MG (DULCOLAX) TABLET PO ONE (20:00)
[2018-05-10] MEDS ORDERED: MAGNESIUM CITRATE 300 ML BTL PO ONE (20:00)
--- NOTE | 2018-05-10 20:24 | NUR ---
Pt. taken to the bathroom.
[2018-05-10 20:39] LABS: BAND NEUTROPHILS 2 %; BASOPHILS % (MANUAL) 0 %; EOSINOPHILS % (MANUAL) 0 %; LYMPHOCYTES % (MANUAL) 3 %; MONOCYTES % (MANUAL) 7 %; NEUTROPHILS % (MANUAL) 88 %
--- NOTE | 2018-05-10 20:39 | NUR ---
Pt. stated he had a small bm. Doctor said it would be ok for the patient to have some water which the patient received.
--- NOTE | 2018-05-10 21:08 | NUR ---
Pt. went to the restroom stated he had no results this time.
--- NOTE | 2018-05-10 21:12 | NUR ---
Pt. reported that he wanted to see the doctor. The doctor went in to see the patient at this time.
[2018-05-10 21:14] VITALS: BP 187/85
[2018-05-10 21:27] VITALS: BP 187/85
[2018-05-11 07:40] LABS: LIPASE 34 U/L (8-78)
== END 2018-05-10 21:25 | disposition home or self-care (01) ==
LOC: EDUNIT# 18:18 → ER FS 18:22
DX: K56.7 Ileus, unspecified (principal); K59.00 Constipation, unspecified; I25.2 Old myocardial infarction; E78.00 Pure hypercholesterolemia, unspecified; I10 Essential (primary) hypertension; F41.9 Anxiety disorder, unspecified; Z85.6 Personal history of leukemia; Z88.8 Allergy status to other drugs, medicaments and biological substances; Z98.890 Other specified postprocedural states
CPT/HCPCS: 36415; 74022; 80053; 83690; 85007; 85027; 96361; 96374

== ENCOUNTER 2018-08-08 14:59 | Outpatient (RCR) | payer MEDICARE | END 2018-11-06 | disposition home or self-care (01) | LOC: ONC 14:59 | PROVIDERS: ATTEND Internal Medicine Hematology & Oncology | DX: C91.10 Chronic lymphocytic leukemia of B-cell type not having achieved remission (principal); Z79.899 Other long term (current) drug therapy | CPT/HCPCS: 99213 ==

== ENCOUNTER → 2018-10-15 | Outpatient (CLI) | payer MEDICARE ==
--- NOTE | 2018-10-15 09:36 | Diagnostic Imaging Report ---
Examination: Abdomen 2 view. History: Abdominal pain. Findings: Comparison is 05/10/2018. Median sternotomy wires are seen. There are cholecystectomy clips and clips at the diaphragmatic hiatus. Bowel gas pattern is normal. Large volume of stool is seen in the colon. Lung bases are clear. No free air seen on the upright radiograph. Impression: 1. Normal bowel gas pattern. Dictated by: Dictated on workstation # [id number]
== END ==
LOC: RAD 08:39
PROVIDERS: ATTEND Nurse Practitioner Family
DX: R10.9 Unspecified abdominal pain (principal); Z90.49 Acquired absence of other specified parts of digestive tract; Z98.890 Other specified postprocedural states
CPT/HCPCS: 74019

== ENCOUNTER 2019-01-29 14:06 | Outpatient (RCR) | payer MEDICARE | END 2019-04-29 | disposition home or self-care (01) | LOC: ONC 14:06 | PROVIDERS: ATTEND Internal Medicine Hematology & Oncology | DX: C91.10 Chronic lymphocytic leukemia of B-cell type not having achieved remission (principal); E66.9 Obesity, unspecified; Z79.899 Other long term (current) drug therapy | CPT/HCPCS: 99213 ==

== ENCOUNTER → 2019-03-06 | Outpatient (CLI) | payer MEDICARE ==
--- NOTE | 2019-03-06 10:03 | Diagnostic Imaging Report ---
PROCEDURE: US Hepatic (Liver). TECHNIQUE: Multiple real-time grayscale images were obtained over the right upper quadrant in various projections. INDICATION: Elevated liver enzymes. FINDINGS: The liver is normal in size at 16.8 cm. Overall parenchyma is somewhat heterogeneous but no discrete liver mass is identified. The portal vein is patent and shows normal direction of flow. The gallbladder is surgically absent. Extrahepatic bile duct is minimally prominent at 8 mm, however this likely owing to postcholecystectomy. Pancreas, aorta and IVC cannot be visualized due to overlying bowel gas. The right kidney demonstrates normal cortical thickness and echogenicity. No calculi or hydronephrosis is identified. There is no ascites. IMPRESSION: 1. Status post cholecystectomy. 2. Mild liver parenchymal heterogeneity but no discrete mass is detected. Dictated by: Dictated on workstation # [id number]
== END ==
LOC: RAD 08:55
PROVIDERS: ATTEND Nurse Practitioner Family
DX: K76.89 Other specified diseases of liver (principal); R74.8 Abnormal levels of other serum enzymes; Z90.49 Acquired absence of other specified parts of digestive tract
CPT/HCPCS: 76705

== ENCOUNTER → 2019-07-30 | Outpatient (CLI) | payer MEDICARE | LOC: EDSTATUS 04-30 08:44 → ONC 08:46 | PROVIDERS: ATTEND Internal Medicine Hematology & Oncology | DX: C91.10 Chronic lymphocytic leukemia of B-cell type not having achieved remission (principal); E66.9 Obesity, unspecified; Z79.899 Other long term (current) drug therapy | CPT/HCPCS: 99213 ==

== ENCOUNTER 2020-02-24 09:31 | Outpatient (RCR) | payer MEDICARE ==
[~2020-02-24 09:31] MED LIST changes: -PANT40TA3; +PANT40TA52
== END 2020-05-24 | disposition home or self-care (01) ==
LOC: ONC 09:31
PROVIDERS: ATTEND Internal Medicine Hematology & Oncology
DX: C91.10 Chronic lymphocytic leukemia of B-cell type not having achieved remission (principal)
CPT/HCPCS: 99213

== ENCOUNTER 2020-08-25 12:43 | Outpatient (RCR) | payer MEDICARE | END 2020-11-23 | disposition home or self-care (01) | LOC: ONC 12:43 | PROVIDERS: ATTEND Internal Medicine Hematology & Oncology | DX: C91.10 Chronic lymphocytic leukemia of B-cell type not having achieved remission (principal); I50.9 Heart failure, unspecified; E66.9 Obesity, unspecified | CPT/HCPCS: 99213 ==

== ENCOUNTER → 2021-03-24 | Outpatient (CLI) | payer MEDICARE | LOC: EDSTATUS 11-24 16:26 → ONC 08:59 | PROVIDERS: ATTEND Internal Medicine Hematology & Oncology | DX: C91.10 Chronic lymphocytic leukemia of B-cell type not having achieved remission (principal); E66.9 Obesity, unspecified | CPT/HCPCS: 99213 ==

== ENCOUNTER → 2021-04-22 | Outpatient (CLI) | payer MEDICARE ==
--- NOTE | 2021-04-22 12:49 | Diagnostic Imaging Report ---
PROCEDURE: MR imaging of the brain without contrast. TECHNIQUE: Multiplanar, multisequence MR imaging of the brain was performed without contrast. INDICATION: Headaches. No prior studies are available for comparison. Ventricles and sulci are appropriate for the patient's age. No sulcal effacement is identified. There is no midline shift. No acute intra-axial or extra-axial hemorrhage is detected. There is no diffusion restriction. The normal expected flow-voids within the carotid siphons are seen. Corpus callosum is unremarkable. The sella and parasellar structures are unremarkable. IMPRESSION: Unremarkable noncontrast MRI of the brain. No acute feature is detected. Dictated by: Dictated on workstation # [id number]
== END ==
LOC: RAD 10:15
PROVIDERS: ATTEND Nurse Practitioner Family
DX: R51.9 Headache, unspecified (principal); R42 Dizziness and giddiness; R20.0 Anesthesia of skin
CPT/HCPCS: 70551

== ENCOUNTER → 2022-04-22 | Outpatient (CLI) | payer MEDICARE ==
--- NOTE | 2022-04-22 14:38 | Diagnostic Imaging Report ---
EXAMINATION: Left hip radiographs, 2 views. COMPARISON: None. HISTORY: 77-year-old male, chronic left hip pain. FINDINGS: There is no identified acute fracture. The left hip is not dislocated. There is no joint space loss of the left hip, osteophyte formation, or subchondral cystic change. IMPRESSION: 1. Unremarkable radiographs of the left hip. Dictated by: Dictated on workstation # [id number]
== END ==
LOC: RAD 09:40
PROVIDERS: ATTEND Family Medicine
DX: M25.552 Pain in left hip (principal); G89.29 Other chronic pain
CPT/HCPCS: 73502